=== PATIENT | female | born 1955 | race Caucasian/White ===

== ENCOUNTER 2022-08-09 05:22 | Outpatient (RCR) | payer OTHER, MEDICARE, SELFPAY | END 2022-09-07 23:59 | disposition home or self-care (01) | LOC: MM 05:22 | PROVIDERS: PCP Internal Medicine; Visit Provider Internal Medicine | DX: Z51.81 Encounter for therapeutic drug level monitoring (principal); Z79.01 Long term (current) use of anticoagulants; I48.20 Chronic atrial fibrillation, unspecified | CPT/HCPCS: 85610; G0463 ==

== ENCOUNTER 2022-09-12 10:49 | Outpatient (RCR) | payer OTHER, MEDICARE, SELFPAY | END 2022-10-08 16:45 | disposition home or self-care (01) | LOC: MM 10:49 | PROVIDERS: PCP Internal Medicine; Visit Provider Internal Medicine | DX: Z51.81 Encounter for therapeutic drug level monitoring (principal); Z79.01 Long term (current) use of anticoagulants; I48.20 Chronic atrial fibrillation, unspecified | CPT/HCPCS: 85610; G0463 ==

== ENCOUNTER 2022-10-09 08:57 | Outpatient (RCR) | payer OTHER, MEDICARE, SELFPAY | END 2022-11-08 15:46 | disposition home or self-care (01) | LOC: MM 08:57 | PROVIDERS: Visit Provider Internal Medicine | DX: Z51.81 Encounter for therapeutic drug level monitoring (principal); Z79.01 Long term (current) use of anticoagulants; I48.20 Chronic atrial fibrillation, unspecified | CPT/HCPCS: 85610; G0463 ==

== ENCOUNTER 2022-10-09 14:28 | Outpatient (OUT) | payer OTHER, MEDICARE, SELFPAY ==
--- NOTE | 2022-10-09 14:32 | MR_ITS ---
[address] [address] Patient Name: RODRICK JESSICA MRN: [id number] date: 1955 Sex: F Assigned Patient Location: MRI Current Patient Location: MRI Accession/Order Number: [id number] Exam Date: 10/09/2022 14:40 Report Date: 10/09/2022 21:04 At the request of: RODRICK KNIGHT Procedure: MR shoulder RT wo con EXAM: MR shoulder RT wo con HISTORY: R anterior shoulder pain M25.511, M24.8 COMPARISON: None available. TECHNIQUE: Multi planar, multi sequence MRI imaging of the right shoulder without contrast. FINDINGS: ROTATOR CUFF: Supraspinatus: Full-thickness, near full width tear of the supraspinatus tendon from the footprint with retraction to the level of the acromion. Few posterior junctional fibers may remain intact. Infraspinatus: Tendinosis with without high-grade tear. Subscapularis: Tendinosis with moderate grade partial-thickness partial width interstitial tearing of the superior fibers at the footprint extending to the glenoid. Teres minor: Intact. MUSCULATURE: Moderate fatty atrophy of the supraspinatus muscle belly. Remaining musculature of the shoulder girdle is normal in bulk and signal characteristics. LONG HEAD BICEPS TENDON: Tendinosis of the intra-articular long head biceps tendon. GLENOID LABRUM: Degenerative tearing and maceration of the posterior superior and superior labrum. OSSEOUS STRUCTURES AND JOINTS: No fracture, dislocation, suspicious bone lesion or edema like bone marrow signal. Osseous acromial outlet: Normal alignment of the acromioclavicular joint with mild osteoarthrosis. Type 2 acromion without significant downsloping. Subacromial enthesophyte. Mild edema signal with a small volume of fluid within the subacromial-subdeltoid bursa. Glenohumeral joint: No joint effusion. Articular cartilage is intact. OTHER: No axillary lymphadenopathy or soft tissue mass. MR/MR shoulder RT wo con IMPRESSION: 1. Full-thickness, near full width tear of the supraspinatus tendon from the footprint with retraction to the level of the acromion. 2. Subscapularis tendinosis with moderate grade partial-thickness partial width interstitial tearing of the superior fibers at the footprint extending to the glenoid. 3. Tendinosis of the intra-articular long head biceps tendon. 4. Degenerative tearing and maceration of the posterior superior and superior labrum. 5. Subacromial enthesophyte, which can predispose to extrinsic impingement. 6. Mild acromioclavicular joint osteoarthritis. Electronically authenticated by: AMANDEEP TAPIA Date: 10/09/2022 21:04
== END 2022-10-09 14:29 | disposition home or self-care (01) ==
LOC: MRI 14:29
PROVIDERS: PCP Physician Assistant; Visit Provider Physician Assistant
DX: M25.511 Pain in right shoulder (principal); M24.811 Other specific joint derangements of right shoulder, not elsewhere classified; M75.101 Unspecified rotator cuff tear or rupture of right shoulder, not specified as traumatic
CPT/HCPCS: 73221

== ENCOUNTER 2022-10-24 08:21 | Outpatient (OUT) | payer OTHER, MEDICARE, SELFPAY ==
[2022-10-24 08:49] LABS: Basophils Percent Auto 0.4 % (0.2-2.0); Eosinophils Absolute Auto 0.1 10^3/uL (0.0-0.7); Eosinophils Percent Auto 0.8 % (0.9-7.0); Hemoglobin 12.8 g/dL (12.0-16.0); Immature Granulocytes Abs Auto 0.05 10^3/uL (0.00-0.03); Immature Granulocytes Pct Auto 0.5 % (0.0-0.5); Lymphocytes Absolute Auto 2.2 10^3/uL (1.2-3.8); Lymphocytes Percent Auto 22.6 % (20.5-60.0); Mean Corpuscular Hemoglobin 27.5 pg (26.7-34.0); Mean Platelet Volume 10.2 fL (9.5-13.5); Monocytes Absolute Auto 0.6 10^3/uL (0.3-0.8); Monocytes Percent Auto 6.4 % (1.7-12.0); Neutrophils Absolute Auto 6.9 10^3/uL (1.4-6.5); Neutrophils Percent Auto 69.3 % (43.0-75.0); Platelet Count 170 10^3/uL (150-450); Red Blood Count 4.65 10^6/uL (4.20-5.40); Red Cell Distribution Width 13.7 % (11.0-15.0); White Blood Count 9.9 10^3/uL (4.0-11.0)
[2022-10-24 09:24] LABS: Anion Gap 9.2; BUN Creatinine Ratio 31.8; Calcium 9.6 mg/dL (8.5-10.1); Carbon Dioxide 32.8 mmol/L (21.0-32.0); Chloride 98 mmol/L (98-107); Estimated GFR (African America >60 (>=60); Estimated GFR (Non-African Ame >60 (>=60); Glucose 93 mg/dL (74-106); Sodium 137 mmol/L (136-145)
== END 2022-10-24 08:22 | disposition home or self-care (01) ==
LOC: LAB 08:23
PROVIDERS: PCP Physician Assistant; Visit Provider Internal Medicine Cardiovascular Disease
DX: I10 Essential (primary) hypertension (principal); I48.21 Permanent atrial fibrillation; Z79.899 Other long term (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; Z79.01 Long term (current) use of anticoagulants
CPT/HCPCS: 36415; 80048; 85025

== ENCOUNTER 2022-10-26 09:23 | Outpatient (OUT) | payer OTHER, MEDICARE, SELFPAY ==
[2022-10-26 10:34] LABS: Chol HDL Ratio 2.6; Cholesterol 159 mg/dL (<=200); HDL Cholesterol 62 mg/dL (40-60); Triglycerides 100 mg/dL (<=150)
== END 2022-10-26 09:24 | disposition home or self-care (01) ==
LOC: LAB 09:25
PROVIDERS: PCP Physician Assistant; Visit Provider Nurse Practitioner Family
DX: E07.9 Disorder of thyroid, unspecified (principal); Z13.220 Encounter for screening for lipoid disorders
CPT/HCPCS: 36415; 80061; 84443

== ENCOUNTER 2022-11-09 07:57 | Outpatient (RCR) | payer OTHER, MEDICARE, SELFPAY | END 2022-12-07 16:30 | disposition home or self-care (01) | LOC: MM 07:57 | PROVIDERS: PCP Physician Assistant; Visit Provider Internal Medicine | DX: Z51.81 Encounter for therapeutic drug level monitoring (principal); Z79.01 Long term (current) use of anticoagulants; I48.20 Chronic atrial fibrillation, unspecified | CPT/HCPCS: 85610; G0463 ==

== ENCOUNTER 2022-12-04 08:59 | Outpatient (OUT) | payer OTHER, MEDICARE, SELFPAY ==
[2022-12-04 10:42] LABS: Anion Gap 11.2; Calcium 10.5 mg/dL (8.5-10.1); Carbon Dioxide 32.8 mmol/L (21.0-32.0); Chloride 98 mmol/L (98-107); Estimated GFR (African America >60 (>=60); Estimated GFR (Non-African Ame 52 (>=60); Glucose 95 mg/dL (74-106); Sodium 139 mmol/L (136-145)
== END 2022-12-04 09:00 | disposition home or self-care (01) ==
LOC: LAB 09:00
PROVIDERS: PCP Physician Assistant; Visit Provider Internal Medicine Cardiovascular Disease
DX: E87.6 Hypokalemia (principal); I10 Essential (primary) hypertension
CPT/HCPCS: 36415; 80048

== ENCOUNTER 2022-12-10 02:17 | Outpatient (RCR) | payer OTHER, MEDICARE, SELFPAY | END 2023-01-08 17:33 | disposition home or self-care (01) | LOC: MM 02:17 | PROVIDERS: PCP Physician Assistant; Visit Provider Internal Medicine | DX: Z51.81 Encounter for therapeutic drug level monitoring (principal); Z79.01 Long term (current) use of anticoagulants; I48.20 Chronic atrial fibrillation, unspecified | CPT/HCPCS: 85610; G0463 ==

== ENCOUNTER 2023-01-01 15:21 | Outpatient (OUT) | payer OTHER, MEDICARE, SELFPAY ==
[2023-01-01 15:49] LABS: Anion Gap 10.6; BUN Creatinine Ratio 17.8; Calcium 9.5 mg/dL (8.5-10.1); Carbon Dioxide 27.5 mmol/L (21.0-32.0); Chloride 104 mmol/L (98-107); Estimated GFR (African America >60 (>=60); Estimated GFR (Non-African Ame 51 (>=60); Glucose 75 mg/dL (74-106); Potassium 4.1 mmol/L (3.5-5.1); Sodium 138 mmol/L (136-145)
== END 2023-01-01 15:22 | disposition home or self-care (01) ==
LOC: LAB 15:21
PROVIDERS: PCP Physician Assistant; Visit Provider Internal Medicine Cardiovascular Disease
DX: R60.0 Localized edema (principal); I10 Essential (primary) hypertension
CPT/HCPCS: 36415; 80048

== ENCOUNTER 2023-01-09 00:38 | Outpatient (RCR) | payer OTHER, MEDICARE, SELFPAY | END 2023-02-07 16:44 | disposition home or self-care (01) | LOC: MM 00:38 | PROVIDERS: PCP Physician Assistant; Visit Provider Internal Medicine | DX: Z51.81 Encounter for therapeutic drug level monitoring (principal); Z79.01 Long term (current) use of anticoagulants; I48.20 Chronic atrial fibrillation, unspecified | CPT/HCPCS: 85610; G0463 ==

== ENCOUNTER 2023-01-30 08:39 | Outpatient (OUT) | payer OTHER, MEDICARE, SELFPAY ==
[2023-01-30 09:01] LABS: Basophils Percent Auto 0.6 % (0.2-2.0); Eosinophils Absolute Auto 0.1 10^3/uL (0.0-0.7); Hemoglobin 11.7 g/dL (12.0-16.0); Immature Granulocytes Abs Auto 0.01 10^3/uL (0.00-0.03); Immature Granulocytes Pct Auto 0.2 % (0.0-0.5); Lymphocytes Absolute Auto 1.3 10^3/uL (1.2-3.8); Lymphocytes Percent Auto 25.1 % (20.5-60.0); Mean Corpuscular HGB Conc 30.8 g/dL (29.9-35.2); Mean Corpuscular Hemoglobin 28.3 pg (26.7-34.0); Mean Platelet Volume 10.4 fL (9.5-13.5); Monocytes Absolute Auto 0.3 10^3/uL (0.3-0.8); Monocytes Percent Auto 6.1 % (1.7-12.0); Neutrophils Absolute Auto 3.5 10^3/uL (1.4-6.5); Platelet Count 145 10^3/uL (150-450); Red Blood Count 4.13 10^6/uL (4.20-5.40); Red Cell Distribution Width 14.1 % (11.0-15.0); White Blood Count 5.3 10^3/uL (4.0-11.0)
[2023-01-30 09:50] LABS: Percent Iron Saturation 18.3 %
[2023-01-30 09:51] LABS: Alanine Aminotransferase 22 U/L (14-59); Albumin Globulin Ratio 0.9; Albumin Level 3.4 g/dL (3.4-5.0); Alkaline Phosphatase 87 U/L (46-116); Anion Gap 10.9; Aspartate Amino Transferase 20 U/L (15-37); BUN Creatinine Ratio 26.4; Bilirubin Total 1.1 mg/dL (0.2-1.0); Calcium 9.4 mg/dL (8.5-10.1); Carbon Dioxide 27.1 mmol/L (21.0-32.0); Chloride 105 mmol/L (98-107); Estimated GFR (African America >60 (>=60); Estimated GFR (Non-African Ame >60 (>=60); Glucose 89 mg/dL (74-106); Magnesium 2.1 mg/dL (1.8-2.4); Phosphorus 2.8 mg/dL (2.6-4.7); Sodium 139 mmol/L (136-145); Total Protein 7.4 g/dL (6.4-8.2)
[2023-02-04 00:06] LABS: Vitamin B1 (Thiamine), Blood 213.3 nmol/L (66.5-200.0)
== END 2023-01-30 08:40 | disposition home or self-care (01) ==
LOC: LAB 08:42
PROVIDERS: PCP Internal Medicine
DX: K90.9 Intestinal malabsorption, unspecified (principal); Z98.84 Bariatric surgery status; R53.83 Other fatigue; E55.9 Vitamin D deficiency, unspecified
CPT/HCPCS: 36415; 80053; 82306; 82607; 82728; 82746; 83540; 83550; 83735; 84100; 84425; 85025

== ENCOUNTER 2023-02-08 08:48 | Outpatient (RCR) | payer OTHER, MEDICARE, SELFPAY | END 2023-03-08 15:41 | disposition home or self-care (01) | LOC: MM 08:48 | PROVIDERS: PCP Internal Medicine; Visit Provider Internal Medicine | DX: Z51.81 Encounter for therapeutic drug level monitoring (principal); Z79.01 Long term (current) use of anticoagulants; I48.20 Chronic atrial fibrillation, unspecified | CPT/HCPCS: 85610; G0463 ==

== ENCOUNTER 2023-03-11 00:24 | Outpatient (RCR) | payer OTHER, MEDICARE, SELFPAY | END 2023-04-10 15:42 | disposition home or self-care (01) | LOC: MM 00:24 | PROVIDERS: PCP Internal Medicine; Visit Provider Internal Medicine | DX: Z51.81 Encounter for therapeutic drug level monitoring (principal); Z79.01 Long term (current) use of anticoagulants; I48.20 Chronic atrial fibrillation, unspecified | CPT/HCPCS: 85610; G0463 ==

== ENCOUNTER 2023-04-11 00:39 | Outpatient (RCR) | payer OTHER, MEDICARE, SELFPAY | END 2023-05-09 17:05 | disposition home or self-care (01) | LOC: MM 00:39 | PROVIDERS: PCP Internal Medicine; Visit Provider Internal Medicine | DX: Z51.81 Encounter for therapeutic drug level monitoring (principal); Z79.01 Long term (current) use of anticoagulants; I48.20 Chronic atrial fibrillation, unspecified | CPT/HCPCS: 85610; G0463 ==

== ENCOUNTER 2023-05-06 08:43 | Outpatient (OUT) | payer OTHER, MEDICARE, SELFPAY ==
--- OUTSIDE RECORDS SUMMARY | 2023-05-06 09:05 | XMS_ITS | CCD ---
Author Name Unknown Address [address] [place] [address] Organization [facility] Care Team Providers Care Plush Dresser Name Role Phone STEPHANIE CAVAZOS AM Admitting Unavailable STEPHANIE CAVAZOS AM Attending Unavailable NOEL FARNSWORTH Referring Unavailable NOEL FARNSWORTH Primary Care Unavailable PHYSICIAN, DEFAULT Admitting Unavailable PHYSICIAN, DEFAULT Attending Unavailable NOEL FARNSWORTH Primary Care Unavailable Unavailable Unavailable Unavailable Unavailable SALMA Farnsworth Primary Care Provider TANIA Strickland Attending Provider [phone] DO Sherlyn Rucker Referring Provider GLEN Strickland Attending Provider [phone] DR NOEL FARNSWORTH Primary Care Unavailable MISC, DR CORTEZ Attending Unavailable MISC, DR CORTEZ Admitting Unavailable MISC, DR CORTEZ Consulting Unavailable FASHAIKH DE LA CRUZ H Admitting Unavailable SHAIKH MURILLO H Attending Unavailable DR NOEL FARNSWORTH Primary Care Unavailable DR NOEL FARNSWORTH Primary Care Unavailable ASHLIE, DR NARAYAN Jeter Admitting Unavailabl e ASHLIE, DR NARAYAN Jeter Attending Unavailabl e LEON, DR HARPREET Conner Consulting Unavailable CARYN .KATIE Consulting Unavailaugusto e DR NOEL FARNSWORTH Primary Care Unavailable PRABHAKAR, DR COREY Batista Admitting Unavailable PRABHAKAR, DR COREY Batista Consulting Unavailable PRABHAKAR, DR COREY Batista Attending Unavailable DR NOEL FARNSWORTH Primary Care Unavailable PRABHAKAR, DR COREY Batista Consulting Unavailable PRABHAKAR, DR COREY Batista Attending Unavailable PRABHAKAR, DR COREY Batista Admitting Unavailable FAWWACintia, H Admitting Unavailable FAWLENIN, KOCH H Attending Unavailable DR NOEL FARNSWORTH Primary Care Unavailable FAWWAD, KOCH H Admitting Unavailable FAWWAD, KOCH H Attending Unavailable FARNSWORTH, DR PETERSON Primary Care Unavailable ERWIN, AUDELIA Attending Unavailable ERWIN, AUDELIA Admitting Unavailable ERWIN, AUDELIA Consulting Unavailable ANA MARIA, DR PETERSON Primary Care Unavailable FAWWAD, KOCH H Attending Unavailable FARNSWORTH, DR PETERSON Primary Care Unavailable FAWWAD, KOCH H Admitting Unavailable FAWWAD, KOCH H Admitting Unavailable FAWWAD, KOCH H Attending Unavailable FARNSWORTH, DR PETERSON Primary Care Unavailable FAWWAD, KOCH H Admitting Unavailable FAWWAD, KOCH H Attending Unavailable FARNSWORTH, DR PETERSON Primary Care Unavailable FAWWAD, KOCH H Admitting Unavailable FAWWAD, KOCH H Attending Unavailable FARNSWORTH, DR PETERSON Primary Care Unavailable FAWWAD, KOCH H Attending Unavailable FARNSWORTH, DR PETERSON Primary Care Unavailable FAWWAD, KOCH H Admitting Unavailable FAWWAD, KOCH H Attending Unavailable FARNSWORTH, DR PETERSON Primary Care Unavailable FAWWAD, KOCH H Admitting Unavailable FAWWAD, KOCH H Attending Unavailable FAWWAD, KOCH H Admitting Unavailable FARNSWORTH, DR PETERSON Primary Care Unavailable LALOR, DEEPIKA Attending Unavailable LALOR, PETER Admitting Unavailable LALOR, DEEPIKA Consulting Unavailable FARNSWORTH, DR PETERSON Primary Care Unavailable MISC, DR CORTEZ Attending Unavailable MISC, DR CORTEZ Admitting Unavailable MISC, DR CORTEZ Consulting Unavailable ANA MARIA, DR PETERSON Primary Care Unavailable FARNSWORTH, DR PETERSON Primary Care Unavailable HIGHLANDER, DEEPIKA Chamberlain Attending Unavailable HIGHLANDER, DEEPIKA Chamberlain Admitting Unavailable ZIEBER, DR BETY Pompa Consulting Unavailable HIGHLANDERDEEPIKA Consulting Unavailable LALOR, DEEPIKA Attending Unavailable LALOR, PETER Admitting Unavailable LALOR, DEEPIKA Consulting Unavailable ANA MARIA, DR PETERSON Primary Care Unavailable ANA MARIA, DR PETERSON Primary Care Unavailable PRABHAKAR, DR COREY Batista Consulting Unavailable PRABHAKAR, DR COREY Batista Attending Unavailable PRABHAKAR, DR COREY Batista Admitting Unavailable FAWWAD, KOCH H Attending Unavailable FARNSWORTH, DR PETERSON Primary Care Unavailable FAWWAD, KOCH H Admitting Unavailable Noel Farnsworth Unavailable [facility], Dr. Corey Borrero Attending Soniya vailable Prabhakar, Dr. Corey Borrero Referring Soniya vailable Farnsworth II, Dr. Noel Payne Primary Care Soniya vailable Prabhakar, Dr. Corey Borrero Attending Soniya vailable Prabhakar, Dr. Corey Borrero Referring Soniya vailable Farnsworth II, Dr. Noel Payne Primary Care Soniya vailable Farnsworth, II Noel Primary Care Provider Self, Referral Attending Provider Unavailable Farnsworth, II Noel Attending Provider [phone] HARPREET BROOKE Attending Unavailable LAZARO BORRERO Referring Unavailable FARNSWORTH, NOEL Snow Attending Unavailable ANA MARIA, NOEL Snow Attending Unavailable EDWARDOHARPREET Attending Unavailable BROWNLAZARO Referring Unavailable EDWARDO, HARPREET Snow Attending Unavailable BROWN, LAZARO A Referring Unavailable BROWN, LAZARO Espino Attending Unavailable RINKES, SHERLYN Carbone Attending Unavailable RINSHERLYN ZELAYA Referring Unavailable EDWARDO, HARPREET Snow Attending Unavailable LAZARO BORRERO Referring Unavailable Noel Farnsworth Admitting Unavailable Noel Farnsworth Primary Care Unavailable Noel Farnsworth Attending Unavailable FarnsworthNoel Primary Care Unavailable Farnsworth, Noel Attending Unavailable Noel Farnsworth Admitting Unavailable Neol Farnsworth Primary Care Unavailable Self, Referral Admitting Unavailable Self, Referral Attending Unavailable Noel Farnsworth MD Primary Care Provider [phone] Allergies Allergy Classification Reported Allergen(s) Allergy Type Date of Onset Reaction(s) Facility (1 source) PARFON-FORTE; Translations: [PARFON-FORTE] Propensity to adverse reactions (disorder) 9 [facility] Repository (10 sources) Chlorzoxazone; Translations: [Parafon Forte DSC TABS] Drug Allergy Hives -[facility] y 250 DO Work Phone: (1 source) Parafon Forte DSC Drug allergy (disorder) 5 [facility] Repository (2 sources) Chlorzoxazone Drug Allergy 8 Hives, Unknown [facility] (2 sources) gabapentin Drug Allergy 1 Unknown [facility] Medications Current Medications Medication Drug Class(es) Dates Sig (Normalized) Sig (Original) ascorbic acid 1000 mg oral tablet (2 sources) Vitamin C Ascorbic Acid (vitamin C) 1000 MG tablet 2 tablets 0 Active aspirin 81 mg delayed release oral tablet (2 sources) Platelet Aggregation Inhibitor, Nonsteroidal Anti-inflammatory Drug take 1 tablet by mouth in the morning aspirin 81 MG EC tablet Take 1 tablet by mouth in the morning. 0 Active azithromycin 250 mg oral tablet (2 sources) Macrolide Antimicrobial Start: 04-10-2023 End: 04-24-2023 take 2 tablets by mouth once daily, then take 1 tablet by mouth once daily azithromycin (Zithromax) 250 MG tablet Indications: Acute non-recurrent sinusitis, unspecified location Take 2 tablets (500 mg) by mouth Daily for 1 day, THEN 1 tablet (250 mg) Daily for 6 days. 8 tablet 0 04/17/2023 04/24/2023 Active calcium carbonate 1500 mg oral tablet (12 sources) take 1 tablet by mouth in the morning calcium carbonate 1500 (600 Ca) MG tablet Take 600 mg by mouth in the morning. 0 Active cholecalciferol 1.25 mg oral capsule (2 sources) Vitamin D Start: 02-27-2023 cholecalciferol (Vitamin D-3) 1.25 MG (59543 UT) capsule Indications: Vitamin D deficiency Take one capsule daily 100 capsule 3 02/27/2023 Active copper gluconate 2 mg oral tablet (12 sources) take 1 tablet by mouth in the morning Copper Gluconate 2 MG tablet Take 1 tablet by mouth in the morning. 0 Active ferrous sulfate 325 mg oral tablet (12 sources) Start: 09-14-2022 take 1 tablet by mouth three times weekly ferrous sulfate 325 (65 Fe) MG tablet Indications: Bariatric surgery status TAKE 1 TABLET BY MOUTH 3 TIMES A WEEK (SATURDAY, SATURDAY,SATURDAY) 36 tablet 3 09/14/2022 Active Start: 02-09-2020 take 1 tablet by toni th twice daily FeroSul 325 (65 Fe) MG Oral Tablet TAKE 1 TABLET BY MOUTH TWICE DAILY Quantity: 180 Refills: 0 Ordered: 28-Apr-2020 DO Start : 09-Feb-2020 Active fluticasone propionate 0.05 mg/actuat metered dose nasal spray (2 sources) Corticosteroid Start: 12-05-2022 take 1 spray(s) nasal route in the morning fluticasone (Flonase) 50 MCG/ACT nasal spray Indications: Acute dysfunction of left eustachian tube Administer 1 spray into each nostril in the morning. Shake gently. Before first use, prime pump. After use, clean tip and replace cap.. 16 g 2 12/05/2022 Active loratadine 10 mg oral tablet (12 sources) loratadine (Claritin) 10 MG tablet 1 (one) time each day at the same time. 0 Active Magnesium (5 sources) take 250 mg by mouth in the morning MAGNESIUM PO Take 250 mg by mouth in the morning. 0 Active take 1 tablet by mouth once key y Magnesium 250 MG Oral Tablet TAKE 1 TABLET DAILY. Quantity: 0 Refills: 0 Ordered: 23-Oct-2022 DO Active metoprolol tartrate 25 mg oral tablet (12 sources) beta-Adrenergic Papo Start: 02-27-2023 take 1 tablet by mouth once metoprolol tartrate (Lopressor) 25 MG tablet Indications: Essential hypertension, benign (CMS/HCC) Take 1 tablet (25 mg) by mouth every 12 (twelve) hours 200 tablet 3 02/27/2023 Active Start: 02-09-2020 take 1 tablet by toni th twice daily Metoprolol Tartrate 25 MG Oral Tablet TAKE 1 TABLET TWICE DAILY. Quantity: 180 Refills: 3 Ordered: 23-Oct-2022 Corey Prabhakar MD Start : 09-Feb-2020 Active metroNIDAZOLE 500 mg oral tablet (2 sources) Nitroimidazole Antimicrobial Start: 02-07-2023 take 1 tablet by mouth in the morning metroNIDAZOLE (Flagyl) 500 MG tablet Take 500 mg by mouth in the morning. 0 02/07/2023 Active Dinosaur-3 Fatty Acids (Fish Oil) 1200 MG capsule delayed-release (2 sources) Dinosaur-3 Fatty Ac ids (Fish Oil) 1200 MG capsule delayed-release Fish Oil 0 Active pantoprazole 40 mg delayed release oral tablet (12 sources) Proton Pump Inhibitor Start: 02-27-2023 take 1 tablet by mouth in the morning pantoprazole (ProtoNix) 40 MG EC tablet Indications: Gastroesophageal reflux disease without esophagitis Take 1 tablet (40 mg) by mouth in the morning. 100 tablet 3 02/27/2023 Active Start: 02-09-2020 take 1 tablet by toni th once daily Pantoprazole Sodium 40 MG Oral Tablet Delayed Release TAKE 1 TABLET BY MOUTH EVERY DAY Quantity: 90 Refills: 0 Ordered: 28-Apr-2020 DO Start : 09-Feb-2020 Active potassium chloride 10 meq extended release oral capsule (14 sources) Start: 03-20-2023 potassium chlo ride ER (Micro-K) 10 MEQ ER capsule Indications: Essential hypertension, benign (CMS/HCC) TAKE 3 CAPSULES BY MOUTH THREE TIMES DAILY WITH FOOD 300 capsule 3 03/20/2023 Active Start: 05-09-2022 Potassium Chlo ride Carmen ER 20 MEQ Oral Tablet Extended Release take 4 tablets ( 80 meq) daily Quantity: 360 Refills: 3 Ordered: 23-Oct-2022 Corey Prabhakar MD Start : 09-May-2022 Active new meq Start: 11-06-2021 take 3 tablets by mo uth three times daily Potassium Chloride ER 10 MEQ Oral Tablet Extended Release TAKE 3 TABLETS BY MOUTH 3 TIMES A DAY Quantity: 810 Refills: 3 Ordered: 28-Nov-2021 Corey Prabhakar MD Start : 06-Nov-2021 Active Start: 02-09-2020 take 2 capsules by m out three times daily Potassium Chloride ER 10 MEQ Oral Capsule Extended Release TAKE 2 CAPSULE 3 times daily Quantity: 0 Refills: 0 Ordered: 30-Apr-2020 DO Start : 09-Feb-2020 Active torsemide 20 mg oral tablet (12 sources) Loop Diuretic Start: 10-26-2020 take 1 tablet by mouth once daily torsemide (Demadex) 20 MG tablet Indications: Edema, unspecified type TAKE 1 TABLET BY MOUTH EVERY DAY 100 tablet 3 11/02/2022 Active turmeric extract 500 mg oral capsule (5 sources) take 1 tablet by mouth in the morning Turmeric 500 MG tablet Take 1 tablet by mouth in the morning. 0 Active take 1 tablet by mouth once key y Turmeric 500 MG Oral Tablet one daily Quantity: 0 Refills: 0 Ordered: 09-May-2022 DO Active Zinc (2 sources) zinc 100 MG tabl et 1 (one) time each day at the same time. 0 Active zinc gluconate 50 mg oral tablet (12 sources) take 1 tablet by toni th in the morning zinc gluconate 50 MG tablet Take 50 mg by mouth in the morning. 0 Active Completed/Discontinued Medications Medication Drug Class(es) Dates Sig (Normalized) Sig (Original) cephalexin 500 mg oral capsule (3 sources) Cephalosporin Antibacterial take 1 capsule by mouth every eight hours Cephalexin 500 MG Oral Capsule TAKE 1 CAPSULE EVERY 8 HOURS UNTIL GONE. Quantity: 0 Refills: 0 Ordered: 01-Nov-2021 DO Active famotidine 20 mg oral tablet (12 sources) Histamine-2 Receptor Antagonist Start: 05-04-2020 take 1 tablet by mouth once daily at bedtime as needed Famotidine 20 MG Oral Tablet TAKE 1 TABLET BY MOUTH EVERY DAY AT BEDTIME NEEDED Quantity: 30 Refills: 0 Ordered: 04-May-2020 DO Start : 04-May-2020 Active Fish Oil CAPS (10 sources) Fish Oil CAPS ta ke 1400mg once daily Quantity: 0 Refills: 0 Ordered: 26-Apr-2021 DO Active metOLazone 5 mg oral tablet (4 sources) Thiazide-like Diuretic Start: 11-06-2021 take 1 tablet by mouth every other day metOLazone 5 MG Oral Tablet TAKE 1 TABLET EVERY OTHER DAY Quantity: 45 Refills: 3 Ordered: 09-May-2022 Corey Prabhakar MD Start : 06-Nov-2021 Active new start Multi Vitamin Oral Tablet (10 sources) take 1 tablet by mouth once daily Multi Vitamin Oral Tablet TAKE 1 TABLET DAILY. Quantity: 0 Refills: 0 Ordered: 26-Apr-2021 DO Active Probiotic CAPS (10 sources) Probiotic CAPS T milo as directed Quantity: 0 Refills: 0 Ordered: 26-Apr-2021 DO Active spironolactone 25 mg oral tablet (7 sources) Aldosterone Antagonist Start: 11-06-2021 take 1 tablet by mouth once daily Spironolactone 25 MG Oral Tablet TAKE 1 TABLET DAILY. Quantity: 90 Refills: 3 Ordered: 23-Oct-2022 Corey Prabhakar MD Start : 06-Nov-2021 Active new start Vitamin B 12 TABS (10 sources) Vitamin B 12 TAB S TAKE 1 TABLET DAILY. Quantity: 0 Refills: 0 Ordered: 26-Apr-2021 DO Active Vitamin C 2000 MG TABS (10 sources) Vitamin C 2000 M G TABS Take as directed Quantity: 0 Refills: 0 Ordered: 26-Apr-2021 DO Active Vitamin D3 TABS (10 sources) Vitamin D3 TABS take 80,000 unints as directed. Quantity: 0 Refills: 0 Ordered: 26-Apr-2021 DO Active warfarin sodium 2.5 mg oral tablet (12 sources) Vitamin K Antagonist Start: 08-24-2020 Warfarin Sodium 2.5 MG Oral Tablet Agnes manages warfarin at [facility] Quantity: 0 Refills: 0 Ordered: 23-Apr-2021 DO Start : 24-Aug-2020 Active warfarin (Coumad in) 5 MG tablet 1 (one) time each day at the same time. 0 Active Problems Active Problems Problem Classification Problem Date Documented Date Episodic/Chronic Asthma (2 sources) Asthmatic bronchitis; Translations: [Unspecified asthma, uncomplicated] Onset: 8 12-05-2022 Chronic Cardiac dysrhythmias (14 sources) Unspecified atrial fibrillation; Translations: [Permanent atrial fibrillation] Onset: 8 10-25-2022 Chronic Coagulation and hemorrhagic disorders (2 sources) Thrombocytopenic disorder; Translations: [Thrombocytopenia, unspecified] Onset: 8 12-05-2022 Chronic Conditions associated with dizziness or vertigo (2 sources) Cochlear hydrops of right inner ear; 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, right ear] Onset: 0 12-05-2022 Chronic Deficiency and other anemia (1 source) Iron deficiency anemia, unspecified; Translations: [IRON DEFICIENCY ANEMIA UNSPECIFIED] Onset: 3 Episodic Deficiency and other anemia (1 source) Anemia, unspecified; Translations: [ANEMIA UNSPECIFIED] Onset: 3 Episodic Esophageal disorders (4 sources) Gastroesophageal reflux disease; Translations: [Gastro-esophageal reflux disease without esophagitis] Onset: 1 10-25-2022 Chronic Essential hypertension (12 sources) Essential hypertension; Translations: [Unspecified essential hypertension] Onset: 3 12-05-2022 Chronic Genitourinary symptoms and ill-defined conditions (2 sources) Urge incontinence of urine; Translations: [Urge incontinence] Onset: 3 12-05-2022 Chronic Heart valve disorders (2 sources) Mitral valve prolapse; Translations: [Nonrheumatic mitral (valve) prolapse] Onset: 3 10-25-2022 Chronic Hypertension with complications and secondary hypertension (1 source) Hypertensive heart disease with heart failure; Translations: [HTN HEART DISEASE W/HEART FAIL] Onset: 2 Chronic Menopausal disorders (3 sources) Other primary ovarian failure; 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] Onset: 3 12-05-2022 Chronic Nonmalignant breast conditions (2 sources) Fibrocystic disease of breast; Translations: [Diffuse cystic mastopathy of unspecified breast] Onset: 6 12-05-2022 Chronic Nutritional deficiencies (3 sources) Vitamin D deficiency, unspecified; Translations: [Vitamin D deficiency] Onset: 9 12-05-2022 Chronic Osteoarthritis (2 sources) Osteoarthritis of right knee joint; Translations: [Unilateral primary osteoarthritis, right knee] Onset: 9 12-05-2022 Chronic Osteoporosis (2 sources) Senile osteoporosis; Translations: [Age-related osteoporosis without current pathological fracture] Onset: 0 12-05-2022 Chronic Other aftercare (9 sources) Encounter for therapeutic drug level monitoring; Translations: [ENCOUNTER FOR THERAPEUTIC DRUG LEVEL MONITORING] Onset: 8 Episodic Other aftercare (2 sources) termite helper (current) use of anticoagulants; Translations: [RESIDENTIAL (CURRENT) USE OF ANTICOAGULANTS] Onset: 8 Episodic Other diseases of veins and lymphatics (1 source) Lymphedema, not elsewhere classified; Translations: [Lymphedema, not elsewhere classified] Onset: 3 Chronic Other diseases of veins and lymphatics (2 sources) Lymphedema; Translations: [Lymphedema, not elsewhere classified] Onset: 9 12-05-2022 Chronic Other ear and sense organ disorders (2 sources) Sensorineural hearing loss, unilateral, left ear, with unrestricted hearing on the contralateral side; Translations: [Sensorineural hearing loss, unilateral] Onset: 0 12-05-2022 Chronic Other endocrine disorders (4 sources) Secondary hyperparathyroidism, not elsewhere classified; Translations: [SECONDARY HYPERPARATHYROIDISM NEC] Onset: 3 Chronic Other endocrine disorders (2 sources) Hyperparathyroidism; Translations: [Hyperparathyroidism, unspecified] Onset: 9 12-05-2022 Chronic Other gastrointestinal disorders (5 sources) Intestinal malabsorption, unspecified; Translations: [INTESTINAL MALABSORPTION UNS] Onset: 2 Chronic Other gastrointestinal disorders (2 sources) Abnormal intestinal absorption; Translations: [Intestinal malabsorption, unspecified] Onset: 0 12-05-2022 Chronic Other gastrointestinal disorders (1 source) Bariatric surgery status; Translations: [BARIATRIC SURGERY STATUS] Onset: 3 Episodic Other nervous system disorders (2 sources) Carpal tunnel syndrome; Translations: [Carpal tunnel syndrome, unspecified upper limb] Onset: 8 12-05-2022 Chronic Other nervous system disorders (2 sources) Piriformis syndrome; Translations: [Lesion of sciatic nerve, unspecified lower limb] Onset: 3 12-05-2022 Chronic Other non-traumatic joint disorders (2 sources) Derangement of left shoulder joint; Translations: [Other specific joint derangements of left shoulder, not elsewhere classified] Onset: 7 12-05-2022 Chronic Other non-traumatic joint disorders (2 sources) Monoarthritis; Translations: [Monoarthritis, not elsewhere classified, unspecified site] Onset: 0 12-05-2022 Chronic Other nutritional; endocrine; and metabolic disorders (7 sources) Body mass index 40+ - severely obese; Translations: [Morbid obesity] Chronic Other nutritional; endocrine; and metabolic disorders (1 source) Hypomagnesemia; Translations: [HYPOMAGNESEMIA] Onset: 3 Chronic Other nutritional; endocrine; and metabolic disorders (1 source) Morbid (severe) obesity due to excess calories; Translations: [MORBID SEVERE OBES D/T EXCESS FERNANDO] Onset: 2 Chronic Other nutritional; endocrine; and metabolic disorders (3 sources) Severe obesity; Translations: [Morbid obesity] Chronic Other nutritional; endocrine; and metabolic disorders (2 sources) Hypercalcemia; Translations: [Hypercalcemia] Onset: 8 12-05-2022 Chronic Other nutritional; endocrine; and metabolic disorders (2 sources) Intestinal disaccharidase deficiency; Translations: [Lactose intolerance, unspecified] Onset: 9 12-05-2022 Chronic Other nutritional; endocrine; and metabolic disorders (2 sources) Morbid obesity; Translations: [Morbid (severe) obesity due to excess calories] Onset: 3 12-05-2022 Chronic Other upper respiratory disease (2 sources) Seasonal allergy; Translations: [Other seasonal allergic rhinitis] Onset: 1 12-05-2022 Chronic Other upper respiratory infections (2 sources) Chronic sinusitis; Translations: [Other chronic sinusitis] Onset: 3 12-05-2022 Chronic Other upper respiratory infections (1 source) Acute sinusitis; Translations: [Acute sinusitis, unspecified] 04-17-2023 Episodic Residual codes; unclassified (10 sources) Sleep apnea; Translations: [Unspecified sleep apnea] Chronic Residual codes; unclassified (2 sources) Obstructive sleep apnea syndrome; Translations: [Obstructive sleep apnea (adult) (pediatric)] Onset: 6 12-05-2022 Chronic Screening and history of mental health and substance abuse codes (10 sources) Ex-smoker; Translations: [Personal history of tobacco use] Episodic Thyroid disorders (2 sources) Non-toxic multinodular goiter; Translations: [Nontoxic multinodular goiter] Onset: 5 12-05-2022 Chronic Unclassified (2 sources) DX Onset: 8 Unclassified (5 sources) Chronic atrial fibrillation, unspecified; Translations: [CHRONIC ATRIAL FIBRILLATION UNSPEC] Onset: 3 Unclassified (4 sources) Permanent atrial fibrillation; Translations: [PERMANENT ATRIAL FIBRILLATION] Onset: 2 Unclassified (1 source) Encounter for screening mammogram for malignant neoplasm of breast; Translations: [Encounter for screening mammogram for malignant neoplasm of breast] Onset: 3 Past or Other Problems Problem Classification Problem Date Documented Da te Episodic/Chronic Acquired foot deformities (4 sources) Acquired pes planus of left foot; Translations: [Flat foot [pes planus] (acquired), left foot] Onset: 3 12-05-2022 Episodic Deficiency and other anemia (2 sources) Anemia; Translations: [Anemia, unspecified] Onset: 3 10-25-2022 Episodic E Codes: Fall (1 source) Fall on same level from slipping, tripping and stumbling with subsequent striking against unspecified object, initial encounter; Translations: [FALL SAME LVL SLIP STRK UNS OBJ INT] Onset: 2 Episodic Fluid and electrolyte disorders (12 sources) Hypokalemia; Translations: [Hypopotassemia] Onset: 2 Episodic Malaise and fatigue (7 sources) Other fatigue; Translations: [Fatigue] Onset: 6 Episodic Nutritional deficiencies (2 sources) Vitamin B-complex deficiency ; Translations: [Vitamin B deficiency, unspecified] Onset: 5 12-05-2022 Episodic Other aftercare (15 sources) Drug therapy finding; Translations: [Long-term (current) use of other medications] Onset: 3 01-11-2023 Episodic Other aftercare (1 source) Other shelter (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; Translations: [OTH RESIDENTIAL CURRENT DRUG THERAPY] Onset: 2 Episodic Other aftercare (1 source) termite helper (current) use of aspirin; Translations: [RESIDENTIAL CURRENT USE OF ASPIRIN] Onset: 2 Episodic Other aftercare (2 sources) Taking high risk medication; Translations: [Other shelter (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] Onset: 3 01-11-2023 Episodic Other bone disease and musculoskeletal deformities (2 sources) Disorder of skeletal system; Translations: [Disorder of bone, unspecified] Onset: 9 12-05-2022 Episodic Other connective tissue disease (4 sources) Pain in left foot; Translations: [PAIN IN LEFT FOOT] Onset: 2 Episodic Other connective tissue disease (2 sources) Spasm of cervical paraspinous muscle; Translations: [Other muscle spasm] Onset: 3 08-14-2022 Episodic Other connective tissue disease (2 sources) Acquired trigger finger; Translations: [Trigger finger, unspecified finger] Onset: 8 12-05-2022 Episodic Other connective tissue disease (2 sources) Cramp in limb; Translations: [Cramp and spasm] Onset: 9 12-05-2022 Episodic Other connective tissue disease (2 sources) Decrease in height; Translations: [Loss of height] Onset: 6 12-05-2022 Episodic Other connective tissue disease (2 sources) Left achilles tendonitis; Translations: [Achilles tendinitis, left leg] Onset: 3 12-05-2022 Episodic Other connective tissue disease (2 sources) Bilateral plantar fasciitis; Translations: [Plantar fascial fibromatosis] Onset: 3 12-05-2022 Episodic Other diseases of veins and lymphatics (2 sources) Peripheral venous insufficiency; Translations: [Venous insufficiency (chronic) (peripheral)] Onset: 5 12-05-2022 Episodic Other ear and sense organ disorders (2 sources) Tinnitus of left ear; Translations: [Tinnitus, left ear] Onset: 0 12-05-2022 Episodic Other gastrointestinal disorders (2 sources) History of bypass of stomach; Translations: [Bariatric surgery status] Onset: 6 12-05-2022 Episodic Other injuries and conditions due to external causes (1 source) Other specified injuries of head, initial encounter; Translations: [OTH SPEC INJURIES HEAD INITIAL ENC] Onset: 2 Episodic Other liver diseases (2 sources) Aspartate aminotransferase serum level raised; Translations: [Elevated AST (SGOT)] Onset: 3 12-05-2022 Episodic Other liver diseases (2 sources) Elevated levels of transaminase & lactic acid dehydrogenase; Translations: [Elevated levels of transaminase & lactic acid dehydrogenase] Onset: 8 12-05-2022 Episodic Other non-traumatic joint disorders (2 sources) Shoulder pain; Translations: [Pain in right shoulder] Onset: 3 08-14-2022 Episodic Other skin disorders (9 sources) History of cellulitis; Translations: [Personal history of diseases of skin and subcutaneous tissue] Resolved: 2 Episodic Residual codes; unclassified (12 sources) Bilateral lower limb edema; Translations: [Edema] Onset: 3 01-11-2023 Episodic Residual codes; unclassified (1 source) Localized edema; Translations: [LOCALIZED EDEMA] Onset: 2 Episodic Residual codes; unclassified (2 sources) Edema of lower extremity; Translations: [Localized edema] Onset: 3 12-05-2022 Episodic Skin and subcutaneous tissue infections (10 sources) Cellulitis; Translations: [Cellulitis and abscess of unspecified sites] Onset: 2 01-11-2023 Episodic Spondylosis; intervertebral disc disorders; other back problems (9 sources) Dorsalgia, unspecified; Translations: [Right cervical root neuropathy] Onset: 9 Episodic Thyroid disorders (2 sources) Disorder of thyroid gland; Translations: [Disorder of thyroid, unspecified] Onset: 3 10-25-2022 Episodic Results Test Name Value Interpretation Reference Range Facil ity MM screening mammo BI w/CADo n 02-20-2023 MM screening mammo BI w/CAD [facility] [place] [address] [place] [address] Mammography Report Signed Patient: Marla Figueredo MR#: [id number] 6 : 1955 Acct:[id number] Age/Sex: 67 / F ADM Date: 02/20/23 [facility]: [facility] Room: Type: [facility] [address] Attending Dr: Referral Self Copies to: Noel Farnsworth II, MD SELF,REFERRAL Ordering Provider: SELF,REFERRAL Date of Service: 02/20/23 MM/MM screening mammo BI w/CAD: SCREENING CLINICAL DATA: Screening for malignancy. BILATERAL SCREENING MAMMOGRAMS - FULL FIELD DIGITAL WITH TOMOSYNTHESIS AND CAD Tomosynthesis craniocaudal and mediolateral oblique views of both breasts were obtained using low- dose digital technique. Comparison is made to prior studies from 01/18/2020, 11/23/2020, 10/23/2019, and 06/09/2018. This examination was reviewed with the aid of CAD. There are scattered fibroglandular densities. Benign-appearing lymph nodes are noted along the chest wall. Punctate benign-appearing calcifications are present bilaterally. There are no dominant masses, typically malignant calcifications or architectural distortion. There has been no significant interval change. MM/MM screening mammo BI w/CAD IMPRESSION: NO MAMMOGRAPHIC EVIDENCE OF MALIGNANCY. ROUTINE FOLLOW-UP IS RECOMMENDED IN ONE YEAR. RESULT CODE: 2 Benign Findings(s) DENSITY CODE: 2 (approximately 25-50% glandular) FOLLOW UP: 1YR The false-negative rate of mammography is approximately 10-percent. Management of a palpable abnormality must be based on clinical grounds. Patient was entered into a reminder system with a target due date for the next mammogram. Impression dictated by: Peter Sanchez M.D.02/20/2023 3:18 PM Dictation Location: DWS01 Transcribed By: AJ 02/20/23 1518 Dictated By: Peter Sanchez II, MD 02/20/23 151 Signed By: 02/20/23 1518 [facility] Office Visit (Cardiology)on 10-23-2022 Follow-up visit Diagnoses/Problems Assessed Permanent atrial fibrillation (427.31) (I48.21) High risk medication use (V58.69) (Z79.899) Anticoagulated (V58.61) (Z79.01) Essential hypertension (401.9) (I10) Sleep apnea (780.57) (G47.30) Edema of both legs (782.3) (R60.0) Class 2 severe obesity with serious comorbidity and body mass index (BMI) of 39.0 to 39.9 in adult (278.01,V85.39) (E66.01,Z68.39) Former smoker (V15.82) (Z87.891) Hypokalemia (276.8) (E87.6) Cellulitis of right lower extremity (682.6) (L03.115) Orders Anticoagulated, Essential hypertension, High risk medication use, Permanent atrial fibrillation Basic Metabolic Panel; Status:Active - Retrospective Authorization; Requested for:[id number]; Complete Blood Count; Status:Active - Retrospective Authorization; Requested for:[id number]; Class 2 severe obesity with serious comorbidity and body mass index (BMI) of 39.0 to 39.9 in adult Healthy Weight Tips; Status:Complete - Retrospective Authorization; Done: [id number] Some eating tips that can help you lose weight.; Status:Complete - Retrospective Authorization; Done: [id number] Edema of both legs Renew: Torsemide 20 MG Oral Tablet; TAKE 1 TABLET DAILY Edema of both legs, Essential hypertension Renew: Spironolactone 25 MG Oral Tablet; TAKE 1 TABLET DAILY Edema of both legs, Essential hypertension, Permanent atrial fibrillation Renew: Potassium Chloride Carmen ER 20 MEQ Oral Tablet Extended Release; take 4 tablets ( 80 meq) daily Essential hypertension, High risk medication use, Permanent atrial fibrillation Basic Metabolic Panel; Status:Active - Retrospective Authorization; Requested for:[id number]; Complete Blood Count; Status:Active - Retrospective Authorization; Requested for:[id number]; Essential hypertension, Permanent atrial fibrillation Renew: Metoprolol Tartrate 25 MG Oral Tablet; TAKE 1 TABLET TWICE DAILY SocHx: Former smoker Tobacco Use Screening; Status:Complete; Done: [id number] Patient Instructions Please bring all medicines, vitamins, and herbal supplements with you when you come to the office. Prescriptions will not be filled unless you are compliant with your follow up appointments or have a follow up appointment scheduled as per instruction of your physician. Refills should be requested at the time of your visit. Lab work Follow up in 6 months Chief Complaint MARLA FIGUEREDO is being seen for a 6 month follow-up of. Patient is in the office for follow-up for the problems noted below. Since her last visit several months ago she has had no cardiac events of significance. Her edema in the lower extremities has improved and she no longer goes to the wound clinic. 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 She is on Coumadin therapy for permanent atrial fibrillation managed by the Coumadin clinic at [facility]. Her weight is couple pounds below her previous visit. She has no orthopnea or PND. She is intolerant to CPAP machine and was again reminded to try harder to lose weight to minimize sleep apnea. Apart from the irregular rhythm and the lower extremity edema physical examination was unremarkable. She nevertheless has class II obesity. Assessment/recommenda tions: 1?permanent atrial fibrillation that is asymptomatic. Heart rate is controlled on metoprolol 25 mg twice daily and on chronic anticoagulation with Coumadin managed by the Coumadin clinic at [facility]. 2?essential hypertension under control on metoprolol. 3? history of severe lower extremity edema improved on medical therapy. We will continue triple diuretics and follow renal function closely.. 4?morbid obesity status post bariatric surgery but remains in class II obesity, more aggressive weight loss was recommended 5?high risk medication with anticoagulation with no bleeding problems. 6?nuclear stress test in [place] several years ago was normal, no need to repeat. 7?sleep apnea intolerant to CPAP machine. More weight loss was recommended 8?history of hypokalemia due to aggressive diuresis. Basic metabolic profile will be done every 3 months Surgical History Problems History of Appendectomy History of Carpal tunnel surgery History of Cholecystectomy History of Complete colonoscopy History of Dermatological surgery History of Hernia repair History of Stomach surgery History of Thyroidectomy History of Trigger finger repair History of Varicose vein ligation Past Medical History Problems History of cellulitis (V13.3) (Z87.2) Resolved Date: 27 Apr 2021 Current Meds Medication NameInstruction Calcium 600 MG TABSTAKE 1 TABLET DAILY. Copper Gluconate 2 MG Oral TabletTake 1 tablet daily Famotidine 20 MG Oral TabletTAKE 1 TABLET BY MOUTH EVERY DAY AT BEDTIME NEEDED FeroSul 325 (65 Fe) MG Oral TabletTAKE 1 TABLET BY MOUTH TWICE DAILY Fish Oil CAPStake 1400mg once daily Loratadine 10 MG Oral TabletTAKE 1 TABLET DAILY NEEDED. Magnesium (more content not included)... Normal [place] Tobacco Screening.on 023 Fall risk assessment a) No falls within the last year -[facility] [address] DO Work Phone: Tobacco use status [facility] b) No [facility] [address] DO Work Phone: CBC AUTO DIFFon 08-02-2022 BASO # 0.0 103/ul Normal 0.0-0.1 [facility] Comment on above: Performed By: #### P T, PTT #### [facility] [address] [address] [address] Rey Stewart Basophils/100 WBC (Bld) 0.4 % Normal 0.2-2.0 [facility] Comment on above: Performed By: #### P T, PTT #### [facility] [address] [address] [address] Rey Stweart EO # 0.0 103/ul Normal 0.0-0.7 [facility] Comment on above: Performed By: #### P T, PTT #### [facility] [address] [address] [address] Rey Stewart Eosinophils/100 WBC (Bld) 0.4 % Critically low 0.9-7.0 [facility] Comment on above: Performed By: #### P T, PTT #### [facility] [address] [address] [address] Rey Stewart Erythrocyte distribution width (RBC) [Ratio] 13.9 % Normal 11.0-15.0 [facility] Comment on above: Performed By: #### P T, PTT #### [facility] [address] [place] [address] Dr. Rey Stewart Hematocrit (Bld) [Volume fraction] 37.6 % Normal 36.0-48.0 [facility] Comment on above: Performed By: #### P T, PTT #### [facility] [address] [place] [address] Dr. Rey Stewart Hemoglobin (Bld) [Mass/Vol] 12.1 g/dL Normal 12.0-16.0 [facility] Comment on above: Performed By: #### P T, PTT #### [facility] [address] [place] [address] Dr. Rey Stewart IG # 0.04 10e3/ul Critically high 0.00-0.03 [facility] Comment on above: Performed By: #### P T, PTT #### [facility] [address] [place] [address] Dr. Rey Stewart IG % 0.6 % Critically high 0.0-0.5 [facility] Comment on above: Performed By: #### P T, PTT #### [facility] [address] [place] [address] Dr. Rey Stewart LYMPH # 1.4 103/ul Normal 1.2-3.8 [facility] Comment on above: Performed By: #### P T, PTT #### [facility] [address] [place] [address] Dr. Rey Stewart Lymphocytes/100 WBC (Bld) 19.4 % Critically low 20.5-60.0 [facility] Comment on above: Performed By: #### P T, PTT #### [facility] [address] [place] [address] Dr. Rey Stewart MANUAL DIFF REQ NO Normal [facility] Comment on above: Performed By: #### P T, PTT #### [facility] [address] [place] [address] Dr. Rey Stewart MCH (RBC) [Entitic mass] 28.7 pg Normal 26.7-34.0 [facility] Comment on above: Performed By: #### P T, PTT #### [facility] [address] [place] [address] Dr. Rey Stewart MCHC (RBC) [Mass/Vol] 32.2 g/dL Normal 29.9-35.2 [facility] Comment on above: Performed By: #### P T, PTT #### [facility] [address] [place] [address] Dr. Rey Stewart MCV (RBC) [Entitic vol] 89.1 fL Normal 81.0-99.0 [facility] Comment on above: Performed By: #### P T, PTT #### [facility] [address] [place] [address] Dr. Rey Stewart MONO # 0.4 103/ul Normal 0.3-0.8 [facility] Comment on above: Performed By: #### P T, PTT #### [facility] [address] [place] [address] Dr. Rey Stewart Monocytes/100 WBC (Bld) 5.7 % Normal 1.7-12.0 [facility] Comment on above: Performed By: #### P T, PTT #### [facility] [address] [place] [address] Dr. Rey Stewart NEUT # 5.3 103/ul Normal 1.4-6.5 [facility] Comment on above: Performed By: #### P T, PTT #### [facility] [address] [place] [address] Dr. Rey Stewart Neutrophils/100 WBC (Bld) 73.5 % Normal 43.0-75.0 [facility] Comment on above: Performed By: #### P T, PTT #### [facility] [address] [place] [address] Dr. Rey Stewart Platelet mean volume (Bld) [Entitic vol] 9.8 fL Normal 9.5-13.5 [facility] Comment on above: Performed By: #### P T, PTT #### [facility] [address] [place] [address] Dr. Rey Stewart PLT 182 103/ul Normal 150-450 [facility] Comment on above: Performed By: #### P T, PTT #### [facility] [address] [place] [address] Dr. Rey Stewart RBC 4.22 106/ul Normal 4.20-5.40 [facility] Comment on above: Performed By: #### P T, PTT #### [facility] [address] [place] [address] Dr. Rey Stewart WBC 7.2 103/ul Normal 4.0-11.0 [facility] Comment on above: Performed By: #### P T, PTT #### [facility] [address] [place] [address] Dr. Rey Stewart FERRITINon 08-02-2022 Ferritin [Mass/Vol] 628.0 ng/mL Critically high 8.0-252.0 [facility] Comment on above: Performed By: #### B MP #### [facility] [address] [place] [address] Dr. Rey Stewart IRONon 08-02-2022 Iron [Mass/Vol] 43.0 ug/dL Critically low 50.0-170.0 [facility] Comment on above: Performed By: #### B MP #### [facility] [address] [place] [address] Dr. Rey Stewart MAGNESIUMon 08-02-2022 Magnesium [Mass/Vol] 1.7 mg/dL Critically low 1.8-2.4 [facility] Comment on above: Performed By: #### M G #### [facility] [address] [place] [address] Dr. Rey Stewart PTH INTACTon 06-06-2022 PTH, Intact 123 pg/mL Critically high 15-65 [facility] Comment on above: Performed By: #### P T, PTT #### [facility] [address] [place] [address] Dr. Rey Stewart PROF CHEM 8 (BAS METB)on Anion gap [Moles/Vol] 12.0 mmol/L Normal [facility] Comment on above: Performed By: #### B MP #### [facility] [address] [address] [address] Rey Stewart Calcium [Mass/Vol] 10.3 mg/dL Critically high 8.5-10.1 [facility] Comment on above: Performed By: #### B MP #### [facility] [address] [address] [address] Rey Stewart Chloride [Moles/Vol] 104 mmol/L Normal 98-107 [facility] Comment on above: Performed By: #### B MP #### [facility] [address] [address] [address] Rey Stewart CO2 [Moles/Vol] 32.7 mmol/L Critically high 21.0-32.0 [facility] Comment on above: Performed By: #### B MP #### [facility] [address] [address] [address] Rey Stewart Creatinine [Mass/Vol] 0.79 mg/dL Normal 0.55-1.02 [facility] Comment on above: Performed By: #### B MP #### [facility] [address] [address] [address] Rey Stewart EGFR-AF GREENLANDIC >60 Normal >=60 [facility] Comment on above: Performed By: #### B MP #### [facility] [address] [address] [address] Rey Stewart EGFR-NON AF GREENLANDIC >60 Normal >=60 [facility] Comment on above: Performed By: #### B MP #### [facility] [address] [address] [address] Rey Stewart Glucose [Mass/Vol] 94 mg/dL Normal 74-106 [facility] Comment on above: Performed By: #### B MP #### [facility] [address] [address] [address] Rey Stewart Potassium [Moles/Vol] 3.7 mmol/L Normal 3.5-5.1 [facility] Comment on above: Performed By: #### B MP #### [facility] [address] [address] [address] Rey Stewart Sodium [Moles/Vol] 145 mmol/L Normal 136-145 [facility] Comment on above: Performed By: #### B MP #### [facility] [address] [place] [address] Dr. Rey Stewart Urea nitrogen [Mass/Vol] 33.0 mg/dL Critically high 7.0-18.0 [facility] Comment on above: Performed By: #### B MP #### [facility] [address] [place] [address] Dr. Rey Stewart Urea nitrogen/Creatinin e [Mass ratio] 41.8 mg/mg Normal [facility] Comment on above: Performed By: #### B MP #### [facility] [address] [place] [address] Dr. Rey Stewart VITAMIN D 25 OHon 06-05-2022 VIT D 25-OH 76.2 ng/mL Normal [facility] Comment on above: Performed By: #### V ITAD #### [facility] [address] [place] [address] Dr. Rey Stewart VIT D RANGES SEE BELOW Normal [facility] Comment on above: Result Comment: <20 ng/mL Vit D deficient 20 - <30 ng/mL Vit D insufficient 30 - 100 ng/mL Vit D sufficient >100 ng/mL Potential Toxicity Performed By: #### V ITAD #### [facility] [address] [place] [address] Dr. Rey Stewart Office Visit (Cardiology)on 05-09-2022 Follow-up visit Diagnoses/Problems Assessed Permanent atrial fibrillation with RVR (427.31) (I48.21) Essential hypertension (401.9) (I10) High risk medication use (V58.69) (Z79.899) Sleep apnea (780.57) (G47.30) Class 2 severe obesity with serious comorbidity and body mass index (BMI) of 39.0 to 39.9 in adult (278.01,V85.39) (E66.01,Z68.39) Former smoker (V15.82) (Z87.891) Edema of both legs (782.3) (R60.0) Cellulitis of right lower extremity (682.6) (L03.115) Hypokalemia (276.8) (E87.6) Orders Class 2 severe obesity with serious comorbidity and body mass index (BMI) of 39.0 to 39.9 in adult Healthy Weight Tips; Status:Complete - Retrospective Authorization; Done: 09May2022 Some eating tips that can help you lose weight.; Status:Complete - Retrospective Authorization; Done: 09May2022 Edema of both legs Renew: Torsemide 20 MG Oral Tablet; TAKE 1 TABLET DAILY Edema of both legs, Essential hypertension Renew: metOLazone 5 MG Oral Tablet; TAKE 1 TABLET EVERY OTHER DAY Renew: Spironolactone 25 MG Oral Tablet; TAKE 1 TABLET DAILY Edema of both legs, Essential hypertension, Permanent atrial fibrillation with RVR Start: Potassium Chloride Carmen ER 20 MEQ Oral Tablet Extended Release; take 4 tablets ( 80 meq) daily SocHx: Former smoker Tobacco Use Screening; Status:Complete; Done: 09May2022 Patient Instructions Please bring all medicines, vitamins, and herbal supplements with you when you come to the office. Prescriptions will not be filled unless you are compliant with your follow up appointments or have a follow up appointment scheduled as per instruction of your physician. Refills should be requested at the time of your visit. Follow up in 6 months Same meds The provider reviewed the following test(s) and result(s) with the patient: laboratory tests Chief Complaint MARLA FIGUEREDO is being seen for a 6 month follow-up of. Patient is in the office for follow-up for the problems noted below. Her weight is coming down after losing weight with diuretics and lifestyle changes. She follows with the wound clinic with significant improvement of the lower extremity cellulitis. Her atrial fibrillation remains asymptomatic and she has tolerated Coumadin without a problem. She has no tachycardia. Recent lab data she provided were reviewed with her and her lab data looks good. She has irregular rhythm on examination with 2+ lower extremity edema, the rest of examination was unremarkable. Assessment/recommenda tions: 1?permanent atrial fibrillation that is asymptomatic. Heart rate is controlled on metoprolol 25 mg twice daily and on chronic anticoagulation with Coumadin managed by the Coumadin clinic at [facility]. 2?essential hypertension under control on metoprolol. 3? history of severe lower extremity edema and cellulitis improved significantly after treatment in the wound clinic., Continue diuretic therapy with Demadex, metolazone and spironolactone. 4?morbid obesity status post bariatric surgery but remains significantly obese, patient's weight has come down nicely over the last several months. 5?high risk medication with anticoagulation with no bleeding problems. 6?nuclear stress test in [place] several years ago was normal, no need to repeat. 7?sleep apnea intolerant to CPAP machine. She will try to use it again. 8?history of hypokalemia, requiring large amount of potassium and spironolactone. She will be switched at her request to high concentration potassium 20 mEq/tab. Current Meds Medication NameInstruction Calcium 600 MG TABSTAKE 1 TABLET DAILY. Cephalexin 500 MG Oral CapsuleTAKE 1 CAPSULE EVERY 8 HOURS UNTIL GONE. Copper Gluconate 2 MG Oral TabletTake 1 tablet daily Famotidine 20 MG Oral TabletTAKE 1 TABLET BY MOUTH EVERY DAY AT BEDTIME NEEDED FeroSul 325 (65 Fe) MG Oral TabletTAKE 1 TABLET BY MOUTH TWICE DAILY Fish Oil CAPStake 1400mg once daily Loratadine 10 MG Oral TabletTAKE 1 TABLET DAILY NEEDED. Magnesium 250 MG Oral TabletTAKE 1 TABLET DAILY. metOLazone 5 MG Oral TabletTAKE 1 TABLET EVERY OTHER DAY Metoprolol Tartrate 25 MG Oral TabletTAKE 1 TABLET TWICE DAILY. Multi Vitamin Oral TabletTAKE 1 TABLET DAILY. Pantoprazole Sodium 40 MG Oral Tablet Delayed ReleaseTAKE 1 TABLET BY MOUTH EVERY DAY Potassium Chloride ER 10 MEQ Oral Tablet Extended ReleaseTAKE 3 TABLETS BY MOUTH 3 TIMES A DAY Probiotic CAPSTake as directed Spironolactone 25 MG Oral TabletTAKE 1 TABLET DAILY. Torsemide 20 MG Oral TabletTAKE 1 TABLET DAILY. Turmeric 500 MG Oral Tabletone daily Vitamin B 12 TABSTAKE 1 TABLET DAILY. Vitamin C 2000 MG TABSTake as directed Vitamin D3 TABStake 80,000 unints as directed. Warfarin Sodium 2.5 MG [facility] Zinc 50 MG Oral TabletTAKE 1 TABLET DAILY. Allergies Medication Parafon Forte DSC TABS Allergy; Hives;; Recorded By: Judie Shelley; 03/15/2021 1:41:07 PM Social History Problems Caffeine use (V49.89) (Z78 (more content not included)... Normal [place] CBC AUTO DIFFon 04-24-2022 BASO # 0.0 103/ul Normal 0.0-0.1 [facility] Comment on above: Performed By: #### B MP #### [facility] [address] [place] [address] Dr. Rey Stewart Basophils/100 WBC (Bld) 0.4 % Normal 0.2-2.0 [facility] Comment on above: Performed By: #### B MP #### [facility] [address] [place] [address] Dr. Rey Stewart EO # 0.0 103/ul Normal 0.0-0.7 [facility] Comment on above: Performed By: #### B MP #### [facility] [address] [place] [address] Dr. Rey Stewart Eosinophils/100 WBC (Bld) 0.6 % Critically low 0.9-7.0 [facility] Comment on above: Performed By: #### B MP #### [facility] [address] [place] [address] Dr. Rey Stewart Erythrocyte distribution width (RBC) [Ratio] 14.3 % Normal 11.0-15.0 [facility] Comment on above: Performed By: #### B MP #### [facility] [address] [place] [address] Dr. Rey Stewart Hematocrit (Bld) [Volume fraction] 37.5 % Normal 36.0-48.0 [facility] Comment on above: Performed By: #### B MP #### [facility] [address] [place] [address] Dr. Rey Stewart Hemoglobin (Bld) [Mass/Vol] 11.7 g/dL Critically low 12.0-16.0 [facility] Comment on above: Performed By: #### B MP #### [facility] [address] [place] [address] Dr. Rey Stewart IG # 0.02 10e3/ul Normal 0.00-0.03 [facility] Comment on above: Performed By: #### B MP #### [facility] [address] [place] [address] Dr. Rey Stewart IG % 0.3 % Normal 0.0-0.5 [facility] Comment on above: Performed By: #### B MP #### [facility] [address] [place] [address] Dr. Rey Stewart LYMPH # 1.4 103/ul Normal 1.2-3.8 [facility] Comment on above: Performed By: #### B MP #### [facility] [address] [place] [address] Dr. Rey Stewart Lymphocytes/100 WBC (Bld) 20.4 % Critically low 20.5-60.0 [facility] Comment on above: Performed By: #### B MP #### [facility] [address] [place] [address] Dr. Rey Stewart MANUAL DIFF REQ NO Normal [facility] Comment on above: Performed By: #### B MP #### [facility] [address] [place] [address] Dr. Rey Stewart MCH (RBC) [Entitic mass] 27.9 pg Normal 26.7-34.0 [facility] Comment on above: Performed By: #### B MP #### [facility] [address] [place] [address] Dr. Rey Stewart MCHC (RBC) [Mass/Vol] 31.2 g/dL Normal 29.9-35.2 [facility] Comment on above: Performed By: #### B MP #### [facility] [address] [place] [address] Dr. Rey Stewart MCV (RBC) [Entitic vol] 89.5 fL Normal 81.0-99.0 [facility] Comment on above: Performed By: #### B MP #### [facility] [address] [place] [address] Dr. Rey Stewart MONO # 0.5 103/ul Normal 0.3-0.8 [facility] Comment on above: Performed By: #### B MP #### [facility] [address] [place] [address] Dr. Rey Stewart Monocytes/100 WBC (Bld) 7.1 % Normal 1.7-12.0 [facility] Comment on above: Performed By: #### B MP #### [facility] [address] [address] [address] Rey Stewart NEUT # 5.0 103/ul Normal 1.4-6.5 [facility] Comment on above: Performed By: #### B MP #### [facility] [address] [address] [address] Rey Stewart Neutrophils/100 WBC (Bld) 71.2 % Normal 43.0-75.0 [facility] Comment on above: Performed By: #### B MP #### [facility] [address] [place] [address] Dr. Rey Stewart Platelet mean volume (Bld) [Entitic vol] 10.3 fL Normal 9.5-13.5 [facility] Comment on above: Performed By: #### B MP #### [facility] [address] [place] [address] Dr. Rey Stewart PLT 145 103/ul Critically low 150-450 [facility] Comment on above: Performed By: #### B MP #### [facility] [address] [place] [address] Dr. Rey Stewart RBC 4.19 106/ul Critically low 4.20-5.40 [facility] Comment on above: Performed By: #### B MP #### [facility] [address] [place] [address] Dr. Rey Stewart WBC 7.1 103/ul Normal 4.0-11.0 [facility] Comment on above: Performed By: #### B MP #### [facility] [address] [place] [address] Dr. Rey Stewart IRONon 04-24-2022 Iron [Mass/Vol] 35.0 ug/dL Critically low 50.0-170.0 [facility] Comment on above: Performed By: #### I DURAN #### [facility] [address] [place] [address] Dr. Rey Stewart MAGNESIUMon 04-24-2022 Magnesium [Mass/Vol] 1.8 mg/dL Normal 1.8-2.4 [facility] Comment on above: Performed By: #### B MP, MG #### [facility] [address] [place] [address] Dr. Rey Stewart PROF CHEM 8 (BAS METB)on Anion gap [Moles/Vol] 10.0 mmol/L Normal [facility] Comment on above: Performed By: #### B MP, MG #### [facility] [address] [place] [address] Dr. Rey Stewart Calcium [Mass/Vol] 10.1 mg/dL Normal 8.5-10.1 [facility] Comment on above: Performed By: #### B MP, MG #### [facility] [address] [place] [address] Dr. Rey Stewart Chloride [Moles/Vol] 103 mmol/L Normal 98-107 [facility] Comment on above: Performed By: #### B MP, MG #### [facility] [address] [place] [address] Dr. Rey Stewart CO2 [Moles/Vol] 29.7 mmol/L Normal 21.0-32.0 [facility] Comment on above: Performed By: #### B MP, MG #### [facility] [address] [place] [address] Dr. Rey Stewart Creatinine [Mass/Vol] 0.91 mg/dL Normal 0.55-1.02 [facility] Comment on above: Performed By: #### B MP, MG #### [facility] [address] [place] [address] Dr. Rey Stewart EGFR-AF GREENLANDIC >60 Normal >=60 [facility] Comment on above: Performed By: #### B MP, MG #### [facility] [address] [place] [address] Dr. Rey Stewart EGFR-NON AF GREENLANDIC >60 Normal >=60 [facility] Comment on above: Performed By: #### B MP, MG #### [facility] [address] [place] [address] Dr. Rey Stewart Glucose [Mass/Vol] 89 mg/dL Normal 74-106 [facility] Comment on above: Performed By: #### B MP, MG #### [facility] [address] [place] [address] Dr. Rey Stewart Potassium [Moles/Vol] 3.7 mmol/L Normal 3.5-5.1 [facility] Comment on above: Performed By: #### B MP, MG #### [facility] [address] [address] [address] Rey Stewart Sodium [Moles/Vol] 139 mmol/L Normal 136-145 [facility] Comment on above: Performed By: #### B MP, MG #### [facility] [address] [place] [address] Dr. Rey Stewart Urea nitrogen [Mass/Vol] 20.0 mg/dL Critically high 7.0-18.0 [facility] Comment on above: Performed By: #### B MP, MG #### [facility] [address] [place] [address] Dr. Rey Stewart Urea nitrogen/Creatinin e [Mass ratio] 22.0 mg/mg Normal [facility] Comment on above: Performed By: #### B MP, MG #### [facility] [address] [place] [address] Dr. Rey Stewart VITAMIN B1 (THIAMINE)on 12 Vit. B1, Whole Blood 223.9 nmol/L Critically high 66.5-200.0 [facility] Comment on above: Performed By: #### V ITB1T #### [facility] [address] [place] [address] Dr. Rey Stewart COPPER, SERUM or PLASMAon Copper, Serum 135 ug/dL Normal 80-[address] [facility] Comment on above: Result Comment: Dete ction Limit = 5 Performed By: #### P T, PTT #### [facility] [address] [place] [address] Dr. Rey Stewart ZINC SERUM OR PLASMAon 02-07 Zinc, Plasma or Serum 67 ug/dL Normal 44-115 [facility] Comment on above: Result Comment: Dete ction Limit = 5 Performed By: #### Z inc #### [facility] [address] [place] [address] Dr. Rey Stewart CBC AUTO DIFFon 02-05-2022 BASO # 0.0 103/ul Normal 0.0-0.1 [facility] Comment on above: Performed By: #### B MP #### [facility] [address] [place] [address] Dr. Rey Stewart Basophils/100 WBC (Bld) 0.7 % Normal 0.2-2.0 [facility] Comment on above: Performed By: #### B MP #### [facility] [address] [place] [address] Dr. Rey Stewart EO # 0.0 103/ul Normal 0.0-0.7 [facility] Comment on above: Performed By: #### B MP #### [facility] [address] [place] [address] Dr. Rey Stewart Eosinophils/100 WBC (Bld) 0.4 % Critically low 0.9-7.0 [facility] Comment on above: Performed By: #### B MP #### [facility] [address] [place] [address] Dr. Rey Stewart Erythrocyte distribution width (RBC) [Ratio] 13.9 % Normal 11.0-15.0 [facility] Comment on above: Performed By: #### B MP #### [facility] [address] [place] [address] Dr. Rey Stewart Hematocrit (Bld) [Volume fraction] 34.5 % Critically low 36.0-48.0 [facility] Comment on above: Performed By: #### B MP #### [facility] [address] [place] [address] Dr. Rey Stewart Hemoglobin (Bld) [Mass/Vol] 10.8 g/dL Critically low 12.0-16.0 [facility] Comment on above: Performed By: #### B MP #### [facility] [address] [place] [address] Dr. Rey Stewart IG # 0.01 10e3/ul Normal 0.00-0.03 [facility] Comment on above: Performed By: #### B MP #### [facility] [address] [place] [address] Dr. Rey Stewart IG % 0.2 % Normal 0.0-0.5 [facility] Comment on above: Performed By: #### B MP #### [facility] [address] [place] [address] Dr. Rey Stewart LYMPH # 1.0 103/ul Critically low 1.2-3.8 [facility] Comment on above: Performed By: #### B MP #### [facility] [address] [place] [address] Dr. Rey Stewart Lymphocytes/100 WBC (Bld) 21.7 % Normal 20.5-60.0 [facility] Comment on above: Performed By: #### B MP #### [facility] [address] [place] [address] Dr. Rey Stewart MANUAL DIFF REQ NO Normal [facility] Comment on above: Performed By: #### B MP #### [facility] [address] [place] [address] Dr. Rey Stewart MCH (RBC) [Entitic mass] 28.0 pg Normal 26.7-34.0 [facility] Comment on above: Performed By: #### B MP #### [facility] [address] [place] [address] Dr. Rey Stewart MCHC (RBC) [Mass/Vol] 31.3 g/dL Normal 29.9-35.2 [facility] Comment on above: Performed By: #### B MP #### [facility] [address] [place] [address] Dr. Rey Stewart MCV (RBC) [Entitic vol] 89.4 fL Normal 81.0-99.0 [facility] Comment on above: Performed By: #### B MP #### [facility] [address] [place] [address] Dr. Rey Stewart MONO # 0.4 103/ul Normal 0.3-0.8 [facility] Comment on above: Performed By: #### B MP #### [facility] [address] [address] [address] Rey Stewart Monocytes/100 WBC (Bld) 9.3 % Normal 1.7-12.0 [facility] Comment on above: Performed By: #### B MP #### [facility] [address] [address] [address] Rey Stewart NEUT # 3.1 103/ul Normal 1.4-6.5 [facility] Comment on above: Performed By: #### B MP #### [facility] [address] [address] [address] Rey Stewart Neutrophils/100 WBC (Bld) 67.7 % Normal 43.0-75.0 [facility] Comment on above: Performed By: #### B MP #### [facility] [address] [place] [address] Dr. Rey Stewart Platelet mean volume (Bld) [Entitic vol] 10.2 fL Normal 9.5-13.5 [facility] Comment on above: Performed By: #### B MP #### [facility] [address] [place] [address] Dr. Rey Stewart PLT 152 103/ul Normal 150-450 [facility] Comment on above: Performed By: #### B MP #### [facility] [address] [address] [address] Rey Stewart RBC 3.86 106/ul Critically low 4.20-5.40 [facility] Comment on above: Performed By: #### B MP #### [facility] [address] [place] [address] Dr. Rey Stewart WBC 4.6 103/ul Normal 4.0-11.0 [facility] Comment on above: Performed By: #### B MP #### [facility] [address] [place] [address] Dr. Rey Stewart FERRITINon 02-05-2022 Ferritin [Mass/Vol] 680.0 ng/mL Critically high 8.0-252.0 [facility] Comment on above: Performed By: #### P T, PTT #### [facility] [address] [place] [address] Dr. Rey Stewart IRON AND TIBCon 02-05-2022 % SATURATION 10.6 % Normal [facility] Comment on above: Performed By: #### P T, PTT #### [facility] [address] [place] [address] Dr. Rey Stewart Iron [Mass/Vol] 28.0 ug/dL Critically low 50.0-170.0 [facility] Comment on above: Performed By: #### P T, PTT #### [facility] [address] [place] [address] Dr. Rey Stewart TIBC DIRECT 263.0 ug/dL Normal 250.0-450.0 [facility] Comment on above: Performed By: #### P T, PTT #### [facility] [address] [place] [address] Dr. Rey Stewart MAGNESIUMon 02-05-2022 Magnesium [Mass/Vol] 1.4 mg/dL Critically low 1.8-2.4 [facility] Comment on above: Performed By: #### B MP #### [facility] [address] [place] [address] Dr. Rey Stewart PHOSPHORUSon 02-05-2022 Phosphate [Mass/Vol] 2.9 mg/dL Normal 2.6-4.7 [facility] Comment on above: Performed By: #### B MP #### [facility] [address] [place] [address] Dr. Rey Stewart PROF 14(COMP METB)on 022 Albumin [Mass/Vol] 3.1 g/dL Critically low 3.4-5.0 [facility] Comment on above: Performed By: #### B MP #### [facility] [address] [place] [address] Dr. Rey Stewart Albumin/Globulin [Mass ratio] 0.8 {ratio} Normal [facility] Comment on above: Performed By: #### B MP #### [facility] [address] [place] [address] Dr. Rey Stewart ALP [Catalytic activity/Vol] 60 U/L Normal 46-116 [facility] Comment on above: Performed By: #### B MP #### [facility] [address] [place] [address] Dr. Rey Stewart ALT [Catalytic activity/Vol] 18 U/L Normal 14-59 [facility] Comment on above: Performed By: #### B MP #### [facility] [address] [place] [address] Dr. Rey Stewart Anion gap [Moles/Vol] 8.9 mmol/L Normal [facility] Comment on above: Performed By: #### B MP #### [facility] [address] [place] [address] Dr. Rey Stewart AST [Catalytic activity/Vol] 24 U/L Normal 15-37 [facility] Comment on above: Performed By: #### B MP #### [facility] [address] [place] [address] Dr. Rey Stewart Bilirubin [Mass/Vol] 0.9 mg/dL Normal 0.2-1.0 [facility] Comment on above: Performed By: #### B MP #### [facility] [address] [place] [address] Dr. Rey Stewart Calcium [Mass/Vol] 9.8 mg/dL Normal 8.5-10.1 [facility] Comment on above: Performed By: #### B MP #### [facility] [address] [place] [address] Dr. Rey Stewart Chloride [Moles/Vol] 100 mmol/L Normal 98-107 [facility] Comment on above: Performed By: #### B MP #### [facility] [address] [place] [address] Dr. Rey Stewart CO2 [Moles/Vol] 32.7 mmol/L Critically high 21.0-32.0 [facility] Comment on above: Performed By: #### B MP #### [facility] [address] [place] [address] Dr. Rey Stewart Creatinine [Mass/Vol] 1.02 mg/dL Normal 0.55-1.02 [facility] Comment on above: Performed By: #### B MP #### [facility] [address] [address] [address] Rey Stewart EGFR-AF GREENLANDIC >60 Normal >=60 [facility] Comment on above: Performed By: #### B MP #### [facility] [address] [address] [address] Rey Stewart EGFR-NON AF GRE[place]IC 54 mL/min/1.73m2 Critically low >=60 [facility] Comment on above: Performed By: #### B MP #### [facility] [address] [address] [address] Rey Stewart Globulin (S) [Mass/Vol] 4.1 g/dL Normal [facility] Comment on above: Performed By: #### B MP #### [facility] [address] [address] [address] Rey Stewart Glucose [Mass/Vol] 96 mg/dL Normal 74-106 [facility] Comment on above: Performed By: #### B MP #### [facility] [address] [address] [address] Rey Stewart Potassium [Moles/Vol] 3.6 mmol/L Normal 3.5-5.1 [facility] Comment on above: Performed By: #### B MP #### [facility] [address] [address] [address] Rey Stewart Protein [Mass/Vol] 7.2 g/dL Normal 6.4-8.2 [facility] Comment on above: Performed By: #### B MP #### [facility] [address] [address] [address] Rey Stewart Sodium [Moles/Vol] 138 mmol/L Normal 136-145 [facility] Comment on above: Performed By: #### B MP #### [facility] [address] [address] [address] Rey Stewart Urea nitrogen [Mass/Vol] 28.0 mg/dL Critically high 7.0-18.0 [facility] Comment on above: Performed By: #### B MP #### [facility] [address] [place] [address] Dr. Rey Stewart Urea nitrogen/Creatinin e [Mass ratio] 27.5 mg/mg Normal [facility] Comment on above: Performed By: #### B MP #### [facility] [address] [address] [address] Rey Stewart VIT B12 AND FOLATEon 022 Cobalamin (Vitamin B12) [Mass/Vol] 1002.0 pg/mL Critically high 193.0-986.0 [facility] Comment on above: Performed By: #### P T, PTT #### [facility] [address] [place] [address] Dr. Rey Stewart FOLATE 20.30 ng/mL Normal 8.60-58.90 [facility] Comment on above: Performed By: #### P T, PTT #### [facility] [address] [place] [address] Dr. Rey Stewart VITAMIN D 25 OHon 02-05-2022 VIT D 25-OH 73.5 ng/mL Normal [facility] Comment on above: Performed By: #### P T, PTT #### [facility] [address] [place] [address] Dr. Rey Stewart VIT D RANGES SEE BELOW Normal [facility] Comment on above: Result Comment: <20 ng/mL Vit D deficient 20 - <30 ng/mL Vit D insufficient 30 - 100 ng/mL Vit D sufficient >100 ng/mL Potential Toxicity Performed By: #### P T, PTT #### [facility] [address] [place] [address] Dr. Rey Stewart PROF CHEM 8 (BAS METB)on Anion gap [Moles/Vol] 7.5 mmol/L Normal [facility] Comment on above: Performed By: #### P T, PTT #### [facility] [address] [place] [address] Dr. Rey Stewart Calcium [Mass/Vol] 10.1 mg/dL Normal 8.5-10.1 [facility] Comment on above: Performed By: #### P T, PTT #### [facility] [address] [address] [address] Rey Stewart Chloride [Moles/Vol] 101 mmol/L Normal 98-107 [facility] Comment on above: Performed By: #### P T, PTT #### [facility] [address] [address] [address] Rey tSewart CO2 [Moles/Vol] 34.1 mmol/L Critically high 21.0-32.0 [facility] Comment on above: Performed By: #### P T, PTT #### [facility] [address] [address] [address] Rey Stewart Creatinine [Mass/Vol] 0.85 mg/dL Normal 0.55-1.02 [facility] Comment on above: Performed By: #### P T, PTT #### [facility] [address] [address] [address] Rey Stewart EGFR-AF GREENLANDIC >60 Normal >=60 [facility] Comment on above: Performed By: #### P T, PTT #### [facility] [address] [address] [address] Rey Stewart EGFR-NON AF GRE[place]IC >60 Normal >=60 [facility] Comment on above: Performed By: #### P T, PTT #### [facility] [address] [address] [address] Rey Stewart Glucose [Mass/Vol] 77 mg/dL Normal 74-106 [facility] Comment on above: Performed By: #### P T, PTT #### [facility] [address] [address] [address] Rey Stewart Potassium [Moles/Vol] 3.6 mmol/L Normal 3.5-5.1 [facility] Comment on above: Performed By: #### P T, PTT #### [facility] [address] [address] [address] Rey Stewart Sodium [Moles/Vol] 139 mmol/L Normal 136-145 [facility] Comment on above: Performed By: #### P T, PTT #### [facility] [address] [address] [address] Rey Stewart Urea nitrogen [Mass/Vol] 26.0 mg/dL Critically high 7.0-18.0 [facility] Comment on above: Performed By: #### P T, PTT #### [facility] [address] [place] [address] Dr. Rey Stewart Urea nitrogen/Creatinin e [Mass ratio] 30.6 mg/mg Normal [facility] Comment on above: Performed By: #### P T, PTT #### [facility] [address] [place] [address] HEAD WO CONon 11-10-2021 CT HEAD WO CON EXAMINATION: CT HEAD WO CON, 11/10/2021 1:59 PM EDT HISTORY: UNSPECIFIED INJURY OF HEAD, INITIAL ENCOUNTER COMPARISON: None. TECHNIQUE: CT scan of the head was performed without IV contrast. CT dose reduction technique was used, including Automated Exposure Control. FINDINGS: BRAIN: Mild generalized supratentorial atrophy. Mild white matter hypoattenuation, chronic small vessel ischemic changes are favored. No focal parenchymal hemorrhage or mass. CSF SPACES: No hydrocephalus, subarachnoid hemorrhage, or mass. Appropriate for age. SKULL: No fracture, mass, or other significant visible lesion. SINUSES: No significant mucosal thickening or fluid on the limited views. ORBITS: No appreciable abnormality on the limited views. OTHER: Negative IMPRESSION: Atrophy and white matter disease. No acute intracranial abnormality Electronically authenticated by: HARPREET QUINTERO Date: 2021-11-10 14:33 Normal [facility] PROTIMEon 11-10-2021 INR Coag (PPP) [Relative time] 2.75 {INR} Normal [facility] Comment on above: Performed By: #### P T, PTT #### [facility] [address] [place] [address] Dr. Rey Stewart INR GUIDELINES SEE BELOW Normal [facility] Comment on above: Result Comment: MOUNIKA RED INR: 2.0 - 3.0 CONDITIONS NOT LISTED BELOW 2.5 - 3.5 FOR PROSTHETIC HEART VALVE REPLACEMENT 2.5 - 3.5 RECURRENT THROMBOSIS Performed By: #### P T, PTT #### [facility] [address] [place] [address] Dr. Rey Stewart PT Coag (PPP) [Time] 27.8 s Critically high 9.0-11.6 [facility] Comment on above: Performed By: #### P T, PTT #### [facility] [address] [place] [address] Dr. Rey Stewart PTTon 11-10-2021 aPTT Coag (Bld) [Time] 48.4 s Critically high 22.3-36.2 [facility] Comment on above: Performed By: #### P T, PTT #### [facility] [address] [place] [address] Dr. Rey Stewart POTASSIUMon 11-09-2021 Potassium [Moles/Vol] 3.4 mmol/L Critically low 3.5-5.1 [facility] Comment on above: Performed By: #### B MP #### [facility] [address] [place] [address] Dr. Rey Stewart PROF CHEM 8 (BAS METB)on Anion gap [Moles/Vol] 9.7 mmol/L Normal [facility] Comment on above: Performed By: #### P T, PTT #### [facility] [address] [place] [address] Dr. Rey Stewart Calcium [Mass/Vol] 10.2 mg/dL Critically high 8.5-10.1 [facility] Comment on above: Performed By: #### P T, PTT #### [facility] [address] [place] [id number] Dr. Rey Stewart Chloride [Moles/Vol] 98 mmol/L Normal 98-107 [facility] Comment on above: Performed By: #### P T, PTT #### [facility] [address] [place] [address] Dr. Rey Stewart CO2 [Moles/Vol] 36.0 mmol/L Critically high 21.0-32.0 [facility] Comment on above: Performed By: #### P T, PTT #### [facility] [address] [address] [address] Rey Stewart Creatinine [Mass/Vol] 0.99 mg/dL Normal 0.55-1.02 [facility] Comment on above: Performed By: #### P T, PTT #### [facility] [address] [address] [address] Rey Stewart EGFR-AF GREENLANDIC >60 Normal >=60 [facility] Comment on above: Performed By: #### P T, PTT #### [facility] [address] [address] [address] Rey Stewart EGFR-NON AF GREENLANDIC 56 mL/min/1.73m2 Critically low >=60 [facility] Comment on above: Performed By: #### P T, PTT #### [facility] [address] [address] [address] Rey Stewart Glucose [Mass/Vol] 98 mg/dL Normal 74-106 [facility] Comment on above: Performed By: #### P T, PTT #### [facility] [address] [address] [address] Rey Stewart Potassium [Moles/Vol] 2.6 mmol/L Critically low 3.5-5.1 [facility] Comment on above: Performed By: #### P T, PTT #### [facility] [address] [address] [address] Rey Stewart Sodium [Moles/Vol] 139 mmol/L Normal 136-145 [facility] Comment on above: Performed By: #### P T, PTT #### [facility] [address] [address] [address] Rey Stewart Urea nitrogen [Mass/Vol] 37.0 mg/dL Critically high 7.0-18.0 [facility] Comment on above: Performed By: #### P T, PTT #### [facility] [address] [address] [address] Rey Stewart Urea nitrogen/Creatinin e [Mass ratio] 37.4 mg/mg Normal [facility] Comment on above: Performed By: #### P T, PTT #### [facility] [address] [place], [place] [address] Dr. Rey Stewart Office Visit (Cardiology)on 11-01-2021 Follow-up visit Diagnoses/Problems Assessed Permanent atrial fibrillation with RVR (427.31) (I48.21) Edema of both legs (782.3) (R60.0) Essential hypertension (401.9) (I10) Sleep apnea (780.57) (G47.30) High risk medication use (V58.69) (Z79.899) Former smoker (V15.82) (Z87.891) Morbid obesity with BMI of 40.0-44.9, adult (278.01,V85.41) (E66.01,Z68.41) Cellulitis of right lower extremity (682.6) (L03.115) Orders Edema of both legs, Permanent atrial fibrillation with RVR Basic Metabolic Panel; Status:Active - Retrospective Authorization; Requested for:09Nov2021; Morbid obesity with BMI of 40.0-44.9, adult Healthy Weight Tips; Status:Complete - Retrospective Authorization; Done: [id number] Some eating tips that can help you lose weight.; Status:Complete - Retrospective Authorization; Done: [id number] SocHx: Former smoker Tobacco Use Screening; Status:Complete; Done: [id number] Unlinked Stop: metOLazone 5 MG Oral Tablet Patient Instructions Please bring all medicines, vitamins, and herbal supplements with you when you come to the office. Prescriptions will not be filled unless you are compliant with your follow up appointments or have a follow up appointment scheduled as per instruction of your physician. Refills should be requested at the time of your visit. Patient is currently taking Metolazone 5 mg daily x 5 days only , first dose today. Patient will weigh herself and call office with update. Dr. Corey Prabhakar MD will decide if rx if Metolazone 5 mg will be given every other day. Follow up in 6 months Chief Complaint MARLA FIGUEREDO is being seen for a 6 month follow-up of. Patient is in the office for follow-up for the problems noted below. She continues to have chronic atrial fibrillation managed with rate control and Coumadin therapy managed by the Coumadin clinic at [facility]. She does have chronic lower extremity edema with recurrent cellulitis. This is mostly caused by her morbid obesity and venous insufficiency. She is currently on Demadex and her PCP yesterday placed her on metolazone 5 mg daily for 5 days. She was having cellulitis in the right lower extremity and was given antibiotic therapy. She has no palpitations or dyspnea. She has sleep apnea but has not been able to tolerate CPAP machine. Her weight has not changed from last visit. She has irregular rhythm and 2+ bilateral lower extremity edema and clear lungs. She has no tachycardia. Assessment/recommenda tions: 1?permanent atrial fibrillation that is asymptomatic. Heart rate is controlled on metoprolol 25 mg twice daily and on chronic anticoagulation with Coumadin managed by the Coumadin clinic at [facility]. We agreed to pursue rate control versus rhythm control in this case through mutual agreement with the patient 2?essential hypertension under control on metoprolol. 3?lower extremity edema with right lower extremity cellulitis on Demadex, PCP added metolazone 5 doses yesterday. We will check her basic metabolic profile and the response next week. If it works we will maintain metolazone 5 mg every other day and monitor renal function closely. 4?morbid obesity status post bariatric surgery but remains morbidly obese. Lifestyle modifications to lose weight were discussed with the patient. 5?high risk medication with anticoagulation with no bleeding problems. 6?nuclear stress test in [place] several years ago was normal, no need to repeat. 7?sleep apnea intolerant to CPAP machine. Surgical History Problems History of Appendectomy History of Carpal tunnel surgery History of Cholecystectomy History of Complete colonoscopy History of Hernia repair History of Stomach surgery History of Thyroidectomy History of Trigger finger repair History of Varicose vein ligation Past Medical History Problems History of cellulitis (V13.3) (Z87.2) Resolved Date: 27 Apr 2021 Current Meds Medication NameInstruction Calcium 600 MG TABSTAKE 1 TABLET DAILY. Cephalexin 500 MG Oral CapsuleTAKE 1 CAPSULE EVERY 8 HOURS UNTIL GONE. Copper Gluconate 2 MG Oral TabletTake 1 tablet daily Famotidine 20 MG Oral TabletTAKE 1 TABLET BY MOUTH EVERY DAY AT BEDTIME NEEDED FeroSul 325 (65 Fe) MG Oral TabletTAKE 1 TABLET BY MOUTH TWICE DAILY Fish Oil CAPStake 1400mg once daily Loratadine 10 MG Oral TabletTAKE 1 TABLET DAILY NEEDED. metOLazone 5 MG Oral TabletTAKE 1 TABLET DAILY. Metoprolol Tartrate 25 MG Oral TabletTAKE 1 TABLET TWICE DAILY. Multi Vitamin Oral TabletTAKE 1 TABLET DAILY. Pantoprazole Sodium 40 MG Oral Tablet Delayed ReleaseTAKE 1 TABLET BY MOUTH EVERY DAY Potassium Chloride ER 10 MEQ Oral Capsule Extended ReleaseTAKE 2 CAPSULE 3 times daily Probiotic CAPSTake as directed Torsemide 20 MG Oral TabletTAKE 1 TABLET DAILY. Vitamin B 12 TABSTAKE 1 TABLET DAILY. Vitamin C 2000 MG TABSTake as directed Vitamin D3 TABStake 80,000 unints as directed. Warfarin Sodium 2.5 MG [facility] (more content not included)... Normal [place] Tobacco Screening.on Fall risk assessment a) No falls within the last year [facility] 250 DO Work Phone: Tobacco use status [facility] b) No -[facility] 250 DO Work Phone: Tobacco Screening.on Adult depression screening assessment No [facility] 250 DO Work Phone: Fall risk assessment a) No falls within the last year [facility] 250 DO Work Phone: Tobacco use status [facility] b) No [facility] 250 DO Work Phone: Vital Signs Date Time Vital Sign Value Performing Clinician Facility 04-17-2023 14:08-0500 Body height 162.6 cm Noel Farnsworth MD Work Phone: [facility] 04-17-2023 14:08-0500 Body mass index (BMI) [Ratio] 41.37 kg/m2 Noel Farnsworth MD Work Phone: [facility] 04-17-2023 14:08-0500 Body temperature 98.71 [degF] Noel Farnsworth MD Work Phone: [facility] 04-17-2023 14:08-0500 Body weight 109.32 kg Noel Farnsworth MD Work Phone: [facility] 04-17-2023 14:08-0500 Diastolic blood pressure 80 mm[Hg] Noel Farnsworth MD Work Phone: [facility] 04-17-2023 14:08-0500 Heart rate 82 /min Noel Farnsworth MD Work Phone: [facility] 04-17-2023 14:08-0500 SaO2% (BldA) [Mass fraction] 98 % Noel Farnsworth MD Work Phone: [facility] 04-17-2023 14:08-0500 Systolic blood pressure 128 mm[Hg] Noel Farnsworth MD Work Phone: [facility] 10-23-2022 11:59-0400 Body height 165.1 cm Noel Farnsowrth Work Phone: [facility] 250 DO Work Phone: 10-23-2022 11:59-0400 Body mass index (BMI) [Ratio] 39.44 kg/m2 Noel Farnsworth Work Phone: [facility] 250 DO Work Phone: 10-23-2022 11:59-0400 Body surface area Derived from formula 2.13 m2 Noel Farnsworth Work Phone: [facility] 250 DO Work Phone: 10-23-2022 11:59-0400 Body weight 107.5 kg Noel Farnsworth Work Phone: [facility] 250 DO Work Phone: 10-23-2022 11:59-0400 Diastolic blood pressure 68 mm[Hg] Noel Farnsworth Work Phone: [facility] 250 DO Work Phone: 10-23-2022 11:59-0400 Heart rate 72 /min Noel Farnsworth Work Phone: [facility] 250 DO Work Phone: 10-23-2022 11:59-0400 Systolic blood pressure 110 mm[Hg] Noel Farnsworth Work Phone: [facility] 250 DO Work Phone: 11-01-2021 09:33-0400 Body height 165.1 cm Corey Prabhakar MD Work Phone: [facility] 250 DO Work Phone: 11-01-2021 09:33-0400 Body mass index (BMI) [Ratio] 41.81 kg/m2 Corey Prabhakar MD Work Phone: [facility] 250 DO Work Phone: 11-01-2021 09:33-0400 Body surface area Derived from formula 2.18 m2 Corey Prabhakar MD Work Phone: [facility] 250 DO Work Phone: 11-01-2021 09:33-0400 Body weight 113.97 kg Corey Prabhakar MD Work Phone: [facility] 250 DO Work Phone: 11-01-2021 09:33-0400 Diastolic blood pressure 62 mm[Hg] Corey Prabhakar MD Work Phone: [facility] 250 DO Work Phone: 11-01-2021 09:33-0400 Heart rate 60 /min Corey Prabhakar MD Work Phone: [facility] 250 DO Work Phone: 11-01-2021 09:33-0400 Systolic blood pressure 108 mm[Hg] Corey Prabhakar MD Work Phone: [facility] 250 DO Work Phone: 04-26-2021 11:21-0500 Body height 165.1 cm Corey Prabhakar MD Work Phone: [facility] 250 DO Work Phone: 04-26-2021 11:21-0500 Body mass index (BMI) [Ratio] 42.77 kg/m2 Corey Prabhakar MD Work Phone: [facility] 250 DO Work Phone: 04-26-2021 11:21-0500 Body surface area Derived from formula 2.2 m2 Corey Prabhakar MD Work Phone: [facility] 250 DO Work Phone: 04-26-2021 11:21-0500 Body weight 116.58 kg Corey Prabhakar MD Work Phone: [facility] 250 DO Work Phone: 04-26-2021 11:21-0500 Diastolic blood pressure 84 mm[Hg] Corey Prabhakar MD Work Phone: [facility] 250 DO Work Phone: 04-26-2021 11:21-0500 Heart rate 59 /min Corey Prabhakar MD Work Phone: [facility] 250 DO Work Phone: 04-26-2021 11:21-0500 Systolic blood pressure 113 mm[Hg] Corey Prabhakar MD Work Phone: [facility] 250 DO Work Phone: Encounters Encounter Date Encounter Type Care Provider Facility Start: 04-17-2023 End: 04-17-2023 ambulatory NOEL FARNSWORTH Not Available Start: 04-17-2023 End: 04-17-2023 Office outpatient visit 15 minutes Noel Farnsworth MD Work Phone: [facility] Comment on above: Acute non-recurrent sinusitis, unspecified location Start: 04-17-2023 Reed Be Sportiain Glynn Work Phone: [facility] Start: 04-17-2023 Bamboo flowsheet Noel martel MD Work Phone: [facility] Start: 04-10-2023 End: 04-10-2023 ambulatory NOEL Snow ANA MARIA Not Available Start: 03-25-2023 End: 03-25-2023 ambulatory Noel Farnsworth Facility:[facility] Start: 03-25-2023 End: 03-25-2023 ambulatory II Noel Farnsworth Work Phone: [facility] Work Phone: Start: 03-25-2023 End: 03-25-2023 Patient encounter procedure II Noel Farnsworth Work Phone: [facility] Work Phone: Start: 03-07-2023 End: 03-07-2023 Patient encounter procedure II Noel Farnsworth Work Phone: [facility] Work Phone: Start: 03-01-2023 End: 03-01-2023 ambulatory HARPREET Snow EDWARDO Not Available Start: 02-20-2023 End: 02-20-2023 ambulatory Noel Farnsworth Facility:[facility] Start: 02-20-2023 End: 02-20-2023 ambulatory II Noel Farnsworth Work Phone: [facility] Work Phone: Start: 02-20-2023 End: 02-20-2023 Patient encounter procedure II Noel Farnsworth Work Phone: [facility] Work Phone: Start: 02-15-2023 End: 02-15-2023 ambulatory SHERLYN RUCKER Not Available Start: 02-14-2023 End: 02-14-2023 ambulatory LAZARO BORRERO Not Available Start: 02-13-2023 End: 02-13-2023 ambulatory HARPREET Snow EDWARDO Not Available Start: 01-29-2023 End: 01-29-2023 ambulatory HARPREET Snow EDWARDO Not Available Start: 01-24-2023 End: 01-24-2023 ambulatory HARPREET Snow EDWARDO Not Available Start: 11-20-2022 Telephone encounter Noel navarretedelonte Work Phone: [facility] 250 DO Work Phone: Start: 11-13-2022 End: 11-14-2022 ambulatory Noel Farnsworth Facility:[facility] Start: 10-23-2022 Office outpatient vi sit 25 minutes Noel Farnsworth Work Phone: [facility] 250 DO Work Phone: Start: 10-23-[address] Corey Prabhakar Facility: Start: 08-02-2022 End: 08-03-[address] NOEL FARNSWORTH Facility:[facility] Start: 07-09-2022 End: 08-08-2022 ambulatory KOCH H FAWWACintia Facility:[facility] Start: 06-11-2022 End: 07-06-2022 ambulatory KOCH H FAWWAD Facility:[facility] Start: 06-05-2022 End: 06-06-2022 ambulatory AUDELIA HOOD Facility:[facility] Start: 05-09-[address] Corey Prabhakar Facility: Start: 05-09-2022 End: 06-08-2022 ambulatory KOCH H FAWWAD Facility:[facility] Start: 04-24-2022 End: 04-25-2022 ambulatory DEEPIKA JOHNSON Facility:[facility] Start: 04-11-2022 End: 05-09-2022 ambulatory KOCH H FAWWAD Facility:[facility] Start: 03-12-2022 End: 04-11-2022 ambulatory KOCH H FAWWAD Facility:[facility] Start: 02-08-2022 End: 03-11-2022 ambulatory KOCH H FAWWAD Facility:[facility] Start: 02-05-2022 End: 02-06-2022 ambulatory DEEPIKA JOHNSON Facility:[facility] Start: 02-05-2022 End: 02-06-[address] DOCTOR KIDD Facility:[facility] Start: 01-17-2022 End: 01-17-2022 ambulatory SALMA Farnsworth Work Phone: [facility] Work Phone: Start: 01-17-2022 End: 01-17-2022 Patient encounter procedure II Noel Farnsworth Work Phone: [facility] Start: 01-09-2022 End: 02-07-2022 ambulatory SHAIKH Connie MURILLO Facility:[facility] Start: 12-25-2021 End: 12-25-2021 ambulatory II Noel Farnsworth Work Phone: [facility] Work Phone: Start: 12-25-2021 End: 12-25-2021 Discharged Recurring II Noel Farnsworth Work Phone: [facility] [employer] [address] Start: 12-25-2021 Registered Recurring II Noel Farnsworth Work Phone: [facility] [employer] [address] Start: 12-10-2021 End: 01-08-2022 ambulatory SHAIKH Connie MURILLO Facility:[facility] Start: 11-28-2021 Rx Renewal Corey Prabhakar MD Work Phone: [facility] 250 DO Work Phone: Start: 11-19-2021 Encounter for genera l adult medical examination without abnormal findings DR COREY PRABHAKAR [facility] Start: 11-14-2021 End: 11-15-[address] NOEL FARNSWORTH Facility:[facility] Start: 11-14-2021 End: 11-15-2021 Encounter for general adult medical examination without abnormal findings DR NOEL FARNSWORTH Facility:[facility] Start: 11-10-2021 End: 11-10-[address] NOEL FARNSWORTH Facility:[facility] Start: 11-09-2021 End: 11-10-[address] NOEL FARNSWORTH Facility:[facility] Start: 11-09-2021 End: 12-09-2021 ambulatory SHAIKH Connie MURILLO Facility:[facility] Start: 11-06-2021 Telephone encounter Corey dawkins MD Work Phone: [facility] 250 DO Work Phone: Start: 11-06-2021 End: 11-07-[address] NOEL FARNSWORTH Facility:[facility] Start: 11-01-2021 Office outpatient vi sit 25 minutes Corey [facility]ar MD [facility] Work Phone: Start: 10-09-2021 End: 11-08-2021 ambulatory KOCH H LIDIA Facility:[facility] Start: 09-15-2021 End: 09-16-[address] NOEL FARNSWORTH Facility:[facility] Start: 09-08-2021 End: 10-06-2021 ambulatory SHAIKH Connie MURILLO Facility:[facility] Start: 07-26-2021 Rx Renewal Corey Prabhakar MD Work Phone: [facility] 250 DO Work Phone: Start: 04-26-2021 Office outpatient vi sit 25 minutes Corey [facility]hakar MD [facility] Work Phone: Start: 04-26-2021 Patient encounter procedure Corey Prabhakar MD [facility] Work Phone: Start: 12-09-2017 End: 12-10-2017 Patient encounter procedure DEFAULT PHYSICIAN Facility:[facility] Start: 09-16-2017 End: 09-17-2017 Patient encounter procedure STEPHANIE CAVAZOS Facility:[facility] Procedures Date Procedure Procedure Detail Performing Clinician Start: 03-25-2023 Dual energy X-ray absorptiometry II Noel Farnsworth Work Phone: Start: 02-20-2023 Screening mammograph y of bilateral breasts II Noel Farnsworth Work Phone: Start: 01-17-2022 End: 01-17-2022 Screening mammography of bilateral breasts II Noel Farnsworth Work Phone: Start: 03-30-2020 Colonoscopy Noel read MD Work Phone: Start: 07-04-2015 History of thyroidectomy H/O thyroid ectomy Noel Farnsworth MD Work Phone: Appendectomy Corey Prabhakar MD Work Phone: Cholecystectomy Corey faust MD Work Phone: Decompression of med david nerve Corey Prabhakar MD Work Phone: Ligation of varicose vein Sutton steffen Prabhakar MD Work Phone: Operation on skin Noel B B erry Work Phone: Operation on stomach Corey Prabhakar MD Work Phone: Release of trigger finger Sutton steffen Prabhakar MD Work Phone: Thyroidectomy Corey Prabhakar MD Work Phone: Total colonoscopy Corey dawkins MD Work Phone: Plan of Treatment Date Care Activity Detail Author Start: 03-30-2030 Screening for malign ant neoplasm of colon [facility] Start: 03-18-2024 End: 03-18-2024 Patient encounter procedure 03/18/2024 9:45 AM EST Office Visit [facility] [address] [place] [id number] Sherlyn Rucker DO [address] [place], [place] [id number] [facility] Start: 02-16-2024 Medicare Annual Wellness (AWV) Medicare Annual Wellness (AWV) [facility] Start: 10-29-2023 End: 10-29-2023 Patient encounter procedure 10/29/2023 9:30 AM EDT Office Visit [facility] [address] [facility] [address] [place] [phone] Denisha Hreron, RUFFLER [address] [place] [address] [facility] Start: 07-25-2023 End: 07-25-2023 Patient encounter procedure 07/25/2023 9:30 AM EDT Office Visit [facility] [address] [facility] [address] Lazaro Borrero, DO [address] [place] [address] [facility] Start: 05-01-2023 End: 05-01-2023 Patient encounter procedure 05/01/2023 9:30 AM EST Office Visit [facility] [address] [facility] [address] [place] [address] Noel Farnsworth MD [address] [facility] [address] [place] [address] [facility] Start: 04-24-2023 FUV, Provider: Corey Prabhakar, Status: Pen, Time: 9:30 AM FUV, Provider: Corey Prabhakar, Status: Pen, Time: 9:30 AM [facility] 250 DO Work Phone: Start: 04-17-2023 End: 04-17-2023 Patient encounter procedure 04/17/2023 2:15 PM EST Office Visit [facility] [address] [facility] [address] [place] [id number] Noel Farnsworth MD [address] [facility] [address] [place] [address] Arrived [facility] Comment on above: Arrived Start: 01-17-2023 Screening for malign ant neoplasm of breast Mammogram [facility] Start: 11-09-2022 Influenza vaccination Influenza Vacc ine (#1) [facility] Start: 05-09-2022 FUV, Provider: Corey Prabhakar, Status: Pen, Time: 9:20 AM FUV, Provider: Corey Prabhakar, Status: Pen, Time: 9:20 AM [facility] 250 DO Work Phone: Start: 11-01-2021 FUV, Provider: Corey Prabhakar, Status: Pen, Time: 9:30 AM FUV, Provider: Corey Prabhakar, Status: Pen, Time: 9:30 AM [facility] 250 DO Work Phone: Start: 1961 Pneumococcal Vaccine : 65+ Years (1 - PCV) Pneumococcal Vaccine: 65+ Years (1 - PCV) [facility] Start: 1955 Screening for malign ant neoplasm of colon [facility] Immunizations Immunization Date Immunization Notes Care Provider Jaqui guadalupe 02-14-2021 Pfizer-BioNTech COVID-19 Vacc 30 MCG/0.3ML Intramuscular Suspension Corey Prabhakar MD Work Phone: [place] [address] DO Work Phone: 06-30-2020 Pfizer-BioNTech COVID-19 Vacc 30 MCG/0.3ML Intramuscular Suspension Corey Prabhakar MD Work Phone: [place] [address] DO Work Phone: 06-07-2020 Pfizer-BioNTech COVID-19 Vacc 30 MCG/0.3ML Intramuscular Suspension Corey Prabhakar MD Work Phone: [place] [address] DO Work Phone: 01-07-2012 influenza, seasonal, injectable, preservative free Noel Farnsworth MD Work Phone: [facility] 01-07-2012 influenza virus vaccine, unspecified formulation Noel Farnsworth MD Work Phone: [facility] Payers Date Payer Category Payer Unknown [id number] 2022 Self-pay [id number] 2022 Unknown 2022 Medicare [employer] MEDICARE REPLACEMENT [id number] 2022-Present [address] [address] [place] [address] [id number] 1959 Medicare [id number] 1959 Medicare [id number] 1959 Private Health Insurance [id number] 1959 Unknown [id number] 1959 Unknown [id number] 1954 Unknown [id number] 2.16.840.1.686953.3.579.2. 647 1954 Unknown [id number] 2.16.840.1.148488.3.579.2. 647 1954 Unknown [id number] 2.16.840.1.006531.3.579.2. 593 1954 Unknown [id number] 2.16.840.1.038969.3.579.2. 593 1954 Unknown [id number] 2.16.840.1.556175.3.579.2. 593 1954 Unknown [id number] 2.16.840.1.295558.3.579.2. 593 1954 Unknown [id number] 2.16.840.1.320552.3.579.2. 593 1954 Unknown [id number] 2.16.840.1.647247.3.579.2. 593 1954 Unknown [id number] 2.16.840.1.339845.3.579.2. 593 1954 Unknown [id number] 2.16.840.1.856072.3.579.2. 593 1954 Unknown [id number] 2.16.840.1.601419.3.579.2. 593 1954 Unknown [id number] 2.16.840.1.468087.3.579.2. 593 1954 Unknown [id number] 2.16.840.1.771820.3.579.2. 593 1954 Unknown [id number] 2.16.840.1.648112.3.579.2. 593 1954 Unknown [id number] 2.16.840.1.538474.3.579.2. 593 1954 Unknown [id number] 2.16.840.1.871129.3.579.2. 593 1954 Unknown [id number] 2.16.840.1.129227.3.579.2. 593 1954 Unknown [id number] 2.16.840.1.088289.3.579.2. 593 1954 Unknown [id number] 2.16.840.1.107962.3.579.2. 593 1954 Unknown [id number] 2.16.840.1.953962.3.579.2. 593 1954 Unknown [id number] 2.16.840.1.365708.3.579.2. 593 1954 Unknown [id number] 2.16.840.1.214493.3.579.2. 593 1954 Unknown [id number] 2.16.840.1.879122.3.579.2. 593 1954 Unknown [id number] 2.16.840.1.245977.3.579.2. 356 1954 Unknown [id number] 2.16.840.1.185495.3.579.2. 356 1954 Unknown [id number] 2.16.840.1.169862.3.579.2. 1259 1954 Unknown [id number] 2.16.840.1.020448.3.579.2. 1259 1954 Unknown [id number] 2.16.840.1.842714.3.579.2. 1259 1954 Unknown [id number] 1955 Unknown [id number] 1259 1955 Unknown [id number] 1259 1954 Unknown [id number] 1259 1955 Unknown [id number] 1259 [facility] [id number] Medicare [id number] Unknown [id number] 531 Unknown [id number] 531 Unknown [id number] 531 Social History Date Type Detail Facility Start: 10-25-2022 End: 04-17-2023 Social alcohol use Social alcohol use [facility] Start: 1955 Sex Assigned At Female F [facility] Start: 10-18-2022 Tobacco smoking stat [facility] Never smoked tobacco [facility] Start: 10-18-2022 Tobacco use and exposure Smokeless tobacco non-user [facility] Start: 04-10-2023 End: 04-17-2023 Alcohol intake Lifetime non-drinker (finding) [facility] Start: 10-25-2022 End: 04-17-2023 Tobacco use panel [facility] Start: 08-17-2022 Alcohol Comment caffeine: none [facility] Start: 1955 Sex Assigned At Not on file [facility] History of Present illness Narrative 04-17-2023 Noel Farnsworth MD - 04/17/2023 2:15 PM EST Note Date & Type Note Facility 04-17-2023 History of Presen t illness Narrative Subjective Patient ID: Marla Figueredo is a 67 y.o. female who presents for Sinusitis. Sinus Pain Patient complains of congestion, nasal congestion, post nasal drip, and sinus pressure. Onset of symptoms was 2 weeks ago. Symptoms have been gradually improving since that time. Patient is non-smoker. Sinusitis Associated symptoms include congestion and sinus pressure. Pertinent negatives include no chills, coughing, ear pain, shortness of breath or sore throat. Current Outpatient Medications on File Prior to Visit Medication Sig Dispense Refill Ascorbic Acid (vitamin C) 1000 MG tablet 2 tablets aspirin 81 MG EC tablet Take 1 tablet by mouth in the morning. calcium carbonate 1500 (600 Ca) MG tablet Take 600 mg by mouth in the morning. cholecalciferol (Vitamin D-3) 1.25 MG (56780 UT) capsule Take one capsule daily 100 capsule 3 Copper Gluconate 2 MG tablet Take 1 tablet by mouth in the morning. famotidine (Pepcid) 20 MG tablet TAKE 1 TABLET BY MOUTH EVERY DAY AT BEDTIME NEEDED for 90 ferrous sulfate 325 (65 Fe) MG tablet TAKE 1 TABLET BY MOUTH 3 TIMES A WEEK (SATURDAY, SATURDAY,SATURDAY) 36 tablet 3 fluticasone (Flonase) 50 MCG/ACT nasal spray Administer 1 spray into each nostril in the morning. Shake gently. Before first use, prime pump. After use, clean tip and replace cap.. 16 g 2 loratadine (Claritin) 10 MG tablet 1 (one) time each day at the same time. MAGNESIUM PO Take 250 mg by mouth in the morning. metoprolol tartrate (Lopressor) 25 MG tablet Take 1 tablet (25 mg) by mouth every 12 (twelve) hours 200 tablet 3 metroNIDAZOLE (Flagyl) 500 MG tablet Take 500 mg by mouth in the morning. Dinosaur-3 Fatty Acids (Fish Oil) 1200 MG capsule delayed-release Fish Oil pantoprazole (ProtoNix) 40 MG EC tablet Take 1 tablet (40 mg) by mouth in the morning. 100 tablet 3 potassium chloride CR (Klor-Con M20) 20 MEQ ER tablet TAKE 4 TABLETS BY MOUTH EVERY DAY potassium chloride ER (Micro-K) 10 MEQ ER capsule TAKE 3 CAPSULES BY MOUTH THREE TIMES DAILY WITH FOOD 300 capsule 3 spironolactone (Aldactone) 25 MG tablet Take 25 mg by mouth in the morning and 25 mg before bedtime. torsemide (Demadex) 20 MG tablet TAKE 1 TABLET BY MOUTH EVERY DAY 100 tablet 3 Turmeric 500 MG tablet Take 1 tablet by mouth in the morning. warfarin (Coumadin) 5 MG tablet 1 (one) time each day at the same time. zinc 100 MG tablet 1 (one) time each day at the same time. zinc gluconate 50 MG tablet Take 50 mg by mouth in the morning. [DISCONTINUED] azithromycin (Zithromax) 250 MG tablet Take 2 tablets (500 mg) by mouth Daily for 1 day, THEN 1 tablet (250 mg) Daily for 4 days. 6 tablet 1 No current facility-administered medications on file prior to visit. Allergies Allergen Reactions Chlorzoxazone Hives and Unknown Gabapentin Unknown Social History Tobacco Use Smoking status: Never Smokeless tobacco: Never Substance Use Topics Alcohol use: Never Comment: caffeine: none Drug use: Never Family History Problem Relation Name Age of Onset Diabetes Mother Stroke Mother Heart disease Mother Heart failure Mother Diabetes Father Stroke Father Parkinsonism Father Multiple sclerosis Father Tongue cancer Brother Colon cancer Maternal Cousin Melanoma Neg Hx Past Medical History: Diagnosis Date A-fib (CMS/HCC) Acute sinusitis Anemia DVT (deep venous thrombosis) (CMS/HCC) GERD (gastroesophageal reflux disease) History of medical problems mucoperiosteal thickening maxillary sinuses History of medical problems 12/23/2019 ECHO EF 55-60% Mitral valve prolapse Seasonal allergic rhinitis Thyroid disease (CMS/HCC) Trigger finger, acquired Past Surgical History: Procedure Laterality Date * CT SCAN : SINUS 2011 mucoperiosteal thickeing maxillaty sinues CARDIOVERSION 11/2014 CARPAL TUNNEL RELEASE Bilateral right (2000), left (2002) COLONOSCOPY 2001, 2005, 2013 CT SCAN : HEAD WITH AND WITHOUT CONTRANST 2011 DILATION AND CURETTAGE 2005 EGD 03/30/2020 GASTRIC BYPASS 1998 HERNIA REPAIR 1999 LASIK 1999 eye OTHER SURGICAL HISTORY 1999 tummy tuck THYROIDECTOMY, PARTIAL TRIGGER FINGER RELEASE Bilateral VEIN LIGATION AND STRIPPING Right Visit Vitals BP 128/80 Pulse 82 Temp 98.7 F Ht 5' 4 Wt 241 lb SpO2 98% BMI 41.37 kg/m Smoking Status Never BSA 2.22 m Review of Systems Constitutional: Negative for chills, fatigue and fever. HENT: Positive for congestion, rhinorrhea, sinus pressure and sinus pain. Negative for ear pain and sore throat. Respiratory: Negative for cough, shortness of breath and wheezing. Cardiovascular: Negative for chest pain and palpitations. Gastrointestinal: Negative for abdominal pain, constipation, diarrhea, nausea and vomiting. Objective Physical Exam Constitutional: General: She is not in acute distress. Appearance: Normal appearance. She is well-developed. HENT: Head: Normocephalic and atraumatic. Right Ear: Tympanic membrane and ear canal normal. Left Ear: Tympanic membrane and ear canal normal. Nose: Congestion present. Mouth/Throat: Mouth: Mucous membranes are moist. Pharynx: Posterior oropharyngeal erythema present. Eyes: General: No scleral icterus. Conjunctiva/sclera: Conjunctivae normal. Neck: Thyroid: No thyromegaly. Cardiovascular: Rate and Rhythm: Normal rate and regular rhythm. Heart sounds: Normal heart sounds. No murmur heard. Pulmonary: Effort: Pulmonary effort is normal. No respiratory distress. Breath sounds: Normal breath sounds. No wheezing, rhonchi or rales. Lymphadenopathy: Cervical: No cervical adenopathy. Skin: General: Skin is warm and dry. Neurological: General: No focal deficit present. Mental Status: She is alert and oriented to person, place, and time. Psychiatric: Mood and Affect: Mood normal. Behavior: Behavior normal. Assessment/Plan Diagnoses and all orders for this visit: Acute non-recurrent sinusitis, unspecified location - azithromycin (Zithromax) 250 MG tablet; Take 2 tablets (500 mg) by mouth Daily for 1 day, THEN 1 tablet (250 mg) Daily for 6 days. Follow up if symptoms worsen or fail to improve. documented in this encounter [facility] Clinical Note 11-10-2021 Note Date & Type Note Facility 11-10-2021 Note PROCEDURE: CT CSPINE WO CON COMPARISON: None. HISTORY: UNSPECIFIED INJURY OF HEAD, INITIAL ENCOUNTER TECHNIQUE: Axial, Coronal, and Sagittal CT images obtained without IV contrast. Dose reduction techniques were achieved by using automated exposure control and/or adjustment of mA and/or kV according to patient size and/or use of iterative reconstruction technique. FINDINGS: PARASPINAL AREA: Normal with no visible mass. DISCS: Mild disc space narrowing C5-C6 BONES: Normal alignment of the cervical vertebral bodies with no acute fracture. 2 mm anterolisthesis of C4 on C5. Minimal degenerative changes. OTHER: Negative. IMPRESSION: No acute abnormality Electronically authenticated by: HARPREET QUINTERO Date: 2021-11-10 14:37 [facility] Clinical Note 09-15-2021 Note Date & Type Note Facility 09-15-2021 Note PROCEDURE: XR FOOT L T MIN 3 VIEWS HISTORY: Pain in left foot ; increasing posterior left foot pain, unable to bear weight COMPARISON: XR foot left 08/09/2021 FINDINGS: BONES:Mild bunion formation and mild degenerative change of the tarsal-metatarsal joints. Mild/moderate flattening of the plantar arch. Small calcaneal plantar spur. SOFT TISSUES:No visible soft tissue swelling. EFFUSION:None visible. OTHER: Negative. IMPRESSION: 1. No appreciable acute abnormality. 2. Stable bunion formation and mild midfoot degenerative changes. Electronically authenticated by: BETY GIORADNO Date: 2021-09-15 16:00 [facility] Evaluation note Note Date & Type Note Facility Evaluation note No assessment information availa [facility] Work Phone: Evaluation note Note Date & Type Note Facility Evaluation note Diagnosis Acute non-recurrent sinusitis, unspecified location documented in this encounter [facility] Summary Purpose Family History Unknown Family Member Name Dates Details Family history of cerebrovas cular accident (CVA): Mother, Father(V17.1, Z82.3) Status:Active FH: Parkinson's disease: Fat her(V17.2, Z82.0) Status:Active Family history of myocardial infarction: Brother(V17.3, Z82.49) Status:Active Family history of throat can cer: Brother(V16.0, Z80.0) Status:Active Unknown Family Member Name Dates Details Family history of cerebrovas cular accident (CVA): Mother, Father(V17.1, Z82.3) Status:Active FH: Parkinson's disease: Fat her(V17.2, Z82.0) Status:Active Family history of myocardial infarction: Brother(V17.3, Z82.49) Status:Active Family history of throat can cer: Brother(V16.0, Z80.0) Status:Active Unknown Family Member Name Dates Details Family history of cerebrovas cular accident (CVA): Mother, Father(V17.1, Z82.3) Status:Active FH: Parkinson's disease: Fat her(V17.2, Z82.0) Status:Active Family history of myocardial infarction: Brother(V17.3, Z82.49) Status:Active Family history of throat can cer: Brother(V16.0, Z80.0) Status:Active Unknown Family Member Name Dates Details Family history of throat can cer: Brother(V16.0, Z80.0) Status:Active Family history of myocardial infarction: Brother(V17.3, Z82.49) Status:Active FH: Parkinson's disease: Fat her(V17.2, Z82.0) Status:Active Family history of cerebrovas cular accident (CVA): Mother, Father(V17.1, Z82.3) Status:Active Unknown Family Member Name Dates Details Family history of cerebrovas cular accident (CVA): Mother, Father(V17.1, Z82.3) Status:Active FH: Parkinson's disease: Fat her(V17.2, Z82.0) Status:Active Family history of myocardial infarction: Brother(V17.3, Z82.49) Status:Active Family history of throat can cer: Brother(V16.0, Z80.0) Status:Active Unknown Family Member Name Dates Details Family history of throat can cer: Brother(V16.0, Z80.0) Status:Active Family history of myocardial infarction: Brother(V17.3, Z82.49) Status:Active FH: Parkinson's disease: Fat her(V17.2, Z82.0) Status:Active Family history of cerebrovas cular accident (CVA): Mother, Father(V17.1, Z82.3) Status:Active Unknown Family Member Name Dates Details Family history of cerebrovas cular accident (CVA): Mother, Father(V17.1, Z82.3) Status:Active FH: Parkinson's disease: Fat her(V17.2, Z82.0) Status:Active Family history of myocardial infarction: Brother(V17.3, Z82.49) Status:Active Family history of throat can cer: Brother(V16.0, Z80.0) Status:Active Unknown Family Member Name Dates Details Family history of cerebrovas cular accident (CVA): Mother, Father(V17.1, Z82.3) Status:Active FH: Parkinson's disease: Fat her(V17.2, Z82.0) Status:Active Family history of myocardial infarction: Brother(V17.3, Z82.49) Status:Active Family history of throat can cer: Brother(V16.0, Z80.0) Status:Active Advance Directives Advance Directive Response Recorded Date/ Time Advance Directives No June 10 12:52pm Chief Complaint MARLA FIGUEREDO is being seen for a 6 month follow-up of.* MARLA FIGUEREDO is being seen for a 6 month follow-up of. * Patient is in the office for follow-up for permanent atrial fibrillation managed with rate control and Coumadin therapy with no events noted since her last visit back in October 2020. Her most recent labs from November 2020 were reviewed with the patient with no concerns noted. She denies any TIAs and no bleeding problems. She has chronic lower extremity edema for which Demadex has been used and working. She remains significantly obese with no change in her weight from last visit. Her examination is remarkable for irregular rhythm and lower extremity edema which is mild. * Assessment/recommendations: * 1 permanent atrial fibrillation that is asymptomatic. Heart rate is controlled on metoprolol 25 mg twice daily and on chronic anticoagulation with Coumadin managed by the Coumadin clinic at [facility]. We agreed to pursue rate control versus rhythm control in this case through mutual agreement with the patient * 2 essential hypertension under control on metoprolol. * 3 lower extremity edema on Demadex, * 4 morbid obesity status post bariatric surgery but remains morbidly obese. Lifestyle modifications to lose weight were discussed with the patient. * 5 high risk medication with anticoagulation with no bleeding problems. * 6 nuclear stress test in [place] several years ago was normal, no need to repeat. * 7 sleep apnea intolerant to CPAP machine. * MARLA FIGUEREDO is being seen for a 6 month follow-up of. * Patient is in the office for follow-up for the problems noted below. She continues to have chronic atrial fibrillation managed with rate control and [facility] She does have chronic lower extremity edema with recurrent cellulitis. This is mostly caused by her morbid obesity and venous insufficiency. She is currently on Demadex and her PCPyesterday placed her on metolazone 5 mg daily for 5 days. She was having cellulitis in the right lower extremity and was given antibiotic therapy. She has no palpitations or dyspnea. She has sleep apnea but has not been able to tolerate CPAP machine. Her weight has not changed from last visit. She has irregular rhythm and 2+ bilateral lower extremity edema and clear lungs. She has no tachycardia. * Assessment/recommendations: * 1 permanent atrial fibrillation that is asymptomatic. Heart rate is controlled on metoprolol 25 mg twice daily and on chronic anticoagulation with Coumadin managed by the [facility]mad[facility] clinic at [facility]. We agreed to pursue rate control versus rhythm control in this case through mutual agreement with the patient * 2 essential hypertension under control on metoprolol. * 3 lower extremity edema with right lower extremity cellulitis on Demadex, PCP added metolazone 5 doses yesterday. We will check her basic metabolic profile and the response next week. If it works we will maintain metolazone 5 mg every other day and monitor renal function closely. * 4 morbid obesity status post bariatric surgery but remains morbidly obese. Lifestyle modifications to lose weight were discussed with the patient. * 5 high risk medication with anticoagulation with no bleeding problems. * 6 nuclear stress test in [place] several years ago was normal, no need to repeat. * 7 sleep apnea intolerant to CPAP machine. * MARLA FIGUEREDO is being seen for a 6 month follow-up of. * Patient is in the office for follow-up for the problems noted below. Since her last visit several months ago she has had no cardiac events of significance. Her edema in the lower extremities has improved and she no longer goes to the wound clinic. 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 She is on Coumadin therapy for permanent atrial fibrillation managed by the Coumadin clinic at [facility]. Her weight is couple pounds below her previous visit.She has no orthopnea or PND. She is intolerant to CPAP machine and was again reminded to try harderto lose weight to minimize sleep apnea. Apart from the irregular rhythm and the lower extremity edema physical examination was unremarkable. She nevertheless has class II obesity. * Assessment/recommendations: * 1 permanent atrial fibrillation that is asymptomatic. Heart rate is controlled on metoprolol 25 mg twice daily and on chronic anticoagulation with Coumadin managed by the [facility]madin clinic at [facility]. * 2 essential hypertension under control on metoprolol. * 3 history of severe lower extremity edema improved on medical therapy. We will continue triple diuretics and follow renal function closely.. * 4 morbid obesity status post bariatric surgery but remains in class II obesity, more aggressive weight loss was recommended * 5 high risk medication with anticoagulation with no bleeding problems. * 6 nuclear stress test in [place] several years ago was normal, no need to repeat. * 7 sleep apnea intolerant to CPAP machine. More weight loss was recommended * 8 history of hypokalemia due to aggressive diuresis. Basic metabolic profile will be done every 3 months * MARLA FIGUEREDO is being seen for a 6 month follow-up of. * Patient is in the office for follow-up for the problems noted below. Since her last visit several months ago she has had no cardiac events of significance. Her edema in the lower extremities has improved and she no longer goes to the wound clinic. 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 She is on Coumadin therapy for permanent atrial fibrillation managed by the [facility]madin clinic at [facility]. Her weight is couple pounds below her previous visit.She has no orthopnea or PND. She is intolerant to CPAP machine and was again reminded to try harderto lose weight to minimize sleep apnea. Apart from the irregular rhythm and the lower extremity edema physical examination was unremarkable. She nevertheless has class II obesity. * Assessment/recommendations: * 1 permanent atrial fibrillation that is asymptomatic. Heart rate is controlled on metoprolol 25 mg twice daily and on chronic anticoagulation with Coumadin managed by the Coumadin clinic at [facility]. * 2 essential hypertension under control on metoprolol. * 3 history of severe lower extremity edema improved on medical therapy. We will continue triple diuretics and follow renal function closely.. * 4 morbid obesity status post bariatric surgery but remains in class II obesity, more aggressive weight loss was recommended * 5 high risk medication with anticoagulation with no bleeding problems. * 6 nuclear stress test in [place] several years ago was normal, no need to repeat. * 7 sleep apnea intolerant to CPAP machine. More weight loss was recommended * 8 history of hypokalemia due to aggressive diuresis. Basic metabolic profile will be done every 3 months Chief Complaint and Reason for Visit Chief Complaint Lymphedema Screening Chief Complaint Screening Chief Complaint Screening e28.39 e28.39 Additional Source Comments INFORMATION SOURCE (unrecogn ized section and content) DATE CREATED AUTHOR 07/29/2018 [facility] DATE CREATED AUTHOR AUTHOR'S ORGANIZ ATION 08/17/2022 [facility] DATE CREATED AUTHOR AUTHOR'S ORGANIZ ATION 10/24/2022 [employer] DATE CREATED AUTHOR AUTHOR'S ORGANIZ ATION 12/23/2022 [facility] DATE CREATED AUTHOR AUTHOR'S ORGANIZ ATION 04/18/2023 [facility] EPIC DATE CREATED AUTHOR AUTHOR'S ORGANIZ ATION 04/19/2023 [facility] Care Teams (unrecognized sec tion and content) Team Status: Inactive Member Role Status Dates Noel Farnsworth II MD Primary Care Provider Active Sherlyn Rucker DO Referring Provider Active GLEN Rivera Attending Provider Active Team Status: Active Member Role Status Dates Noel Farnsworth II MD Primary Care Provider Active Marla Strickland PA-C Attending Provider Active Team Status: Active Member Role Status Dates Noel Farnsworth II MD Primary Care Provider Active Team Status: Inactive Member Role Status Dates Noel Farnsworth II MD Primary Care Provider Active Marla Strickland PA-C Attending Provider Active Team Status: Inactive Member Role Status Dates Noel Farnsworth II MD Primary Care Provider Active Referral Self Attending Provider Active Team Status: Inactive Member Role Status Dates Noel Farnsworth II MD Primary Care Provider, Attending Provider Active Plush Dresser Relationship Specialty Start Date End Date Noel Farnsworth MD [address] [facility] [address] [place] [address] PCP - General Internal Medicine 08/14/22 Plush Dresser Relationship Specialty Start Date End Date Noel Farnsworth MD [address] [facility] [address] [place] [address] PCP - General Internal Medicine 08/14/22 Goals (unrecognized section and content) Goals may be documented in a n alternate sectionGoals may be documented in an alternate sectionGoals may be documented in an alternate sectionGoals may be documented in an alternate sectionGoals may be documented in an alternate section Reason for Visit (unrecogniz ed section and content) Reason Comments Sinusitis FOR RECORDS PERTAINING TO PATIENTS WHO ARE OR HAVE BEEN ENROLLED IN A CHEMICAL DEPENDENCY/SUBSTANCEABUSE PROGRAM, SOME INFORMATION MAY BE OMITTED. This clinical summary was aggregated from multiple sources. Caution should be exercised in using it in the provision of clinical care. This summary normalizes information from multiple sources, and as a consequence, information in this document may materially change the coding, format and clinical context of patient data. In addition, data may be omitted in some cases. CLINICAL DECISIONS SHOULD BE BASED ON THE PRIMARY CLINICAL RECORDS. [facility]. provides no warranty or guarantee of the accuracy or completeness of information in this document.
[2023-05-06 09:17] LABS: Anion Gap 11.2; BUN Creatinine Ratio 25.5; Calcium 9.8 mg/dL (8.5-10.1); Carbon Dioxide 26.9 mmol/L (21.0-32.0); Chloride 107 mmol/L (98-107); Estimated GFR (African America >60 (>=60); Estimated GFR (Non-African Ame 59 (>=60); Glucose 89 mg/dL (74-106); Potassium 4.1 mmol/L (3.5-5.1); Sodium 141 mmol/L (136-145)
[2023-05-06 09:32] LABS: Basophils Percent Auto 0.7 % (0.2-2.0); Eosinophils Absolute Auto 0.1 10^3/uL (0.0-0.7); Eosinophils Percent Auto 1.2 % (0.9-7.0); Hematocrit 39.8 % (36.0-48.0); Hemoglobin 11.9 g/dL (12.0-16.0); Immature Granulocytes Abs Auto 0.03 10^3/uL (0.00-0.03); Immature Granulocytes Pct Auto 0.5 % (0.0-0.5); Lymphocytes Absolute Auto 1.4 10^3/uL (1.2-3.8); Lymphocytes Percent Auto 23.7 % (20.5-60.0); Mean Corpuscular HGB Conc 29.9 g/dL (29.9-35.2); Mean Corpuscular Hemoglobin 28.4 pg (26.7-34.0); Mean Platelet Volume 10.4 fL (9.5-13.5); Monocytes Absolute Auto 0.4 10^3/uL (0.3-0.8); Monocytes Percent Auto 6.7 % (1.7-12.0); Neutrophils Percent Auto 67.2 % (43.0-75.0); Platelet Count 140 10^3/uL (150-450); Red Blood Count 4.19 10^6/uL (4.20-5.40); Red Cell Distribution Width 13.9 % (11.0-15.0)
== END 2023-05-06 08:44 | disposition home or self-care (01) ==
LOC: LAB 08:45
PROVIDERS: PCP Internal Medicine; Visit Provider Internal Medicine Cardiovascular Disease
DX: I48.21 Permanent atrial fibrillation (principal); I10 Essential (primary) hypertension; Z79.899 Other long term (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
CPT/HCPCS: 36415; 80048; 85025

== ENCOUNTER 2023-05-10 01:01 | Outpatient (RCR) | payer OTHER, MEDICARE, SELFPAY | END 2023-06-07 12:58 | disposition home or self-care (01) | LOC: MM 01:01 | PROVIDERS: PCP Internal Medicine; Visit Provider Internal Medicine | DX: Z51.81 Encounter for therapeutic drug level monitoring (principal); Z79.01 Long term (current) use of anticoagulants; I48.20 Chronic atrial fibrillation, unspecified | CPT/HCPCS: 85610; G0463 ==

== ENCOUNTER 2023-06-05 07:36 | Outpatient (OUT) | payer OTHER, MEDICARE, SELFPAY ==
--- OUTSIDE RECORDS SUMMARY | 2023-06-05 07:39 | XMS_ITS | CCD ---
Author Organization [facility] Care Team Providers Care Theater Usher Name Role Phone STEPHANIE CAVAZOS AM Admitting Unavailable STEPHANIE CAVAZOS AM Attending Unavailable NOEL FARNSWORTH Referring Unavailable NOEL FARNSWORTH Primary Care Unavailable PHYSICIAN, DEFAULT Admitting Unavailable PHYSICIAN, DEFAULT Attending Unavailable NOEL FARNSWORTH Primary Care Unavailable Unavailable Unavailable Unavailable Unavailable SALMA Farnsworth Primary Care Provider TANIA Strickland Attending Provider DO Sherlyn Rucker Referring Provider GLEN Strickland Attending Provider DR NOEL FARNSWORTH Primary Care Unavailable MISC, DR CORTEZ Attending Unavailable MISC, DR CORTEZ Admitting Unavailable MISC, DR CORTEZ Consulting Unavailable FAWWACintia, KOCH H Admitting Unavailable SHAIKH MURILLO H Attending Unavailable DR NOEL FARNSWORTH Primary Care Unavailable DR NOEL FARNSWORTH Primary Care Unavailable ASHLIE, DR NARAYAN Jeter Admitting Unavailabl e ASHLIE, DR NARAYAN Jeter Attending Unavailabl e LEON, DR HARPREET Conner Consulting Unavailable CARYN .KATIE Consulting Unavailabl e DR NOEL FARNSWORTH Primary Care Unavailable PRABHAKAR, DR COREY Batista Admitting Unavailable PRABHAKAR, DR COREY Batista Consulting Unavailable PRABHAKAR, DR COREY Batista Attending Unavailable DR NOEL FARNSWORTH Primary Care Unavailable PRABHAKAR, DR COREY Batista Consulting Unavailable PRABHAKAR, DR COREY Batista Attending Unavailable PRABHAKAR, DR COREY Batista Admitting Unavailable FAWWACintia, KOCH H Admitting Unavailable LIDIA, KOCH H Attending Unavailable DR NOEL FARNSWORTH Primary Care Unavailable FAWWAD, KOCH H Admitting Unavailable FAWLENIN, KOCH H Attending Unavailable DR NOEL FARNSWORTH Primary Care Unavailable ERWIN, AUDELIA Attending Unavailable ERWIN, AUDELIA Admitting Unavailable ERWIN, AUDELIA Consulting Unavailable FARNSWORTH, DR PETERSON Primary Care [...] Care Unavailable LALOR, DEEPIKA Attending Unavailable LALOR, DEEPIKA Admitting Unavailable LALOR, DEEPIKA Consulting Unavailable FARNSWORTH, DR PETERSON Primary Care Unavailable MISC, DR CORTEZ Attending Unavailable MISC, DR CORTEZ Admitting Unavailable MISC, DR CORTEZ Consulting Unavailable FARNSWORTH, DR PETERSON Primary Care Unavailable FARNSWORTH, DR PETERSON Primary Care Unavailable HIGHLANDER, DEEPIKA Chamberlain Attending Unavailable HIGHLANDER, DEEPIKA Chamberlain Admitting Unavailable ZIEBER, DR BETY Pompa Consulting Unavailable HIGHLANDER, DEEPIKA Chamberlain Consulting Unavailable LALOR, DEEPIKA Attending Unavailable LALOR, PETER Admitting Unavailable LALOR, DEEPIKA Consulting Unavailable FARNSWORTH, DR PETERSON Primary Care Unavailable FARNSWORTH, DR PETERSON Primary Care Unavailable PRABHAKAR, DR COREY Batista Consulting Unavailable PRABHAKAR, DR COREY Batista Attending Unavailable PRABHAKAR, DR COREY Batista Admitting Unavailable FAWWAD, KOCH H Attending Unavailable FARNSWORTH, DR PETERSON Primary Care Unavailable FAWWAD, KOCH H Admitting Unavailable Noel Farnsworth Unavailable Prabhakar, Dr. Corey Borrero Attending Soniya vailable Prabhakar, Dr. Corey Borrero Referring Soniya vailable Farnsworth II, Dr. Noel Payne Primary Care Soniya vailable Prabhakar, Dr. Corey Borrero Attending Soniya vailable Prabhakar, Dr. Corey Borrero Referring Soniya vailable Farnsworth II, Dr. Noel Payne Primary Care Soniya vailable Javad, II Noel Primary Care Provider Self, Referral Attending Provider Unavailable SALMA Farnsworth Attending Provider [phone] HARPREET BROOKE Attending Unavailable LAZARO BORRERO Referring Unavailable NOEL FARNSWORTH Attending Unavailable NOEL FARNSWORTH Attending Unavailable EDWARDO, HARPREET Snow Attending Unavailable BROWN, LAZARO A Referring Unavailable EDWARDO, HARPREET Snow Attending Unavailable BROWN, LAZARO A Referring Unavailable BROWN, LAZARO A Attending Unavailable SHERLYN RUCKER Attending Unavailable SHERLYN RUCKER Referring Unavailable HARPREET BROOKE Attending Unavailable LAZARO BORRERO Referring Unavailable Noel Farnsworth Admitting Unavailable Noel Farnsworth Primary Care Unavailable Noel Farnsworth Attending Unavailable Noel Farnsworth Primary Care Unavailable Noel Farnsworth Attending Unavailable Noel Farnsworth Admitting Unavailable Noel Farnsworth Primary Care Unavailable Self, Referral Admitting Unavailable Self, Referral Attending Unavailable Noel Farnsworth MD Primary Care Provider Noel Farnsworth MD Primary Care Provider Allergies Allergy Classification Reported Allergen(s) Allergy Type Date of Onset Reaction(s) Facility (1 source) PARFON-FORTE; Translations: [PARFON-FORTE] Propensity to adverse reactions (disorder) 9 [facility] (11 sources) Chlorzoxazone; Translations: [Parafon Forte DSC TABS] Drug Allergy 3 [facility] (1 source) Parafon Forte DSC Drug allergy (disorder) 5 [facility] (2 sources) Chlorzoxazone Drug Allergy 8 Hives, Unknown [facility] (2 sources) gabapentin Drug Allergy 1 Unknown [facility] Medications Current Medications Medication Drug Class(es) Dates Sig (Normalized) Sig (Original) ascorbic acid 1000 mg oral tablet (3 sources) Vitamin C take 2 tablets by mouth once daily ascorbic acid (Vitamin C) 1,000 mg tablet Take 2 tablets (2,000 mg) by mouth once daily. 0 Active aspirin 81 mg delayed release [...] days. 8 tablet 0 04/17/2023 04/24/2023 Active Bacillus coagulans / Inulin (1 source) take 1 tablet by mouth once daily BACILLUS COAGULANS-INULIN ORAL Take 1 tablet by mouth once daily. 0 Active calcium carbonate 1500 mg oral tablet (13 sources) take 1 tablet by mouth once daily calcium carbonate 600 mg calcium (1,500 mg) tablet Take 1 tablet (1,500 mg) by mouth once daily. 0 Active take 1 tablet by mouth in the mo rning calcium carbonate 1500 (600 Ca) MG tablet Take 600 mg by mouth in the morning. 0 Active cholecalciferol 1.25 mg oral capsule (3 sources) Vitamin D Start: 02-27-2023 cholecalcifero l (Vitamin D-3) 1.25 MG (21649 UT) capsule Indications: Vitamin D deficiency Take one capsule daily 100 capsule 3 02/27/2023 Active cholecalciferol (Vitamin D-3) 25 MCG (1000 UT) tablet Take 80 tablets (80,000 Units) by mouth once daily. 0 Active copper gluconate 2 mg oral tablet (13 sources) take 1 tablet by mouth once daily copper gluconate 2 mg tablet Take 1 tablet by mouth once daily. 0 Active cyanocobalamin, vitamin B-12, (VITAMIN B-12 ORAL) (1 source) take 1 tablet by mouth once daily cyanocobalamin, vitamin B-12, (VITAMIN B-12 ORAL) Take 1 tablet by mouth once daily. 0 Active docosahexaenoic acid/epa (FISH OIL ORAL) (1 source) take 1400 mg by mouth once daily docosahexaenoic acid/epa (FISH OIL ORAL) Take 1,400 mg by mouth once daily. 0 Active famotidine 20 mg oral tablet (13 sources) Histamine-2 Receptor Antagonist Start: 05-04-19 21 famotidine (Pepcid) 20 mg tablet Take 1 tablet (20 mg) by mouth as needed at bedtime. 0 05/04/2020 Active ferrous sulfate 325 mg oral tablet (13 sources) Start: 09-15-19 23 take 1 tablet by mouth three times weekly ferrous sulfate 325 (65 Fe) MG tablet Indications: Bariatric surgery status TAKE 1 TABLET BY MOUTH 3 TIMES A WEEK (SATURDAY, SATURDAY,SATURDAY) 36 tablet 3 09/14/2022 Active Start: 02-09-2020 take 1 tablet by toni th twice daily ferrous sulfate 325 (65 Fe) MG tablet Take 1 tablet by mouth 2 times a day. 0 02/09/2020 Active fluticasone propionate 0.05 mg/actuat metered dose [...] 12/05/2022 Active loratadine 10 mg oral tablet (13 sources) take 1 tablet by mouth every twenty-four hours as needed loratadine (Claritin) 10 mg tablet Take 1 tablet (10 mg) by mouth once daily as needed for allergies. 0 Active Magnesium (6 sources) take 1 tablet by mouth once daily magnesium 250 mg tablet Take 1 tablet (250 mg) by mouth once daily. 0 Active take 250 mg by mouth in the morn ing MAGNESIUM PO Take 250 mg by mouth in the morning. 0 Active take 1 tablet by mouth once key y Magnesium 250 MG Oral Tablet TAKE 1 TABLET DAILY. Quantity: 0 Refills: 0 Ordered: 23-Oct-2022 DO Active metoprolol tartrate 25 mg oral tablet (14 sources) beta-Adrenergic Papo Start: 04-03-2023 End: 05-12-2024 take 1 tablet by mouth twice daily metoprolol tartrate (Lopressor) 25 mg tablet Indications: Essential hypertension Take 1 tablet (25 mg) by mouth 2 times a day. 180 tablet 3 05/13/2023 05/12/2024 Active Start: 02-27-2023 take 1 tablet by mouth once me toprolol tartrate (Lopressor) 25 MG tablet Indications: Essential [...] mouth in the morning. 0 02/07/2023 Active multivitamin capsule (1 source) take 1 capsule by mouth once daily multivitamin capsule Take 1 capsule by mouth once daily. 0 Active [place]-3 Fatty Acids (Fish Oil) 1200 MG capsule delayed-release (2 sources) [place]-3 Fatty Ac ids (Fish Oil) 1200 MG capsule delayed-release Fish Oil 0 Active pantoprazole 40 mg delayed release oral tablet (13 sources) Proton Pump Inhibitor Start: 02-09-2020 take 1 tablet by mouth in the morning pantoprazole (ProtoNix) 40 MG EC tablet Indications: Gastroesophageal reflux disease without esophagitis Take 1 tablet (40 mg) by mouth in the morning. 100 tablet 3 02/27/2023 Active microencapsulated potassium chloride 20 meq extended release oral tablet (15 sources) Start: 05-03-2023 End: 05-02-2024 take 1 tablet by mouth four times daily potassium chloride CR 20 mEq ER tablet Indications: Hypokalemia Take 1 tablet (20 mEq) by mouth 4 times a day. 120 tablet 11 05/03/2023 05/02/2024 Active Start: 03-20-2023 potassium chlo ride ER (Micro-K) [...] Start: 11-06-2021 take 3 tablets by mo wyh three times daily Potassium Chloride ER 10 MEQ Oral Tablet Extended Release TAKE 3 TABLETS BY MOUTH 3 TIMES A DAY Quantity: 810 Refills: 3 Ordered: 28-Nov-2021 Corey Prabhakar MD Start : 06-Nov-2021 Active Start: 02-09-2020 take 2 capsules by m outh three times daily Potassium Chloride ER 10 MEQ Oral Capsule Extended Release TAKE 2 CAPSULE 3 times daily Quantity: 0 Refills: 0 Ordered: 30-Apr-2020 DO Start : 09-Feb-2020 Active spironolactone 50 mg oral tablet (9 sources) Aldosterone Antagonist Start: 04-03-2023 End: 05-12-2024 take 1 tablet by mouth once daily spironolactone (Aldactone) 50 mg tablet Indications: Essential hypertension , Hypokalemia Take 1 tablet (50 mg) by mouth once daily. 90 tablet 3 05/13/2023 05/12/2024 Active Start: 11-06-2021 take 1 tablet by toni once daily Spironolactone 25 MG Oral Tablet TAKE 1 TABLET DAILY. Quantity: 90 Refills: 3 Ordered: 23-Oct-2022 Corey Prabhakar MD Start : 06-Nov-2021 Active new start torsemide 20 mg oral tablet (14 sources) Loop Diuretic Start: 10-26-2020 End: 05-12-2024 take 1 tablet by mouth once daily torsemide (Demadex) 20 mg tablet Indications: Essential hypertension Take 1 tablet (20 mg) by mouth once daily. 90 tablet 3 05/13/2023 05/12/2024 Active turmeric extract 500 mg oral capsule (5 sources) take 1 tablet by mouth in the morning Turmeric 500 MG tablet Take 1 tablet by mouth in the morning. 0 Active take 1 tablet by mouth once key y Turmeric 500 MG Oral Tablet one daily Quantity: 0 Refills: 0 Ordered: 09-May-2022 DO Active turmeric root extract 500 mg tablet (1 source) take 1 tablet by mouth once daily turmeric root extract 500 mg tablet Take 1 tablet by mouth once daily. 0 Active warfarin sodium 2.5 mg oral tablet (13 sources) Vitamin K Antagonist Start: 08-24-2020 warfarin (Coumadin) 2.5 mg tablet Take by mouth. As directed by [facility] 0 08/24/2020 Active Start: 08-24-2020 Warfarin Sodiu m 2.5 MG Oral Tablet Agnes manages warfarin at [facility] Quantity: 0 Refills: 0 Ordered: 23-Apr-2021 DO Start : 24-Aug-2020 Active warfarin (Coumad in) 5 MG tablet 1 (one) time each day at the same time. 0 Active Zinc (2 sources) zinc 100 MG tabl et 1 (one) time each day at the same time. 0 Active zinc gluconate 50 mg oral tablet (13 sources) take 1 tablet by toni th once daily zinc gluconate 50 mg tablet Take 1 tablet (50 mg) by mouth once daily. 0 Active Completed/Discontinued Medications Medication Drug Class(es) Dates Sig (Normalized) Sig (Original) cephalexin 500 mg oral capsule (3 sources) Cephalosporin Antibacterial take 1 capsule by mouth every eight hours Cephalexin 500 MG Oral Capsule TAKE 1 CAPSULE EVERY 8 HOURS UNTIL GONE. Quantity: 0 Refills: 0 Ordered: 01-Nov-2021 DO Active Fish Oil CAPS (10 sources) Fish Oil CAPS take 1400mg once daily Quantity: 0 Refills: 0 [...] Active Probiotic CAPS (10 sources) Probiotic CAPS Take as directed Quantity: 0 Refills: 0 Ordered: 26-Apr-2021 DO Active Vitamin B 12 TABS (10 sources) Vitamin [...] 0 Refills: 0 Ordered: 26-Apr-2021 DO Active Problems Active Problems Problem Classification Problem Date Documented Date Episodic/Chronic Asthma (2 sources) Asthmatic bronchitis; Translations: [Unspecified asthma, uncomplicated] Onset: 8 12-05-2022 Chronic Cardiac dysrhythmias (16 sources) Unspecified atrial fibrillation; Translations: [Permanent atrial [...] esophagitis] Onset: 1 10-25-2022 Chronic Essential hypertension (14 sources) Essential hypertension; Translations: [Unspecified essential hypertension] Onset: 3 12-05-2022 Chronic Fluid and electrolyte disorders (14 sources) Hypokalemia; Translations: [Hypopotassemia] Onset: 2 Episodic Genitourinary symptoms and ill-defined conditions (2 sources) [...] Onset: 8 Episodic Other aftercare (2 sources) group home (current) use of anticoagulants; Translations: [USP (CURRENT) USE OF ANTICOAGULANTS] Onset: 8 Episodic Other aftercare (4 sources) Taking high risk medication; Translations: [Other senior care (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] Onset: 3 01-11-2023 Episodic Other diseases of veins and lymphatics [...] excess calories] Onset: 3 12-05-2022 Chronic Other nutritional; endocrine; and metabolic disorders (2 sources) Body mass index 30+ - obesity; Translations: [Body mass index (BMI) 39.0-39.9, adult] Onset: 4 05-13-2023 Chronic Other upper respiratory disease (2 sources) Seasonal allergy; Translations: [Other seasonal allergic rhinitis] Onset: 1 12-05-2022 Chronic Other upper respiratory infections (2 sources) Chronic sinusitis; Translations: [Other chronic sinusitis] Onset: 3 12-05-2022 Chronic Other upper respiratory infections (1 source) Acute sinusitis; Translations: [Acute sinusitis, unspecified] 04-17-2023 Episodic Residual codes; unclassified (11 sources) Sleep apnea; Translations: [Unspecified sleep apnea] Onset: 3 12-27-2022 Chronic Residual codes; unclassified (3 sources) Obstructive sleep apnea syndrome; Translations: [Obstructive sleep apnea (adult) (pediatric)] Onset: 6 12-05-2022 Chronic Screening and history of mental health and substance abuse codes (12 sources) Ex-smoker; Translations: [Personal history of tobacco use] Onset: 4 05-13-2023 Episodic Thyroid disorders (2 sources) Non-toxic multinodular [...] STRK UNS OBJ INT] Onset: 2 Episodic Malaise and fatigue (7 sources) Other fatigue; Translations: [Fatigue] Onset: 6 Episodic Nutritional deficiencies (2 sources) Vitamin B-complex deficiency ; Translations: [Vitamin B deficiency, unspecified] Onset: 5 12-05-2022 Episodic Other aftercare (16 sources) Drug therapy finding; Translations: [Long-term (current) use of other medications] Onset: 3 01-11-2023 Episodic Other aftercare (1 source) 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; Translations: [OTH USP CURRENT DRUG THERAPY] Onset: 2 Episodic Other aftercare (1 source) group home (current) use of aspirin; Translations: [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] Onset: 2 Episodic Other bone disease and musculoskeletal deformities [...] tissue] Resolved: 2 Episodic Residual codes; unclassified (13 sources) Bilateral lower limb edema; Translations: [Edema] Onset: 3 01-11-2023 Episodic Residual codes; unclassified (1 source) Localized edema; Translations: [LOCALIZED EDEMA] Onset: 2 Episodic Residual codes; unclassified (2 sources) Edema of lower extremity; Translations: [Localized edema] Onset: 3 12-05-2022 Episodic Skin and subcutaneous tissue infections (11 sources) Cellulitis; Translations: [Cellulitis and abscess of unspecified sites] Onset: 2 01-11-2023 Episodic Spondylosis; intervertebral disc disorders; other back problems (9 sources) Dorsalgia, unspecified; Translations: [Right cervical root neuropathy] Onset: Episodic Thyroid disorders (2 sources) Disorder of thyroid gland; Translations: [Disorder of thyroid, unspecified] Onset: 3 10-25-2022 Episodic Unclassified (1 source) Onset: 4 05-13-2023 Results Test Name Value Interpretation Reference Range Facil ity MM screening mammo BI w/CADo n 02-20-2023 MM screening mammo BI w/CAD [facility] [place] [address] [place] [address] Mammography Report Signed Patient: Marla Figueredo MR#: [id number] 6 : 1955 Acct:[id number] Age/Sex: 67 / F ADM Date: 02/20/23 Loc: [place] Room: Type: [facility] Attending Dr: Referral Self Copies to: Noel [...] Peter Sanchez M.D.02/20/2023 3:18 PM Dictation Location: [facility] Transcribed By: AJ 02/20/231517 Dictated By: Peter Sanchez II, MD 02/20/231513 Signed By: 02/20/231517 [facility] Office Visit (Cardiology)on 10-23-2022 Follow-up [...] Metabolic Panel; Status:Active - Retrospective Authorization; Requested for:[id number]; Complete Blood Count; Status:Active - Retrospective Authorization; Requested for:[id number]; Class 2 severe obesity with serious comorbidity and body mass index (BMI) of 39.0 to 39.9 in adult Healthy Weight Tips; Status:Complete - Retrospective Authorization; Done: [id number] Some eating tips that can help you lose weight.; Status:Complete - Retrospective Authorization; Done: [id number] Edema of both legs Renew: Torsemide 20 [...] Metabolic Panel; Status:Active - Retrospective Authorization; Requested for:18Mar2023; Complete Blood Count; Status:Active - Retrospective Authorization; Requested for:18Mar2023; Essential hypertension, Permanent atrial fibrillation Renew: Metoprolol Tartrate 25 MG Oral Tablet; TAKE 1 TABLET TWICE DAILY SocHx: Former smoker Tobacco Use Screening; Status:Complete; Done: [id number] Patient Instructions Please bring all medicines, vitamins, [...] fibrillation managed by the Coumadin clinic at [facility]. Her weight is couple pounds below [...] Coumadin managed by the Coumadin clinic at [facility]. 2?essential hypertension under control on metoprolol. 3? history of severe lower extremity edema improved on medical therapy. We will continue triple diuretics and follow renal function closely.. 4?morbid obesity status post bariatric surgery but remains in class II obesity, more aggressive weight loss was recommended 5?high risk medication with anticoagulation with no bleeding problems. 6?nuclear stress test in [place] several years ago was normal, no need [...] NEEDED. Magnesium (more content not included)... Normal [employer] Tobacco Screening.on 023 Fall risk assessment a) No falls within the last year [facility] [employer] 250 DO Work Phone: Tobacco use status CP b) No [facility] [employer] 250 DO Work Phone: CBC AUTO DIFFon 08-02-2022 BASO # 0.0 103/ul Normal 0.0-0.1 [facility] Comment on above: Performed By: #### P T, PTT #### [facility] [address] [place] [address] Dr. Rey Stewart Basophils/100 WBC (Bld) 0.4 % Normal 0.2-2.0 [facility] Comment on above: Performed By: #### P T, PTT #### [facility] [address] [place] [address] Dr. Rey Stewart EO # 0.0 103/ul Normal 0.0-0.7 [facility] Comment on above: Performed By: #### P T, PTT #### [facility] [address] [place] [address] Dr. Rey Stewart Eosinophils/100 WBC (Bld) 0.4 % Critically low 0.9-7.0 [facility] Comment on above: Performed By: #### P T, PTT #### [facility] [address] [place] [address] Dr. Rey Stewart Erythrocyte distribution width (RBC) [Ratio] 13.9 % Normal 11.0-15.0 [facility] Comment on above: Performed By: #### P T, PTT #### [facility] [address] [place] [address] Dr. Rey Stewart Hematocrit (Bld) [Volume fraction] 37.6 % Normal 36.0-48.0 [facility] Comment on above: Performed By: #### P T, PTT #### [facility] [address] [place] [address] Dr. Rey Stewart Hemoglobin (Bld) [Mass/Vol] 12.1 g/dL Normal 12.0-16.0 [facility] Comment on above: Performed By: #### P T, PTT #### [facility] [address] [place] [address] Dr. Rey Stewart IG # 0.04 10e3/ul Critically high 0.00-0.03 [facility] Comment on above: Performed By: #### P T, PTT #### [facility] [address] [place] [address] Dr. Rey Stewart IG % 0.6 % Critically high 0.0-0.5 [facility] Comment on above: Performed By: #### P T, PTT #### [facility] [address] [place] [address] Dr. Rey Stewart LYMPH # 1.4 103/ul Normal 1.2-3.8 [facility] Comment on above: Performed By: #### P T, PTT #### [facility] [address] [place] [address] Dr. Rey Stewart Lymphocytes/100 WBC (Bld) 19.4 % Critically low 20.5-60.0 [facility] Comment on above: Performed By: #### P T, PTT #### [facility] [address] [place] [address] Dr. Rey Stewart MANUAL DIFF REQ NO Normal [facility] Comment on above: Performed By: #### P T, PTT #### [facility] [address] [place] [address] Dr. Rey Stewart MCH (RBC) [Entitic mass] 28.7 pg Normal 26.7-34.0 [facility] Comment on above: Performed By: #### P T, PTT #### [facility] [address] [place] [address] Dr. Rey Stewart MCHC (RBC) [Mass/Vol] 32.2 g/dL Normal 29.9-35.2 [facility] Comment on above: Performed By: #### P T, PTT #### [facility] [address] [place] [address] Dr. Rey Stewart MCV (RBC) [Entitic vol] 89.1 fL Normal 81.0-99.0 [facility] Comment on above: Performed By: #### P T, PTT #### [facility] [address] [place] [address] Dr. Rey Stewart MONO # 0.4 103/ul Normal 0.3-0.8 [facility] Comment on above: Performed By: #### P T, PTT #### [facility] [address] [place] [address] Dr. Rey Stewart Monocytes/100 WBC (Bld) 5.7 % Normal 1.7-12.0 [facility] Comment on above: Performed By: #### P T, PTT #### [facility] [address] [place] [address] Dr. Rey Stewart NEUT # 5.3 103/ul Normal 1.4-6.5 [facility] Comment on above: Performed By: #### P T, PTT #### [facility] [address] [place] [address] Dr. Rey Stewart Neutrophils/100 WBC (Bld) 73.5 % Normal 43.0-75.0 [facility] Comment on above: Performed By: #### P T, PTT #### [facility] [address] [place] [address] Dr. Rey Stewart Platelet mean volume (Bld) [Entitic vol] 9.8 fL Normal 9.5-13.5 [facility] Comment on above: Performed By: #### P T, PTT #### [facility] [address] [place] [address] Dr. Rey Stewart PLT 182 103/ul Normal 150-450 [facility] Comment on above: Performed By: #### P T, PTT #### [facility] [address] [place] [address] Dr. Rey Stewart RBC 4.22 106/ul Normal 4.20-5.40 [facility] Comment on above: Performed By: #### P T, PTT #### [facility] [address] [place] [address] Dr. Rey Stewart WBC 7.2 103/ul Normal 4.0-11.0 [facility] Comment on above: Performed By: #### P T, PTT #### [facility] [address] [place] [address] Dr. Rey Stewart FERRITINon 08-02-2022 Ferritin [Mass/Vol] 628.0 ng/mL Critically high 8.0-252.0 [facility] Comment on above: Performed By: #### B MP #### [facility] [address] [place] [address] Dr. Rey Stewart IRONon 08-02-2022 Iron [Mass/Vol] 43.0 ug/dL Critically low 50.0-170.0 [facility] Comment on above: Performed By: #### B MP #### [facility] [address] [place] [address] Dr. Rey Stewart MAGNESIUMon 08-02-2022 Magnesium [Mass/Vol] 1.7 mg/dL Critically low 1.8-2.4 [facility] Comment on above: Performed By: #### M G #### [facility] [address] [place] [address] Dr. Rey Stewart PTH INTACTon 06-06-2022 PTH, Intact 123 pg/mL Critically high 15-65 [facility] Comment on above: Performed By: #### P T, PTT #### [facility] [address] [address] [address] Rey Stewart PROF CHEM 8 (BAS METB)on Anion gap [Moles/Vol] 12.0 mmol/L Normal [facility] Comment on above: Performed By: #### B MP #### [facility] [address] [address] [address] Rey Stewart Calcium [Mass/Vol] 10.3 mg/dL Critically high 8.5-10.1 [facility] Comment on above: Performed By: #### B MP #### [facility] [address] [address] [address] Rey Stewart Chloride [Moles/Vol] 104 mmol/L Normal 98-107 [facility] Comment on above: Performed By: #### B MP #### [facility] [address] [address] [address] Rey Stewart CO2 [Moles/Vol] 32.7 mmol/L Critically high 21.0-32.0 [facility] Comment on above: Performed By: #### B MP #### [facility] [address] [place] [address] Dr. Rey Stewart Creatinine [Mass/Vol] 0.79 mg/dL Normal 0.55-1.02 [facility] Comment on above: Performed By: #### B MP #### [facility] [address] [address] [address] Rey Stewart EGFR-AF CHINESE >60 Normal >=60 [facility] Comment on above: Performed By: #### B MP #### [facility] [address] [address] [address] Rey Stewart EGFR-NON AF CHINESE >60 Normal >=60 [facility] Comment on above: Performed By: #### B MP #### [facility] [address] [place] [address] Dr. Rey Stewart Glucose [Mass/Vol] 94 mg/dL Normal 74-106 [facility] Comment on above: Performed By: #### B MP #### [facility] [address] [address] [address] Rey Stewart Potassium [Moles/Vol] 3.7 mmol/L Normal 3.5-5.1 [facility] Comment on above: Performed By: #### B MP #### [facility] [address] [address] [address] Rey Stewart Sodium [Moles/Vol] 145 mmol/L Normal 136-145 [facility] Comment on above: Performed By: #### B MP #### [facility] [address] [address] [address] Rey Stewart Urea nitrogen [Mass/Vol] 33.0 mg/dL Critically high 7.0-18.0 [facility] Comment on above: Performed By: #### B MP #### [facility] [address] [place] [address] Dr. Rey Stewart Urea nitrogen/Creatinin e [Mass ratio] 41.8 mg/mg Normal [facility] Comment on above: Performed By: #### B MP #### [facility] [address] [address] [address] Rey Stewart VITAMIN D 25 OHon 06-05-2022 VIT D 25-OH 76.2 ng/mL Normal [facility] Comment on above: Performed By: #### V ITAD #### [facility] [address] [place] [address] Dr. Rey Stewart VIT D RANGES SEE BELOW Normal [facility] Comment on above: Result Comment: <20 ng/mL Vit D deficient 20 - <30 ng/mL Vit D insufficient 30 - 100 ng/mL Vit D sufficient >100 ng/mL Potential Toxicity Performed By: #### V ITAD #### [facility] [address] [place] [address] Dr. Rey Stewart Office Visit (Cardiology)on 05-09-2022 [...] Coumadin managed by the Coumadin clinic at [facility]. 2?essential hypertension under control on metoprolol. [...] no bleeding problems. 6?nuclear stress test in [place] several years ago was normal, no need [...] 2.5 MG Oral [facility] Zinc 50 MG Oral TabletTAKE 1 TABLET DAILY. Allergies Medication Parafon Forte DSC TABS Allergy; Hives;; Recorded By: Judie Shelley; 03/15/2021 1:41:07 PM Social History Problems Caffeine use (V49.89) (Z78 (more content not included)... Normal [employer] CBC AUTO DIFFon 04-24-2022 BASO # 0.0 103/ul Normal 0.0-0.1 [facility] Comment on above: Performed By: #### B MP #### [facility] [address] [address] [address] Rey Stewart Basophils/100 WBC (Bld) 0.4 % Normal 0.2-2.0 [facility] Comment on above: Performed By: #### B MP #### [facility] [address] [address] [address] Rey Stewart EO # 0.0 103/ul Normal 0.0-0.7 [facility] Comment on above: Performed By: #### B MP #### [facility] [address] [address] [address] Rey Stewart Eosinophils/100 WBC (Bld) 0.6 % Critically low 0.9-7.0 [facility] Comment on above: Performed By: #### B MP #### [facility] [address] [place] [address] Dr. Rey Stewart Erythrocyte distribution width (RBC) [Ratio] 14.3 % Normal 11.0-15.0 [facility] Comment on above: Performed By: #### B MP #### [facility] [address] [address] [address] Rey Stewart Hematocrit (Bld) [Volume fraction] 37.5 % Normal 36.0-48.0 [facility] Comment on above: Performed By: #### B MP #### [facility] [address] [place] [address] Dr. Rey Stewart Hemoglobin (Bld) [Mass/Vol] 11.7 g/dL Critically low 12.0-16.0 [facility] Comment on above: Performed By: #### B MP #### [facility] [address] [place] [address] Dr. Rey Stewart IG # 0.02 10e3/ul Normal 0.00-0.03 [facility] Comment on above: Performed By: #### B MP #### [facility] [address] [place] [address] Dr. Rey Stewart IG % 0.3 % Normal 0.0-0.5 [facility] Comment on above: Performed By: #### B MP #### [facility] [address] [place] [address] Dr. Rey Stewart LYMPH # 1.4 103/ul Normal 1.2-3.8 [facility] Comment on above: Performed By: #### B MP #### [facility] [address] [place] [address] Dr. Rey Stewart Lymphocytes/100 WBC (Bld) 20.4 % Critically low 20.5-60.0 [facility] Comment on above: Performed By: #### B MP #### [facility] [address] [place] [address] Dr. Rey Stewart MANUAL DIFF REQ NO Normal [facility] Comment on above: Performed By: #### B MP #### [facility] [address] [place] [address] Dr. Rey Stewart MCH (RBC) [Entitic mass] 27.9 pg Normal 26.7-34.0 [facility] Comment on above: Performed By: #### B MP #### [facility] [address] [place] [address] Dr. Rey Stewart MCHC (RBC) [Mass/Vol] 31.2 g/dL Normal 29.9-35.2 [facility] Comment on above: Performed By: #### B MP #### [facility] [address] [place] [address] Dr. Rey Stewart MCV (RBC) [Entitic vol] 89.5 fL Normal 81.0-99.0 [facility] Comment on above: Performed By: #### B MP #### [facility] [address] [address] [address] Rey Stewart MONO # 0.5 103/ul Normal 0.3-0.8 [facility] Comment on above: Performed By: #### B MP #### [facility] [address] [place] [address] Dr. Rey Stewart Monocytes/100 WBC (Bld) 7.1 % Normal 1.7-12.0 [facility] Comment on above: Performed By: #### B MP #### [facility] [address] [place] [address] Dr. Rey Stewart NEUT # 5.0 103/ul Normal 1.4-6.5 [facility] Comment on above: Performed By: #### B MP #### [facility] [address] [place] [address] Dr. Rey Stewart Neutrophils/100 WBC (Bld) 71.2 % Normal 43.0-75.0 [facility] Comment on above: Performed By: #### B MP #### [facility] [address] [place] [address] Dr. Rey Stewart Platelet mean volume (Bld) [Entitic vol] 10.3 fL Normal 9.5-13.5 [facility] Comment on above: Performed By: #### B MP #### [facility] [address] [place] [address] Dr. Rey Stewart PLT 145 103/ul Critically low 150-450 [facility] Comment on above: Performed By: #### B MP #### [facility] [address] [place] [address] Dr. Rey Stewart RBC 4.19 106/ul Critically low 4.20-5.40 [facility] Comment on above: Performed By: #### B MP #### [facility] [address] [place] [address] Dr. Rey Stewart WBC 7.1 103/ul Normal 4.0-11.0 [facility] Comment on above: Performed By: #### B MP #### [facility] [address] [place] [address] Dr. Rey Stewart IRONon 04-24-2022 Iron [Mass/Vol] 35.0 ug/dL Critically low 50.0-170.0 [facility] Comment on above: Performed By: #### I DURAN #### [facility] [address] [place] [address] Dr. Rey Stewart MAGNESIUMon 04-24-2022 Magnesium [Mass/Vol] 1.8 mg/dL Normal 1.8-2.4 [facility] Comment on above: Performed By: #### B MP, MG #### [facility] [address] [place] [address] Dr. Rey Stewart PROF CHEM 8 (BAS METB)on Anion gap [Moles/Vol] 10.0 mmol/L Normal [facility] Comment on above: Performed By: #### B MP, MG #### [facility] [address] [place] [address] Dr. Rey Stewart Calcium [Mass/Vol] 10.1 mg/dL Normal 8.5-10.1 [facility] Comment on above: Performed By: #### B MP, MG #### [facility] [address] [place] [address] Dr. Rey Stewart Chloride [Moles/Vol] 103 mmol/L Normal 98-107 [facility] Comment on above: Performed By: #### B MP, MG #### [facility] [address] [place] [address] Dr. Rey Stewart CO2 [Moles/Vol] 29.7 mmol/L Normal 21.0-32.0 [facility] Comment on above: Performed By: #### B MP, MG #### [facility] [address] [place] [address] Dr. Rey Stewart Creatinine [Mass/Vol] 0.91 mg/dL Normal 0.55-1.02 [facility] Comment on above: Performed By: #### B MP, MG #### [facility] [address] [place] [address] Dr. Rey Stewart EGFR-AF CHINESE >60 Normal >=60 [facility] Comment on above: Performed By: #### B MP, MG #### [facility] [address] [address] [address] Rey Stewart EGFR-NON AF CHINESE >60 Normal >=60 [facility] Comment on above: Performed By: #### B MP, MG #### [facility] [address] [address] [address] Rey Stewart Glucose [Mass/Vol] 89 mg/dL Normal 74-106 [facility] Comment on above: Performed By: #### B MP, MG #### [facility] [address] [address] [address] Rey Stewart Potassium [Moles/Vol] 3.7 mmol/L Normal 3.5-5.1 [facility] Comment on above: Performed By: #### B MP, MG #### [facility] [address] [place] [address] Dr. Rey Stewart Sodium [Moles/Vol] 139 mmol/L Normal 136-145 [facility] Comment on above: Performed By: #### B MP, MG #### [facility] [address] [address] [address] Rey Stewart Urea nitrogen [Mass/Vol] 20.0 mg/dL Critically high 7.0-18.0 [facility] Comment on above: Performed By: #### B MP, MG #### [facility] [address] [place] [address] Dr. Rey Stewart Urea nitrogen/Creatinin e [Mass ratio] 22.0 mg/mg Normal [facility] Comment on above: Performed By: #### B MP, MG #### [facility] [address] [place] [address] Dr. Rey Stewart VITAMIN B1 (THIAMINE)on Vit. B1, Whole Blood 223.9 nmol/L Critically high 66.5-200.0 [facility] Comment on above: Performed By: #### V ITB1T #### [facility] [address] [place] [address] Dr. Rey Stewart COPPER, SERUM or PLASMAon Copper, Serum 135 ug/dL Normal 80-158 [facility] Comment on above: Result Comment: Dete ction Limit = 5 Performed By: #### P T, PTT #### [facility] [address] [place] [address] Dr. Rey Stewart ZINC SERUM OR PLASMAon 02-07 Zinc, Plasma or Serum 67 ug/dL Normal 44-115 [facility] Comment on above: Result Comment: Dete ction Limit = 5 Performed By: #### Z inc #### [facility] [address] [place] [address] Dr. Rey Stewart CBC AUTO DIFFon 02-05-2022 BASO # 0.0 103/ul Normal 0.0-0.1 [facility] Comment on above: Performed By: #### B MP #### [facility] [address] [place] [address] Dr. Rey Stewart Basophils/100 WBC (Bld) 0.7 % Normal 0.2-2.0 [facility] Comment on above: Performed By: #### B MP #### [facility] [address] [place] [address] Dr. Rey Stewart EO # 0.0 103/ul Normal 0.0-0.7 [facility] Comment on above: Performed By: #### B MP #### [facility] [address] [place] [address] Dr. Rey Stewart Eosinophils/100 WBC (Bld) 0.4 % Critically low 0.9-7.0 [facility] Comment on above: Performed By: #### B MP #### [facility] [address] [place] [address] Dr. Rey Stewart Erythrocyte distribution width (RBC) [Ratio] 13.9 % Normal 11.0-15.0 [facility] Comment on above: Performed By: #### B MP #### [facility] [address] [place] [address] Dr. Rey Stewart Hematocrit (Bld) [Volume fraction] 34.5 % Critically low 36.0-48.0 [facility] Comment on above: Performed By: #### B MP #### [facility] [address] [address] [address] Rey Stewart Hemoglobin (Bld) [Mass/Vol] 10.8 g/dL Critically low 12.0-16.0 [facility] Comment on above: Performed By: #### B MP #### [facility] [address] [address] [address] Rey Stewart IG # 0.01 10e3/ul Normal 0.00-0.03 [facility] Comment on above: Performed By: #### B MP #### [facility] [address] [address] [address] Rey Stewart IG % 0.2 % Normal 0.0-0.5 [facility] Comment on above: Performed By: #### B MP #### [facility] [address] [place] [address] Dr. Rey Stewart LYMPH # 1.0 103/ul Critically low 1.2-3.8 [facility] Comment on above: Performed By: #### B MP #### [facility] [address] [place] [address] Dr. Rey Stewart Lymphocytes/100 WBC (Bld) 21.7 % Normal 20.5-60.0 [facility] Comment on above: Performed By: #### B MP #### [facility] [address] [place] [address] Dr. Rey Stewart MANUAL DIFF REQ NO Normal [facility] Comment on above: Performed By: #### B MP #### [facility] [address] [place] [address] Dr. Rey Stewart MCH (RBC) [Entitic mass] 28.0 pg Normal 26.7-34.0 [facility] Comment on above: Performed By: #### B MP #### [facility] [address] [place] [address] Dr. Rey Stewart MCHC (RBC) [Mass/Vol] 31.3 g/dL Normal 29.9-35.2 [facility] Comment on above: Performed By: #### B MP #### [facility] [address] [place] [address] Dr. Rey Stewart MCV (RBC) [Entitic vol] 89.4 fL Normal 81.0-99.0 [facility] Comment on above: Performed By: #### B MP #### [facility] [address] [place] [address] Dr. Rey Stewart MONO # 0.4 103/ul Normal 0.3-0.8 [facility] Comment on above: Performed By: #### B MP #### [facility] [address] [place] [address] Dr. Rey Stewart Monocytes/100 WBC (Bld) 9.3 % Normal 1.7-12.0 [facility] Comment on above: Performed By: #### B MP #### [facility] [address] [place] [address] Dr. Rey Stewart NEUT # 3.1 103/ul Normal 1.4-6.5 [facility] Comment on above: Performed By: #### B MP #### [facility] [address] [place] [address] Dr. Rey Stewart Neutrophils/100 WBC (Bld) 67.7 % Normal 43.0-75.0 [facility] Comment on above: Performed By: #### B MP #### [facility] [address] [place] [address] Dr. Rey Stewart Platelet mean volume (Bld) [Entitic vol] 10.2 fL Normal 9.5-13.5 [facility] Comment on above: Performed By: #### B MP #### [facility] [address] [place] [address] Dr. Rey Stewart PLT 152 103/ul Normal 150-450 [facility] Comment on above: Performed By: #### B MP #### [facility] [address] [place] [address] Dr. Rey Stewart RBC 3.86 106/ul Critically low 4.20-5.40 [facility] Comment on above: Performed By: #### B MP #### [facility] [address] [place] [address] Dr. Rey Stewart WBC 4.6 103/ul Normal 4.0-11.0 [facility] Comment on above: Performed By: #### B MP #### [facility] [address] [place] [address] Dr. Rey Stewart FERRITINon 02-05-2022 Ferritin [Mass/Vol] 680.0 ng/mL Critically high 8.0-252.0 [facility] Comment on above: Performed By: #### P T, PTT #### [facility] [address] [place] [address] Dr. Rey Stewart IRON AND TIBCon 02-05-2022 % SATURATION 10.6 % Normal [facility] Comment on above: Performed By: #### P T, PTT #### [facility] [address] [place] [address] Dr. Rey Stewart Iron [Mass/Vol] 28.0 ug/dL Critically low 50.0-170.0 [facility] Comment on above: Performed By: #### P T, PTT #### [facility] [address] [place] [address] Dr. Rey Stewart TIBC DIRECT 263.0 ug/dL Normal 250.0-450.0 [facility] Comment on above: Performed By: #### P T, PTT #### [facility] [address] [place] [address] Dr. Rey Stewart MAGNESIUMon 02-05-2022 Magnesium [Mass/Vol] 1.4 mg/dL Critically low 1.8-2.4 [facility] Comment on above: Performed By: #### B MP #### [facility] [address] [place] [address] Dr. Rey Stewart PHOSPHORUSon 02-05-2022 Phosphate [Mass/Vol] 2.9 mg/dL Normal 2.6-4.7 [facility] Comment on above: Performed By: #### B MP #### [facility] [address] [place] [address] Dr. Rey Stewart PROF 14(COMP METB)on Albumin [Mass/Vol] 3.1 g/dL Critically low 3.4-5.0 [facility] Comment on above: Performed By: #### B MP #### [facility] [address] [address] [address] Rey Stewart Albumin/Globulin [Mass ratio] 0.8 {ratio} Normal [facility] Comment on above: Performed By: #### B MP #### [facility] [address] [address] [address] Rey Stewart ALP [Catalytic activity/Vol] 60 U/L Normal 46-116 [facility] Comment on above: Performed By: #### B MP #### [facility] [address] [address] [address] Rey Stewart ALT [Catalytic activity/Vol] 18 U/L Normal 14-59 [facility] Comment on above: Performed By: #### B MP #### [facility] [address] [place] [address] Dr. Rey Stewart Anion gap [Moles/Vol] 8.9 mmol/L Normal [facility] Comment on above: Performed By: #### B MP #### [facility] [address] [place] [address] Dr. Rey Stewart AST [Catalytic activity/Vol] 24 U/L Normal 15-37 [facility] Comment on above: Performed By: #### B MP #### [facility] [address] [place] [address] Dr. Rey Stewart Bilirubin [Mass/Vol] 0.9 mg/dL Normal 0.2-1.0 [facility] Comment on above: Performed By: #### B MP #### [facility] [address] [place] [address] Dr. Rey Stewart Calcium [Mass/Vol] 9.8 mg/dL Normal 8.5-10.1 [facility] Comment on above: Performed By: #### B MP #### [facility] [address] [address] [address] Rey Stewart Chloride [Moles/Vol] 100 mmol/L Normal 98-107 [facility] Comment on above: Performed By: #### B MP #### [facility] [address] [address] [address] Rey Stewart CO2 [Moles/Vol] 32.7 mmol/L Critically high 21.0-32.0 [facility] Comment on above: Performed By: #### B MP #### [facility] [address] [address] [address] Rey Stewart Creatinine [Mass/Vol] 1.02 mg/dL Normal 0.55-1.02 [facility] Comment on above: Performed By: #### B MP #### [facility] [address] [address] [address] Rey Stewart EGFR-AF CHINESE >60 Normal >=60 [facility] Comment on above: Performed By: #### B MP #### [facility] [address] [place] [address] Dr. Rey Stewart EGFR-NON AF CHINESE 54 mL/min/1.73m2 Critically low >=60 [facility] Comment on above: Performed By: #### B MP #### [facility] [address] [place] [address] Dr. Rey Stewart Globulin (S) [Mass/Vol] 4.1 g/dL Normal [facility] Comment on above: Performed By: #### B MP #### [facility] [address] [place] [address] Dr. Rey Stewart Glucose [Mass/Vol] 96 mg/dL Normal 74-106 [facility] Comment on above: Performed By: #### B MP #### [facility] [address] [place] [address] Dr. Rey Stewart Potassium [Moles/Vol] 3.6 mmol/L Normal 3.5-5.1 [facility] Comment on above: Performed By: #### B MP #### [facility] [address] [place] [address] Dr. Rey Stewart Protein [Mass/Vol] 7.2 g/dL Normal 6.4-8.2 [facility] Comment on above: Performed By: #### B MP #### [facility] [address] [place] [address] Dr. Rey Stewart Sodium [Moles/Vol] 138 mmol/L Normal 136-145 [facility] Comment on above: Performed By: #### B MP #### [facility] [address] [address] [address] Rey Stewart Urea nitrogen [Mass/Vol] 28.0 mg/dL Critically high 7.0-18.0 [facility] Comment on above: Performed By: #### B MP #### [facility] [address] [address] [address] Rey Stewart Urea nitrogen/Creatinin e [Mass ratio] 27.5 mg/mg Normal [facility] Comment on above: Performed By: #### B MP #### [facility] [address] [place] [address] Dr. Rey Stewart VIT B12 AND FOLATEon 022 Cobalamin (Vitamin B12) [Mass/Vol] 1002.0 pg/mL Critically high 193.0-986.0 [facility] Comment on above: Performed By: #### P T, PTT #### [facility] [address] [place] [address] Dr. Rey Stewart FOLATE 20.30 ng/mL Normal 8.60-58.90 [facility] Comment on above: Performed By: #### P T, PTT #### [facility] [address] [place] [address] Dr. Rey Stewart VITAMIN D 25 OHon 02-05-2022 VIT D 25-OH 73.5 ng/mL Normal [facility] Comment on above: Performed By: #### P T, PTT #### [facility] [address] [place] [address] Dr. Rey Stewart VIT D RANGES SEE BELOW Normal [facility] [facility] Comment on above: Result Comment: <20 ng/mL Vit D deficient 20 - <30 ng/mL Vit D insufficient 30 - 100 ng/mL Vit D sufficient >100 ng/mL Potential Toxicity Performed By: #### P T, PTT #### [facility] [address] [place] [address] Dr. Rey Stewart PROF CHEM 8 (BAS METB)on Anion gap [Moles/Vol] 7.5 mmol/L Normal [facility] Comment on above: Performed By: #### P T, PTT #### [facility] [address] [place] [address] Dr. Rey Stewart Calcium [Mass/Vol] 10.1 mg/dL Normal 8.5-10.1 [facility] Comment on above: Performed By: #### P T, PTT #### [facility] [address] [address] [address] Rey Stewart Chloride [Moles/Vol] 101 mmol/L Normal 98-107 [facility] Comment on above: Performed By: #### P T, PTT #### [facility] [address] [place] [address] Dr. Rey Stewart CO2 [Moles/Vol] 34.1 mmol/L Critically high 21.0-32.0 [facility] Comment on above: Performed By: #### P T, PTT #### [facility] [address] [place] [address] Dr. Rey Stewart Creatinine [Mass/Vol] 0.85 mg/dL Normal 0.55-1.02 [facility] Comment on above: Performed By: #### P T, PTT #### [facility] [address] [place] [address] Dr. Rey Stewart EGFR-AF CHINESE >60 Normal >=60 [facility] Comment on above: Performed By: #### P T, PTT #### [facility] [address] [place] [address] Dr. Rey Stewart EGFR-NON AF CHINESE >60 Normal >=60 [facility] Comment on above: Performed By: #### P T, PTT #### [facility] [address] [place] [address] Dr. Rey Stewart Glucose [Mass/Vol] 77 mg/dL Normal 74-106 [facility] Comment on above: Performed By: #### P T, PTT #### [facility] [address] [place] [address] Dr. Rey Stewart Potassium [Moles/Vol] 3.6 mmol/L Normal 3.5-5.1 [facility] Comment on above: Performed By: #### P T, PTT #### [facility] [address] [place] [address] Dr. Rey Stewart Sodium [Moles/Vol] 139 mmol/L Normal 136-145 [facility] Comment on above: Performed By: #### P T, PTT #### [facility] [address] [place] [address] Dr. Rey Stewart Urea nitrogen [Mass/Vol] 26.0 mg/dL Critically high 7.0-18.0 [facility] Comment on above: Performed By: #### P T, PTT #### [facility] [address] [place] [address] Dr. Rey Stewart Urea nitrogen/Creatinin e [Mass ratio] 30.6 mg/mg Normal [facility] Comment on above: Performed By: #### P T, PTT #### [facility] [address] [place] [address] HEAD WO CONon [...] HARPREET QUINTERO Date: 2021-11-10 14:33 Normal [facility] PROTIMEon 11-10-2021 INR Coag (PPP) [Relative time] 2.75 {INR} Normal [facility] Comment on above: Performed By: #### P T, PTT #### [facility] [address] [place] [address] Dr. Rey Stewart INR GUIDELINES SEE BELOW Normal [facility] Comment on above: Result Comment: MOUNIKA RED INR: 2.0 - 3.0 CONDITIONS NOT LISTED BELOW 2.5 - 3.5 FOR PROSTHETIC HEART VALVE REPLACEMENT 2.5 - 3.5 RECURRENT THROMBOSIS Performed By: #### P T, PTT #### [facility] [address] [place] [address] Dr. Rey Stewart PT Coag (PPP) [Time] 27.8 s Critically high 9.0-11.6 [facility] Comment on above: Performed By: #### P T, PTT #### [facility] [address] [place] [address] Dr. Rey Stewart PTTon 11-10-2021 aPTT Coag (Bld) [Time] 48.4 s Critically high 22.3-36.2 [facility] Comment on above: Performed By: #### P T, PTT #### [facility] [address] [place] [address] Dr. Rey Stewart POTASSIUMon 11-09-2021 Potassium [Moles/Vol] 3.4 mmol/L Critically low 3.5-5.1 [facility] Comment on above: Performed By: #### B MP #### [facility] [address] [place] [address] Dr. Rey Stewart PROF CHEM 8 (BAS METB)on Anion gap [Moles/Vol] 9.7 mmol/L Normal [facility] Comment on above: Performed By: #### P T, PTT #### [facility] [address] [place] [address] Dr. Rey Stewart Calcium [Mass/Vol] 10.2 mg/dL Critically high 8.5-10.1 [facility] Comment on above: Performed By: #### P T, PTT #### [facility] [address] [place] [address] Dr. Rey Stewart Chloride [Moles/Vol] 98 mmol/L Normal 98-107 [facility] Comment on above: Performed By: #### P T, PTT #### [facility] [address] [address] [address] Rey Stewart CO2 [Moles/Vol] 36.0 mmol/L Critically high 21.0-32.0 [facility] Comment on above: Performed By: #### P T, PTT #### [facility] [address] [address] [address] Rey Stewart Creatinine [Mass/Vol] 0.99 mg/dL Normal 0.55-1.02 [facility] Comment on above: Performed By: #### P T, PTT #### [facility] [address] [address] [address] Rey Stewart EGFR-AF CHINESE >60 Normal >=60 [facility] Comment on above: Performed By: #### P T, PTT #### [facility] [address] [address] [address] Rey Stewart EGFR-NON AF CHINESE 56 mL/min/1.73m2 Critically low >=60 [facility] Comment on above: Performed By: #### P T, PTT #### [facility] [address] [address] [address] Rey Stewart Glucose [Mass/Vol] 98 mg/dL Normal 74-106 [facility] Comment on above: Performed By: #### P T, PTT #### [facility] [address] [address] [address] Rey Stewart Potassium [Moles/Vol] 2.6 mmol/L Critically low 3.5-5.1 [facility] Comment on above: Performed By: #### P T, PTT #### [facility] [address] [address] [address] Rey Stewart Sodium [Moles/Vol] 139 mmol/L Normal 136-145 [facility] Comment on above: Performed By: #### P T, PTT #### [facility] [address] [address] [address] Rey Stewart Urea nitrogen [Mass/Vol] 37.0 mg/dL Critically high 7.0-18.0 [facility] Comment on above: Performed By: #### P T, PTT #### [facility] [address] [place], [place] [address] Dr. Rey Stewart Urea nitrogen/Creatinin e [Mass ratio] 37.4 mg/mg Normal [facility] Comment on above: Performed By: #### P T, PTT #### [facility] [address] [place], [place] [address] Dr. Rey Stewart Office Visit (Cardiology)on 11-01-2021 [...] Weight Tips; Status:Complete - Retrospective Authorization; Done: [id number] Some eating tips that can help you lose weight.; Status:Complete - Retrospective Authorization; Done: [id number] SocHx: Former smoker Tobacco Use Screening; Status:Complete; Done: [id number] Unlinked Stop: metOLazone 5 MG Oral Tablet [...] therapy managed by the Coumadin clinic at [facility]. She does have chronic lower extremity [...] Coumadin managed by the Coumadin clinic at [facility]. We agreed to pursue rate control [...] no bleeding problems. 6?nuclear stress test in [place] several years ago was normal, no need [...] 2.5 MG Oral TabletBellevue [facility] [place] (more content not included)... Normal [employer] Tobacco Screening.on Fall risk assessment a) No falls within the last year [facility] 250 DO Work Phone: Tobacco use status [facility] b) No [facility] 250 DO Work Phone: Tobacco Screening.on Adult depression screening assessment No [facility] 250 DO Work Phone: Fall risk assessment a) No falls within the last year [facility] DO Work Phone: Tobacco use status [facility] b) No [facility] 250 DO Work Phone: Vital Signs Date Time Vital Sign Value Performing Clinician Facility 05-13-2023 14:42-0500 Diastolic blood pressure 60 mm[Hg] Corey Prabhakar MD Work Phone: [facility] 05-13-2023 14:42-0500 Systolic blood pressure 110 mm[Hg] Corey Prabhakar MD Work Phone: [facility] 05-13-2023 14:20-0500 Body height 165.1 cm Corey Prabhakar MD Work Phone: [facility] 05-13-2023 14:20-0500 Body mass index (BMI) [Ratio] 39.94 kg/m2 Corey Prabhakar MD Work Phone: [facility] 05-13-2023 14:20-0500 Body weight 108.86 kg Corey Prabhakar MD Work Phone: [facility] 05-13-2023 14:20-0500 Heart rate 56 /min Corey Prabhakar MD Work Phone: [facility] 04-17-2023 14:08-0500 Body height 162.6 cm Noel Farnsworth MD Work Phone: [facility] 04-17-2023 14:08-0500 Body mass index (BMI) [Ratio] 41.37 kg/m2 Noel Farnsworth MD Work Phone: [facility] 04-17-2023 14:08-0500 Body temperature 98.71 [degF] Noel Farnsworth MD Work Phone: [facility] 04-17-2023 14:08-0500 Body weight 109.32 kg Noel Farnsworth MD Work Phone: [facility] 04-17-2023 14:08-0500 Diastolic blood pressure 80 mm[Hg] Noel Farnsworth MD Work Phone: [facility] 04-17-2023 14:08-0500 Heart rate 82 /min Noel Farnsworth MD Work Phone: [facility] 04-17-2023 14:08-0500 SaO2% (BldA) [Mass fraction] 98 % Noel Farnsworth MD Work Phone: [facility] 04-17-2023 14:08-0500 Systolic blood pressure 128 mm[Hg] Noel Farnsworth MD Work Phone: [facility] 10-23-2022 11:59-0400 Body height 165.1 cm Noel Farnsworth Work Phone: [facility] 250 DO Work Phone: 10-23-2022 11:59-0400 Body mass index (BMI) [Ratio] 39.44 kg/m2 Noel Snow Javad Work Phone: [facility] 250 DO Work Phone: 10-23-2022 11:59-0400 Body surface area Derived from formula 2.13 m2 Noel Snow Javad Work Phone: [facility] 250 DO Work Phone: 10-23-2022 11:59-0400 Body weight 107.5 kg Noel Farnsworth Work Phone: [facility] 250 DO Work Phone: 10-23-2022 11:59-0400 Diastolic blood pressure 68 mm[Hg] Noel Farnsworth Work Phone: [facility] 250 DO Work Phone: 10-23-2022 11:59-0400 Heart rate 72 /min Noel Snow Javad Work Phone: [facility] DO Work Phone: 10-23-2022 11:59-0400 Systolic blood pressure 110 mm[Hg] Noel Snow Javad Work Phone: [facility] DO Work Phone: 11-01-2021 09:33-0400 Body height 165.1 cm Corey Prabhakar MD Work Phone: [facility] 250 DO Work Phone: 11-01-2021 09:33-0400 Body mass index (BMI) [Ratio] 41.81 kg/m2 Corey Prabhakar MD Work Phone: [facility] 250 DO Work Phone: 11-01-2021 09:33-0400 Body surface area Derived from formula 2.18 m2 Corey Prabhakar MD Work Phone: [facility] 250 DO Work Phone: 11-01-2021 09:33-0400 Body weight 113.97 kg Corey Prabhakar MD Work Phone: [facility] 250 DO Work Phone: 11-01-2021 09:33-0400 Diastolic blood pressure 62 mm[Hg] Corey Prabhakar MD Work Phone: [facility] DO Work Phone: 11-01-2021 09:33-0400 Heart rate 60 /min Corey Prabhakar MD Work Phone: [facility] 250 DO Work Phone: 11-01-2021 09:33-0400 Systolic blood pressure 108 mm[Hg] Corey Prabhakar MD Work Phone: [facility] 250 DO Work Phone: 04-26-2021 11:21-0500 Body height 165.1 cm Corey Prabhakar MD Work Phone: [facility] 250 DO Work Phone: 04-26-2021 11:21-0500 Body mass index (BMI) [Ratio] 42.77 kg/m2 Corey Prabhakar MD Work Phone: [facility] 250 DO Work Phone: 04-26-2021 11:21-0500 Body surface area Derived from formula 2.2 m2 Corey Prabhakar MD Work Phone: [facility] DO Work Phone: 04-26-2021 11:21-0500 Body weight 116.58 kg Corey Prabhakar MD Work Phone: [facility] DO Work Phone: 04-26-2021 11:21-0500 Diastolic blood pressure 84 mm[Hg] Corey Prabhakar MD Work Phone: [facility] 250 DO Work Phone: 04-26-2021 11:21-0500 Heart rate 59 /min Corey Prabhakar MD Work Phone: [facility] 250 DO Work Phone: 04-26-2021 11:21-0500 Systolic blood pressure 113 mm[Hg] Corey Prabhakar MD Work Phone: [facility] 250 DO Work Phone: Encounters Encounter Date Encounter Type Care Provider Facility Start: 05-13-2023 End: 05-13-2023 Office outpatient visit 25 minutes Corey Prabhakar MD Work Phone: [facility] Comment on above: Permanent atrial fib rillation with RVR (CMS/HCC) (Primary Dx); Essential hypertension; Hypokalemia; BMI 39.0-39.9,adult; Former smoker; Obstructive sleep apnea; High risk medication use Start: 04-17-2023 End: 04-17-2023 ambulatory NOEL FARNSWORTH Not Available Start: 04-17-2023 End: 04-17-2023 Office outpatient visit 15 minutes Noel Farnsworth MD Work Phone: [facility] Comment on above: Acute non-recurrent sinusitis, unspecified location Start: 04-17-2023 Bamboo flowsheet Noel martel MD Work Phone: [facility] Start: 04-17-2023 Bamboo flowsheet Noel martel MD Work Phone: [facility] Start: 04-10-2023 End: 04-10-2023 ambulatory NOEL FARNSWORTH Not Available Start: 03-25-2023 End: 03-25-2023 ambulatory Noel Farnsworth Facility:[facility] Start: 03-25-2023 End: 03-25-2023 ambulatory II Noel Farnsworth Work Phone: [facility] Work Phone: Start: 03-25-2023 End: 03-25-2023 Patient encounter procedure II Noel Farnsworth Work Phone: [facility] Work Phone: Start: 03-07-2023 End: 03-07-2023 Patient encounter procedure II Noel Farnsworth Work Phone: [facility] Work Phone: Start: 03-01-2023 End: 03-01-2023 ambulatory HARPREET Snow EDWARDO Not Available Start: 02-20-2023 End: 02-20-2023 ambulatory Noelbossman Farnsworth Facility:[facility] Start: 02-20-2023 End: 02-20-2023 ambulatory II Noel Farnsworth Work Phone: [facility] Work Phone: Start: 02-20-2023 End: 02-20-2023 Patient encounter procedure II Noel Farnsworth Work Phone: [facility] Work Phone: Start: 02-15-2023 End: 02-15-2023 ambulatory SHERLYN RUCKER Not Available Start: 02-14-2023 End: 02-14-2023 ambulatory LAZARO BORRERO Not Available Start: 02-13-2023 End: 02-13-2023 ambulatory HARPREET Snow EDWARDO Not Available Start: 01-29-2023 End: 01-29-2023 ambulatory HARPREET B EDWARDO Not Available Start: 01-24-2023 End: 01-24-2023 ambulatory HARPREET B EDWARDO Not Available Start: 11-20-2022 Telephone encounter Noel Snow erry Work Phone: [facility] 250 DO Work Phone: Start: 11-13-2022 End: 11-14-2022 ambulatory Noel Farnsworth Facility:[facility] Start: 10-23-2022 Office outpatient vi sit 25 minutes Noel Farnsworth Work Phone: [facility] 250 DO Work Phone: Start: 10-23-[address] Corey Prabhakar Facility: Start: 08-02-2022 End: 08-03-[address] NOEL FARNSWORTH Facility:[facility] Start: 07-09-2022 End: 08-08-2022 ambulatory KOCH H FAWWAD Facility:[facility] Start: 06-11-2022 End: 07-06-2022 ambulatory KOCH [...] KIDD Facility:[facility] Start: 01-17-2022 End: 01-17-2022 ambulatory II Noel Farnsworth Work Phone: [facility] Work Phone: Start: 01-17-2022 End: 01-17-2022 Patient encounter procedure II Noel Farnsworth Work Phone: [facility] Start: 01-09-2022 End: 02-07-2022 ambulatory KOCH H FAWWAD Facility:[facility] Start: 12-25-2021 End: 12-25-2021 ambulatory II Noel Farnsworth Work Phone: [facility] Work Phone: Start: 12-25-2021 End: 12-25-2021 Discharged Recurring II Noel Farnsworth Work Phone: [facility] [employer] [facility] [address] Start: 12-25-2021 Registered Recurring II Noel Farnsworth Work Phone: [facility] [address] Start: 12-10-2021 End: 01-08-2022 ambulatory SHAIKH Connie MURILLO Facility:[facility] Start: 11-28-2021 Rx Renewal Corey Prabahkar MD Work Phone: [facility] 250 DO Work Phone: Start: 11-19-2021 Encounter for genera l adult medical examination without abnormal findings DR COREY PRABHAKAR [facility] Start: 11-14-2021 End: 11-15-[address] NOEL FARNSWORTH Facility:[facility] Start: 11-14-2021 End: 11-15-2021 Encounter for general adult medical examination without abnormal findings DR NOEL FARNSWORTH Facility:[facility] Start: 11-10-2021 End: 11-10-[address] NOEL FARNSWORTH Facility:[facility] Start: 11-09-2021 End: 11-10-[address] NOEL FARNSWORTH Facility:[facility] Start: 11-09-2021 End: 12-09-2021 ambulatory SHAIKH Connie MURILLO Facility:[facility] Start: 11-06-2021 Telephone encounter Corey dawkins MD Work Phone: [facility] 250 DO Work Phone: Start: 11-06-2021 End: 11-07-[address] NOEL FARNSWORTH Facility:[facility] Start: 11-01-2021 Office outpatient vi sit 25 minutes Corey Prabhakar MD Work Phone: [facility] 250 DO Work Phone: Start: 10-09-2021 End: 11-08-2021 ambulatory KOCH H LAURAJuanLENIN Facility:[facility] Start: 09-15-2021 End: 09-16-[address] NOEL FARNSWORTH Facility:[facility] Start: 09-08-2021 End: 10-06-2021 ambulatory SHAIKH Connie MURILLO Facility: Start: 07-26-2021 Rx Renewal Corey Prabhakar MD Work Phone: [facility] 250 DO Work Phone: Start: 04-26-2021 Office outpatient vi sit 25 minutes Corey Prabhakar MD Work Phone: [facility] 250 DO Work Phone: Start: 04-26-2021 Patient encounter procedure Corey Prabhakar MD Work Phone: [facility] 250 DO Work Phone: Start: 12-09-2017 End: 12-10-2017 Patient encounter procedure DEFAULT PHYSICIAN Facility:[facility] Start: 09-16-2017 End: 09-17-2017 Patient encounter procedure STEPHANIE CAVAZOS Facility:[facility] Procedures Date Procedure Procedure Detail Performing Clinician [...] Work Phone: Ligation of varicose vein Sutton ssan Prabhakar MD Work Phone: Operation on skin Noel joe Work Phone: Operation on stomach Corey Prabhakar MD Work Phone: Release of trigger finger Sutton steffen Prabhakar MD Work Phone: Thyroidectomy Corey Prabhakar MD Work Phone: Total colonoscopy Corey dawkins MD Work Phone: Plan of Treatment Date Care Activity Detail Author Start: 03-30-2030 Screening for malign ant neoplasm of colon [facility] Start: 03-28-2025 Screening for osteoporosis Bone Density Scan [facility] Start: 03-18-2024 End: 03-18-2024 Patient encounter procedure 03/18/2024 9:45 AM EST Office Visit [facility] [address] [place] [address] Sherlyn Rucker DO [address] [place] [address] [facility] Start: 02-16-2024 Medicare Annual Wellness (AWV) Medicare Annual Wellness (AWV) [facility] Start: 11-28-2023 End: 11-28-2023 Patient encounter procedure 11/28/2023 9:30 AM EDT Office Visit [facility] [address] [facility] [address] [place] [address] Corey Prabhakar MD [address] [facility] [address] [place] [address] [facility] Start: 10-29-2023 End: 10-29-2023 Patient encounter procedure 10/29/2023 9:30 AM EDT Office Visit [facility] [address] [place] [phone] Denisha Herron NP [address] [place] [address] [facility] Start: 10-13-2023 End: 05-12-2024 Basic metabolic 2000 panel - Serum or Plasma Basic Metabolic Panel Lab Routine Permanent atrial fibrillation with RVR (CMS/HCC) Essential hypertension Hypokalemia Expected: 10/13/2023, Expires: 05/12/2024 [facility] Service Area Work Phone: Comment on above: Expected: 10/13/2023 , Expires: 05/12/2024 Start: 10-13-2023 End: 05-12-2024 CBC panel - Blood by Automated count CBC Lab Routine Permanent atrial fibrillation with RVR (CMS/HCC) Essential hypertension Hypokalemia Expected: 10/13/2023, Expires: 05/12/2024 [facility] Work Phone: Comment on above: Expected: 10/13/2023 , Expires: 05/12/2024 Start: 07-25-2023 End: 07-25-2023 Patient encounter procedure 07/25/2023 9:30 AM EDT Office Visit [facility] [address] [place] [phone] Lazaro Borrero DO [address] [place] [address] [facility] Start: 05-01-2023 End: 05-01-2023 Patient encounter procedure 05/01/2023 9:30 AM EST Office Visit [facility] [address] [facility] [address] [place] [id number] Noel Farnsworth MD [address] [facility] [address] [place] [address] [facility] Start: 04-24-2023 FUV, Provider: Corey Prabhakar, Status: Pen, Time: 9:30 AM FUV, Provider: Corey Prabhakar, Status: Pen, Time: 9:30 AM -[facility] 250 DO Work Phone: Start: 04-17-2023 End: 04-17-2023 Patient encounter procedure 04/17/2023 2:15 PM EST Office Visit [facility] [address] [facility] [address] [place] [phone] Noel Farnsworth MD [address] [facility] [address] [place] [address] Arrived [facility] Comment on above: Arrived Start: 01-17-2023 Screening for malign ant neoplasm of breast Mammogram [facility] Start: 11-09-2022 COVID-19 Vaccine ( season) COVID-19 Vaccine () [facility] Start: 11-09-2022 Influenza vaccination Influenza Vacc ine (#1) [facility] Start: 05-09-2022 FUV, Provider: Corey Prabhakar, Status: Pen, Time: 9:20 AM FUV, Provider: Corey Prabhakar, Status: Pen, Time: 9:[address] [facility] 250 DO Work Phone: Start: 11-01-2021 FUV, Provider: Corey Prabhakar, Status: Pen, Time: 9:30 AM FUV, Provider: Corey Prabhakar, Status: Pen, Time: 9:[address] [facility] 250 DO Work Phone: Start: 09-22-2019 Pneumococcal Vaccine : 65+ Years (1 - PCV) Pneumococcal Vaccine: 65+ Years (1 - PCV) [facility] Start: 2004 Zoster Vaccines (1 o f 2) Zoster Vaccines (1 of 2) [facility] Start: 1976 DTaP/Tdap/Td Vaccine s (1 - Tdap) DTaP/Tdap/Td Vaccines (1 - Tdap) [facility] Start: 1972 Diabetes mellitus screening Diabetes Screening [facility] Start: 1972 Hepatitis C screening Hepatitis C [facility] Start: 1960 Pneumococcal Vaccine : 65+ Years (1 - PCV) Pneumococcal Vaccine: 65+ Years (1 - PCV) [facility] Start: 1954 Lipid panel Lipid Panel [facility] Start: 1954 Medicare Annual Wellness Visit Medicare Annual Wellness Visit (AWV) [facility] Start: 1954 Screening for malign ant neoplasm of colon [facility] Immunizations Immunization Date Immunization Notes Care Provider Laura guadalupe 02-14-2021 Pfizer-BioNTech COVID-19 Vacc 30 MCG/0.3ML Intramuscular Suspension Corey Prabhakar MD Work Phone: [facility] 06-30-2020 Pfizer-BioNTech COVID-19 Vacc 30 MCG/0.3ML Intramuscular Suspension Corey Prabhakar MD Work Phone: [facility] 250 DO Work Phone: 06-07-2020 Pfizer-BioNTech COVID-19 Vacc 30 MCG/0.3ML Intramuscular Suspension Corey Prabhakar MD Work Phone: [facility] 01-07-2012 influenza, seasonal, injectable, preservative free Noel Farnsworth MD Work Phone: [facility] 01-07-2012 influenza virus vaccine, unspecified formulation Noel Farnsworth MD Work Phone: [facility] Payers Date Payer Category Payer Unknown [id number] 2022 Self-pay [id number] 2022 Medicare [id number] 2020 Unknown 1959 Medicare [id number] 1959 Medicare [id number] 1959 Private Health Insurance [facility] [id number] 1959 Unknown [id number] 1959 Unknown [id number] 1954 Unknown [id number] 2.16.8 40.1.983457.3.579.2.647 1954 Unknown [id number] 2.16.8 40.1.504443.3.579.2.647 1954 Unknown [id number] 2.16.84 0.1.471692.3.579.2.593 1954 Unknown [id number] 2.16.84 0.1.047451.3.579.2.593 1954 Unknown [id number] 2.16.84 0.1.789532.3.579.2.593 1954 Unknown [id number] 2.16.84 0.1.393631.3.579.2.593 1954 Unknown [id number] 2.16.84 0.1.601719.3.579.2.593 1954 Unknown [id number] 2.16.84 0.1.496048.3.579.2.593 1954 Unknown [id number] 2.16.84 0.1.849067.3.579.2.593 1954 Unknown [id number] 2.16.84 0.1.800805.3.579.2.593 1954 Unknown [id number] 2.16.84 0.1.517544.3.579.2.593 1954 Unknown [id number] 2.16.84 0.1.495658.3.579.2.593 1954 Unknown [id number] 2.16.84 0.1.271487.3.579.2.593 1954 Unknown [id number] 2.16.84 0.1.519647.3.579.2.593 1954 Unknown [id number] 2.16.84 0.1.782336.3.579.2.593 1954 Unknown [id number] 2.16.84 0.1.217588.3.579.2.593 1954 Unknown [id number] 2.16.84 0.1.243797.3.579.2.593 1954 Unknown [id number] 2.16.84 0.1.016051.3.579.2.593 1954 Unknown [id number] 2.16.84 0.1.771050.3.579.2.593 1954 Unknown [id number] 2.16.84 0.1.294606.3.579.2.593 1954 Unknown [id number] 2.16.84 0.1.935960.3.579.2.593 1954 Unknown [id number] 2.16.84 0.1.992853.3.579.2.593 1954 Unknown [id number] 2.16.84 0.1.835001.3.579.2.593 1954 Unknown [id number] 2.16. 840.1.171666.3.579.2.356 1954 Unknown [id number] 2.16. 840.1.814832.3.579.2.356 1954 Unknown [id number] 2.16.84 0.1.181915.3.579.2.1259 1954 Unknown [id number] 2.16.84 0.1.623419.3.579.2.1259 1954 Unknown [id number] 2.16.840 .1.131784.3.579.2.1259 1954 Unknown [id number] 2.16.840 .1.256326.3.579.2.125 1954 Unknown [id number] 2.16.840 .1.561248.3.579.2.1259 1954 Unknown [id number] 2.16.840 .1.572623.3.579.2.1259 1954 Unknown [id number] 2.16.840 .1.452518.3.579.2.1259 1954 Unknown [id number] 2.16.840 .1.110025.3.579.2.1259 [facility] [id number] Medicare [id number] Unknown [id number] 2.16.8 40.1.717672.3.579.2.531 Unknown [id number] 2.16.8 40.1.956687.3.579.2.531 Unknown [id number] 2.16.8 40.1.797670.3.579.2.531 Social History Date Type Detail Facility Start: 04-17-2023 End: 05-13-2023 Social alcohol use Social alcohol use [facility] Start: 1955 Sex Assigned At Female F [facility] Start: 10-18-2022 Tobacco smoking stat [facility] Never smoked tobacco [facility] Start: 10-18-2022 Tobacco use and exposure Smokeless tobacco non-user [facility] Start: 04-10-2023 End: 04-17-2023 Alcohol intake Lifetime non-drinker (finding) [facility] Start: 04-17-2023 End: 05-13-2023 Tobacco use panel [facility] Start: 08-17-2022 Alcohol Comment caffeine: none [facility] Start: 1955 Sex Assigned At Not on file [facility] Start: 05-13-2023 [facility] Work Phone: End: 03-11-1981 History of tobacco use Current smoker [facility] Work Phone: End: 03-11-1981 History of tobacco use Cigarette Smoker [facility] Work Phone: Start: 05-13-2023 Alcohol intake Current drinke r of alcohol (finding) [facility] Work Phone: Start: 03-28-2023 Alcohol Comment social [facility] [place] [place] Work Phone: Start: 05-03-2023 End: 05-13-2023 Exposure to SARS-CoV-2 (event) Not sure [facility] History of Present illness Narrative 05-13-2023 Corey Prabhakar MD - 05/13/2023 2:00 PM EST Note Date & Type Note Facility 05-13-2023 History of Present illness Narrative Subjective Marla Figueredo is a 67 y.o. female Chief Complaint Follow-up HPI Patient is in the office for follow-up for permanent atrial fibrillation. She has had no cardiac events since her last visit. Her weight remains way above target and she is still not utilizing her CPAP machine. She had blood work that was done last week which I reviewed with her potassium 4.1 and renal function is normal. She is not retaining fluid millimoles per liter, she sees her PCP on regular basis. Examination is only remarkable for irregular rhythm. Assessment/recommendations: 1-permanent atrial fibrillation that is asymptomatic. Heart rate is controlled on metoprolol 25 mg twice daily and on chronic anticoagulation with Coumadin managed by the Coumadin clinic at [facility]. 2-essential hypertension under control on metoprolol. 3- history of severe lower extremity edema and Neurontin event resolved on medical therapy. We will continue triple diuretics and follow renal function closely.. 4-morbid obesity status post bariatric surgery but remains in class II obesity, more aggressive weight loss was recommended 5-high risk medication with anticoagulation with no bleeding problems. 6-nuclear stress test in [place] several years ago was normal, no need to repeat. 7-sleep apnea intolerant to CPAP machine. More weight loss was recommended Review of Systems All other systems reviewed and are negative. Vitals: 05/13/23 1420 05/13/23 1442 BP: 90/64 110/60 BP Location: Left arm Patient Position: Sitting Pulse: 56 Weight: 109 kg (240 lb) Height: 1.651 m (5' 5 ) Objective Physical Exam Constitutional: Appearance: Normal appearance. HENT: Nose: Nose normal. Neck: Vascular: No carotid bruit. Cardiovascular: Rate and Rhythm: Normal rate. Rhythm irregular. Pulses: Normal pulses. Heart sounds: Normal heart sounds. Pulmonary: Effort: Pulmonary effort is normal. Abdominal: General: Bowel sounds are normal. Palpations: Abdomen is soft. Musculoskeletal: General: Normal range of motion. Cervical back: Normal range of motion. Right lower leg: No edema. Left lower leg: No edema. Skin: General: Skin is warm and dry. Neurological: General: No focal deficit present. Mental Status: She is alert. Psychiatric: Mood and Affect: Mood normal. Behavior: Behavior normal. Thought Content: Thought content normal. Judgment: Judgment normal. Allergies Chlorzoxazone Current Medications Current Outpatient Medications: ascorbic acid (Vitamin C) 1,000 mg tablet, Take 2 tablets (2,000 mg) by mouth once daily., Disp: , Rfl: BACILLUS COAGULANS-INULIN ORAL, Take 1 tablet by mouth once daily., Disp: , Rfl: calcium carbonate 600 mg calcium (1,500 mg) tablet, Take 1 tablet (1,500 mg) by mouth once daily., Disp: , Rfl: cholecalciferol (Vitamin D-3) 25 MCG (1000 UT) tablet, Take 80 tablets (80,000 Units) by mouth once daily., Disp: , Rfl: copper gluconate 2 mg tablet, Take 1 tablet by mouth once daily., Disp: , Rfl: cyanocobalamin, vitamin B-12, (VITAMIN B-12 ORAL), Take 1 tablet by mouth once daily., Disp: , Rfl: docosahexaenoic acid/epa (FISH OIL ORAL), Take 1,400 mg by mouth once daily., Disp: , Rfl: famotidine (Pepcid) 20 mg tablet, Take 1 tablet (20 mg) by mouth as needed at bedtime., Disp: , Rfl: ferrous sulfate 325 (65 Fe) MG tablet, Take 1 tablet by mouth 2 times a day., Disp: , Rfl: loratadine (Claritin) 10 mg tablet, Take 1 tablet (10 mg) by mouth once daily as needed for allergies., Disp: , Rfl: magnesium 250 mg tablet, Take 1 tablet (250 mg) by mouth once daily., Disp: , Rfl: multivitamin capsule, Take 1 capsule by mouth once daily., Disp: , Rfl: pantoprazole (ProtoNix) 40 mg EC tablet, Take 1 tablet (40 mg) by mouth once daily., Disp: , Rfl: potassium chloride CR 20 mEq ER tablet, Take 1 tablet (20 mEq) by mouth 4 times a day., Disp: 120 tablet, Rfl: 11 turmeric root extract 500 mg tablet, Take 1 tablet by mouth once daily., Disp: , Rfl: warfarin (Coumadin) 2.5 mg tablet, Take by mouth. As directed by [facility], Disp: , Rfl: zinc gluconate 50 mg tablet, Take 1 tablet (50 mg) by mouth once daily., Disp: , Rfl: metoprolol tartrate (Lopressor) 25 mg tablet, Take 1 tablet (25 mg) by mouth 2 times a day., Disp: 180 tablet, Rfl: 3 spironolactone (Aldactone) 50 mg tablet, Take 1 tablet (50 mg) by mouth once daily., Disp: 90 tablet, Rfl: 3 torsemide (Demadex) 20 mg tablet, Take 1 tablet (20 mg) by mouth once daily., Disp: 90 tablet, Rfl: 3 Assessment/Plan 1. Permanent atrial fibrillation with RVR (CMS/HCC) Follow Up In Cardiology Basic Metabolic Panel CBC Basic Metabolic Panel CBC 2. Essential hypertension spironolactone (Aldactone) 50 mg tablet torsemide (Demadex) 20 mg tablet metoprolol tartrate (Lopressor) 25 mg tablet Basic Metabolic Panel CBC Basic Metabolic Panel CBC 3. Hypokalemia spironolactone (Aldactone) 50 mg tablet Basic Metabolic Panel CBC Basic Metabolic Panel CBC 4. BMI 39.0-39.9,adult 5. Former smoker Scribe Attestation By signing my name below, I, Dhruv Milner LPN attest that this documentation has been prepared under the direction and in the presence of Corey Prabhakar MD. Provider Attestation - Scribe documentation All medical record entries made by the Scribe were at my direction and personally dictated by me. I have reviewed the chart and agree that the record accurately reflects my personal performance of the history, physical exam, discussion and plan. documented in this encounter [facility] Work Phone: Instructions 05-13-2023 Patient Instructions Note Date & Type Note Facility 05-13-2023 Hugo Gerardo LPN - 05/13/2023 2:00 PM EST Please bring all medicines, vitamins, and herbal supplements with you when you come to the office. Prescriptions will not be filled unless you are compliant with your follow up appointments or have a follow up appointment scheduled as per instruction of your physician. Refills should be requested at the time of your visit. BMI was above normal measurement. Current weight: 109 kg (240 lb) Weight change since last visit (-) denotes wt loss 3 lbs Weight loss needed to achieve BMI 25: 90.1 Lbs Weight loss needed to achieve BMI 30: 60.1 Lbs Provided instructions on dietary changes. documented in this encounter [facility] Work Phone: History of Present illness Narrative 04-17-2023 Noel [...] the morning. cholecalciferol (Vitamin D-3) 1.25 MG (08676 UT) capsule Take one capsule daily 100 [...] 500 mg by mouth in the morning. [place]-3 Fatty Acids (Fish Oil) 1200 MG capsule [...] fail to improve. documented in this encounter [facility] Clinical Note 11-10-2021 Note Date & Type [...] by: HARPREET QUINTERO Date: 2021-11-10 14:37 [facility] Clinical Note 09-15-2021 Note Date & [...] midfoot degenerative changes. Electronically authenticated by: BETY GIORDANO Date: 2021-09-15 16:00 [facility] Evaluation note Note Date & Type Note Facility Evaluation note [facility] Work Phone: Evaluation note Note Date & Type Note Facility Evaluation note Diagnosis Acute non-recurrent sinusitis, unspecified location documented in this encounter [facility] Evaluation note Note Date & Type Note Facility Evaluation note Diagnosis Permanent atrial fibrillation with RVR (CMS/HCC)- Primary Essential hypertension Unspecified essential hypertension Hypokalemia Hypopotassemia BMI 39.0-39.9,adult Former smoker Personal history of tobacco use, presenting hazards to health Obstructive sleep apnea Obstructive sleep apnea (adult) (pediatric) High risk medication use documented in this encounter [facility] Work Phone: Reason for referral (narrative) Consultation (Routine) - Authorized Note Date & Type Note Facility Reason for referral (narrati ve) Specialty Diagnoses / Procedures Referred By Contac t Referred To Contact Cardiology Diagnoses Permanent atrial fibrillation with RVR (CMS/HCC) Procedures Follow Up In Cardiology Corey Prabhakar MD [address] [place] [address] 2, [address] [address] Corey Prabhakar MD [address] [place] [address] 2, [address] [address] Referral ID Status Reason Start Date Expiration Date V isits Requested Visits Authorized [id number] Authorized 05/13/2023 05/12/2024 1 1 [facility] Work Phone: Summary Purpose Family History Unknown Family Member [...] Coumadin managed by the Coumadin clinic at [facility]. We agreed to pursue rate control [...] problems. * 6 nuclear stress test in [place] several years ago was normal, no need to repeat. * 7 sleep apnea intolerant to CPAP machine. * MARLA FIGUEREDO is being seen for a 6 month follow-up of. * Patient is in the office for follow-up for the problems noted below. She continues to have chronic atrial fibrillation managed with rate control and [facility] She does have chronic lower extremity [...] Coumadin managed by the Coumadin clinic at [facility]. We agreed to pursue rate control [...] problems. * 6 nuclear stress test in [place] several years ago was normal, no need [...] fibrillation managed by the Coumadin clinic at [facility]. Her weight is couple pounds below [...] Coumadin managed by the Coumadin clinic at [facility]. * 2 essential hypertension under control [...] problems. * 6 nuclear stress test in [place] several years ago was normal, no need [...] fibrillation managed by the Coumadin clinic at [facility]. Her weight is couple pounds below [...] Coumadin managed by the Coumadin clinic at [facility]. * 2 essential hypertension under control [...] problems. * 6 nuclear stress test in [place] several years ago was normal, no need [...] and content) DATE CREATED AUTHOR 07/29/2018 [facility] DATE CREATED AUTHOR AUTHOR'S ORGANIZ ATION 08/17/2022 [facility] DATE CREATED AUTHOR AUTHOR'S ORGANIZ ATION 10/24/2022 [employer] DATE CREATED AUTHOR AUTHOR'S ORGANIZ ATION 12/23/2022 [facility] DATE CREATED AUTHOR AUTHOR'S ORGANIZ ATION 04/18/2023 [facility] EPIC DATE CREATED AUTHOR AUTHOR'S ORGANIZ ATION 04/19/2023 [facility] Care Teams (unrecognized sec tion and [...] MD Primary Care Provider, Attending Provider Active Theater Usher Relationship Specialty Start Date End Date Noel Farnsworth MD [address] [facility] [address] [place] [address] PCP - General Internal Medicine 08/14/22 Theater Usher Relationship Specialty Start Date End Date Noel Farnsworth MD [address] [facility] [address] [place] [address] PCP - General Internal Medicine 08/14/22 Theater Usher Relationship Specialty Start Date End Date Noel Farnsworth MD [address] [facility] [address] [place] [address] PCP - General 10/19/22 Goals (unrecognized section and content) Goals may be documented in a n alternate sectionGoals may be documented in an alternate sectionGoals may be documented in an alternate sectionGoals may be documented in an alternate sectionGoals may be documented in an alternate section Reason for Visit (unrecogniz ed section and content) Reason Comments Sinusitis Reason Comments Follow-up 6m FOR RECORDS PERTAINING TO PATIENTS WHO ARE [...] BE BASED ON THE PRIMARY CLINICAL RECORDS. [facility]. provides no warranty or guarantee of the accuracy or completeness of information in this document.
[2023-06-05 09:11] LABS: Alanine Aminotransferase 40 U/L (14-59); Albumin Globulin Ratio 0.9; Albumin Level 3.5 g/dL (3.4-5.0); Alkaline Phosphatase 100 U/L (46-116); Anion Gap 12.8; Aspartate Amino Transferase 24 U/L (15-37); BUN Creatinine Ratio 26.1; Bilirubin Total 1.2 mg/dL (0.2-1.0); Calcium 10.1 mg/dL (8.5-10.1); Carbon Dioxide 26.3 mmol/L (21.0-32.0); Chloride 104 mmol/L (98-107); Estimated GFR (African America >60 (>=60); Estimated GFR (Non-African Ame >60 (>=60); Globulin 3.7 g/dL; Glucose 96 mg/dL (74-106); Potassium 4.1 mmol/L (3.5-5.1); Sodium 139 mmol/L (136-145); Total Protein 7.2 g/dL (6.4-8.2)
== END 2023-06-05 07:37 | disposition home or self-care (01) ==
LOC: LAB 07:36
PROVIDERS: PCP Internal Medicine
DX: E21.3 Hyperparathyroidism, unspecified (principal)
CPT/HCPCS: 36415; 80053; 82306

== ENCOUNTER 2023-06-10 03:11 | Outpatient (RCR) | payer MEDICARE, SELFPAY | END 2023-07-09 17:42 | disposition home or self-care (01) | LOC: MM 03:11 | PROVIDERS: PCP Internal Medicine; Visit Provider Internal Medicine | DX: Z51.81 Encounter for therapeutic drug level monitoring (principal); Z79.01 Long term (current) use of anticoagulants; I48.20 Chronic atrial fibrillation, unspecified | CPT/HCPCS: 85610; G0463 ==

== ENCOUNTER 2023-07-10 04:31 | Outpatient (RCR) | payer MEDICARE, SELFPAY | END 2023-08-09 11:37 | disposition home or self-care (01) | LOC: MM 04:31 | PROVIDERS: PCP Internal Medicine; Visit Provider Internal Medicine | DX: Z51.81 Encounter for therapeutic drug level monitoring (principal); Z79.01 Long term (current) use of anticoagulants; I48.20 Chronic atrial fibrillation, unspecified | CPT/HCPCS: 85610; G0463 ==

== ENCOUNTER 2023-08-12 00:09 | Outpatient (RCR) | payer MEDICARE, SELFPAY | END 2023-09-06 10:09 | disposition home or self-care (01) | LOC: MM 00:09 | PROVIDERS: PCP Internal Medicine; Visit Provider Internal Medicine | DX: Z51.81 Encounter for therapeutic drug level monitoring (principal); Z79.01 Long term (current) use of anticoagulants; I48.20 Chronic atrial fibrillation, unspecified | CPT/HCPCS: 85610; G0463 ==

== ENCOUNTER 2023-09-09 00:29 | Outpatient (RCR) | payer MEDICARE, SELFPAY | END 2023-10-09 16:52 | disposition home or self-care (01) | LOC: MM 00:29 | PROVIDERS: PCP Internal Medicine; Visit Provider Internal Medicine | DX: Z51.81 Encounter for therapeutic drug level monitoring (principal); Z79.01 Long term (current) use of anticoagulants; I48.20 Chronic atrial fibrillation, unspecified | CPT/HCPCS: 85610; G0463 ==

== ENCOUNTER 2023-10-10 00:38 | Outpatient (RCR) | payer MEDICARE, SELFPAY | END 2023-11-08 09:12 | disposition home or self-care (01) | LOC: MM 00:38 | PROVIDERS: PCP Internal Medicine; Visit Provider Internal Medicine | DX: Z51.81 Encounter for therapeutic drug level monitoring (principal); Z79.01 Long term (current) use of anticoagulants; I48.20 Chronic atrial fibrillation, unspecified | CPT/HCPCS: 85610; G0463 ==

== ENCOUNTER 2023-11-01 08:09 | Outpatient (OUT) | payer MEDICARE, SELFPAY ==
--- OUTSIDE RECORDS SUMMARY | 2023-11-01 08:20 | XMS_ITS | CCD ---
Author Organization [facility] Care Team Providers Care Mumps Developer Name Role Phone STEPHANIE CAVAZOS AM Admitting Unavailable STEPHANIE CAVAZOS AM Attending Unavailable NOEL FARNSWORTH Referring Unavailable NOEL FARNSWORTH Primary Care Unavailable PHYSICIAN, DEFAULT Admitting Unavailable PHYSICIAN, DEFAULT Attending Unavailable NOEL FARNSWORTH Primary Care Unavailable Unavailable Unavailable Unavailable Unavailable SALMA Farnsworth Primary Care Provider TANIA Strickland Attending Provider [phone] DO Sherlyn Rucker Referring Provider [phone] GLEN Strickland Attending Provider DR NOEL FARNSWORTH [...] Care Unavailable FAWWAD, KOCH H Admitting Unavailable LIDIA, KOCH H Attending Unavailable DR NOEL FARNSWORTH Primary Care Unavailable ERWIN, AUDELIA Attending Unavailable ERWIN, AUDELIA Admitting Unavailable ERWIN, AUDELIA Consulting Unavailable JAVAD, DR PETERSON Primary Care Unavailable FAWWAD, KOCH [...] FARNSWORTH, DR PETERSON Primary Care Unavailable LALOR, EDEPIKA Attending Unavailable LALOR, DEEPIKA Admitting Unavailable LALOR, [...] Consulting Unavailable LALOR, DEEPIKA Attending Unavailable LALOR, DEEPIKA Admitting Unavailable LALOR, DEEPIKA Consulting Unavailable JAVAD, DR PETERSON Primary Care Unavailable FARNSWORTH, DR [...] Provider Unavailable Farnsworth, II Noel Attending Provider Farnsworth, Noel Admitting Unavailable Farnsworth, Noel Primary Care Unavailable Farnsworth, Noel Attending Unavailable Farnsworth, Noel Primary Care Unavailable Farnsworth, Noel Attending Unavailable Farnsworth, Noel Admitting Unavailable Farnsworth, Noel Primary Care Unavailable Self, Referral Admitting Unavailable Self, Referral Attending Unavailable Noel Farnsworth MD Primary Care Provider Noel Farnsworth MD Primary Care Provider AUDELIA GONZALEZ Attending Un available NOEL FARNSWORTH Referring Unavailable NOEL FARNSWORTH Primary Care Unavailable HARPREET BROOKE Attending Unavailable LAZARO BORRERO Referring Unavailable NOEL FARNSWORTH Attending Unavailable NOEL FARNSWORTH Attending Unavailable HARPREET BROOKE Attending Unavailable LAZARO BORRERO Referring Unavailable ADELAIDA HERRON Attending Unavailable BROWNLAZARO Attending Unavailable HEMMARLA BOWERS Attending Unavailable EMILY PARK Attending Unavailable HEMMARLA BOWERS Attending Unavailable HARPREET BROOKE Attending Unavailable LAZARO BORERRO A Referring Unavailable BROWNLAZARO Attending Unavailable SHERLYN RUCKER Attending Unavailable SHERLYN RUCKER Referring Unavailable ADELAIDA HERRON Attending Unavailable HARPREET BROOKE Attending Unavailable AVA BORREROSON Kenzie Referring Unavailable Allergies Allergy Classification Reported Allergen(s) Allergy Type Date of Onset Reaction(s) Facility (1 source) PARFON-FORTE; Translations: [PARFON-FORTE] Propensity to adverse reactions (disorder) 9 [facility] Repository (11 sources) Chlorzoxazone; Translations: [Parafon Forte DSC TABS] Drug Allergy 3 [facility] (1 source) Parafon Forte DSC Drug allergy (disorder) [address] [facility] Repository (3 sources) Chlorzoxazone; Translations: [CHLORZOXAZONE] Drug Allergy 8 Hives, Unknown [facility] (3 sources) gabapentin; Translations: [GABAPENTIN] Drug Allergy 1 Unknown [facility] Healthcare Medications Current Medications Medication Drug Class(es) [...] 02-27-2023 cholecalcifero l (Vitamin D-3) 1.25 MG (20039 UT) capsule Indications: Vitamin D deficiency Take [...] Active Start: 02-09-2020 take 1 tablet by twice daily ferrous sulfate 325 (65 Fe) [...] capsule by mouth once daily. 0 Active Carleton-3 Fatty Acids (Fish Oil) 1200 MG capsule delayed-release (2 sources) Carleton-3 Fatty Ac ids (Fish Oil) 1200 MG [...] Start: 11-06-2021 take 3 tablets by mo tnh three times daily Potassium Chloride ER 10 [...] tablet Take by mouth. 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; Translations: [CUSTODIAL (CURRENT) USE OF ANTICOAGULANTS] Onset: 8 Episodic Other aftercare (4 sources) Taking high risk medication; Translations: [Other superintendent terminal (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] Onset: 3 01-11-2023 Episodic [...] use] Onset: 4 05-13-2023 Episodic Thyroid disorders (3 sources) Non-toxic multinodular goiter; Translations: [Nontoxic multinodular [...] for malignant neoplasm of breast] Onset: 3 Unclassified (1 source) Thyroid Problem Onset: 4 Past or Other Problems Problem Classification Problem [...] 01-11-2023 Episodic Other aftercare (1 source) Other jail (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; Translations: [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] Onset: 2 Episodic Other aftercare (1 source) halfway (current) use of aspirin; Translations: [CUSTODIAL CURRENT USE OF ASPIRIN] Onset: 2 Episodic [...] n 02-20-2023 MM screening mammo BI w/CAD [facility] [place] [address] Mammography Report Signed Patient: Marla Figueredo MR#: [id number] 6 : 1955 Acct:[id number] Age/Sex: 67 / F ADM Date: 02/20/23 Loc: CT Room: Type: [facility] Attending Dr: Referral Self Copies to: Noel [...] Peter Sanchez M.D.02/20/2023 3:18 PM Dictation Location: [facility] Transcribed By: AJ 02/20/23 1518 Dictated By: Peter Sanchez II, MD 02/20/23 1514 Signed By: 02/20/23 1518 [facility] Office Visit (Cardiology)on 10-23-2022 Follow-up visit Diagnoses/Problems [...] Metabolic Panel; Status:Active - Retrospective Authorization; Requested for:[id number]; Complete Blood Count; Status:Active - Retrospective Authorization; Requested for:[id number]; Class 2 severe obesity with serious comorbidity and body mass index (BMI) of 39.0 to 39.9 in adult Healthy Weight Tips; Status:Complete - Retrospective Authorization; Done: [id number] Some eating tips that can help you lose weight.; Status:Complete - Retrospective Authorization; Done: [id number] Edema of both legs Renew: Torsemide 20 [...] Metabolic Panel; Status:Active - Retrospective Authorization; Requested for:[id number]; Complete Blood Count; Status:Active - Retrospective Authorization; Requested for:[id number]; Essential hypertension, Permanent atrial fibrillation Renew: Metoprolol Tartrate 25 MG Oral Tablet; TAKE 1 TABLET TWICE DAILY SocHx: Former smoker Tobacco Use Screening; Status:Complete; Done: [id number] Patient Instructions Please bring all medicines, vitamins, [...] up in 6 months Chief Complaint MARLA FIGUEERDO is being seen for a 6 month [...] fibrillation managed by the Coumadin clinic at [facility]. Her weight is couple pounds below her [...] Coumadin managed by the Coumadin clinic at [facility]. 2?essential hypertension under control on metoprolol. 3? history of severe lower extremity edema improved on medical therapy. We will continue triple diuretics and follow renal function closely.. 4?morbid obesity status post bariatric surgery but remains in class II obesity, more aggressive weight loss was recommended 5?high risk medication with anticoagulation with no bleeding problems. 6?nuclear stress test in [place] several years ago was normal, no need [...] NEEDED. Magnesium (more content not included)... Normal basno Tobacco Screening.on 023 Fall risk assessment a) No falls within the last year [facility] [address] DO Work Phone: Tobacco use status CPHS b) No [facility] 250 DO Work Phone: CBC AUTO DIFFon 08-02-2022 BASO # 0.0 103/ul Normal 0.0-0.1 [facility] Comment on above: Performed By: #### P T, PTT #### [facility] [address], [place] [address] Dr. Rey Stewart Basophils/100 WBC (Bld) 0.4 % Normal 0.2-2.0 [facility] Comment on above: Performed By: #### P T, PTT #### [facility] [address] [place] [address] Dr. Rey Stewart EO # 0.0 103/ul Normal 0.0-0.7 [facility] Comment on above: Performed By: #### P T, PTT #### [facility] [address] [place] [address] Dr. Rey Stewart Eosinophils/100 WBC (Bld) 0.4 % Critically low 0.9-7.0 [facility] Comment on above: Performed By: #### P T, PTT #### [facility] [address] [place] [address] Dr. Rey Stewart Erythrocyte distribution width (RBC) [Ratio] 13.9 % Normal 11.0-15.0 [facility] Comment on above: Performed By: #### P T, PTT #### [facility] [address] [place] [address] Dr. Rey Stewart Hematocrit (Bld) [Volume fraction] 37.6 % Normal 36.0-48.0 [facility] Comment on above: Performed By: #### P T, PTT #### [facility] [address] [place] [address] Dr. Rey Stewart Hemoglobin (Bld) [Mass/Vol] 12.1 g/dL Normal 12.0-16.0 [facility] Comment on above: Performed By: #### P T, PTT #### [facility] [address] [place] [address] Dr. Rey Stewart IG # 0.04 10e3/ul Critically high 0.00-0.03 [facility] Comment on above: Performed By: #### P T, PTT #### [facility] [address] [place] [address] Dr. Rey Stewart IG % 0.6 % Critically high 0.0-0.5 [place] Comment on above: Performed By: #### P T, PTT #### [facility] [address] [place] [address] Dr. Rey Stewart LYMPH # 1.4 103/ul Normal 1.2-3.8 [facility] Comment on above: Performed By: #### P T, PTT #### [facility] [address] [place] [address] Dr. Rey Stewart Lymphocytes/100 WBC (Bld) 19.4 % Critically low 20.5-60.0 [facility] Comment on above: Performed By: #### P T, PTT #### [facility] [address] [place] [address] Dr. Rey Stewart MANUAL DIFF REQ NO Normal [place] Comment on above: Performed By: #### P T, PTT #### [facility] [address] [place] [address] Dr. Rey Stewart MCH (RBC) [Entitic mass] 28.7 pg Normal 26.7-34.0 [facility] Comment on above: Performed By: #### P T, PTT #### [facility] [address] [place] [address] Dr. Rey Stewart MCHC (RBC) [Mass/Vol] 32.2 g/dL Normal 29.9-35.2 [facility] Comment on above: Performed By: #### P T, PTT #### [facility] [address] [place] [address] Dr. Rey Stewart MCV (RBC) [Entitic vol] 89.1 fL Normal 81.0-99.0 [facility] Comment on above: Performed By: #### P T, PTT #### [facility] [address] [place] [address] Dr. Rey Stewart MONO # 0.4 103/ul Normal 0.3-0.8 [facility] Comment on above: Performed By: #### P T, PTT #### [facility] [address] [place] [address] Dr. Rey Stewart Monocytes/100 WBC (Bld) 5.7 % Normal 1.7-12.0 [facility] Comment on above: Performed By: #### P T, PTT #### [facility] [address] [place] [address] Dr. Rey Stewart NEUT # 5.3 103/ul Normal 1.4-6.5 [facility] Comment on above: Performed By: #### P T, PTT #### [facility] [address] [place] [address] Dr. Rey Stewart Neutrophils/100 WBC (Bld) 73.5 % Normal 43.0-75.0 [facility] Comment on above: Performed By: #### P T, PTT #### [facility] [address] [place] [address] Dr. Rey Stewart Platelet mean volume (Bld) [Entitic vol] 9.8 fL Normal 9.5-13.5 [facility] Comment on above: Performed By: #### P T, PTT #### [facility] [address] [place] [address] Dr. Rey Stewart PLT 182 103/ul Normal 150-[address] [facility] Comment on above: Performed By: #### P T, PTT #### [facility] [address] [place] [address] Dr. Rey Stewart RBC 4.22 106/ul Normal 4.20-5.40 [facility] Comment on above: Performed By: #### P T, PTT #### [facility] [address] [place] [address] Dr. Rey Stewart WBC 7.2 103/ul Normal 4.0-11.0 [facility] Comment on above: Performed By: #### P T, PTT #### [facility] [address] [place] [address] Dr. Rey Stewart FERRITINon 08-02-2022 Ferritin [Mass/Vol] 628.0 ng/mL Critically high 8.0-252.0 [facility] Comment on above: Performed By: #### B MP #### [facility] [address] [place] [address] Dr. Rey Stewart IRONon 08-02-2022 Iron [Mass/Vol] 43.0 ug/dL Critically low 50.0-170.0 [facility] Comment on above: Performed By: #### B MP #### [facility] [address] [address] [address] Rey Stewart MAGNESIUMon 08-02-2022 Magnesium [Mass/Vol] 1.7 mg/dL Critically low 1.8-2.4 [facility] Comment on above: Performed By: #### M G #### [facility] [address] [place] [address] Dr. Rey Stewart PTH INTACTon 06-06-2022 PTH, Intact 123 pg/mL Critically high 15-65 [facility] Comment on above: Performed By: #### P T, PTT #### [facility] [address] [place] [address] Dr. Rey Stewart PROF CHEM 8 (BAS METB)on Anion gap [Moles/Vol] 12.0 mmol/L Normal [facility] Comment on above: Performed By: #### B MP #### [facility] [address] [place] [address] Dr. Rey Stewart Calcium [Mass/Vol] 10.3 mg/dL Critically high 8.5-10.1 [facility] Comment on above: Performed By: #### B MP #### [facility] [address] [place] [address] Dr. Rey Stewart Chloride [Moles/Vol] 104 mmol/L Normal 98-107 [facility] Comment on above: Performed By: #### B MP #### [facility] [address] [place] [address] Dr. Rey Stewart CO2 [Moles/Vol] 32.7 mmol/L Critically high 21.0-32.[address] [facility] Comment on above: Performed By: #### B MP #### [facility] [address] [place] [address] Dr. Rey Stewart Creatinine [Mass/Vol] 0.79 mg/dL Normal 0.55-1.02 [facility] Comment on above: Performed By: #### B MP #### [facility] [address] [place] [address] Dr. Rey Stewart EGFR-AF JAPANESE >60 Normal >=60 [facility] Comment on above: Performed By: #### B MP #### [facility] [address] [address] [address] Rey Stewart EGFR-NON AF JAPANESE >60 Normal >=60 [facility] Comment on above: Performed By: #### B MP #### [facility] [address] [address] [address] Rey Stewart Glucose [Mass/Vol] 94 mg/dL Normal 74-106 [facility] Comment on above: Performed By: #### B MP #### [facility] [address] [address] [address] Rey Stewart Potassium [Moles/Vol] 3.7 mmol/L Normal 3.5-5.1 [facility] Comment on above: Performed By: #### B MP #### [facility] [address] [address] [address] Rey Stewart Sodium [Moles/Vol] 145 mmol/L Normal 136-145 [facility] Comment on above: Performed By: #### B MP #### [facility] [address] [address] [address] Rey Stewart Urea nitrogen [Mass/Vol] 33.0 mg/dL Critically high 7.0-18.0 [facility] Comment on above: Performed By: #### B MP #### [facility] [address] [address] [address] Rey Stewart Urea nitrogen/Creatinin e [Mass ratio] 41.8 mg/mg Normal [facility] Comment on above: Performed By: #### B MP #### [facility] [address] [address] [address] Rey Stewart VITAMIN D 25 OHon 06-05-2022 VIT D 25-OH 76.2 ng/mL Normal [facility] Comment on above: Performed By: #### V ITAD #### [facility] [address] [address] [address] Rey Stewart VIT D RANGES SEE BELOW Normal [facility] Comment on above: Result Comment: <20 ng/mL Vit D deficient 20 - <30 ng/mL Vit D insufficient 30 - 100 ng/mL Vit D sufficient >100 ng/mL Potential Toxicity Performed By: #### V ITAD #### [facility] [address] [place] [address] Dr. Rey Stewart Office Visit (Cardiology)on 05-09-2022 [...] the patient: laboratory tests Chief Complaint MARLA JASKARAN is being seen for a 6 month [...] Coumadin managed by the Coumadin clinic at [facility]. 2?essential hypertension under control on metoprolol. 3? [...] no bleeding problems. 6?nuclear stress test in [place] several years ago was normal, no need [...] 2.5 MG [facility] Zinc 50 MG Oral TabletTAKE 1 TABLET DAILY. Allergies Medication Parafon Forte DSC TABS Allergy; Hives;; Recorded By: Judie Shelley; 03/15/2021 1:41:07 PM Social History Problems Caffeine use (V49.89) (Z78 (more content not included)... Normal basno CBC AUTO DIFFon 04-24-2022 BASO # 0.0 103/ul Normal 0.0-0.1 [facility] Comment on above: Performed By: #### B MP #### [facility] [address] [place] [address] Dr. Rey Stewart Basophils/100 WBC (Bld) 0.4 % Normal 0.2-2.0 [facility] Comment on above: Performed By: #### B MP #### [facility] [address] [place] [address] Dr. Rey Stewart EO # 0.0 103/ul Normal 0.0-0.7 [facility] Comment on above: Performed By: #### B MP #### [facility] [address] [address] [address] Rey Stewart Eosinophils/100 WBC (Bld) 0.6 % Critically low 0.9-7.0 [facility] Comment on above: Performed By: #### B MP #### [facility] [address] [place] [address] Dr. Rey Stewart Erythrocyte distribution width (RBC) [Ratio] 14.3 % Normal 11.0-15.0 [facility] Comment on above: Performed By: #### B MP #### [facility] [address] [place] [address] Dr. Rey Stewart Hematocrit (Bld) [Volume fraction] 37.5 % Normal 36.0-48.0 [facility] Comment on above: Performed By: #### B MP #### [facility] [address] [place] [address] Dr. Rey Stewart Hemoglobin (Bld) [Mass/Vol] 11.7 g/dL Critically low 12.0-16.0 [facility] Comment on above: Performed By: #### B MP #### [facility] [address] [place] [address] Dr. Rey Stewart IG # 0.02 10e3/ul Normal 0.00-0.03 [facility] Comment on above: Performed By: #### B MP #### [facility] [address] [place] [address] Dr. Rey Stewart IG % 0.3 % Normal 0.0-0.5 [facility] Comment on above: Performed By: #### B MP #### [facility] [address] [place] [address] Dr. Rey Stewart LYMPH # 1.4 103/ul Normal 1.2-3.8 [facility] Comment on above: Performed By: #### B MP #### [facility] [address] [place] [address] Dr. Rey Stewart Lymphocytes/100 WBC (Bld) 20.4 % Critically low 20.5-60.0 [facility] Comment on above: Performed By: #### B MP #### [facility] [address] [place] [address] Dr. Rey Stewart MANUAL DIFF REQ NO Normal [facility] Comment on above: Performed By: #### B MP #### [facility] [address] [place] [address] Dr. Rey Stewart MCH (RBC) [Entitic mass] 27.9 pg Normal 26.7-34.0 [facility] Comment on above: Performed By: #### B MP #### [facility] [address] [place] [address] Dr. Rey Stewart MCHC (RBC) [Mass/Vol] 31.2 g/dL Normal 29.9-35.2 [facility] Comment on above: Performed By: #### B MP #### [facility] [address] [place] [address] Dr. Rey Stewart MCV (RBC) [Entitic vol] 89.5 fL Normal 81.0-99.0 [facility] Comment on above: Performed By: #### B MP #### [facility] [address] [place] [address] Dr. Rey Stewart MONO # 0.5 103/ul Normal 0.3-0.8 [facility] Comment on above: Performed By: #### B MP #### [facility] [address] [place] [address] Dr. Rey Stewart Monocytes/100 WBC (Bld) 7.1 % Normal 1.7-12.0 [facility] Comment on above: Performed By: #### B MP #### [facility] [address] [place] [address] Dr. Rey Stewart NEUT # 5.0 103/ul Normal 1.4-6.5 [facility] Comment on above: Performed By: #### B MP #### [facility] [address] [place] [address] Dr. Rey Stewart Neutrophils/100 WBC (Bld) 71.2 % Normal 43.0-75.0 [facility] Comment on above: Performed By: #### B MP #### [facility] [address] [place] [address] Dr. Rey Stewart Platelet mean volume (Bld) [Entitic vol] 10.3 fL Normal 9.5-13.[address] [facility] Comment on above: Performed By: #### B MP #### [facility] [address] [place] [address] Dr. Rey Stewart PLT 145 103/ul Critically low 150-450 [facility] Comment on above: Performed By: #### B MP #### [facility] [address] [place] [address] Dr. Rey Stewart RBC 4.19 106/ul Critically low 4.20-5.40 [facility] Comment on above: Performed By: #### B MP #### [facility] [address] [place] [address] Dr. Rey Stewart WBC 7.1 103/ul Normal 4.0-11.0 [facility] Comment on above: Performed By: #### B MP #### [facility] [address] [place] [address] Dr. Rey Stewart IRONon 04-24-2022 Iron [Mass/Vol] 35.0 ug/dL Critically low 50.0-170.0 [facility] Comment on above: Performed By: #### I DURAN #### [facility] [address] [place] [address] Dr. Rey Stewart MAGNESIUMon 04-24-2022 Magnesium [Mass/Vol] 1.8 mg/dL Normal 1.8-2.4 [facility] Comment on above: Performed By: #### B MP, MG #### [facility] [address] [place] [address] Dr. Rey Stewart PROF CHEM 8 (BAS METB)on Anion gap [Moles/Vol] 10.0 mmol/L Normal [facility] Comment on above: Performed By: #### B MP, MG #### [facility] [address] [place] [address] Dr. Rey Stewart Calcium [Mass/Vol] 10.1 mg/dL Normal 8.5-10.1 [facility] Comment on above: Performed By: #### B MP, MG #### [facility] [address] [place] [address] Dr. eRy Stewart Chloride [Moles/Vol] 103 mmol/L Normal 98-[address] [facility] Comment on above: Performed By: #### B MP, MG #### [facility] [address] [place] [address] Dr. Rey Stewart CO2 [Moles/Vol] 29.7 mmol/L Normal 21.0-32.0 [facility] Comment on above: Performed By: #### B MP, MG #### [facility] [address] [place] [address] Dr. Rey Stewart Creatinine [Mass/Vol] 0.91 mg/dL Normal 0.55-1.02 [facility] Comment on above: Performed By: #### B MP, MG #### [facility] [address] [address] [address] Rey Stewart EGFR-AF JAPANESE >60 Normal >=60 [facility] Comment on above: Performed By: #### B MP, MG #### [facility] [address] [place] [address] Dr. Rey Stewart EGFR-NON AF JAPANESE >60 Normal >=60 [facility] Comment on above: Performed By: #### B MP, MG #### [facility] [address] [place] [address] Dr. Rey Stewart Glucose [Mass/Vol] 89 mg/dL Normal 74-106 [facility] Comment on above: Performed By: #### B MP, MG #### [facility] [address] [place] [address] Dr. Rey Stewart Potassium [Moles/Vol] 3.7 mmol/L Normal 3.5-5.1 [facility] Comment on above: Performed By: #### B MP, MG #### [facility] [address] [place] [address] Dr. Rey Stewart Sodium [Moles/Vol] 139 mmol/L Normal 136-145 [facility] Comment on above: Performed By: #### B MP, MG #### [facility] [address] [place] [address] Dr. Rey Stewart Urea nitrogen [Mass/Vol] 20.0 mg/dL Critically high 7.0-18.0 [facility] Comment on above: Performed By: #### B MP, MG #### [facility] [address] [place] [address] Dr. Rey Stewart Urea nitrogen/Creatinin e [Mass ratio] 22.0 mg/mg Normal [facility] Comment on above: Performed By: #### B MP, MG #### [facility] [address] [place] [address] Dr. Rey Stewart VITAMIN B1 (THIAMINE)on 120 Vit. B1, Whole Blood 223.9 nmol/L Critically high 66.5-200.0 [facility] Comment on above: Performed By: #### V ITB1T #### [facility] [address] [place] [address] Dr. Rey Stewart COPPER, SERUM or PLASMAon Copper, Serum 135 ug/dL Normal 80-158 [facility] Comment on above: Result Comment: Dete ction Limit = 5 Performed By: #### P T, PTT #### [facility] [address] [place] [address] Dr. Rey Stewart ZINC SERUM OR PLASMAon 02-07 Zinc, Plasma or Serum 67 ug/dL Normal 44-115 [facility] Comment on above: Result Comment: Dete ction Limit = 5 Performed By: #### Z inc #### [facility] [address] [place] [address] Dr. Rey Stewart CBC AUTO DIFFon 02-05-2022 BASO # 0.0 103/ul Normal 0.0-0.1 [facility] Comment on above: Performed By: #### B MP #### [facility] [address] [place] [address] Dr. Rey Stewart Basophils/100 WBC (Bld) 0.7 % Normal 0.2-2.[address] [facility] Comment on above: Performed By: #### B MP #### [facility] [address] [place] [address] Dr. Rey Stewart EO # 0.0 103/ul Normal 0.0-0.7 [facility] Comment on above: Performed By: #### B MP #### [facility] [address] [place] [address] Dr. Rey Stewart Eosinophils/100 WBC (Bld) 0.4 % Critically low 0.9-7.0 [facility] Comment on above: Performed By: #### B MP #### [facility] [address] [place] [address] Dr. Rey Stewart Erythrocyte distribution width (RBC) [Ratio] 13.9 % Normal 11.0-15.0 [facility] Comment on above: Performed By: #### B MP #### [facility] [address] [place] [address] Dr. Rey Stewart Hematocrit (Bld) [Volume fraction] 34.5 % Critically low 36.0-48.0 [facility] Comment on above: Performed By: #### B MP #### [facility] [address] [place] [address] Dr. Rey Stewart Hemoglobin (Bld) [Mass/Vol] 10.8 g/dL Critically low 12.0-16.0 [facility] Comment on above: Performed By: #### B MP #### [facility] [address] [place] [address] Dr. Rey Stewart IG # 0.01 10e3/ul Normal 0.00-0.03 [facility] Comment on above: Performed By: #### B MP #### [facility] [address] [place] [address] Dr. Rey Stewart IG % 0.2 % Normal 0.0-0.5 [facility] Comment on above: Performed By: #### B MP #### [facility] [address] [place] [address] Dr. Rey Stewart LYMPH # 1.0 103/ul Critically low 1.2-3.8 [facility] Comment on above: Performed By: #### B MP #### [facility] [address] [place] [address] Dr. Rey Stewart Lymphocytes/100 WBC (Bld) 21.7 % Normal 20.5-60.0 [facility] Comment on above: Performed By: #### B MP #### [facility] [address] [place] [address] Dr. Rey Stewart MANUAL DIFF REQ NO Normal [place] Comment on above: Performed By: #### B MP #### [facility] [address] [place] [address] Dr. Rey Stewart MCH (RBC) [Entitic mass] 28.0 pg Normal 26.7-34.0 [facility] Comment on above: Performed By: #### B MP #### [facility] [address] [place] [address] Dr. Rey Stewart MCHC (RBC) [Mass/Vol] 31.3 g/dL Normal 29.9-35.2 [facility] Comment on above: Performed By: #### B MP #### [facility] [address] [place] [address] Dr. Rey Stewart MCV (RBC) [Entitic vol] 89.4 fL Normal 81.0-99.0 [facility] Comment on above: Performed By: #### B MP #### [facility] [address] [place] [address] Dr. Rey Stewart MONO # 0.4 103/ul Normal 0.3-0.8 [facility] Comment on above: Performed By: #### B MP #### [facility] [address] [place] [address] Dr. Rey Stewart Monocytes/100 WBC (Bld) 9.3 % Normal 1.7-12.0 [facility] Comment on above: Performed By: #### B MP #### [facility] [address] [place] [address] Dr. Rey Stewart NEUT # 3.1 103/ul Normal 1.4-6.[address] [facility] Comment on above: Performed By: #### B MP #### [facility] [address] [place] [address] Dr. Rey Stewart Neutrophils/100 WBC (Bld) 67.7 % Normal 43.0-75.[address] [facility] Comment on above: Performed By: #### B MP #### [facility] [address] [place] [address] Dr. Rey Stewart Platelet mean volume (Bld) [Entitic vol] 10.2 fL Normal 9.5-13.5 [facility] Comment on above: Performed By: #### B MP #### [facility] [address] [place] [address] Dr. Rey Stewart PLT 152 103/ul Normal 150-450 [facility] Comment on above: Performed By: #### B MP #### [facility] [address] [place] [address] Dr. Rey Stewart RBC 3.86 106/ul Critically low 4.20-5.40 [place] Comment on above: Performed By: #### B MP #### [facility] [address] [place] [address] Dr. Rey Stewart WBC 4.6 103/ul Normal 4.0-11.0 [facility] Comment on above: Performed By: #### B MP #### [facility] [address] [place] [address] Dr. Rey Stewart FERRITINon 02-05-2022 Ferritin [Mass/Vol] 680.0 ng/mL Critically high 8.0-252.0 [facility] Comment on above: Performed By: #### P T, PTT #### [facility] [address] [place] [address] Dr. Rey Stewart IRON AND TIBCon 02-05-2022 % SATURATION 10.6 % Normal [facility] Comment on above: Performed By: #### P T, PTT #### [facility] [address] [place] [address] Dr. Rey Stewart Iron [Mass/Vol] 28.0 ug/dL Critically low 50.0-170.0 [facility] Comment on above: Performed By: #### P T, PTT #### [facility] [address] [place] [address] Dr. Rey Stewart TIBC DIRECT 263.0 ug/dL Normal 250.0-450.0 [facility] Comment on above: Performed By: #### P T, PTT #### [facility] [address] [place] [address] Dr. Rey Stewart MAGNESIUMon 02-05-2022 Magnesium [Mass/Vol] 1.4 mg/dL Critically low 1.8-2.4 [facility] Comment on above: Performed By: #### B MP #### [facility] [address] [place] [address] Dr. Rey Stewart PHOSPHORUSon 02-05-2022 Phosphate [Mass/Vol] 2.9 mg/dL Normal 2.6-4.7 [facility] Comment on above: Performed By: #### B MP #### [facility] [address] [place] [address] Dr. Rey Stewart PROF 14(COMP METB)on 022 Albumin [Mass/Vol] 3.1 g/dL Critically low 3.4-5.[address] [facility] Comment on above: Performed By: #### B MP #### [facility] [address] [place] [address] Dr. Rey Stewart Albumin/Globulin [Mass ratio] 0.8 {ratio} Normal [facility] Comment on above: Performed By: #### B MP #### [facility] [address] [place] [address] Dr. Rey Stewart ALP [Catalytic activity/Vol] 60 U/L Normal 46-116 [facility] Comment on above: Performed By: #### B MP #### [facility] [address] [place] [address] Dr. Rey Stewart ALT [Catalytic activity/Vol] 18 U/L Normal 14-59 [facility] Comment on above: Performed By: #### B MP #### [facility] [address] [place] [address] Dr. Rey Stewart Anion gap [Moles/Vol] 8.9 mmol/L Normal [facility] Comment on above: Performed By: #### B MP #### [facility] [address] [place] [address] Dr. Rey Stewart AST [Catalytic activity/Vol] 24 U/L Normal 15-37 [facility] Comment on above: Performed By: #### B MP #### [facility] [address] [place] [address] Dr. Rey Stewart Bilirubin [Mass/Vol] 0.9 mg/dL Normal 0.2-1.0 [facility] Comment on above: Performed By: #### B MP #### [facility] [address] [place] [address] Dr. Rey Stewart Calcium [Mass/Vol] 9.8 mg/dL Normal 8.5-10.1 [facility] Comment on above: Performed By: #### B MP #### [facility] [address] [address] [address] Rey Stewart Chloride [Moles/Vol] 100 mmol/L Normal 98-[address] [facility] Comment on above: Performed By: #### B MP #### [facility] [address] [address] [address] Rey Stewart CO2 [Moles/Vol] 32.7 mmol/L Critically high 21.0-32.0 [facility] Comment on above: Performed By: #### B MP #### [facility] [address] [place] [address] Dr. Rey Stewart Creatinine [Mass/Vol] 1.02 mg/dL Normal 0.55-1.02 [facility] Comment on above: Performed By: #### B MP #### [facility] [address] [place] [address] Dr. Rey Stewart EGFR-AF JAPANESE >60 Normal >=60 [facility] Comment on above: Performed By: #### B MP #### [facility] [address] [place] [address] Dr. Rey Stewart EGFR-NON AF JAPANESE 54 mL/min/1.73m2 Critically low >=[address] [facility] Comment on above: Performed By: #### B MP #### [facility] [address] [address] [address] Rey Stewart Globulin (S) [Mass/Vol] 4.1 g/dL Normal [facility] Comment on above: Performed By: #### B MP #### [facility] [address] [place] [address] Dr. Rey Stewart Glucose [Mass/Vol] 96 mg/dL Normal 74-106 [facility] Comment on above: Performed By: #### B MP #### [facility] [address] [place] [address] Dr. Rey Stewart Potassium [Moles/Vol] 3.6 mmol/L Normal 3.5-5.1 [facility] Comment on above: Performed By: #### B MP #### [facility] [address] [place] [address] Dr. Rey Stewart Protein [Mass/Vol] 7.2 g/dL Normal 6.4-8.2 [facility] Comment on above: Performed By: #### B MP #### [facility] [address] [place] [address] Dr. Rey Stewart Sodium [Moles/Vol] 138 mmol/L Normal 136-145 [facility] Comment on above: Performed By: #### B MP #### [facility] [address] [place] [address] Dr. Rey Stewart Urea nitrogen [Mass/Vol] 28.0 mg/dL Critically high 7.0-18.0 [facility] Comment on above: Performed By: #### B MP #### [facility] [address] [place] [address] Dr. Rey Stewart Urea nitrogen/Creatinin e [Mass ratio] 27.5 mg/mg Normal [facility] Comment on above: Performed By: #### B MP #### [facility] [address] [place] [address] Dr. Rey Stewart VIT B12 AND FOLATEon 022 Cobalamin (Vitamin B12) [Mass/Vol] 1002.0 pg/mL Critically high 193.0-986.0 [facility] Comment on above: Performed By: #### P T, PTT #### [facility] [address] [place] [address] Dr. Rey Stewart FOLATE 20.30 ng/mL Normal 8.60-58.90 [facility] Comment on above: Performed By: #### P T, PTT #### [facility] [address] [place] [address] Dr. Rey Stewart VITAMIN D 25 OHon 02-05-2022 VIT D 25-OH 73.5 ng/mL Normal [facility] Comment on above: Performed By: #### P T, PTT #### [facility] [address] [place] [address] Dr. Rey Stewart VIT D RANGES SEE BELOW Normal [facility] Comment on above: Result Comment: <20 ng/mL Vit D deficient 20 - <30 ng/mL Vit D insufficient 30 - 100 ng/mL Vit D sufficient >100 ng/mL Potential Toxicity Performed By: #### P T, PTT #### [facility] [address] [address] [address] Rey Stewart PROF CHEM 8 (BAS METB)on Anion gap [Moles/Vol] 7.5 mmol/L Normal [facility] Comment on above: Performed By: #### P T, PTT #### [facility] [address] [address] [address] Rey Stewart Calcium [Mass/Vol] 10.1 mg/dL Normal 8.5-10.1 [facility] Comment on above: Performed By: #### P T, PTT #### [facility] [address] [address] [address] Rey Stewart Chloride [Moles/Vol] 101 mmol/L Normal 98-107 [facility] Comment on above: Performed By: #### P T, PTT #### [facility] [address] [address] [address] Rey Stewart CO2 [Moles/Vol] 34.1 mmol/L Critically high 21.0-32.0 [facility] Comment on above: Performed By: #### P T, PTT #### [facility] [address] [address] [address] Rey Stewart Creatinine [Mass/Vol] 0.85 mg/dL Normal 0.55-1.02 [facility] Comment on above: Performed By: #### P T, PTT #### [facility] [address] [place] [address] Dr. Rey Stewart EGFR-AF JAPANESE >60 Normal >=60 [facility] Comment on above: Performed By: #### P T, PTT #### [facility] [address] [address] [address] Rey Stewart EGFR-NON AF JAPANESE >60 Normal >=60 [facility] Comment on above: Performed By: #### P T, PTT #### [facility] [address] [address] [address] Rey Stewart Glucose [Mass/Vol] 77 mg/dL Normal 74-106 [facility] Comment on above: Performed By: #### P T, PTT #### [facility] [address] [address] [address] Rey Stewart Potassium [Moles/Vol] 3.6 mmol/L Normal 3.5-5.1 [facility] Comment on above: Performed By: #### P T, PTT #### [facility] [address] [address] [address] Rey Stewart Sodium [Moles/Vol] 139 mmol/L Normal 136-145 [facility] Comment on above: Performed By: #### P T, PTT #### [facility] [address] [address] [address] Rey Stewart Urea nitrogen [Mass/Vol] 26.0 mg/dL Critically high 7.0-18.0 [facility] Comment on above: Performed By: #### P T, PTT #### [facility] [address] [address] [address] Rey Stewart Urea nitrogen/Creatinin e [Mass ratio] 30.6 mg/mg Normal [facility] Comment on above: Performed By: #### P T, PTT #### [facility] [address] [place] [address] HEAD WO CONon [...] HARPREET QUINTERO Date: 2021-11-10 14:[address] [facility] PROTIMEon 11-10-2021 INR Coag (PPP) [Relative time] 2.75 {INR} Normal [facility] Comment on above: Performed By: #### P T, PTT #### [facility] [address] [place] [address] Dr. Rey Stewart INR GUIDELINES SEE BELOW Normal [facility] Comment on above: Result Comment: MOUNIKA RED INR: 2.0 - 3.0 CONDITIONS NOT LISTED BELOW 2.5 - 3.5 FOR PROSTHETIC HEART VALVE REPLACEMENT 2.5 - 3.5 RECURRENT THROMBOSIS Performed By: #### P T, PTT #### [facility] [address] [place] [address] Dr. Rey Stewart PT Coag (PPP) [Time] 27.8 s Critically high 9.0-11.[address] [facility] Comment on above: Performed By: #### P T, PTT #### [facility] [address] [place] [address] Dr. Rey Stewart PTTon 11-10-2021 aPTT Coag (Bld) [Time] 48.4 s Critically high 22.3-36.[address] [facility] Comment on above: Performed By: #### P T, PTT #### [facility] [address] [place] [address] Dr. Rey Stewart POTASSIUMon 11-09-2021 Potassium [Moles/Vol] 3.4 mmol/L Critically low 3.5-5.[address] [facility] Comment on above: Performed By: #### B MP #### [facility] [address] [place] [address] Dr. Rey Stewart PROF CHEM 8 (BAS METB)on Anion gap [Moles/Vol] 9.7 mmol/L Normal [facility] Comment on above: Performed By: #### P T, PTT #### [facility] [address] [address] [address] Rey Stewart Calcium [Mass/Vol] 10.2 mg/dL Critically high 8.5-10.1 [facility] Comment on above: Performed By: #### P T, PTT #### [facility] [address] [place] [address] Dr. Rey Stewart Chloride [Moles/Vol] 98 mmol/L Normal 98-[address] [facility] Comment on above: Performed By: #### P T, PTT #### [facility] [address] [place] [address] Dr. Rey Stewart CO2 [Moles/Vol] 36.0 mmol/L Critically high 21.0-32.0 [facility] Comment on above: Performed By: #### P T, PTT #### [facility] [address] [place] [address] Dr. Rey Stewart Creatinine [Mass/Vol] 0.99 mg/dL Normal 0.55-1.02 [facility] Comment on above: Performed By: #### P T, PTT #### [facility] [address] [place] [address] Dr. Rey Stewart EGFR-AF JAPANESE >60 Normal >=60 [facility] Comment on above: Performed By: #### P T, PTT #### [facility] [address] [place] [address] Dr. Rey Stewart EGFR-NON AF JAPANESE 56 mL/min/1.73m2 Critically low >=[address] [facility] Comment on above: Performed By: #### P T, PTT #### [facility] [address] [place] [address] Dr. Rey Stewart Glucose [Mass/Vol] 98 mg/dL Normal 74-106 [facility] Comment on above: Performed By: #### P T, PTT #### [facility] [address] [place] [address] Dr. Rey Stewart Potassium [Moles/Vol] 2.6 mmol/L Critically low 3.5-5.1 [facility] Comment on above: Performed By: #### P T, PTT #### [facility] [address], [place] [address] Dr. Rey Stewart Sodium [Moles/Vol] 139 mmol/L Normal 136-145 [facility] Comment on above: Performed By: #### P T, PTT #### [facility] [address] [address] [address] Rey Stewart Urea nitrogen [Mass/Vol] 37.0 mg/dL Critically high 7.0-18.0 [facility] Comment on above: Performed By: #### P T, PTT #### [facility] [address], [place] [address] Dr. Rey Stewart Urea nitrogen/Creatinin e [Mass ratio] 37.4 mg/mg Normal [facility] Comment on above: Performed By: #### P T, PTT #### [facility] [address] [address] [address] Rey Stewart Office Visit (Cardiology)on 11-01-2021 [...] Weight Tips; Status:Complete - Retrospective Authorization; Done: 01Nov2021 Some eating tips that can help you lose weight.; Status:Complete - Retrospective Authorization; Done: 01Nov2021 SocHx: Former smoker Tobacco Use Screening; Status:Complete; Done: 01Nov2021 Unlinked Stop: metOLazone 5 MG Oral Tablet [...] therapy managed by the Coumadin clinic at [facility]. She does have chronic lower extremity edema [...] Coumadin managed by the Coumadin clinic at [facility]. We agreed to pursue rate control versus [...] no bleeding problems. 6?nuclear stress test in [place] several years ago was normal, no need [...] 2.5 MG [facility] (more content not included)... Normal basno Tobacco Screening.on 022 Fall risk assessment a) No falls within the last year [facility] [employer] DO Work Phone: Tobacco use status CP b) No [facility] [employer] 250 DO Work Phone: Tobacco Screening.on 022 Adult depression screening assessment No [facility] [employer] 250 DO Work Phone: Fall risk assessment a) No falls within the last year [facility] [employer] 250 DO Work Phone: Tobacco use status CPHS b) No [facility] [employer] 250 DO Work Phone: Vital Signs Date Time Vital Sign Value Performing Clinician Facility 05-13-2023 14:42-0500 Diastolic blood pressure 60 mm[Hg] Corey Prabhakar MD Work Phone: [facility] 05-13-2023 14:42-0500 Systolic blood pressure 110 mm[Hg] Corey Prabhakar MD Work Phone: [facility] 05-13-2023 14:20-0500 Body height 165.1 cm Corey Prabhakar MD Work Phone: [facility] 05-13-2023 14:20-0500 Body mass index (BMI) [Ratio] 39.94 kg/m2 Corey Prabhakar MD Work Phone: [facility] 05-13-2023 14:20-0500 Body weight 108.86 kg Corey Prabhakar MD Work Phone: [facility] 05-13-2023 14:20-0500 Heart rate 56 /min Corey Prabhakar MD Work Phone: [facility] 04-17-2023 14:08-0500 Body height 162.6 cm Noel Farnsworth MD Work Phone: [facility] 04-17-2023 14:08-0500 Body mass index (BMI) [Ratio] 41.37 kg/m2 Noel Farnsworth MD Work Phone: [facility] 04-17-2023 14:08-0500 Body temperature 98.71 [degF] Noel Farnsworth MD Work Phone: [facility] 04-17-2023 14:08-0500 Body weight 109.32 kg Noel Farnsworth MD Work Phone: [facility] 04-17-2023 14:08-0500 Diastolic blood pressure 80 mm[Hg] Noel Farnsworth MD Work Phone: [facility] 04-17-2023 14:08-0500 Heart rate 82 /min Noel Farnsworth MD Work Phone: [facility] 04-17-2023 14:08-0500 SaO2% (BldA) [Mass fraction] 98 % Noel Farnsworth MD Work Phone: [facility] 04-17-2023 14:08-0500 Systolic blood pressure 128 mm[Hg] Noel Farnsworth MD Work Phone: [facility] 10-23-2022 11:59-0400 Body height 165.1 cm Noel Farnsworth Work Phone: [facility] [employer] 250 DO Work Phone: 10-23-2022 11:59-0400 Body mass index (BMI) [Ratio] 39.44 kg/m2 Noel Farnsworth Work Phone: [facility] 250 DO Work Phone: 10-23-2022 11:59-0400 Body surface area Derived from formula 2.13 m2 Noel Farnsworth Work Phone: [facility] DO Work Phone: 10-23-2022 11:59-0400 Body weight 107.5 kg Noel Farnsworth Work Phone: [facility] 250 DO Work Phone: 10-23-2022 11:59-0400 Diastolic blood pressure 68 mm[Hg] Noel Farnsworth Work Phone: [facility] DO Work Phone: 10-23-2022 11:59-0400 Heart rate 72 /min Noel Farnsworth Work Phone: [facility] DO Work Phone: 10-23-2022 11:59-0400 Systolic blood pressure 110 mm[Hg] Noel Farnsworth Work Phone: [facility] DO Work Phone: 11-01-2021 09:33-0400 Body height 165.1 cm Corey Prabhakar MD Work Phone: [facility] DO Work Phone: 11-01-2021 09:33-0400 Body mass index (BMI) [Ratio] 41.81 kg/m2 Corey Prabhakar MD Work Phone: [facility] DO Work Phone: 11-01-2021 09:33-0400 Body surface area Derived from formula 2.18 m2 Corey Prabhakar MD Work Phone: [facility] DO Work Phone: 11-01-2021 09:33-0400 Body weight 113.97 kg Corey Prabhakar MD Work Phone: [facility] DO Work Phone: 11-01-2021 09:33-0400 Diastolic blood pressure 62 mm[Hg] Corey Prabhakar MD Work Phone: [facility] DO Work Phone: 11-01-2021 09:33-0400 Heart rate 60 /min Corey Prabhakar MD Work Phone: [facility] DO Work Phone: 11-01-2021 09:33-0400 Systolic blood pressure 108 mm[Hg] Corey Prabhakar MD Work Phone: [facility] DO Work Phone: 04-26-2021 11:21-0500 Body height 165.1 cm Corey Prabhakar MD Work Phone: [facility] DO Work Phone: 04-26-2021 11:21-0500 Body mass index (BMI) [Ratio] 42.77 kg/m2 Corey Prabhakar MD Work Phone: [facility] DO Work Phone: 04-26-2021 11:21-0500 Body surface area Derived from formula 2.2 m2 Corey Prabhakar MD Work Phone: [facility] DO Work Phone: 04-26-2021 11:21-0500 Body weight 116.58 kg Corey Prabhakar MD Work Phone: [facility] DO Work Phone: 04-26-2021 11:21-0500 Diastolic blood pressure 84 mm[Hg] Corey Prabhakar MD Work Phone: [facility] DO Work Phone: 04-26-2021 11:21-0500 Heart rate 59 /min Corey Prabhakar MD Work Phone: [facility] DO Work Phone: 04-26-2021 11:21-0500 Systolic blood pressure 113 mm[Hg] Corey Prabhakar MD Work Phone: [facility] DO Work Phone: Encounters Encounter Date Encounter Type Care Provider Facility Start: 10-29-2023 End: 10-29-2023 ambulatory ADELAIDA HERRON Not Available Start: 09-23-2023 End: 09-23-2023 ambulatory MARLA STRICKLAND Not Available Start: 09-05-2023 End: 09-05-2023 ambulatory EMILY PARK Not Available Start: 07-30-2023 End: 07-30-2023 ambulatory MARLA STRICKLAND Not Available Start: 07-25-2023 End: 07-25-2023 ambulatory LAZARO BORRERO Not Available Start: 06-18-2023 End: 06-18-2023 ambulatory AUDELIA Batista [facility] Start: 06-04-2023 End: 06-04-2023 ambulatory ADELAIDA HERRON Not Available Start: 05-13-2023 End: 05-13-2023 Office outpatient visit 25 minutes Corey Prabhakar MD Work Phone: [facility] Comment on above: Permanent atrial fib rillation with RVR (CMS/HCC) (Primary Dx); Essential hypertension; Hypokalemia; BMI 39.0-39.9,adult; Former smoker; Obstructive sleep apnea; High risk medication use Start: 04-17-2023 End: 04-17-2023 Office outpatient visit 15 minutes Noel Farnsworth MD Work Phone: [facility] Comment on above: Acute non-recurrent sinusitis, unspecified location Start: 04-17-2023 End: 04-17-2023 ambulatory NOEL FARNSWORTH Not Available Start: 04-17-2023 Bamboo flowsheet Noel martel MD Work Phone: [facility] Start: 04-17-2023 Bamboo flowsheet Noel martel MD Work Phone: [facility] Start: 04-10-2023 End: 04-10-2023 ambulatory NOEL FARNSWORTH Not Available Start: 03-25-2023 End: 03-25-2023 ambulatory Noel Farnsworth Facility:[facility] Start: 03-25-2023 End: 03-25-2023 ambulatory II Noel Farnsworth Work Phone: [facility] Work Phone: Start: 03-25-2023 End: 03-25-2023 Patient encounter procedure II Noel Farnsworth Work Phone: [facility] Work Phone: Start: 03-07-2023 End: 03-07-2023 Patient encounter procedure II Noel Farnsworth Work Phone: [facility] Work Phone: Start: 03-01-2023 End: 03-01-2023 ambulatory HARPREET BROOKE Not Available Start: 02-20-2023 End: 02-20-2023 ambulatory Noel Farnsworth Facility:[facility] Start: 02-20-2023 End: 02-20-2023 ambulatory II Noel Farnsworth Work Phone: [facility] Work Phone: Start: 02-20-2023 End: 02-20-2023 Patient encounter procedure II Noel Farnsworth Work Phone: [facility] Work Phone: Start: 02-15-2023 End: 02-15-2023 ambulatory SHERLYN RUCKER Not Available Start: 02-14-2023 End: 02-14-2023 ambulatory LAZARO Espino RUKHSANA Not Available Start: 02-13-2023 End: 02-13-2023 ambulatory HARPREET Snow EDWARDO Not Available Start: 01-29-2023 End: 01-29-2023 ambulatory HARPREET Snow EDWARDO Not Available Start: 01-24-2023 End: 01-24-2023 ambulatory HARPREET Snow EDWARDO Not Available Start: 11-20-2022 Telephone encounter Noel navarretey Work Phone: [facility] DO Work Phone: Start: 11-13-2022 End: 11-14-2022 ambulatory Noel Farnsworth Facility:[facility] Start: 10-23-2022 Office outpatient vi sit 25 minutes Noel Farnsworth Work Phone: [facility] DO Work Phone: Start: 10-23-[address] Corey Prabhakar Facility: Start: 08-02-2022 End: 08-03-[address] NOEL FARNSWORTH Facility:[facility] Start: 07-09-2022 End: 08-08-2022 ambulatory SHAIKH Connie MURILLO Facility:[facility] Start: 06-11-2022 End: 07-06-2022 ambulatory SHAIKH Connie MURILLO Facility:[facility] Start: 06-05-2022 End: 06-06-2022 ambulatory AUDELIA HOOD Facility:[facility] Start: 05-09-[address] Corey Prabhakar Facility: Start: 05-09-2022 End: 03-31-2023 ambulatory KOCH H FAWWAD Facility:[facility] Start: 04-24-2022 End: 04-25-2022 ambulatory PETER LAJOEY Facility:[facility] Start: 04-11-2022 End: 05-09-2022 ambulatory KOCH H FAWWAD Facility:[facility] Start: 03-12-2022 End: 04-11-2022 ambulatory KOCH H FAWWAD Facility:[facility] Start: 02-08-2022 End: 03-11-2022 ambulatory KOCH H FAWWAD Facility:[facility] Start: 02-05-2022 End: 02-06-2022 ambulatory DEEPIKA JOHNSON Facility:[facility] Start: 02-05-2022 End: 02-06-[address] DOCTOR KIDD Facility:[facility] Start: 01-17-2022 End: 01-17-2022 ambulatory II Noel Farnsworth Work Phone: [facility] Work Phone: Start: 01-17-2022 End: 01-17-2022 Patient encounter procedure II Noel Farnsworth Work Phone: [facility] Start: 01-09-2022 End: 02-07-2022 ambulatory SHAIKH Connie KIRBYWAD Facility:[facility] Start: 12-25-2021 End: 12-25-2021 ambulatory II Noel Farnsworth Work Phone: [facility] Work Phone: Start: 12-25-2021 End: 12-25-2021 Discharged Recurring II Noel Farnsworth Work Phone: [facility] Start: 12-25-2021 Registered Recurring II Noel Farnsworth Work Phone: [facility] [address] Start: 12-10-2021 End: 01-08-2022 ambulatory KOCH Connie FAWWAD Facility:[facility] Start: 11-28-2021 Rx Renewal Corey Prabhakar MD Work Phone: [facility] DO Work Phone: Start: 11-19-2021 Encounter for genera l adult medical examination without abnormal findings DR COREY PRABHAKAR [facility] Start: 11-14-2021 End: 11-15-[address] NOEL FARNSWORTH Facility:[facility] Start: 11-14-2021 End: 11-15-2021 Encounter for general adult medical examination without abnormal findings DR NOEL FARNSWORTH Facility:[facility] Start: 11-10-2021 End: 11-10-[address] NOEL FARNSWORTH Facility:[facility] Start: 11-09-2021 End: 11-10-[address] NOEL FARNSWORTH Facility:[facility] Start: 11-09-2021 End: 12-09-2021 ambulatory SHAIKH Connie MURILLO Facility:[facility] Start: 11-06-2021 Telephone encounter Corey dawkins MD Work Phone: [facility] DO Work Phone: Start: 11-06-2021 End: 11-07-[address] NOEL FARNSWORTH Facility:[facility] Start: 11-01-2021 Office outpatient vi sit 25 minutes Corey Prabhakar MD Work Phone: [facility] DO Work Phone: Start: 10-09-2021 End: 11-08-2021 ambulatory SHAIKH Connie MURILLO Facility:[facility] Start: 09-15-2021 End: 09-16-[address] NOEL FARNSWORTH Facility:[facility] Start: 09-08-2021 End: 10-06-2021 ambulatory SHAIKH Connie MURILLO Facility:[facility] Start: 07-26-2021 Rx Renewal Corey Prabhakar MD Work Phone: [facility] DO Work Phone: Start: 04-26-2021 Office outpatient vi sit 25 minutes Corey Prabhakar MD Work Phone: [facility] DO Work Phone: Start: 04-26-2021 Patient encounter procedure Corey Prabhakar MD Work Phone: [facility] DO Work Phone: Start: 12-09-2017 End: 12-10-2017 Patient encounter procedure DEFAULT PHYSICIAN Facility:[facility] Start: 09-16-2017 End: 09-17-2017 Patient encounter procedure STEPHANIE BRO CAVAZOS Facility:[facility] Procedures Date Procedure Procedure Detail Performing Clinician Start: 03-25-2023 Dual energy X-ray absorptiometry II Noel Farnsworth Work Phone: Start: 02-20-2023 Screening mammograph y of bilateral breasts II Noel Farnsworth Work Phone: Start: 01-17-2022 End: 01-17-2022 Screening mammography of bilateral breasts II Noel Javad Work Phone: Start: 03-30-2020 Colonoscopy Noel read [...] 03-28-2025 Screening for osteoporosis Bone Density Scan [facility] Start: 03-18-2024 End: 03-18-2024 Patient encounter procedure 03/18/2024 9:45 AM EST Office Visit [facility] [address] [place] [address] Sherlyn Rucker, DO [address] [place] [address] [facility] Start: 02-16-2024 Medicare Annual Wellness (AWV) Medicare Annual Wellness (AWV) [facility] Start: 11-28-2023 End: 11-28-2023 Patient encounter procedure 11/28/2023 9:30 AM EDT Office Visit [facility] [address] [place] [id number] Corey Prabhakar MD [address] [place] [address] [facility] Start: 10-29-2023 End: 10-29-2023 Patient encounter procedure 10/29/2023 9:30 AM EDT Office Visit [facility] [address] [place] [id number] Adelaida Herron NP [address] [facility] [address] [place] [address] [facility] Start: 10-13-2023 End: 05-12-2024 Basic metabolic 2000 panel - Serum or Plasma Basic Metabolic Panel Lab Routine Permanent atrial fibrillation with RVR (CMS/HCC) Essential hypertension Hypokalemia Expected: 10/13/2023, Expires: 05/12/2024 [email or web address] Service Area Work Phone: Comment on above: Expected: 10/13/2023 , Expires: 05/12/2024 Start: 10-13-2023 End: 05-12-2024 CBC panel - Blood by Automated count CBC Lab Routine Permanent atrial fibrillation with RVR (CMS/HCC) Essential hypertension Hypokalemia Expected: 10/13/2023, Expires: 05/12/2024 [facility] Work Phone: Comment on above: Expected: 10/13/2023 , Expires: 05/12/2024 Start: 07-25-2023 End: 07-25-2023 Patient encounter procedure 07/25/2023 9:30 AM EDT Office Visit [facility] [address] [place] [address] Lazaro Borrero DO [address] [place] [address] [facility] Start: 05-01-2023 End: 05-01-2023 Patient encounter procedure 05/01/2023 9:30 AM EST Office Visit [facility] [address] [facility] [address] [place] [phone] Noel Farnsworth MD [address] [facility] [address] [place] [address] [facility] Start: 04-24-2023 FUV, Provider: Corey Prabhakar, Status: Pen, Time: 9:30 AM FUV, Provider: Corey Prabhakar, Status: Pen, Time: 9:30 AM [facility] 250 DO Work Phone: Start: 04-17-2023 End: 04-17-2023 Patient encounter procedure 04/17/2023 2:15 PM EST Office Visit [facility] [address] [facility] [address] [place] [address] Noel Farnsworth MD [address] [facility] [address] [place] [address] Arrived [facility] Comment on above: Arrived Start: 01-17-2023 Screening for malign ant neoplasm of breast Mammogram [facility] Start: 11-09-2022 COVID-19 Vaccine ( season) COVID-19 Vaccine ( season) [facility] Start: 11-09-2022 Influenza vaccination Influenza Vacc ine (#1) [facility] Start: 05-09-2022 FUV, Provider: Corey Prabhakar, Status: Pen, Time: 9:20 AM FUV, Provider: Corey Prabhakar, Status: Pen, Time: 9:20 AM [facility] 250 DO Work Phone: Start: 11-01-2021 FUV, Provider: Corey Prabhakar, Status: Pen, Time: 9:30 AM FUV, Provider: Corey Prabhakar, Status: Pen, Time: 9:30 AM [facility] 250 DO Work Phone: Start: 09-22-2019 Pneumococcal Vaccine : 65+ Years (1 - PCV) Pneumococcal Vaccine: 65+ Years (1 - PCV) [facility] Start: 2004 Zoster Vaccines (1 o f 2) Zoster Vaccines (1 of 2) [facility] Start: 1976 DTaP/Tdap/Td Vaccine s (1 - Tdap) DTaP/Tdap/Td Vaccines (1 - Tdap) [facility] Start: 1972 Diabetes mellitus screening Diabetes Screening [facility] Start: 1972 Hepatitis C screening Hepatitis C [facility] Start: 1960 Pneumococcal Vaccine : 65+ Years (1 - PCV) Pneumococcal Vaccine: 65+ Years (1 - PCV) [facility] Start: 1954 Lipid panel Lipid Panel [facility] Start: 1954 Medicare Annual Wellness Visit Medicare Annual Wellness Visit (AWV) [facility] Start: 1954 Screening for malign ant neoplasm of colon [facility] Immunizations Immunization Date Immunization Notes Care Provider Fa cility 02-14-2021 Pfizer-BioNTech COVID-19 Vacc 30 MCG/0.3ML Intramuscular Suspension Corey Prabhakar MD Work Phone: [facility] 06-30-2020 Pfizer-BioNTech COVID-19 Vacc 30 MCG/0.3ML Intramuscular Suspension Corey Prabhakar MD Work Phone: [facility] 250 DO Work Phone: 06-07-2020 Pfizer-BioNTech COVID-19 Vacc 30 MCG/0.3ML Intramuscular Suspension Corey Prabhakar MD Work Phone: [facility] 01-07-2012 influenza, seasonal, injectable, preservative free Noel Farnsworth MD Work Phone: [facility] 01-07-2012 influenza virus vaccine, unspecified formulation Noel Farnsworth MD Work Phone: [facility] Payers Date Payer Category Payer Unknown [id number] 2022 Self-pay [id number] 2022 Medicare [id number] 2020 Unknown 1959 Medicare [id number] 1959 Medicare [id number] 1959 Private Health Insurance [facility] [id number] 1959 Unknown [id number] 1959 Unknown [id number] 1954 Unknown [id number] 2.16.8 40.1.069835.3.579.2.647 1954 Unknown [id number] 2.16.8 40.1.631351.3.579.2.647 1954 Unknown [id number] 2.16.84 0.1.180595.3.579.2.593 1954 Unknown [id number] 2.16.84 0.1.397090.3.579.2.593 1954 Unknown [id number] 2.16.84 0.1.350940.3.579.2.593 1954 Unknown [id number] 2.16.84 0.1.656236.3.579.2.593 1954 Unknown [id number] 2.16.84 0.1.258438.3.579.2.593 1954 Unknown [id number] 2.16.84 0.1.781914.3.579.2.593 1954 Unknown [id number] 2.16.84 0.1.194990.3.579.2.593 1954 Unknown [id number] 2.16.84 0.1.245626.3.579.2.593 1954 Unknown [id number] 2.16.84 0.1.011586.3.579.2.593 1954 Unknown [id number] 2.16.84 0.1.991694.3.579.2.593 1954 Unknown [id number] 2.16.84 0.1.874938.3.579.2.593 1954 Unknown [id number] 2.16.84 0.1.119990.3.579.2.593 1954 Unknown [id number] 2.16.84 0.1.656324.3.579.2.593 1954 Unknown [id number] 2.16.84 0.1.432494.3.579.2.593 1954 Unknown [id number] 2.16.84 0.1.998797.3.579.2.593 1954 Unknown [id number] 2.16.84 0.1.832779.3.579.2.593 1954 Unknown [id number] 2.16.84 0.1.798097.3.579.2.593 1954 Unknown [id number] 2.16.84 0.1.000341.3.579.2.593 1954 Unknown [id number] 2.16.84 0.1.681173.3.579.2.593 1954 Unknown [id number] 2.16.84 0.1.079185.3.579.2.593 1954 Unknown [id number] 2.16.84 0.1.744998.3.579.2.593 1954 Unknown [id number] 2.16. 840.1.684195.3.579.2.356 1954 Unknown [id number] 2.16. 840.1.393516.3.579.2.356 1954 Unknown [id number] 2.16.8 40.1.724849.3.579.2.1286 1954 Unknown [id number] 2.16.84 0.1.605394.3.579.2.125 1954 Unknown [id number] 2.16.84 0.1.698638.3.579.2.1258 1954 Unknown [id number] 2.16.84 0.1.547014.3.579.2.1258 1954 Unknown [id number] 2.16.84 0.1.059691.3.579.2.1258 1954 Unknown [id number] 2.16.84 0.1.868522.3.579.2.1258 1954 Unknown [id number] 2.16.84 0.1.166436.3.579.2.1258 1954 Unknown [id number] 2.16.84 0.1.078233.3.579.2.9 1954 Unknown [id number] 2.16.84 0.1.515344.3.579.2.1258 1954 Unknown [id number] 2.16.840 .1.564426.3.579.2.1258 1954 Unknown [id number] 2.16.840 .1.527663.3.579.2.1258 1954 Unknown [id number] 2.16.840 .1.267293.3.579.2.1258 1954 Unknown [id number] 2.16.840 .1.816417.3.579.2.1258 1954 Unknown [id number] 2.16.840 .1.252776.3.579.2.1259 1954 Unknown [id number] 2.16.840 .1.258232.3.579.2.1259 [facility] [id number] Medicare [id number] Unknown [id number] 2.16.8 40.1.783483.3.579.2.531 Unknown [id number] 2.16.8 40.1.597984.3.579.2.531 Unknown [id number] 2.16.8 40.1.134092.3.579.2.531 Social History Date Type Detail Facility Start: 04-17-2023 End: 05-13-2023 Social alcohol use Social alcohol use [facility] Start: 1955 Sex Assigned At Female F [facility] Start: 10-18-2022 Tobacco smoking stat [facility] Never smoked tobacco [facility] Start: 10-18-2022 Tobacco use and exposure Smokeless tobacco non-user [facility] Start: 04-10-2023 End: 04-17-2023 Alcohol intake Lifetime non-drinker (finding) [facility] Start: 04-17-2023 End: 05-13-2023 Tobacco use panel [facility] Start: 08-17-2022 Alcohol Comment caffeine: none [facility] Start: 1955 Sex Assigned At Not on file [facility] Start: 05-13-2023 [facility] Work Phone: End: 03-11-1981 History of tobacco use Current smoker [facility] Work Phone: End: 03-11-1981 History of tobacco use Cigarette Smoker [facility] Work Phone: Start: 05-13-2023 Alcohol intake Current drinke r of alcohol (finding) [facility] Work Phone: Start: 03-28-2023 Alcohol Comment social [facility] Work Phone: Start: 05-03-2023 End: 05-13-2023 Exposure to SARS-CoV-2 (event) Not sure [facility] History of Present illness Narrative 05-13-2023 [...] Coumadin managed by the Coumadin clinic at [facility]. 2-essential hypertension under control on metoprolol. 3- history of severe lower extremity edema and Neurontin event resolved on medical therapy. We will continue triple diuretics and follow renal function closely.. 4-morbid obesity status post bariatric surgery but remains in class II obesity, more aggressive weight loss was recommended 5-high risk medication with anticoagulation with no bleeding problems. 6-nuclear stress test in [place] several years ago was normal, no need [...] tablet, Take by mouth. As directed by [place] [facility], Disp: , Rfl: zinc gluconate [...] Attestation By signing my name below, I, Dianne Staley LPN , Dhruv attest that this documentation has been prepared [...] discussion and plan. documented in this encounter [facility] Work Phone: Instructions 05-13-2023 Patient Instructions [...] on dietary changes. documented in this encounter [facility] Work Phone: History of Present illness [...] the morning. cholecalciferol (Vitamin D-3) 1.25 MG (61633 UT) capsule Take one capsule daily 100 [...] 500 mg by mouth in the morning. [place]-3 Fatty Acids (Fish Oil) 1200 MG capsule [...] fail to improve. documented in this encounter [facility] Clinical Note 11-10-2021 Note Date & Type [...] by: HARPREET QUINTERO Date: 2021-11-10 14:[address] [facility] Clinical Note 09-15-2021 Note Date & Type [...] authenticated by: BETY GIORDANO Date: 2021-09-15 16:00 [facility] Evaluation note Note Date & Type Note Facility Evaluation note [facility]: Evaluation note Note Date & Type Note Facility Evaluation note Diagnosis Acute non-recurrent sinusitis, unspecified location documented in this encounter [facility] Evaluation note Note Date & Type Note Facility Evaluation note Diagnosis Permanent atrial fibrillation with RVR (CMS/HCC)- Primary Essential hypertension Unspecified essential hypertension Hypokalemia Hypopotassemia BMI 39.0-39.9,adult Former smoker Personal history of tobacco use, presenting hazards to health Obstructive sleep apnea Obstructive sleep apnea (adult) (pediatric) High risk medication use documented in this encounter [facility] Work Phone: Reason for referral (narrative) Consultation (Routine) - Authorized Note Date & Type Note Facility Reason for referral (narrati ve) Specialty Diagnoses / Procedures Referred By Contac t Referred To Contact Cardiology Diagnoses Permanent atrial fibrillation with RVR (CMS/HCC) Procedures Follow Up In Cardiology Corey Prabhakar MD [address] [place] [address] 2, [address] [address] Corey Prabhakar MD [address] [place] [address] 2, [address] [address] Referral ID Status Reason Start Date Expiration Date V isits Requested Visits Authorized [id number] Authorized 05/13/2023 05/12/2024 1 1 [facility] Work Phone: Summary Purpose Family History No Family History Records FoundUnknown Family Member Name Dates Details Family history [...] can cer: Brother(V16.0, Z80.0) Status:Active Advance Directives No Advanced Directives Records Found Advance Directive Response Recorded Date/ Time Advance [...] Coumadin managed by the Coumadin clinic at [facility]. We agreed to pursue rate control versus [...] problems. * 6 nuclear stress test in [place] several years ago was normal, no need to repeat. * 7 sleep apnea intolerant to CPAP machine. * MARLA FIGUEREDO is being seen for a 6 month follow-up of. * Patient is in the office for follow-up for the problems noted below. She continues to have chronic atrial fibrillation managed with rate control and [facility] She does have chronic lower extremity edema [...] Coumadin managed by the Coumadin clinic at [facility]. We agreed to pursue rate control versus [...] problems. * 6 nuclear stress test in [place] several years ago was normal, no need [...] fibrillation managed by the Coumadin clinic at [facility]. Her weight is couple pounds below her [...] Coumadin managed by the Coumadin clinic at [facility]. * 2 essential hypertension under control on [...] problems. * 6 nuclear stress test in [place] several years ago was normal, no need [...] fibrillation managed by the Coumadin clinic at [facility]. Her weight is couple pounds below her [...] Coumadin managed by the Coumadin clinic at [facility]. * 2 essential hypertension under control on [...] problems. * 6 nuclear stress test in [place] several years ago was normal, no need [...] section and content) DATE CREATED AUTHOR 07/29/2018 [facility] DATE CREATED AUTHOR AUTHOR'S ORGANIZ ATION 08/17/2022 [facility] DATE CREATED AUTHOR AUTHOR'S ORGANIZ ATION 10/24/2022 [employer] DATE CREATED AUTHOR AUTHOR'S ORGANIZ ATION 12/23/2022 [facility] DATE CREATED AUTHOR AUTHOR'S ORGANIZ ATION 04/19/2023 [facility] DATE CREATED AUTHOR AUTHOR'S ORGANIZ ATION 06/19/2023 [facility] DATE CREATED AUTHOR AUTHOR'S ORGANIZ ATION 10/30/2023 [facility] Care Teams (unrecognized sec tion and content) [...] MD Primary Care Provider, Attending Provider Active Mumps Developer Relationship Specialty Start Date End Date Noel Farnsworth MD [address] [facility] [facility] [address] [place] [address] PCP - General Internal Medicine 08/14/22 Mumps Developer Relationship Specialty Start Date End Date Noel Farnsworth MD [address] [facility] [address] [place] [address] PCP - General Internal Medicine 08/14/22 Mumps Developer Relationship Specialty Start Date End Date Noel Farnsworth MD [address] [facility] [address] [place] [address] PCP - General 10/19/22 Goals (unrecognized section [...] BE BASED ON THE PRIMARY CLINICAL RECORDS. [facility]. provides no warranty or guarantee of the accuracy or completeness of information in this document.
[2023-11-01 08:50] LABS: Basophils Percent Auto 0.2 % (0.2-2.0); Eosinophils Percent Auto 0.3 % (0.9-7.0); Hemoglobin 11.7 g/dL (12.0-16.0); Immature Granulocytes Abs Auto 0.03 10^3/uL (0.00-0.03); Immature Granulocytes Pct Auto 0.3 % (0.0-0.5); Lymphocytes Absolute Auto 1.6 10^3/uL (1.2-3.8); Lymphocytes Percent Auto 17.3 % (20.5-60.0); Mean Corpuscular HGB Conc 30.8 g/dL (29.9-35.2); Mean Corpuscular Hemoglobin 28.1 pg (26.7-34.0); Mean Corpuscular Volume 91.3 fL (81.0-99.0); Mean Platelet Volume 10.8 fL (9.5-13.5); Monocytes Absolute Auto 0.6 10^3/uL (0.3-0.8); Monocytes Percent Auto 6.4 % (1.7-12.0); Neutrophils Percent Auto 75.5 % (43.0-75.0); Platelet Count 136 10^3/uL (150-450); Red Blood Count 4.16 10^6/uL (4.20-5.40); Red Cell Distribution Width 13.9 % (11.0-15.0); White Blood Count 9.3 10^3/uL (4.0-11.0)
[2023-11-01 09:50] LABS: Alanine Aminotransferase 27 U/L (14-59); Albumin Level 3.5 g/dL (3.4-5.0); Alkaline Phosphatase 91 U/L (46-116); Anion Gap 11.8; Aspartate Amino Transferase 18 U/L (15-37); BUN Creatinine Ratio 30.5; Bilirubin Total 1.1 mg/dL (0.2-1.0); Calcium 10.5 mg/dL (8.5-10.1); Carbon Dioxide 26.3 mmol/L (21.0-32.0); Chloride 105 mmol/L (98-107); Estimated GFR (African America >60 (>=60); Estimated GFR (Non-African Ame >60 (>=60); Globulin 3.5 g/dL; Glucose 95 mg/dL (74-106); Magnesium 2.1 mg/dL (1.8-2.4); Potassium 4.1 mmol/L (3.5-5.1); Sodium 139 mmol/L (136-145); Thyroid Stimulating Hormone 1.508 uIU/mL (0.358-3.740)
== END 2023-11-01 08:10 | disposition home or self-care (01) ==
LOC: LAB 08:11
PROVIDERS: PCP Internal Medicine; Visit Provider Nurse Practitioner Family
DX: Z00.00 Encounter for general adult medical examination without abnormal findings (principal); I48.91 Unspecified atrial fibrillation; I87.2 Venous insufficiency (chronic) (peripheral); I10 Essential (primary) hypertension; K21.9 Gastro-esophageal reflux disease without esophagitis; J30.2 Other seasonal allergic rhinitis; E87.6 Hypokalemia; E21.0 Primary hyperparathyroidism; E04.2 Nontoxic multinodular goiter; E55.9 Vitamin D deficiency, unspecified
CPT/HCPCS: 36415; 80053; 82306; 83735; 84443; 85025

== ENCOUNTER 2023-11-06 09:56 | Outpatient (OUT) | payer MEDICARE, SELFPAY ==
--- NOTE | 2023-11-06 10:05 | XR_ITS ---
The [address] [address] Patient Name: RODRICK JESSICA MRN: [id number] date: 1955 Sex: F Assigned Patient Location: [facility] Current Patient Location: [facility] Accession/Order Number: [id number] Exam Date: 11/06/2023 10:14 Report Date: 11/06/2023 11:22 At the request of: RODRICK KNIGHT Procedure: XR foot RT min 3V PROCEDURE: XR foot RT min 3V HISTORY: Right Foot Pain M79.671 ; pain and bruising forefoot and toes COMPARISON: None. FINDINGS: BONES:Bunion formation and mild joint space narrowing in first metatarsophalangeal joint. Moderate sized calcaneal plantar spur. No fracture, dislocation, bone lesion. No significant loss of plantar arch. SOFT TISSUES:Prominent soft tissue swelling over distal dorsum of foot. No radiopaque foreign body. EFFUSION:None visible. OTHER: Negative. XR/XR foot RT min 3V IMPRESSION: 1. Bunion formation and mild degenerative joint disease. 2. Dorsal soft tissue swelling of uncertain etiology. Electronically authenticated by: BETY GIORDANO Date: 11/06/2023 11:22
== END 2023-11-06 09:57 | disposition home or self-care (01) ==
LOC: RAD 09:58
PROVIDERS: PCP Internal Medicine; Visit Provider Physician Assistant
DX: M79.671 Pain in right foot (principal); M21.611 Bunion of right foot; M19.071 Primary osteoarthritis, right ankle and foot; Z51.81 Encounter for therapeutic drug level monitoring; Z79.01 Long term (current) use of anticoagulants; I48.20 Chronic atrial fibrillation, unspecified
CPT/HCPCS: 73630; 85610; G0463

== ENCOUNTER 2023-11-11 00:45 | Outpatient (RCR) | payer MEDICARE, SELFPAY | END 2023-12-09 23:49 | disposition home or self-care (01) | LOC: MM 00:45 | PROVIDERS: PCP Internal Medicine; Visit Provider Internal Medicine | DX: Z51.81 Encounter for therapeutic drug level monitoring (principal); Z79.01 Long term (current) use of anticoagulants; I48.20 Chronic atrial fibrillation, unspecified | CPT/HCPCS: 85610; G0463 ==

== ENCOUNTER 2023-12-10 01:18 | Outpatient (RCR) | payer MEDICARE, SELFPAY | END 2024-01-09 23:28 | disposition home or self-care (01) | LOC: MM 01:18 | PROVIDERS: PCP Internal Medicine; Visit Provider Internal Medicine | DX: Z51.81 Encounter for therapeutic drug level monitoring (principal); Z79.01 Long term (current) use of anticoagulants; I48.20 Chronic atrial fibrillation, unspecified | CPT/HCPCS: 85610; G0463 ==

== ENCOUNTER 2024-01-10 10:10 | Outpatient (RCR) | payer MEDICARE, SELFPAY | END 2024-02-08 23:59 | disposition home or self-care (01) | LOC: MM 10:10 | PROVIDERS: PCP Internal Medicine; Visit Provider Internal Medicine | DX: Z51.81 Encounter for therapeutic drug level monitoring (principal); Z79.01 Long term (current) use of anticoagulants; I48.20 Chronic atrial fibrillation, unspecified | CPT/HCPCS: 85610; G0463 ==

== ENCOUNTER 2024-01-20 08:39 | Outpatient (OUT) | payer MEDICARE, SELFPAY ==
[2024-01-20 09:46] LABS: Basophils Percent Auto 0.5 % (0.2-2.0); Eosinophils Absolute Auto 0.1 10^3/uL (0.0-0.7); Eosinophils Percent Auto 1.5 % (0.9-7.0); Hematocrit 35.2 % (36.0-48.0); Hemoglobin 10.8 g/dL (12.0-16.0); Immature Granulocytes Abs Auto 0.02 10^3/uL (0.00-0.03); Immature Granulocytes Pct Auto 0.3 % (0.0-0.5); Lymphocytes Absolute Auto 1.1 10^3/uL (1.2-3.8); Lymphocytes Percent Auto 17.6 % (20.5-60.0); Mean Corpuscular HGB Conc 30.7 g/dL (29.9-35.2); Mean Corpuscular Hemoglobin 28.5 pg (26.7-34.0); Mean Corpuscular Volume 92.9 fL (81.0-99.0); Mean Platelet Volume 10.7 fL (9.5-13.5); Monocytes Absolute Auto 0.3 10^3/uL (0.3-0.8); Monocytes Percent Auto 5.2 % (1.7-12.0); Neutrophils Absolute Auto 4.6 10^3/uL (1.4-6.5); Neutrophils Percent Auto 74.9 % (43.0-75.0); Platelet Count 124 10^3/uL (150-450); Red Blood Count 3.79 10^6/uL (4.20-5.40); Red Cell Distribution Width 14.2 % (11.0-15.0); White Blood Count 6.2 10^3/uL (4.0-11.0)
[2024-01-20 10:37] LABS: Alanine Aminotransferase 23 U/L (14-59); Albumin Globulin Ratio 0.9; Alkaline Phosphatase 77 U/L (46-116); Anion Gap 13.2; Aspartate Amino Transferase 18 U/L (15-37); BUN Creatinine Ratio 31.9; Calcium 9.9 mg/dL (8.5-10.1); Carbon Dioxide 23.9 mmol/L (21.0-32.0); Chloride 109 mmol/L (98-107); Estimated GFR (African America >60 (>=60 mL/min/1.73m^2); Estimated GFR (Non-African Ame >60 (>=60 mL/min/1.73m^2); Globulin 3.3 g/dL; Glucose 91 mg/dL (74-106); Magnesium 2.2 mg/dL (1.8-2.4); Phosphorus 2.8 mg/dL (2.6-4.7); Potassium 4.1 mmol/L (3.5-5.1); Sodium 142 mmol/L (136-145); Total Protein 6.3 g/dL (6.4-8.2)
[2024-01-20 10:53] LABS: Percent Iron Saturation 21.9 %
[2024-01-21 04:08] LABS: Vitamin B12 826 pg/mL (232-1245)
[2024-01-23 14:11] LABS: Vitamin B1 (Thiamine), Blood 193.7 nmol/L (66.5-200.0)
[2024-01-24 16:11] LABS: Vitamin A, Serum 51.2 ug/dL (22.0-69.5)
== END 2024-01-20 08:40 | disposition home or self-care (01) ==
LOC: LAB 08:41
PROVIDERS: PCP Internal Medicine
DX: D50.9 Iron deficiency anemia, unspecified (principal); Z98.84 Bariatric surgery status; K90.9 Intestinal malabsorption, unspecified; E55.9 Vitamin D deficiency, unspecified
CPT/HCPCS: 36415; 80053; 82306; 82525; 82607; 82728; 82746; 83540; 83550; 83735; 84100; 84425; 84590; 84630; 85025

== ENCOUNTER 2024-02-09 10:29 | Outpatient (RCR) | payer MEDICARE, SELFPAY | END 2024-03-10 09:05 | disposition home or self-care (01) | LOC: MM 10:29 | PROVIDERS: PCP Internal Medicine; Visit Provider Internal Medicine | DX: Z51.81 Encounter for therapeutic drug level monitoring (principal); Z79.01 Long term (current) use of anticoagulants; I48.20 Chronic atrial fibrillation, unspecified | CPT/HCPCS: 85610; G0463 ==

== ENCOUNTER 2024-03-12 00:10 | Outpatient (RCR) | payer MEDICARE, SELFPAY | END 2024-04-10 15:09 | disposition home or self-care (01) | LOC: MM 00:10 | PROVIDERS: PCP Internal Medicine; Visit Provider Internal Medicine | DX: Z51.81 Encounter for therapeutic drug level monitoring (principal); Z79.01 Long term (current) use of anticoagulants; I48.20 Chronic atrial fibrillation, unspecified | CPT/HCPCS: 85610; G0463 ==

== ENCOUNTER 2024-04-13 02:32 | Outpatient (RCR) | payer MEDICARE, SELFPAY | END 2024-05-08 10:35 | disposition home or self-care (01) | LOC: MM 02:32 | PROVIDERS: PCP Internal Medicine; Visit Provider Internal Medicine | DX: Z51.81 Encounter for therapeutic drug level monitoring (principal); Z79.01 Long term (current) use of anticoagulants; I48.20 Chronic atrial fibrillation, unspecified | CPT/HCPCS: 85610; G0463 ==

== ENCOUNTER 2024-05-10 07:30 | Outpatient (RCR) | payer MEDICARE, SELFPAY | END 2024-06-05 13:37 | disposition home health service (06) | LOC: MM 07:30 | PROVIDERS: PCP Internal Medicine; Visit Provider Internal Medicine | DX: Z51.81 Encounter for therapeutic drug level monitoring (principal); Z79.01 Long term (current) use of anticoagulants; I48.91 Unspecified atrial fibrillation | CPT/HCPCS: 85610; G0463 ==

== ENCOUNTER 2024-06-09 04:17 | Outpatient (RCR) | payer MEDICARE, SELFPAY | END 2024-07-08 15:18 | disposition home or self-care (01) | LOC: MM 04:17 | PROVIDERS: PCP Internal Medicine; Visit Provider Internal Medicine | DX: Z51.81 Encounter for therapeutic drug level monitoring (principal); Z79.01 Long term (current) use of anticoagulants; I48.20 Chronic atrial fibrillation, unspecified | CPT/HCPCS: 85610; G0463 ==

== ENCOUNTER 2024-06-09 09:18 | Outpatient (OUT) | payer MEDICARE, SELFPAY ==
[2024-06-09 10:54] LABS: Alanine Aminotransferase 23 U/L (14-59); Albumin Globulin Ratio 0.9; Albumin Level 3.3 g/dL (3.4-5.0); Alkaline Phosphatase 77 U/L (46-116); Anion Gap 12.2; Aspartate Amino Transferase 25 U/L (15-37); BUN Creatinine Ratio 32.2; Calcium 9.9 mg/dL (8.5-10.1); Carbon Dioxide 27.5 mmol/L (21.0-32.0); Chloride 107 mmol/L (98-107); Estimated GFR (African America >60 (>=60 mL/min/1.73m^2); Estimated GFR (Non-African Ame >60 (>=60 mL/min/1.73m^2); Globulin 3.6 g/dL; Glucose 89 mg/dL (74-106); Potassium 4.7 mmol/L (3.5-5.1); Sodium 142 mmol/L (136-145); Thyroid Stimulating Hormone 2.111 uIU/mL (0.358-3.740); Total Protein 6.9 g/dL (6.4-8.2)
[2024-06-09 11:04] LABS: Free T4 0.95 ng/dL (0.76-1.46)
== END 2024-06-09 09:19 | disposition home or self-care (01) ==
LOC: LAB 09:21
PROVIDERS: PCP Internal Medicine
DX: E55.9 Vitamin D deficiency, unspecified (principal); E03.8 Other specified hypothyroidism
CPT/HCPCS: 36415; 80053; 82306; 84439; 84443

== ENCOUNTER 2024-07-09 04:38 | Outpatient (RCR) | payer MEDICARE, SELFPAY | END 2024-08-08 07:20 | disposition home or self-care (01) | LOC: MM 04:38 | PROVIDERS: PCP Internal Medicine; Visit Provider Internal Medicine | DX: Z51.81 Encounter for therapeutic drug level monitoring (principal); Z79.01 Long term (current) use of anticoagulants; I48.20 Chronic atrial fibrillation, unspecified | CPT/HCPCS: 85610; G0463 ==

== ENCOUNTER 2024-07-23 07:37 | Outpatient (OUT) | payer MEDICARE, SELFPAY ==
--- OUTSIDE RECORDS SUMMARY | 2024-07-23 07:58 | XMS_ITS | CCD ---
Author Organization [facility] Care Team Providers Care Resistance Welder Name Role Phone STEPHANIE CAVAZOS AM Admitting Unavailable STEPHANIE CAVAZOS AM Attending Unavailable NOEL FARNSWORTH Referring Unavailable NOEL FARNSWORTH Primary Care Unavailable PHYSICIAN, DEFAULT Admitting Unavailable PHYSICIAN, DEFAULT Attending Unavailable NOEL FARNSWORTH Primary Care Unavailable Unavailable Unavailable Unavailable Unavailable SALMA Farnsworth Primary Care Provider TANIA Knight Attending Provider DO Sherlyn Rucker Referring Provider GLEN Knight Attending Provider DR NOEL FARNSWORTH Primary Care Unavailable MISC, DR CORTEZ Attending Unavailable MISC, DR CORTEZ Admitting Unavailable MISC, DR CORTEZ Consulting Unavailable FAWWAD, KOCH H Admitting Unavailable FAWWAD, KOCH H Attending Unavailable DR NOEL FARNSWORTH Primary Care Unavailable JAVAD, DR PETERSON Primary Care Unavailable ASHLIE, DR NARAYAN Jeter Admitting Unavailabl e ASHLIE, DR NARAYAN Jeter Attending Unavailabl e LEON, DR HARPREET Conner Consulting Unavailable KHALIDACHNY .KATIE Consulting Unavailabl e JAVAD, DR PETERSON Primary Care Unavailable HACKETT, DR MILY Batista Admitting Unavailable HACKETT, DR MILY Batista Consulting Unavailable HACKETT, DR MILY Batista Attending Unavailable JAVAD, DR PETERSON Primary Care Unavailable HACKETT, DR MILY Batista Consulting Unavailable HACKETT, DR MILY Batista Attending Unavailable HACKETT, DR MILY Batista Admitting Unavailable FAWWAD, KOCH H Admitting Unavailable FAWWAD, KOCH H Attending Unavailable JAVDA, DR PETERSON Primary Care Unavailable FAWWAD, KOCH H Admitting Unavailable FAWWAD, KOCH H Attending Unavailable FARNSWORTH, DR PETERSON Primary Care Unavailable ERWIN, TRUNG Attending Unavailable ERWIN, TRUNG Admitting Unavailable ERWIN, TRUNG Consulting Unavailable FARNSWORTH, DR PETERSON Primary Care Unavailable FAWWAD, KOCH H Attending Unavailable FARNSWORTH, DR PETERSON Primary Care Unavailable FAWWAD, KOCH H Admitting Unavailable FAWWAD, KOCH H Admitting Unavailable FAWWAD, KCOH H Attending Unavailable FARNSWORTH, DR PETERSON Primary Care Unavailable FAWWAD, KOCH H Admitting Unavailable FAWWAD, KOCH H Attending Unavailable FARNSWORTH, DR PETERSON Primary Care Unavailable FAWWAD, KOCH H Admitting Unavailable FAWWAD, KOCH H Attending Unavailable FARNSWORTH, DR PETERSON Primary Care Unavailable FAWWAD, KOHC H Attending Unavailable FARNSWORTH, DR PETERSON Primary [...] DEEPIKA Attending Unavailable LALOR, DEEPIKA Admitting Unavailable LALORDEEPIKA Consulting Unavailable JAVAD, DR PETERSON Primary Care Unavailable FARNSWORTH, DR PETERSON Primary Care Unavailable HACKETT, DR MILY Batista Consulting Unavailable HACKETT, DR MILY Batista Attending Unavailable HACKETT, DR MILY Batista Admitting Unavailable FAWWAD, KOCH H Attending Unavailable FARNSWORTH, DR PETERSON Primary Care Unavailable FAWWAD, KOCH H Admitting Unavailable FarnsworthNoel Unavailable Hackett, Dr. Mily Borrero Attending Soniya vailable Hackett, Dr. Mily Borrero Referring Soniya vailable Farnsworth II, Dr. Noel Payne Primary Care Soniya vailable Hackett, Dr. Mily Borrero Attending Soniya vailable Hackett, Dr. Mily Borrero Referring Soniya vailable Farnsworth II, Dr. Noel Payne Primary Care Soniya vailable Farnsworth, II Noel Primary Care Provider Self, Referral Attending Provider Unavailable SALMA Farnsworth Attending Provider Noel Farnsworth MD Primary Care Provider Noel Farnsworth MD Primary Care Provider TRUNG RICHARDSON Attending Un available NOEL FARNSWORTH Referring Unavailable NOEL FARNSWORTH Primary Care Unavailable Javad MARSH, Noel Primary Care Provider [phone] Sherlyn Rucker DO Attending Provider MILY HACKETT Attending Unavailable NOEL FARNSWORTH Primary Care Unavailable MILY HACKETT Attending Unavailable MILY HACKETT Referring Unavailable NOEL FARNSWORTH Primary Care Unavailable Noel Farnsworth MD Primary Care Provider TRUNG RICE Attending Un available NOEL FARNSWORTH Referring Unavailable NOEL FARNSWORTH Primary Care Unavailable EMILY PARK Attending Unavailable EMILY PARK Attending Unavailable PARKEMILY Attending Unavailable EMILY PARK Attending Unavailable LAZARO MILIAN Attending Unavailable HEMMARLA BOWERS Attending Unavailable LAZARO MILIAN Attending Unavailable HEMMERMARLA Attending Unavailable PARKEMILY Attending Unavailable HEMMERMARLA Attending Unavailable DENISHA GRACIA Attending Unavailable BROWNAVALAZARO Kenzie Referring Unavailable BROWNLAZARO Attending Unavailable HEMMERMARLA Attending Unavailable NOEL FARNSWORTH B Attending Unavailable NOEL FARNSWORTH Attending Unavailable SHERLYN RUCKER Attending Unavailable Sherlyn Rucker Attending Unavailable Noel Farnsworth Primary Care Unavailable Sherlyn Rucker Admitting Unavailable Emily Park Admitting Unavailable Emily Park Attending Unavailable Noel Farnsworth Primary Care Unavailable Allergies Allergy Classification Reported Allergen(s) Allergy Type Date of Onset Reaction(s) Facility (1 source) PARFON-FORTTona; Translations: [PARFON-FORTE] Propensity to adverse reactions (disorder) 11-12-200 9 [facility] Repository (13 sources) Chlorzoxazone; Translations: [Parafon Forte DSC TABS] Drug Allergy 8 Hives, Other (See Comments) [facility] (1 source) Parafon Forte DSC Drug allergy (disorder) 5 [facility] Repository (20 sources) Chlorzoxazone; Translations: [CHLORZOXAZONE] Drug Allergy 8 Hives, Unknown [facility] (20 sources) gabapentin; Translations: [GABAPENTIN] Drug Allergy 1 Unknown, Other (See Comments) [facility] Medications Current Medications Medication Drug Class(es) Dates Sig (Normalized) Sig (Original) amoxicillin 875 mg / clavulanate 125 mg oral tablet (12 sources) Penicillin-class Antibacterial Start: 06-24-2024 End: 07-08-2024 take 1 tablet by mouth in the morning amoxicillin-clav ulanate (Augmentin) 875-125 MG tablet Indications: Acute frontal sinusitis, recurrence not specified Take 1 tablet (875 mg) by mouth in the morning and 1 tablet (875 mg) before bedtime. Do all this for 14 days. 28 tablet 06/24/2024 07/08/2024 Active Start: 04-16-2024 End: 04-30-2024 take 1 tablet by mouth in the morning amoxicillin-clavulanate (Augmentin) 875-125 MG tablet Indications: Acute non-recurrent sinusitis, unspecified location Take 1 tablet (875 mg) by mouth in the morning and 1 tablet (875 mg) before bedtime. Do all this for 10 days. 20 tablet 04/16/2024 04/30/2024 Discontinued (Therapy completed) ascorbic acid 1000 mg oral t ablet (20 sources) Vitamin C Ascorbic Acid (v itamin C) 1000 MG tablet Active Ascorbic Acid (v itamin C) 1000 MG tablet 2 tablets Active aspirin 81 mg delayed release oral tablet (20 sources) Platelet Aggregation Inhibitor, Nonsteroidal Anti-inflammatory Drug take 1 tablet by mouth once daily aspirin 81 MG EC tablet Take 1 tablet by mouth Daily Active azithromycin 250 mg oral tablet (2 sources) Macrolide Antimicrobial Start: End: 02-14-2 024 take 2 tablets by mouth once daily, then take 1 tablet by mouth once daily azithromycin (Zithromax) 250 MG tablet Indications: Acute non-recurrent sinusitis, unspecified location Take 2 tablets (500 mg) by mouth Daily for 1 day, THEN 1 tablet (250 mg) Daily for 6 days. 8 tablet 0 04/17/2023 04/24/2023 Active Bacillus coagulans / Inulin (2 sources) take 1 tablet by mouth once daily BACILLUS COAGULANS-INULIN ORAL Take 1 tablet by mouth once daily. Active take 1 tablet by mouth once key y BACILLUS COAGULANS-INULIN ORAL Take 1 tablet by mouth once daily. 0 Active calcium carbonate 1500 mg oral tablet (20 sources) take 1 tablet by toni th in the morning calcium carbonate 1500 (600 Ca) MG tablet Take 600 mg by mouth in the morning. Active take 1 tablet by mouth once key y calcium carbonate 600 mg calcium (1,500 mg) tablet Take 1 tablet (1,500 mg) by mouth once daily. Active cefdinir 300 mg oral capsule (4 sources) Cephalosporin Antibacterial Start: 02-28-2024 End: 03-12-2024 take 1 capsule by mouth in the morning cefdinir (Omnicef) 300 MG capsule Indications: Acute non-recurrent sinusitis, unspecified location Take 1 capsule (300 mg) by mouth in the morning and 1 capsule (300 mg) before bedtime. Do all this for 7 days. 14 capsule 02/28/2024 03/12/2024 Discontinued (Therapy completed) cephalexin 500 mg oral capsule (5 sources) Cephalosporin Antibacterial Start: 04-30-2024 End: 05-10-2024 take 1 capsule by mouth in the morning, then take 1 capsule by mouth in the evening, then take 1 capsule by mouth at bedtime cephalexin (Keflex) 500 MG capsule Indications: Cellulitis, unspecified cellulitis site Take 1 capsule (500 mg) by mouth in the morning and 1 capsule (500 mg) in the evening and 1 capsule (500 mg) before bedtime. Do all this for 10 days. 30 capsule 04/30/2024 05/10/2024 Active take 1 capsule by mo uth every eight hours Cephalexin 500 MG Oral Capsule TAKE 1 CAPSULE EVERY 8 HOURS UNTIL GONE. Quantity: 0 Refills: 0 Ordered: 01-Nov-2021 DO Active cholecalciferol 1.25 mg oral capsule (20 sources) Vitamin D Start: 06-23-2024 take 1 capsule by mouth in the morning cholecalciferol (VITAMIN D3) 50,000 units capsule Take 1 capsule (50,000 Units total) by mouth in the morning. 100 capsule 3 06/23/2024 Active Start: 06-18-2023 End: 06-23-2024 take 1 capsule by mouth in the morning cholecalciferol (VITAMIN D3) 50,000 units capsule Take 1 capsule (50,000 Units total) by mouth in the morning. 65,000 units. 90 capsule 3 06/18/2023 06/23/2024 Discontinued (Reorder) Start: 02-27-2023 cholecalcifero l (Vitamin D-3) 1.25 MG (63148 UT) capsule Indications: Vitamin D deficiency Take one capsule daily 100 capsule 3 02/27/2023 Active cholecalciferol (Vitamin D-3) 25 MCG (1000 UT) tablet Take 80 tablets (80,000 Units) by mouth once daily. Active copper gluconate 2 mg oral tablet (20 sources) take 1 tablet by toni th in the morning Copper Gluconate 2 MG tablet Take 1 tablet by mouth in the morning. Active cyanocobalamin, vitamin B-12, (VITAMIN B-12 ORAL) (2 sources) take 1 tablet by toni th once daily cyanocobalamin, vitamin B-12, (VITAMIN B-12 ORAL) Take 1 tablet by mouth once daily. Active take 1 tablet by mouth once key y cyanocobalamin, vitamin B-12, (VITAMIN B-12 ORAL) Take 1 tablet by mouth once daily. 0 Active docosahexaenoic acid/epa (FI SH OIL ORAL) (2 sources) take 1400 mg by mouth once daily docosahexaenoic acid/epa (FISH OIL ORAL) Take 1,400 mg by mouth once daily. Active take 1400 mg by mouth once daily docosahexaenoic acid/epa (FISH OIL ORAL) Take 1,400 mg by mouth once daily. 0 Active etodolac 400 mg oral tablet (2 sources) Nonsteroidal Anti-inflammatory Drug Start: 06-15-2024 End: 07-02-2024 take 1 tablet by mouth twice daily as needed etodolac (Lodine) 400 MG tablet Take 400 mg by mouth 2 (two) times a day as needed 06/15/2024 07/02/2024 Discontinued (Therapy completed) famotidine 20 mg oral tablet (20 sources) Histamine-2 Receptor Antagonist Start: 05-04-2020 famotidine (Pepcid) 20 mg tablet Take 1 tablet (20 mg) by mouth as needed at bedtime. 0 05/04/2020 Active ferrous sulfate 325 mg oral tablet (20 sources) Start: 09-14-2022 End: 04-16-2024 take 1 tablet by mouth three times weekly ferrous sulfate 325 (65 Fe) MG tablet Indications: Bariatric surgery status TAKE 1 TABLET BY MOUTH 3 TIMES A WEEK (SATURDAY, SATURDAY,SATURDAY) 36 tablet 3 09/14/2022 04/16/2024 Discontinued (Reorder) Start: 02-09-2020 End: 04-11-2025 take 1 tablet by mouth in the morning ferrous sulfate 325 (65 Fe) MG tablet Indications: Bariatric surgery status Take 1 tablet (325 mg) by mouth in the morning and 1 tablet (325 mg) before bedtime. 60 tablet 11 04/16/2024 04/11/2025 Active Magnesium (20 sources) take 400 mg by mouth once daily MAGNESIUM ORAL Take 400 mg by mouth once daily. Active take 250 mg by mouth in the morn ing MAGNESIUM PO Take 250 mg by mouth in the morning. Active take 1 tablet by mouth once key y magnesium 250 mg tablet Take 1 tablet (250 mg) by mouth once daily. 0 Active take 250 mg by mouth in the morn ing MAGNESIUM PO Take 250 mg by mouth in the morning. 0 Active take 1 tablet by mouth once key y Magnesium 250 MG Oral Tablet TAKE 1 TABLET DAILY. Quantity: 0 Refills: 0 Ordered: 23-Oct-2022 DO Active methylPREDNISolone (3 sources) Corticosteroid Start: 10-29-2023 End: 11-05-2023 methylPREDNISolone (Medrol Dospak) 4 MG tablets Indications: Disorder of left eustachian tube Follow schedule on package instructions 21 tablet 10/29/2023 11/05/2023 Active metoprolol tartrate 25 mg oral tablet (20 sources) beta-Adrenergic Papo Start: 02-27-2023 take 1 tablet by mouth once metoprolol tartrate (Lopressor) 25 MG tablet Indications: Essential hypertension, benign (CMS/HCC) Take 1 tablet (25 mg) by mouth every 12 (twelve) hours 200 tablet 3 02/27/2023 Active Start: 02-09-2020 End: 05-12-2024 take 1 tablet by mouth twice daily metoprolol tartrate (Lopressor) 25 mg tablet Indications: Essential hypertension Take 1 tablet (25 mg) by mouth 2 times a day. 180 tablet 3 05/13/2023 05/12/2024 Active metroNIDAZOLE 500 mg oral tablet (2 sources) Nitroimidazole Antimicrobial Start: 02-07-2023 take 1 tablet by mouth in the morning metroNIDAZOLE (Flagyl) 500 MG tablet Take 500 mg by mouth in the morning. 0 02/07/2023 Active multivitamin capsule (2 sources) take 1 capsule by mouth once daily multivitamin capsule Take 1 capsule by mouth once daily. Active take 1 capsule by mouth once fawad ly multivitamin capsule Take 1 capsule by mouth once daily. 0 Active omega-3 acid ethyl esters (half-way) 1000 mg oral capsule (1 source) End: 11-28-2023 take 1 capsule by mouth once daily omega-3 acid ethyl esters (Lovaza) 1 gram capsule Take 900 mg by mouth once daily. 11/28/2023 Discontinued (Therapy completed) Caldwell-3 Fatty Acids (Fish Oil) 1200 MG capsule delayed-release (20 sources) Caldwell-3 Fatty Ac ids (Fish Oil) 1200 MG capsule delayed-release Active Caldwell-3 Fatty Ac ids (Fish Oil) 1200 MG capsule delayed-release Fish Oil Active Caldwell-3 Fatty Ac ids (Fish Oil) 1200 MG capsule delayed-release Fish Oil 0 Active pantoprazole 40 mg delayed release oral tablet (20 sources) Proton Pump Inhibitor Start: 02-09-2020 take 1 tablet by mouth once daily pantoprazole (ProtoNix) 40 MG EC tablet Indications: Gastroesophageal reflux disease without esophagitis TAKE 1 TABLET BY MOUTH DAILY 100 tablet 3 11/06/2023 Active microencapsulated potassium chloride 20 meq extended release oral tablet (20 sources) Start: 05-03-2023 End: 07-09-2024 take 1 tablet by mouth four times daily potassium chloride CR 20 mEq ER tablet Indications: Hypokalemia Take 1 tablet (20 mEq) by mouth 4 times a day. 360 tablet 3 07/10/2023 07/09/2024 Active Start: 03-20-2023 potassium chlo ride ER (Micro-K) 10 MEQ ER capsule Indications: Essential hypertension, benign (CMS/HCC) TAKE 3 CAPSULES BY MOUTH THREE TIMES DAILY WITH FOOD 300 capsule 3 03/20/2023 Active Start: 05-09-2022 Potassium Chlo ride Carmen ER 20 MEQ Oral Tablet Extended Release take 4 tablets ( 80 meq) daily Quantity: 360 Refills: 3 Ordered: 23-Oct-2022 Mily Hackett MD Start : 09-May-2022 Active new meq Start: 11-06-2021 take 3 tablets by mo ut three times daily Potassium Chloride ER 10 MEQ Oral Tablet Extended Release TAKE 3 TABLETS BY MOUTH 3 TIMES A DAY Quantity: 810 Refills: 3 Ordered: 28-Nov-2021 Mily Hackett MD Start : 06-Nov-2021 Active Start: 02-09-2020 take 2 capsules by m out three times daily Potassium Chloride ER 10 MEQ Oral Capsule Extended Release TAKE 2 CAPSULE 3 times daily Quantity: 0 Refills: 0 Ordered: 30-Apr-2020 DO Start : 09-Feb-2020 Active potassium chlori de 20 mEq tablet extended release Take 1 tablet (20 mEq total) by mouth. Active predniSONE 10 mg oral tablet (4 sources) Start: 07-07-2024 End: 07-16-2024 take 1 tablet by mouth three times daily, then take 1 tablet by mouth twice daily, then take 1 tablet by mouth once daily predniSONE (Deltasone) 10 MG tablet Indications: Right cervical radiculopathy Take 1 tablet (10 mg) by mouth 3 (three) times a day for 3 days, THEN 1 tablet (10 mg) 2 (two) times a day for 3 days, THEN 1 tablet (10 mg) Daily for 3 days. 18 tablet 07/07/2024 07/16/2024 Active Start: 01-03-2024 End: 01-08-2024 take 1 tablet by mouth in the morning predniSONE (Deltasone) 10 MG tablet Indications: Acute URI Take 1 tablet (10 mg) by mouth in the morning and 1 tablet (10 mg) at noon. Do all this for 5 days. Take with breakfast and with lunch. 10 tablet 01/03/2024 01/08/2024 Active spironolactone 25 mg oral tablet (20 sources) Aldosterone Antagonist Start: 04-03-2023 End: 05-12-2024 take 1 tablet by mouth once daily spironolactone (Aldactone) 50 mg tablet Indications: Essential hypertension , Hypokalemia Take 1 tablet (50 mg) by mouth once daily. 90 tablet 3 05/13/2023 11/28/2023 Discontinued (Therapy completed) Start: 05-29-2022 take 2 tablets by mo [facility] in the morning spironolactone (ALDACTONE) 25 mg tablet Take 2 tablets (50 mg total) by mouth in the morning. 05/29/2022 Active Start: 11-06-2021 take 1 tablet by toni once daily spironolactone (Aldactone) 25 mg tablet Indications: Essential hypertension TAKE 1 TABLET BY MOUTH DAILY 90 tablet 3 10/07/2023 Active sulfamethoxazole 800 mg / trimethoprim 160 mg oral tablet (5 sources) Dihydrofolate Reductase Inhibitor Antibacterial, Sulfonamide Antimicrobial Start: 03-12-2024 End: 03-19-2024 take 1 tablet by mouth once in the morning, then take 1 tablet by mouth once at bedtime sulfamethoxazole-trimethoprim (Bactrim DS) 800-160 MG per tablet Indications: Acute non-recurrent sinusitis, unspecified location Take 1 tablet by mouth in the morning and 1 tablet before bedtime. Do all this for 7 days. 14 tablet 03/12/2024 03/19/2024 Active tiZANidine 4 mg oral tablet (2 sources) Central alpha-2 Adrenergic Agonist Start: 07-07-2024 End: 07-17-2024 take 1 tablet by mouth once tiZANidine (Zanaflex) 4 MG tablet Indications: Cervical paraspinal muscle spasm Take 1 tablet (4 mg) by mouth every 12 (twelve) hours if needed for muscle spasms for up to 10 days 20 tablet 07/07/2024 07/17/2024 Active torsemide 20 mg oral tablet (20 sources) Loop Diuretic Start: 10-26-2020 End: 05-12-2024 take 1 tablet by mouth once daily torsemide (Demadex) 20 MG tablet Indications: Edema, unspecified type TAKE 1 TABLET BY MOUTH EVERY DAY 100 tablet 3 11/02/2022 Active turmeric extract 500 mg oral capsule (20 sources) take 1 tablet by mouth in the morning Turmeric 500 MG tablet Take 1 tablet by mouth in the morning. Active take [facility] 500 MG tablet Take 1 tablet by mouth in the morning. 0 Active take 1 tablet by mouth once key y Turmeric 500 MG Oral Tablet one daily Quantity: 0 Refills: 0 Ordered: 09-May-2022 DO Active turmeric root extract 500 mg tablet (2 sources) take 1 tablet by toni th once daily turmeric root extract 500 mg tablet Take 1 tablet by mouth once daily. Active take 1 tablet by mouth once key y turmeric root extract 500 mg tablet Take 1 tablet by mouth once daily. 0 Active warfarin sodium 2.5 mg oral tablet (20 sources) Vitamin K Antagonist Start: 08-24-2020 warfarin (Coumadin) 2.5 mg tablet Take by mouth. As directed by [place] [facility] 08/24/2020 Active Start: 08-24-2020 Warfarin Sodiu m 2.5 MG Oral Tablet [facility] Quantity: 0 Refills: 0 Ordered: 23-Apr-2021 DO Start : 24-Aug-2020 Active warfarin (Coumad in) 5 MG tablet 1 (one) time each day at the same time Active Zinc (2 sources) zinc 100 MG tabl et 1 (one) time each day at the same time. 0 Active zinc gluconate 50 mg oral tablet (20 sources) take 1 tablet by toni th in the morning zinc gluconate 50 MG tablet Take 50 mg by mouth in the morning. Active Completed/Discontinued Medications Medication Drug Class(es) Dates Sig (Normalized) Sig (Original) betamethasone 3 mg/ml / betamethasone acetate 3 mg/ml injectable suspension (8 sources) Corticosteroid Start: 07-02-2024 End: 07-02-2024 betamethasone acetate-betamethason e sodium phosphate (Celestone) injection 12 mg Start: 07-02-2024 End: 07-02-2024 12 mg, Intra-articular, Once PRN Procedure, Starting on Sat07/02/24 at 0957, For 1 dose Start: 01-02-2024 End: 01-02-2024 betamethasone acetate-betame thasone sodium phosphate (Celestone) injection 2 mL Start: 01-02-2024 End: 01-02-2024 2 mL, Intra-articular, Once PRN Procedure, Starting on Ping 10/24/24 at 0918, For 1 dose Fish Oil CAPS (10 sources) Fish Oil CAPS ta ke 1400mg once daily Quantity: 0 Refills: 0 Ordered: 26-Apr-2021 DO Active fluticasone propionate 0.05 mg/actuat metered dose nasal spray (20 sources) Corticosteroid Start: 04-16-2024 End: 07-07-2024 take 2 spray(s) nasal route once daily fluticasone (Flonase) 50 MCG/ACT nasal spray Indications: Acute non-recurrent sinusitis, unspecified location ADMINISTER 2 SPRAYS INTO EACH NOSTRIL DAILY SHAKE GENTLY. BEFORE FIRST USE, PRIME PUMP. AFTER USE, CLEAN TIP AND REPLACE CAP 48 mL 1 05/11/2024 07/07/2024 Discontinued (Duplicate order) Start: 12-05-2022 take 1 spray(s) nasa l route in the morning fluticasone (Flonase) 50 MCG/ACT nasal spray Indications: Acute dysfunction of left eustachian tube Administer 1 spray into each nostril in the morning. Shake gently. Before first use, prime pump. After use, clean tip and replace cap.. 16 g 2 12/05/2022 Active Start: 04-03-2022 take 2 spray(s) nasa l route once daily fluticasone propionate (FLONASE) 50 mcg/actuation nasal spray Administer 2 sprays into each nostril once daily. 04/03/2022 Active loratadine 10 mg oral tablet (20 sources) End: 07-07-2024 loratadine (Claritin) 10 MG tablet 1 (one) time each day at the same time 07/07/2024 Discontinued (Other) metOLazone 5 mg oral tablet (4 sources) Thiazide-like Diuretic Start: 11-06-2021 take 1 tablet by mouth every other day metOLazone 5 MG Oral Tablet TAKE 1 TABLET EVERY OTHER DAY Quantity: 45 Refills: 3 Ordered: 09-May-2022 Mily Hackett MD Start : 06-Nov-2021 Active new start Multi Vitamin Oral Tablet (10 sources) take 1 tablet by mouth once daily Multi Vitamin Oral Tablet TAKE 1 TABLET DAILY. Quantity: 0 Refills: 0 Ordered: 26-Apr-2021 DO Active Probiotic CAPS (10 sources) Probiotic CAPS Take as directed Quantity: 0 Refills: 0 Ordered: 26-Apr-2021 DO Active 1 ml triamcinolone acetonide 40 mg/ml prefilled syringe (4 sources) Corticosteroid Start: 06-24-2024 End: 06-24-2024 triamcinolone acetonide (Kenalog-40) injection 40 mg Start: 06-24-2024 End: 06-24-2024 inject 40 mg by intramuscular injection once 40 mg, Intramuscular, Once, On Sat06/24/24 at 1430, For 1 dose Start: 06-24-2024 End: 06-24-2024 triamcinolone acetonide (Kenalog-40) injection 40 mg Start: 06-24-2024 End: 06-24-2024 inject 40 mg by intramuscular injection once 40 mg, Intramuscular, Once, On Sat06/24/24 at 1430, For 1 dose Vitamin B 12 TABS (10 sources) Vitamin [...] Classification Problem Date Documented Date Episodic/Chronic Asthma (20 sources) Asthmatic bronchitis; Translations: [Unspecified asthma, uncomplicated] Onset: 8 12-05-2022 Chronic Cardiac dysrhythmias (20 sources) Unspecified atrial fibrillation; Translations: [Permanent atrial fibrillation] Onset: 8 10-25-2022 Chronic Coagulation and hemorrhagic disorders (20 sources) Thrombocytopenic disorder; Translations: [Thrombocytopenia, unspecified] Onset: 8 12-05-2022 Chronic Conditions associated with dizziness or vertigo (20 sources) Cochlear hydrops of right inner ear; 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, right ear] Onset: 0 12-05-2022 Chronic Deficiency and other anemia (1 source) Anemia, unspecified; Translations: [ANEMIA UNSPECIFIED] Onset: 3 Episodic Esophageal disorders (20 sources) Gastroesophageal reflux disease; Translations: [Gastro-esophageal reflux disease without esophagitis] Onset: 1 10-25-2022 Chronic Essential hypertension (20 sources) Essential hypertension; Translations: [Unspecified essential hypertension] Onset: 3 12-05-2022 Chronic Genitourinary symptoms and ill-defined conditions (20 sources) Urge incontinence of urine; Translations: [Urge incontinence] Onset: 3 12-05-2022 Chronic Heart valve disorders (20 sources) Mitral valve prolapse; Translations: [Nonrheumatic mitral (valve) prolapse] Onset: 3 10-25-2022 Chronic Hypertension with complications and secondary hypertension (1 source) Hypertensive heart disease with heart failure; Translations: [HTN HEART DISEASE W/HEART FAIL] Onset: 2 Chronic Menopausal disorders (20 sources) Atrophy of vagina; Translations: [Postmenopausal atrophic vaginitis] Onset: 3 12-05-2022 Chronic Nonmalignant breast conditions (20 sources) Fibrocystic disease of breast; Translations: [Diffuse cystic mastopathy of unspecified breast] Onset: 6 12-05-2022 Chronic Nutritional deficiencies (20 sources) Vitamin D deficiency, unspecified; Translations: [Vitamin D deficiency] Onset: 9 12-05-2022 Chronic Osteoarthritis (20 sources) Osteoarthritis of right knee joint; Translations: [Unilateral primary osteoarthritis, right knee] Onset: 9 12-05-2022 Chronic Osteoporosis (20 sources) Senile osteoporosis; Translations: [Age-related osteoporosis without current pathological fracture] Onset: 0 12-05-2022 Chronic Other aftercare (9 sources) Encounter for therapeutic drug level monitoring; Translations: [ENCOUNTER FOR THERAPEUTIC DRUG LEVEL MONITORING] Onset: 8 Episodic Other connective tissue disease (8 sources) Full thickness rotator cuff tear; Translations: [Complete rotator cuff tear or rupture of right shoulder, not specified as traumatic] 01-02-2024 Episodic Other diseases of kidney and ureters (2 sources) Hyperparathyroidism due to renal insufficiency; Translations: [Secondary hyperparathyroidism of renal origin] 10-29-2023 Chronic Other diseases of veins and lymphatics (20 sources) Lymphedema; Translations: [Lymphedema, not elsewhere classified] Onset: 9 12-05-2022 Chronic Other diseases of veins and lymphatics (1 source) Lymphedema, not elsewhere classified; Translations: [Lymphedema, not elsewhere classified] Onset: 5 Chronic Other ear and sense organ disorders (20 sources) Sensorineural hearing loss, unilateral, left ear, with unrestricted hearing on the contralateral side; Translations: [Sensorineural hearing loss, unilateral] Onset: 0 12-05-2022 Chronic Other ear and sense organ disorders (2 sources) Impacted cerumen in right ear; Translations: [Impacted cerumen, right ear] 01-03-2024 Episodic Other endocrine disorders (4 sources) Secondary hyperparathyroidism, not elsewhere classified; Translations: [SECONDARY HYPERPARATHYROIDISM NEC] Onset: 3 Chronic Other endocrine disorders (20 sources) Hyperparathyroidism; Translations: [Hyperparathyroidism, unspecified] Onset: 9 12-05-2022 Chronic Other endocrine disorders (3 sources) Primary hyperparathyroidism; Translations: [Primary hyperparathyroidism] Onset: 4 10-29-2023 Chronic Other endocrine disorders (2 sources) Secondary hyperparathyroidism; Translations: [Secondary hyperparathyroidism, not elsewhere classified] 10-29-2023 Chronic Other gastrointestinal disorders (5 sources) Intestinal malabsorption, unspecified; Translations: [INTESTINAL MALABSORPTION UNS] Onset: 2 Chronic Other gastrointestinal disorders (20 sources) Abnormal intestinal absorption; Translations: [Intestinal malabsorption, unspecified] Onset: 0 12-05-2022 Chronic Other gastrointestinal disorders (1 source) Bariatric surgery status; Translations: [BARIATRIC SURGERY STATUS] Onset: 3 Episodic Other gastrointestinal disorders (2 sources) History of bariatric surgical procedure; Translations: [Bariatric surgery status] 04-16-2024 Episodic Other nervous system disorders (20 sources) Carpal tunnel syndrome; Translations: [Carpal tunnel syndrome, unspecified upper limb] Onset: 8 12-05-2022 Chronic Other nervous system disorders (20 sources) Piriformis syndrome; Translations: [Lesion of sciatic nerve, unspecified lower limb] Onset: 3 12-05-2022 Chronic Other nervous system disorders (4 sources) Bilateral carpal tunnel syndrome; Translations: [Carpal tunnel syndrome, bilateral upper limbs] 10-29-2023 Chronic Other non-traumatic joint disorders (20 sources) Derangement of left shoulder joint; Translations: [Other specific joint derangements of left shoulder, not elsewhere classified] Onset: 7 12-05-2022 Chronic Other non-traumatic joint disorders (20 sources) Monoarthritis; Translations: [Monoarthritis, not elsewhere classified, unspecified site] Onset: 0 12-05-2022 Chronic Other nutritional; endocrine; and metabolic disorders (17 sources) Body mass index 40+ - severely obese; Translations: [Morbid obesity] Onset: 5 10-29-2023 Chronic Other nutritional; endocrine; and metabolic disorders (1 source) Hypomagnesemia; Translations: [HYPOMAGNESEMIA] Onset: 3 Chronic Other nutritional; endocrine; and metabolic disorders (1 source) Morbid (severe) obesity due to excess calories; Translations: [MORBID SEVERE OBES D/T EXCESS FERNANDO] Onset: 2 Chronic Other nutritional; endocrine; and metabolic disorders (3 sources) Severe obesity; Translations: [Morbid obesity] Chronic Other nutritional; endocrine; and metabolic disorders (20 sources) Hypercalcemia; Translations: [Hypercalcemia] Onset: 8 12-05-2022 Chronic Other nutritional; endocrine; and metabolic disorders (20 sources) Intestinal disaccharidase deficiency; Translations: [Lactose intolerance, unspecified] Onset: 9 12-05-2022 Chronic Other nutritional; endocrine; and metabolic disorders (20 sources) Morbid obesity; Translations: [Morbid (severe) obesity due to excess calories] Onset: 3 12-05-2022 Chronic Other nutritional; endocrine; and metabolic disorders (2 sources) Hypomagnesemia; Translations: [Hypomagnesemia] 10-29-2023 Chronic Other nutritional; endocrine; and metabolic disorders (2 sources) Body mass index (BMI) 39.0-39.9, adult; Translations: [Body mass index (BMI) 39.0-39.9, adult] Onset: 4 Chronic Other nutritional; endocrine; and metabolic disorders (2 sources) Obesity caused by energy imbalance; Translations: [Morbid (severe) obesity due to excess calories] 04-17-2024 Chronic Other upper respiratory disease (20 sources) Seasonal allergy; Translations: [Other seasonal allergic rhinitis] Onset: 1 12-05-2022 Chronic Other upper respiratory infections (20 sources) Chronic sinusitis; Translations: [Other chronic sinusitis] Onset: 3 12-05-2022 Chronic Other upper respiratory infections (15 sources) Acute sinusitis; Translations: [Acute sinusitis, unspecified] 04-17-2023 Episodic Residual codes; unclassified (12 sources) Sleep apnea; Translations: [Unspecified sleep apnea] Onset: 3 12-27-2022 Chronic Residual codes; unclassified (20 sources) Obstructive sleep apnea syndrome; Translations: [Obstructive sleep apnea (adult) (pediatric)] Onset: 6 12-05-2022 Chronic Residual codes; unclassified (2 sources) Obstructive sleep apnea (adult) (pediatric); Translations: [Obstructive sleep apnea (adult) (pediatric)] Onset: 3 Chronic Residual codes; unclassified (2 sources) Other problems related to lifestyle; Translations: [Other problems related to lifestyle] 07-07-2024 Episodic Thyroid disorders (20 sources) Non-toxic multinodular goiter; Translations: [Nontoxic multinodular goiter] Onset: 5 12-05-2022 Chronic Unclassified (2 sources) DX Onset: 8 Unclassified (5 sources) Chronic atrial fibrillation, unspecified; Translations: [CHRONIC ATRIAL FIBRILLATION UNSPEC] Onset: 3 Unclassified (8 sources) Permanent atrial fibrillation; Translations: [PERMANENT ATRIAL FIBRILLATION] Onset: 2 Unclassified (2 sources) Thyroid Problem Onset: 4 Urinary tract infections (4 sources) Acute cystitis; Translations: [Acute cystitis without hematuria] 02-28-2024 Episodic Past or Other Problems Problem Classification Problem Date Documented Da te Episodic/Chronic Acquired foot deformities (20 sources) Acquired pes planus of left foot; Translations: [Flat foot [pes planus] (acquired), left foot] Onset: 3 12-05-2022 Episodic Deficiency and other anemia (3 sources) Iron deficiency anemia, unspecified; Translations: [IRON DEFICIENCY ANEMIA UNSPECIFIED] Onset: 3 Episodic Deficiency and other anemia (20 sources) Anemia; Translations: [Anemia, unspecified] Onset: 3 Resolved: 5 10-25-2022 Episodic Deficiency and other anemia (20 sources) Iron deficiency anemia; Translations: [Iron deficiency anemia, unspecified] Onset: 4 01-03-2024 Episodic E Codes: Fall (1 source) Fall on same level from slipping, tripping and stumbling with subsequent striking against unspecified object, initial encounter; Translations: [FALL SAME LVL SLIP STRK UNS OBJ INT] Onset: 2 Episodic Fluid and electrolyte disorders (20 sources) Hypokalemia; Translations: [Hypopotassemia] Onset: 2 Episodic Malaise and fatigue (20 sources) Other fatigue; Translations: [Fatigue] Onset: 6 Episodic Mood disorders (20 sources) Mood disorders Onset: 4 Resolved: 5 10-29-2023 Nutritional deficiencies (20 sources) Vitamin B-complex deficiency ; Translations: [Vitamin B deficiency, unspecified] Onset: 5 12-05-2022 Episodic Other aftercare (4 sources) 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; Translations: [SENIOR LIVING (CURRENT) USE OF ANTICOAGULANTS] Onset: 8 Episodic Other aftercare (20 sources) Drug therapy finding; Translations: [Long-term (current) use of other medications] Onset: 3 01-11-2023 Episodic Other aftercare (1 source) Other prison (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; Translations: [OTH SENIOR LIVING CURRENT DRUG THERAPY] Onset: 2 Episodic Other aftercare (1 source) 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; Translations: [SENIOR LIVING CURRENT USE OF ASPIRIN] Onset: 2 Episodic Other aftercare (20 sources) Taking high risk medication; 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] Onset: 3 Resolved: 4 01-11-2023 Episodic Other bone disease and musculoskeletal deformities (20 sources) Disorder of skeletal system; Translations: [Disorder of bone, unspecified] Onset: 9 12-05-2022 Episodic Other connective tissue disease (4 sources) Pain in left foot; Translations: [PAIN IN LEFT FOOT] Onset: 2 Episodic Other connective tissue disease (20 sources) Spasm of cervical paraspinous muscle; Translations: [Other muscle spasm] Onset: 3 08-14-2022 Episodic Other connective tissue disease (20 sources) Acquired trigger finger; Translations: [Trigger finger, unspecified finger] Onset: 8 12-05-2022 Episodic Other connective tissue disease (20 sources) Cramp in limb; Translations: [Cramp and spasm] Onset: 9 12-05-2022 Episodic Other connective tissue disease (20 sources) Decrease in height; Translations: [Loss of height] Onset: 6 12-05-2022 Episodic Other connective tissue disease (20 sources) Left achilles tendonitis; Translations: [Achilles tendinitis, left leg] Onset: 3 12-05-2022 Episodic Other connective tissue disease (20 sources) Bilateral plantar fasciitis; Translations: [Plantar fascial fibromatosis] Onset: 3 12-05-2022 Episodic Other diseases of veins and lymphatics (20 sources) Peripheral venous insufficiency; Translations: [Venous insufficiency (chronic) (peripheral)] Onset: 5 12-05-2022 Episodic Other ear and sense organ disorders (20 sources) Tinnitus of left ear; Translations: [Tinnitus, left ear] Onset: 0 12-05-2022 Episodic Other gastrointestinal disorders (20 sources) History of bypass of stomach; Translations: [Bariatric surgery status] Onset: 6 12-05-2022 Episodic Other injuries and conditions due to external causes (1 source) Other specified injuries of head, initial encounter; Translations: [OTH SPEC INJURIES HEAD INITIAL ENC] Onset: 2 Episodic Other liver diseases (20 sources) Aspartate aminotransferase serum level raised; Translations: [Elevated AST (SGOT)] Onset: 3 12-05-2022 Episodic Other liver diseases (20 sources) Elevated levels of transaminase & lactic acid dehydrogenase; Translations: [Elevated levels of transaminase & lactic acid dehydrogenase] Onset: 8 12-05-2022 Episodic Other non-traumatic joint disorders (20 sources) Shoulder pain; Translations: [Pain in right shoulder] Onset: 3 08-14-2022 Episodic Other nutritional; endocrine; and metabolic disorders (20 sources) Body mass index 30+ - obesity; Translations: [Body mass index (BMI) 39.0-39.9, adult] Onset: 4 Resolved: 5 05-13-2023 Chronic Other screening for suspected conditions (not mental disorders or infectious disease) (5 sources) Patient encounter status; Translations: [Encounter for screening mammogram for malignant neoplasm of breast] Onset: 5 03-17-2024 Episodic Other skin disorders (9 sources) History of cellulitis; Translations: [Personal history of diseases of skin and subcutaneous tissue] Resolved: 2 Episodic Otitis media and related conditions (2 sources) Disorder of left Eustachian tube; Translations: [Unspecified Eustachian tube disorder, left ear] 10-29-2023 Episodic Residual codes; unclassified (20 sources) Bilateral lower limb edema; Translations: [Edema] Onset: 3 01-11-2023 Episodic Residual codes; unclassified (1 source) Localized edema; Translations: [LOCALIZED EDEMA] Onset: 2 Episodic Residual codes; unclassified (20 sources) Edema of lower extremity; Translations: [Localized edema] Onset: 3 Resolved: 5 12-05-2022 Episodic Screening and history of mental health and substance abuse codes (20 sources) Ex-smoker; Translations: [Personal history of tobacco use] Onset: 4 05-13-2023 Episodic Skin and subcutaneous tissue infections (20 sources) Cellulitis; Translations: [Cellulitis and abscess of unspecified sites] Onset: 2 Resolved: 5 01-11-2023 Episodic Spondylosis; intervertebral disc disorders; other back problems (20 sources) Dorsalgia, unspecified; Translations: [Right cervical root neuropathy] Onset: 9 Episodic Thyroid disorders (20 sources) Disorder of thyroid gland; Translations: [Disorder of thyroid, unspecified] Onset: 3 10-25-2022 Episodic Unclassified (2 sources) Onset: 4 Resolved: 4 05-13-2023 Results Test Name Value Interpretation Reference Range Facility No Panel Informationon 07-02 Margaux Walker MA 07/02/2024 1:02 PM L Inj/Asp: R glenohumeral on 07/02/2024 9:57 AM Indications: pain Details: 25 G needle, ultrasound-guided Medications: 12 mg betamethasone acetate-betamethason e sodium phosphate 6 (3-3) MG/ML [facility] 0 06-09-2024 TSH Qn 2.111 m[IU]/L [facility] CMP (CMP) (FOR REMOTE FH C USE)on 06-09-2024 Albumin [Mass/Vol] 3.3 g/dL Low 3.4 - 5.0 g/dL [facility] ALBUMIN GLOBULIN RATIO 0.[address] [facility] ALP [Catalytic activity/Vol] 77 U/L 46 - 116 U/L [facility] ALT [Catalytic activity/Vol] 23 U/L 14 - 59 U/L [facility] Anion gap [Moles/Vol] 12.2 mmol/L [facility] AST [Catalytic activity/Vol] 25 U/L 15 - 37 U/L [facility] Bilirubin [Mass/Vol] 1 mg/dL 0.2 - 1.0 mg/dL [facility] Calcium [Mass/Vol] 9.9 mg/dL 8.5 - 10. 1 mg/dL [facility] Chloride [Moles/Vol] 107 mmol/L 98 - 107 mmol/L [facility] CO2 [Moles/Vol] 27.5 mmol/L 21.0 - 32.0 mmol/L [facility] Creatinine [Mass/Vol] 0.87 mg/dL 0.55 - 1.02 mg/dL [facility] GFR/1.73 sq M.predicted CKD-EPI (S/P/Bld) [Vol rate/Area] >60 >=60 mL/min/1.73m [address] [facility] Globulin (S) [Mass/Vol] 3.6 g/dL [facility] Glucose [Mass/Vol] 89 mg/dL 74 - 106 mg/dL [facility] Interpretation and review of laboratory results Abnormal [facility] Potassium [Moles/Vol] 4.7 mmol/L 3.5 - 5.1 mmol/L [facility] Protein [Mass/Vol] 6.9 g/dL 6.4 - 8.2 g/dL [facility] Sodium [Moles/Vol] 142 mmol/L 136 - 145 mmol/L [facility] TBH EGFR-NON AF [place] >60 >=60 mL/min/1.73m [address] [facility] Urea nitrogen [Mass/Vol] 28 mg/dL High 7.0 - 18.0 mg/dL [facility] Urea nitrogen/Creatinine [Mass ratio] 32.2 mg/mg [facility] No Panel Informationon 06-09 [facility] URIC ACIDon 05-30-2024 Urate [Mass/Vol] 6.8 mg/dL Normal 2.5-7.0 [facility] Comment on above: Order Comment: FASTI NG:NO FASTING: NO Result Comment: Ther apeutic target for gout patients: <6.0 mg/dL Performed By: #### 9 05 #### [facility] [address], [address] [place] [id number] Fans Clerk: Jose Yao MD MM screening mammo BI w/CADo n 03-19-2024 MM screening mammo BI w/CAD [facility] [place] [address] Mammography Report Signed Patient: Marla Figueredo MR#: [id number] : 1955 Acct:[id number] Age/Sex: 68 / F ADM Date: 03/19/24 Loc: [place] Room: Type: [facility] Attending Dr: Sherlyn Rucker DO Copies to: MD Sherlyn Miller II, DO Ordering Provider: Sherlyn Rucker DO Date of Service: 03/19/24 MM/MM screening mammo BI w/CAD: screening CLINICAL DATA: Screening for malignancy. SCREENING MAMMOGRAM - FULL FIELD DIGITAL WITH TOMOSYNTHESIS AND CAD COMPARISON:Priors dating back to 2019 Tomosynthesis craniocaudal and mediolateral oblique views of both breasts were obtained using low- dose digital technique. This examination was reviewed with the aid of CAD. The breast tissue is almost entirely fatty. There are no dominant masses, typically malignant calcifications or architectural distortion. There has been no significant interval change. MM/MM screening mammo BI w/CAD IMPRESSION: NO MAMMOGRAPHIC EVIDENCE OF MALIGNANCY. ROUTINE FOLLOW-UP IS RECOMMENDED IN ONE YEAR. RESULT CODE: 1 Negative DENSITY CODE: 1 (<25% glandular) FOLLOW UP: 1YR The false-negative rate of mammography is approximately 10-percent. Management of a palpable abnormality must be based on clinical grounds. Patient was entered into a reminder system with a target due date for the next mammogram. Impression dictated by: Erik Rodriguez M.D.03/19/2024 3:47 PM Dictation Location: [facility] Transcribed By: AJ 03/19/24 1547 Dictated By: Erik Rodriguez MD 03/19/24 1541 Signed By: 03/19/24 1547 Normal [facility] Mammography reportOrdered By : Erik Rodriguez on 03-19-2024 Diagnostic imaging study [facility] [place] [address] Mammography Report Signed Patient: Marla Figueredo MR#: [id number] : 1955 Acct:[id number] Age/Sex: 68 / F ADM Date: 5 Loc: [place] Room: Type: [facility] Attending Dr: Sherlyn Rucker DO Copies to: MD Sherlyn Milelr II, DO~ Ordering Provider: Sherlyn Rucker DO Date of Service: 03/19/24 MM/MM screening mammo BI w/CAD: screening CLINICAL DATA: Screening for malignancy. SCREENING MAMMOGRAM - FULL FIELD DIGITAL WITH TOMOSYNTHESIS AND CAD COMPARISON:Priors dating back to 2019 Tomosynthesis craniocaudal and mediolateral oblique views of both breasts were obtained using low-dose digital technique. This examination was reviewed with the aid of CAD. The breast tissue is almost entirely fatty. There are no dominant masses, typically malignant calcifications or architectural distortion. There has been no significant interval change. MM/MM screening mammo BI w/CAD IMPRESSION: NO MAMMOGRAPHIC EVIDENCE OF MALIGNANCY. ROUTINE FOLLOW-UP IS RECOMMENDED IN ONE YEAR. RESULT CODE: 1 Negative DENSITY CODE: 1 (<25% glandular) FOLLOW UP: 1YR The false-negative rate of mammography is approximately 10-percent. Management of a palpable abnormality must be based on clinical grounds. Patient was entered into a reminder system with a target due date for the next mammogram. Impression dictated by: Erik Rodriguez M.D.03/19/2024 3:47 PM Dictation Location: [facility] Transcribed By: [facility] 03/19/24 154 Dictated By: Erik Rodriguez MD 03/19/24 154 Signed By: 03/19/24 154 [facility] Work Phone: Urinalysis macro (dipstick) panel (U)on 03-12-2024 Bilirubin, UA Trace Negative - 4(70) +++ mg/dL [facility] Blood, UA Positive Negative - 50 Binh/mcL [facility] Glucose, UA Negative Negative - 2000(110) ++++ mg/dL [facility] Ketones, UA Negative Negative - 160(16) ++++ mg/dL [facility] Leukocytes, UA Trace Negative - 500+++ Ashu/mcL [facility] Nitrite, UA Negative Negative - Positive [facility] pH, UA 6 5 - 9 [facility] e Protein, UA 3+ Negative - 1999(20) ++++ mg/dL [facility] Spec Grav, UA 1.015 1 - 1.03 [facility] Urobilinogen, UA 0.2 0.2 - 12 mg/dL [facility] CBC (INCLUDES DIFF/PLT)on Basophils (Bld) [#/Vol] 0.018 10*3/uL Normal 0-200 [facility] Comment on above: Performed By: #### 7 16, 5724, 655 #### [facility] [address], [address] [place] [phone] Fans Clerk: Jose Yao MD Basophils/100 WBC (Bld) 0.3 % Normal [facility] Comment on above: Performed By: #### 7 93, 63, 927 #### [facility] of [place] [address] Fans Clerk: Jose Yao MD Eosinophils (Bld) [#/Vol] 0.061 10*3/uL Normal 15-500 [facility] Comment on above: Performed By: #### 7 93, 76, 927 #### [facility] of [address], [address] [place] [address] Fans Clerk: Jose Yao MD Eosinophils/100 WBC (Bld) 1.0 % Normal [facility] Comment on above: Performed By: #### 7 , 79, 927 #### [facility] of [place] [address] Fans Clerk: Jose Yao MD Erythrocyte distribution width (RBC) [Ratio] 12.7 % Normal 11.0-15.0 [facility] Comment on above: Performed By: #### 7 , 82, 927 #### [facility] of [place] [address] Fans Clerk: Jose Yao MD Hematocrit (Bld) [Volume fraction] 36.1 % Normal 35.0-45.0 [facility] Comment on above: Performed By: #### 7 93, 98, 927 #### [facility] of [place] [address] Fans Clerk: Jose Yao MD Hemoglobin (Bld) [Mass/Vol] 11.4 g/dL Low 11.7-15.5 [facility] Comment on above: Performed By: #### 7 93, 26, 927 #### [facility] of [place] [address] Fans Clerk: Jose Yao MD Lymphocytes (Bld) [#/Vol] 1.122 10*3/uL Normal 850-3900 [facility] Comment on above: Performed By: #### 7 , 56, 927 #### [facility] [place] [address] Fans Clerk: Jose Yao MD Lymphocytes/100 WBC (Bld) 18.4 % Normal [facility] Comment on above: Performed By: #### 7 , 63, 927 #### [facility] [place] [address] Fans Clerk: Jose Yao MD MCH (RBC) [Entitic mass] 28.2 pg Normal 27.0-33.0 [facility] Comment on above: Performed By: #### 7 , 16, 927 #### [facility] [place] [address] Fans Clerk: Jose Yao MD MCHC (RBC) [Mass/Vol] 31.6 g/dL Low 32.0-36.0 [facility] Comment on above: Result Comment: For adults, a slight decrease in the calculated MCHC value (in the range of 30 to 32 g/dL) is most likely not clinically significant; however, it should be interpreted with caution in correlation with other red cell parameters and the patient's clinical condition. Performed By: #### 7 , 12, 927 #### [facility] [place] [address] Fans Clerk: Jose Yao MD MCV (RBC) [Entitic vol] 89.4 fL Normal 80.0-100.0 [facility] Comment on above: Performed By: #### 7 , 45, 927 #### [facility] [place] [address] Fans Clerk: Jose Yao MD Monocytes (Bld) [#/Vol] 0.415 10*3/uL Normal 200-950 [facility] Comment on above: Performed By: #### 7 , 3516, 927 #### [facility] [place] [address] Fans Clerk: Jose Yao MD Monocytes/100 WBC (Bld) 6.8 % Normal [facility] Comment on above: Performed By: #### 7 93, 63, 927 #### [facility] of [place] [address] Fans Clerk: Jose Yao MD Neutrophils (Bld) [#/Vol] 4.484 10*3/uL Normal 8706-1708 [facility] Comment on above: Performed By: #### 7 93, 52, 927 #### [facility] of [place] [address] Fans Clerk: Jose Yao MD Neutrophils/100 WBC (Bld) 73.5 % Normal [facility] Comment on above: Performed By: #### 7 93, 30, 927 #### [facility] of [place] [address] Fans Clerk: Jose Yao MD Platelet mean volume (Bld) [Entitic vol] 11.4 fL Normal 7.5-12.5 [facility] Comment on above: Performed By: #### 7 , 87, 927 #### [facility] of [place] [address] Fans Clerk: Jose Yao MD Platelets (Bld) [#/Vol] 142 10*3/uL Normal 140-400 [facility] Comment on above: Performed By: #### 7 93, 41, 927 #### [facility] [place] [address] Fans Clerk: Jose Yao MD RBC (Bld) [#/Vol] 4.04 10*6/uL Normal 3.80-5.10 [facility] Comment on above: Performed By: #### 7 93, 52, 927 #### [facility] of [place] [address] Fans Clerk: Jose Yao MD WBC (Bld) [#/Vol] 6.1 10*3/uL Normal 3.8-10.8 [facility] Comment on above: Performed By: #### 7 93, 75, 927 #### [facility] [address], [address] [place] [address] Fans Clerk: Jose Yao MD FOLATE, SERUMon 02-29-2024 Folate [Mass/Vol] ng/mL Normal [facility] Comment on above: Result Comment: Refe rence Range Low: <3.4 Borderline: 3.4-5.4 Normal: >5.4 Performed By: #### 7 93, 6399, 927 #### [facility] [address], [address] [place] [address] Fans Clerk: Jose Yao MD RETICULOCYTE COUNTon 024 RETICULOCYTE COUNT, AUTOMATED 2.2 % Normal [facility] Comment on above: Order Comment: FASTI NG:NO FASTING: NO Performed By: #### 7 93, 6399, 927 #### [facility] [place] [address] Fans Clerk: Jose Yao MD RETICULOCYTE, ABSOLUTE 31819 cells/uL High [id number] [facility] Comment on above: Order Comment: FASTI NG:NO FASTING: NO Performed By: #### 7 93, 2099, 927 #### [facility] [place] [address] Fans Clerk: Jose Yao MD VITAMIN B12on 02-29-2024 Cobalamin (Vitamin B12) [Mass/Vol] 1015 pg/mL Normal 200-1100 [facility] Comment on above: Performed By: #### 7 93, 6399, 927 #### [facility] [address], [address] [place] [address] Fans Clerk: Jose Yao MD METRO VITAMIN B1, WHOLE BLOO Don 01-23-2024 VITAMIN B1 (THIAMINE), BLOOD 193.7 nmol/L 66.5 - 200.0 nmol/L [facility] Comment on above: This test was develo ped and its performance characteristics determined by [facility]. It has not been cleared or approved by the Food and Drug Administration. Performed at: BN - [facility] [id number] Chief Bank Examiner: Bernice Gant MD, Phone: [phone] [facility] VITAMIN B12on 01-21-2024 Cobalamin (Vitamin B12) [Mass/Vol] 826 pg/mL 232 - 1245 pg/mL [facility] Comment on above: Performed at: [address] [id number] Chief Bank Examiner: Bharat Cain PhD, Phone: [phone] [facility] ALL CBC WITH AUTO DIFFon BASOPHILS ABSOLUTE AUTO [address] [facility] Basophils/100 WBC (Bld) 0.5 % 0.2 - 2.0 % [facility] Eosinophils/100 WBC (Bld) 1.5 % 0.9 - 7.0 % [facility] Erythrocyte distribution width (RBC) [Ratio] 14.2 % 11.0 - 15.0 % [facility] Hematocrit (Bld) [Volume fraction] 35.2 % Low 36.0 - 48.0 % [facility] Hem[facility] (Bld) [Mass/Vol] 10.8 g/dL Low 12.0 - 16.0 g/dL [facility] IMMATURE GRANULOCYTES ABS AUTO 0.[address] [facility] Immature granulocytes/100 WBC (Bld) 0.3 % 0.0 - 0.5 % [facility] Interpretation and review of laboratory results Abnormal [facility] LYMPHOCYTES ABSOLUTE AUTO 1.[address] [facility] Lymphocytes/100 WBC (Bld) 17.6 % Low 20.5 - 60.0 % [facility] MCH (RBC) [Entitic mass] 28.5 pg 26.7 - 34.[address] [facility] MCHC (RBC) [Mass/Vol] 30.7 g/dL 29.9 - 35.2 g/dL [facility] MCV (RBC) [Entitic vol] 92.9 fL 81.0 - 99.[address] [facility] MONOCYTES ABSOLUTE AUTO 0.3 [facility] Monocytes/100 WBC (Bld) 5.2 % 1.7 - 12.0 % [facility] NEUTROPHILS ABSOLUTE AUTO 4.[address] [facility] Neutrophils/100 WBC (Bld) 74.9 % 43.0 - 75.0 % [facility] Platelet mean volume (Bld) [Entitic vol] 10.7 fL 9.5 - 13.[address] [facility] TBH EO # 0.1 [facility] PLT 124 Low [facility] RBC 3.79 Low [facility] WBC 6.2 [facility] ALL FOLIC ACIDon 01-20-2024 FOLATE 21.3 ng/mL 8.60 - 58.90 ng/mL [facility] ALL MAGNESIUMon 01-20-2024 Magnesium [Mass/Vol] 2.2 mg/dL 1.8 - 2.4 mg/dL [facility] ALL PHOSPHOROUSon 01-20-2024 Phosphate [Mass/Vol] 2.8 mg/dL 2.6 - 4.7 mg/dL [facility] CMP (CMP) (FOR REMOTE FH C USE)on 01-20-2024 Albumin [Mass/Vol] 3 g/dL Low 3.4 - 5.0 g/dL NO [facility] ALBUMIN GLOBULIN RATIO 0.[address] [facility] ALP [Catalytic activity/Vol] 77 U/L 46 - 116 U/L [facility] ALT [Catalytic activity/Vol] 23 U/L 14 - 59 U/L [facility] Anion gap [Moles/Vol] 13.2 mmol/L [facility] AST [Catalytic activity/Vol] 18 U/L 15 - 37 U/L [facility] Bilirubin [Mass/Vol] 1 mg/dL 0.2 - 1.0 mg/dL [facility] Calcium [Mass/Vol] 9.9 mg/dL 8.5 - 10. 1 mg/dL [facility] Chloride [Moles/Vol] 109 mmol/L High 98 - 107 mmol/L [facility] CO2 [Moles/Vol] 23.9 mmol/L 21.0 - 32.0 mmol/L [facility] Creatinine [Mass/Vol] 0.91 mg/dL 0.55 - 1.02 mg/dL [facility] GFR/1.73 sq M.predicted CKD-EPI (S/P/Bld) [Vol rate/Area] >60 >=60 mL/min/1.73m [address] [facility] Globulin (S) [Mass/Vol] 3.3 g/dL [facility] Glucose [Mass/Vol] 91 mg/dL 74 - 106 mg/dL NO [facility] Interpretation and review of laboratory results Abnormal [facility] Potassium [Moles/Vol] 4.1 mmol/L 3.5 - 5.1 mmol/L [facility] Protein [Mass/Vol] 6.3 g/dL Low 6.4 - 8.2 g/dL [facility] Sodium [Moles/Vol] 142 mmol/L 136 - 145 mmol/L [facility] TB EGFR-NON AF [place] ISLANDER >60 >=60 mL/min/1.73m [address] [facility] Urea nitrogen [Mass/Vol] 29 mg/dL High 7.0 - 18.0 mg/dL [facility] Urea nitrogen/Creatinine [Mass ratio] 31.9 mg/mg [facility] FERRITINon 01-20-2024 Ferritin [Mass/Vol] 604 ng/mL High 8.0 - 25 2.0 ng/mL [facility] Interpretation and review of laboratory results Abnormal [facility] METRO IRON AND TIBCon 2023 Interpretation and review of laboratory results Abnormal [facility] TBH IRON 54 ug/dL 50.0 - 170.0 ug/dL [facility] PERCENT IRON SATURATION 21.9 % [facility] TOTAL IRON BINDING CAPACITY 247 ug/dL Low 250.0 - 450.0 ug/dL [facility] No Panel Informationon 01-19 [facility] TBH VITAMIN D 25 OHon 2023 VITAMIN D 57.9 ng/mL [facility] Comment on above: <20 ng/mL Vit D defi cient 20-<30 ng/mL Vit D insufficient 30-100 ng/mL Vit D sufficient >100 ng/mL Potential Toxicity No Panel Informationon 01-01 Radha Barron, ARRT 01/02/2024 7:28 PM L Inj/Asp: R glenohumeral on 01/02/2024 9:18 AM Indications: pain Details: 25 G needle, ultrasound-guided Medications: 2 mL betamethasone acetate-betamethason e sodium phosphate 6 (3-3) MG/ML Consent was given by the patient. [facility] - right 2 Viewso n 01-02-2024 Imaging Result: 4 views right shoulder, Grashey/Zanca/outlet /axillary, taken today and saved to the permanent medical record are reviewed. ACI WNL. No arthritic changes at GH joint. Cystic change in greater tuberosity. Mild AC joint narrowing. Type 1 acromion. [facility] Radiology Study observation (narrative) [facility] ALL CBC WITH AUTO DIFFon BASOPHILS ABSOLUTE AUTO 0.[address] [facility] Basophils/100 WBC (Bld) 0.2 % 0.2 - 2.0 % [facility] Eosinophils/100 WBC (Bld) 0.3 % Low 0.9 - 7.0 % [facility] Erythrocyte distribution width (RBC) [Ratio] 13.9 % 11.0 - 15.0 % [facility] Hematocrit (Bld) [Volume fraction] 38.0 % 36.0 - 48.0 % [facility] Hemoglobin (Bld) [Mass/Vol] 11.7 g/dL Low 12.0 - 16.0 g/dL [facility] IMMATURE GRANULOCYTES ABS AUTO 0.[address] [facility] Immature granulocytes/100 WBC (Bld) 0.3 % 0.0 - 0.5 % [facility] Interpretation and review of laboratory results Abnormal [facility] LYMPHOCYTES ABSOLUTE AUTO 1.[address] [facility] Lymphocytes/100 WBC (Bld) 17.3 % Low 20.5 - 60.0 % [facility] MCH (RBC) [Entitic mass] 28.1 pg 26.7 - 34.[address] [facility] MCHC (RBC) [Mass/Vol] 30.8 g/dL 29.9 - 35.2 g/dL [facility] MCV (RBC) [Entitic vol] 91.3 fL 81.0 - 99.[address] [facility] MONOCYTES ABSOLUTE AUTO 0.[address] [facility] Monocytes/100 WBC (Bld) 6.4 % 1.7 - 12.0 % [facility] NEUTROPHILS ABSOLUTE AUTO 7.[address] [facility] Neutrophils/100 WBC (Bld) 75.5 % High 43.0 - 75.0 % [facility] Platelet mean volume (Bld) [Entitic vol] 10.8 fL 9.5 - 13.[address] [facility] TBH EO # 0.0 [facility] TBH PLT 136 Low [facility] TB RBC 4.16 Low [facility] WBC 9.3 [facility] Office Visit (Cardiology)on 10-23-2022 Follow-up visit Diagnoses/Problems [...] Metabolic Panel; Status:Active - Retrospective Authorization; Requested for:[id number]; Complete Blood Count; Status:Active - Retrospective Authorization; Requested for:[id number]; Class 2 severe obesity with serious comorbidity and body mass index (BMI) of 39.0 to 39.9 in adult Healthy Weight Tips; Status:Complete - Retrospective Authorization; Done: [id number] Some eating tips that can help you lose weight.; Status:Complete - Retrospective Authorization; Done: [id number] Edema of both legs Renew: Torsemide 20 [...] Metabolic Panel; Status:Active - Retrospective Authorization; Requested for:[id number]; Complete Blood Count; Status:Active - Retrospective Authorization; Requested for:[id number]; Essential hypertension, Permanent atrial fibrillation Renew: Metoprolol Tartrate 25 MG Oral Tablet; TAKE 1 TABLET TWICE DAILY SocHx: Former smoker Tobacco Use Screening; Status:Complete; Done: [id number] Patient Instructions Please bring all medicines, vitamins, [...] fibrillation managed by the Coumadin clinic at [facility]. Her weight is couple pounds below her previous visit. She has no orthopnea or PND. She is intolerant to CPAP machine and was again reminded to try harder to lose weight to minimize sleep apnea. Apart from the irregular rhythm and the lower extremity edema physical examination was unremarkable. She nevertheless has class II obesity. Assessment/recommend ations: 1?permanent atrial fibrillation that is asymptomatic. Heart rate is controlled on metoprolol 25 mg twice daily and on chronic anticoagulation with Coumadin managed by the Coumadin clinic at [facility]. 2?essential hypertension under control on metoprolol. 3? history of severe lower extremity edema improved on medical therapy. We will continue triple diuretics and follow renal function closely.. 4?morbid obesity status post bariatric surgery but remains in class II obesity, more aggressive weight loss was recommended 5?high risk medication with anticoagulation with no bleeding problems. 6?nuclear stress test in [place] several years ago was normal, no need [...] NEEDED. Magnesium (more content not included)... Normal [place] Tobacco Screening.on 023 Fall risk assessment a) No falls within the last year [facility] [employer] [address] DO Work Phone: Tobacco use status CPHS b) No [facility] [employer] 250 DO Work Phone: CBC AUTO DIFFon 08-02-2022 BASO # 0.0 103/ul Normal 0.0-0.1 [facility] Comment on above: Performed By: #### P T, PTT #### [facility] [address] [place] [address] Dr. Rey Stewart Basophils/100 WBC (Bld) 0.4 % Normal 0.2-2.0 [facility] Comment on above: Performed By: #### P T, PTT #### [facility] [address] [place] [address] Dr. Rey Stewart EO # 0.0 103/ul Normal 0.0-0.7 [facility] Comment on above: Performed By: #### P T, PTT #### [facility] [address] [place] [address] Dr. Rey Stewart Eosinophils/100 WBC (Bld) 0.4 % Critically low 0.9-7.0 [facility] Comment on above: Performed By: #### P T, PTT #### [facility] [address] [place] [address] Dr. Rey Stewart Erythrocyte distribution width (RBC) [Ratio] 13.9 % Normal 11.0-15.0 [facility] Comment on above: Performed By: #### P T, PTT #### [facility] [address] [place] [address] Dr. Rey Stewart Hematocrit (Bld) [Volume fraction] 37.6 % Normal 36.0-48.0 [facility] Comment on above: Performed By: #### P T, PTT #### [facility] [address] [place] [address] Dr. Rey Stewart Hemoglobin (Bld) [Mass/Vol] 12.1 g/dL Normal 12.0-16.0 [facility] Comment on above: Performed By: #### P T, PTT #### [facility] [address] [place] [address] Dr. Rey Stewart IG # 0.04 10e3/ul Critically high 0.00-0.03 [facility] Comment on above: Performed By: #### P T, PTT #### [facility] [address] [place] [address] Dr. Rey Stewart IG % 0.6 % Critically high 0.0-0.5 [facility] Comment on above: Performed By: #### P T, PTT #### [facility] [address] [place] [address] Dr. Rey Stewart LYMPH # 1.4 103/ul Normal 1.2-3.8 [facility] Comment on above: Performed By: #### P T, PTT #### [facility] [address] [place] [address] Dr. Rey Stewart Lymphocytes/100 WBC (Bld) 19.4 % Critically low 20.5-60.0 [facility] Comment on above: Performed By: #### P T, PTT #### [facility] [address] [place] [address] Dr. Rey Stewart MANUAL DIFF REQ NO Normal [facility] Comment on above: Performed By: #### P T, PTT #### [facility] [address] [place] [address] Dr. Rey Stewart MCH (RBC) [Entitic mass] 28.7 pg Normal 26.7-34.0 [facility] Comment on above: Performed By: #### P T, PTT #### [facility] [address] [place] [address] Dr. Rey Stewart MCHC (RBC) [Mass/Vol] 32.2 g/dL Normal 29.9-35.2 [facility] Comment on above: Performed By: #### P T, PTT #### [facility] [address] [place] [address] Dr. Rey Stewart MCV (RBC) [Entitic vol] 89.1 fL Normal 81.0-99.0 [facility] Comment on above: Performed By: #### P T, PTT #### [facility] [address] [place] [address] Dr. Rey Stewart MONO # 0.4 103/ul Normal 0.3-0.8 [facility] Comment on above: Performed By: #### P T, PTT #### [facility] [address] [place] [address] Dr. Rey Stewart Monocytes/100 WBC (Bld) 5.7 % Normal 1.7-12.0 [facility] Comment on above: Performed By: #### P T, PTT #### [facility] [address] [place] [address] Dr. Rey Stewart NEUT # 5.3 103/ul Normal 1.4-6.5 [facility] Comment on above: Performed By: #### P T, PTT #### [facility] [address] [place] [address] Dr. Rey Stewart Neutrophils/100 WBC (Bld) 73.5 % Normal 43.0-75.0 [facility] Comment on above: Performed By: #### P T, PTT #### [facility] [address] [place] [address] Dr. Rey Stewart Platelet mean volume (Bld) [Entitic vol] 9.8 fL Normal 9.5-13.5 [facility] Comment on above: Performed By: #### P T, PTT #### [facility] [address] [place] [address] Dr. Rey Stewart PLT 182 103/ul Normal 150-450 [facility] Comment on above: Performed By: #### P T, PTT #### [facility] [address] [place] [address] Dr. Rey Stewart RBC 4.22 106/ul Normal 4.20-5.40 [facility] Comment on above: Performed By: #### P T, PTT #### [facility] [address] [place] [address] Dr. Rey Stewart WBC 7.2 103/ul Normal 4.0-11.0 [facility] Comment on above: Performed By: #### P T, PTT #### [facility] [address] [place] [address] Dr. Rey Stewart FERRITINon 08-02-2022 Ferritin [Mass/Vol] 628.0 ng/mL Critically high 8.0-252.0 [facility] Comment on above: Performed By: #### B MP #### [facility] [address] [place] [address] Dr. Rey Stewart IRONon 08-02-2022 Iron [Mass/Vol] 43.0 ug/dL Critically low 50.0-170.0 [facility] Comment on above: Performed By: #### B MP #### [facility] [address] [place] [address] Dr. Rey Stewart MAGNESIUMon 08-02-2022 Magnesium [Mass/Vol] 1.7 mg/dL Critically low 1.8-2.4 [facility] Comment on above: Performed By: #### M G #### [facility] [address] [place] [address] Dr. Rey Stewart PTH INTACTon 06-06-2022 PTH, Intact 123 pg/mL Critically high 15-65 [facility] Comment on above: Performed By: #### P T, PTT #### [facility] [address] [place] [address] Dr. Rey Stewart PROF CHEM 8 (BAS METB)on Anion gap [Moles/Vol] 12.0 mmol/L Normal [facility] Comment on above: Performed By: #### B MP #### [facility] [address] [place] [address] Dr. Rey Stewart Calcium [Mass/Vol] 10.3 mg/dL Critically high 8.5-10.1 [facility] Comment on above: Performed By: #### B MP #### [facility] [address] [place] [address] [address] Rey Stewart Chloride [Moles/Vol] 104 mmol/L Normal 98-107 [facility] Comment on above: Performed By: #### B MP #### [facility] [address] [place] [address] [address] Rey Stewart CO2 [Moles/Vol] 32.7 mmol/L Critically high 21.0-32.0 [facility] Comment on above: Performed By: #### B MP #### [facility] [address] [place] [address] Dr. Rey Stewart Creatinine [Mass/Vol] 0.79 mg/dL Normal 0.55-1.02 [facility] Comment on above: Performed By: #### B MP #### [facility] [address] [place] [address] [address] Rey Stewart EGFR-AF [place]LANDER >60 Normal >=60 [facility] Comment on above: Performed By: #### B MP #### [facility] [address] [place] [address] [address] Rey Stewart EGFR-NON AF [place]ER >60 Normal >=60 [facility] Comment on above: Performed By: #### B MP #### [facility] [address] [place] [address] [address] Rey Stewart Glucose [Mass/Vol] 94 mg/dL Normal 74-106 [facility] Comment on above: Performed By: #### B MP #### [facility] [address] [place] [address] [address] Rey Stewart Potassium [Moles/Vol] 3.7 mmol/L Normal 3.5-5.1 [facility] Comment on above: Performed By: #### B MP #### [facility] [address] [place] [address] Dr. Rey Stewart Sodium [Moles/Vol] 145 mmol/L Normal 136-145 [facility] Comment on above: Performed By: #### B MP #### [facility] [address] [place] [address] [address] Rey Stewart Urea nitrogen [Mass/Vol] 33.0 mg/dL Critically high 7.0-18.0 [facility] Comment on above: Performed By: #### B MP #### [facility] [address] [id number] Rey Stewart Urea nitrogen/Creatinine [Mass ratio] 41.8 mg/mg Normal [facility] Comment on above: Performed By: #### B MP #### [facility] [address] [place] [address] Dr. Rey Stewart VITAMIN D 25 OHon 06-05-2022 VIT D 25-OH 76.2 ng/mL Normal [facility] Comment on above: Performed By: #### V ITAD #### [facility] [address] [place] [address] Dr. Rey Stewart VIT D RANGES SEE BELOW Normal [facility] Comment on above: Result Comment: <20 ng/mL Vit D deficient 20 - <30 ng/mL Vit D insufficient 30 - 100 ng/mL Vit D sufficient >100 ng/mL Potential Toxicity Performed By: #### V ITAD #### [facility] [address] [place] [address] Dr. Rey Stewart Office Visit (Cardiology)on 05-09-2022 [...] edema, the rest of examination was unremarkable. Assessment/recommend ations: 1?permanent atrial fibrillation that is asymptomatic. Heart rate is controlled on metoprolol 25 mg twice daily and on chronic anticoagulation with Coumadin managed by the Coumadin clinic at [facility]. 2?essential hypertension under control on [...] no bleeding problems. 6?nuclear stress test in [place] several years ago was normal, no need [...] 2.5 MG Oral [facility] Zinc 50 MG Oral TabletTAKE 1 TABLET DAILY. Allergies Medication Parafon Forte DSC TABS Allergy; Hives;; Recorded By: Judie Shelley; 03/15/2021 1:41:07 PM Social History Problems Caffeine use (V49.89) (Z78 (more content not included)... Normal [employer] CBC AUTO DIFFon 04-24-2022 BASO # 0.0 103/ul Normal 0.0-0.1 [facility] Comment on above: Performed By: #### B MP #### [facility] [address] [place] [address] Dr. Rey Stewart Basophils/100 WBC (Bld) 0.4 % Normal 0.2-2.0 [facility] Comment on above: Performed By: #### B MP #### [facility] [address] [place] [address] Dr. Rey Stewart EO # 0.0 103/ul Normal 0.0-0.7 [facility] Comment on above: Performed By: #### B MP #### [facility] [address] [place] [address] Dr. Rey Stewart Eosinophils/100 WBC (Bld) 0.6 % Critically low 0.9-7.0 [facility] Comment on above: Performed By: #### B MP #### [facility] [address] [place] [address] Dr. Rey Stewart Erythrocyte distribution width (RBC) [Ratio] 14.3 % Normal 11.0-15.0 [facility] Comment on above: Performed By: #### B MP #### [facility] [address] [place] [address] Dr. Rey Stewart Hematocrit (Bld) [Volume fraction] 37.5 % Normal 36.0-48.0 [facility] Comment on above: Performed By: #### B MP #### [facility] [address] [place] [address] Dr. Rey Stewart Hemoglobin (Bld) [Mass/Vol] 11.7 g/dL Critically low 12.0-16.0 [facility] Comment on above: Performed By: #### B MP #### [facility] [address] [place] [address] Dr. Rey Stewart IG # 0.02 10e3/ul Normal 0.00-0.03 [facility] Comment on above: Performed By: #### B MP #### [facility] [address] [place] [address] Dr. Rey Stewart IG % 0.3 % Normal 0.0-0.5 [facility] Comment on above: Performed By: #### B MP #### [facility] [address] [address] [address] Rey Stewart LYMPH # 1.4 103/ul Normal 1.2-3.8 [facility] Comment on above: Performed By: #### B MP #### [facility] [address] [address] [address] Rey Stewart Lymphocytes/100 WBC (Bld) 20.4 % Critically low 20.5-60.0 [facility] Comment on above: Performed By: #### B MP #### [facility] [address] [place] [address] Dr. Rey Stewart MANUAL DIFF REQ NO Normal [facility] Comment on above: Performed By: #### B MP #### [facility] [address] [place] [address] Dr. Rey Stewart MCH (RBC) [Entitic mass] 27.9 pg Normal 26.7-34.0 [facility] Comment on above: Performed By: #### B MP #### [facility] [address] [place] [address] Dr. Rey Stewart MCHC (RBC) [Mass/Vol] 31.2 g/dL Normal 29.9-35.2 [facility] Comment on above: Performed By: #### B MP #### [facility] [address] [place] [address] Dr. Rey Stewart MCV (RBC) [Entitic vol] 89.5 fL Normal 81.0-99.0 [facility] Comment on above: Performed By: #### B MP #### [facility] [address] [place] [address] Dr. Rey Stewart MONO # 0.5 103/ul Normal 0.3-0.8 [facility] Comment on above: Performed By: #### B MP #### [facility] [address] [place] [address] Dr. Rey Stewart Monocytes/100 WBC (Bld) 7.1 % Normal 1.7-12.0 [facility] Comment on above: Performed By: #### B MP #### [facility] [address] [address] [address] Rey Stewart NEUT # 5.0 103/ul Normal 1.4-6.5 [facility] Comment on above: Performed By: #### B MP #### [facility] [address] [address] [address] Rey Stewart Neutrophils/100 WBC (Bld) 71.2 % Normal 43.0-75.0 [facility] Comment on above: Performed By: #### B MP #### [facility] [address] [address] [address] Rey Stewart Platelet mean volume (Bld) [Entitic vol] 10.3 fL Normal 9.5-13.5 [facility] Comment on above: Performed By: #### B MP #### [facility] [address] [place] [address] Dr. Rey Stewart PLT 145 103/ul Critically low 150-450 [facility] Comment on above: Performed By: #### B MP #### [facility] [address] [place] [address] Dr. Rey Stewart RBC 4.19 106/ul Critically low 4.20-5.40 [facility] Comment on above: Performed By: #### B MP #### [facility] [address] [place] [address] Dr. Rey Stewart WBC 7.1 103/ul Normal 4.0-11.0 [facility] Comment on above: Performed By: #### B MP #### [facility] [address] [place] [address] Dr. Rey Stewart IRONon 04-24-2022 Iron [Mass/Vol] 35.0 ug/dL Critically low 50.0-170.0 [facility] Comment on above: Performed By: #### I DURAN #### [facility] [address] [place] [address] Dr. Rey Stewart MAGNESIUMon 04-24-2022 Magnesium [Mass/Vol] 1.8 mg/dL Normal 1.8-2.4 [facility] Comment on above: Performed By: #### B MP, MG #### [facility] [address] [place] [address] Dr. Rey Stewart PROF CHEM 8 (BAS METB)on Anion gap [Moles/Vol] 10.0 mmol/L Normal [facility] Comment on above: Performed By: #### B MP, MG #### [facility] [address] [place] [address] Dr. Rey Stewart Calcium [Mass/Vol] 10.1 mg/dL Normal 8.5-10.1 [facility] Comment on above: Performed By: #### B MP, MG #### [facility] [address] [place] [address] Dr. Rey Stewart Chloride [Moles/Vol] 103 mmol/L Normal 98-107 [facility] Comment on above: Performed By: #### B MP, MG #### [facility] [address] [place] [address] Dr. Rey Stewart CO2 [Moles/Vol] 29.7 mmol/L Normal 21.0-32.0 [facility] Comment on above: Performed By: #### B MP, MG #### [facility] [address] [place] [address] Dr. Rey Stewart Creatinine [Mass/Vol] 0.91 mg/dL Normal 0.55-1.02 [facility] Comment on above: Performed By: #### B MP, MG #### [facility] [address] [place] [address] Dr. Rey Stewart EGFR-AF COOK ISLANDER >60 Normal >=60 [facility] Comment on above: Performed By: #### B MP, MG #### [facility] [address] [place] [address] Dr. Rey Stewart EGFR-NON AF COOK ISLANDER >60 Normal >=60 [facility] Comment on above: Performed By: #### B MP, MG #### [facility] [address] [place] [address] Dr. Rey Stewart Glucose [Mass/Vol] 89 mg/dL Normal 74-106 [facility] Comment on above: Performed By: #### B MP, MG #### [facility] [address] [place] [address] Dr. Rey Stewart Potassium [Moles/Vol] 3.7 mmol/L Normal 3.5-5.1 [facility] Comment on above: Performed By: #### B MP, MG #### [facility] [address] [place] [address] Dr. Rey Stewart Sodium [Moles/Vol] 139 mmol/L Normal 136-145 [facility] Comment on above: Performed By: #### B MP, MG #### [facility] [address] [place] [address] Dr. Rey Stewart Urea nitrogen [Mass/Vol] 20.0 mg/dL Critically high 7.0-18.0 [facility] Comment on above: Performed By: #### B MP, MG #### [facility] [address] [place] [address] Dr. Rey Stewart Urea nitrogen/Creatinine [Mass ratio] 22.0 mg/mg Normal [facility] Comment on above: Performed By: #### B MP, MG #### [facility] [address] [place] [address] Dr. Rey Stewart VITAMIN B1 (THIAMINE)on Vit. B1, Whole Blood 223.9 nmol/L Critically high 66.5-200.0 [facility] Comment on above: Performed By: #### V ITB1T #### [facility] [address] [place] [address] Dr. Rey Stewart COPPER, SERUM or PLASMAon Copper, Serum 135 ug/dL Normal 80-158 [facility] Comment on above: Result Comment: Dete ction Limit = 5 Performed By: #### P T, PTT #### [facility] [address] [place] [address] Dr. Rey Stewart ZINC SERUM OR PLASMAon 02-07 Zinc, Plasma or Serum 67 ug/dL Normal 44-115 [facility] Comment on above: Result Comment: Dete ction Limit = 5 Performed By: #### Z inc #### [facility] [address] [place] [address] Dr. Rey Stewart CBC AUTO DIFFon 02-05-2022 BASO # 0.0 103/ul Normal 0.0-0.1 [facility] Comment on above: Performed By: #### B MP #### [facility] [address] [place] [address] Dr. Rey Stewart Basophils/100 WBC (Bld) 0.7 % Normal 0.2-2.0 [facility] Comment on above: Performed By: #### B MP #### [facility] [address] [place] [address] Dr. Rey Stewart EO # 0.0 103/ul Normal 0.0-0.7 [facility] Comment on above: Performed By: #### B MP #### [facility] [address] [place] [address] Dr. Rey Stewart Eosinophils/100 WBC (Bld) 0.4 % Critically low 0.9-7.0 [facility] Comment on above: Performed By: #### B MP #### [facility] [address] [place] [address] Dr. Rey Stewart Erythrocyte distribution width (RBC) [Ratio] 13.9 % Normal 11.0-15.0 [facility] Comment on above: Performed By: #### B MP #### [facility] [address] [place] [address] Dr. Rey Stewart Hematocrit (Bld) [Volume fraction] 34.5 % Critically low 36.0-48.0 [facility] Comment on above: Performed By: #### B MP #### [facility] [address] [place] [address] Dr. Rey Stewart Hemoglobin (Bld) [Mass/Vol] 10.8 g/dL Critically low 12.0-16.0 [facility] Comment on above: Performed By: #### B MP #### [facility] [address] [place] [address] Dr. Rey Stewart IG # 0.01 10e3/ul Normal 0.00-0.03 [facility] Comment on above: Performed By: #### B MP #### [facility] [address] [place] [address] Dr. Rey Stewart IG % 0.2 % Normal 0.0-0.5 [facility] Comment on above: Performed By: #### B MP #### [facility] [address] [place] [address] Dr. Rey Stewart LYMPH # 1.0 103/ul Critically low 1.2-3.[address] [facility] Comment on above: Performed By: #### B MP #### [facility] [address] [place] [address] Dr. Rey Stewart Lymphocytes/100 WBC (Bld) 21.7 % Normal 20.5-60.0 [facility] Comment on above: Performed By: #### B MP #### [facility] [address] [place] [address] Dr. Rey Stewart MANUAL DIFF REQ NO Normal [facility] Comment on above: Performed By: #### B MP #### [facility] [address] [place] [address] Dr. Rey Stewart MCH (RBC) [Entitic mass] 28.0 pg Normal 26.7-34.0 [facility] Comment on above: Performed By: #### B MP #### [facility] [address] [place] [address] Dr. Rey Stewart MCHC (RBC) [Mass/Vol] 31.3 g/dL Normal 29.9-35.2 [facility] Comment on above: Performed By: #### B MP #### [facility] [address] [place] [address] Dr. Rey Stewart MCV (RBC) [Entitic vol] 89.4 fL Normal 81.0-99.0 [facility] Comment on above: Performed By: #### B MP #### [facility] [address] [place] [address] Dr. Rey Stewart MONO # 0.4 103/ul Normal 0.3-0.8 [facility] Comment on above: Performed By: #### B MP #### [facility] [address] [place] [address] Dr. Rey Stewart Monocytes/100 WBC (Bld) 9.3 % Normal 1.7-12.0 [facility] Comment on above: Performed By: #### B MP #### [facility] [address] [place] [address] Dr. Rey Stewart NEUT # 3.1 103/ul Normal 1.4-6.5 [facility] Comment on above: Performed By: #### B MP #### [facility] [address] [place] [address] Dr. Rey Stewart Neutrophils/100 WBC (Bld) 67.7 % Normal 43.0-75.0 [facility] Comment on above: Performed By: #### B MP #### [facility] [address] [place] [address] Dr. Rey Stewart Platelet mean volume (Bld) [Entitic vol] 10.2 fL Normal 9.5-13.5 [facility] Comment on above: Performed By: #### B MP #### [facility] [address] [place] [address] Dr. Rey Stewart PLT 152 103/ul Normal 150-450 [facility] Comment on above: Performed By: #### B MP #### [facility] [address] [place] [address] Dr. Rey Stewart RBC 3.86 106/ul Critically low 4.20-5.40 [facility] Comment on above: Performed By: #### B MP #### [facility] [address] [place] [address] Dr. Rey Stewart WBC 4.6 103/ul Normal 4.0-11.0 [facility] Comment on above: Performed By: #### B MP #### [facility] [address] [place] [address] Dr. Rey Stewart FERRITINon 02-05-2022 Ferritin [Mass/Vol] 680.0 ng/mL Critically high 8.0-252.0 [facility] Comment on above: Performed By: #### P T, PTT #### [facility] [address] [place] [address] Dr. Rey Stewart IRON AND TIBCon 02-05-2022 % SATURATION 10.6 % Normal [facility] Comment on above: Performed By: #### P T, PTT #### [facility] [address] [place] [address] Dr. Rey Stewart Iron [Mass/Vol] 28.0 ug/dL Critically low 50.0-170.0 [facility] Comment on above: Performed By: #### P T, PTT #### [facility] [address] [place] [address] Dr. Rey Stewart TIBC DIRECT 263.0 ug/dL Normal 250.0-450.0 [facility] Comment on above: Performed By: #### P T, PTT #### [facility] [address] [place] [address] Dr. Rey Stewart MAGNESIUMon 02-05-2022 Magnesium [Mass/Vol] 1.4 mg/dL Critically low 1.8-2.4 [facility] Comment on above: Performed By: #### B MP #### [facility] [address] [place] [address] Dr. Rey Stewart PHOSPHORUSon 02-05-2022 Phosphate [Mass/Vol] 2.9 mg/dL Normal 2.6-4.7 [facility] Comment on above: Performed By: #### B MP #### [facility] [address] [place] [address] Dr. Rey Stewart PROF 14(COMP METB)on 022 Albumin [Mass/Vol] 3.1 g/dL Critically low 3.4-5.0 [facility] Comment on above: Performed By: #### B MP #### [facility] [address] [place] [address] Dr. Rey Stewart Albumin/Globulin [Mass ratio] 0.8 {ratio} Normal [facility] Comment on above: Performed By: #### B MP #### [facility] [address] [place] [address] Dr. Rey Stewart ALP [Catalytic activity/Vol] 60 U/L Normal 46-116 [facility] Comment on above: Performed By: #### B MP #### [facility] [address] [address] [address] Rey Stewart ALT [Catalytic activity/Vol] 18 U/L Normal 14-59 [facility] Comment on above: Performed By: #### B MP #### [facility] [address] [address] [address] Rey Stewart Anion gap [Moles/Vol] 8.9 mmol/L Normal [facility] Comment on above: Performed By: #### B MP #### [facility] [address] [address] [address] Rey Stewart AST [Catalytic activity/Vol] 24 U/L Normal 15-37 [facility] Comment on above: Performed By: #### B MP #### [facility] [address] [place] [address] Dr. eRy Stewart Bilirubin [Mass/Vol] 0.9 mg/dL Normal 0.2-1.0 [facility] Comment on above: Performed By: #### B MP #### [facility] [address] [place] [address] Dr. Rey Stewart Calcium [Mass/Vol] 9.8 mg/dL Normal 8.5-10.1 [facility] Comment on above: Performed By: #### B MP #### [facility] [address] [address] [address] Rey Stewart Chloride [Moles/Vol] 100 mmol/L Normal 98-107 [facility] Comment on above: Performed By: #### B MP #### [facility] [address] [address] [address] Rey Stewart CO2 [Moles/Vol] 32.7 mmol/L Critically high 21.0-32.0 [facility] Comment on above: Performed By: #### B MP #### [facility] [address] [place] [address] Dr. Rey Stewart Creatinine [Mass/Vol] 1.02 mg/dL Normal 0.55-1.02 [facility] Comment on above: Performed By: #### B MP #### [facility] [address] [address] [address] Rey Stewart EGFR-AF COOK ISLANDER >60 Normal >=60 [facility] Comment on above: Performed By: #### B MP #### [facility] [address] [address] [address] Rey Stewart EGFR-NON AF [place]OOK ISLANDER 54 mL/min/1.73m2 Critically low >=60 [facility] Comment on above: Performed By: #### B MP #### [facility] [address] [address] [address] Rey Stewart Globulin (S) [Mass/Vol] 4.1 g/dL Normal [facility] Comment on above: Performed By: #### B MP #### [facility] [address] [address] [address] Rey Stewart Glucose [Mass/Vol] 96 mg/dL Normal 74-106 [facility] Comment on above: Performed By: #### B MP #### [facility] [address] [address] [address] Rey Stewart Potassium [Moles/Vol] 3.6 mmol/L Normal 3.5-5.1 [facility] Comment on above: Performed By: #### B MP #### [facility] [address] [address] [address] Rey Stewart Protein [Mass/Vol] 7.2 g/dL Normal 6.4-8.2 [facility] Comment on above: Performed By: #### B MP #### [facility] [address] [address] [address] Rey Stewart Sodium [Moles/Vol] 138 mmol/L Normal 136-145 [facility] Comment on above: Performed By: #### B MP #### [facility] [address] [address] [address] Rey Stewart Urea nitrogen [Mass/Vol] 28.0 mg/dL Critically high 7.0-18.0 [facility] Comment on above: Performed By: #### B MP #### [facility] [address] [address] [address] Rey Stewart Urea nitrogen/Creatinine [Mass ratio] 27.5 mg/mg Normal [facility] Comment on above: Performed By: #### B MP #### [facility] [address] [place] [address] Dr. Rey Stewart VIT B12 AND FOLATEon 022 Cobalamin (Vitamin B12) [Mass/Vol] 1002.0 pg/mL Critically high 193.0-986.0 [facility] Comment on above: Performed By: #### P T, PTT #### [facility] [address] [place] [address] Dr. Rey Stewart FOLATE 20.30 ng/mL Normal 8.60-58.90 [facility] Comment on above: Performed By: #### P T, PTT #### [facility] [address] [place] [address] Dr. Rey Stewart VITAMIN D 25 OHon 02-05-2022 VIT D 25-OH 73.5 ng/mL Normal [facility] Comment on above: Performed By: #### P T, PTT #### [facility] [address] [place] [address] Dr. Rey Stewart VIT D RANGES SEE BELOW Normal [facility] Comment on above: Result Comment: <20 ng/mL Vit D deficient 20 - <30 ng/mL Vit D insufficient 30 - 100 ng/mL Vit D sufficient >100 ng/mL Potential Toxicity Performed By: #### P T, PTT #### [facility] [address] [place] [address] Dr. Rey Stewart PROF CHEM 8 (BAS METB)on Anion gap [Moles/Vol] 7.5 mmol/L Normal [facility] Comment on above: Performed By: #### P T, PTT #### [facility] [address] [place] [address] Dr. Rey Stewart Calcium [Mass/Vol] 10.1 mg/dL Normal 8.5-10.1 [facility] Comment on above: Performed By: #### P T, PTT #### [facility] [address] [place] [address] Dr. Rey Stewart Chloride [Moles/Vol] 101 mmol/L Normal 98-107 [facility] Comment on above: Performed By: #### P T, PTT #### [facility] [address] [address] [address] Rey Stewart CO2 [Moles/Vol] 34.1 mmol/L Critically high 21.0-32.0 [facility] Comment on above: Performed By: #### P T, PTT #### [facility] [address] [address] [address] Rey Stewart Creatinine [Mass/Vol] 0.85 mg/dL Normal 0.55-1.02 [facility] Comment on above: Performed By: #### P T, PTT #### [facility] [address] [place] [address] Dr. Rey Stewart EGFR-AF COOK ISLANDER >60 Normal >=60 [facility] Comment on above: Performed By: #### P T, PTT #### [facility] [address] [address] [address] Rey Stewart EGFR-NON AF COOK ISLANDER >60 Normal >=60 [facility] Comment on above: Performed By: #### P T, PTT #### [facility] [address] [place] [address] Dr. Rey Stewart Glucose [Mass/Vol] 77 mg/dL Normal 74-106 [facility] Comment on above: Performed By: #### P T, PTT #### [facility] [address] [place] [address] Dr. Rey Stewart Potassium [Moles/Vol] 3.6 mmol/L Normal 3.5-5.1 [facility] [facility] Comment on above: Performed By: #### P T, PTT #### [facility] [address] [place] [address] Dr. Rey Stewart Sodium [Moles/Vol] 139 mmol/L Normal 136-145 [facility] Comment on above: Performed By: #### P T, PTT #### [facility] [address] [place] [address] Dr. Rey Stewart Urea nitrogen [Mass/Vol] 26.0 mg/dL Critically high 7.0-18.0 [facility] Comment on above: Performed By: #### P T, PTT #### [facility] [id number] Rey Stewart Urea nitrogen/Creatinine [Mass ratio] 30.6 mg/mg Normal [facility] Comment on above: Performed By: #### P T, PTT #### [facility] [id number] Rey Stewart CT HEAD WO CONon [...] HARPREET QUINTERO Date: 2021-11-10 14:33 Normal [facility] PROTIMEon 11-10-2021 INR Coag (PPP) [Relative time] 2.75 {INR} Normal [facility] Comment on above: Performed By: #### P T, PTT #### [facility] [address] [place] [id number] [address] Rey Stewart INR GUIDELINES SEE BELOW Normal [facility] Comment on above: Result Comment: MOUNIKA RED INR: 2.0 - 3.0 CONDITIONS NOT LISTED BELOW 2.5 - 3.5 FOR PROSTHETIC HEART VALVE REPLACEMENT 2.5 - 3.5 RECURRENT THROMBOSIS Performed By: #### P T, PTT #### [facility] [address] [place], [place] [address] Dr. Rey Stewart PT Coag (PPP) [Time] 27.8 s Critically high 9.0-11.6 [facility] Comment on above: Performed By: #### P T, PTT #### [facility] [address] [place] [address] Dr. Rey Stewart PTTon 11-10-2021 aPTT Coag (Bld) [Time] 48.4 s Critically high 22.3-36.2 [facility] Comment on above: Performed By: #### P T, PTT #### [facility] [address] [place] [address] Dr. Rey Stewart POTASSIUMon 11-09-2021 Potassium [Moles/Vol] 3.4 mmol/L Critically low 3.5-5.1 [facility] Comment on above: Performed By: #### B MP #### [facility] [address] [place] [address] Dr. Rey Stewart PROF CHEM 8 (BAS METB)on Anion gap [Moles/Vol] 9.7 mmol/L Normal [facility] Comment on above: Performed By: #### P T, PTT #### [facility] [address] [place] [address] Dr. Rey Stewart Calcium [Mass/Vol] 10.2 mg/dL Critically high 8.5-10.1 [facility] Comment on above: Performed By: #### P T, PTT #### [facility] [address] [place] [address] Dr. Rey Stewart Chloride [Moles/Vol] 98 mmol/L Normal 98-107 [facility] Comment on above: Performed By: #### P T, PTT #### [facility] [address] [place] [address] Dr. Rey Stewart CO2 [Moles/Vol] 36.0 mmol/L Critically high 21.0-32.0 [facility] Comment on above: Performed By: #### P T, PTT #### [facility] [address] [place] [address] Dr. Rey Stewart Creatinine [Mass/Vol] 0.99 mg/dL Normal 0.55-1.02 [facility] Comment on above: Performed By: #### P T, PTT #### [facility] [address] [address] [address] Rey Stewart EGFR-AF [place]ER >60 Normal >=60 [facility] Comment on above: Performed By: #### P T, PTT #### [facility] [address] [address] [address] Rey Stewart EGFR-NON AF [place] 56 mL/min/1.73m2 Critically low >=60 [facility] Comment on above: Performed By: #### P T, PTT #### [facility] [address] [address] [address] Rey Stewart Glucose [Mass/Vol] 98 mg/dL Normal 74-106 [facility] Comment on above: Performed By: #### P T, PTT #### [facility] [address] [address] [address] Rey Stewart Potassium [Moles/Vol] 2.6 mmol/L Critically low 3.5-5.1 [facility] Comment on above: Performed By: #### P T, PTT #### [facility] [address] [address] [address] Rey Stewart Sodium [Moles/Vol] 139 mmol/L Normal 136-145 [facility] Comment on above: Performed By: #### P T, PTT #### [facility] [address] [address] [address] Rey Stewart Urea nitrogen [Mass/Vol] 37.0 mg/dL Critically high 7.0-18.0 [facility] Comment on above: Performed By: #### P T, PTT #### [facility] [address] [address] [address] Rey Stewart Urea nitrogen/Creatinine [Mass ratio] 37.4 mg/mg Normal [facility] Comment on above: Performed By: #### P T, PTT #### [facility] [address] [address] [address] Rey Stewart Office Visit (Cardiology)on 11-01-2021 [...] Weight Tips; Status:Complete - Retrospective Authorization; Done: [id number] Some eating tips that can help you lose weight.; Status:Complete - Retrospective Authorization; Done: [id number] SocHx: Former smoker Tobacco Use Screening; Status:Complete; Done: [id number] Unlinked Stop: metOLazone 5 MG Oral Tablet [...] herself and call office with update. Dr. Mily Hackett MD will decide if rx if Metolazone [...] therapy managed by the Coumadin clinic at [facility]. She does have chronic lower [...] and clear lungs. She has no tachycardia. Assessment/recommend ations: 1?permanent atrial fibrillation that is asymptomatic. Heart rate is controlled on metoprolol 25 mg twice daily and on chronic anticoagulation with Coumadin managed by the Coumadin clinic at [facility]. We agreed to pursue rate [...] no bleeding problems. 6?nuclear stress test in [place] several years ago was normal, no need [...] 2.5 MG [facility] (more content not included)... Normal [facility] Tobacco Screening.on Fall risk assessment a) No falls within the last year [facility] DO Work Phone: Tobacco use status [facility] b) No [facility] DO Work Phone: Tobacco Screening.on Adult depression screening assessment No [facility] DO Work Phone: Fall risk assessment a) No falls within the last year [facility] DO Work Phone: Tobacco use status [facility] b) No [facility] DO Work Phone: Vital Signs Date Time Vital Sign Value Performing Clinician Facility 07-07-2024 09:38-0400 Body height 162.6 cm Marla WILSON Work Phone: [facility] 07-07-2024 09:38-0400 Body mass index (BMI) [Ratio] 41.33 kg/m2 Marla WILSON Work Phone: [facility] 07-07-2024 09:38-0400 Body weight 109.23 kg Marla WILSON Work Phone: [facility] 07-07-2024 09:38-0400 Diastolic blood pressure 76 mm[Hg] Marla WILSON Work Phone: [facility] 07-07-2024 09:38-0400 Heart rate 58 /min Marla WILSON Work Phone: [facility] 07-07-2024 09:38-0400 Respiratory rate 16 /min Marla WILSON Work Phone: [facility] 07-07-2024 09:38-0400 SaO2% (BldA) [Mass fraction] 95 % Marla Knight PA Work Phone: [facility] 07-07-2024 09:38-0400 Systolic blood pressure 112 mm[Hg] Marla Knight PA Work Phone: [facility] 07-02-2024 09:39-0400 Body height 162.6 cm Lazaro Milian DO Work Phone: [facility] 07-02-2024 09:39-0400 Body mass index (BMI) [Ratio] 42.57 kg/m2 Lazaro Milian DO Work Phone: [facility] 07-02-2024 09:39-0400 Body weight 112.49 kg Lazaro Milian DO Work Phone: [facility] 06-24-2024 13:32-0400 Body height 162.6 cm Emily Park [employer] Work Phone: [facility] 06-24-2024 13:32-0400 Body mass index (BMI) [Ratio] 42.64 kg/m2 Emily Park [employer] Work Phone: [facility] 06-24-2024 13:32-0400 Body weight 112.67 kg Emily Park [employer] Work Phone: [facility] 06-24-2024 13:32-0400 Diastolic blood pressure 62 mm[Hg] Emily Park [employer] Work Phone: [facility] 06-24-2024 13:32-0400 Heart rate 62 /min Emily Park [employer] Work Phone: [facility] 06-24-2024 13:32-0400 Respiratory rate 16 /min Emily Park [employer] Work Phone: [facility] 06-24-2024 13:32-0400 SaO2% (BldA) [Mass fraction] 98 % Emily Park [employer] Work Phone: [facility] 06-24-2024 13:32-0400 Systolic blood pressure 104 mm[Hg] Emily Park [employer] Work Phone: [facility] 06-23-2024 09:37-0400 Body mass index (BMI) [Ratio] 41.49 kg/m2 Trung Rivas MD Work Phone: [facility] 06-23-2024 09:37-0400 Body weight 113.08 kg Trung Rivas MD Work Phone: [facility] 06-23-2024 09:37-0400 Diastolic blood pressure 70 mm[Hg] Trung Rivas MD Work Phone: [facility] 06-23-2024 09:37-0400 Systolic blood pressure 124 mm[Hg] Trung Rivas MD Work Phone: [facility] 04-30-2024 13:08-0500 Body height 162.6 cm Emily Park [employer] Work Phone: [facility] 04-30-2024 13:08-0500 Body mass index (BMI) [Ratio] 43.08 kg/m2 Emily Park [employer] Work Phone: [facility] 04-30-2024 13:08-0500 Body weight 113.85 kg Emily Park [employer] Work Phone: [facility] 04-30-2024 13:08-0500 Diastolic blood pressure 72 mm[Hg] Emily Park [employer] Work Phone: [facility] 04-30-2024 13:08-0500 Heart rate 69 /min Emily Park [employer] Work Phone: [facility] 04-30-2024 13:08-0500 SaO2% (BldA) [Mass fraction] 94 % Emily Park [employer] Work Phone: [facility] 04-30-2024 13:08-0500 Systolic blood pressure 128 mm[Hg] Emily Park [employer] Work Phone: [facility] 04-16-2024 15:26-0500 Body height 162.6 cm Emily Park [employer] Work Phone: [facility] 04-16-2024 15:26-0500 Body temperature 97.39 [degF] Emily Park [employer] Work Phone: [facility] 04-16-2024 15:26-0500 Diastolic blood pressure 72 mm[Hg] Emily Park [employer] Work Phone: [facility] 04-16-2024 15:26-0500 Heart rate 68 /min Emily Park [employer] Work Phone: [facility] 04-16-2024 15:26-0500 Systolic blood pressure 128 mm[Hg] Emily Park [employer] Work Phone: [facility] 03-18-2024 09:38-0500 Body mass index (BMI) [Ratio] 41.88 kg/m2 Sherlyn Rinkes DO Work Phone: [facility] 03-18-2024 09:38-0500 Body weight 110.68 kg Sherlyn Rinkes DO Work Phone: [facility] 03-18-2024 09:38-0500 Diastolic blood pressure 78 mm[Hg] Sherlyn Rinkes DO Work Phone: [facility] 03-18-2024 09:38-0500 Systolic blood pressure 136 mm[Hg] Sherlyn Rinkes DO Work Phone: [facility] 03-12-2024 09:08-0500 Body height 162.6 cm Noel Farnsworth MD Work Phone: [facility] 03-12-2024 09:08-0500 Body mass index (BMI) [Ratio] 42.57 kg/m2 Noel Farnsworth MD Work Phone: [facility] 03-12-2024 09:08-0500 Body temperature 97.81 [degF] Noel Farnsworth MD Work Phone: [facility] 03-12-2024 09:08-0500 Body weight 112.49 kg Noel Farnsworth MD Work Phone: [facility] 03-12-2024 09:08-0500 Diastolic blood pressure 70 mm[Hg] Noel Farnsworth MD Work Phone: [facility] 03-12-2024 09:08-0500 Heart rate 76 /min Noel Farnsworth MD Work Phone: [facility] 03-12-2024 09:08-0500 Systolic blood pressure 122 mm[Hg] Noel Farnsworth MD Work Phone: [facility] 02-28-2024 08:55-0500 Body height 162.6 cm Noel Farnsworth MD Work Phone: [facility] 02-28-2024 08:55-0500 Body mass index (BMI) [Ratio] 42.74 kg/m2 Noel Farnsworth MD Work Phone: [facility] 02-28-2024 08:55-0500 Body temperature 96.91 [degF] Noel Farnsworth MD Work Phone: [facility] 02-28-2024 08:55-0500 Body weight 112.95 kg Noel Farnsworth MD Work Phone: [facility] 02-28-2024 08:55-0500 Diastolic blood pressure 70 mm[Hg] Noel Farnsworth MD Work Phone: [facility] 02-28-2024 08:55-0500 Heart rate 76 /min Noel Farnsworth MD Work Phone: [facility] 02-28-2024 08:55-0500 SaO2% (BldA) [Mass fraction] 97 % Noel Farnsworth MD Work Phone: [facility] 02-28-2024 08:55-0500 Systolic blood pressure 126 mm[Hg] Noel Farnsworth MD Work Phone: [facility] 01-03-2024 12:02-0400 Body height 162.6 cm Marla WILSON Work Phone: [facility] 01-03-2024 12:02-0400 Body mass index (BMI) [Ratio] 41.37 kg/m2 Marla WILSON Work Phone: [facility] 01-03-2024 12:02-0400 Body temperature 98.4 [degF] Marla WILSON Work Phone: [facility] 01-03-2024 12:02-0400 Body weight 109.32 kg Marla Hemmer PA Work Phone: [facility] 01-03-2024 12:02-0400 Diastolic blood pressure 66 mm[Hg] Marla Hemmer PA Work Phone: [facility] 01-03-2024 12:02-0400 Heart rate 64 /min Marla Hemmer PA Work Phone: [facility] 01-03-2024 12:02-0400 Respiratory rate 16 /min Marla Hemmer PA Work Phone: [facility] 01-03-2024 12:02-0400 SaO2% (BldA) [Mass fraction] 96 % Marla Hemmer PA Work Phone: [facility] 01-03-2024 12:02-0400 Systolic blood pressure 104 mm[Hg] Marla Hemmer PA Work Phone: [facility] 01-02-2024 09:00-0400 Body height 162.6 cm Lazaro Milian DO Work Phone: [facility] 01-02-2024 09:00-0400 Body mass index (BMI) [Ratio] 41.88 kg/m2 Lazaro Milian DO Work Phone: [facility] 01-02-2024 09:00-0400 Body weight 110.68 kg Lazaro Milian DO Work Phone: [facility] 11-28-2023 09:41-0400 Body height 165.1 cm Mily Hackett MD Work Phone: [facility] 11-28-2023 09:41-0400 Body mass index (BMI) [Ratio] 40.6 kg/m2 Mily Hackett MD Work Phone: [facility] 11-28-2023 09:41-0400 Body weight 110.68 kg Mily Hackett MD Work Phone: [facility] 11-28-2023 09:41-0400 Diastolic blood pressure 60 mm[Hg] Mily Hackett MD Work Phone: [facility] 11-28-2023 09:41-0400 Heart rate 66 /min Mily Hackett MD Work Phone: [facility] 11-28-2023 09:41-0400 Systolic blood pressure 102 mm[Hg] Mily Hackett MD Work Phone: [facility] 10-29-2023 09:37-0400 Body mass index (BMI) [Ratio] 41.92 kg/m2 Denisha Gracia [employer] Work Phone: [facility] 10-29-2023 09:37-0400 Body weight 110.77 kg Denisha Gracia [employer] Work Phone: [facility] 10-29-2023 09:37-0400 Diastolic blood pressure 75 mm[Hg] Denisha rGacia [employer] Work Phone: [facility] 10-29-2023 09:37-0400 Heart rate 50 /min Denisha Gracia [employer] Work Phone: [facility] 10-29-2023 09:37-0400 Respiratory rate 16 /min Denisha Germaine [employer] Work Phone: [facility] 10-29-2023 09:37-0400 SaO2% (BldA) [Mass fraction] 98 % Denisha Gracia [employer] Work Phone: [facility] 10-29-2023 09:37-0400 Systolic blood pressure 120 mm[Hg] Denisha Gracia [employer] Work Phone: [facility] 05-13-2023 14:42-0500 Diastolic blood pressure 60 mm[Hg] Mily Hackett MD Work Phone: [facility] 05-13-2023 14:42-0500 Systolic blood pressure 110 mm[Hg] Mily Hackett MD Work Phone: [facility] 05-13-2023 14:20-0500 Body height 165.1 cm Mily Hackett MD Work Phone: [facility] 05-13-2023 14:20-0500 Body mass index (BMI) [Ratio] 39.94 kg/m2 Mily Hackett MD Work Phone: [facility] 05-13-2023 14:20-0500 Body weight 108.86 kg Mily Hackett MD Work Phone: [facility] 05-13-2023 14:20-0500 Heart rate 56 /min Mily Hackett MD Work Phone: [facility] 04-17-2023 14:08-0500 Body height 162.6 cm Noel Farnsworth MD Work Phone: [facility] 04-17-2023 14:08-0500 Body mass index (BMI) [Ratio] 41.37 kg/m2 Noel Farnsworth MD Work Phone: [facility] 04-17-2023 14:08-0500 Body temperature 98.71 [degF] Noel Farnsworth MD Work Phone: [facility] 04-17-2023 14:08-0500 Body weight 109.32 kg Noel Farnsworth MD Work Phone: [facility] 04-17-2023 14:08-0500 Diastolic blood pressure 80 mm[Hg] Noel Farnsworth MD Work Phone: [facility] 04-17-2023 14:08-0500 Heart rate 82 /min Noel Farnsworth MD Work Phone: [facility] 04-17-2023 14:08-0500 SaO2% (BldA) [Mass fraction] 98 % Noel Farnsworth MD Work Phone: [facility] 04-17-2023 14:08-0500 Systolic blood pressure 128 mm[Hg] Noel Farnsworth MD Work Phone: [facility] 10-23-2022 11:59-0400 Body height 165.1 cm Noel Farnsworth Work Phone: [facility] DO Work Phone: 10-23-2022 11:59-0400 Body mass index (BMI) [Ratio] 39.44 kg/m2 Noel Farnsworth Work Phone: [facility] DO Work Phone: 10-23-2022 11:59-0400 Body surface area Derived from formula 2.13 m2 Noel Farnsworth Work Phone: [facility] DO Work Phone: 10-23-2022 11:59-0400 Body weight 107.5 kg Noel Farnsworth Work Phone: [facility] DO Work Phone: 10-23-2022 11:59-0400 Diastolic blood pressure 68 mm[Hg] Noel Farnsworth Work Phone: [facility] DO Work Phone: 10-23-2022 11:59-0400 Heart rate 72 /min Noel Farnsworth Work Phone: [facility] DO Work Phone: 10-23-2022 11:59-0400 Systolic blood pressure 110 mm[Hg] Noel Farnsworth Work Phone: [facility] DO Work Phone: 11-01-2021 09:33-0400 Body height 165.1 cm Mily Hackett MD Work Phone: [facility] DO Work Phone: 11-01-2021 09:33-0400 Body mass index (BMI) [Ratio] 41.81 kg/m2 Mily Hackett MD Work Phone: [facility] DO Work Phone: 11-01-2021 09:33-0400 Body surface area Derived from formula 2.18 m2 Mily Hackett MD Work Phone: [facility] DO Work Phone: 11-01-2021 09:33-0400 Body weight 113.97 kg Mily Hackett MD Work Phone: [facility] DO Work Phone: 11-01-2021 09:33-0400 Diastolic blood pressure 62 mm[Hg] Mily Hackett MD Work Phone: [facility] DO Work Phone: 11-01-2021 09:33-0400 Heart rate 60 /min Mily Hackett MD Work Phone: [facility] DO Work Phone: 11-01-2021 09:33-0400 Systolic blood pressure 108 mm[Hg] Mily Hackett MD Work Phone: [facility] DO Work Phone: 04-26-2021 11:21-0500 Body height 165.1 cm Mily Hackett MD Work Phone: [facility] DO Work Phone: 04-26-2021 11:21-0500 Body mass index (BMI) [Ratio] 42.77 kg/m2 Mily Hackett MD Work Phone: [facility] DO Work Phone: 04-26-2021 11:21-0500 Body surface area Derived from formula 2.2 m2 Mily Hackett MD Work Phone: [facility] DO Work Phone: 04-26-2021 11:21-0500 Body weight 116.58 kg Mily Hackett MD Work Phone: [facility] DO Work Phone: 04-26-2021 11:21-0500 Diastolic blood pressure 84 mm[Hg] Mily Hackett MD Work Phone: [facility] DO Work Phone: 04-26-2021 11:21-0500 Heart rate 59 /min Mily Hackett MD Work Phone: [facility] DO Work Phone: 04-26-2021 11:21-0500 Systolic blood pressure 113 mm[Hg] Mily Hackett MD Work Phone: [facility] DO Work Phone: Encounters Encounter Date Encounter Type Care Provider Facility Start: 07-20-2024 ambulatory Emily Park Facility:[facility] Start: 07-07-2024 End: 07-07-2024 BamEasilyDoo flowsheet Marla WILSON Work Phone: [facility] Start: 07-07-2024 End: 07-07-2024 Bamboo flowsheet Marla WILSON Work Phone: [facility] Start: 07-07-2024 End: 07-07-2024 Patient encounter procedure Marla WILSON Work Phone: [facility] Comment on above: Medicare annual [facility], subsequent (Primary Dx); ACP (advance care planning); Elevated AST (SGOT); Other problems related to lifestyle; Primary hypertension (CMS/HCC); Neck pain; Bilateral carpal tunnel syndrome; Lumbar radiculopathy; Obstructive sleep apnea syndrome; Right cervical radiculopathy; Mild intermittent asthmatic bronchitis without complication (CMS/HCC); Longstanding persistent atrial fibrillation (CMS/HCC); Chronic venous insufficiency; Mitral valve prolapse; Abnormal intestinal absorption (CMS/HCC); Gastroesophageal reflux disease without esophagitis; Intestinal disaccharidase deficiencies and disaccharide malabsorption; Atrophy of vagina; Urge incontinence of urine; Acquired pes planus of left foot; Acquired trigger finger; Cervical paraspinal muscle spasm; Cochlear hydrops of right ear; Cramp of limb; Disorder of bone and cartilage; Edema of both legs; Internal derangement of left shoulder; Left Achilles tendinitis; Monoarticular arthritis; Pes planus of both feet; Plantar fasciitis, bilateral; Primary osteoarthritis of right knee; Right anterior shoulder pain; Senile osteoporosis ([facility]); Hyperparathyroidism ([facility]); Morbid obesity ([facility]); Non-toxic multinodular goiter ([facility]); BMI 40.0-44.9, adult ([facility]); Subclinical hypothyroidism ([facility]); Vitamin B-complex deficiency; Vitamin D deficiency; Other iron deficiency anemia; Thrombocytopenia ([facility]); Other chronic sinusitis; Anticoagulated; Elevated levels of transaminase & lactic acid dehydrogenase; Other fatigue; Fibrocystic breast changes, unspecified laterality; Former smoker; H/O thyroidectomy; Height loss; High risk medication use; History of gastric bypass; Hypercalcemia; Hypokalemia; Left-sided tinnitus; LPRD (laryngopharyngeal reflux disease); Chronic bilateral low back pain without sciatica; Lymphedema; Piriformis syndrome, unspecified laterality; Seasonal allergies; Sensorineural hearing loss (SNHL) of left ear with unrestricted hearing of right ear Start: 07-07-2024 End: 07-07-2024 ambulatory MARLA KNIGHT Not Available Start: 07-02-2024 End: 07-02-2024 Bamboo flowsheet Lazaro Milian DO Work Phone: [facility] Start: 07-02-2024 End: 07-02-2024 Bamboo flowsheet Lazaro Milian DO Work Phone: [facility] Start: 07-02-2024 End: 07-02-2024 Patient encounter procedure Lazaro Milian DO Work Phone: [facility] Comment on above: Complete tear of rig ht rotator cuff, unspecified whether traumatic (Primary Dx) Start: 07-02-2024 End: 07-02-2024 ambulatory LAZARO MILIAN Not Available Start: 06-24-2024 End: 06-24-2024 Bamboo flowsheet Emily Park [employer] Work Phone: [facility] Start: 06-24-2024 End: 06-24-2024 Bamboo flowsheet Emily Park [employer] Work Phone: [facility] Start: 06-24-2024 End: 06-24-2024 Office outpatient visit 25 minutes Emily Park [employer] Work Phone: [facility] Comment on above: Acute frontal sinusi tis, recurrence not specified (Primary Dx); PND (post-nasal drip) Start: 06-24-2024 End: 06-24-2024 ambulatory EMILY PARK Not Available Start: 06-23-2024 End: 06-23-2024 Office outpatient visit 25 minutes Trung Rivas MD Work Phone: [facility], A Department of [facility] Comment on above: Subclinical hypothyr oidism (Primary Dx); Vitamin D deficiency; Age-related osteoporosis without current pathological fracture Start: 06-23-2024 End: 06-23-2024 [facility] Start: 06-09-2024 End: 06-09-2024 Clinisync Result Encounter Generic External Data Provider [facility] External Department Unsolicited Start: 06-09-2024 End: 06-09-2024 Clinisync Result Encounter Generic External Data Provider [facility] External Department Unsolicited Start: 05-28-2024 End: 05-28-2024 ambulatory EMILY PARK Not Available Start: 04-30-2024 End: 04-30-2024 Bamboo flowsheet Emily Park [employer] Work Phone: [facility] Start: 04-30-2024 End: 04-30-2024 Bamboo flowsheet Emily Park [employer] Work Phone: [facility] Start: 04-30-2024 End: 04-30-2024 ambulatory EMILY PARK Not Available Start: 04-30-2024 End: 04-30-2024 Office outpatient visit 25 minutes Emily Park [employer] Work Phone: [facility] Comment on above: Cellulitis, unspecif ied cellulitis site (Primary Dx) Start: 04-16-2024 End: 04-16-2024 Office outpatient visit 25 minutes Emily Park [employer] Work Phone: [facility] Comment on above: Acute non-recurrent sinusitis, unspecified location (Primary Dx); Edema of lower extremity; Bariatric surgery status; Unspecified atrial fibrillation ([facility]/HCC); Morbid (severe) obesity due to excess calories (CMS/HCC); Body mass index (BMI) 40.0-44.9, adult (CMS/HCC) Start: 04-16-2024 End: 04-16-2024 ambulatory EMILY PARK Not Available Start: 04-16-2024 End: 04-16-2024 Bamboo flowsheet Emily Park [employer] Work Phone: [facility] Start: 04-16-2024 End: 04-16-2024 Bamboo flowsheet Emily Park [employer] Work Phone: [facility] Start: 03-19-2024 End: 03-19-2024 Patient encounter procedure Noel Farnsworth II Work Phone: [facility] Work Phone: Start: 03-19-2024 End: 03-19-2024 ambulatory Noel Farnsworth II Work Phone: [facility] Work Phone: Start: 03-18-2024 End: 03-18-2024 Bamboo flowsheet Sherlyn E Rinkes DO Work Phone: [facility] Start: 03-18-2024 End: 03-18-2024 Bamboo flowsheet Sherlyn E Rinkes DO Work Phone: [facility] Start: 03-18-2024 End: 03-18-2024 Office outpatient visit 25 minutes Sherlyn E Rinkes DO Work Phone: [facility] Comment on above: Vaginal atrophy; Encounter for mammogram to establish baseline mammogram Start: 03-18-2024 End: 03-18-2024 ambulatory SHERLYN JORDANKES Not Available Start: 03-12-2024 End: 03-12-2024 Bamboo flowsheet Noel Farnsworth MD Work Phone: [facility] Start: 03-12-2024 End: 03-12-2024 Bamboo flowsheet Noel Farnsworth MD Work Phone: [facility] Start: 03-12-2024 End: 03-12-2024 Office outpatient visit 25 minutes Noel Farnsworth MD Work Phone: [facility] Comment on above: Acute non-recurrent sinusitis, unspecified location (Primary Dx); Acute cystitis without hematuria; Anemia, unspecified type Start: 03-12-2024 End: 03-12-2024 ambulatory NOEL FARNSWORTH Not Available Start: 02-28-2024 End: 02-28-2024 Bamboo flowsheet Noel Farnsworth MD Work Phone: [facility] Start: 02-28-2024 End: 02-28-2024 Bamboo flowsiain Farnsworth MD Work Phone: [facility] Start: 02-28-2024 End: 02-28-2024 Office outpatient visit 25 minutes Noel Farnsworth MD Work Phone: [facility] Comment on above: Acute non-recurrent sinusitis, unspecified location (Primary Dx); Acute cystitis without hematuria; Anemia, unspecified type Start: 02-28-2024 End: 02-28-2024 ambulatory NOEL FARNSWORTH Not Available Start: 01-20-2024 End: 01-20-2024 Clinisync Result Encounter Generic External Data Provider [facility] External Department Unsolicited Start: 01-20-2024 End: 01-20-2024 Clinisync Result Encounter Generic External Data Provider [facility] External Department Unsolicited Start: 01-03-2024 End: 01-03-2024 Bamboo flowsheet Marla WILSON Work Phone: [facility] Start: 01-03-2024 End: 01-03-2024 Bamboo flowsheet Marla WILSON Work Phone: [facility] Start: 01-03-2024 End: 01-03-2024 Office outpatient visit 25 minutes Marla WILSON Work Phone: [facility] Comment on above: Acute URI (Primary D x); Laryngitis; Longstanding persistent atrial fibrillation (CMS/HCC); Right ear impacted cerumen Start: 01-03-2024 End: 01-03-2024 ambulatory MARLA Batista EUGENE Not Available Start: 01-02-2024 End: 01-02-2024 Patient encounter procedure Lazaro Milian DO Work Phone: [facility] Comment on above: Complete tear of rig ht rotator cuff, unspecified whether traumatic (Primary Dx) Start: 01-02-2024 End: 01-02-2024 ambulatory LAZARO MILIAN Not Available Start: 01-02-2024 End: 01-02-2024 ambulatory LAZARO MILIAN Not Available Start: 11-28-2023 End: 11-28-2023 ambulatory MILY [facility] Ambulatory Start: 11-28-2023 End: 11-28-2023 Office outpatient visit 25 minutes Mily Hackett MD Work Phone: [facility] Comment on above: Permanent atrial fib rillation with RVR (Multi) (Primary Dx); Anticoagulated; Essential hypertension; Obstructive sleep apnea syndrome; Iron deficiency anemia, unspecified iron deficiency anemia type; Former smoker; BMI 39.0-39.9,adult; Cellulitis of right lower extremity; High risk medication use Start: 11-01-2023 End: 11-01-2023 Clinisync Result Encounter Denisha Gracia NP Work Phone: [facility] External Department Unsolicited Start: 11-01-2023 End: 11-01-2023 Clinisync Result Encounter Denisha Gracia [employer] Work Phone: [facility] External Department Unsolicited Start: 10-29-2023 End: 10-29-2023 Bamboo flowsheet Denisha Gracia [employer] Work Phone: [facility] Start: 10-29-2023 End: 10-29-2023 Bamboo flowsheet Denisha Gracia [employer] Work Phone: [facility] Start: 10-29-2023 End: 10-29-2023 Assay of hemosiderin, quant Denisha Gracia [employer] Work Phone: [facility] Start: 10-29-2023 End: 10-29-2023 Patient encounter procedure Denisha Gracia [employer] Work Phone: [facility] Comment on above: Medicare annual well ness visit, subsequent (Primary Dx); Bilateral carpal tunnel syndrome; Lumbar radiculopathy; Obstructive sleep apnea syndrome; Right cervical radiculopathy; Atrial fibrillation, unspecified type (CMS/HCC); Chronic venous insufficiency; Primary hypertension (CMS/HCC); Mitral valve prolapse; Gastroesophageal reflux disease without esophagitis; Intestinal disaccharidase deficiencies and disaccharide malabsorption; Edema of lower extremity; Primary osteoarthritis of right knee; Senile osteoporosis (CMS/HCC); BMI 39.0-39.9,adult; Hyperparathyroidism (CMS/HCC); Morbid obesity ([facility]/HCC); Non-toxic multinodular goiter ([facility]/HCC); Thyroid disease ([facility]/HCC); Vitamin B-complex deficiency; Vitamin D deficiency; Anemia, unspecified type; Thrombocytopenia ([facility]/HCC); Fibrocystic breast changes, unspecified laterality; Hypercalcemia; Hypokalemia; Chronic bilateral low back pain without sciatica; Lymphedema; Seasonal allergies; Sensorineural hearing loss (SNHL) of left ear with unrestricted hearing of right ear; Body mass index (BMI) 40.0-44.9, adult (CMS/HCC); Other thrombophilia ([facility]/HCC); Secondary hyperparathyroidism of renal origin ([facility]/HCC); Primary hyperparathyroidism ([facility]/HCC); Secondary hyperparathyroidism, not elsewhere classified ([facility]/HCC); Routine general medical examination at health care facility; Hypomagnesemia; Disorder of left eustachian tube Start: 10-29-2023 End: 10-29-2023 ambulatory DENISHA GRACIA Not Available Start: 09-23-2023 End: 09-23-2023 ambulatory MARLA KNIGHT Not Available Start: 09-05-2023 End: 09-05-2023 ambulatory EMILY PARK Not Available Start: 07-30-2023 End: 07-30-2023 ambulatory MARLA KNIGHT Not Available Start: 07-25-2023 End: 07-25-2023 ambulatory LAZARO MILIAN Not Available Start: 06-18-2023 End: 06-18-2023 ambulatory TRUNG RIVAS [facility] Start: 05-13-2023 End: 05-13-2023 ambulatory MILY HACKETT [facility]ulatory Start: 05-13-2023 End: 05-13-2023 Office outpatient visit 25 minutes Mily Hackett MD Work Phone: [facility] Comment on above: Permanent atrial fib [...] MD Work Phone: [facility] Start: 03-25-2023 End: 03-25-2023 ambulatory II Noel Farnsworth Work Phone: [facility] Work Phone: Start: 03-25-2023 End: 03-25-2023 Patient encounter procedure II Noel Farnsworth Work Phone: [facility] Work Phone: Start: 03-07-2023 End: 03-07-2023 Patient encounter procedure II Noel Farnsworth Work Phone: [facility] Work Phone: Start: 02-20-2023 End: 02-20-2023 ambulatory II Noel Farnsworth Work Phone: [facility] Work Phone: Start: 02-20-2023 End: 02-20-2023 Patient encounter procedure II Noel Farnsworth Work Phone: [facility] Work Phone: Start: 11-20-2022 Telephone encounter Noel joe Work Phone: [facility] [address] DO Work Phone: Start: 10-23-2022 Office outpatient vi sit 25 minutes Noel Farnsworth Work Phone: [facility] [address] DO Work Phone: Start: 10-23-[address] Mily Hackett Facility: Start: 08-02-2022 End: 08-03-[address] NOEL FARNSWORTH Facility:[facility]1 Start: 07-09-2022 End: 08-08-2022 ambulatory KOCH H FAWWAD Facility:[facility]1 Start: 06-11-2022 End: 07-06-2022 ambulatory KOCH H FAWWAD Facility:[facility]1 Start: 06-05-2022 End: 06-06-2022 ambulatory TRUNG HOOD Facility:[facility]1 Start: 05-09-[address] Mily Hackett Facility: Start: 05-09-2022 End: 06-08-2022 ambulatory KOCH [...] End: 01-17-2022 ambulatory SALMA Farnsworth Work Phone: [facility] Work Phone: Start: 01-17-2022 End: 01-17-2022 Patient encounter procedure II Noel Farnsworth Work Phone: [facility] Start: 01-09-2022 End: 02-07-2022 ambulatory SHAIKH Connie MURILLO Facility:[facility]1 Start: 12-25-2021 End: 12-25-2021 ambulatory II Noel Farnsworth Work Phone: [facility] Work Phone: Start: 12-25-2021 End: 12-25-2021 Discharged Recurring II Noel Farnsworth Work Phone: [facility] Start: 12-25-2021 Registered Recurring II Noel Farnsworth Work Phone: [facility] Start: 12-10-2021 End: 01-08-2022 ambulatory SHAIKH Connie MURILLO Facility:[facility]1 Start: 11-28-2021 Rx Renewal Mily Hackett MD Work Phone: [facility] [address] DO Work Phone: Start: 11-19-2021 Encounter for genera l adult medical examination without abnormal findings DR MILY HACKETT [facility] Start: 11-14-2021 End: 11-15-[address] NOEL FARNSWORTH Facility:[facility]1 Start: 11-14-2021 End: 11-15-2021 Encounter for general adult medical examination without abnormal findings DR NOEL FARNSWORTH Facility:[facility]1 Start: 11-10-2021 End: 11-10-[address] NOEL FARNSWORTH Facility:[facility]1 Start: 11-09-2021 End: 11-10-[address] NOEL FARNSWORTH Facility:[facility]1 Start: 11-09-2021 End: 12-09-2021 ambulatory SHAIKH Connie MURILLO Facility:[facility]1 Start: 11-06-2021 Telephone encounter Mily dawkins MD Work Phone: [facility] [address] DO Work Phone: Start: 11-06-2021 End: 11-07-[address] NOEL FARNSWORTH Facility:[facility]1 Start: 11-01-2021 Office outpatient vi sit 25 minutes [facility] Work [facility]: Start: 10-09-2021 End: 11-08-2021 ambulatory SHAIKH Connie MURILLO Facility:[facility]1 Start: 09-15-2021 End: 09-16-[address] NOEL FARNSWORTH Facility:[facility]1 Start: 09-08-2021 End: 10-06-2021 ambulatory SHAIKH Connie MURILLO Facility:[facility]1 Start: 07-26-2021 Rx Renewal [facility] Work Phone: Start: 04-26-2021 Office outpatient vi sit 25 minutes [facility] MD [facility] Work Phone: Start: 04-26-2021 Patient encounter procedure Sutton steffen Hackett MD [facility] Work Phone: Start: 12-09-2017 End: 12-10-2017 Patient encounter procedure DEFAULT PHYSICIAN Facility:[facility] Start: 09-16-2017 End: 09-17-2017 Patient encounter procedure STEPHANIE CAVAZOS Facility:[facility] Procedures Date Procedure Procedure Detail Performing Clinician Start: 07-02-2024 Arthrocentesis aspir &/inj major jt/bursa w/us Lazaro Milian DO Work Phone: Start: 06-09-2024 ALL THYROID STIM HORMONE Generic External Data Provider Start: 06-09-2024 [facility] CMP (CMP) (FOR [facility] USE) Generic External Data Provider Start: 03-19-2024 End: 03-19-2024 Screening mammography of bilateral breasts Noel Farnsworth II Work Phone: Start: 03-12-2024 Urnls dip stick/tabl et rgnt non-auto w/o micrscp Noel Farnsworth MD Work Phone: Start: 01-20-2024 ALL CBC WITH AUTO DIFF Generic External Data Provider Start: 01-20-2024 ALL FOLIC ACID Generic External Data Provider Start: 01-20-2024 ALL MAGNESIUM Generic E xternal Data Provider Start: 01-20-2024 ALL PHOSPHOROUS Generic External Data Provider Start: 01-20-2024 [facility] CMP (CMP) ([facility]) Generic External Data Provider Start: 01-20-2024 [facility] FERRITIN Generic Ex ternal Data Provider Start: 01-20-2024 Cyanocobalamin vitamin b-12 Generic External Data Provider Start: 01-20-2024 [employer] TI[employer] Gen mago External Data Provider Start: 01-20-2024 METRO VITAMIN B1, WH OLE BLOOD Generic External Data Provider Start: 01-20-2024 [facility] VITAMIN D 25 [place] Gen mago External Data Provider Start: 01-02-2024 Arthrocentesis aspir &/inj major jt/bursa w/us Lazaro Milian DO Work Phone: Start: 01-02-2024 Radex shoulder compl ete minimum 2 views Lazaro Milian DO Work Phone: Start: 11-01-2023 ALL CBC WITH AUTO DIFF Denisha Gracia NP Work Phone: Start: 05-13-2023 CBC panel - Blood by Automated count MILY HACKETT Start: 05-13-2023 Basic metabolic 2000 panel - Serum or Plasma MILY HACKETT Start: 03-25-2023 Dual energy X-ray absorptiometry II Noel Farnsworth Work Phone: Start: 02-20-2023 End: 02-20-2023 Screening mammography of bilateral breasts II Noel Farnsworth Work Phone: Start: 01-17-2022 End: 01-17-2022 Screening mammography of bilateral breasts II Noel Farnsworth Work Phone: Start: 03-30-2020 Colonoscopy Noel read MD Work Phone: Start: 07-04-2015 History of thyroidectomy H/O thyroid ectomy Noel Farnsworth MD Work Phone: Appendectomy Mily Hackett MD Work Phone: Cholecystectomy Mily faust MD Work Phone: Decompression of med david nerve Mily Hackett MD Work Phone: History of thyroidectomy H/O thyroidectom y Marla WILSON Work Phone: Ligation of varicose vein Sutton steffen Hackett MD Work Phone: Operation on skin Noel Snow erry Work Phone: Operation on stomach Mily Hackett MD Work Phone: Release of trigger finger Sutton steffen Hackett MD Work Phone: Thyroidectomy Mily Hackett MD Work Phone: Total colonoscopy Mily dawkins MD Work Phone: Plan of Treatment Date Care Activity Detail Author Start: 03-30-2030 Screening for malignant neoplasm of colon [facility] Start: 07-07-2025 Medicare Annual Wellness (AWV) Medicare Annual Wellness (AWV) [facility] Start: 06-23-2025 Adult BMI Screening Adult BMI Screening [facility] Start: 06-23-2025 End: 06-23-2026 DXA Skeletal system Views for bone density Dexa scan central skeletal Imaging Routine Age-related osteoporosis without current pathological fracture Expected: 06/23/2025, Expires: 06/23/2026 [facility] Comment on above: Expected: 06/23/2025, Expires: Start: 06-23-2025 Tobacco Screening Tobacco Screening [facility] Start: 06-22-2025 End: 06-22-2025 Patient encounter procedure 06/22/2025 9:30 AM EDT Office Visit [facility] Adult Endocrinology, A Department of [facility] [address] [place] [address] Trung Richardson MD [address] [place] [address] [facility] Adult Endocrinology, A Department of [facility] Start: 06-09-2025 End: 06-23-2025 Comprehensive metabolic 2000 panel - Serum or Plasma Comprehensive metabolic panel Lab Routine Subclinical hypothyroidism Expected: 06/09/2025, Expires: 06/23/2025 [facility] Comment on above: Expected: 06/09/2025, Expires: Start: 06-09-2025 End: 06-23-2025 Thyroid profile includes TSH FT4 Thyroid profile includes TSH FT4 Lab Routine Subclinical hypothyroidism Expected: 06/09/2025, Expires: 06/23/2025 [facility] Comment on above: Expected: 06/09/2025, Expires: Start: 06-09-2025 End: 06-23-2025 Vitamin D 25 hydroxy Vitamin D 25 hydroxy Lab Routine Vitamin D deficiency Expected: 06/09/2025, Expires: 06/23/2025 [employer] Work Phone: Comment on above: Expected: 06/09/2025, Expires: Start: 04-01-2025 End: 04-01-2025 Patient encounter procedure 04/01/2025 10:00 AM EST Office Visit [facility] [address] [place] [phone] Sherlyn Rucker, DO [address] [place] [address] [facility] Start: 03-28-2025 Screening for osteoporosis Bone Density Scan [facility] Start: 03-19-2025 Screening for malignant neoplasm of breast Mammogram [facility] Start: 12-31-2024 End: 12-31-2024 Patient encounter procedure 12/31/2024 9:00 AM EDT Office Visit [facility] [address] [facility] [place] [phone] Lazaro Milian, [address] [place] [address] [facility] Start: 11-09-2024 Influenza vaccination [facility] Start: 10-28-2024 Medicare Annual Wellness (AWV) Medicare Annual Wellness (AWV) [facility] Start: 08-27-2024 End: 08-27-2024 Patient encounter procedure 08/27/2024 9:00 AM EDT Office Visit [facility] [address] [facility] [address] [place] [phone] Mily Hackett MD [address] [place] [address] [facility] Start: 07-07-2024 End: 07-07-2024 Patient encounter procedure 07/07/2024 9:30 AM EDT Office Visit [facility] [address] [place] [address] Marla Knight PA [address] [place] [address] Arrived [facility] Comment on above: Arrived Start: 07-02-2024 End: 07-02-2024 Patient encounter procedure [facility] Comment on above: Arrived Start: 06-24-2024 End: 06-24-2024 Patient encounter procedure 06/24/2024 1:30 PM EDT Office Visit [facility] [address] [place] [address] Emily Park, [employer] [address] [place] [address] Arrived [facility] Comment on above: Arrived Start: 04-16-2024 End: 04-16-2024 Patient encounter procedure 04/16/2024 3:30 PM EST Office Visit [facility] [address] [place] [address] Emily Park, [employer] [address] [place] [address] Arrived [facility] Comment on above: Arrived Start: 03-18-2024 End: 03-18-2024 Patient encounter procedure [facility] Comment on above: Vaginal atrophy; Encounter for mammogram to establish baseline mammogram Start: 03-12-2024 End: 03-12-2024 Patient encounter procedure 03/12/2024 9:00 AM EST Office Visit [facility] [address] [place] [address] Noel Farnsworth MD [address] [place] [address] Arrived [facility] Comment on above: Arrived Start: 02-28-2024 End: 02-27-2025 Cobalamin (Vitamin B12) [Mass/volume] in Serum or Plasma Vitamin B12 Lab Routine Anemia, unspecified type Expected: 02/28/2024 (Approximate), Expires: 02/27/2025 [facility] Work Phone: Comment on above: Expected: 02/28/2024 (Approximate), Expi res: 02/27/2025 Start: 02-28-2024 End: 02-27-2025 Folate [Mass/volume] in Serum or Plasma Folate Lab Routine Anemia, unspecified type Expected: 02/28/2024 (Approximate), Expires: 02/27/2025 [facility] Comment on above: Expected: 02/28/2024 (Approximate), Expi res: 02/27/2025 Start: 02-28-2024 End: 02-27-2025 Reticulocytes panel - Blood Reticulocytes Lab Routine Anemia, unspecified type Expected: 02/28/2024 (Approximate), Expires: 02/27/2025 [facility] Comment on above: Expected: 02/28/2024 (Approximate), Expi res: 02/27/2025 Start: 02-28-2024 End: 02-28-2024 Patient encounter procedure 02/28/2024 9:00 AM EST Office Visit [facility] [address] [place] [address] Noel Farnsworth MD [address] [place] [address] Arrived [facility] Comment on above: Arrived Start: 02-21-2024 Screening for malignant neoplasm of breast Mammogram [facility] Start: 02-16-2024 Medicare Annual Wellness (AWV) Medicare Annual Wellness (AWV) [facility] Start: 01-03-2024 End: 01-02-2025 COMMON RESPIRATORY BACTERIAL/VIRAL INFECTION (HTRX) COMMON RESPIRATORY BACTERIAL/VIRAL INFECTION (HTRX) Lab Routine Acute URI Laryngitis Expected: 01/03/2024 (Approximate), Expires: 01/02/2025 [facility] Work Phone: Comment on above: Expected: 01/03/2024 (Approximate), Expi res: 01/02/2025 Start: 01-03-2024 End: 01-03-2024 Patient encounter procedure [facility] Comment on above: Arrived Start: 01-02-2024 End: 01-02-2024 Patient encounter procedure 01/02/2024 9:00 AM EDT Office Visit [facility] [address] [place] [address] Lazaro Milian DO [address] [place] [address] [facility] Start: 11-28-2023 End: 11-28-2023 Patient encounter procedure 11/28/2023 9:30 AM EDT Office Visit [facility] [address] [facility] [address] [place] [address] Mily Hackett MD [address] [facility] [address] [place] [address] [facility] Start: 11-10-2023 COVID-19 Vaccine () COVID-19 Vaccine () [facility] Start: 11-10-2023 COVID-19 Vaccine () COVID-19 Vaccine () [facility] [employer] Start: 11-10-2023 Influenza vaccination Influenza Vaccine (#1) [facility] Start: 10-29-2023 End: 10-28-2024 25-hydroxyvitamin D3 [Mass/volume] in Serum or Plasma Vitamin D 25 hydroxy Lab Routine Vitamin D deficiency Expected: 10/29/2023 (Approximate), Expires: 10/28/[address] [facility] Comment on above: Expected: 10/29/2023 (Approximate), Expi res: 10/28/2024 Start: 10-29-2023 End: 10-28-2024 CBC panel - Blood by Automated count CBC Lab Routine Atrial fibrillation, unspecified type ([facility]) Chronic venous insufficiency Primary hypertension ([facility]) Gastroesophageal reflux disease without esophagitis Seasonal allergies Medicare annual wellness visit, subsequent Expected: 10/29/2023 (Approximate), Expires: 10/28/[address] [facility] Comment on above: Expected: 10/29/2023 (Approximate), Expi res: 10/28/2024 Start: 10-29-2023 End: 10-28-2024 Comprehensive metabolic 2000 panel - Serum or Plasma Comprehensive metabolic panel Lab Routine Primary hypertension ([facility]) Hypercalcemia Hypokalemia Primary hyperparathyroidism ([facility]) Medicare annual wellness visit, subsequent Expected: 10/29/2023 (Approximate), Expires: 10/28/[address] [facility] Comment on above: Expected: 10/29/2023 (Approximate), Expi res: 10/28/2024 Start: 10-29-2023 End: 10-28-2024 Magnesium [Mass/volume] in Serum or Plasma Magnesium Lab Routine Hypomagnesemia Expected: 10/29/2023 (Approximate), Expires: 10/28/[address] [facility] Comment on above: Expected: 10/29/2023 (Approximate), Expi res: 10/28/2024 Start: 10-29-2023 End: 10-28-2024 Thyrotropin [Units/volume] in Serum or Plasma TSH Lab Routine Non-toxic multinodular goiter ([facility]) Medicare annual wellness visit, subsequent Expected: 10/29/2023 (Approximate), Expires: 10/28/[address] [facility] Work Phone: Comment on above: Expected: 10/29/2023 (Approximate), Expi res: 10/28/2024 Start: 10-29-2023 End: 10-29-2023 Patient encounter procedure [facility] Comment on above: Arrived Start: 10-13-2023 End: 05-12-2024 Basic metabolic 2000 panel - Serum or Plasma Basic Metabolic Panel Lab Routine Permanent atrial fibrillation with RVR (CMS/HCC) Essential hypertension Hypokalemia Expected: 10/13/2023, Expires: 05/12/2024 [facility] Service Area Work Phone: Comment on above: Expected: 10/13/2023, Expires: 5 Start: 10-13-2023 End: 05-12-2024 CBC panel - Blood by Automated count CBC Lab Routine Permanent atrial fibrillation with RVR (CMS/HCC) Essential hypertension Hypokalemia Expected: 10/13/2023, Expires: 05/12/2024 [facility] Work Phone: Comment on above: Expected: 10/13/2023, Expires: 5 Start: 07-25-2023 End: 07-25-2023 Patient encounter procedure 07/25/2023 9:30 AM EDT Office Visit [facility] [address] [place] [address] Lazaro Milian DO [address] [place], [place] [id number] [facility] Start: 05-01-2023 End: 05-01-2023 Patient encounter procedure 05/01/2023 9:30 AM EST Office Visit [facility] [address] [place] [address] Noel Farnsworth MD [address] [place] [address] [facility] Start: 04-24-2023 FUV, Provider: Mily Hackett, Status: Pen, Time: 9:30 AM FUV, Provider: Mily Hackett, Status: Pen, Time: 9:30 AM [place] [address] DO Work Phone: Start: 04-17-2023 End: 04-17-2023 Patient encounter procedure 04/17/2023 2:15 PM EST Office Visit [facility] [address] [facility] [address] [place] [address] Noel Farnsworth MD 112 [facility] [address] [place] [address] Arrived [facility] Comment on above: Arrived Start: 01-17-2023 Screening for malignant neoplasm of breast Mammogram [facility] Start: 11-09-2022 COVID-19 Vaccine () COVID-19 Vaccine () [facility] Start: 11-09-2022 Influenza vaccination Influenza Vaccine (#1) [facility] Start: 05-09-2022 FUV, Provider: Mily Hackett, Status: Pen, Time: 9:20 AM FUV, Provider: Mily Hackett, Status: Pen, Time: [facility] Work Phone: Start: 11-01-2021 FUV, Provider: Mily Hackett, Status: Pen, Time: 9:30 AM FUV, Provider: Mily Hackett, Status: Pen, Time: 9:[address] [facility] Work Phone: Start: 09-22-2019 Fall Risk Screening Fall Risk Screening [facility] Start: 09-22-2019 Pneumococcal Vaccine: 65+ Years (1 - PCV) Pneumococcal Vaccine: 65+ Years (1 - PCV) [facility] Start: 2014 RSV patients and/or patients aged 60+ years (1 - 1-dose 60+ series) RSV patients and/or patients aged 60+ years (1 - 1-dose 60+ series) [facility] Start: 2004 Administration of varicella zoster vaccine Zoster (Shingles) Vaccine (1 of 2) [facility] Start: 2004 Zoster Vaccines (1 of 2) Zoster Vaccines (1 of 2) [facility] Start: 1976 DTaP/Tdap/Td Vaccines (1 - Tdap) DTaP/Tdap/Td Vaccines (1 - Tdap) [facility] Start: 1973 DTaP,Tdap and Td Vaccines (1 - Tdap) DTaP,Tdap and Td Vaccines (1 - Tdap) [facility] Start: 1973 Pneumococcal Vaccine: 65+ Years (1 of 2 - PCV) Pneumococcal Vaccine: 65+ Years (1 of 2 - PCV) [facility] Start: 1972 Diabetes mellitus screening Diabetes Screening [facility] Start: 1972 Hepatitis C screening Hepatitis C Screening [facility] Start: 1966 Depression Screening Depression Screening [facility] Start: 1960 Pneumococcal Vaccine: 65+ Years (1 - PCV) Pneumococcal Vaccine: 65+ Years (1 - PCV) [facility] Start: 1960 Pneumococcal Vaccine: 65+ Years (1 of 2 - PCV) Pneumococcal Vaccine: 65+ Years (1 of 2 - PCV) [facility] Start: 1954 Lipid panel Lipid Panel [facility] Start: 1954 Medicare Annual Wellness Visit Medicare Annual Wellness Visit (AWV) [facility] Start: 1954 Screening for malignant neoplasm of colon [facility] CBC W Auto Different ial panel - Blood CBC and differential Lab Routine Anemia, unspecified type Ordered: 02/28/[address] [facility] Comment on above: Ordered: 02/28/2024 DBT Breast - bilater al screening Bilateral screening mammogram with tomosynthesis Imaging Routine Encounter for mammogram to establish baseline mammogram Ordered: 03/18/[address] [facility] Work Phone: Comment on above: Ordered: 03/18/2024 HEPATITIS C AB W/RFL RNS, PCR W/RFL GENOTYPE,LIPA HEPATITIS C AB W/RFL RNS, PCR W/RFL GENOTYPE,LIPA Lab Routine Medicare annual wellness visit, subsequent Other problems related to lifestyle Ordered: 07/07/[address] [facility] Work Phone: Comment on above: Ordered: 07/07/2024 Lipid 1996 panel - Serum or Plasma Lipid panel Lab Routine Medicare annual wellness visit, subsequent Elevated AST (SGOT) Primary hypertension (CMS/HCC) Ordered: 07/07/[address] [facility] Comment on above: Ordered: 07/07/2024 Immunizations Immunization Date Immunization Notes Care Provider Jaqui guadalupe 02-14-2021 Pfizer-BioNTech COVID-19 Vacc 30 MCG/0.3ML Intramuscular Suspension Mily Hackett MD Work Phone: [facility] 06-30-2020 Pfizer-BioNTech COVID-19 Vacc 30 MCG/0.3ML Intramuscular Suspension Mily Hackett MD Work Phone: [facility] 250 DO Work Phone: 06-07-2020 Pfizer-BioNTech COVID-19 Vacc 30 MCG/0.3ML Intramuscular Suspension Mily Hackett MD Work Phone: [facility] 01-07-2012 influenza, seasonal, injectable, preservative free Noel Farnsworth MD Work Phone: [facility] 01-07-2012 influenza virus vaccine, unspecified formulation Noel Farnsworth MD Work Phone: [facility] Payers Date Payer Category Payer Self-pay [id number] 2022 Medicare [id number] 2022 Medicare (Managed Care) [facility] MEDICARE [id number] 2020 Unknown 1959 Medicare [id number] 1959 Medicare [id number] 1959 Private Health Insurance [id number] 1959 Unknown [id number] 1959 Unknown [id number] 1954 Unknown [id number] 2.16.840.1.694131.3.579.2. 647 1954 Unknown [id number] 2.16.840.1.491713.3.579.2. 647 1954 Unknown [id number] 2.16.840.1.378657.3.579.2. 59 1954 Unknown [id number] 2.16.840.1.189959.3.579.2. 593 1954 Unknown [id number] 2.16.840.1.822254.3.579.2. 59 1954 Unknown [id number] 2.16.840.1.232087.3.579.2. 593 1954 Unknown [id number] 2.16.840.1.598105.3.579.2. 593 1954 Unknown [id number] 2.16.840.1.846781.3.579.2. 593 1954 Unknown [id number] 2.16.840.1.578755.3.579.2. 593 1954 Unknown [id number] 2.16.840.1.749603.3.579.2. 593 1954 Unknown [id number] 2.16.840.1.462363.3.579.2. 593 1954 Unknown [id number] 2.16.840.1.529061.3.579.2. 593 1954 Unknown [id number] 2.16.840.1.692186.3.579.2. 593 1954 Unknown [id number] 2.16.840.1.042167.3.579.2. 593 1954 Unknown [id number] 2.16.840.1.426067.3.579.2. 593 1954 Unknown [id number] 2.16.840.1.958281.3.579.2. 593 1954 Unknown [id number] 2.16.840.1.101610.3.579.2. 593 1954 Unknown [id number] 2.16.840.1.769461.3.579.2. 593 1954 Unknown [id number] 2.16.840.1.350933.3.579.2. 593 1954 Unknown [id number] 2.16.840.1.887886.3.579.2. 593 1954 Unknown [id number] 2.16.840.1.624953.3.579.2. 593 1954 Unknown [id number] 2.16.840.1.686633.3.579.2. 593 1954 Unknown [id number] 2.16.840.1.377866.3.579.2. 593 1954 Unknown [id number] 2.16.840.1.554257.3.579.2. 356 1954 Unknown [id number] 2.16.840.1.614092.3.579.2. 356 1954 Unknown [id number] 2.16.840.1.684908.3.579.2. 1286 1954 Unknown [id number] 2.16.840.1.454108.3.579.2. 1244 1954 Unknown [id number] 2.16.840.1.716754.3.579.2. 1244 1954 Unknown [id number] 2.16.840.1.829974.3.579.2. 1286 1954 Unknown [id number] 2.16.840.1.559150.3.579.2. 1258 1954 Unknown [id number] 2.16.840.1.878143.3.579.2. 1258 1954 Unknown [id number] 2.16.840.1.707958.3.579.2. 1258 1954 Unknown [id number] 2.16.840.1.980498.3.579.2. 1258 1954 Unknown [id number] 2.16.840.1.017286.3.579.2. 1258 1954 Unknown [id number] 2.16.840.1.698198.3.579.2. 1258 1954 Unknown [id number] 2.16.840.1.758116.3.579.2. 1258 1954 Unknown [id number] 2.16.840.1.402188.3.579.2. 1258 1954 Unknown [id number] 2.16.840.1.495471.3.579.2. 1258 1954 Unknown [id number] 2.16.840.1.206510.3.579.2. 1258 1954 Unknown [id number] 2.16.840.1.162510.3.579.2. 1258 1954 Unknown [id number] 2.16.840.1.860711.3.579.2. 1258 1954 Unknown [id number] 2.16.840.1.441780.3.579.2. 1258 1954 Unknown [id number] 2.16.840.1.343185.3.579.2. 1258 1954 Unknown [id number] 2.16.840.1.875009.3.579.2. 1259 1954 Unknown [id number] 2.16.840.1.913478.3.579.2. 1259 1954 Unknown [id number] 2.16.840.1.946595.3.579.2. 1259 Blue Cross Blue Shield [id number] Medicare [id number] Unknown [facility] [id number] Unknown [id number] 2.16.840.1.096421.3.579.2. 531 Unknown [id number] 2.16.840.1.792000.3.579.2. 531 Social History Date Type Detail Facility Start: 04-17-2023 End: 07-07-2024 Social alcohol use Social alcohol use [facility] Start: 1955 Sex Assigned At Female F [facility] Start: 10-18-2022 Tobacco smoking stat [facility] Never smoked tobacco [facility] Start: 06-13-2022 End: 10-18-2022 Tobacco use and exposure Smokeless tobacco non-user [facility] Start: 04-17-2023 End: 06-24-2024 Alcohol intake Lifetime non-drinker (finding) [facility] Start: 04-17-2023 End: 07-07-2024 Tobacco use panel [facility] Start: 08-17-2022 Alcohol Comment caffeine: none [facility] Start: 1955 Sex Assigned At Not on file [facility] Start: 06-13-2022 End: 05-13-2023 Tobacco smoking status NHIS Ex-smoker [facility] Work Phone: End: 03-11-1981 History of tobacco use Current smoker [facility] Work Phone: End: 03-11-1981 History of tobacco use Cigarette Smoker [facility] Work Phone: Start: 05-13-2023 End: 06-23-2024 Alcohol intake Current drinker of alcohol (finding) [facility] Work Phone: Start: 03-28-2023 Alcohol Comment social [facility] Work Phone: Start: 05-03-2023 End: 11-28-2023 Exposure to SARS-CoV-2 (event) Not sure [facility] Tobacco smoking stat us NHIS Unknown if ever smoked [facility] Work Phone: Start: 10-14-2014 End: 03-20-2024 Sex Female (finding) [facility] Unknown [facility] Start: 06-13-2022 Tobacco Comment 41 years ago [facility] Start: 06-13-2022 Alcohol Comment maybe 2 a month [facility] Functional Status Date Assessment Result Facility 07-07-2024 Patient Health Quest ionnaire 2 item (PHQ-2) [Reported] [facility] 06-24-2024 Patient Health Quest ionnaire 2 item (PHQ-2) [Reported] [facility] Clinical Notes 09-15-2021 to 07-07-2024 KATIE Parker - 07/07/2024 9:30 AM Zack Walker MA - 07/02/2024 9:30 AM Aayush Milian DO - 07/02/2024 9:30 AM Dc Park NP - 06/24/2024 1:30 PM EDTPatient InstructionsAttachments Note Date & Type Note Facility 07-07-2024 History of Present illness Narrative Images from the original note were not included. HPI Back Pain Additional comments: Cervical pain, she was making easter bread so was not sure if her rolling the bread caused the pain, The pain has improved but still is having pain in bilateral sides of neck and does cause her to have some headaches. She has been using ice, heat, massage, tylenol. She is ?ing if maybe a few sessions of PT would help. Sinusitis Additional comments: Sinus pressure - she is on Augmentin and has been on it for 12 days, she is not sure if maybe her neck could still be affecting her sinsues. Last edited by Cristela Lawson LPN on 07/07/2024 9:38 AM. Subjective Patient ID: Marla Figueredo is a 68 y.o. female who presents for Medicare Wellness. Back Pain Associated symptoms include headaches. Pertinent negatives include no abdominal pain, chest pain, dysuria, fever or numbness. Sinusitis Associated symptoms include headaches, neck pain and sinus pressure. Pertinent negatives include no chills, congestion, coughing, ear pain, shortness of breath or sore throat. Medicare Wellness Over the past 2 weeks, how often have you been bothered by any of the following problems? Little interest or pleasure in doing things: Not at all Feeling down, depressed, or hopeless: Not at all Patient Health Questionnaire-2 Score: 0 Over the past 2 weeks, how often have you been bothered by any of the following problems? Trouble falling or staying asleep, or sleeping too much: Not at all Feeling tired or having little energy: Not at all Poor appetite or overeating: Not at all Feeling bad about yourself - or that you are a failure or have let yourself or your family down: Not at all Trouble concentrating on things, such as reading the newspaper or watching television: Not at all Moving or speaking so slowly that other people could have noticed? Or the opposite - being so fidgety or restless that you have been moving around a lot more than usual.: Not at all Thoughts that you would be better off or hurting yourself in some way: Not at all Patient Health Questionnaire-9 Score: 0 [place] Fall Risk History of Falling, Immediate or Within 3 Months: No Health Risk Assessment Form Do you need help eating, bathing, using the toilet, dressing, or getting around your home?: No Can you prepare your own meals?: Yes Can you do your own housework without help?: Yes Can you shop for groceries or clothes without help?: Yes Do you exercise for about 20 minutes 3 or more days a week?: No How confident are you that you can control and manage most of your health problems?: Very confident Can you mange your money, credit cards and accounts, pay bills and taxes?: Yes Vision Screening: Yes, no gross abnormalities Hearing Screening: Yes, no gross abnormalities Cognitive Screening Self Assessment: No overt cognitive deficiency is apparent by direct observation Three Word Registration: Village, Kitchen, Baby Clock Drawing: Normal Clock - 2 Three Word Recall: All 3 words correct - 3 Total Score (0-5 Points): 5 Pain Assessment Pain Score: 0 - No pain Advance Care Planning Do you have a living will?: No Do you have a medical power of litigation attorney?: No Current Outpatient Medications on File Prior to Visit Medication Sig Dispense Refill amoxicillin-clavulanate (Augmentin) 875-125 MG tablet Take 1 tablet (875 mg) by mouth in the morning and 1 tablet (875 mg) before bedtime. Do all this for 14 days. 28 tablet 0 Ascorbic Acid (vitamin C) 1000 MG tablet aspirin 81 MG EC tablet Take 1 tablet by mouth Daily calcium carbonate 1500 (600 Ca) MG tablet Take 600 mg by mouth in the morning. cholecalciferol (Vitamin D-3) 1.25 MG (55597 UT) capsule Take one capsule daily 100 capsule 3 Copper Gluconate 2 MG tablet Take 1 tablet by mouth in the morning. famotidine (Pepcid) 20 MG tablet ferrous sulfate 325 (65 Fe) MG tablet Take 1 tablet (325 mg) by mouth in the morning and 1 tablet (325 mg) before bedtime. 60 tablet 11 fluticasone (Flonase) 50 MCG/ACT nasal spray Administer 1 spray into each nostril in the morning. Shake gently. Before first use, prime pump. After use, clean tip and replace cap.. 16 g 2 MAGNESIUM PO Take 250 mg by mouth in the morning. metoprolol tartrate (Lopressor) 25 MG tablet Take 1 tablet (25 mg) by mouth every 12 (twelve) hours 200 tablet 3 Caldwell-3 Fatty Acids (Fish Oil) 1200 MG capsule delayed-release pantoprazole (ProtoNix) 40 MG EC tablet TAKE 1 TABLET BY MOUTH DAILY 100 tablet 3 potassium chloride CR (Klor-Con M20) 20 MEQ ER tablet spironolactone (Aldactone) 25 MG tablet Take 25 mg by mouth in the morning and 25 mg before bedtime. torsemide (Demadex) 20 MG tablet TAKE 1 TABLET BY MOUTH EVERY DAY 100 tablet 3 Turmeric 500 MG tablet Take 1 tablet by mouth in the morning. warfarin (Coumadin) 5 MG tablet 1 (one) time each day at the same time zinc gluconate 50 MG tablet Take 50 mg by mouth in the morning. [DISCONTINUED] etodolac (Lodine) 400 MG tablet Take 400 mg by mouth 2 (two) times a day as needed [DISCONTINUED] fluticasone (Flonase) 50 MCG/ACT nasal spray ADMINISTER 2 SPRAYS INTO EACH NOSTRIL DAILY SHAKE GENTLY. BEFORE FIRST USE, PRIME PUMP. AFTER USE, CLEAN TIP AND REPLACE CAP 48 mL 1 [DISCONTINUED] loratadine (Claritin) 10 MG tablet 1 (one) time each day at the same time No current facility-administered medications on file prior to visit. I have reviewed and reconciled the history and medication list with the patient today. Allergies Allergen Reactions Chlorzoxazone Hives and Unknown Gabapentin Unknown Social History Tobacco Use Smoking status: Never Smokeless tobacco: Never Vaping Use Vaping status: Never Used Substance Use Topics Alcohol use: Never Comment: caffeine: none Drug use: Never Family History Problem Relation Name Age of Onset Diabetes Mother Stroke Mother Heart disease Mother Heart failure Mother Diabetes Father Stroke Father Parkinsonism Father Multiple sclerosis Father Tongue cancer Brother Colon cancer Maternal Cousin Melanoma Neg Hx Past Medical History: Diagnosis Date A-fib ([facility]) Acute sinusitis Anemia DVT (deep venous thrombosis) ([facility]) GERD (gastroesophageal reflux disease) History of medical problems mucoperiosteal thickening maxillary sinuses History of medical problems 12/23/2019 ECHO EF 55-60% Mitral valve prolapse Seasonal allergic rhinitis Thyroid disease (CMS/HCC) Trigger finger, acquired Past Surgical History: Procedure Laterality Date * CT SCAN : SINUS 2012 mucoperiosteal thickeing maxillaty sinues CARDIOVERSION 11/2014 CARPAL TUNNEL RELEASE Bilateral right (2000), left (2002) COLONOSCOPY 2001, 2005, 2013 CT SCAN : HEAD WITH AND WITHOUT CONTRANST 2011 DILATION AND CURETTAGE 2005 EGD 03/30/2020 GASTRIC BYPASS 1998 HERNIA REPAIR 2000 LASIK 2000 eye OTHER SURGICAL HISTORY 1999 tummy tuck THYROIDECTOMY, PARTIAL TRIGGER FINGER RELEASE Bilateral VEIN LIGATION AND STRIPPING Right Visit Vitals BP 112/76 Pulse 58 Resp 16 Ht 5' 4 Wt 240 lb 12.8 oz SpO2 95% BMI 41.33 kg/m Smoking Status Never BSA 2.22 m Review of Systems Constitutional: Negative for chills, fatigue and fever. HENT: Positive for sinus pressure. Negative for congestion, ear pain, rhinorrhea and sore throat. Eyes: Negative for pain, discharge and visual disturbance. Respiratory: Negative for cough, shortness of breath and wheezing. Cardiovascular: Negative for chest pain, palpitations and leg swelling. Gastrointestinal: Negative for abdominal pain, constipation, diarrhea, nausea and vomiting. Genitourinary: Negative for difficulty urinating, dysuria and frequency. Musculoskeletal: Positive for back pain and neck pain. Negative for arthralgias. Skin: Negative for rash. Neurological: Positive for headaches. Negative for dizziness and numbness. Psychiatric/Behavioral: Negative for sleep disturbance. The patient is not nervous/anxious. Objective Physical Exam Constitutional: General: She is not in acute distress. Appearance: Normal appearance. She is well-developed. HENT: Head: Normocephalic and atraumatic. Right Ear: Tympanic membrane normal. Left Ear: Tympanic membrane and ear canal normal. Ears: Comments: Mild cerumen on right Nose: Rhinorrhea present. Rhinorrhea is purulent. Right Turbinates: Swollen. Left Turbinates: Swollen. Right Sinus: Frontal sinus tenderness present. No maxillary sinus tenderness. Left Sinus: Maxillary sinus tenderness and frontal sinus tenderness present. Mouth/Throat: Mouth: Mucous membranes are moist. Pharynx: Posterior oropharyngeal erythema (Mild) present. Eyes: General: No scleral icterus. Extraocular Movements: Extraocular movements intact. Conjunctiva/sclera: Conjunctivae normal. Pupils: Pupils are equal, round, and reactive to light. Neck: Vascular: No carotid bruit. Cardiovascular: Rate and Rhythm: Rhythm irregularly irregular. Heart sounds: Normal heart sounds. No murmur heard. Pulmonary: Effort: Pulmonary effort is normal. No respiratory distress. Breath sounds: Normal breath sounds. No wheezing, rhonchi or rales. Abdominal: General: Bowel sounds are normal. There is no distension. Palpations: Abdomen is soft. Tenderness: There is no abdominal tenderness. There is no guarding. Musculoskeletal: General: No deformity. Cervical back: Neck supple. Spasms (Right paraspinous), tenderness (Right paraspinous) and bony tenderness (Lower cervical spine) present. Pain with movement present. Decreased range of motion (Limited at extremes, worse with left lateral gaze). Right lower le+ Pitting Edema present. Left lower le+ Pitting Edema present. Comments: Pressing over right side of neck causes shooting pain down her right arm Skin: General: Skin is warm and dry. Capillary Refill: Capillary refill takes less than 2 seconds. Findings: No rash. Neurological: General: No focal deficit present. Mental Status: She is alert and oriented to person, place, and time. Cranial Nerves: No cranial nerve deficit. Sensory: No sensory deficit. Motor: No weakness. Gait: Gait normal. Deep Tendon Reflexes: Reflexes normal. Psychiatric: Mood and Affect: Mood normal. Behavior: Behavior normal. Thought Content: Thought content normal. Judgment: Judgment normal. Assessment & Plan 1. Medicare annual wellness visit, subsequent (Primary) Reviewed all relevant preventative screenings with the patient in detail. Medicare Wellness form completed and will be scanned into patient's chart. All needed testing was ordered. Will continue with yearly Medicare Wellness exams. - HEPATITIS C AB W/RFL RNS, PCR W/RFL GENOTYPE,LIPA - Lipid panel 2. ACP (advance care planning) Patient agreed to discuss advance care planning at today's wellness visit. We discussed that an advance directive is a legal document that only goes into effect if the patient is incapacitated and unable to speak for himself or herself. This would help healthcare providers to ensure that the patient gets the care that he or she wishes to receive. The goal is to provide a patient with the best possible quality of life. Encouraged patient to obtain a living will and durable power of litigation attorney for healthcare. We discussed telling [place] people about their advance directives such as close family members, and requested a copy to scan into the patient's EHR. An advance directive packet was offered to the patient. 3. Elevated AST (SGOT) This is a chronic medical condition that is stable since last assessment. Will continue to monitor with routine labs. - Lipid panel 4. Other problems related to lifestyle Patient was born in 1956. She is agreeable to Hepatitis C Screening. - HEPATITIS C AB W/RFL RNS, PCR W/RFL GENOTYPE,LIPA 5. Primary hypertension (CMS/HCC) Patient's blood pressure is currently well controlled. Continue with current medications and I will continue to monitor. Goal BP remains less than 130/80. - Lipid panel 6. Neck pain See instructions below. Given prednisone and muscle relaxer today. Follow up if no improvement. 7. Bilateral carpal tunnel syndrome This is a chronic medical condition that is stable since last assessment. No changes in treatment are suggested at this time. 8. Lumbar radiculopathy This is a chronic medical condition that is stable since last assessment. No changes in treatment are suggested at this time. 9. Obstructive sleep apnea syndrome Does not use a CPAP. States she cannot get used to it. Has tried multiple masks without tolerating them. Does sleep with HOB elevated. 10. Right cervical radiculopathy Advised of potential side effects of the steroid. Patient is to take the steroid with food. Do not take any NSAIDs while on Prednisone, Tylenol ok prn. Encouraged gentle heat to area. Encouraged gentle stretches. Advised patient that if symptoms do not improve imaging may be required for further evaluation, PT referral may also be appropriate. - predniSONE (Deltasone) 10 MG tablet; Take 1 tablet (10 mg) by mouth 3 (three) times a day for 3 days, THEN 1 tablet (10 mg) 2 (two) times a day for 3 days, THEN 1 tablet (10 mg) Daily for 3 days. Dispense: 18 tablet; Refill: 0 11. 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 No treatment needed at this time. 12. Longstanding persistent atrial fibrillation (CMS/HCC) The patient is seeing a medical communication specialist for this condition, treatment is deferred to that specialist. Correspondence from that specialist and any available testing were reviewed during today's visit. 13. Chronic venous insufficiency The patient is seeing a medical communication specialist for this condition, treatment is deferred to that specialist. Correspondence from that specialist and any available testing were reviewed during today's visit. 14. Mitral valve prolapse The patient is seeing a medical communication specialist for this condition, treatment is deferred to that specialist. Correspondence from that specialist and any available testing were reviewed during today's visit. 15. Abnormal intestinal absorption (CMS/HCC) This is a chronic medical condition that is stable since last assessment. No changes in treatment are suggested at this time. 16. Gastroesophageal reflux disease without esophagitis This is a chronic medical condition that is stable since last assessment. No changes in treatment are suggested at this time. Continue Famotidine and Pantoprazole. 17. Intestinal disaccharidase deficiencies and disaccharide malabsorption This is a chronic medical condition that is stable since last assessment. No changes in treatment are suggested at this time. 18. Atrophy of vagina The patient is seeing a medical communication specialist for this condition, treatment is deferred to that specialist. Correspondence from that specialist and any available testing were reviewed during today's visit. 19. Urge incontinence of urine This is a chronic medical condition that is stable since last assessment. No treatment indicated at this time. 20. Acquired pes planus of left foot This is a chronic medical condition that is stable since last assessment. No treatment indicated at this time. 21. Acquired trigger finger This is a chronic medical condition that is stable since last assessment. No treatment indicated at this time. 22. Cervical paraspinal muscle spasm Can take the Tizanidine as needed. cautioned it may cause drowsiness. Contact office if does not improve. - tiZANidine (Zanaflex) 4 MG tablet; Take 1 tablet (4 mg) by mouth every 12 (twelve) hours if needed for muscle spasms for up to 10 days Dispense: 20 tablet; Refill: 0 23. Cochlear hydrops of right ear This is a chronic medical condition that is stable since last assessment. Can be referred to ENT if needed. 24. Cramp of limb This is a chronic medical condition that is stable since last assessment. No treatment indicated at this time. 25. Disorder of bone and cartilage The patient is seeing a medical communication specialist for this condition, treatment is deferred to that specialist. Correspondence from that specialist and any available testing were reviewed during today's visit. 26. Edema of both legs Following with [facility]. Continue current treatment plan as per their recommendations. 27. Internal derangement of left shoulder The patient is seeing a medical communication specialist for this condition, treatment is deferred to that specialist. Correspondence from that specialist and any available testing were reviewed during today's visit. 28. Left Achilles tendinitis This is a chronic medical condition that is stable since last assessment. No treatment indicated at this time. 29. Monoarticular arthritis This is a chronic medical condition that is stable since last assessment. No treatment indicated at this time. 30. Pes planus of both feet This is a chronic medical condition that is stable since last assessment. No treatment indicated at this time. 31. Plantar fasciitis, bilateral This is a chronic medical condition that is stable since last assessment. No treatment indicated at this time. 32. Primary osteoarthritis of right knee The patient is seeing a medical communication specialist for this condition, treatment is deferred to that specialist. Correspondence from that specialist and any available testing were reviewed during today's visit. 33. Right anterior shoulder pain The patient is seeing a medical communication specialist for this condition, treatment is deferred to that specialist. Correspondence from that specialist and any available testing were reviewed during today's visit. 34. Senile osteoporosis ([facility]) The patient is seeing a medical communication specialist for this condition, treatment is deferred to that specialist. Correspondence from that specialist and any available testing were reviewed during today's visit. 35. Hyperparathyroidism ([facility]) The patient is seeing a medical communication specialist for this condition, treatment is deferred to that specialist. Correspondence from that specialist and any available testing were reviewed during today's visit. 36. [place] [place] Encouraged portion control, decrease simple sugars and carbohydrates, gradually increase activity level. Aim for gradual steady weight loss. 37. Non-toxic multinodular go[place] [place] The patient is seeing a medical communication specialist for this condition, treatment is deferred to that specialist. Correspondence from that specialist and any available testing were reviewed during today's visit. 38. BMI 40.0-44.9, adult [place] [place] Encouraged portion control, decrease simple sugars and carbohydrates, gradually increase activity level. Aim for gradual steady weight loss. 39. Subclinical hypothy[place] [place] The patient is seeing a medical communication specialist for this condition, treatment is deferred to that specialist. Correspondence from that specialist and any available testing were reviewed during today's visit. 40. Vitamin B-complex deficiency The patient is seeing a medical communication specialist for this condition, treatment is deferred to that specialist. Correspondence from that specialist and any available testing were reviewed during today's visit. 41. Vitamin D deficiency The patient is seeing a medical communication specialist for this condition, treatment is deferred to that specialist. Correspondence from that specialist and any available testing were reviewed during today's visit. 42. Other iron deficiency anemia This is a chronic medical condition that is stable since last assessment. Will continue to monitor with routine labs. 43. Thrombocytopenia ([facility]) This is a chronic medical condition that is stable since last assessment. Will continue to monitor with routine labs. 44. Other chronic sinusitis This is a chronic medical condition that is stable since last assessment. No changes in treatment are suggested at this time. Continue Flonase. 45. Anticoagulated The patient is seeing a medical communication specialist for this condition, treatment is deferred to that specialist. Correspondence from that specialist and any available testing were reviewed during today's visit. 46. Elevated levels of transaminase & lactic acid dehydrogenase This is a chronic medical condition that is stable since last assessment. No changes in treatment are suggested at this time. Will continue to monitor with routine labs. 47. Other fatigue This is a chronic medical condition that is stable since last assessment. No changes in treatment are suggested at this time. 48. Fibrocystic breast changes, unspecified laterality The patient is seeing a medical communication specialist for this condition, treatment is deferred to that specialist. Correspondence from that specialist and any available testing were reviewed during today's visit. 49. Former smoker The patient was counseled on the importance of maintaining cigarette smoking abstinence. The patient continues to refrain from smoking and is committed to avoiding tobacco use. 50. H/O thyroidectomy The patient is seeing a medical communication specialist for this condition, treatment is deferred to that specialist. Correspondence from that specialist and any available testing were reviewed during today's visit. 51. Height loss This is a chronic medical condition that is stable since last assessment. No changes in treatment are suggested at this time. 52. High risk medication use The patient is seeing a medical communication specialist for this condition, treatment is deferred to that specialist. Correspondence from that specialist and any available testing were reviewed during today's visit. 53. History of gastric bypass This is a chronic medical condition that is stable since last assessment. No changes in treatment are suggested at this time. 54. Hypercalcemia This is a chronic medical condition that is stable since last assessment. No changes in treatment are suggested at this time. Will continue to monitor with routine labs. 55. Hypokalemia This is a chronic medical condition that is stable since last assessment. No changes in treatment are suggested at this time. Will continue to monitor with routine labs. 56. Left-sided tinnitus This is a chronic medical condition that is stable since last assessment. Can be referred to ENT if needed. 57. LPRD (laryngopharyngeal reflux disease) This is a chronic medical condition that is stable since last assessment. No changes in treatment are suggested at this time. Continue Pantoprazole and Famotidine. 58. Chronic bilateral low back pain without sciatica This is a chronic medical condition that is stable since last assessment. No changes in treatment are suggested at this time. Tizanidine prn. 59. Lymphedema Following with [facility]. Continue current treatment plan as per their recommendations. 60. Piriformis syndrome, unspecified laterality This is a chronic medical condition that is stable since last assessment. No changes in treatment are suggested at this time. 61. Seasonal allergies This is a chronic medical condition that is stable since last assessment. No changes in treatment are suggested at this time. Continue Flonase as prescribed. 62. Sensorineural hearing loss (SNHL) of left ear with unrestricted hearing of right ear This is a chronic medical condition that is stable since last assessment. Can be referred to ENT if needed. Follow up in about 6 months (around 01/06/2025) for Hypertension. Marla MEDEIROS, PAKateC documented in this encounter [facility] 07-02-2024 History of Present illness Narrative Associated Order(s): L Inj/Asp: R glenohumeral Post-Procedure Diagnose(s): Complete tear of right rotator cuff, unspecified whether traumatic L Inj/Asp: R glenohumeral on 07/02/2024 9:57 AM Indications: pain Details: 25 G needle, ultrasound-guided Medications: 12 mg betamethasone acetate-betamethasone sodium phosphate 6 (3-3) MG/ML Consent was given by the patient. Images from the original note were not included. @ENCDATE@ Marla Figueredo is a 68 y.o. female who presents for Follow-up of the Right Shoulder HPI: History of Present Illness The patient is a 68-year-old female who presents today for evaluation of right shoulder pain. She is requesting a cortisone injection. Her last injection was given on 01/02/2024. Persistent discomfort in the right shoulder is reported, characterized by cracking, grinding, and popping sensations. Despite these symptoms, she retains the ability to elevate her arm without significant difficulty. She has expressed interest in receiving another cortisone injection, as she believes it provides relief for approximately six months. Pain management has been achieved with Tylenol 500 mg, initially taking up to six tablets daily but has since reduced to two tablets at night. Additionally, a recent episode of neck stiffness was mentioned, which has since improved but remains slightly sore. SUBJECTIVE: MEDICATIONS: Current Outpatient Medications Medication Instructions amoxicillin-clavulanate (Augmentin) 875-125 MG tablet 875 mg, Oral, 2 times daily Ascorbic Acid (vitamin C) 1000 MG tablet aspirin 81 MG EC tablet 1 tablet, Daily calcium carbonate 600 mg, Daily RT cholecalciferol (Vitamin D-3) 1.25 MG (91126 UT) capsule Take one capsule daily Copper Gluconate 2 MG tablet 1 tablet, Daily RT famotidine (Pepcid) 20 MG tablet ferrous sulfate 325 mg, Oral, 2 times daily fluticasone (Flonase) 50 MCG/ACT nasal spray 1 spray, Each Nostril, Daily, Shake gently. Before first use, prime pump. After use, clean tip and replace cap. fluticasone (Flonase) 50 MCG/ACT nasal spray 2 sprays, Each Nostril, Daily, Shake gently. Before first use, prime pump. After use, clean tip and replace cap. loratadine (Claritin) 10 MG tablet Every 24 hours MAGNESIUM PO 250 mg, Daily RT metoprolol tartrate (LOPRESSOR) 25 mg, Oral, Every 12 hours Caldwell-3 Fatty Acids (Fish Oil) 1200 MG capsule delayed-release pantoprazole (PROTONIX) 40 mg, Oral, Daily potassium chloride CR (Klor-Con M20) 20 MEQ ER tablet spironolactone (ALDACTONE) 25 mg, 2 times daily torsemide (Demadex) 20 MG tablet TAKE 1 TABLET BY MOUTH EVERY DAY Turmeric 500 MG tablet 1 tablet, Daily RT warfarin (Coumadin) 5 MG tablet Every 24 hours zinc gluconate 50 mg, Daily RT ALLERGIES: Allergies Allergen Reactions Chlorzoxazone Hives and Unknown Gabapentin Unknown SURGICAL HISTORY: Past Surgical History: Procedure Laterality Date * CT SCAN : SINUS 2012 mucoperiosteal thickeing maxillaty sinues CARDIOVERSION 11/2014 CARPAL TUNNEL RELEASE Bilateral right (2000), left (2002) COLONOSCOPY 2001, 2005, 2013 CT SCAN : HEAD WITH AND WITHOUT CONTRANST 2012 DILATION AND CURETTAGE 2005 EGD 03/30/2020 GASTRIC BYPASS 1997 HERNIA REPAIR 1999 LASIK 1999 eye OTHER SURGICAL HISTORY 1999 tummy tuck THYROIDECTOMY, PARTIAL TRIGGER FINGER RELEASE Bilateral VEIN LIGATION AND STRIPPING Right FAMILY HISTORY: Family History Problem Relation Name Age of Onset Diabetes Mother Stroke Mother Heart disease Mother Heart failure Mother Diabetes Father Stroke Father Parkinsonism Father Multiple sclerosis Father Tongue cancer Brother Colon cancer Maternal Cousin Melanoma Neg Hx SOCIAL HISTORY: Social History Tobacco Use Smoking status: Never Smokeless tobacco: Never Vaping Use Vaping status: Never Used Substance Use Topics Alcohol use: Never Comment: caffeine: none Drug use: Never Depression: Not at risk (06/24/2024) PHQ-2 PHQ-2 Score: 0 REVIEW OF SYMPTOMS: Review of Systems The review of systems, history and current medications list are all reviewed today. OBJECTIVE: Visit Vitals Ht 5' 4 Wt 248 lb BMI 42.57 kg/m Smoking Status Never BSA 2.25 m Physical Exam Alert and oriented, no acute distress. Mood and affect are appropriate. Ambulating independently. Gait is nonantalgic. RIGHT SHOULDER The skin is warm, dry and intact. She can raise her arm overhead. She has maintained passive forward flexion, abduction, internal and external rotation. Mild weakness with supraspinatus stress and supraspinatus isolation test. No weakness with external rotation and resisted supination. Negative belly-press test. Negative bear-hug test. Negative Hornblower. Positive Whipple. Positive Keita and Neer impingement. Positive Speed's. LEFT SHOULDER The skin is warm, dry, and intact. There is no swelling, atrophy, or deformity. Full forward elevation, abduction, internal and external rotation. No weakness with internal and external rotation, resisted supination, or forward flexion. Negative Tifton's. Negative Neer/Keita impingement. No tenderness over the AC joint. Negative cross-arm adduction. Negative Speed's and Yergason's. No instability. Ortho Exam Results ASSESSMENT AND PLAN: I reviewed the history, physical exam, diagnostic studies, and diagnosis with the patient. Assessment & Plan 1. Rotator cuff tear, SLAP tear, biceps tendinosis right shoulder. A limited ultrasound examination of the right shoulder was performed. The patient's hand was placed in the lap in the supinated position. The biceps tendon, subscapularis, and pectoralis major were visualized at the anterior aspect of the shoulder. The acromioclavicular joint was then identified at the superior aspect of the shoulder. The patient's hand was then placed behind the back near the waist. The probe was moved to the lateral aspect of the shoulder and the supraspinatus and infraspinatus were visualized in the subacromial space. The anterolateral aspect of the shoulder was then prepped with alcohol and betadine. Using ultrasound guidance, a 25-gauge 1-1/2 inch needle was inserted into the subacromial space adjacent to the supraspinatus. A mixture of 2 mL of 1% plain lidocaine and 2 mL of betamethasone was then injected. The patient tolerated this well. A Band-Aid was applied. The patient was instructed to ice the shoulder and to watch for any signs of infection including redness, increased pain, drainage from the injection site, fever, chills, etc. The patient was instructed to call the office if he/she experiences any adverse reaction to the injection. Follow-up: Follow up in 6 months for reassessment and likely another cortisone injection. A total of 30 to 39 minutes was spent on this patient encounter which included chart review, check in, nurse triage, history taking, physical examination, diagnostic study review, patient counseling and discussion, entering information into the patient's medical record, and coordinating patient care. Diagnoses and all orders for this visit: Complete tear of right rotator cuff, unspecified whether traumatic - L Inj/Asp: R glenohumeral Lazaro Milian D.O. Attestation This note was created using voice recognition through [employer]. documented in this encounter [facility] 06-24-2024 History of Present illness Narrative Subjective Patient ID: Marla Figueredo is a 68 y.o. female who presents for No chief complaint on file.. Marla presents today for sinus drainage, sore throat that has been going on for 2 weeks. She did take an antibiotic from the dentist but that didn't help. Current Outpatient Medications on File Prior to Visit Medication Sig Dispense Refill Ascorbic Acid (vitamin C) 1000 MG tablet 2 tablets aspirin 81 MG EC tablet Take 1 tablet by mouth in the morning. calcium carbonate 1500 (600 Ca) MG tablet Take 600 mg by mouth in the morning. cholecalciferol (Vitamin D-3) 1.25 MG (84644 UT) capsule Take one capsule daily 100 capsule 3 Copper Gluconate 2 MG tablet Take 1 tablet by mouth in the morning. famotidine (Pepcid) 20 MG tablet TAKE 1 TABLET BY MOUTH EVERY DAY AT BEDTIME NEEDED for 90 ferrous sulfate 325 (65 Fe) MG tablet Take 1 tablet (325 mg) by mouth in the morning and 1 tablet (325 mg) before bedtime. 60 tablet 11 fluticasone (Flonase) 50 MCG/ACT nasal spray Administer 1 spray into each nostril in the morning. Shake gently. Before first use, prime pump. After use, clean tip and replace cap.. 16 g 2 fluticasone (Flonase) 50 MCG/ACT nasal spray ADMINISTER 2 SPRAYS INTO EACH NOSTRIL DAILY SHAKE GENTLY. BEFORE FIRST USE, PRIME PUMP. AFTER USE, CLEAN TIP AND REPLACE CAP 48 mL 1 loratadine (Claritin) 10 MG tablet 1 (one) time each day at the same time. MAGNESIUM PO Take 250 mg by mouth in the morning. metoprolol tartrate (Lopressor) 25 MG tablet Take 1 tablet (25 mg) by mouth every 12 (twelve) hours 200 tablet 3 Caldwell-3 Fatty Acids (Fish Oil) 1200 MG capsule delayed-release Fish Oil pantoprazole (ProtoNix) 40 MG EC tablet TAKE 1 TABLET BY MOUTH DAILY 100 tablet 3 potassium chloride CR (Klor-Con M20) 20 MEQ ER tablet TAKE 4 TABLETS BY MOUTH EVERY DAY spironolactone (Aldactone) 25 MG tablet Take 25 [...] 50 mg by mouth in the morning. No current facility-administered medications on file prior to visit. I have reviewed and reconciled the history and medication list with the patient today. Allergies Allergen Reactions Chlorzoxazone Hives and Unknown Gabapentin Unknown Social History Tobacco Use Smoking status: Never Smokeless tobacco: Never Vaping Use Vaping status: Never Used Substance Use Topics Alcohol use: Never Comment: [...] AND CURETTAGE 2005 EGD 03/30/2020 GASTRIC BYPASS 1997 HERNIA REPAIR 1999 LASIK 1999 eye OTHER SURGICAL HISTORY 1999 tummy tuck THYROIDECTOMY, PARTIAL TRIGGER FINGER RELEASE Bilateral VEIN LIGATION AND STRIPPING Right Visit Vitals Smoking Status Never Review of Systems Constitutional: Negative. HENT: Positive for congestion, postnasal drip, sinus pressure and sinus pain. Eyes: Negative. Respiratory: Negative. Cardiovascular: Negative. Gastrointestinal: Negative. Genitourinary: Negative. Musculoskeletal: Negative. Skin: Negative. Neurological: Negative. Psychiatric/Behavioral: Negative. Hematological: Negative. Endocrine: Negative. Allergic/Immunologic: Negative. Objective Physical Exam Vitals reviewed. Constitutional: Appearance: She is ill-appearing. HENT: Head: Normocephalic and atraumatic. Right Ear: External ear normal. Left Ear: External ear normal. Ears: Comments: Bilateral TM's are dull, canals are clear Nose: Comments: Erythematous nasal turbinates, purulent drainage bilaterally Neurological: Mental Status: She is alert. Assessment/Plan 1. Acute frontal sinusitis, recurrence not specified (Primary) Discussed diagnosis with the pt, use of Augmentin and its most common side effects. Advised to increase her fluids, rest, continue the atb as ordered and follow up as needed. - amoxicillin-clavulanate (Augmentin) 875-125 MG tablet; Take 1 tablet (875 mg) by mouth in the morning and 1 tablet (875 mg) before bedtime. Do all this for 14 days. Dispense: 28 tablet; Refill: 0 - triamcinolone acetonide (Kenalog-40) injection 40 mg 2. PND (post-nasal drip) - triamcinolone acetonide (Kenalog-40) injection 40 mg No follow-ups on file. documented in this encounter [facility] 06-23-2024 Evaluation + Plan note Associated Problem(s): Subclinical hypothyroidism Continue monitoring. We will obtain thyroid function studies prior to her next appointment [facility] 06-23-2024 Evaluation + Plan note Associated Problem(s): Vitamin D deficiency 25 hydroxy vitamin-D levels at target on current regimen. We will obtain 25 hydroxyvitamin D prior to her next appointment in 1 year [facility] 06-23-2024 Miscellaneous Notes Associated Problem(s): Subclinical hypothyroidism Continue monitoring. We will obtain thyroid function studies prior to her next appointment Associated Problem(s): Vitamin D deficiency 25 hydroxy vitamin-D levels at target on current regimen. We will obtain 25 hydroxyvitamin D prior to her next appointment in 1 year Associated Problem(s): Primary hyperparathyroidism No compelling reasons to recommend parathyroidectomy. We will continue serum calcium monitoring Associated Problem(s): Age-related osteoporosis without current pathological fracture Patient doing well on calcium and vitamin-D supplementation without clinical evidence of fractures. On a drug holiday after completing 5 years of Reclast. We will obtain a follow-up bone mineral density in March 2025. Fall precautions and the importance of exercise discussed with patient documented in this encounter [facility] 06-23-2024 Evaluation + Plan note Associated Problem(s): Primary hyperparathyroidism No compelling reasons to recommend parathyroidectomy. We will continue serum calcium monitoring [facility] 06-23-2024 Evaluation + Plan note Associated Problem(s): Age-related osteoporosis without current pathological fracture Patient doing well on calcium and vitamin-D supplementation without clinical evidence of fractures. On a drug holiday after completing 5 years of Reclast. We will obtain a follow-up bone mineral density in March 2025. Fall precautions and the importance of exercise discussed with patient [facility] 06-23-2024 History of Present illness Narrative Reason for visit: Primary Hyperparathyroidism Secondary hyperparathyroidism Vitamin-D deficiency Osteoporosis Marla Figueredo is a 68 y.o. 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 She also has primary hyperparathyroidism which was initially masked by the presence of vitamin D deficiency. She is currently taking 65,000 units of vitamin D daily by taking 1 capsule of 50,000 units of D3 and 3 capsules of 5000 units of D3. She is also taking calcium 650 mg 2 tablets daily. . Blood work from June 2024 showed a serum calcium of 9.9, 25-hydroxyvitamin D 64, cr 0.8. Previous 24-hour urine showed normal urinary calcium at 101, high urinary sodium at 270. Mrs. Figueredo also has low bone mineral density. She was previously getting yearly Reclast infusions at the [facility] on a drug holiday after she completed 5 years of treatment. BMD done in July 2017 at [facility] showed a L1-L2 T score of -1.7, left femoral neck T score of -2.1 and forearm T score of -2.5. DEXA scan obtained in December 2020 showed a L1 T score of -2.1, unchanged, left femoral neck T score of -2.3, stable and forearm T score of -2.6, stable. Fasting urine NTX from July 2012 was elevated at 47.7, down to 37.1 in November 2013. Had a Dexa scan at [facility] in [facility] in March 2023 which showed a lumbar spine T-score of -1.4, left femoral neck T-score -1.7, right femoral neck T-score of -2.1 right total hip T-score of -2.3. Past Medical History: Diagnosis Date Osteopenia Primary hyperparathyroidism Vitamin D deficiency Current Outpatient Medications: ascorbic acid, vitamin C, (VITAMIN C) 1000 mg tablet, Vitamin C 1,000 mg tablet Take 1 tablet twice a day by oral route., Disp: , Rfl: aspirin 81 mg, daily., Disp: , Rfl: ferrous sulfate 325 (65 FE) mg tablet, ferrous sulfate 325 mg (65 mg iron) tablet, Disp: , Rfl: fluticasone propionate (FLONASE) 50 mcg/actuation nasal spray, Administer 2 sprays into each nostril once daily., Disp: , Rfl: metoprolol tartrate (LOPRESSOR) 25 mg tablet, metoprolol tartrate 25 mg tablet, Disp: , Rfl: potassium chloride 20 mEq tablet extended release, Take 1 tablet (20 mEq total) by mouth., Disp: , Rfl: spironolactone (ALDACTONE) 25 mg tablet, Take 2 tablets (50 mg total) by mouth in the morning., Disp: , Rfl: torsemide (DEMADEX) 20 mg tablet, Take 1 tablet (20 mg total) by mouth daily., Disp: , Rfl: warfarin (COUMADIN) 5 mg tablet, warfarin 5 mg tablet, Disp: , Rfl: cholecalciferol (VITAMIN D3) 50,000 units capsule, Take 1 capsule (50,000 Units total) by mouth in the morning., Disp: 100 capsule, Rfl: 3 Review of Systems Constitutional: Negative. HENT: Negative. Eyes: Negative. Respiratory: Negative. Cardiovascular: Negative for chest pain, palpitations and leg swelling. Endocrine: Negative for heat intolerance, polydipsia, polyphagia and polyuria. Genitourinary: Negative. Skin: Negative. Allergic/Immunologic: Negative. Hematological: Negative. Psychiatric/Behavioral: Negative. Tobacco Use: Medium Risk (06/23/2024) Patient History Smoking Tobacco Use: Former Smokeless Tobacco Use: Never Passive Exposure: Not on file History reviewed. No pertinent surgical history. Allergies Allergen Reactions Chlorzoxazone Hives and Other (See Comments) Gabapentin Other (See Comments) History reviewed. No pertinent family history. Physical examination Vitals: 06/23/24 0937 BP: 124/70 Weight: 113.1 kg (249 lb 4.8 oz) Physical Exam Constitutional: Appearance: Normal appearance. HENT: Head: Normocephalic. Eyes: Extraocular Movements: Extraocular movements intact. Pupils: Pupils are equal, round, and reactive to light. Comments: No exophalmos Neck: Thyroid: No thyroid mass, thyromegaly or thyroid tenderness. Vascular: No carotid bruit. Cardiovascular: Rate and Rhythm: Normal rate and regular rhythm. Pulses: Dorsalis pedis pulses are 3+ on the right side and 3+ on the left side. Pulmonary: Effort: No respiratory distress. Breath sounds: Normal breath sounds. No wheezing. Abdominal: General: Bowel sounds are normal. Palpations: Abdomen is soft. Tenderness: There is no abdominal tenderness. Musculoskeletal: General: No swelling or tenderness. Cervical back: No rigidity or tenderness. Right lower leg: No edema. Left lower leg: No edema. Right foot: No deformity, Charcot foot or foot drop. Left foot: No deformity, Charcot foot or foot drop. Feet: Right foot: Protective Sensation: 5 sites tested. 5 sites sensed. Left foot: Protective Sensation: 5 sites tested. 5 sites sensed. Lymphadenopathy: Cervical: No cervical adenopathy. Skin: General: Skin is warm and dry. Neurological: General: No focal deficit present. Mental Status: She is alert and oriented to person, place, and time. Cranial Nerves: No cranial nerve deficit. Sensory: No sensory deficit. Motor: No weakness. Gait: Gait normal. No results found for: CA , CREATININE , CALCIUMUR , CREATININEUR , [id number] , PTHINTACT , VITD25 , MG ASSESSMENT: 1. Subclinical hypothyroidism - Comprehensive metabolic panel; Future - Thyroid profile includes TSH FT4; Future 2. Vitamin D deficiency - Vitamin D 25 hydroxy; Future 3. Age-related osteoporosis without current pathological fracture - Dexa scan central skeletal; Future Age-related osteoporosis without current pathological fracture Patient doing well on calcium and vitamin-D supplementation without clinical evidence of fractures. On a drug holiday after completing 5 years of Reclast. We will obtain a follow-up bone mineral density in March 2025. Fall precautions and the importance of exercise discussed with patient Primary hyperparathyroidism ([facility]) No compelling reasons to recommend parathyroidectomy. We will continue serum calcium monitoring Vitamin D deficiency 25 hydroxy vitamin-D levels at target on current regimen. We will obtain 25 hydroxyvitamin D prior to her next appointment in 1 year Subclinical hypothyroidism Continue monitoring. We will obtain thyroid function studies prior to her next appointment documented in this encounter [facility] 04-30-2024 History of Present illness Narrative Images from the original note were not included. Subjective Patient ID: Marla Figueredo is a 68 y.o. female who presents for Leg Swelling. Pt noticed some increased edema in right lower leg while she was on vacation 3-5 days ago Pt taking all meds regularly When she got home from vacation she started using her leg pumps again and edema has improved Pt will be going out of town soon and wanted to get her leg checked and have her lungs checked before she leaves Current Outpatient Medications on File Prior to Visit Medication Sig Dispense Refill Ascorbic Acid (vitamin C) 1000 MG tablet 2 tablets aspirin 81 MG EC tablet Take 1 tablet by mouth in the morning. calcium carbonate 1500 (600 Ca) MG tablet Take 600 mg by mouth in the morning. cholecalciferol (Vitamin D-3) 1.25 MG (27914 UT) capsule Take one capsule daily 100 capsule 3 Copper Gluconate 2 MG tablet Take 1 tablet by mouth in the morning. famotidine (Pepcid) 20 MG tablet TAKE 1 TABLET BY MOUTH EVERY DAY AT BEDTIME NEEDED for 90 ferrous sulfate 325 (65 Fe) MG tablet Take 1 tablet (325 mg) by mouth in the morning and 1 tablet (325 mg) before bedtime. 60 tablet 11 fluticasone (Flonase) 50 MCG/ACT nasal spray Administer 1 spray into each nostril in the morning. Shake gently. Before first use, prime pump. After use, clean tip and replace cap.. 16 g 2 fluticasone (Flonase) 50 MCG/ACT nasal spray Administer 2 sprays into each nostril Daily Shake gently. Before first use, prime pump. After use, clean tip and replace cap. 16 g 0 loratadine (Claritin) 10 MG tablet 1 (one) time each day at the same time. MAGNESIUM PO Take 250 mg by mouth in the morning. metoprolol tartrate (Lopressor) 25 MG tablet Take 1 tablet (25 mg) by mouth every 12 (twelve) hours 200 tablet 3 Caldwell-3 Fatty Acids (Fish Oil) 1200 MG capsule delayed-release Fish Oil pantoprazole (ProtoNix) 40 MG EC tablet TAKE 1 TABLET BY MOUTH DAILY 100 tablet 3 potassium chloride CR (Klor-Con M20) 20 MEQ ER tablet TAKE 4 TABLETS BY MOUTH EVERY DAY spironolactone (Aldactone) 25 MG tablet Take 25 [...] mg by mouth in the morning. [DISCONTINUED] amoxicillin-clavulanate (Augmentin) 875-125 MG tablet Take 1 tablet (875 mg) by mouth in the morning and 1 tablet (875 mg) before bedtime. Do all this for 10 days. 20 tablet 0 No current facility-administered medications on file prior to visit. I have reviewed and reconciled the history and medication list with the patient today. Allergies Allergen Reactions Chlorzoxazone Hives and Unknown Gabapentin Unknown Social History Tobacco Use Smoking status: Never Smokeless tobacco: Never Vaping Use Vaping status: Never Used Substance Use Topics Alcohol use: Never Comment: [...] Laterality Date * CT SCAN : SINUS 2012 mucoperiosteal thickeing maxillaty sinues CARDIOVERSION 11/2014 CARPAL TUNNEL RELEASE Bilateral right (2000), left (2002) COLONOSCOPY 2001, 2005, 2013 CT SCAN : HEAD WITH AND WITHOUT CONTRANST 2011 DILATION AND CURETTAGE 2005 EGD 03/30/2020 GASTRIC BYPASS 1998 HERNIA REPAIR 2000 LASIK 2000 eye OTHER SURGICAL HISTORY 1999 tummy tuck THYROIDECTOMY, PARTIAL TRIGGER FINGER RELEASE Bilateral VEIN LIGATION AND STRIPPING Right Visit Vitals Ht 5' 4 BMI 41.88 kg/m Smoking Status Never BSA 2.24 m Review of Systems Constitutional: Negative. HENT: Negative. Eyes: Negative. Respiratory: Negative. Cardiovascular: Negative. Gastrointestinal: Negative. Genitourinary: Negative. Musculoskeletal: Negative. Skin: Right lower extremity with increased edema, small areas of forming blisters at the anterior leg, erythematous, warm to the touch Neurological: Negative. Psychiatric/Behavioral: Negative. Hematological: Negative. Endocrine: Negative. Allergic/Immunologic: Negative. Objective Physical Exam Vitals reviewed. Constitutional: Appearance: She is ill-appearing. HENT: Head: Normocephalic and atraumatic. Right Ear: External ear normal. Left Ear: External ear normal. Nose: Nose normal. Mouth/Throat: Mouth: Mucous membranes are moist. Eyes: Conjunctiva/sclera: Conjunctivae normal. Cardiovascular: Rate and Rhythm: Normal rate and regular rhythm. Heart sounds: Normal heart sounds. Pulmonary: Effort: Pulmonary effort is normal. Breath sounds: Normal breath sounds. Abdominal: Palpations: Abdomen is soft. Musculoskeletal: General: Normal range of motion. Cervical back: Normal range of motion and neck supple. Skin: General: Skin is warm and dry. Comments: RLE with erythema, warm and painful, small area of forming blisters to the right anterior leg Neurological: General: No focal deficit present. Mental Status: She is alert and oriented to person, place, and time. Psychiatric: Mood and Affect: Mood normal. Behavior: Behavior normal. Thought Content: Thought content normal. Judgment: Judgment normal. Assessment/Plan 1. Cellulitis, unspecified cellulitis site (Primary) Discussed diagnosis, use of keflex and its most common side effects. She is advised to continue this medication and follow up as needed. She will follow up with the lymphedema clinic when she returns from her vacation. - cephalexin (Keflex) 500 MG capsule; Take 1 capsule (500 mg) by mouth in the morning and 1 capsule (500 mg) in the evening and 1 capsule (500 mg) before bedtime. Do all this for 10 days. Dispense: 30 capsule; Refill: 0 No follow-ups on file. documented in this encounter [facility] 04-30-2024 Instructions Emily Park NP - 04/30/2024 1:00 PM EST Keflex is added today. documented in this encounter [facility] 04-16-2024 History of Present illness Narrative Images from the original note were not included. Subjective Patient ID: Marla Figueredo is a 68 y.o. female who presents for Sinusitis. Sinus Pain Patient complains of nasal congestion, post nasal drip, sneezing, and sore throat. Onset of symptoms was 1 week ago. Symptoms have been unchanged since that time. Sinusitis Associated symptoms include chills, congestion, ear pain, sinus pressure and a sore throat. Current Outpatient Medications on File Prior to Visit Medication Sig Dispense Refill Ascorbic Acid (vitamin C) 1000 MG tablet 2 tablets aspirin 81 MG EC tablet Take 1 tablet by mouth in the morning. calcium carbonate 1500 (600 Ca) MG tablet Take 600 mg by mouth in the morning. cholecalciferol (Vitamin D-3) 1.25 MG (54823 UT) capsule Take one capsule daily 100 capsule 3 Copper Gluconate 2 MG tablet Take 1 tablet by mouth in the morning. famotidine (Pepcid) 20 MG tablet TAKE 1 TABLET BY MOUTH EVERY DAY AT BEDTIME NEEDED for 90 ferrous sulfate 325 (65 Fe) MG tablet TAKE 1 TABLET BY MOUTH 3 TIMES A WEEK (SATURDAY, SATURDAY,SATURDAY) (Patient taking differently: Take 325 mg by mouth in the morning and 325 mg before bedtime.) 36 tablet 3 fluticasone (Flonase) 50 MCG/ACT [...] every 12 (twelve) hours 200 tablet 3 Caldwell-3 Fatty Acids (Fish Oil) 1200 MG capsule delayed-release Fish Oil pantoprazole (ProtoNix) 40 MG EC tablet TAKE 1 TABLET BY MOUTH DAILY 100 tablet 3 potassium chloride CR (Klor-Con M20) 20 MEQ ER tablet TAKE 4 TABLETS BY MOUTH EVERY DAY spironolactone (Aldactone) 25 MG tablet Take 25 [...] 50 mg by mouth in the morning. No current facility-administered medications on file prior to visit. I have reviewed and reconciled the history and medication list with the patient today. Allergies Allergen Reactions Chlorzoxazone Hives and Unknown Gabapentin Unknown Social History Tobacco Use Smoking status: Never Smokeless tobacco: Never Vaping Use Vaping status: Never Used Substance Use Topics Alcohol use: Never Comment: [...] VEIN LIGATION AND STRIPPING Right Visit Vitals Ht 5' 4 BMI 41.88 kg/m Smoking Status Never BSA 2.24 m Review of Systems Constitutional: Positive for chills. HENT: Positive for congestion, ear pain, postnasal drip, sinus pressure, sinus pain and sore throat. Eyes: Negative. Respiratory: Positive for wheezing. Cardiovascular: Negative. Gastrointestinal: Negative. Genitourinary: Negative. Musculoskeletal: Negative. Skin: Negative. Neurological: Negative. Psychiatric/Behavioral: Negative. Hematological: Negative. Endocrine: Negative. Allergic/Immunologic: Negative. Objective Physical Exam Vitals reviewed. Constitutional: Appearance: She is ill-appearing. HENT: Head: Normocephalic and atraumatic. Right Ear: External ear normal. Left Ear: External ear normal. Ears: Comments: TM's are dull in appearance, no bulge or retraction noted, canals with mild redness Nose: Congestion and rhinorrhea present. Mouth/Throat: Mouth: Mucous membranes are moist. Pharynx: Oropharyngeal exudate and posterior oropharyngeal erythema present. Eyes: Conjunctiva/sclera: Conjunctivae normal. Cardiovascular: Rate and Rhythm: Normal rate and regular rhythm. Heart sounds: Normal heart sounds. Pulmonary: Breath sounds: Normal breath sounds. Abdominal: Palpations: Abdomen is soft. Musculoskeletal: General: Normal range of motion. Cervical back: Normal range of motion and neck supple. Skin: General: Skin is warm and dry. Neurological: General: No focal deficit present. Mental Status: She is alert. Psychiatric: Mood and Affect: Mood normal. Behavior: Behavior normal. Thought Content: Thought content normal. Judgment: Judgment normal. Assessment/Plan 1. Acute non-recurrent sinusitis, unspecified location (Primary) Discussed diagnosis, use of augmentin and its most common side effects. She is advised to continue to push fluids, rest, continue otc tylenol as directed as needed, continue flonase as ordered and follow up as needed for continuing or worsening symptoms. - amoxicillin-clavulanate (Augmentin) 875-125 MG tablet; Take 1 tablet (875 mg) by mouth in the morning and 1 tablet (875 mg) before bedtime. Do all this for 10 days. Dispense: 20 tablet; Refill: 0 - fluticasone (Flonase) 50 MCG/ACT nasal spray; Administer 2 sprays into each nostril Daily Shake gently. Before first use, prime pump. After use, clean tip and replace cap. Dispense: 16 g; Refill: 0 2. Edema of lower extremity This pt continues with ble edema, she continues on torsemide as ordered. 3. Bariatric surgery status Stable - ferrous sulfate 325 (65 Fe) MG tablet; Take 1 tablet (325 mg) by mouth in the morning and 1 tablet (325 mg) before bedtime. Dispense: 60 tablet; Refill: 11 4. Unspecified atrial fibrillation (CMS/HCC) Metoprolol continues as ordered. warfarin continues as ordered. 5. Morbid (severe) obesity due to excess calories (CMS/HCC) Stable. 6. Body mass index (BMI) 40.0-44.9, adult (CMS/HCC) Stable. No follow-ups on file. documented in this encounter [facility] 04-16-2024 Instructions Emily Park NP - 04/16/2024 3:30 PM EST Augmentin added Flonase added Refill of feso4 is sent. documented in this encounter [facility] 03-18-2024 History of Present illness Narrative Images from the original note were not included. Sherlyn Rucker D.O. Obstetrics and Gynecology Patient: aMrla Figueredo : 1955 (68 y.o.) Yearly Wellness Exam Date: 03/18/2024 Reason for Visit - Chief Complaint Patient presents with Gynecologic Exam Pt states notice since last year notice a little more bladder leakage. Pt States she was told by a friend to do Kegel exercise. Denies vaginal bleeding/spotting. Denies breast concerns. Pt is scheduled tomorrow for mammogram. Visit Vitals BP 136/78 Wt 244 lb BMI 41.88 kg/m Smoking Status Never BSA 2.24 m Allergies Allergen Reactions Chlorzoxazone Hives and Unknown Gabapentin Unknown History of Present Illness, Associated Treatments and Results - OB History Para Term AB Living 4 3 3 0 1 0 SAB IAB Ectopic Multiple Live Births 0 0 0 0 0 # Outcome Date GA Lbr Michael/2nd Weight Sex Type Anes PTL Lv 4 AB 3 Term 2 Term 1 Term Obstetric Comments Pap smear 02/15/23 wnl, Mammogram 02/20/23 wnl @ [facility] DEXA 03/25/23 Review of Systems - General: Chills denies. Allergy/Immunology: Rash Denies. ENT: Denies Difficulty swallowing. Endocrine: Denies Cold intolerance denies. Heat intolerance denied. Respiratory: Denies Chest pain denies. Shortness of breath denies. Breast: Denies Bloody nipple discharge denies. Breast lump denies. Cardiovascular: Denies Chest pain. Gastrointestinal: Abdominal pain denies. Blood in stool denies. Hematology: Easy bruising denies. Prolonged bleeding denies. Women Only: Breast lump denies. Vaginal bleeding between periods is denied. Vaginal discharge/itching denied. Genitourinary: Blood in urine denies. Painful urination denies. Incontinence denies. Skin: Hair changes. Neurologic: Seizures denied. Stroke denies. Psychiatric: Anxiety denies. Depressed mood denies. Medication Documentation Review Audit Reviewed by Ivette Rizo MA (Chocolate Finisher Operator) on 03/18/24 at 0935 Medication Order Taking? Sig Documenting Provider Last Dose Status Ascorbic Acid (vitamin C) 1000 MG tablet [id number] No 2 tablets Historical ProviderMD Taking Active aspirin 81 MG EC tablet [id number] Take 1 tablet by mouth in the morning. Historical Provider, Active calcium carbonate 1500 (600 Ca) MG tablet [id number] No Take 600 mg by mouth in the morning. Emily Park NP Taking Active Discontinued 03/12/24 0912 cholecalciferol (Vitamin D-3) 1.25 MG (59719 UT) capsule [id number] No Take one capsule daily Noel Farnsworth MD Taking Active Copper Gluconate 2 MG tablet [id number] No Take 1 tablet by mouth in the morning. Emily Park NP Taking Active famotidine (Pepcid) 20 MG tablet [id number] No TAKE 1 TABLET BY MOUTH EVERY DAY AT BEDTIME NEEDED for 90 Historical Provider, Taking Active ferrous sulfate 325 (65 Fe) MG tablet [id number] No TAKE 1 TABLET BY MOUTH 3 TIMES A WEEK (SATURDAY, SATURDAY,THERESA) Patient taking differently: Take 325 mg by mouth in the morning and 325 mg before bedtime. Noel Farnsworth MD Taking Active fluticasone (Flonase) 50 MCG/ACT nasal spray [id number] No Administer 1 spray into each nostril in the morning. Shake gently. Before first use, prime pump. After use, clean tip and replace cap.. KATIE Parker Taking Active loratadine (Claritin) 10 MG tablet [id number] No 1 (one) time each day at the same time. Historical Provider, Taking Active MAGNESIUM PO [id number] No Take 250 mg by mouth in the morning. Emily Park NP Taking Active metoprolol tartrate (Lopressor) 25 MG tablet [id number] No Take 1 tablet (25 mg) by mouth every 12 (twelve) hours Noel Farnsworth MD Taking Active Caldwell-3 Fatty Acids (Fish Oil) 1200 MG capsule delayed-release [id number] No Fish Oil Historical Provider, Taking Active pantoprazole (ProtoNix) 40 MG EC tablet [id number] TAKE 1 TABLET BY MOUTH DAILY Noel Farnsworth MD Active potassium chloride CR (Klor-Con M20) 20 MEQ ER tablet [id number] No TAKE 4 TABLETS BY MOUTH EVERY DAY Historical Provider, Taking Active spironolactone (Aldactone) 25 MG tablet [id number] No Take 25 mg by mouth in the morning and 25 mg before bedtime. Historical Provider, Taking Active sulfamethoxazole-trimethoprim (Bactrim DS) 800-160 MG per tablet [id number] Take 1 tablet by mouth in the morning and 1 tablet before bedtime. Do all this for 7 days. Noel Farnsworth MD Active torsemide (Demadex) 20 MG tablet [id number] No TAKE 1 TABLET BY MOUTH EVERY DAY Mallory Stewart MD Taking Active Turmeric 500 MG tablet [id number] No Take 1 tablet by mouth in the morning. Emily Park NP Taking Active warfarin (Coumadin) 5 MG tablet [id number] No 1 (one) time each day at the same time. Historical Provider, Taking Active zinc gluconate 50 MG tablet [id number] No Take 50 mg by mouth in the morning. Emily Park NP Taking Active Past Medical History: Diagnosis Date A-fib ([facility]) Acute sinusitis Anemia DVT (deep venous thrombosis) [...] AND CURETTAGE 2005 EGD 03/30/2020 GASTRIC BYPASS 1997 HERNIA REPAIR 1999 LASIK 1999 eye OTHER SURGICAL HISTORY 1999 tummy tuck THYROIDECTOMY, PARTIAL TRIGGER FINGER RELEASE Bilateral VEIN LIGATION AND STRIPPING Right Family History Problem Relation Name Age of Onset Diabetes Mother Stroke Mother Heart disease Mother Heart failure Mother Diabetes Father Stroke Father Parkinsonism Father Multiple sclerosis Father Tongue cancer Brother Colon cancer Maternal Cousin Melanoma Neg Hx Physical Exam - General appearance, mentation, extraocular movements, facial strength and movement, hearing, upper and lower extremity strength and tone, sensation to gross testing, coordination, and gait are normal or at baseline unless noted below. General Examination: GENERAL APPEARANCE: alert oriented well developed, well nourished. HEAD: normocephalic atraumatic. EYES: sclera anicteric. EARS: no obvious hearing deficit. SKIN: warm and dry. HEART: regular rate and rhythm. LUNGS: clear to auscultation bilaterally. CHEST: axillary nodes grossly normal. BREASTS: no masses palpable bilaterally, normal nipples bilaterally. ABDOMEN: soft, nontender, nondistended, no masses palpable. BACK: no costovertebral angle tenderness, no obvious scoliosis/kyphosis. FEMALE GENITOURINARY: atrophic vaginal mucosa, cervix absent of lesions, nontender, uterus AV, mobile, ovaries nonpalpable and nontender. EXTREMITIES: no edema. NEUROLOGIC: alert and oriented. PSYCH: cooperative with exam. Diagnoses and all orders for this visit: Vaginal atrophy Encounter for mammogram to establish baseline mammogram - Bilateral screening mammogram with tomosynthesis Pelvic and breast exam completed. Findings of today's exam discussed with the patient. Continue MSBE. Ca/Vit D recommendations reviewed with the patient. The patient is to contact the office with any changes to her gynecological condition. The patient is to return in 1 year or as needed ICD-10-CM 1. Vaginal atrophy N95.2 2. Encounter for mammogram to establish baseline mammogram Z12.31 documented in this encounter [facility] 03-12-2024 History of Present illness Narrative Images from the original note were not included. HPI Follow-up Additional comments: Sinusitis/uti-treated with abx Results Additional comments: labs Last edited by Philomena Fuentes LPN on 03/12/2024 9:08 AM. Subjective Patient ID: Marla Figueredo is a 68 y.o. female who presents for Follow-up (Sinusitis/uti-treated with abx), Results (labs), and Anemia. Marla is present today for evaluation of sinus issues. Admits sinus pressure, congestion post nasal drainage, sore throat, hoarseness. She finished abx was feeling better while on abx but when she finished abx symptoms seemed to worsened Urinary Tract Infection Patient states she feels urinary symptoms have resolved Labs completed Sinusitis UTI Current Outpatient Medications on File Prior to Visit Medication Sig Dispense Refill Ascorbic Acid (vitamin C) 1000 MG tablet 2 tablets aspirin 81 MG EC tablet Take 1 tablet by mouth in the morning. calcium carbonate 1500 (600 Ca) MG tablet Take 600 mg by mouth in the morning. cholecalciferol (Vitamin D-3) 1.25 MG (52824 UT) capsule Take one capsule daily 100 capsule 3 Copper Gluconate 2 MG tablet Take 1 tablet by mouth in the morning. famotidine (Pepcid) 20 MG tablet TAKE 1 TABLET BY MOUTH EVERY DAY AT BEDTIME NEEDED for 90 ferrous sulfate 325 (65 Fe) MG tablet TAKE 1 TABLET BY MOUTH 3 TIMES A WEEK (SATURDAY, SATURDAY,SATURDAY) (Patient taking differently: Take 325 mg by mouth in the morning and 325 mg before bedtime.) 36 tablet 3 fluticasone (Flonase) 50 MCG/ACT [...] every 12 (twelve) hours 200 tablet 3 Caldwell-3 Fatty Acids (Fish Oil) 1200 MG capsule delayed-release Fish Oil pantoprazole (ProtoNix) 40 MG EC tablet TAKE 1 TABLET BY MOUTH DAILY 100 tablet 3 potassium chloride CR (Klor-Con M20) 20 MEQ ER tablet TAKE 4 TABLETS BY MOUTH EVERY DAY spironolactone (Aldactone) 25 MG tablet Take 25 [...] mg by mouth in the morning. [DISCONTINUED] cefdinir (Omnicef) 300 MG capsule Take 1 capsule (300 mg) by mouth in the morning and 1 capsule (300 mg) before bedtime. Do all this for 7 days. 14 capsule 0 No current facility-administered medications on file prior to visit. I have reviewed and reconciled the history and medication list with the patient today. Allergies Allergen Reactions Chlorzoxazone Hives and Unknown Gabapentin Unknown Social History Tobacco Use Smoking status: Never Smokeless tobacco: Never Vaping Use Vaping status: Never Used Substance Use Topics Alcohol use: Never Comment: [...] SCAN : HEAD WITH AND WITHOUT CONTRANST 2012 DILATION AND CURETTAGE 2005 EGD 03/30/2020 GASTRIC BYPASS 1998 HERNIA REPAIR 2000 LASIK 2000 eye OTHER SURGICAL HISTORY 2000 tummy tuck THYROIDECTOMY, PARTIAL TRIGGER FINGER RELEASE Bilateral VEIN LIGATION AND STRIPPING Right Visit Vitals BP 122/70 Pulse 76 Temp 97.8 F Ht 5' 4 Wt 248 lb BMI 42.57 kg/m Smoking Status Never BSA 2.25 m Review of Systems Objective Physical Exam Constitutional: General: She is not in acute distress. Appearance: Normal appearance. She is well-developed. HENT: Head: Normocephalic and atraumatic. Right Ear: Tympanic membrane and ear canal normal. Left Ear: Tympanic membrane and ear canal normal. Nose: Congestion present. Mouth/Throat: Mouth: Mucous membranes are moist. Pharynx: Posterior oropharyngeal erythema present. Eyes: General: No scleral icterus. Conjunctiva/sclera: Conjunctivae normal. Cardiovascular: Rate and Rhythm: Normal rate and [...] and Affect: Mood normal. Behavior: Behavior normal. Office Visit on 02/28/2024 Component Date Value Ref Range Status WHITE BLOOD CELL COUNT 02/28/2024 6.1 3.8 - 10.8 Thousand/uL Final RED BLOOD CELL COUNT 02/28/2024 4.04 3.80 - 5.10 Million/uL Final HEMOGLOBIN 02/28/2024 11.4 (L) 11.7 - 15.5 g/dL Final HEMATOCRIT 02/28/2024 36.1 35.0 - 45.0 % Final MCV 02/28/2024 89.4 80.0 - 100.0 fL Final MCH 02/28/2024 28.2 27.0 - 33.0 pg Final MCHC 02/28/2024 31.6 (L) 32.0 - 36.0 g/dL Final Comment: For adults, a slight decrease in the calculated MCHC value (in the range of 30 to 32 g/dL) is most likely not clinically significant; however, it should be interpreted with caution in correlation with other red cell parameters and the patient's clinical condition. RDW 02/28/2024 12.7 11.0 - 15.0 % Final PLATELET COUNT 02/28/2024 142 140 - 400 Thousand/uL Final MPV 02/28/2024 11.4 7.5 - 12.5 fL Final ABSOLUTE NEUTROPHILS 02/28/2024 4,484 1,500 - 7,800 cells/uL Final ABSOLUTE LYMPHOCYTES 02/28/2024 1,122 850 - 3,900 cells/uL Final ABSOLUTE MONOCYTES 02/28/2024 415 200 - 950 cells/uL Final ABSOLUTE EOSINOPHILS 02/28/2024 61 15 - 500 cells/uL Final ABSOLUTE BASOPHILS 02/28/2024 18 0 - 200 cells/uL Final NEUTROPHILS 02/28/2024 73.5 % Final LYMPHOCYTES 02/28/2024 18.4 % Final MONOCYTES 02/28/2024 6.8 % Final EOSINOPHILS 02/28/2024 1.0 % Final BASOPHILS 02/28/2024 0.3 % Final VITAMIN B12 02/28/2024 1,015 200 - 1,100 pg/mL Final FOLATE, SERUM 02/28/2024 >24.0 ng/mL Final Comment: Reference Range Low: <3.4 Borderline: 3.4-5.4 Normal: >5.4 RETICULOCYTE COUNT, AUTOMATED 02/28/2024 2.2 % Final RETICULOCYTE, ABSOLUTE 02/28/2024 88,880 (H) 20,000 - 80,000 cells/uL Final Glucose, UA 02/28/2024 Negative Negative - 1999(110) ++++ mg/dL Final Bilirubin, UA 02/28/2024 Negative Negative - 4(70) +++ mg/dL Final Ketones, UA 02/28/2024 Negative Negative - 160(16) ++++ mg/dL Final Spec Grav, UA 02/28/2024 1.015 1 - 1.03 Final Blood, UA 02/28/2024 Negative Negative - 50 Binh/mcL Final pH, UA 02/28/2024 6.0 5 - 9 Final Protein, UA 02/28/2024 Negative Negative - 1999(20) ++++ mg/dL Final Urobilinogen, UA 02/28/2024 0.2 0.2 - 12 mg/dL Final Leukocytes, UA 02/28/2024 Moderate Negative - 500+++ Ashu/mcL Final Nitrite, UA 02/28/2024 Positive Negative - Positive Final Clinisync Result Encounter on 01/20/2024 Component Date Value Ref Range Status [facility] WBC 01/20/2024 6.2 4.0 - 11.0 10 3/uL Final [facility] RBC 01/20/2024 3.79 (L) 4.20 - 5.40 10 6/uL Final [facility] HGB 01/20/2024 10.8 (L) 12.0 - 16.0 g/dL Final [facility] HCT 01/20/2024 35.2 (L) 36.0 - 48.0 % Final [facility] MCV 01/20/2024 92.9 81.0 - 99.0 fL Final [facility] MCH 01/20/2024 28.5 26.7 - 34.0 pg Final [facility] MCHC 01/20/2024 30.7 29.9 - 35.2 g/dL Final [facility] RDW 01/20/2024 14.2 11.0 - 15.0 % Final [facility] PLT 01/20/2024 124 (L) 150 - 450 10 3/uL Final [facility] MPV 01/20/2024 10.7 9.5 - 13.5 fL Final NEUTROPHILS PERCENT AUTO 01/20/2024 74.9 43.0 - 75.0 % Final LYMPHOCYTES PERCENT AUTO 01/20/2024 17.6 (L) 20.5 - 60.0 % Final MONOCYTES PERCENT AUTO 01/20/2024 5.2 1.7 - 12.0 % Final [facility] EO % 01/20/2024 1.5 0.9 - 7.0 % Final BASOPHILS PERCENT AUTO 01/20/2024 0.5 0.2 - 2.0 % Final IMMATURE GRANULOCYTES PCT AUTO 01/20/2024 0.3 0.0 - 0.5 % Final NEUTROPHILS ABSOLUTE AUTO 01/20/2024 4.6 1.4 - 6.5 10 3/uL Final LYMPHOCYTES ABSOLUTE AUTO 01/20/2024 1.1 (L) 1.2 - 3.8 10 3/uL Final MONOCYTES ABSOLUTE AUTO 01/20/2024 0.3 0.3 - 0.8 10 3/uL Final TBH EO # 01/20/2024 0.1 0.0 - 0.7 10 3/uL Final BASOPHILS ABSOLUTE AUTO 01/20/2024 0.0 0.0 - 0.1 10 3/uL Final IMMATURE GRANULOCYTES ABS AUTO 01/20/2024 0.02 0.00 - 0.03 10 3/uL Final SODIUM 01/20/2024 142 136 - 145 mmol/L Final POTASSIUM 01/20/2024 4.1 3.5 - 5.1 mmol/L Final CHLORIDE 01/20/2024 109 (H) 98 - 107 mmol/L Final CARBON DIOXIDE 01/20/2024 23.9 21.0 - 32.0 mmol/L Final ANION GAP 01/20/2024 13.2 Final GLUCOSE 01/20/2024 91 74 - 106 mg/dL Final BLOOD UREA NITROGEN 01/20/2024 29.0 (H) 7.0 - 18.0 mg/dL Final CREATININE 01/20/2024 0.91 0.55 - 1.02 mg/dL Final [facility] EGFR-AF [place] 01/20/2024 >60 >=60 mL/min/1.73m 2 Final [facility] EGFR-NON AF [place] 01/20/2024 >60 >=60 mL/min/1.73m 2 Final BUN CREATININE RATIO 01/20/2024 31.9 Final CALCIUM 01/20/2024 9.9 8.5 - 10.1 mg/dL Final BILIRUBIN TOTAL 01/20/2024 1.0 0.2 - 1.0 mg/dL Final ASPARTATE AMINO TRANSFERASE 01/20/2024 18 15 - 37 U/L Final ALANINE AMINOTRANSFERASE 01/20/2024 23 14 - 59 U/L Final ALKALINE PHOSPHATASE 01/20/2024 77 46 - 116 U/L Final TOTAL PROTEIN 01/20/2024 6.3 (L) 6.4 - 8.2 g/dL Final ALBUMIN LEVEL 01/20/2024 3.0 (L) 3.4 - 5.0 g/dL Final GLOBULIN 01/20/2024 3.3 g/dL Final ALBUMIN GLOBULIN RATIO 01/20/2024 0.9 Final PHOSPHORUS 01/20/2024 2.8 2.6 - 4.7 mg/dL Final MAGNESIUM 01/20/2024 2.2 1.8 - 2.4 mg/dL Final [facility] IRON 01/20/2024 54.0 50.0 - 170.0 ug/dL Final [facility] TOTAL IRON BINDING CAPACITY 01/20/2024 247.0 (L) 250.0 - 450.0 ug/dL Final [facility] PERCENT IRON SATURATION 01/20/2024 21.9 % Final FERRITIN 01/20/2024 604.0 (H) 8.0 - 252.0 ng/mL Final VITAMIN D 01/20/2024 57.9 ng/mL Final Comment: <20 ng/mL Vit D deficient 20-<30 ng/mL Vit D insufficient 30-100 ng/mL Vit D sufficient >100 ng/mL Potential Toxicity FOLATE 01/20/2024 21.30 8.60 - 58.90 ng/mL Final VITAMIN B12 01/20/2024 826 232 - 1245 pg/mL Final Comment: Performed at: [address] [id number] Chief Bank Examiner: Bharat Cain PhD, Phone: [phone] VITAMIN B1 (THIAMINE), BLOOD 01/20/2024 193.7 66.5 - 200.0 nmol/L Final Comment: This test was developed and its performance characteristics determined by [facility]. It has not been cleared or approved by the Food and Drug Administration. Performed at: [address] [id number] Chief Bank Examiner: Bernice Gant MD, Phone: [phone] COPPER LEVEL 01/20/2024 88 80 - 158 ug/dL Final Comment: This test was developed and its performance characteristics determined by [facility]. It has not been cleared or approved by the Food and Drug Administration. Detection Limit = 5 ZINC LEVEL 01/20/2024 90 44 - 115 ug/dL Final Comment: This test was developed and its performance characteristics determined by [facility]. It has not been cleared or approved by the Food and Drug Administration. Detection Limit = 5 Performed at: [address] [id number] Chief Bank Examiner: Bernice Gant MD, Phone: [phone] VITAMIN A, SERUM 01/20/2024 51.2 22.0 - 69.5 ug/dL Final Comment: Reference intervals for vitamin A determined from [facility] internal studies. Individuals with vitamin A less than 20 ug/dL are considered vitamin A deficient and those with serum concentrations less than 10 ug/dL are considered severely deficient. This test was developed and its performance characteristics determined by [facility]. It has not been cleared or approved by the Food and Drug Administration. Performed at: [address] [id number] Chief Bank Examiner: Bernice Gant MD, Phone: [phone] Assessment/Plan Diagnoses and all orders for this visit: Acute non-recurrent sinusitis, unspecified location - sulfamethoxazole-trimethoprim (Bactrim DS) 800-160 MG per tablet; Take 1 tablet by mouth in the morning and 1 tablet before bedtime. Do all this for 7 days. Acute cystitis without hematuria - POCT Urinalysis dipstick - This has cleared. Anemia, unspecified type - Improved. Labs discussed. Follow up in about 6 months (around 09/09/2024) for Routine F/U. documented in this encounter [facility] 02-28-2024 History of Present illness Narrative Images from the original note were not included. HPI Results Additional comments: LABS--SPECIFICALLY THE CBC RESULTS Last edited by Philomena Fuentes LPN on 02/28/2024 8:59 AM. Subjective Patient ID: Marla Figueredo is a 68 y.o. female who presents for Sinusitis, Results (LABS--SPECIFICALLY THE CBC RESULTS), and UTI. Marla is present today for evaluation of sinus issues. Admits sinus pressure, and a little blood, post nasal drainage, sore throat, hoarseness. She has been sick 2 weeks Urinary Tract Infection Patient complains of cloudy and stronger smelling. She has had symptoms for 1 week. Patient denies fever, stomach ache, and vaginal discharge. Sinusitis UTI Current Outpatient Medications on File Prior to Visit Medication Sig Dispense Refill Ascorbic Acid (vitamin C) 1000 MG tablet 2 tablets aspirin 81 MG EC tablet Take 1 tablet by mouth in the morning. calcium carbonate 1500 (600 Ca) MG tablet Take 600 mg by mouth in the morning. cholecalciferol (Vitamin D-3) 1.25 MG (28305 UT) capsule Take one capsule daily 100 capsule 3 Copper Gluconate 2 MG tablet Take 1 tablet by mouth in the morning. famotidine (Pepcid) 20 MG tablet TAKE 1 TABLET BY MOUTH EVERY DAY AT BEDTIME NEEDED for 90 ferrous sulfate 325 (65 Fe) MG tablet TAKE 1 TABLET BY MOUTH 3 TIMES A WEEK (SATURDAY, SATURDAY,SATURDAY) (Patient taking differently: Take 325 mg by mouth in the morning and 325 mg before bedtime.) 36 tablet 3 fluticasone (Flonase) 50 MCG/ACT [...] every 12 (twelve) hours 200 tablet 3 Caldwell-3 Fatty Acids (Fish Oil) 1200 MG capsule delayed-release Fish Oil pantoprazole (ProtoNix) 40 MG EC tablet TAKE 1 TABLET BY MOUTH DAILY 100 tablet 3 potassium chloride CR (Klor-Con M20) 20 MEQ ER tablet TAKE 4 TABLETS BY MOUTH EVERY DAY spironolactone (Aldactone) 25 MG tablet Take 25 [...] 50 mg by mouth in the morning. No current facility-administered medications on file prior to visit. I have reviewed and reconciled the history and medication list with the patient today. Allergies Allergen Reactions Chlorzoxazone Hives and Unknown Gabapentin Unknown Social History Tobacco Use Smoking status: Never Smokeless tobacco: Never Vaping Use Vaping status: Never Used Substance Use Topics Alcohol use: Never Comment: [...] AND CURETTAGE 2005 EGD 03/30/2020 GASTRIC BYPASS 1997 HERNIA REPAIR 1999 LASIK 1999 eye OTHER SURGICAL HISTORY 1999 tummy tuck THYROIDECTOMY, PARTIAL TRIGGER FINGER RELEASE Bilateral VEIN LIGATION AND STRIPPING Right Visit Vitals BP 126/70 Pulse 76 Temp 96.9 F Ht 5' 4 Wt 249 lb SpO2 97% BMI 42.74 kg/m Smoking Status Never BSA 2.26 m Review of Systems Objective Physical Exam Constitutional: General: She is not in acute distress. Appearance: Normal appearance. She is well-developed. HENT: Head: Normocephalic and atraumatic. Right Ear: Tympanic membrane and ear canal normal. Left Ear: Tympanic membrane and ear canal normal. Nose: Congestion present. Mouth/Throat: Mouth: Mucous membranes are moist. Pharynx: Posterior oropharyngeal erythema present. Eyes: General: No scleral icterus. Conjunctiva/sclera: Conjunctivae normal. Cardiovascular: Rate and Rhythm: Normal rate and [...] visit: Acute non-recurrent sinusitis, unspecified location - cefdinir (Omnicef) 300 MG capsule; Take 1 capsule (300 mg) by mouth in the morning and 1 capsule (300 mg) before bedtime. Do all this for 7 days. Acute cystitis without hematuria Anemia, unspecified type - Vitamin B12; Future - Folate; Future - CBC and differential - Reticulocytes; Future Follow up in about 1 week (around 03/06/2024) for Test/Lab Review, Recheck. documented in this encounter [facility] 01-03-2024 History of Present illness Narrative Images from the original note were not included. Subjective Patient ID: Marla Figueredo is a 68 y.o. female who presents for sinus issues. Marla is present today for evaluation of sinus issues. Admits sinus pressure, a little cough with green phlegm, and a little blood, post nasal drainage, sore throat, hoarseness. She has been sick since Saturday. She has been using a humidifer and vicks rub. Had a wisdom tooth and another tooth pulled on Saturday. Wakes up with dry mouth all the time, but does have sleep apnea. Wanting to discuss the Watchman Procedure. [place] that this is for A fib. Current Outpatient Medications on File Prior to Visit Medication Sig Dispense Refill pantoprazole (ProtoNix) 40 MG EC tablet TAKE 1 TABLET BY MOUTH DAILY 100 tablet 3 Ascorbic Acid (vitamin C) 1000 MG tablet 2 tablets aspirin 81 MG EC tablet Take 1 tablet by mouth in the morning. calcium carbonate 1500 (600 Ca) MG tablet Take 600 mg by mouth in the morning. cholecalciferol (Vitamin D-3) 1.25 MG (18579 UT) capsule Take one capsule daily 100 [...] every 12 (twelve) hours 200 tablet 3 Caldwell-3 Fatty Acids (Fish Oil) 1200 MG capsule delayed-release Fish Oil potassium chloride CR (Klor-Con M20) 20 MEQ ER tablet TAKE 4 TABLETS BY MOUTH EVERY DAY spironolactone (Aldactone) 25 MG tablet Take 25 [...] 50 mg by mouth in the morning. No current facility-administered medications on file prior to visit. I have reviewed and reconciled the history and medication list with the patient today. Allergies Allergen Reactions Chlorzoxazone Hives and Unknown Gabapentin Unknown Social History Tobacco Use Smoking status: Never Smokeless tobacco: Never Vaping Use Vaping status: Never Used Substance Use Topics Alcohol use: Never Comment: [...] Laterality Date * CT SCAN : SINUS 2012 mucoperiosteal thickeing maxillaty sinues CARDIOVERSION 11/2014 CARPAL TUNNEL RELEASE Bilateral right (2000), left (2002) COLONOSCOPY 2001, 2005, 2013 CT SCAN : HEAD WITH AND WITHOUT CONTRANST 2012 DILATION AND CURETTAGE 2006 EGD 03/30/2020 GASTRIC BYPASS 1998 HERNIA REPAIR 2000 LASIK 2000 eye OTHER SURGICAL HISTORY 1999 tummy tuck THYROIDECTOMY, PARTIAL TRIGGER FINGER RELEASE Bilateral VEIN LIGATION AND STRIPPING Right Visit Vitals BP 104/66 Pulse 64 Temp 98.4 F Resp 16 Ht 5' 4 Wt 241 lb SpO2 96% BMI 41.37 kg/m Smoking Status Never BSA 2.22 m Review of Systems Constitutional: Negative for chills, fatigue and fever. HENT: Positive for congestion, postnasal drip, sinus pressure, sinus pain, sore throat and voice change. Negative for ear pain. Respiratory: Positive for cough. Negative for shortness of breath and wheezing. Cardiovascular: Negative for chest pain, palpitations and leg swelling. Gastrointestinal: Negative for abdominal pain, constipation, diarrhea, nausea and vomiting. Objective Physical Exam Constitutional: General: She is not in acute distress. Appearance: She is well-developed. She is obese. HENT: Head: Normocephalic and atraumatic. Right Ear: There is impacted cerumen. Left Ear: Tympanic membrane and ear canal normal. Nose: Congestion and rhinorrhea present. Right Turbinates: Swollen. Left Turbinates: Swollen. Comments: Turbinates erythematous Mouth/Throat: Mouth: Mucous membranes are moist. Pharynx: Posterior oropharyngeal erythema (Minimal) present. Eyes: General: No scleral icterus. Conjunctiva/sclera: Conjunctivae normal. Cardiovascular: Rate and Rhythm: Rhythm irregularly irregular. Heart sounds: Normal heart sounds. No murmur heard. Pulmonary: Effort: Pulmonary effort is normal. No respiratory distress. Breath sounds: Normal breath sounds. No wheezing, rhonchi or rales. Comments: Occasional dry cough Lymphadenopathy: Cervical: No cervical adenopathy. Skin: General: Skin is warm and dry. Neurological: General: No focal deficit present. Mental Status: She is alert and oriented to person, place, and time. Psychiatric: Mood and Affect: Mood normal. Behavior: Behavior normal. Assessment/Plan Diagnoses and all orders for this visit: Acute URI - predniSONE (Deltasone) 10 MG tablet; Take 1 tablet (10 mg) by mouth in the morning and 1 tablet (10 mg) at noon. Do all this for 5 days. Take with breakfast and with lunch. - COMMON RESPIRATORY BACTERIAL/VIRAL INFECTION (HTRX); Future Start the above as directed. Reviewed potential s/e with patient. Take with food. No NSAIDs while on prednisone. Increase water intake, get plenty of rest. Can continue to take OTC allergy medication for symptomatic relief, restart Flonase for next week. Continue humidifier. Contact office if no improvement after one week of symptoms. Laryngitis - COMMON RESPIRATORY BACTERIAL/VIRAL INFECTION (HTRX); Future Advised most laryngitis is caused by a virus. Will r/o other cause with nasal swab today. Will notify pt of results once received. Longstanding persistent atrial fibrillation (CMS/HCC) The patient is seeing a medical communication specialist for this condition, treatment is deferred to that specialist. Correspondence from that specialist and any available testing were reviewed during today's visit. Did review the basics of the Watchman Procedure with pt, advised is only indicated in case of atrial appendage to prevent blood clot formation. Last ECHO from 2019 reviewed. Right ear impacted cerumen Encouraged Debrox drops OTC, canal does not appear erythematous or swollen. Follow up if symptoms worsen or fail to improve. documented in this encounter [facility] 01-02-2024 History of Present illness Narrative Images from the original note were not included. @ENCDATE@ Marla Espino Terell is a 68 y.o. female who presents for No chief complaint on file. HPI: History of Present Illness The patient is a 68-year-old right-hand dominant female here today for her right shoulder. She has received 3 cortisone injections previously on 10/18/2022, 02/14/2023, and 07/25/2023. She experiences pain in the lateral aspect of her shoulder, which occasionally radiates. She has attempted to manage the pain with stretching exercises and topical gel applications. She notes that her condition was more bothersome prior to her initial visit, but therapy has provided some relief. She is requesting another cortisone injection today. Also mentions pain along the medial aspect of the left elbow which radiates into the arm and forearm with intermittent numbness and tingling in the left hand. SUBJECTIVE: MEDICATIONS: Current Outpatient Medications Medication Instructions Ascorbic Acid (vitamin C) 1000 MG tablet 2 tablets aspirin 81 MG EC tablet 1 tablet, Oral, Daily calcium carbonate 600 mg, Oral, Daily RT cholecalciferol (Vitamin D-3) 1.25 MG (29273 UT) capsule Take one capsule daily Copper Gluconate 2 MG tablet 1 tablet, Oral, Daily RT famotidine (Pepcid) 20 MG tablet TAKE 1 TABLET BY MOUTH EVERY DAY AT BEDTIME NEEDED for 90 ferrous sulfate 325 (65 Fe) MG tablet TAKE 1 TABLET BY MOUTH 3 TIMES A WEEK (SATURDAY, SATURDAY,SATURDAY) fluticasone (Flonase) 50 MCG/ACT nasal spray 1 spray, Each Nostril, Daily, Shake gently. Before first use, prime pump. After use, clean tip and replace cap. loratadine (Claritin) 10 MG tablet Every 24 hours MAGNESIUM PO 250 mg, Oral, Daily RT metoprolol tartrate (LOPRESSOR) 25 mg, Oral, Every 12 hours Caldwell-3 Fatty Acids (Fish Oil) 1200 MG capsule delayed-release Fish Oil pantoprazole (PROTONIX) 40 mg, Oral, Daily potassium chloride CR (Klor-Con M20) 20 MEQ ER tablet TAKE 4 TABLETS BY MOUTH EVERY DAY spironolactone (ALDACTONE) 25 mg, Oral, 2 times daily torsemide (Demadex) 20 MG tablet TAKE 1 TABLET BY MOUTH EVERY DAY Turmeric 500 MG tablet 1 tablet, Oral, Daily RT warfarin (Coumadin) 5 MG tablet Every 24 hours zinc gluconate 50 mg, Oral, Daily RT ALLERGIES: Allergies Allergen Reactions Chlorzoxazone Hives and Unknown Gabapentin Unknown SURGICAL HISTORY: Past Surgical History: Procedure Laterality Date * CT SCAN : SINUS 2011 mucoperiosteal thickeing maxillaty sinues CARDIOVERSION 11/2014 CARPAL TUNNEL RELEASE Bilateral right (2000), left (2002) COLONOSCOPY 2001, 2005, 2013 CT SCAN : HEAD WITH AND WITHOUT CONTRANST 2011 DILATION AND CURETTAGE 2005 EGD 03/30/2020 GASTRIC BYPASS 1998 HERNIA REPAIR 2000 LASIK 2000 eye OTHER SURGICAL HISTORY 1999 tummy tuck THYROIDECTOMY, PARTIAL TRIGGER FINGER RELEASE Bilateral VEIN LIGATION AND STRIPPING Right FAMILY HISTORY: Family History Problem Relation Name Age of Onset Diabetes Mother Stroke Mother Heart disease Mother Heart failure Mother Diabetes Father Stroke Father Parkinsonism Father Multiple sclerosis Father Tongue cancer Brother Colon cancer Maternal Cousin Melanoma Neg Hx SOCIAL HISTORY: Social History Tobacco Use Smoking status: Never Smokeless tobacco: Never Vaping Use Vaping status: Never Used Substance Use Topics Alcohol use: Never Comment: caffeine: none Drug use: Never Depression: Not at risk (10/29/2023) PHQ-2 PHQ-2 Score: 0 REVIEW OF SYMPTOMS: Review of Systems The review of systems, history and current medications list are all reviewed today. OBJECTIVE: Visit Vitals Smoking Status Never Physical Exam Alert and oriented, no acute distress. Mood and affect are appropriate. Ambulating independently. Gait is nonantalgic. RIGHT SHOULDER The skin is warm, dry and intact. She can raise her arm overhead. She has maintained passive forward flexion, abduction, internal and external rotation. Mild weakness with supraspinatus stress and supraspinatus isolation test. No weakness with external rotation and resisted supination. Negative belly-press test. Negative bear-hug test. Negative Hornblower. Positive Whipple. Positive Keiat and Neer impingement. Positive Speed's. LEFT SHOULDER The skin is warm, dry, and intact. There is no swelling, atrophy, or deformity. Full forward elevation, abduction, internal and external rotation. No weakness with internal and external rotation, resisted supination, or forward flexion. Negative Tifton's. Negative Neer/Keita impingement. No tenderness over the AC joint. Negative cross-arm adduction. Negative Speed's and Yergason's. No instability. Ortho Exam Results MRI of the right shoulder performed at the [facility] on 10/09/2022; report and images are reviewed. There is a full thickness tear of the supraspinatus. The tendon is retracted lateral to the AC joint. There is mild atrophy to the supraspinatus. There is no atrophy to the remainder of the rotator cuff. There is tearing of the superior labrum. There is tendinosis of the long head of the biceps tendon. The tendon is appropriately positioned over the bicipital groove. Imaging 4 views right shoulder, Grashey/Zanca/outlet/axillary, taken today and saved to the permanent medical record are reviewed. ACI WNL. No arthritic changes at GH joint. Cystic change in greater tuberosity. Mild AC joint narrowing. Type 1 acromion. ASSESSMENT AND PLAN: I reviewed the history, physical exam, diagnostic studies, and diagnosis with the patient. Assessment & Plan 68-year-old right hand dominant female with rotator cuff tear, SLAP tear, biceps tendinosis right shoulder. A cortisone injection was administered today. A limited ultrasound examination of the right shoulder was performed. The patient's hand was placed in the lap in the supinated position. The biceps tendon, subscapularis, and pectoralis major were visualized at the anterior aspect of the shoulder. The acromioclavicular joint was then identified at the superior aspect of the shoulder. The patient's hand was then placed behind the back near the waist. The probe was moved to the lateral aspect of the shoulder and the supraspinatus and infraspinatus were visualized in the subacromial space. The anterolateral aspect of the shoulder was then prepped with alcohol and betadine. Using ultrasound guidance, a 25-gauge 1-1/2 inch needle was inserted into the subacromial space adjacent to the supraspinatus. A mixture of 2 mL of 1% plain lidocaine and 2 mL of betamethasone was then injected. The patient tolerated this well. A Band-Aid was applied. The patient was instructed to ice the shoulder and to watch for any signs of infection including redness, increased pain, drainage from the injection site, fever, chills, etc. The patient was instructed to call the office if he/she experiences any adverse reaction to the injection. 2. Suspected cubital tunnel syndrome, left elbow The patient reports numbness and tingling in her left hand, which sometimes radiates up and down the arm. She was advised to avoid resting her elbow on hard surfaces and to keep it straight during sleep. She was also instructed to use elbow pads to prevent bending the elbow during sleep. If symptoms persist, a nerve test through a neurologist will be considered. Follow up in 6 months. There are no diagnoses linked to this encounter. A total of 30 to 39 minutes was spent on this patient encounter which included chart review, check in, nurse triage, history taking, physical examination, diagnostic study review, patient counseling and discussion, entering information into the patient's medical record, and coordinating patient care. Lazaro Milian D.O. Attestation This note was created using voice recognition through [employer]. Associated Order(s): L Inj/Asp: R glenohumeral Post-Procedure Diagnose(s): Complete tear of right rotator cuff, unspecified whether traumatic L Inj/Asp: R glenohumeral on 01/02/2024 9:18 AM Indications: pain Details: 25 G needle, ultrasound-guided Medications: 2 mL betamethasone acetate-betamethasone sodium phosphate 6 (3-3) MG/ML Consent was given by the patient. documented in this encounter [facility] 11-28-2023 History of Present illness Narrative Subjective Marla Figueredo is a 68 y.o. female Chief Complaint Follow-up HPI Patient is in the office for follow-up for preventative fibrillation. Her heart rate remains under control and she is currently anticoagulated with Coumadin. She has morbid obesity with not much difference in her weight from last visit. She is going to the gym 3 days weekly. She had cellulitis involving the right lower extremity below the knee which is improving. She has no dyspnea orthopnea PND and no palpitations or chest pain. Assessment/recommendations: 1-permanent atrial fibrillation that is asymptomatic. Heart rate is controlled on metoprolol 25 mg twice daily and on chronic anticoagulation with Coumadin managed by the Coumadin clinic at [facility]. 2-essential hypertension under control on metoprolol. 3- history of severe lower extremity edema and cellulitis with recent flareup on the right side requiring therapy with improvement 4-morbid obesity status post bariatric surgery but remains in class II obesity, more aggressive weight loss was recommended 5-high risk medication with anticoagulation with no bleeding problems. 6-nuclear stress test in [place] several years ago was normal, no need to repeat. 7-sleep apnea intolerant to CPAP machine. More weight loss was recommended Review of Systems All other systems reviewed and are negative. Vitals: 11/28/23 0941 BP: 102/60 BP Location: Left arm Patient Position: Sitting Pulse: 66 Weight: 111 kg (244 lb) Height: 1.651 m (5' 5 ) [...] (65 Fe) MG tablet, Take 1 tablet (325 mg) by mouth 2 times a day., Disp: , Rfl: loratadine (Claritin) 10 mg tablet, Take 1 tablet (10 mg) by mouth once daily as needed for allergies., Disp: , Rfl: MAGNESIUM ORAL, Take 400 mg by mouth once daily., Disp: , Rfl: metoprolol tartrate (Lopressor) 25 mg tablet, Take 1 tablet (25 mg) by mouth 2 times a day., Disp: 180 tablet, Rfl: 3 multivitamin capsule, Take 1 capsule by mouth once daily., Disp: , Rfl: pantoprazole (ProtoNix) 40 mg EC tablet, Take 1 tablet (40 mg) by mouth once daily., Disp: , Rfl: potassium chloride CR 20 mEq ER tablet, Take 1 tablet (20 mEq) by mouth 4 times a day., Disp: 360 tablet, Rfl: 3 spironolactone (Aldactone) 25 mg tablet, TAKE 1 TABLET BY MOUTH DAILY, Disp: 90 tablet, Rfl: 3 torsemide (Demadex) 20 mg tablet, Take 1 tablet (20 mg) by mouth once daily., Disp: 90 tablet, Rfl: 3 turmeric root extract 500 mg tablet, Take 1 tablet by mouth once daily., Disp: , Rfl: warfarin (Coumadin) 2.5 mg tablet, Take by mouth. As directed by [place] [facility], Disp: , Rfl: zinc gluconate 50 mg tablet, Take 1 tablet (50 mg) by mouth once daily., Disp: , Rfl: Assessment/Plan 1. Permanent atrial fibrillation with RVR (Multi) Follow Up In Cardiology 2. Anticoagulated 3. Essential hypertension 4. Obstructive sleep apnea syndrome 5. Iron deficiency anemia, unspecified iron deficiency anemia type 6. Former smoker 7. BMI 39.0-39.9,adult Scribe Attestation By signing my name below, ICarlotta LPN, Scribe attest that this documentation has been prepared under the direction and in the presence of Mily Hackett MD. Provider Attestation - Scribe documentation All medical record entries made by the Scribe were at my direction and personally dictated by me. I have reviewed the chart and agree that the record accurately reflects my personal performance of the history, physical exam, discussion and plan. documented in this encounter [facility] Work Phone: 11-28-2023 Instructions Carlotta Ybarra LPN - 11/28/2023 9:30 AM EDT Please bring all medicines, vitamins, and herbal supplements with you when you come to the office. Prescriptions will not be filled unless you are compliant with your follow up appointments or have a follow up appointment scheduled as per instruction of your physician. Refills should be requested at the time of your visit. BMI was above normal measurement. Current weight: 111 kg (244 lb) Weight change since last visit (-) denotes wt loss 4 lbs Weight loss needed to achieve BMI 25: 94.1 Lbs Weight loss needed to achieve BMI 30: 64.1 Lbs Provided instructions on dietary changes. The following attachments cannot be sent through Care Everywhere.Mediterranean Diet (Nigerien)documented in this encounter [facility] Work Phone: 10-29-2023 History of Present illness Narrative Images from the original note were not included. Subjective : Chief Complaint: Marla Figueredo is an 68 y.o. female here for an annual wellness visit. I have reviewed and reconciled the history and medication list with the patient today. Current Outpatient Medications Medication Sig Dispense Refill Ascorbic Acid (vitamin C) 1000 MG tablet 2 tablets aspirin 81 MG EC tablet Take 1 tablet by mouth in the morning. calcium carbonate 1500 (600 Ca) MG tablet Take 600 mg by mouth in the morning. cholecalciferol (Vitamin D-3) 1.25 MG (19731 UT) capsule Take one capsule daily 100 [...] every 12 (twelve) hours 200 tablet 3 Caldwell-3 Fatty Acids (Fish Oil) 1200 MG capsule delayed-release Fish Oil pantoprazole (ProtoNix) 40 MG EC tablet Take 1 tablet (40 mg) by mouth in the morning. 100 tablet 3 potassium chloride CR (Klor-Con M20) 20 MEQ ER tablet TAKE 4 TABLETS BY MOUTH EVERY DAY spironolactone (Aldactone) 25 MG tablet Take 25 [...] 50 mg by mouth in the morning. No current facility-administered medications for this visit. Review of Systems Constitutional: Negative. HENT: Positive for ear pain. Eyes: Negative. Respiratory: Negative. Cardiovascular: Negative. Gastrointestinal: Negative. Genitourinary: Negative. Musculoskeletal: Positive for arthralgias, back pain and myalgias. Neurological: Negative. Psychiatric/Behavioral: Negative. 1. Bilateral carpal tunnel syndrome This is a chronic medical condition that is stable since last assessment. No changes in treatment are suggested at this time. 2. Lumbar radiculopathy This is a chronic medical condition that is stable since last assessment. No changes in treatment are suggested at this time. 3. Obstructive sleep apnea syndrome This is a chronic medical condition that is stable since last assessment. No changes in treatment are suggested at this time. 4. Right cervical radiculopathy This is a chronic medical condition that is stable since last assessment. No changes in treatment are suggested at this time. 5. Atrial fibrillation, unspecified type (CMS/HCC) This is a chronic medical condition that is stable since last assessment. No changes in treatment are suggested at this time. - CBC; Future - CBC 6. Chronic venous insufficiency This is a chronic medical condition that is stable since last assessment. No changes in treatment are suggested at this time. - CBC; Future - CBC 7. Primary hypertension (CMS/HCC) Patient's blood pressure is currently well controlled. Continue with current medications and I will continue to monitor. Goal BP remains less than 130/80. - CBC; Future - Comprehensive metabolic panel; Future - CBC - Comprehensive metabolic panel 8. Mitral valve prolapse This is a chronic medical condition that is stable since last assessment. No changes in treatment are suggested at this time. 9. Gastroesophageal reflux disease without esophagitis GERD discussed with the patient. Pt educated regarding avoiding high acid food triggers such as caffeine products, fruits high in acid, spicy foods, and tomato based products. Advsied to avoid all NSAIDS medications, i.e. Motrin, Aleve. Ok to use Tylenol prn. Encouraged pt to avoid laying down immediately after meals. 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 Edema of lower extremity This is a chronic medical condition that is stable since last assessment. No changes in treatment are suggested at this time. 12. Primary osteoarthritis of right knee This is a chronic medical condition that is stable since last assessment. No changes in treatment are suggested at this time. 13. Senile osteoporosis ([facility]) This is a chronic medical condition that is stable since last assessment. No changes in treatment are suggested at this time. 14. BMI 39.0-39.9,adult Discussed goal of BMI < 30. Advised on weight loss options. Encouraged diet and exercise. Discussed with patient appropriate lifestyle modification changes necessary for weight management, heart healthy eating and overall health promotion. Discussed minimizing high carb, high sugar, high sodium, portion control, and processed foods while making healthy choice replacements. Additionally discussed recommendations of 30 minutes of aerobic exercise at least 5 days per week, that includes, walking, and chair exercises. . Instructed importance of drinking adequate water consumption (if not on fluid restriction) with minimal sugar and caffiene. 15. Hyperparathyroidism ([facility]/HCC) Followed by endocrinology 16. Morbid obesity ([facility]) Discussed goal of BMI < 30. Advised on weight loss options. Encouraged diet and exercise. Discussed with patient appropriate lifestyle modification changes necessary for weight management, heart healthy eating and overall health promotion. Discussed minimizing high carb, high sugar, high sodium, portion control, and processed foods while making healthy choice replacements. Additionally discussed recommendations of 30 minutes of aerobic exercise at least 5 days per week, that includes, walking, and chair exercises. . Instructed importance of drinking adequate water consumption (if not on fluid restriction) with minimal sugar and caffiene. 17. Non-toxic multinodular goiter ([facility]) This is a chronic medical condition that is stable since last assessment. No changes in treatment are suggested at this time. - TSH; Future - TSH 18. Thyroid disease ([facility]) Followed by endocrinolgy 19. Vitamin B-complex deficiency This is a chronic medical condition that is stable since last assessment. No changes in treatment are suggested at this time. 20. Vitamin D deficiency Followed by endocrinology - Vitamin D 25 hydroxy; Future - Vitamin D 25 hydroxy 21. Anemia, unspecified type This is a chronic medical condition that is stable since last assessment. No changes in treatment are suggested at this time. Followed by hematology 22. Thrombocytopenia ([facility]) Followed by hematology 23. Fibrocystic breast changes, unspecified laterality Mammogram due in 01/2024 24. Hypercalcemia Followed by endocrinology - Comprehensive metabolic panel; Future - Comprehensive metabolic panel 25. Hypokalemia Await lab - Comprehensive metabolic panel; Future - Comprehensive metabolic panel 26. Chronic bilateral low back pain without sciatica This is a chronic medical condition that is stable since last assessment. No changes in treatment are suggested at this time. 27. Lymphedema This is a chronic medical condition that is stable since last assessment. No changes in treatment are suggested at this time. 28. Seasonal allergies This is a chronic medical condition that is stable since last assessment. No changes in treatment are suggested at this time. - CBC; Future - CBC 29. Sensorineural hearing loss (SNHL) of left ear with unrestricted hearing of right ear This is a chronic medical condition that is stable since last assessment. No changes in treatment are suggested at this time. 30. Body mass index (BMI) 40.0-44.9, adult ([facility]) Discussed goal of BMI < 30. Advised on weight loss options. Encouraged diet and exercise. Discussed with patient appropriate lifestyle modification changes necessary for weight management, heart healthy eating and overall health promotion. Discussed minimizing high carb, high sugar, high sodium, portion control, and processed foods while making healthy choice replacements. Additionally discussed recommendations of 30 minutes of aerobic exercise at least 5 days per week, that includes, walking, and chair exercises. . Instructed importance of drinking adequate water consumption (if not on fluid restriction) with minimal sugar and caffiene. 31. Other thrombophilia ([facility]) Followed by hematology 32. Secondary hyperparathyroidism of renal origin ([facility]) Followed by endocrinology 33. Primary hyperparathyroidism ([facility]) Followed by endocrinology - Comprehensive metabolic panel; Future - Comprehensive metabolic panel 34. Secondary hyperparathyroidism, not elsewhere classified ([facility]) Followed by endocrinology 35. Medicare annual wellness visit, subsequent Reviewed all relevant preventative screenings with the patient in detail. Medicare Wellness form completed and will be scanned into patient's chart. All needed testing was ordered. Will continue with yearly Medicare Wellness exams. - TSH; Future - CBC; Future - Comprehensive metabolic panel; Future - TSH - CBC - Comprehensive metabolic panel 36. Routine general medical examination at [facility] care facility Reviewed all relevant preventative screenings with the patient in detail. Medicare Wellness form completed and will be scanned into patient's chart. All needed testing was ordered. Will continue with yearly Medicare Wellness exams. 37. Hypomagnesemia Await lab - Magnesium; Future - Magnesium 38. Disorder of left eustachian tube Take steroid as ordered, if no improvement, come back to the office. Do not take with ibuprofen or aleve. Take with food. Monitor stools for any signs of bleeding. - methylPREDNISolone (Medrol Dospak) 4 MG tablets; Follow schedule on package instructions Dispense: 21 tablet; Refill: 0 List of current healthcare providers: Patient Care Team: Noel Farnsworth MD as PCP - General (Internal Medicine) Medicare Annual Visit Over the past 2 weeks, how often have you been bothered by any of the following problems? Little interest or pleasure in doing things: Not at all Feeling down, depressed, or hopeless: Not at all Patient Health Questionnaire-2 Score: 0 Over the past 2 weeks, how often have you been bothered by any of the following problems? Trouble falling or staying asleep, or sleeping too much: Not at all Feeling tired or having little energy: Not at all Poor appetite or overeating: Not at all Feeling bad about yourself - or that you are a failure or have let yourself or your family down: Not at all Trouble concentrating on things, such as reading the newspaper or watching television: Not at all Moving or speaking so slowly that other people could have noticed? Or the opposite - being so fidgety or restless that you have been moving around a lot more than usual.: Not at all Thoughts that you would be better off or hurting yourself in some way: Not at all Patient Health Questionnaire-9 Score: 0 Hen[place] Fall Risk History of Falling, Immediate or Within 3 Months: No Health Risk Assessment Form Do you need help eating, bathing, using the toilet, dressing, or getting around your home?: No Can you prepare your own meals?: Yes Can you do your own housework without help?: Yes Can you shop for groceries or clothes without help?: Yes Do you exercise for about 20 minutes 3 or more days a week?: Yes How confident are you that you can control and manage most of your health problems?: Very confident Can you mange your money, credit cards and accounts, pay bills and taxes?: Yes Cognitive Screening Three Word Registration: Juventino, Lana, Finger Clock Drawing: Normal Clock - 2 Three Word Recall: All 3 words correct - 3 Total Score (0-5 Points): 5 Pain Assessment Pain Score: 0 - No pain Advance Care Planning Do you have a living will?: No Do you have a medical power of litigation attorney?: No Objective : BP 120/75 Pulse 50 Resp 16 Wt 244 lb 3.2 oz SpO2 98% BMI 41.92 kg/m No results found. Physical Exam Vitals reviewed. Constitutional: Appearance: Normal appearance. HENT: Head: Normocephalic. Right Ear: Tympanic membrane normal. Left Ear: Tympanic membrane normal. Nose: Nose normal. Mouth/Throat: Mouth: Mucous membranes are moist. Pharynx: Oropharynx is clear. Eyes: Conjunctiva/sclera: Conjunctivae normal. Cardiovascular: Rate and Rhythm: Normal rate and regular rhythm. Pulses: Normal pulses. Heart sounds: Normal heart sounds. Pulmonary: Effort: Pulmonary effort is normal. Breath sounds: Normal breath sounds. Abdominal: General: Bowel sounds are normal. Palpations: Abdomen is soft. Musculoskeletal: Cervical back: Neck supple. Right lower leg: Edema present. Left lower leg: Edema present. Skin: General: Skin is warm and dry. Neurological: General: No focal deficit present. Mental Status: She is alert and oriented to person, place, and time. Psychiatric: Mood and Affect: Mood normal. Behavior: Behavior normal. Assessment/Plan : The following health maintenance schedule was reviewed with the patient and provided in printed form in the after visit summary: Health Maintenance Topic Date Due Pneumococcal Vaccine: 65+ Years (1 of 2 - PCV) Never done Influenza Vaccine (1) 11/10/2023 Medicare Annual Wellness (AWV) 02/16/2024 Mammogram 02/21/2024 Colorectal Cancer Screening 03/30/2030 Advance Care Planning Is not interested in living will or durable power of litigation attorney. No orders of the defined types were placed in this encounter. Electronically signed by Denisha Gracia NP on October 29, 2023 documented in this encounter [facility] 05-13-2023 History of Present illness Narrative Subjective [...] Coumadin managed by the Coumadin clinic at [facility]. 2-essential hypertension under control on metoprolol. 3- history of severe lower extremity edema and Neurontin event resolved on medical therapy. We will continue triple diuretics and follow renal function closely.. 4-morbid obesity status post bariatric surgery but remains in class II obesity, more aggressive weight loss was recommended 5-high risk medication with anticoagulation with no bleeding problems. 6-nuclear stress test in [place] several years ago was normal, no need [...] tablet, Take by mouth. As directed by [place] [facility], Disp: , Rfl: zinc gluconate [...] the direction and in the presence of Mily Hackett MD. Provider Attestation - Scribe documentation All medical record entries made by the Scribe were at my direction and personally dictated by me. I have reviewed the chart and agree that the record accurately reflects my personal performance of the history, physical exam, discussion and plan. documented in this encounter [facility] Work Phone: 05-13-2023 Instructions Dianne Gerardo LPN - 05/13/2023 2:00 PM EST [...] on dietary changes. documented in this encounter [facility] Work Phone: 04-17-2023 History of Present illness Narrative Subjective Patient ID: Marla Figueredo [...] the morning. cholecalciferol (Vitamin D-3) 1.25 MG (37570 UT) capsule Take one capsule daily 100 [...] 500 mg by mouth in the morning. Caldwell-3 Fatty Acids (Fish Oil) 1200 MG capsule [...] Laterality Date * CT SCAN : SINUS 2012 mucoperiosteal thickeing maxillaty sinues CARDIOVERSION 11/2014 CARPAL TUNNEL RELEASE Bilateral right (2000), left (2002) COLONOSCOPY 2001, 2005, 2013 CT SCAN : HEAD WITH AND WITHOUT CONTRANST 2012 DILATION AND CURETTAGE 2005 EGD 03/30/2020 GASTRIC BYPASS 1998 HERNIA REPAIR 2000 LASIK 2000 eye OTHER SURGICAL HISTORY 1999 tummy tuck [...] fail to improve. documented in this encounter [facility] 11-10-2021 Note PROCEDURE: CT CSPINE WO CON [...] authenticated by: HARPREET QUINTERO Date: 2021-11-10 14:37 [facility] 09-15-2021 Note PROCEDURE: XR FOOT L T [...] 2021-09-15 16:00 [facility] Evaluation note No assessment inform ation available [facility] Work Phone: Evaluation note Diagnosis Acute non-recurrent sinusitis, unspecified location [facility] Diagnosis Permanent atrial fibrillation with RVR (CMS/HCC)- Primary Essential hypertension Unspecified essential hypertension Hypokalemia Hypopotassemia BMI 39.0-39.9,adult Former smoker Personal history of tobacco use, presenting hazards to health Obstructive sleep apnea Obstructive sleep apnea (adult) (pediatric) High risk medication use documented in this encounter [facility] Work Phone: Evaluation note* Diagnosis Complete tear of right rotator cuff, unspecified whether traumatic- Primary documented [facility] encounter [facility] Diagnosis Acute URI- Primary Acute upper respiratory infections of unspecified site Laryngitis Acute laryngitis, without mention of obstruction Longstanding persistent atrial fibrillation (CMS/HCC) Right ear impacted cerumen Impacted cerumen documented [facility] Diagnosis Permanent atrial fibrillation with RVR (Multi)- Primary Anticoagulated Encounter for long-term (current) use of anticoagulants Essential hypertension Unspecified essential hypertension Obstructive sleep apnea syndrome Obstructive sleep apnea (adult) (pediatric) Iron deficiency anemia, unspecified iron deficiency anemia type Former smoker Personal history of tobacco use, presenting hazards to health BMI 39.0-39.9,adult Cellulitis of right lower extremity High risk medication use documented in this encounter [facility] Work Phone: Evaluation note* Diagnosis Medicare annual wellness visit, subsequent- Primary Bilateral carpal tunnel syndrome Carpal tunnel syndrome Lumbar radiculopathy Thoracic or lumbosacral neuritis or radiculitis, unspecified Obstructive sleep apnea syndrome Obstructive sleep apnea (adult) (pediatric) Right cervical radiculopathy Atrial fibrillation, unspecified type (CMS/HCC) Chronic venous insufficiency Unspecified venous (peripheral) insufficiency Primary hypertension (CMS/HCC) Unspecified essential hypertension Mitral valve prolapse Mitral valve disorders Gastroesophageal reflux disease without esophagitis Esophageal reflux Intestinal disaccharidase deficiencies and disaccharide malabsorption Edema of lower extremity Primary osteoarthritis of right knee Senile osteoporosis (CMS/HCC) Senile osteoporosis BMI 39.0-39.9,adult Hyperparathyroidism (CMS/HCC) Hyperparathyroidism, unspecified Morbid obesity (CMS/HCC) Morbid obesity Non-toxic multinodular goiter (CMS/HCC) Nontoxic multinodular goiter Thyroid disease (CMS/HCC) Unspecified disorder of thyroid Vitamin B-complex deficiency Unspecified vitamin B deficiency Vitamin D deficiency Anemia, unspecified type Thrombocytopenia (CMS/HCC) Unspecified thrombocytopenia Fibrocystic breast changes, unspecified laterality Hypercalcemia Hypokalemia Hypopotassemia Chronic bilateral low back pain without sciatica Lymphedema Other noninfectious lymphedema Seasonal allergies Allergic rhinitis, cause unspecified Sensorineural hearing loss (SNHL) of left ear with unrestricted hearing of right ear Body mass index (BMI) 40.0-44.9, adult (CMS/HCC) Other thrombophilia (CMS/HCC) Secondary hyperparathyroidism of renal origin (CMS/HCC) Secondary hyperparathyroidism (of renal origin) Primary hyperparathyroidism (CMS/HCC) Primary hyperparathyroidism Secondary hyperparathyroidism, not elsewhere classified (CMS/HCC) Routine general medical examination at health care facility Routine general medical examination at a health care facility Hypomagnesemia Disorders of magnesium metabolism Disorder of left eustachian tube documented in this encounter [facility]* Diagnosis Acute non-recurrent sinusitis, unspecified location- Primary Acute cystitis without hematuria Anemia, unspecified type documented in this encounter [facility]* Diagnosis Acute non-recurrent sinusitis, unspecified location- Primary Acute cystitis without hematuria Anemia, unspecified type documented in this encounter [facility]Evaluation note* Diagnosis Vaginal atrophy Postmenopausal atrophic vaginitis Encounter for mammogram to establish baseline mammogram Other screening mammogram documented in this encounter [facility]* Diagnosis Acute non-recurrent sinusitis, unspecified location- Primary Edema of lower extremity Bariatric surgery status Unspecified atrial fibrillation ([facility]) Morbid (severe) obesity due to excess calories ([facility]) Body mass index (BMI) 40.0-44.9, adult ([facility]) documented in this encounter [facility]* Diagnosis Cellulitis, unspecified cellulitis site- Primary documented in this encounter [facility]* Diagnosis Hyperparathyroidism- Primary Hyperparathyroidism, unspecified Age-related osteoporosis without current pathological fracture Vitamin D deficiency- Primary Subclinical hypothyroidism Other specified acquired hypothyroidism Primary hyperparathyroidism Age-related osteoporosis without current pathological fracture Subclinical hypothyroidism- Primary Other specified acquired hypothyroidism Vitamin D deficiency Age-related osteoporosis without current pathological fracture [facility] Diagnosis Complete tear of right rotator cuff, unspecified whether traumatic- Primary documented in this encounter [facility]* Diagnosis Medicare annual wellness visit, subsequent- Primary ACP (advance care planning) Other specified counseling Elevated AST (SGOT) Other problems related to lifestyle Primary hypertension ([facility]) Unspecified essential hypertension Neck pain Cervicalgia Bilateral carpal tunnel syndrome Carpal tunnel syndrome Lumbar radiculopathy Thoracic or lumbosacral neuritis or radiculitis, unspecified Obstructive sleep apnea syndrome Obstructive sleep apnea (adult) (pediatric) Right cervical radiculopathy Mild intermittent asthmatic bronchitis without complication ([facility]) Longstanding persistent atrial fibrillation ([facility]) Chronic venous insufficiency Unspecified venous (peripheral) insufficiency Mitral valve prolapse Mitral valve disorders Abnormal intestinal absorption ([facility]) Unspecified intestinal malabsorption Gastroesophageal reflux disease without esophagitis Esophageal reflux Intestinal disaccharidase deficiencies and disaccharide malabsorption Atrophy of vagina Postmenopausal atrophic vaginitis Urge incontinence of urine Urge incontinence Acquired pes planus of left foot Acquired trigger finger Trigger finger (acquired) Cervical paraspinal muscle spasm Spasm of muscle Cochlear hydrops of right ear Cramp of limb Disorder of bone and cartilage Disorder of bone and cartilage, unspecified Edema of both legs Edema Internal derangement of left shoulder Left Achilles tendinitis Monoarticular arthritis Unspecified monoarthritis, site unspecified Pes planus of both feet Plantar fasciitis, bilateral Primary osteoarthritis of right knee Right anterior shoulder pain Senile osteoporosis (CMS/HCC) Senile osteoporosis Hyperparathyroidism ([facility]) Hyperparathyroidism, unspecified Morbid obesity (CMS/HCC) Morbid obesity Non-toxic multinodular goiter ([facility]) Nontoxic multinodular goiter BMI 40.0-44.9, adult ([facility]) Subclinical hypothyroidism (CMS/HCC) Other specified acquired hypothyroidism Vitamin B-complex deficiency Unspecified vitamin B deficiency Vitamin D deficiency Other iron deficiency anemia Thrombocytopenia ([facility]) Unspecified thrombocytopenia Other chronic sinusitis Anticoagulated Encounter for long-term (current) use of anticoagulants Elevated levels of transaminase & lactic acid dehydrogenase Nonspecific elevation of levels of transaminase or lactic acid dehydrogenase (LDH) Other fatigue Fibrocystic breast changes, unspecified laterality Former smoker Personal history of tobacco use, presenting hazards to health H/O thyroidectomy Height loss Loss of height High risk medication use History of gastric bypass Hypercalcemia Hypokalemia Hypopotassemia Left-sided tinnitus Unspecified tinnitus LPRD (laryngopharyngeal reflux disease) Acute laryngitis, without mention of obstruction Chronic bilateral low back pain without sciatica Lymphedema Other noninfectious lymphedema Piriformis syndrome, unspecified laterality Seasonal allergies Allergic rhinitis, cause unspecified Sensorineural hearing loss (SNHL) of left ear with unrestricted hearing of right ear documented in this encounter [facility]Evaluation note* Diagnosis Acute frontal sinusitis, recurrence not specified- Primary PND (post-nasal drip) Postnasal drip documented in this encounter [facility] HealthcareInstructionsNot on filedocumented in this encounterPrem[facility] CenterReason for referral (narrative)* Consultation (Routine) - Authorized Specialty Diagnoses / Procedures Referred By Contac t Referred To Contact Cardiology Diagnoses Permanent atrial fibrillation with RVR ([facility]) Procedures Follow Up In Cardiology Mily Hackett MD [address] [place] [address] [address], [address] [address] Mily Hackett MD [address] [place] [address] 2, [address] [address] Referral ID Status Reason Start Date Expiration Date V isits Requested Visits Authorized [id number] Authorized 05/13/2023 05/12/2024 1 1 [facility] Work Phone: Reason for referral (narrative)* Consultation (Routine) - Authorized Specialty Diagnoses / Procedures Referred By Contac t Referred To Contact Cardiology Diagnoses Permanent atrial fibrillation with RVR (Multi) Procedures Follow Up In Cardiology Mily Hackett MD [address] [facility] [address] [place] [address] Mily Hackett MD [address] [facility] [address] [place] [address] Referral ID Status Reason Start Date Expiration Date V isits Requested Visits Authorized [id number] Authorized 11/28/2023 11/27/2024 1 1 [facility] Work Phone: Summary Purpose Family History [...] of throat can cer: Brother(V16.0, Z80.0) Status:Active Relationship Condition Age at Onset Recorded Date/T vadim father History of stroke Unknown Unknown Diabetes mellitus Unknown mother Diabetes mellitus Unknown History of stroke Unknown Advance Directives No Advanced Directives Records Found [...] Coumadin managed by the Coumadin clinic at [facility]. We agreed to pursue rate [...] problems. * 6 nuclear stress test in [place] several years ago was normal, no need to repeat. * 7 sleep apnea intolerant to CPAP machine. * MARLA FIGUEREDO is being seen for a 6 month follow-up of. * Patient is in the office for follow-up for the problems noted below. She continues to have chronic atrial fibrillation managed with rate control and [facility] She does have chronic lower [...] Coumadin managed by the Coumadin clinic at [facility]. We agreed to pursue rate [...] problems. * 6 nuclear stress test in [place] several years ago was normal, no need [...] fibrillation managed by the Coumadin clinic at [facility]. Her weight is couple pounds [...] Coumadin managed by the Coumadin clinic at [facility]. * 2 essential hypertension under [...] problems. * 6 nuclear stress test in [place] several years ago was normal, no need [...] fibrillation managed by the Coumadin clinic at [facility]. Her weight is couple pounds [...] Coumadin managed by the Coumadin clinic at [facility]. * 2 essential hypertension under [...] Complaint Screening Chief Complaint Screening e28.39 e28.39 Chief Complaint Admit Date Screening March 19, 2024 1: 14pm Additional Source Comments INFORMATION SOURCE (unrecogn ized section and content) DATE CREATED AUTHOR 07/29/2018 [facility] DATE CREATED AUTHOR AUTHOR'S ORGANIZ ATION 08/17/2022 [facility] DATE CREATED AUTHOR AUTHOR'S ORGANIZ ATION 10/24/2022 [employer] DATE CREATED AUTHOR AUTHOR'S ORGANIZ ATION 12/23/2022 [facility] DATE CREATED AUTHOR AUTHOR'S ORGANIZ ATION 06/19/2023 [facility] DATE CREATED AUTHOR AUTHOR'S ORGANIZ ATION 04/04/2024 [facility] DATE CREATED AUTHOR AUTHOR'S ORGANIZ ATION 05/31/2024 [facility] DATE CREATED AUTHOR AUTHOR'S ORGANIZ ATION 06/24/2024 [facility] DATE CREATED AUTHOR AUTHOR'S ORGANIZ ATION 07/08/2024 [facility] DATE CREATED AUTHOR AUTHOR'S ORGANIZ ATION 07/20/2024 [facility] Care Teams (unrecognized sec tion and content) Team Status: Inactive Member Role Status Dates Noel Farnsworth II MD Primary Care Provider Active Sherlyn Rucker DO Referring Provider Active GLEN Rivera Attending Provider Active Team Status: Active Member Role Status Dates Noel Farnsworth II MD Primary Care Provider Active Marla Knight PA-C Attending Provider Active Team Status: Active Member Role Status Dates Noel Farnsworth II MD Primary Care Provider Active Team Status: Inactive Member Role Status Dates Noel Farnsworth II MD Primary Care Provider Active Marla Knight PA-C Attending Provider Active Team Status: Inactive Member Role Status Dates Noel Farnsworth II MD Primary Care Provider Active Referral Self Attending Provider Active Team Status: Inactive Member Role Status Dates Noel Farnsworht II MD Primary Care Provider, Attending Provider Active Resistance Welder Relationship Specialty Start Date End Date Noel Farnsworth MD [address] [place] [address] PCP - General Internal Medicine 08/14/22 Resistance Welder Relationship Specialty Start Date End Date Noel Farnsworth MD [address] [place] [address] PCP - General Internal Medicine 08/14/22 Resistance Welder Relationship Specialty Start Date End Date Noel Farnsworth MD [address] [place] [address] PCP - General 10/19/22 Resistance Welder Relationship Specialty Start Date End Date Noel Farnsworth MD [address] [place] [address] PCP - General Internal Medicine 08/14/22 Resistance Welder Relationship Specialty Start Date End Date Noel Farnsworth MD [address] [place] [address] PCP - General Internal Medicine 08/14/22 Resistance Welder Relationship Specialty Start Date End Date Noel Farnsworth MD [address] [place] [address] PCP - General Internal Medicine 08/14/22 Resistance Welder Relationship Specialty Start Date End Date Noel Farnsworth MD [address] [place] [address] PCP - General Internal Medicine 08/14/22 Resistance Welder Relationship Specialty Start Date End Date Noel Farnsworth MD [address] [place] [address] PCP - General 10/19/22 Resistance Welder Relationship Specialty Start Date End Date Noel Farnsworth MD [address] [place] [address] PCP - General Internal Medicine 08/14/22 Resistance Welder Relationship Specialty Start Date End Date Noel Farnsworth MD [address] [place] [address] PCP - General Internal Medicine 08/14/22 Resistance Welder Relationship Specialty Start Date End Date Noel Farnsworth MD [address] [place] [address] PCP - General Internal Medicine 08/14/22 Resistance Welder Relationship Specialty Start Date End Date Noel Farnsworth MD [address] [place] [address] PCP - General Internal Medicine 08/14/22 Team Status: Inactive Member Role Status Dates Noel Farnsworth II MD Primary Care Provider Active Start: March 19, 2024 End: March 19, 2024 Sherlyn Rucker DO Attending Provider Active S tart: March 19, 2024 End: March 19, 2024 Resistance Welder Relationship Specialty Start Date End Date Noel Farnsworth MD [address] [place] [address] PCP - General Internal Medicine 08/14/22 Resistance Welder Relationship Specialty Start Date End Date Noel Farnsworth MD [address] [place] [address] PCP - General Internal Medicine 08/14/22 Resistance Welder Relationship Specialty Start Date End Date Noel Farnsworth MD [address] [place] [address] PCP - General Internal Medicine 08/14/22 Resistance Welder Relationship Specialty Start Date End Date Noel Farnsworth MD [address] [place] [address] PCP - General Internal Medicine 08/14/22 Resistance Welder Relationship Specialty Start Date End Date Noel Farnsworth MD [address], [address] [place] [address] PCP - General Internal Medicine 06/13/22 Resistance Welder Relationship Specialty Start Date End Date Noel Farnsworth MD [address] [place] [address] PCP - General Internal Medicine 08/14/22 Resistance Welder Relationship Specialty Start Date End Date Noel Farnsworth MD [address] [place] [address] PCP - General Internal Medicine 08/14/22 Resistance Welder Relationship Specialty Start Date End Date Noel Farnsworth MD [address] [place] [address] PCP - General Internal Medicine 08/14/22 Resistance Welder Relationship Specialty Start Date End Date Noel Farnsworth MD [address] [place] [address] PCP - General Internal Medicine 08/14/22 Goals (unrecognized section and content) Goals may be documented in a n alternate sectionGoals may be documented in an alternate sectionGoals may be documented in an alternate sectionGoals may be documented in an alternate sectionGoals may be documented in an alternate sectionGoals may be documented in an alternate sectionNot on filedocumented as of this encounter Reason for Visit (unrecogniz ed section and content) Reason Comments Sinusitis Reason Comments Follow-up 6m Reason Comments Follow-up Reason Comments Follow-up 6 months Specialty Diagnoses / Procedures Referred By Kyle t Referred To Contact Cardiology Diagnoses Permanent atrial fibrillation with RVR (Multi) Procedures Follow Up In Cardiology Mily Hackett MD [address] [facility] [address], [address] [address] Mily Hackett MD [address] [facility] [address], [address] [address] Referral ID Status Reason Start Date Expiration Date V isits Requested Visits Authorized [id number] Authorized 05/13/2023 05/12/2024 1 1 Reason Comments Sinusitis Results LABS--SPECIFICALLY T HE CBC RESULTS UTI Reason Comments Follow-up Sinusitis/uti-treate d with abx Results labs Anemia Reason Comments Gynecologic Exam Pt states notice sin ce last year notice a little more bladder leakage. Pt States she was told by a friend to do Kegel exercise. Denies vaginal bleeding/spotting. Denies breast concerns. Pt is scheduled tomorrow for mammogram. Reason Comments Leg Swelling Reason Comments Thyroid Problem Reason Comments Medicare Annual Wellness Visit Subsequen t Back Pain Cervical pain, she w as making easter bread so was not sure if her rolling the bread caused the pain, The pain has improved but still is having pain in bilateral sides of neck and does cause her to have some headaches. She has been using ice, heat, massage, tylenol. She is ?ing if maybe a few sessions of PT would help. Sinusitis Sinus pressure - she is on Augmentin and has been on it for 12 days, she is not sure if maybe her neck could still be affecting her sinsues. FOR RECORDS PERTAINING TO PATIENTS WHO ARE [...] BE BASED ON THE PRIMARY CLINICAL RECORDS. [employer] [facility]. provides no warranty or guarantee of the accuracy or completeness of information in this document.
[2024-07-23 10:45] LABS: Chol HDL Ratio 2.6; Cholesterol 157 mg/dL (<=200); HDL Cholesterol 60 mg/dL (40-60); LDL Cholesterol Calculated 68.4 mg/dL; Triglycerides 143 mg/dL (<=150); VLDL CHOLESTEROL 28.6 mg/dL
[2024-07-24 08:09] LABS: HCV Ab Non Reactive (Non Reactive)
== END 2024-07-23 07:38 | disposition home or self-care (01) ==
LOC: LAB 07:39
PROVIDERS: PCP Internal Medicine; Visit Provider Physician Assistant
DX: Z00.00 Encounter for general adult medical examination without abnormal findings (principal); Z72.89 Other problems related to lifestyle; R74.01 Elevation of levels of liver transaminase levels; I10 Essential (primary) hypertension; Z51.81 Encounter for therapeutic drug level monitoring; Z79.01 Long term (current) use of anticoagulants; I48.20 Chronic atrial fibrillation, unspecified
CPT/HCPCS: 36415; 80061; 86803; G0463

== ENCOUNTER 2024-08-08 02:43 | Emergency (ER) | payer MEDICARE, SELFPAY ==
--- OUTSIDE RECORDS SUMMARY | 2024-01-30 06:00 | XMS_ITS | Continuity of Care Document ---
Author [facility] Address [address] [place] [address] [place] [address] Phone Care Team Providers Care Ski Tow Operator Name Role Phone Dallas Trevino MD Unavailable Unavailable Procedures Procedure Date OFFICE/OUTPATIENT VISIT, EST OFFICE/OUTPATIENT VISIT, EST OFFICE/OUTPATIENT VISIT, EST OFFICE/OUTPATIENT VISIT, EST OFFICE/OUTPATIENT VISIT, EST OFFICE/OUTPATIENT VISIT, EST OFFICE/OUTPATIENT VISIT, EST OFFICE/OUTPATIENT VISIT, NEW Advance Directives Directive Yes / No Effective Date File Name No Information Encounters Encounter Description Practice Location Reason(s) For Visit Diagnoses Date Provider Providers Copied on Encounter OFFICE/OUTPATI ENT VISIT, [facility], [address] [place] [address], [id number], [place] tel:[phone] [facility] No Information Belinda Haynes. [address] [place] [address], [id number], [place]. tel:[phone] Referring Provider: Dallas Pimentel, [address] [place] [address], [place], [address]. tel:[phone] OFFICE/OUTPATI ENT VISIT, [facility], [address] [place] [address] [place], [id number], tel:[phone] [facility] No Information Belinda Haynes. [address] [place] [address] [address], [place], [place], [id number], [place]. tel:[phone] Referring Provider: Dallas Pimentel, [address] [place] [address] [address], [place], [address]. tel:[phone] OFFICE/OUTPATI ENT VISIT, [facility], [address] [place] [address] [address], [place], [place], [id number], [place] tel:[phone] [facility] No Information Yue Topete. [address] [place] [address] [address], [place], [place], [id number], [place]. tel:[phone] Referring Provider: Yoselyn Turner, [address] [place] [address] [address], [place], [address]. tel:[phone] OFFICE/OUTPATI ENT VISIT, [facility], [address] [place] [address] [address], [place], [place], [id number], [place] tel:[phone] [facility] No Information Yue Topete. [address] [place] [address] [address], [place], [place], [id number], [place]. tel:[phone] Referring Provider: Yoselyn Turner, [address] [place] [address] [address], [place], [address]. tel:[phone] OFFICE/OUTPATI ENT VISIT, [facility], [address] [place] [address] [address], [place], [place], [id number], [place] tel:[phone] [facility] No Information Belinda Haynes. [address] [place] [address] [address], [place], [place], [id number], [place]. tel:[phone] Referring Provider: Dallas Pimentel, [address] [facility] [address], [place], [address]. tel:[phone] OFFICE/OUTPATI ENT VISIT, [facility], [address] [place] [address] [address], [place], [place], [id number], [place] tel:[phone] [facility] No Information Belinda Haynes. [address] [place] [address] [address] [facility], [place], [place], [id number], [place]. tel:[phone] Referring Provider: Dallas Pimentel, [address] [place] [address], [place], [address]. tel:[phone] OFFICE/OUTPATI ENT VISIT, [facility], [address] [place] [address] [address], [place], [place], [id number], tel:[phone] [facility] No Information Belinda Haynes. [address] [place] [address], [place], [place], [id number], [place]. tel:[phone] OFFICE/OUTPATI ENT VISIT, [facility], [address] [place] [address] [address], [place], [place], [id number], tel:[phone] [facility] No Information Belinda Haynes. [address] [place] [address], [id number], [place]. tel:[phone] Referring Provider: Dallas Pimentel, [address] [place] [address], [place], [address]. tel:[phone] Family History Family Member Type Diagnosis Age At Onset No Information Payers Payer name Insurance type Covered constitution party ID Authorskipa luzlois(s) [employer] Medicare Complete [id number] Social History Type Description Quantity Date Captured Comments Sex Female Smoking Status No Information Chief Complaint And Reason For Visit No Information Reason For Referral Reason For Referral No Information Plan Of Treatment Date Type Action Status Appointment Marla Figueredo [place] History Of Present Illness Encounter Date Complaint History Of Prese nt Illness No Information Functional Status Date Functional Assessmen t No Information Instructions Date Instruction Additional Infor mation No Information Assessments Type Assessment Date No Information Patient Care Teams Name Effective Dates (start - stop) Status Members No Information
--- OUTSIDE RECORDS SUMMARY | 2024-08-07 12:30 | XMS_ITS | Encounter Summary ---
Author Organization [facility] Address [address] [place] [address] Care Team Providers Care Manager Performance Name Role Phone Noel Farnsworth MD Primary Care Provider [phone] Reason for Visit * Reason Comments Sinusitis UTI Encounter Details Date Type Department Care Team (Late st Contact Info) Description 08/07/2024 12:30 PM EDT Office Visit [facility] [address] [facility] [address] [place] [id number] Marla Strickland PA [address] [place] [facility] [address] [place] [address] Dysuria (Primary Dx); Acute cystitis with hematuria; Seasonal allergies; Cyst of soft tissue Social History Tobacco Use Types Packs/Day Years Used Date Smoking Tobacco: Never Smokeless Tobacco: Never Alcohol Use Standard Drinks/Week Comments Never 0 (1 standard drink = 0.6 oz pur e alcohol) caffeine: none PHQ-2 Answer Date Recorded Patient Health Questionnaire-2 Score 0 07/07/2024 Comments Unknown Sex and Gender Information Value Date Recorded Sex Assigned at Not on file Legal Sex Female 6:52 PM EDT Gender Identity Not on file Sexual Orientation Not on file documented as of this encounter Last Filed Vital Signs Vital Sign Reading Time Taken Comments Blood Pressure 118/78 08/07/2024 12:39 PM EDT Pulse 63 08/07/2024 12:39 PM EDT Temperature 36.4 C (97.5 F) 08/07/2024 12:39 PM EDT Respiratory Rate - - Oxygen Saturation 97% 08/07/2024 12:39 PM EDT Inhaled Oxygen Concentration - - Weight 109 kg (241 lb) 08/07/2024 12:39 PM EDT Height 162.6 cm (5' 4 ) 08/07/2024 12:39 PM EDT Body Mass Index 41.37 08/07/2024 12:39 PM EDT documented in this encounter Progress Notes * Marla StricklandKATIE - 08/07/2024 12:30 PM EDT Images from the original note were not included. Subjective Patient ID: Marla Figueredo is a 68 y.o. female who presents for Sinusitis and UTI. Pt states the cyst or bump on her left wrist just appeared, would like looked at UTI started last week with burning , urgency pt drinks lots of water Sinus' started three weeks ago, drainage sore throat more in the morning, phlegm yellowish, sinus pressure in eyes and left side of her head, pt has not tried anything otc Sinusitis This is a new problem. The current episode started 1 to 4 weeks ago. The problem is unchanged. There has been no fever. Associated symptoms include congestion, sinus pressure, sneezing and a sore throat. Pertinent negatives include no chills, coughing, ear pain or headaches. UTI This is a new problem. The current episode started in the past 7 days. The problem is unchanged. Associated symptoms include pain. Pertinent negatives include no hematuria. The pain is present in thebladder. Current Outpatient Medications on File Prior to Visit Medication Sig Dispense Refill Ascorbic Acid (vitamin C) 1000 MG tablet aspirin 81 MG EC tablet Take 1 tablet by mouth Daily calcium carbonate 1500 (600 Ca) MG tablet Take 600 mg by mouth in the morning. cholecalciferol (Vitamin D-3) 1.25 MG (98628 UT) capsule Take one capsule daily 100 [...] (25 mg) by mouth every 12 (twelve) [id number] tablet 3 Columbia-3 Fatty Acids (Fish Oil) 1200 MG capsule delayed-release pantoprazole (ProtoNix) 40 MG EC tablet TAKE 1 TABLET BY MOUTH DAILY 100 tablet 3 potassium chloride CR (Klor-Con M20) 20 MEQ ER tablet spironolactone (Aldactone) 25 MG tablet Take 25 mg by mouth in the morning and 25 mg before bedtime. tiZANidine (Zanaflex) 4 MG tablet Take 1 tablet (4 mg) by mouth every 12 (twelve) hours if needed for muscle spasms for up to 10 days 20 tablet 0 torsemide (Demadex) 20 MG tablet TAKE 1 TABLET BY MOUTH EVERY DAY 100 tablet 3 Turmeric 500 MG tablet Take 1 tablet by mouth in the morning. warfarin (Coumadin) 2.5 MG tablet warfarin (Coumadin) 5 MG tablet 1 (one) [...] GASTRIC BYPASS 1998 HERNIA REPAIR 1999 LASIK 2000 eye OTHER SURGICAL HISTORY 1999 tummy tuck THYROIDECTOMY, PARTIAL TRIGGER FINGER RELEASE Bilateral VEIN LIGATION AND STRIPPING Right Visit Vitals BP 118/78 Pulse 63 Temp 97.5 ??F Ht 5' 4 Wt 241 lb SpO2 97% BMI 41.37 kg/m?? Smoking Status Never BSA 2.22 m?? Review of Systems Constitutional: Negative for chills. HENT: Positive for congestion, sinus pressure, sneezing and sore throat. Negative for ear pain. Respiratory: Negative for cough. Genitourinary: Negative for hematuria. Neurological: Negative for headaches. Objective Physical Exam Constitutional: General: She is not in acute distress. Appearance: She is well-developed. She is obese. HENT: Head: Normocephalic and atraumatic. Right Ear: There is impacted cerumen. Left Ear: Tympanic membrane and ear canal normal. Nose: Right Turbinates: Not swollen. Left Turbinates: Not swollen. Comments: Turbinates with mild erythema Mouth/Throat: Mouth: Mucous membranes are moist. Pharynx: No posterior oropharyngeal erythema or postnasal drip. Eyes: General: No scleral icterus. Conjunctiva/sclera: Conjunctivae normal. Cardiovascular: Rate and Rhythm: Normal rate. Rhythm irregularly irregular. Heart sounds: Normal heart sounds. No murmur heard. Pulmonary: Effort: Pulmonary effort is normal. No respiratory distress. Breath sounds: Normal breath sounds. No wheezing, rhonchi or rales. Abdominal: Palpations: Abdomen is soft. Tenderness: There is abdominal tenderness (Mild) in the right lower quadrant and left lower quadrant. There is no right CVA tenderness, left CVA tenderness or guarding. Musculoskeletal: Comments: Left forearm, ulnar aspect, with pea sized nodule, freely mobile, non-tender. Lymphadenopathy: Cervical: No cervical adenopathy. Skin: General: Skin is warm and dry. Neurological: General: No focal deficit present. Mental Status: She is alert and oriented to person, place, and time. Psychiatric: Mood and Affect: Mood normal. Behavior: Behavior normal. Office Visit on 08/07/2024 Component Date Value Ref Range Status Glucose, UA 08/07/2024 Negative Negative - 1999(110) ++++ mg/dL In process Bilirubin, UA 08/07/2024 Negative Negative - 4(70) +++ mg/dL In process Ketones, UA 08/07/2024 Negative Negative - 160(16) ++++ mg/dL In process Spec Grav, UA 08/07/2024 1.005 1 - 1.03 In process Blood, UA 08/07/2024 Positive Negative - 50 Binh/mcL In process trace NH pH, UA 08/07/2024 5.0 5 - 9 In process Protein, UA 08/07/2024 Negative Negative - 2000(20) ++++ mg/dL In process Urobilinogen, UA 08/07/2024 0.2 0.2 - 12 mg/dL In process Leukocytes, UA 08/07/2024 Moderate Negative - 500+++ Ashu/mcL In process Nitrite, UA 08/07/2024 Negative Negative - Positive In process Clinisync Result Encounter on 07/23/2024 Component Date Value Ref Range Status TRIGLYCERIDES 07/23/2024 143 <=150 mg/dL Final CHOLESTEROL 07/23/2024 157 <=200 mg/dL Final HDL CHOLESTEROL 07/23/2024 60 40 - 60 mg/dL Final Comment: > or =60 mg/dl - LOW CARDIOVASCULAR RISK <40 mg/dl - HIGH CARDIOVASCULAR RISK LDL CHOLESTEROL CALCULATED 07/23/2024 68.4 mg/dL Final Comment: <100 mg/dl OPTIMAL 100-129 mg/dl NEAR OR ABOVE OPTIMAL 130-159 mg/dl BORDERLINE HIGH 160-189 mg/dl HIGH >190 mg/dl VERY HIGH VLDL CHOLESTEROL 07/23/2024 28.6 mg/dL Final CHOL HDL RATIO 07/23/2024 2.6 Final Comment: 3.3 - 4.4 LOW RISK 4.4 - 7.1 AVERAGE RISK 7.1 - 11.0 MODERATE RISK >11.0 HIGH RISK HCV AB 07/23/2024 Non Reactive Non Reactive Final INTERPRETATION: 07/23/2024 Comment . Final Comment: Not infected with HCV unless early or acute infection is suspected (which may be delayed in an immunocompromised individual), or other evidence exists to indicate HCV infection. Performed at: [facility] [id number] [place]: Bharat Cain PhD, Phone: [phone] Assessment/Plan Diagnoses and all orders for this visit: Dysuria - POCT urinalysis dipstick manually resulted UA abnormal. Acute cystitis with hematuria - URINARY TRACT INFECTION (HTRX); Future - phenazopyridine (Pyridium) 200 MG tablet; Take 1 tablet (200 mg) by mouth 3 (three) times a day as needed for bladder spasms for up to 2 days - sulfamethoxazole-trimethoprim (Bactrim DS) 800-160 MG per tablet; Take 1 tablet by mouth in the morning and 1 tablet before bedtime. Do all this for 7 days. Start the above medications as directed. Provided patient with prescription for Pyridium for symptomatic relief. Advised of potential side effects including discoloration of urine. Increase water intake, get plenty of rest. Advised patient that the urine will be sent out for culture. May need to change the antibiotic based on the culture results. If patient develops any N/V, fever/chills, or symptoms dramatically increase, the patient is to go to the ER. Otherwise follow up at our office if no improvement in one week. Seasonal allergies - Azelastine HCl 137 MCG/SPRAY solution; Administer 1 spray into affected nostril(s) in the morningand 1 spray before bedtime. Do all this for 14 days. Continue Flonase, take daily before bed. Start Azelastine in the morning. Contact office if symptoms do not improve. Cyst of soft tissue Patient will watch the lesion for now. If gets any larger or becomes painful, will refer pt for further evaluation, possible removal. Follow up if symptoms worsen or fail to improve. documented in this encounter Plan of Treatment Upcoming Encounters Date Type Department Care Team (Late st Contact Info) Description 12/31/2024 9:00 AM EDT Office Visit [facility] [address] [place] [address] Lazaro Borrero, [address] [place] [address] 04/01/2025 10:00 AM EST Office Visit [facility] [address] [place] [address] Sherlyn Rucker, [address] [place] [address] Scheduled Orders Name Type Priority Associated Diagnoses Orde r Schedule URINARY TRACT INFECTION (HTRX) Lab Routine Acute cystitis with hematuria Expected: 08/07/2024 (Approximate), Expires: 08/07/2025 documented as of this encounter Procedures Procedure Name Priority Date/Time Associated Diagnosis Comments POCT URINALYSIS DIPSTICK Routine 08/07/2024 12:43 PM EDT Dysuria documented in this encounter Results * (ABNORMAL) POCT urinalysis dipstick manually resulted (08/07/2024 12:43 PM EDT) Glucose, UA Negative Negative - 2000(110) ++++ mg/dL Bilirubin, UA Negative Negative - 4(70) +++ mg/dL Ketones, UA Negative Negative - 160(16) ++++ mg/dL Spec Grav, UA 1.005 1 - 1.03 Blood, UA Positive Negative - 50 Binh/mcL Comment:trace NH pH, UA 5.0 5 - 9 Protein, UA Negative Negative - 2000(20) ++++ mg/dL Urobilinogen, UA 0.2 0.2 - 12 mg/dL Leukocytes, UA Moderate Negative - 500+++ Ashu/mcL Nitrite, UA Negative Negative - Positive Urine 08/07/2024 12:4 3 PM EDT Marla WILSON POINT OF CARE TEST ENTER/EDIT ORDERABLES Final Result documented in this encounter Visit Diagnoses Diagnosis Dysuria- Primary Acute cystitis with hematuria Seasonal allergies Allergic rhinitis, cause unspecified Cyst of soft tissue documented in this encounter Additional Health Concerns Assessment Noted Time PHQ-9 Depression Total Score: 0 07/08/19 25 9:00 AM EDT documented as of this encounter Care Teams Manager Performance Relationship Specialty Start Date End Date Noel Farnsworth MD [address] [place] [address] PCP - General Internal Medicine 08/14/22 documented as of this encounter
[2024-08-08 02:49] VITALS: BP 120/70; PULSE 75; TEMP 36.9; O2SAT 98; BMI 40.8
--- OUTSIDE RECORDS SUMMARY | 2024-08-08 02:54 | XMS_ITS | Encounter Summary ---
Author Organization [facility] Address [address] [facility] [place] [address] Care Team Providers Care Salesperson Furs Name Role Phone Noel Farnsworth MD Primary Care Provider [phone] Encounter Details Date Type Department Care Team (Late Contact Info) Description 02/21/2023 Orders Only [facility] [address] [facility] [address] [place] [address] A, Unknown Practice [address] [place], [place] [id number] Social History Tobacco Use Types Packs/Day Years Used Date Smoking Tobacco: Never Smokeless Tobacco: Never Alcohol Use Standard Drinks/Week Comments Never 0 (1 standard drink = 0.6 oz pur e alcohol) caffeine: none PHQ-2 Answer Date Recorded Patient Health Questionnaire-2 Score 0 10/25/2022 Comments Unknown Sex and Gender Information Value Date Recorded Sex Assigned at Not on file Legal Sex Female 6:52 PM EDT Gender Identity Not on file Sexual Orientation Not on file documented as of this encounter Plan of Treatment Upcoming Encounters Date Type Department Care Team (Late Contact Info) Description 12/31/2024 9:00 AM EDT Office Visit [facility] [address] [place] [address] Lazaro Borrero DO [address] [place], [place] [id number] 04/01/2025 10:00 AM EST Office Visit [facility] [address] [place] [address] Sherlyn Rucker, [address] [place] [address] documented as of this encounter Procedures Procedure Name Priority Date/Time Associated Diagnosis Comments MAMMOGRAM* Routine 02/20/2023 8:30 AM EST documented in this encounter Results * MAMMOGRAM* (02/20/2023 8:30 AM EST) Anatomical Region Laterality Modality Radiographic Inez ging us Unknown Practice A IMG XR PROCEDURES Final Resul t documented in this encounter Visit Diagnoses Not on filedocumented in this encounter Care Teams Salesperson Furs Relationship Specialty Start Date End Date Noel Farnsworth MD 112 [facility] [address] [place] [address] PCP - General Internal Medicine 08/14/22 documented as of this encounter
--- OUTSIDE RECORDS SUMMARY | 2024-08-08 02:54 | XMS_ITS | Encounter Summary ---
Author Organization [facility] Address [address] [place] [address] Care Team Providers Care Copy Supervisor Name Role Phone Noel Farnsworth MD Primary Care Provider [phone] Encounter Details Date Type Department Care Team (Late Contact Info) Description 12/17/2022 Orders Only [facility] [address] [facility] [address] [place] [address] A, Unknown Practice [address] [place], [place] [phone] Social History Tobacco Use Types Packs/Day Years [...] [facility] [address] [place] [address] Lazaro Borrero DO [address] [place], [place] [id number] 04/01/2025 10:00 AM EST Office Visit [facility] [address] [place] [address] Sherlyn Rucker, [address] [place] [address] documented as of this encounter Procedures Procedure Name Priority Date/Time Associated Diagnosis Comments SCANNED LABS Routine 12/14/2022 10:16 AM EDT documented in this encounter Results * SCANNED LABS (12/14/2022 10:16 AM EDT) us Unknown Practice A LAB CHG PERFORMABLES Final Re sult documented in this encounter Visit Diagnoses Not on filedocumented in this encounter Care Teams Copy Supervisor Relationship Specialty Start Date End Date Noel Farnsworth MD 112 [facility] 110 [place] [address] PCP - General Internal Medicine 08/14/22 documented as of this encounter
--- OUTSIDE RECORDS SUMMARY | 2024-08-08 02:54 | XMS_ITS | Clinical Summary ---
Author Organization [facility] Address [address] [place] [address] Care Team Providers Care Animal Nursery Worker Name Role Phone Unavailable Primary Care Provider Unavailabl e Social History Tobacco Use Types Packs/Day Years Used Date Smoking Tobacco: Never Assessed Sex and Gender Information Value Date Recorded Sex Assigned at Not on file Gender Identity Not on file Sexual Orientation Not on file Last Filed Vital Signs Vital Sign Reading Time Taken Comments Blood Pressure 124/77 12/23/2019 3:27 PM EDT Pulse 64 08/11/2019 9:04 AM EDT Temperature 36.6 C (97.9 F) 08/11/2019 9:01 AM EDT Respiratory Rate - - Oxygen Saturation 99% 12/23/2019 3:28 PM EDT Inhaled Oxygen Concentration - - Weight 114 kg (252 lb) 12/23/2019 3:23 PM EDT Height 165.1 cm (5' 5 ) 12/23/2019 3:23 PM EDT Body Mass Index 41.93 12/23/2019 3:23 PM EDT Plan of Treatment Not on file
--- OUTSIDE RECORDS SUMMARY | 2024-08-08 02:54 | XMS_ITS | Clinical Summary ---
Author Organization [facility] Address [address] [place], [place] [id number] Care Team Providers Care Wire Mesh Gate Assembler Name Role Phone Javad MARSH MD, Noel Snow Primary Care Provider [phone] Allergies Active Allergy Reactions Criticality Noted Date Comments parafum forte [Other] Hives 05/03/2008 Medications HYDROCHLOROTHIAZID E 12.5 MG TAB Take one(1) tablet daily. 0 9 Active calcium citrate(CALCITRATE 950 MG TAB) Take one(1) tablet three times daily. 0 9 Active diphenhydramine hcl(ALLERGY MEDICINE 25 MG TAB) A and D one tablet once daily 0 9 Active ascorbic acid(VITAMIN C 1,000 MG TAB) Take one(1) tablet daily. 0 9 Active omega-3 fatty acids/vitamin e(FISH OIL 1,000 MG CAP) once daily 1,300 mg 0 0 Active Cholecalciferol, Vitamin D3, 10,000 unit ORAL Cap Takes 125,000 IU daily 0 1 Active acetaminophen (TYLENOL EXTRA STRENGTH) 500 mg tablet Take 2 tablets by mouth as directed. Give prior to Reclast 2 tablet 0 3 Active potassium chloride 20 mEq TbERIndications:Po stmenopausal osteoporosis,Hyper parathyroidism, unspecified (HCC),H/O gastric bypass,Vitamin D deficiency,Intesti nal malabsorption, unspecified type (HCC),H/O thyroidectomy Take 20 mEq by mouth three times daily. Active metoprolol tartrate, short acting, (LOPRESSOR) 25 mg tabletIndications: Postmenopausal osteoporosis,Hyper parathyroidism, unspecified (HCC),H/O gastric bypass,Vitamin D deficiency,Intesti nal malabsorption, unspecified type (HCC),H/O thyroidectomy Take 25 mg by mouth twice daily. Active TRIAMTERENE-HYDROC HLOROTHIAZID ORALIndications:Po stmenopausal osteoporosis,Hyper parathyroidism, unspecified (HCC),H/O gastric bypass,Vitamin D deficiency,Intesti nal malabsorption, unspecified type (HCC),H/O thyroidectomy Take by mouth. Active warfarin (COUMADIN) 5 mg tabletIndications: Postmenopausal osteoporosis,Hyper parathyroidism, unspecified (HCC),H/O gastric bypass,Vitamin D deficiency,Intesti nal malabsorption, unspecified type (HCC),H/O thyroidectomy Take 5 mg by mouth daily as directed. Active ferrous sulfate 325 mg (65 mg iron) tabletIndications: Postmenopausal osteoporosis,Hyper parathyroidism, unspecified (HCC),H/O gastric bypass,Vitamin D deficiency,Intesti nal malabsorption, unspecified type (HCC),H/O thyroidectomy Take 325 mg by mouth daily with breakfast. Active ZINC CHELATE ORALIndications:Po stmenopausal osteoporosis,Hyper parathyroidism, unspecified (HCC),H/O gastric bypass,Vitamin D deficiency,Intesti nal malabsorption, unspecified type (HCC),H/O thyroidectomy Take 22 mg by mouth. Active CALCIUM ORALIndications:Po stmenopausal osteoporosis,Hyper parathyroidism, unspecified (HCC),H/O gastric bypass,Vitamin D deficiency,Intesti nal malabsorption, unspecified type (HCC),H/O thyroidectomy Take 626 mg by mouth once daily. Active HOMEOPATHIC DRUGS (PHOSPHORUS ORAL)Indications:P ostmenopausal osteoporosis,Hyper parathyroidism, unspecified (HCC),H/O gastric bypass,Vitamin D deficiency,Intesti nal malabsorption, unspecified type (HCC),H/O thyroidectomy Take 398 mg by mouth once daily. 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 Hyperparathyroidism, unspecified 05/03/2008 Lumbago 05/03/2008 Family History Medical History Relation Comments Diabetes Father Stroke Father Diabetes Mother Heart Mother Stroke Mother Relation Status Comments Father Mother Alive Social History Tobacco Use Types Packs/Day Years Used Date Smoking Tobacco: Former Comments:smoked 1-2 cigs a d ay for 2-3 yrs and quit in 1979 Alcohol Use Standard Drinks/Week Comments Yes 0 (1 standard drink = 0.6 oz pur e alcohol) Area Deprivation Index Answer Date Clyde rded National Score (1-100), lower number is lower ri sk Not on file 02/15/2020 State Score (1-10), lower number is lower risk N ot on file 02/15/2020 Data from: https://www.neighborhoodatlas.medicine.[facility].edu/. Last address used for calculation Not on file 02/15/2020 Comments No Sex and Gender Information Value Date Recorded Sex Assigned at Not on file Legal Sex Female 8:17 AM EST Gender Identity Not on file Sexual Orientation Not on file Occupation Industry Job Start Date Job End Date Retired Not on file Not on file Not on file Last Filed Vital Signs Vital Sign Reading Time Taken Comments Blood Pressure 107/69 07/15/2017 9:02 AM EDT Pulse 59 07/15/2017 9:02 AM EDT Temperature 36.2 C (97.2 F) 07/15/2017 9:02 AM EDT Respiratory Rate - - Oxygen Saturation - - Inhaled Oxygen Concentration - - Weight 108.4 kg (239 lb) 07/15/2017 9:02 AM EDT Height 163.8 cm (5' 4.5 ) 07/15/2017 9:02 AM EDT Body Mass Index 40.39 07/15/2017 9:02 AM EDT Plan of Treatment Health Maintenance Due Date Last Done Comments Anxiety Screening 1972 Depression Screening 1972 Hepatitis C Screening 1972 DTaP,Tdap,Td Vaccine (1 - Tdap) [address] Colonography 09/22/1999 Cologuard (FIT-DNA) 09/22/1999 Colonoscopy 09/22/1999 Colorectal Cancer Screening 09/22/1999 Fecal Occult Blood 09/22/1999 Lipid Screening 09/22/1999 Sigmoidoscopy 09/22/1999 Pneumococcal Vaccine: 50+ (1 of 1 - PCV) 2004 Shingrix Vaccine (1 of 2) 2004 Diabetes Screening 07/03/2018 07/04/2015 Covid-19 Vaccine (1 - 2023-2 5 season) 2023 Advance Directive Discussion 03/11/2024 Influenza Vaccine (Season Ended) 2024 RSV Vaccine (1 - 1-dose 75+ series) 2029 Bone Density Screening Completed 8, 07/04/2015, 07/04/2015, Additional history exists Procedures Procedure Name Priority Date/Time Associated Diagnosis Comments DXA-AXIAL SKELETON Routine 07/15/2017 8: 57 AM EDT Disorder of bone and cartilage Vitamin D deficiency BASIC METABOLIC PANEL Routine 07/04/2015 11:33 AM EDT Postmenopausal osteoporosis Hyperparathyroidism, unspecified (HCC) H/O gastric bypass Vitamin D deficiency Intestinal malabsorption, unspecified type H/O thyroidectomy from Last 3 Months or Most Recently Relevant to Health Maintenance Results * DXA-AXIAL SKELETON (07/15/2017 8:57 AM EDT) LOWEST T-SCORE -2.5 DIVIS ION OF RADIOLOGY Anatomical Region Laterality Modality Radiographic Inez ging 07/15/2017 8:57 AM EDT Impressions 07/19/2017 2:42 PM EDT IMPRESSION: THE LOWEST T-SCORE IS -2.5 DIAGNOSIS: Osteoporosis Spine: Increased bone mass in spine. Hip: Increased bone mass in hip. FRACTURE RISK: Increased RISK FACTORS: This patient is a 61 years Female. MENSTRUAL STATUS: She reports menstrual status of postmenopausal, The patient reports the following risk factors associated with low bone mass or increased fracture risk: - prior smoking history - no exercise - vitamin D deficiency, - past but not current steroid therapy - history of bariatric surgery The patient reports the following: - calcium intake - vitamin D intake - previous therapy with Reclast RECOMMENDATIONS: Based on the patient age, bone density and risk factors: - the patient reports past therapy with a bisphosphonate - the patient has had an increase in bone mass on current therapy. - the patient should take calcium, the recommended dose is 4996-7690 mg per day along with 800-1000 IU vitamin D (some patients may require higher doses of vitamin D). - clinical correlation is required to determine the need for continued therapy. LIMITATIONS: - Degenerative changes in the spine may artificially increase bone mass and make the reading unreliable L1,L2 excluded. FOLLOW-UP: Recommended in 2 years CC: Dr. Olya Hurley [employer] Worker: [id number] Transcribe Date/Time: Jul 15 2017 11:27A Dictated by : KERVIN BANKS MD This examination was interpreted and the report reviewed and electronically signed by: KERVIN BANKS MD on Jul 19 2017 2:39PM EST Narrative 07/19/2017 2:42 PM EDT * * *Final Report* * * DATE OF EXAM: Jul 15 2017 8:57AM B 0804 - BD DXA - AXIAL SKELETON -NB / PROCEDURE REASON: multiple diagnoses * * * * Physician Interpretation * * * * Bone Density Report: Dual Energy X-ray Absorptiometry DXA Model: A50 [facility] (S/N: [id number]) SITE SCANNED: Lumbar spine, left hip and left forearm Date Scanned: 07/15/2017 8:57 AM RESULT: Lumbar spine (L1-L2): 0.963 g/cm2, T-score -1.7, Z-score -0.3 Lumbar spine: 2015: 0.892 g/cm2 Lumbar spine: 2012: 1.002 g/cm2 Lumbar spine change: +0.071 g/cm2, +8.0 %, Left Femoral Neck: 0.748 g/cm2, T-score -2.1, Z-score -0.7 Left Femoral Neck: 2015: 0.698 g/cm2 Left Femoral Neck: 2012: 0.756 g/cm2 Left Femoral Neck Change +0.050 g/cm2, +7.2 %, [id number] Left Total Hip: 0.747 g/cm2, T-score -2.1, Z-score -1.0 Left Total Hip: 2015: 0.713 g/cm2 Left Total Hip: 2012: 0.765 g/cm2 Left Total Hip change: Stable bone mass 0737-8829 Left Forearm, Distal 1/3 of Radius: 0.653 g/cm2, T-score -2.5, Z-score -1.4 Left Forearm: 2016: 0.661 g/cm2 Left Forearm: 2013: 0.700 g/cm2 Left Forearm Change: Stable bone mass 9422-1859 us Olya Hurley MD RAD-PAMA Final Result * (ABNORMAL) BASIC METABOLIC PNL (07/04/2015 11:33 AM EDT) Glucose 75 65 - 100 mg/dL 07/04/2015 5:20 PM EDT [facility] BUN 18 8 - 25 mg/dL 07/04/2015 5:20 PM EDT [facility] Creatinine 0.68(L) 0.70 - 1.40 mg/dL 07/04/2015 5:20 PM EDT [facility] Sodium 141 132 - 148 mmol/L 07/04/2015 5:20 PM EDT [facility] Potassium 3.7 3.5 - 5.0 mmol/L 07/04/2015 5:20 PM EDT [facility] Chloride 104 98 - 110 mmol/L 07/04/2015 5:20 PM EDT [facility] CO2 25 23 - 32 mmol/L 07/04/2015 5:20 PM EDT [facility] Anion Gap 12 0 - 15 mmol/L 07/04/2015 5:20 PM EDT [facility] Calcium 9.7 8.5 - 10.5 mg/dL 07/04/2015 5:20 PM EDT [facility] eGFR- >60 07/04/2015 5:20 PM [facility] eGFR-All Other Races >60 . 07/04/2015 5:20 PM [facility] Comment: eGFR (Estimated GFR) Units of measure: mL/min/1.73 meters squared eGFR is derived from the reexpressed MDRD Study equation using the following parameters: serum creatinine, age, gender and race. The creatinine assay has been calibrated to be traceable to IDMS. An eGFR <60 mL/min/1.73m2 for >3 months is consistent with chronic kidney disease. Refer to KDOQI guidelines for clinical interpretation. In patients with unstable renal function, e.g. those with acute kidney injury, the eGFR may not accurately reflect actual GFR. Blood specimen (specimen) BLOOD SPECIMEN / Unknown 07/04/2015 11:33 AM EDT 07/04/2015 11:35 AM EDT us Olya Hurley MD LABORATORY Final Result [facility] [address] [place] [address] from Last 3 Months or Most Recently Relevant to Health Maintenance Insurance BLUE CARD PPO OOS MEDICARE Care Teams Wire Mesh Gate Assembler Relationship Specialty Start Date End Date Noel Farnsworth II, MD PCP - General Internal Medicine 09/15/12
--- OUTSIDE RECORDS SUMMARY | 2024-08-08 02:54 | XMS_ITS | Encounter Summary ---
Author Organization [facility] Address [address] [place] [address] Care Team Providers Care Quality Control Expert Name Role Phone Noel Farnsworth MD Primary Care Provider [phone] Encounter Details Date Type Department Care Team (Late Contact Info) Description 07/08/2024 Abstract [facility] 112 [facility] 110 [place] [address] Noel Farnsworth MD 112 [facility] 110 [place], [place] [id number] Social History Tobacco Use Types Packs/Day Years [...] NB ORTHO [address] [address] Lazaro Borrero DO [address] [place] [address] 04/01/2025 10:00 AM EST Office Visit [facility] OB [address] [facility] [address] [place] [address] Sherlyn Rucker, DO [address] [facility] 210 [place] [address] documented as of this encounter Visit Diagnoses Not on filedocumented in this encounter Additional Health Concerns Assessment Noted Time PHQ-9 Depression Total Score: 0 07/08/19 25 9:00 AM EDT documented as of this encounter Care Teams Quality Control Expert Relationship Specialty Start Date End Date Noel Farnsworth MD 112 [facility] 110 [place] [address] PCP - General Internal Medicine 08/14/22 documented as of this encounter
--- OUTSIDE RECORDS SUMMARY | 2024-08-08 02:54 | XMS_ITS | Encounter Summary ---
Author Organization [facility] Address [address] [facility] [place] [address] Care Team Providers Care Elevator Tender Name Role Phone Noel Farnsworth MD Primary Care Provider [phone] Encounter Details Date Type Department Care Team ([facility] Contact Info) Description 07/24/2024 Abstract [facility] 112 [facility] 110 [place] [address] Noel Farnsworth MD 112 [facility] 110 [place], [place] [id number] Social History Tobacco Use Types Packs/Day Years [...] NB ORTHO [address] [place] [address] Lazaro Borrero DO [address] [place] [address] 04/01/2025 10:00 AM EST Office Visit [facility] [address] [facility] [address] [place] [address] Sherlyn Rucker, DO [address] [facility] 210 [place] [address] documented as of this encounter Visit Diagnoses Not on filedocumented in this encounter Additional Health Concerns Assessment Noted Time PHQ-9 Depression Total Score: 0 07/08/19 25 9:00 AM EDT documented as of this encounter Care Teams Elevator Tender Relationship Specialty Start Date End Date Noel Farnsworth MD 112 [facility] 110 [place] [address] PCP - General Internal Medicine 08/14/22 documented as of this encounter
--- OUTSIDE RECORDS SUMMARY | 2024-08-08 02:54 | XMS_ITS | Encounter Summary ---
Author Organization [facility] Address [address] [facility] [place] [address] Care Team Providers Care Piece Work Inspector Name Role Phone Noel Farnsworth MD Primary Care Provider [phone] Encounter Details Date Type Department Care Team ([facility] Contact Info) Description 07/23/2024 Abstract [facility] 112 [facility] 110 [place] [address] Noel Farnsworth MD 112 [facility] 110 [place], [place] [id number] Social History Tobacco Use Types Packs/Day Years [...] NB ORTHO [address] [address] Lazaro Borrero DO [address] [place] [address] 04/01/2025 10:00 AM EST Office Visit [facility] [address] [facility] [address] [place] [address] Sherlyn Rucker, DO [address] [facility] 210 [place] [address] documented as of this encounter Visit Diagnoses Not on filedocumented in this encounter Additional Health Concerns Assessment Noted Time PHQ-9 Depression Total Score: 0 07/08/19 25 9:00 AM EDT documented as of this encounter Care Teams Piece Work Inspector Relationship Specialty Start Date End Date Noel Farnsworth MD 112 [facility] 110 [place] [address] PCP - General Internal Medicine 08/14/22 documented as of this encounter
--- OUTSIDE RECORDS SUMMARY | 2024-08-08 02:54 | XMS_ITS | Encounter Summary ---
Author Organization [facility] Address [address] [place] [address] Care Team Providers Care Product Manager Name Role Phone Noel Farnsworth MD Primary Care Provider [phone] Encounter Details Date Type Department Care Team (Late Contact Info) Description 10/29/2022 Orders Only [facility] 112 [facility] [address] [place] [address] A, Unknown Practice [address] [place], [place] [id number] Social History Tobacco Use Types Packs/Day Years [...] ORTHO [address] [place] [address] Lazaro Borrero DO [address] [place] [address] [place], [place] [address] 04/01/2025 10:00 AM EST Office Visit [facility] [address] [place] [address] Sherlyn Rucker, [address] [place] [address] documented as of this encounter Procedures Procedure Name Priority Date/Time Associated Diagnosis Comments SCANNED LABS Routine 10/26/2022 11:29 AM EDT SCANNED LABS Routine 10/26/2022 8:21 AM EDT documented in this encounter Results * SCANNED LABS (10/26/2022 11:29 AM EDT) us Unknown Practice A LAB CHG PERFORMABLES Final Re sult * SCANNED LABS (10/26/2022 8:21 AM EDT) us Unknown Practice A LAB CHG PERFORMABLES Final Re sult documented in this encounter Visit Diagnoses Not on filedocumented in this encounter Care Teams Product Manager Relationship Specialty Start Date End Date Noel Farnsworth MD 112 [facility] 110 [place] [address] PCP - General Internal Medicine 08/14/22 documented as of this encounter
--- OUTSIDE RECORDS SUMMARY | 2024-08-08 02:54 | XMS_ITS | Encounter Summary ---
Author Organization [facility] Address [address] [facility] [place] [address] Care Team Providers Care Field Mechanic Name Role Phone Noel Farnsworth MD Primary Care Provider [phone] Encounter Details Date Type Department Care Team (Late Contact Info) Description 07/08/2024 Abstract [facility] 112 [facility] 110 [place] [address] Noel Farnsworth MD 112 [facility] 110 [place], [place] [phone] Social History Tobacco Use Types Packs/Day Years [...] NB ORTHO [address] [place] [address] Lazaro Borrero DO [address] [place] [address] 04/01/2025 10:00 AM EST Office Visit [facility] [address] [facility] [address] [place] [address] Sherlyn Rucker, DO [address] [facility] 210 [place] [address] documented as of this encounter Visit Diagnoses Not on filedocumented in this encounter Additional Health Concerns Assessment Noted Time PHQ-9 Depression Total Score: 0 07/08/19 25 9:00 AM EDT documented as of this encounter Care Teams Field Mechanic Relationship Specialty Start Date End Date Noel Farnsworth MD 112 [facility] 110 [place] [address] PCP - General Internal Medicine 08/14/22 documented as of this encounter
--- OUTSIDE RECORDS SUMMARY | 2024-08-08 02:54 | XMS_ITS | Encounter Summary ---
Author Organization [facility] Address [address] [facility] [place] [address] Care Team Providers Care Solar Panel Technician Name Role Phone Noel Farnsworth MD Primary Care Provider [phone] Encounter Details Date Type Department Care Team (Late Contact Info) Description 05/16/2023 Abstract [facility] [address] [facility] 110 [place] [address] Noel Farnsworth MD 112 [facility] 110 [place], [place] [phone] Social History Tobacco Use Types Packs/Day Years [...] NB ORTHO [address] [place] [address] Lazaro Borrero DO [address] [place] [address] 04/01/2025 10:00 AM EST Office Visit [facility] [address] [facility] [address] [place] [address] Sherlyn Rucker, DO [address] [facility] 210 [place] [address] documented as of this encounter Visit Diagnoses Not on filedocumented in this encounter Care Teams Solar Panel Technician Relationship Specialty Start Date End Date Noel Farnsworth MD 112 [facility] 110 [place] [address] PCP - General Internal Medicine 08/14/22 documented as of this encounter
--- OUTSIDE RECORDS SUMMARY | 2024-08-08 02:54 | XMS_ITS | Encounter Summary ---
Author Organization [facility] Address [address] [facility] [place] [address] Care Team Providers Care Packerhead Machine Operator Name Role Phone Noel Farnsworth MD Primary Care Provider [phone] Encounter Details Date Type Department Care Team (Late Contact Info) Description 07/23/2024 Results Follow-Up [facility] 112 [facility] 110 [place] [address] Marla Strickland, PA [address] [facility] 110 [place] [address] Social History Tobacco Use Types Packs/Day Years [...] NB ORTHO [address] [place] [address] Lazaro Borrero DO [address] [place] [address] 04/01/2025 10:00 AM EST Office Visit [facility] [address] [place] [address] Sherlyn Rucker, DO [address] [place] [address] documented as of this encounter Visit Diagnoses Not on filedocumented in this encounter Additional Health Concerns Assessment Noted Time PHQ-9 Depression Total Score: 0 07/08/19 25 9:00 AM EDT documented as of this encounter Care Teams Packerhead Machine Operator Relationship Specialty Start Date End Date Noel Farnsworth MD 112 [facility] [place] [facility] 110 [place] [address] PCP - General Internal Medicine 08/14/22 documented as of this encounter
--- OUTSIDE RECORDS SUMMARY | 2024-08-08 02:54 | XMS_ITS | Encounter Summary ---
Author Organization [facility] Address [address] [place] [address] Care Team Providers Care Engraving Operator Name Role Phone Noel Farnsworth MD Primary Care Provider [phone] Encounter Details Date Type Department Care Team (Latest Contact Info) Description 08/07/2024 Travel Social History Tobacco Use Types Packs/Day Years [...] NB ORTHO [address] [place] [address] Lazaro Borrero, DO [address] [place] [address] 04/01/2025 10:00 AM EST Office Visit [facility] [address] [place] [address] Sherlyn Rucker, DO [address] [place] [address] documented as of this encounter Visit Diagnoses Not on filedocumented in this encounter Additional Health Concerns Assessment Noted Time PHQ-9 Depression Total Score: 0 07/08/19 25 9:00 AM EDT documented as of this encounter Care Teams Engraving Operator Relationship Specialty Start Date End Date Noel Farnsworth MD 112 [facility] 110 [place] [address] PCP - General Internal Medicine 08/14/22 documented as of this encounter
--- OUTSIDE RECORDS SUMMARY | 2024-08-08 02:54 | XMS_ITS | Encounter Summary ---
Author Organization [facility] Address [address] [facility] [place] [address] Care Team Providers Care Food Service Team Member Name Role Phone Noel Farnsworth MD Primary Care Provider [phone] Encounter Details Date Type Department Care Team (Late Contact Info) Description 06/19/2023 Abstract [facility] 112 [facility] 110 [place] [address] Noel Farnsworth MD 112 [facility] 110 [place], [place] [id number] Social History Tobacco Use Types Packs/Day Years [...] NB ORTHO [address] [place] [address] Lazaro Borrero DO [address] [place] [address] 04/01/2025 10:00 AM EST Office Visit [facility] [address] [facility] [address] [place] [address] Sherlyn Rucker, DO [address] [facility] 210 [place] [address] documented as of this encounter Visit Diagnoses Not on filedocumented in this encounter Care Teams Food Service Team Member Relationship Specialty Start Date End Date Noel Farnsworth MD 112 [facility] 110 [place] [address] PCP - General Internal Medicine 08/14/22 documented as of this encounter
--- OUTSIDE RECORDS SUMMARY | 2024-08-08 02:54 | XMS_ITS | Encounter Summary ---
Author Organization [facility] Address [facility] [place] [address] Care Team Providers Care Coil Machine Operator Name Role Phone Pcp, Madison QUIJANON Primary Care Provider Keny Farnsworth II, MD, Noel Snow Primary Care Provider [phone] Source Comments In the event this information is protected by the Federal Confidentiality of Alcohol and Drug AbusePatient Records regulations: The Federal rules restrict any use of the information to criminally investigate or prosecute any alcohol or drug abuse patient.[facility] Reason for Visit * Reason Comments Outside Lab Results NTX Encounter Details Date Type Department Care Team (Late st Contact Info) Description 10/10/2011 Abstract Rheumatology [address] [id number] Lali Victor PA-C [id number] [place] [address] Outside Lab Results (NTX) Social History Tobacco Use Types Packs/Day Years Used Date Smoking Tobacco: Former Comments:smoked 1-2 cigs a d ay for 2-3 yrs and quit in 1979 Alcohol Use Standard Drinks/Week Comments Yes 0 (1 standard drink = 0.6 oz pur e alcohol) Comments No Sex and Gender Information Value Date Recorded Sex Assigned at Not on file Legal Sex Female 8:17 AM EST Gender Identity Not on file Sexual Orientation Not on file Occupation Industry Job Start Date Job End Date Retired Not on file Not on file Not on file documented as of this encounter Plan of Treatment Not on file documented as of this encounter Visit Diagnoses Not on filedocumented in this encounter Care Teams Coil Machine Operator Relationship Specialty Start Date End Date Pcp, DANIS Wallace PCP - General 07/20/11 02/08/12 Noel Farnsworth II, MD PCP - General Internal Medicine 09/15/12 documented as of this encounter
--- OUTSIDE RECORDS SUMMARY | 2024-08-08 02:54 | XMS_ITS | Clinical Summary ---
Author Organization [facility] Healthcare Address [address] [place] [address] Care Team Providers Care Medical Artist Name Role Phone Noel Farnsworth MD Primary Care Provider [phone] Allergies Active Allergy Reactions Criticality Noted Date Comments Chlorzoxazone Hives,Unknown 12/26/2007 Gabapentin Unknown 01/09/2021 Medications Ascorbic Acid (vitamin C) 1000 MG tablet Active aspirin 81 MG EC tablet Take 1 tablet by mouth Daily Active famotidine (Pepcid) 20 MG tablet Active potassium chloride CR (Klor-Con M20) 20 MEQ ER tablet Active spironolactone (Aldactone) 25 MG tablet Take 25 mg by mouth in the morning and 25 mg before bedtime. Active warfarin (Coumadin) 5 MG tablet 1 (one) time each day at the same time Active Almond-3 Fatty Acids (Fish Oil) 1200 MG capsule delayed-release Acti ve torsemide (Demadex) 20 MG tabletIndications :Edema, unspecified type TAKE 1 TABLET BY MOUTH EVERY DAY 100 tablet 3 3 Active fluticasone (Flonase) 50 MCG/ACT nasal sprayIndications: Acute dysfunction of left eustachian tube Administer 1 spray into each nostril in the morning. Shake gently. Before first use, prime pump. After use, clean tip and replace cap.. 16 g 2 3 Active calcium carbonate 1500 (600 Ca) MG tablet Take 600 mg by mouth in the morning. Active Copper Gluconate 2 MG tablet Take 1 tablet by mouth in the morning. Active MAGNESIUM PO Take 250 mg by mouth in the morning. Active Turmeric 500 MG tablet Take 1 tablet by mouth in the morning. Active zinc gluconate 50 MG tablet Take 50 mg by mouth in the morning. Active metoprolol tartrate (Lopressor) 25 MG tabletIndications :Essential hypertension, benign (CMS/HCC) Take 1 tablet (25 mg) by mouth every 12 (twelve) hours 200 tablet 3 3 Active cholecalciferol (Vitamin D-3) 1.25 MG (81483 UT) capsuleIndication s:Vitamin D deficiency Take one capsule daily 100 capsule 3 3 Active pantoprazole (ProtoNix) 40 MG EC tabletIndications :Gastroesophageal reflux disease without esophagitis TAKE 1 TABLET BY MOUTH DAILY 100 tablet 3 4 Active ferrous sulfate 325 (65 Fe) MG tabletIndications :Bariatric surgery status Take 1 tablet (325 mg) by mouth in the morning and 1 tablet (325 mg) before bedtime. 60 tablet 11 5 026 Active tiZANidine (Zanaflex) 4 MG tabletIndications :Cervical paraspinal muscle spasm Take 1 tablet (4 mg) by mouth every 12 (twelve) hours if needed for muscle spasms for up to 10 days 20 tablet 5 Active warfarin (Coumadin) 2.5 MG tablet 5 Active phenazopyridine (Pyridium) 200 MG tabletIndications :Acute cystitis with hematuria Take 1 tablet (200 mg) by mouth 3 (three) times a day as needed for bladder spasms for up to 2 days 6 tablet 5 025 Active sulfamethoxazole- trimethoprim (Bactrim DS) 800-160 MG per tabletIndications :Acute cystitis with hematuria Take 1 tablet by mouth in the morning and 1 tablet before bedtime. Do all this for 7 days. 14 tablet 5 025 Active Azelastine HCl 137 MCG/SPRAY solutionIndicatio ns:Seasonal allergies Administer 1 spray into affected nostril(s) in the morning and 1 spray before bedtime. Do all this for 14 days. 30 mL 5 025 Active predniSONE (Deltasone) 10 MG tabletIndications :Right cervical radiculopathy Take 1 tablet (10 mg) by mouth 3 (three) times a day for 3 days, THEN 1 tablet (10 mg) 2 (two) times a day for 3 days, THEN 1 tablet (10 mg) Daily for 3 days. 18 tablet 5 025 Active Problems Problem Noted Date Diagnosed Date BMI 40.0-44.9, adult 07/07/2024 Subclinical hypothyroidism 06/23/2024 Iron deficiency anemia 11/28/2023 Former smoker 05/13/2023 Anticoagulated 12/27/2022 Edema of both legs 12/27/2022 High risk medication use 12/27/2022 Hypokalemia 12/27/2022 Acquired pes planus of left foot 12/05/2022 Atrophy of vagina 12/05/2022 Elevated AST (SGOT) 12/05/2022 Hypertension 12/05/2022 Left Achilles tendinitis 12/05/2022 Morbid obesity 12/05/2022 Pes planus 12/05/2022 Piriformis syndrome 12/05/2022 Plantar fasciitis, bilateral 12/05/2022 Other chronic sinusitis 12/05/2022 Urge incontinence of urine 12/05/2022 Mitral valve prolapse 10/25/2022 A-fib 10/25/2022 GERD (gastroesophageal reflux disease) Right anterior shoulder pain 08/14/2022 Cervical paraspinal muscle spasm 08/14/2022 Right cervical radiculopathy 08/14/2022 Seasonal allergies 10/12/2020 LPRD (laryngopharyngeal reflux disease) 05/04/19 21 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 We will obtain a follow-up bone mineral density in January 2023. Fall precautions and the importance of exercise discussed with patient Monoarticular arthritis 05/06/2019 Primary osteoarthritis of right knee 12/01/2018 Lymphedema 11/21/2018 Elevated levels of transaminase & lactic acid de hydrogenase 09/03/2017 Hypercalcemia 09/03/2017 Thrombocytopenia 09/03/2017 Asthmatic bronchitis 08/02/2017 Internal derangement of left shoulder 02/08/2017 Fatigue 02/06/2016 History of gastric bypass 07/25/2015 Obstructive sleep apnea syndrome 07/25/2015 Height loss 07/04/2015 H/O thyroidectomy 07/04/2015 Fibrocystic breast changes 05/27/2015 Lumbar radiculopathy 01/04/2015 Chronic venous insufficiency 01/03/2015 Non-toxic multinodular goiter 01/03/2015 Vitamin B-complex deficiency 01/03/2015 Cramp of limb 05/03/2008 Disorder of bone and cartilage 05/03/2008 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 She also has primary hyperparathyroidism without compelling reasons to recommend parathyroidectomy. We will continue monitoring PTH and serum calcium levels Vitamin D deficiency 05/03/2008 Acquired trigger finger 12/26/2007 Carpal tunnel syndrome 12/26/2007 Resolved Problems Problem Noted Date Diagnosed Date Resolved Date BMI 39.0-39.9,adult 05/13/2023 07/08/19 25 Cellulitis of right lower extremity 12/27/2022 07/07/2024 Edema of lower extremity 12/05/2022 Anemia 10/25/2022 07/07/2024 Encounters Date Type Department Care Team Description 08/07/2024 12:30 PM EDT Office Visit [facility] [address] [place] [address] Marla Strickland PA Dysuria (Primary Dx); Acute cystitis with hematuria; Seasonal allergies; Cyst of soft tissue 08/07/2024 Travel 08/07/2024 Abstract [facility] [address] [facility] [address] [place] [address] Leonie Mendoza, ADVERTISING INSERTER 07/27/2024 Abstract [facility] [address] [facility] [address] [place] [address] Noel Farnsworth MD 07/24/2024 Abstract [facility] [address] [facility] [address] [place] [address] Noel Farnsworth MD 07/23/2024 Results Follow-Up [facility] [address] [facility] [address] [place] [address] Marla Strickland PA 07/23/2024 Abstract [facility] [address] [facility] [address] [place] [address] Noel Farnsworth MD 07/23/2024 Clinisync Result Encounter [facility] External Department Unsolicited Marla Strickland PA 07/08/2024 Abstract [facility] [address] [facility] [address] [place] [address] Noel Farnsworth MD 07/08/2024 Abstract [facility] [address] [facility] [address] [place] [address] Noel Farnsworth MD 07/07/2024 9:30 AM EDT Office Visit [facility] [address] [facility] [address] [place] [address] Marla Strickland, PA Medicare annual wellness visit, subsequent (Primary Dx); ACP (advance care [...] knee; Right anterior shoulder pain; Senile osteoporosis (CMS/HCC); Hyperparathyroidism ([facility]/HCC); Morbid obesity ([facility]/HCC); Non-toxic multinodular goiter ([facility]/HCC); BMI 40.0-44.9, adult ([facility]/HCC); Subclinical hypothyroidism ([facility]/HCC); Vitamin B-complex deficiency; Vitamin D deficiency; Other iron deficiency anemia; Thrombocytopenia ([facility]/HCC); Other chronic sinusitis; Anticoagulated; Elevated levels of [...] ear with unrestricted hearing of right ear 07/07/2024 Bamboo flowsheet [facility] [address] [facility] [address] [place] [address] Marla Strickland PA 07/07/2024 Travel 07/02/2024 9:30 AM EDT Office Visit [facility] [address] [place] [address] Lazaro Borrero DO Complete tear of right rotator cuff, unspecified whether traumatic (Primary Dx) 07/02/2024 Bamboo flowsheet [facility] [address] [place] [place] [address] Lazaro Borrero DO 07/02/2024 Travel 06/24/2024 1:30 PM EDT Office Visit [facility] [address] [facility] [address] [place] [address] Leonie Mendoza, ADVERTISING INSERTER Acute frontal sinusitis, recurrence not specified (Primary Dx); PND (post-nasal drip) 06/24/2024 Bamboo flowsheet [facility] [address] [facility] [address] [place] [address] Leonie Mendoza, ADVERTISING INSERTER 06/24/2024 Travel 06/23/2024 Abstract [facility] [address] [address] [place] [address] Noel Farnsworth MD 06/09/2024 Clinisync Result Encounter [facility] External Department Unsolicited Provider, Generic External Data 06/01/2024 Telephone [facility] [address] [facility] [address] [place] [address] Ginger Ceja MA 05/28/2024 8:30 AM EDT Office Visit [facility] [address] [facility] [address] [place] [phone] Leonie Mendoza, STACY Strain of great toe of left foot, initial encounter (Primary Dx); Great toe pain, left; Bunion, left foot; Lymphedema 05/28/2024 Travel 05/08/2024 Refill [facility] [address] [facility] [address] [place] [address] Leonie Mendoza, ADVERTISING INSERTER Acute non-recurrent sinusitis, unspecified location from Last 3 Months Immunizations Immunization Administration Dates Next Due Influenza, seasonal, injectable, preservative fr ee 01/07/2012 Family History Medical History Relation Name Comments Tongue cancer Brother Diabetes Father Multiple sclerosis Father Parkinsonism Father Stroke Father Colon cancer Maternal Cousin Diabetes Mother Heart disease Mother Heart failure Mother Stroke Mother Melanoma Neg Hx Relation Name Status Comments Brother Father Maternal Cousin Alive Mother Social History Tobacco Use Types Packs/Day Years Used Date Smoking Tobacco: Never Smokeless Tobacco: Never Tobacco Cessation:Counseling Given: Yes Alcohol Use Standard Drinks/Week Comments Never 0 [...] F) 08/07/2024 12:39 PM EDT Respiratory Rate 16 07/07/2024 9:38 AM EDT Oxygen Saturation 97% 08/07/2024 12:39 PM EDT Inhaled Oxygen Concentration - - Weight 109 kg (241 lb) 08/07/2024 12:39 PM EDT Height 162.6 cm (5' 4 ) 08/07/2024 12:39 PM EDT Body Mass Index 41.37 08/07/2024 12:39 PM EDT Plan of Treatment Upcoming Encounters Date Type Department Care Team (Late st Contact Info) Description 12/31/2024 9:00 AM EDT Office Visit [facility] [address] [place] [address] Lazaro Borrero, DO [address] [place] [address] 04/01/2025 10:00 AM EST Office Visit [facility] [address] [place] [address] [place] [address] Sherlyn Rucker, DO [address] [place] [address] Health Maintenance Due Date Last Done Comments CT Colonography 1955 FIT-DNA 1955 FIT 1955 FOBT 1955 Sigmoidoscopy 1955 Pneumococcal Vaccine: 65+ Ye ars (1 of 2 - PCV) 1973 Influenza Vaccine (Season Ended) 2024 01/07/20 12 Mammogram 03/19/2025 03/19/2024, 02/08, 02/20/2023, Additional history exists Medicare Annual Wellness (AWV) 07/07/2025 0 07/07/2024, 10/29/2023, 02/15/2023, Additional history exists Colonoscopy 03/30/2030 03/30/2020, 03/30/2020 Colorectal Cancer Screening 03/30/2030 Procedures Procedure Name Priority Date/Time Associated Diagnosis Comments POCT URINALYSIS DIPSTICK Routine 08/07/2024 12:43 PM EDT Dysuria HCV ANTIBODY CASCADE(PCR/BILLY) Routine 07/23/2024 7:56 AM EDT ALL LIPID PROFILE (FASTING) Routine 07/23/2024 7:56 AM EDT [place] ARTHROCENTESIS ASPIR&/INJ MAJOR JT/BURSA W/US Routine 07/02/2024 9:57 AM EDT Complete tear of right rotator cuff, unspecified whether traumatic ALL THYROXINE (T4) FREE Routine 06/09/2024 9:45 AM EDT [facility] VITAMIN D 25 [place] Routine 06/09/2024 9 :45 AM EDT ALL THYROID STIM HORMONE Routine 06/09/2024 9:45 AM EDT [facility] CMP (CMP) (FOR REMOTE [facility] USE) Routine 06/09/2024 9:45 AM EDT URIC ACID Routine 05/29/2024 10:35 AM EDT Great toe pain, left BI MAMMOGRAM SCREENING TOMOSYNTHESIS BILATERAL Routine 03/19/2024 3:41 PM EST Encounter for mammogram to establish baseline mammogram COLONOSCOPY Routine 03/30/2020 12:00 PM EST from Last 3 Months or Most Recently Relevant to Health Maintenance Results * (ABNORMAL) POCT urinalysis dipstick manually resulted (08/07/2024 12:43 PM EDT) Glucose, UA Negative Negative - 1999(110) ++++ mg/dL Bilirubin, UA Negative Negative - 4(70) +++ mg/dL Ketones, UA Negative Negative - 160(16) ++++ mg/dL Spec Grav, UA 1.005 1 - 1.03 Blood, UA Positive Negative - 50 Binh/mcL Comment:trace NH pH, UA 5.0 5 - 9 Protein, UA Negative Negative - 1999(20) ++++ mg/dL Urobilinogen, UA 0.2 0.2 - 12 mg/dL Leukocytes, UA Moderate Negative - 500+++ Ashu/mcL Nitrite, UA Negative Negative - Positive Urine 08/07/2024 12:4 3 PM EDT Marla WILSON POINT OF CARE TEST ENTER/EDIT ORDERABLES Final Result * HCV ANTIBODY CASCADE(PCR/BILLY) (07/23/2024 7:56 AM EDT) HCV AB Non Reactive Non Reactive [facility] INTERPRETATION: Comment . [facility] Comment: Not infected with HCV unless early or acute infection is suspected (which may be delayed in an immunocompromised individual), or other evidence exists to indicate HCV infection. Performed at: [facility] [id number] Fixing Machine Operator: Bharat Cain PhD, Phone: [phone] 07/23/2024 7:56 AM EDT 07/23/2024 7:57 AM EDT Narrative CLINISY[facility] - 07/24/2024 8:09 AM EDT Marla WILSON LAB BLOOD ORDERABLES Final Res ult [facility] * ALL LIPID PROFILE (FASTING) (07/23/2024 7:56 AM EDT) TRIGLYCERIDES 143 <=150 mg/dL [facility] CHOLESTEROL 157 <=200 mg/dL TB HDL CHOLESTEROL 60 40 - 60 mg/dL [facility] Comment: > or =60 mg/dl - LOW CARDIOVASCULAR RISK <40 mg/dl - HIGH CARDIOVASCULAR RISK LDL CHOLESTEROL CALCULATED 68.4 mg/dL TB Comment: <100 mg/dl OPTIMAL 100-129 mg/dl NEAR OR ABOVE OPTIMAL 130-159 mg/dl BORDERLINE HIGH 160-189 mg/dl HIGH >190 mg/dl VERY HIGH VLDL CHOLESTEROL 28.6 mg/dL TB CHOL HDL RATIO 2.6 TB Comment: 3.3 - 4.4 LOW RISK 4.4 - 7.1 AVERAGE RISK 7.1 - 11.0 MODERATE RISK >11.0 HIGH RISK 07/23/2024 7:56 AM EDT 07/23/2024 7:57 AM EDT Narrative CLINISYNC - 07/23/2024 10:54 AM EDT us Marla WILSON CLINISYNC Final Result CLINISYNC [facility] * [place] ARTHROCENTESIS ASPIR&/INJ MAJOR JT/BURSA W/US (07/02/2024 9:57 AM EDT) Margaux Rivers MA - 07/02/2024 9:57 AM EDT Margaux Walker MA 07/02/2024 1:02 PM L Inj/Asp: R glenohumeral on 07/02/2024 9:57 AM Indications: pain Details: 25 G needle, ultrasound-guided Medications: 12 mg betamethasone acetate-betamethasone sodium phosphate 6 (3-3) MG/ML Consent was given by the patient. Lazaro Borrero DO IN CLINIC/BEDSIDE ORDERABLES Fi nal Result * [facility] VITAMIN D 25 [place] (06/09/2024 9:45 AM EDT) VITAMIN D 64.5 ng/mL [facility] Comment: <20 ng/mL Vit D deficient 20-<30 ng/mL Vit D insufficient 30-100 ng/mL Vit D sufficient >100 ng/mL Potential Toxicity 06/09/2024 9:45 AM EDT 06/09/2024 9:54 AM EDT Narrative CL[facility] - 06/09/2024 11:17 AM EDT Generic External Data Provider CLIN[facility] F inal Result CLINISYNC [facility] * (ABNORMAL) [facility] CMP (CMP) (FOR REMOTE [facility] USE) (06/09/2024 9:45 AM EDT) SODIUM 142 136 - 145 mmol/L [facility] POTASSIUM 4.7 3.5 - 5.1 mmol/L [facility] CHLORIDE 107 98 - 107 mmol/L [facility] CARBON DIOXIDE 27.5 21.0 - 32.0 mmol/L [facility] ANION GAP 12.2 [facility] GLUCOSE 89 74 - 106 mg/dL [facility] BLOOD UREA NITROGEN 28.0(H) 7.0 - 18.0 mg/dL [facility] CREATININE 0.87 0.55 - 1.02 mg/dL [facility] TBH EGFR-AF BELIZEAN >60 >=60 mL/min/1. 73m 2 TBH TBH EGFR-NON AF BELIZEAN >60 >=60 mL/min/1. 73m 2 TBH BUN CREATININE RATIO 32.2 TBH CALCIUM 9.9 8.5 - 10.1 mg/dL [facility] BILIRUBIN TOTAL 1.0 0.2 - 1.0 mg/dL [facility] ASPARTATE AMINO TRANSFERASE 25 15 - 37 U/L [facility] ALANINE AMINOTRANSFERASE 23 14 - 59 U/L [facility] ALKALINE PHOSPHATASE 77 46 - 116 U/L [facility] TOTAL PROTEIN 6.9 6.4 - 8.2 g/dL [facility] ALBUMIN LEVEL 3.3(L) 3.4 - 5.0 g/dL [facility] GLOBULIN 3.6 g/dL [facility] ALBUMIN GLOBULIN RATIO 0.9 [facility] 06/09/2024 9:45 AM EDT 06/09/2024 9:54 AM EDT Narrative CLINISYNC - 06/09/2024 10:55 AM EDT Generic External Data Provider CLINISYNC F ina Result Performing Organization Address [facility] de Phone Number [facility] * ALL THYROXINE (T4) FREE (06/09/2024 9:45 AM EDT) FREE T4 0.95 0.76 - 1.46 ng/dL TB 06/09/2024 9:45 AM EDT 06/09/2024 9:54 AM EDT Narrative CLINISYNC - 06/09/2024 11:17 AM EDT Generic External Data Provider CLINISYNC F inal Result Performing Organization Address [facility] de Phone Number [facility] * ALL THYROID STIM HORMONE (06/09/2024 9:45 AM EDT) THYROID STIMULATING HORMONE 2.111 0.358 - 3.740 uIU/mL [facility] 06/09/2024 9:45 AM EDT 06/09/2024 9:54 AM EDT Narrative CLINISYNC - 06/09/2024 10:55 AM EDT us Generic External Data Provider CLIN[facility]NC F inal Result Performing Organization Address [facility] Co de Phone Number [facility] * Uric acid (05/29/2024 10:35 AM EDT) URIC ACID 6.8 2.5 - 7.0 mg/dL [facility] Comment: Therapeutic target for gout patients: <6.0 mg/dL Blood Venous blood specimen / Unknown 05/29/2024 10:35 AM EDT 05/29/2024 10:36 AM EDT Narrative [facility] - 05/30/2024 2:59 AM EDT FASTING:NO FASTING: NO Resulting Agency Comment Performing Organization Information Site ID: [id number] Name: [facility] Address: [address] [place] [address], [address] [place] [id number] Director: Jose Yao MD Leonie Mendoza ADVERTISING INSERTER LAB BLOOD ORDERABLES Final Resul t Performing Organization Address [facility] de Phone Number [facility] * Bilateral screening mammogram with tomosynthesis (03/19/2024 3:41 PM EST) Anatomical Region Laterality Modality Breast Bilateral Mammography 03/19/2024 3:41 PM EST Impressions 03/19/2024 3:49 PM EST NO MAMMOGRAPHIC EVIDENCE OF MALIGNANCY. ROUTINE FOLLOW-UP [...] Erik Rodriguez M.D.03/19/2024 3:47 PM Dictation Location: [facility] Transcribed By: [facility] 03/19/241546 Dictated By: Erik Rodriguez MD 03/19/24 154 Signed By: <Electronically signed by Erik Rodriguez MD in OV> 03/19/24 1547 Narrative 03/19/2024 3:49 PM EST [facility] [place] [address] Mammography Report Signed Patient: Marla Figueredo MR#: [id number] 6 : 1955 Acct:[id number] Age/Sex: 68 / F ADM Date: 03/19/24 Loc: [place] Room: Type: REG CLI Attending Dr: Sherlyn Rucker DO Copies to: [...] interval change. MM/MM screening mammo BI w/CAD Procedure Note Radiology, Radiologist, MD - 03/19/2024 [facility] [address] [place] [id number] Mammography Report Signed Patient: Marla Figueredo AMR#: [id number] 6 : 5Acct:[id number] Age/Sex: 68 / FADM Date: 03/19/24 Loc: [place] Room:Type: REG CLI Attending Dr: Sherlyn Rucker DO Copies to: MD Sherlyn Miller II, DO Ordering Provider: Sherlyn Rucker DO Date of Service: 03/19/24 MM/MM screening mammo BI w/CAD: screening CLINICAL DATA: Screening for malignancy. SCREENING MAMMOGRAM - FULL FIELD DIGITAL WITH TOMOSYNTHESIS AND CAD COMPARISON:Priors dating back to 2019 Tomosynthesis craniocaudal and mediolateral oblique views of both breastswere obtained using low- dose digital technique. This examination was reviewed with the aid ofCAD. The breast tissue is almost entirely fatty. There are no dominant masses,typically malignant calcifications or architectural distortion. There has been no significantinterval change. MM/MM screening mammo BI w/CAD IMPRESSION: NO MAMMOGRAPHIC EVIDENCE OF MALIGNANCY. ROUTINE FOLLOW-UP IS RECOMMENDED IN ONE YEAR. RESULT CODE: 1 Negative DENSITY CODE: 1 (<25% glandular) FOLLOW UP: 1YR The false-negative rate of mammography is approximately 10-percent. Management of a palpable abnormality must be based on clinical grounds. Patient was entered into a reminder system with a target due date for thenext mammogram. Impression dictated by: Erik Rodriguez M.D.03/19/2024 3:47 PM Dictation Location: [facility] Transcribed By: AJ 03/19/24 1547 Dictated By: Erik Rodriguez MD 03/19/24 1541 Signed By: <Electronically signed by Erik Rodriguez MD in OV> 03/19/24 1547 Sherlyn Rucker DO IMG BI PROCEDURES Final Res ult * Colonoscopy (03/30/2020 12:00 PM EST) Anatomical Region Laterality Modality Endoscopy 03/30/2020 12:0 0 PM EST Narrative 03/30/2020 12:00 PM EST PERFORMED AT [facility] LOCATION:[id number] Negative Procedure Note CONVERSION, GENERIC - 07/25/2022 PERFORMED AT [facility] LOCATION:[id number] Negative Noel Farnsworth MD ENDOSCOPY PROCEDURE ORDERABLES Final Result from Last 3 Months or Most Recently Relevant to Health Maintenance Insurance [employer] Care Teams Medical Artist Relationship Specialty Start Date End Date Noel Farnsworth MD [address] [facility] [address] [place] [address] PCP - General Internal Medicine 08/14/22
--- OUTSIDE RECORDS SUMMARY | 2024-08-08 02:54 | XMS_ITS | Encounter Summary ---
Author Organization [facility] Address [address] [facility] [place] [address] Care Team Providers Care Software Configuration Engineer Name Role Phone Noel Farnsworth MD Primary Care Provider [phone] Encounter Details Date Type Department Care Team ([facility] Contact Info) Description 08/07/2024 Abstract [facility] [address] [facility] [address] [place] [address] Leonie Mendoza, BOOKBINDER CHIEF 112 [facility] [address] [place], [place] [id number] Social History Tobacco Use Types Packs/Day Years [...] Upcoming Encounters Date Type Department Care Team ([facility] Contact Info) Description 12/31/2024 9:00 AM EDT Office Visit [facility] [address] [facility] [place] [place] [address] Lazaro Borrero DO [address] [place], [place] [id number] 04/01/2025 10:00 AM EST Office Visit [facility] [address] [facility] [address] [place] [address] Sherlyn Rucker, DO [address] [place] [address] documented as of this encounter Visit Diagnoses Not on filedocumented in this encounter Additional Health Concerns Assessment Noted Time PHQ-9 Depression Total Score: 0 07/08/19 25 9:00 AM EDT documented as of this encounter Care Teams Software Configuration Engineer Relationship Specialty Start Date End Date Noel Farnsowrth MD 112 [facility] [address] [place] [address] PCP - General Internal Medicine 08/14/22 documented as of this encounter
--- OUTSIDE RECORDS SUMMARY | 2024-08-08 02:54 | XMS_ITS | Referral Summary ---
Author Organization [facility] Address [address] [place] [address] Care Team Providers Care Preload Supervisor Name Role Phone Unavailable Primary Care Provider [...]
--- OUTSIDE RECORDS SUMMARY | 2024-08-08 02:54 | XMS_ITS | Encounter Summary ---
Author Organization [facility] Address [facility] [place] [address] Care Team Providers Care Informatics Physician Liaison Name Role Phone Pcp, No PROGRAMS ASSISTANT Primary Care Provider Keny lewis Pcp, No PROGRAMS ASSISTANT Primary Care Provider Keny Farnsworth II, MD, Noel Snow Primary Care Provider [phone] Source Comments In the event this information is protected by the Federal Confidentiality of Alcohol and Drug AbusePatient Records regulations: The Federal rules restrict any use of the information to criminally investigate or prosecute any alcohol or drug abuse patient.[facility] Reason for Visit * Reason Comments Outside Lab Results NTX 07/18/2010 Encounter Details Date Type Department Care Team (Late st Contact Info) Description 07/25/2010 Abstract Rheumatology [address] [address] Lali Victor PA-C [id number] [place] [address] Outside Lab Results (NTX 07/18/2010) Social History Tobacco Use Types Packs/Day Years [...] on filedocumented in this encounter Care Teams Informatics Physician Liaison Relationship Specialty Start Date End Date Pcp, No, PROGRAMS ASSISTANT PCP - General 03/21/10 10/08/10 Pcp, No, PROGRAMS ASSISTANT PCP - General 07/20/11 02/08/12 Noel Farnsworth II, MD PCP - General Internal Medicine 09/15/12 documented as of this encounter
--- OUTSIDE RECORDS SUMMARY | 2024-08-08 02:54 | XMS_ITS | Encounter Summary ---
Author Organization [facility] Address [address] [facility] [place] [address] Care Team Providers Care Flask Maker Name Role Phone Noel Farnsworth MD Primary Care Provider [phone] Encounter Details Date Type Department Care Team ([facility] Contact Info) Description 07/27/2024 Abstract [facility] 112 [facility] 110 [place] [address] Noel Farnsworth MD 112 [facility] [address] [place], [place] [id number] Social History Tobacco Use Types Packs/Day Years [...] NB ORTHO [address] [place] [address] Lazaro Borrero DO [address] [place] [address] 04/01/2025 10:00 AM EST Office Visit [facility] [address] [facility] [address] [place] [address] Sherlyn Rucker, DO [address] [facility] [address] [place] [address] documented as of this encounter Visit Diagnoses Not on filedocumented in this encounter Additional Health Concerns Assessment Noted Time PHQ-9 Depression Total Score: 0 07/08/19 25 9:00 AM EDT documented as of this encounter Care Teams Flask Maker Relationship Specialty Start Date End Date Noel Farnsworth MD 112 [facility] [address] [place] [address] PCP - General Internal Medicine 08/14/22 documented as of this encounter
--- OUTSIDE RECORDS SUMMARY | 2024-08-08 02:54 | XMS_ITS | Encounter Summary ---
Author Organization [facility] Address [address] [place] [address] Care Team Providers Care Cell Preparer Name Role Phone Noel Farnsworth MD Primary Care Provider [phone] Encounter Details Date Type Department Care Team (Late Contact Info) Description 03/28/2023 Orders Only [facility] 112 [facility] [address] [place] [address] A, Unknown Practice [address] [place], [place] [id number] Social History Tobacco Use Types Packs/Day Years [...] NB ORTHO [address] [place] [address] Lazaro Borrero DO [address] [place], [place] [id number] 04/01/2025 10:00 AM EST Office Visit [facility] [address] [place] [address] Sherlyn Rucker, [address] [place] [address] documented as of this encounter Procedures Procedure Name Priority Date/Time Associated Diagnosis Comments DEXA BONE DENSITY Routine 03/28/2023 1:51 PM EST documented in this encounter Results * DEXA bone density (03/28/2023 1:51 PM EST) Anatomical Region Laterality Modality Body Radiographic Inez ging us Unknown Practice A IMG DXA PROCEDURES Final Resu lt documented in this encounter Visit Diagnoses Not on filedocumented in this encounter Care Teams Cell Preparer Relationship Specialty Start Date End Date Noel Farnsworth MD 112 [facility] 110 [place] [address] PCP - General Internal Medicine 08/14/22 documented as of this encounter
--- OUTSIDE RECORDS SUMMARY | 2024-08-08 02:54 | XMS_ITS | Encounter Summary ---
Author Organization [facility] Address [address] [facility] [place] [address] Care Team Providers Care Musculoskeletal Physiotherapist Name Role Phone Noel Farnsworth MD Primary Care Provider [phone] Encounter Details Date Type Department Care Team ([facility] Contact Info) Description 10/30/2022 Abstract [facility] [address] [facility] 110 [place] [address] Noel Fransworth MD 112 [facility] [address] [place], [place] [phone] Social History Tobacco Use Types Packs/Day Years [...] NB ORTHO [address] [place] [address] Lazaro Borrero DO [address] [place] [address] 04/01/2025 10:00 AM EST Office Visit [facility] [address] [facility] [address] [place] [address] Sherlyn Rucker, DO [address] [facility] [address] [place] [address] documented as of this encounter Visit Diagnoses Not on filedocumented in this encounter Care Teams Musculoskeletal Physiotherapist Relationship Specialty Start Date End Date Noel Farnsworth MD 112 [facility] [address] [place] [address] PCP - General Internal Medicine 08/14/22 documented as of this encounter
--- OUTSIDE RECORDS SUMMARY | 2024-08-08 02:54 | XMS_ITS | CCD ---
Author Organization [facility] Care Team Providers Care Rotary Helper Name Role Phone STEPHANIE CAVAZOS AM Admitting Unavailable STEPHANIE CAVAZOS AM Attending Unavailable NOEL FARNSWORTH Referring Unavailable NOEL FARNSWORTH Primary Care Unavailable PHYSICIAN, DEFAULT Admitting Unavailable PHYSICIAN, DEFAULT Attending Unavailable NOEL FARNSWORTH Primary Care Unavailable Unavailable Unavailable Unavailable Unavailable SALMA Farnsworth Primary Care Provider TANIA Strickland Attending Provider [phone] DO Sherlyn Rucker Referring Provider GLEN Strickland [...] e LEON, DR HARPREET Conner Consulting Unavailable KHALIDACHNANCY .KATIE Consulting Unavailabl e DR NOEL FARNSWORTH Primary Care Unavailable PRABHAKAR, DR MILY Batista Admitting Unavailable PRABHAKAR, DR MILY Batista Consulting Unavailable PRABHAKAR, DR MILY Batista Attending Unavailable DR NOEL FARNSWORTH Primary Care Unavailable PRABHAKAR, DR MILY Batista Consulting Unavailable PRABHAKAR, DR MILY Batista Attending Unavailable PRABHAKAR, DR MILY Batista Admitting Unavailable FAWWACintia, KOCH H Admitting Unavailable FAJONO, KOCH H Attending Unavailable DR NOEL FARNSWORTH Primary Care Unavailable FAWWAD, KOCH H Admitting Unavailable FAWLENIN, KOCH H Attending Unavailable DR NOEL FARNSWORTH Primary Care Unavailable ERWIN, TRUNG Attending Unavailable [...] Unavailable HIGHLANDER, DEEPIKA Chamberlain Consulting Unavailable LALOR, PETER Attending Unavailable LALOR, PETER Admitting Unavailable LALOR, DEEPIKA Consulting Unavailable JAVAD, DR PETERSON Primary Care Unavailable FARNSWORTH, DR PETERSON Primary Care Unavailable PRABHAKAR, DR MILY Batista Consulting Unavailable PRABHAKAR, DR MILY Batista Attending Unavailable PRABHAKAR, DR MILY Batista Admitting Unavailable FAWWAD, KOCH H Attending Unavailable FARNSWORTH, DR PETERSON Primary Care Unavailable FAWWAD, KOCH H Admitting Unavailable Noel Farnsworth Unavailable Prabhakar, Dr. Mily Borrero Attending Soniya vailable Prabhakar, Dr. Mily Borrero Referring Soniya vailable Farnsworth II, Dr. Noel Payne Primary Care Soniya vailable Prabhakar, Dr. Mily Borrero Attending Soniya vailable Prabhakar, Dr. Mily Borrero Referring Soniya vailable Farnsworth II, Dr. Noel Payne Primary Care Soniya vailable Farnsworth, II Noel Primary Care Provider [phone] Self, Referral Attending Provider Unavailable SALMA aFrnsworth Attending Provider [phone] Noel Farnsworth MD Primary Care Provider Noel Farnsworth MD Primary Care Provider TRUNG GONZALEZ Attending Un available NOEL FARNSWORTH Referring Unavailable NOEL FARNSWORTH Primary Care Unavailable Javad II, Noel Primary Care Provider Sherlyn Rucker DO Attending Provider [phone] MILY PRABHAKAR Attending Unavailable NOEL FARNSWORTH Primary Care Unavailable MILY PRABHAKAR Attending Unavailable MILY PRABHAKAR Referring Unavailable NOEL FARNSWORTH Primary Care Unavailable Noel Farnsworth MD Primary Care Provider [phone] TRUNG RICE Attending Un available NOEL FARNSWORTH Referring Unavailable NOEL FARNSWORTH Primary Care Unavailable EMILY PARK Attending Unavailable PARKEMILY Attending Unavailable PARKEMILY Attending Unavailable PARKEMILY Attending Unavailable LAZARO BORRERO Attending Unavailable HEMMERMARLA Attending Unavailable BROWNLAZARO Attending Unavailable HEMMERMARLA Attending Unavailable PARKEMILY Attending Unavailable HEMMERMARLA Attending Unavailable DENISHA HERRON Attending Unavailable BROWN LAZARO A Referring Unavailable BROWNAVALAZARO A Attending Unavailable HEMMERMARLA M Attending Unavailable NOEL FARNSWORTH B Attending Unavailable NOEL FARNSWORTH B Attending Unavailable SHERLYN RUCKER Attending Unavailable Sherlyn Rucker Attending Unavailable Noel Farnsworth Primary Care Unavailable Sherlyn Rucker Admitting Unavailable Emily Park Admitting Unavailable Emily Park Attending Unavailable Noel Farnsworth Primary Care Unavailable Allergies Allergy Classification Reported Allergen(s) Allergy Type Date of Onset Reaction(s) Facility (1 source) HUMPHREY; Translations: [ELVINFOAngeles-RIAZ] Propensity to adverse reactions (disorder) 11-12-200 9 [facility] Repository (13 sources) Chlorzoxazone; Translations: [Parafon Forte DSC TABS] Drug Allergy 8 Hives, Other (See Comments) [facility] (1 source) Parafon Forte DSC Drug allergy (disorder) 5 [facility] Repository (20 sources) Chlorzoxazone; Translations: [...] Take 1 tablet by mouth Daily Active azelastine hydrochloride 0.137 mg/actuat metered dose nasal spray (2 sources) Histamine-1 Receptor Antagonist Start: 025 End: take 1 spray(s) nasal route in the morning Azelastine HCl 137 MCG/SPRAY solution Indications: Seasonal allergies Administer 1 spray into affected nostril(s) in the morning and 1 spray before bedtime. Do all this for 14 days. 30 mL 08/07/2024 08/21/2024 Active azithromycin 250 mg oral tablet (2 sources) Macrolide Antimicrobial Start: End: take 2 tablets by mouth once daily, [...] 02-27-2023 cholecalcifero l (Vitamin D-3) 1.25 MG (82060 UT) capsule Indications: Vitamin D deficiency Take [...] daily. 0 Active omega-3 acid ethyl esters (shelter) 1000 mg oral capsule (1 source) End: 11-28-2023 take 1 capsule by mouth once daily omega-3 acid ethyl esters (Lovaza) 1 gram capsule Take 900 mg by mouth once daily. 11/28/2023 Discontinued (Therapy completed) Starks-3 Fatty Acids (Fish Oil) 1200 MG capsule delayed-release (20 sources) Starks-3 Fatty Ac ids (Fish Oil) 1200 MG capsule delayed-release Active Starks-3 Fatty Ac ids (Fish Oil) 1200 MG capsule delayed-release Fish Oil Active Starks-3 Fatty Ac ids (Fish Oil) 1200 MG capsule delayed-release Fish Oil 0 Active pantoprazole 40 mg delayed release oral tablet (20 sources) Proton Pump Inhibitor Start: 02-09-2020 take 1 tablet by mouth once daily pantoprazole (ProtoNix) 40 MG EC tablet Indications: Gastroesophageal reflux disease without esophagitis TAKE 1 TABLET BY MOUTH DAILY 100 tablet 3 11/06/2023 Active phenazopyridine hydrochloride 200 mg delayed release oral tablet (2 sources) Start: 08-07-2024 End: 08-09-2024 take 1 tablet by mouth three times daily as needed for muscle spasms phenazopyridine (Pyridium) 200 MG tablet Indications: Acute cystitis with hematuria Take 1 tablet (200 mg) by mouth 3 (three) times a day as needed for bladder spasms for up to 2 days 6 tablet 08/07/2024 08/09/2024 Active microencapsulated potassium chloride 20 meq extended [...] Quantity: 360 Refills: 3 Ordered: 23-Oct-2022 Mily Prabhakar MD Start : 09-May-2022 Active new meq Start: 11-06-2021 take 3 tablets by mo uth three times daily Potassium Chloride ER 10 MEQ Oral Tablet Extended Release TAKE 3 TABLETS BY MOUTH 3 TIMES A DAY Quantity: 810 Refills: 3 Ordered: 28-Nov-2021 Mily Prabhakar MD Start : 06-Nov-2021 Active Start: [...] Start: 05-29-2022 take 2 tablets by mo [facility] in the morning spironolactone (ALDACTONE) 25 mg tablet Take 2 tablets (50 mg total) by mouth in the morning. 05/29/2022 Active Start: 11-06-2021 take 1 tablet by toni once daily spironolactone (Aldactone) 25 mg tablet Indications: Essential hypertension TAKE 1 TABLET BY MOUTH DAILY 90 tablet 3 10/07/2023 Active sulfamethoxazole 800 mg / trimethoprim 160 mg oral tablet (7 sources) Dihydrofolate Reductase Inhibitor Antibacterial, Sulfonamide Antimicrobial Start: 08-07-2024 End: 08-14-2024 take 1 tablet by mouth once in the morning, then take 1 tablet by mouth once at bedtime sulfamethoxazole-trimethoprim (Bactrim DS) 800-160 MG per tablet Indications: Acute cystitis with hematuria Take 1 tablet by mouth in the morning and 1 tablet before bedtime. Do all this for 7 days. 14 tablet 08/07/2024 08/14/2024 Active Start: 03-12-2024 End: 01-09-2025 take 1 tablet by mouth once in the morning, then take 1 tablet by mouth once at bedtime sulfamethoxazole-trimethoprim (Bactrim D S) 800-160 MG per tablet Indications: Acute non-recurrent sinusitis, unspecified location Take 1 tablet by mouth in the morning and 1 tablet before bedtime. Do all this for 7 days. 14 tablet 03/12/2024 03/19/2024 Active tiZANidine 4 mg oral tablet (5 sources) Central alpha-2 Adrenergic Agonist Start: 07-07-2024 End: 07-17-2024 take 1 tablet by mouth once tiZANidine (Zanaflex) 4 MG tablet Indications: Cervical paraspinal muscle spasm Take 1 tablet (4 mg) by mouth every 12 (twelve) hours if needed for muscle spasms for up to 10 days 20 tablet 07/07/2024 Active torsemide 20 mg oral tablet (20 [...] tablet by mouth in the mo rning Turmeric 500 MG tablet Take 1 tablet by mouth in the morning. 0 Active take 1 tablet by mouth once key y Turmeric 500 MG Oral Tablet one daily Quantity: 0 Refills: 0 Ordered: 09-May-2022 DO Active turmeric root extract 500 mg tablet (2 sources) take 1 tablet by once daily turmeric root extract 500 mg tablet Take 1 tablet by mouth once daily. Active take 1 tablet by mouth once key y turmeric root extract 500 mg tablet Take 1 tablet by mouth once daily. 0 Active warfarin sodium 2.5 mg oral tablet (20 sources) Vitamin K Antagonist Start: 07-31-2024 warfarin (Coumadin) 2.5 MG tablet 07/31/2024 Active Start: 08-24-2020 warfarin (Coum shakila) 2.5 mg tablet Take by mouth. As directed by [place] [facility] 08/24/2020 Active Start: 08-24-2020 Warfarin Sodiu m 2.5 MG Oral Tablet Agnes manages warfarin at [facility] Quantity: 0 Refills: 0 [...] mg, Intra-articular, Once PRN Procedure, Starting on Ping 07/02/24 at 0957, For 1 dose Start: 01-02-2024 End: 01-02-2024 betamethasone acetate-betame thasone sodium phosphate (Celestone) injection 2 mL Start: 01-02-2024 End: 01-02-2024 2 mL, Intra-articular, Once PRN Procedure, Starting on Ping 01/02/24 at 0918, For 1 dose Fish Oil [...] 1 05/11/2024 07/07/2024 Discontinued (Duplicate order) Start: 09-27-2023 take 1 spray(s) nasa l route in [...] Quantity: 45 Refills: 3 Ordered: 09-May-2022 Mily Prabhakar MD Start : 06-Nov-2021 Active new [...] Translations: [Urge incontinence] Onset: 3 12-05-2022 Chronic Genitourinary symptoms and ill-defined conditions (2 sources) Dysuria; Translations: [Dysuria] 08-07-2024 Episodic Heart valve disorders (20 sources) Mitral valve [...] not specified as traumatic] 01-02-2024 Episodic Other connective tissue disease (2 sources) Cyst ; Translations: [Other specified soft tissue disorders] 08-07-2024 Episodic Other diseases of kidney and ureters [...] Translations: [Sensorineural hearing loss, unilateral] Onset: 0 09-27-2023 Chronic Other ear and sense organ disorders [...] metabolic disorders (20 sources) Body mass index 40+ - severely [...] Thyroid Problem Onset: 4 Urinary tract infections (6 sources) Acute cystitis; Translations: [Acute cystitis without [...] 5 12-05-2022 Episodic Other aftercare (4 sources) care home (current) use of anticoagulants; Translations: [ROLLER MAN (CURRENT) USE OF ANTICOAGULANTS] Onset: 8 Episodic Other aftercare (20 sources) Drug therapy finding; Translations: [Long-term (current) use of other medications] Onset: 3 01-11-2023 Episodic Other aftercare (1 source) Other long term care administrator (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; Translations: [OTH ROLLER MAN CURRENT DRUG THERAPY] Onset: 2 Episodic Other aftercare (1 source) oil heaterman (current) use of aspirin; Translations: [ROLLER MAN CURRENT USE OF ASPIRIN] Onset: 2 Episodic Other aftercare (20 sources) Taking high risk medication; Translations: [Other care home (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] Onset: 3 Resolved: 4 [...] Test Name Value Interpretation Reference Range Facility Urinalysis macro (dipstick) panel (U)on 08-07-2024 Bilirubin, UA Negative Negative - 4(70) +++ mg/dL [facility] Healthcare Blood, UA Positive Negative - 50 Binh/mcL [facility] Comment on above: trace [place] Glucose, UA Negative Negative - 1999(110) ++++ mg/dL [facility] Interpretation and review of laboratory results Abnormal [facility] re Ketones, UA Negative Negative - 160(16) ++++ mg/dL [facility] Leukocytes, UA Moderate Negative - 500+++ Ashu/mcL [facility] Nitrite, UA Negative Negative - Positive [facility] pH, UA 5 5 - [address] [facility] e Protein, UA Negative Negative - 1999(20) ++++ mg/dL [facility] Spec Grav, UA 1.005 1 - 1.03 [facility] Urobilinogen, UA 0.2 0.2 - 12 mg/dL [facility] ALL LIPID PROFILE (FASTING)o n 07-23-2024 CHOL HDL RATIO 2.6 [facility] hcare Comment on above: 3.3 - 4.4 LOW RISK 4.4 - 7.1 AVERAGE RISK 7.1 - 11.0 MODERATE RISK >11.0 HIGH RISK Cholesterol [Mass/Vol] 157 mg/dL NINF - 200 mg/dL [facility] Cholesterol in HDL [Mass/Vol] 60 mg/dL 40 - 60 mg/dL [facility] Comment on above: > or =60 mg/dl - LOW CARDIOVASCULAR RISK <40 mg/dl - HIGH CARDIOVASCULAR RISK Magnesium [Mass/Vol] 68.4 mg/dL [facility] Comment on above: <100 mg/dl OPTIMAL 100-129 mg/dl NEAR OR ABOVE OPTIMAL 130-159 mg/dl BORDERLINE HIGH 160-189 mg/dl HIGH >190 mg/dl VERY HIGH Magnesium [Mass/Vol] 28.6 mg/dL [facility] Triglyceride [Mass/Vol] 143 mg/dL NINF - 150 mg/dL [facility] e No Panel Informationon 07-02 Margaux Walker MA 07/02/2024 1:02 PM L Inj/Asp: R glenohumeral on 07/02/2024 9:57 AM Indications: pain Details: 25 G needle, ultrasound-guided Medications: 12 mg betamethasone acetate-betamethason e sodium phosphate 6 (3-3) MG/ML Consent was given by the patient. [facility] ALL THYROID STIM HORMONEon 0 06-09-2024 TSH Qn 2.111 m[IU]/L [facility] CMP (CMP) (FOR REMOTE FH C USE)on 06-09-2024 Albumin [Mass/Vol] 3.3 g/dL Low 3.4 - 5.0 g/dL NO [facility] ALBUMIN GLOBULIN RATIO 0.9 [facility] ALP [Catalytic activity/Vol] 77 U/L 46 - 116 U/L [facility] ALT [Catalytic activity/Vol] 23 U/L 14 - 59 U/L [facility] Anion gap [Moles/Vol] 12.2 mmol/L [facility] AST [Catalytic activity/Vol] 25 U/L 15 - 37 U/L [facility] Bilirubin [Mass/Vol] 1 mg/dL 0.2 - 1.0 mg/dL [facility] Calcium [Mass/Vol] 9.9 mg/dL 8.5 - 10. 1 mg/dL [facility] Chloride [Moles/Vol] 107 mmol/L 98 - 107 mmol/L [facility] CO2 [Moles/Vol] 27.5 mmol/L 21.0 - 32.0 mmol/L [facility] Creatinine [Mass/Vol] 0.87 mg/dL 0.55 - 1.02 mg/dL [facility] GFR/1.73 sq M.predicted CKD-EPI (S/P/Bld) [Vol rate/Area] >60 >=60 mL/min/1.73m 2 [facility] Globulin (S) [Mass/Vol] 3.6 g/dL [facility] Glucose [Mass/Vol] 89 mg/dL 74 - 106 mg/dL NO [facility] Interpretation and review of laboratory results Abnormal [facility] re Potassium [Moles/Vol] 4.7 mmol/L 3.5 - 5.1 mmol/L [facility] Protein [Mass/Vol] 6.9 g/dL 6.4 - 8.2 g/dL NO [facility] Sodium [Moles/Vol] 142 mmol/L 136 - 145 mmol/L [facility] TBH EGFR-NON AF BRUNEIAN >60 >=60 mL/min/1.73m 2 [facility] Urea nitrogen [Mass/Vol] 28 mg/dL High 7.0 - 18.0 mg/dL [facility] Urea nitrogen/Creatinine [Mass ratio] 32.2 mg/mg [facility] No Panel Informationon 06-09 [facility] URIC ACIDon 05-30-2024 Urate [Mass/Vol] 6.8 mg/dL Normal 2.5-7.0 [facility] Comment on above: Order Comment: FASTI NG:NO FASTING: NO Result Comment: Ther apeutic target for gout patients: <6.0 mg/dL Performed By: #### 9 05 #### [facility] [place] [id number] [facility], [address] [place] [address] Biology Adjunct Instructor: Jose Yao MD MM screening mammo BI w/CADo n 03-19-2024 MM screening mammo BI w/CAD [facility] [place] [address] [place] [address] Mammography Report Signed Patient: Marla Fiugeredo MR#: [id number] : 1955 Acct:[id number] Age/Sex: 68 / F ADM Date: 03/19/24 Loc: [place] Room: Type: [facility] Attending Dr: Sherlyn Rucker DO Copies to: [...] Erik Rodriguez M.D.03/19/2024 3:47 PM Dictation Location: DWS01 Transcribed By: AJ 03/19/24 1547 Dictated By: Erik Rodriguez MD 03/19/24 154 Signed By: 03/19/24 154 Normal [facility] Mammography reportOrdered By : Erik Rodriguez on 03-19-2024 Diagnostic imaging study [facility] [place] [address] Mammography Report Signed Patient: Marla Figueredo MR#: [id number] : 1955 Acct:[id number] Age/Sex: 68 / F ADM Date: 5 Loc: [place] Room: Type: [facility] Attending Dr: Sherlyn Rucker DO Copies to: MD Sherlyn Miller II, ~ Ordering Provider: Sherlyn Rucker DO Date of [...] Erik Rodriguez M.D.03/19/2024 3:47 PM Dictation Location: DWS01 Transcribed By: AJ 03/19/24 1547 Dictated By: Erik Rodriguez MD 03/19/24 154 Signed By: 03/19/24 8914 [facility] Work Phone: Urinalysis macro (dipstick) panel (U)on 03-12-2024 Bilirubin, UA Trace Negative - 4(70) +++ mg/dL [facility] Blood, UA Positive Negative - 50 Binh/mcL [facility] Glucose, UA Negative Negative - 1999(110) ++++ mg/dL [facility] Ketones, UA Negative Negative - 160(16) ++++ mg/dL [facility] Leukocytes, UA Trace Negative - 500+++ Ashu/mcL [facility] Nitrite, UA Negative Negative - Positive [facility] pH, UA 6 5 - 9 [facility] Protein, UA 3+ Negative - 1999(20) ++++ mg/dL [facility] Spec Grav, UA 1.015 1 - 1.03 [facility] Urobilinogen, UA 0.2 0.2 - 12 [facility]dL [facility] CBC (INCLUDES DIFF/PLT)on Basophils (Bld) [#/Vol] 0.018 10*3/uL Normal 0-200 [facility] Comment on above: Performed By: #### 7 01, 9128, 442 #### [facility] [place] [address] Biology Adjunct Instructor: Jose Yao MD Basophils/100 WBC (Bld) 0.3 % Normal [facility] Comment on above: Performed By: #### 7 93, 3799, 502 #### [facility] [place] [address] Biology Adjunct Instructor: Jose Yao MD Eosinophils (Bld) [#/Vol] 0.061 10*3/uL Normal 15-500 [facility] Comment on above: Performed By: #### 7 93, 0971, 851 #### [facility] [place] [address] Biology Adjunct Instructor: Jose Yao MD Eosinophils/100 WBC (Bld) 1.0 % Normal [facility] Comment on above: Performed By: #### 7 93, 0180, 139 #### [facility] of [address], [address] [place] [address] Biology Adjunct Instructor: Jose Yao MD Erythrocyte distribution width (RBC) [Ratio] 12.7 % Normal 11.0-15.0 [facility] Comment on above: Performed By: #### 7 93, 6399, 927 #### [facility] of [address], [address] [place] [address] Biology Adjunct Instructor: Jose Yao MD Hematocrit (Bld) [Volume fraction] 36.1 % Normal 35.0-45.0 [facility] Comment on above: Performed By: #### 7 93, 81, 927 #### [facility] of [address], [address] [place] [address] Biology Adjunct Instructor: Jose Yao MD Hemoglobin (Bld) [Mass/Vol] 11.4 g/dL Low 11.7-15.5 [facility] Comment on above: Performed By: #### 7 93, 02, 927 #### [facility] of [address], [address] [place] [address] Biology Adjunct Instructor: Jose Yao MD Lymphocytes (Bld) [#/Vol] 1.122 10*3/uL Normal 850-3900 [facility] Comment on above: Performed By: #### 7 93, 8453, 927 #### [facility] of [address], [address] [place] [address] Biology Adjunct Instructor: Jose Yao MD Lymphocytes/100 WBC (Bld) 18.4 % Normal [facility] Comment on above: Performed By: #### 7 93, 5713, 927 #### [facility] of [address], [address] [place] [address] Biology Adjunct Instructor: Jose Yao MD MCH (RBC) [Entitic mass] 28.2 pg Normal 27.0-33.0 [facility] Comment on above: Performed By: #### 7 93, 6339, 927 #### [facility] of [place] [address] Biology Adjunct Instructor: Jose Yao MD MCHC (RBC) [Mass/Vol] 31.6 [...] clinical condition. Performed By: #### 7 , 63, 927 #### [facility] [place] [address] Biology Adjunct Instructor: Jose Yao MD MCV (RBC) [Entitic vol] 89.4 fL Normal 80.0-100.0 [facility] Comment on above: Performed By: #### 7 , 38, 927 #### [facility] [place] [address] Biology Adjunct Instructor: Jose Yao MD Monocytes (Bld) [#/Vol] 0.415 10*3/uL Normal 200-950 [facility] Comment on above: Performed By: #### 7 , 05, 927 #### [facility] [place] [address] Biology Adjunct Instructor: Jose Yao MD Monocytes/100 WBC (Bld) 6.8 % Normal [facility] Comment on above: Performed By: #### 7 , 72, 927 #### [facility] [place] [address] Biology Adjunct Instructor: Jose Yao MD Neutrophils (Bld) [#/Vol] 4.484 10*3/uL Normal 7536-9351 [facility] Comment on above: Performed By: #### 7 , 99, 927 #### [facility] [place] [address] Biology Adjunct Instructor: Jose Yao MD Neutrophils/100 WBC (Bld) 73.5 % Normal [facility] Comment on above: Performed By: #### 7 , 83, 927 #### [facility] of [address], [address] [place] [address] Biology Adjunct Instructor: Jose Yao MD Platelet mean volume (Bld) [Entitic vol] 11.4 fL Normal 7.5-12.5 [facility] Comment on above: Performed By: #### 7 93, 6399, 927 #### [facility] of [address], [address] [place] [address] Biology Adjunct Instructor: Jose Yao MD Platelets (Bld) [#/Vol] 142 10*3/uL Normal 140-400 [facility] Comment on above: Performed By: #### 7 93, 63, 927 #### [facility] of [address], [address] [place] [address] Biology Adjunct Instructor: Jose Yao MD RBC (Bld) [#/Vol] 4.04 10*6/uL Normal 3.80-5.10 [facility] Comment on above: Performed By: #### 7 93, 63, 927 #### [facility] of [place] [address] Biology Adjunct Instructor: Jose Yao MD WBC (Bld) [#/Vol] 6.1 10*3/uL Normal 3.8-10.8 [facility] Comment on above: Performed By: #### 7 93, 59, 927 #### [facility] of [place] [address] Biology Adjunct Instructor: Jose Yao MD FOLATE, SERUMon 02-29-2024 Folate [Mass/Vol] ng/mL Normal [facility] Comment on above: Result Comment: Refe rence Range Low: <3.4 Borderline: 3.4-5.4 Normal: >5.4 Performed By: #### 7 93, 85, 927 #### [facility] of [address], [address] [place] [address] Biology Adjunct Instructor: Jose Yao MD RETICULOCYTE COUNTon 024 RETICULOCYTE COUNT, AUTOMATED 2.2 % Normal [facility] Comment on above: Order Comment: FASTI NG:NO FASTING: NO Performed By: #### 7 93, 6399, 927 #### [facility] [address], [address] [place] [address] Biology Adjunct Instructor: Jose Yao MD RETICULOCYTE, ABSOLUTE 500[address] cells/uL High [id number] [facility] Comment on above: Order Comment: FASTI NG:NO FASTING: NO Performed By: #### 7 93, 6399, 927 #### [facility] [address], [address] [place] [address] Biology Adjunct Instructor: Jose Yao MD VITAMIN B12on 02-29-2024 Cobalamin (Vitamin B12) [Mass/Vol] 1015 pg/mL Normal 200-1100 [facility] Comment on above: Performed By: #### 7 93, 6399, 927 #### [facility] [address], [address] [place] [address] Biology Adjunct Instructor: Jose Yao MD METRO VITAMIN B1, WHOLE BLOO Don 01-23-2024 VITAMIN B1 (THIAMINE), BLOOD 193.7 nmol/L 66.5 - 200.0 nmol/L [facility] Comment on above: This test was develo ped and its performance characteristics determined by [facility]. It has not been cleared or approved by the Food and Drug Administration. Performed at: [address] [id number] Plumber Supervisor: Bernice Gant MD, Phone: [phone] [facility] VITAM[facility] B12on 01-21-2024 Cobalamin (Vitamin B12) [Mass/Vol] 826 pg/mL 232 - 1245 pg/mL [facility] [employer] Comment on above: Performed at: [address] [id number] Plumber Supervisor: Bharat Cain PhD, Phone: [phone] [facility]1EQJ[facility] CENTERAssembla e ALL CBC WITH AUTO DIFFon BASOPHILS ABSOLUTE AUTO 0 [facility] Basophils/100 WBC (Bld) 0.5 % 0.2 - 2.0 % [facility] Eosinophils/100 WBC (Bld) 1.5 % 0.9 - 7.0 % [facility] Erythrocyte distribution width (RBC) [Ratio] 14.2 % 11.0 - 15.0 % [facility] Hematocrit (Bld) [Volume fraction] 35.2 % Low 36.0 - 48.0 % [facility] e Hemoglobin (Bld) [Mass/Vol] 10.8 g/dL Low 12.0 - 16.0 g/dL [facility] IMMATURE GRANULOCYTES ABS AUTO 0.02 [facility] Immature granulocytes/100 WBC (Bld) 0.3 % 0.0 - 0.5 % [facility] Interpretation and review of laboratory results Abnormal [facility] LYMPHOCYTES ABSOLUTE AUTO 1.1 Low [facility] Lymphocytes/100 WBC (Bld) 17.6 % Low 20.5 - 60.0 % [facility] MCH (RBC) [Entitic mass] 28.5 pg 26.7 - 34.0 pg [facility] MCHC (RBC) [Mass/Vol] 30.7 g/dL 29.9 - 35.2 g/dL [facility] MCV (RBC) [Entitic vol] 92.9 fL 81.0 - 99.0 fL [facility] MONOCYTES ABSOLUTE AUTO 0.3 [facility] Monocytes/100 WBC (Bld) 5.2 % 1.7 - 12.0 % [facility] NEUTROPHILS ABSOLUTE AUTO 4.6 [facility] Neutrophils/100 WBC (Bld) 74.9 % 43.0 - 75.0 % [facility] Platelet mean volume (Bld) [Entitic vol] 10.7 fL 9.5 - 13.5 fL [facility] TBH EO # 0.1 [facility] PLT [address] [facility] e TB RBC 3.[address] [facility] e [facility] WBC 6.[address] [facility] e [facility] e ALL FOLIC ACIDon 01-20-2024 FOLATE 21.3 ng/mL 8.60 - 58.90 ng/mL [facility] ALL MAGNESIUMon 01-20-2024 Magnesium [Mass/Vol] 2.2 mg/dL 1.8 - 2.4 mg/dL [facility] ALL PHOSPHOROUSon 01-20-2024 Phosphate [Mass/Vol] 2.8 mg/dL 2.6 - 4.7 mg/dL [facility] CMP (CMP) (FOR REMOTE FH C USE)on 01-20-2024 Albumin [Mass/Vol] 3 g/dL Low 3.4 - 5.0 g/dL NO [facility] ALBUMIN GLOBULIN RATIO 0.9 [facility] ALP [Catalytic activity/Vol] 77 U/L 46 - 116 U/L [facility] ALT [Catalytic activity/Vol] 23 U/L 14 - 59 U/L [facility] Anion gap [Moles/Vol] 13.2 mmol/L [facility] AST [Catalytic activity/Vol] 18 U/L 15 - 37 U/L [facility] Bilirubin [Mass/Vol] 1 mg/dL 0.2 - 1.0 mg/dL [facility] Calcium [Mass/Vol] 9.9 mg/dL 8.5 - 10. 1 mg/dL [facility] Chloride [Moles/Vol] 109 mmol/L High 98 - 107 mmol/L [facility] CO2 [Moles/Vol] 23.9 mmol/L 21.0 - 32.0 mmol/L [facility] Creatinine [Mass/Vol] 0.91 mg/dL 0.55 - 1.02 mg/dL [facility] GFR/1.73 sq M.predicted CKD-EPI (S/P/Bld) [Vol rate/Area] >60 >=60 mL/min/1.73m 2 [facility] Globulin (S) [Mass/Vol] 3.3 g/dL [facility] Glucose [Mass/Vol] 91 mg/dL 74 - 106 mg/dL NO [facility] Interpretation and review of laboratory results Abnormal [facility] Potassium [Moles/Vol] 4.1 mmol/L 3.5 - 5.1 mmol/L [facility] Protein [Mass/Vol] 6.3 g/dL Low 6.4 - 8.2 g/dL NO [facility] Sodium [Moles/Vol] 142 mmol/L 136 - 145 mmol/L [facility] TBH EGFR-NON AF BRUNEIAN >60 >=60 mL/min/1.73m 2 [facility] Urea nitrogen [Mass/Vol] 29 mg/dL High 7.0 - 18.0 mg/dL [facility] Urea nitrogen/Creatinine [Mass ratio] 31.9 mg/mg [facility] FERRITINon 01-20-2024 Ferritin [Mass/Vol] 604 ng/mL High 8.0 - 25 2.0 ng/mL [facility] Interpretation and review of laboratory results Abnormal [facility] METRO IRON AND TIBCon 2023 Interpretation and review of laboratory results Abnormal [facility] TBH IRON 54 ug/dL 50.0 - 170.0 ug/dL [facility] TB PERCENT IRON SATURATION 21.9 % [facility] TOTAL IRON BINDING CAPACITY 247 ug/dL Low 250.0 - 450.0 ug/dL [facility] No Panel Informationon 01-19 [facility] TBH VITAMIN D 25 OHon 2023 VITAMIN D 57.9 ng/mL [facility] e Comment on above: <20 ng/mL Vit [...] MG/ML Consent was given by the patient. [facility] XR Shoulder - right 2 Viewso n 01-02-2024 Imaging Result: 4 views right shoulder, Grashey/Zanca/outlet /axillary, taken today and saved to the permanent medical record are reviewed. ACI WNL. No arthritic changes at GH joint. Cystic change in greater tuberosity. Mild AC joint narrowing. Type 1 [facility]. [facility] Study observation (narrative) [facility] ALL CBC WITH AUTO DIFFon BASOPHILS ABSOLUTE AUTO 0.0 [facility] Basophils/100 WBC (Bld) 0.2 % 0.2 - 2.0 % [facility] Eosinophils/100 WBC (Bld) 0.3 % Low 0.9 - 7.0 % [facility] Erythrocyte distribution width (RBC) [Ratio] 13.9 % 11.0 - 15.0 % [facility] Hematocrit (Bld) [Volume fraction] 38.0 % 36.0 - 48.0 % [facility] Hemoglobin (Bld) [Mass/Vol] 11.7 g/dL Low 12.0 - 16.0 g/dL [facility] IMMATURE GRANULOCYTES ABS AUTO 0.03 [facility] Immature granulocytes/100 WBC (Bld) 0.3 % 0.0 - 0.5 % [facility] Interpretation and review of laboratory results Abnormal [facility] re LYMPHOCYTES ABSOLUTE AUTO 1.6 [facility] Lymphocytes/100 WBC (Bld) 17.3 % Low 20.5 - 60.0 % [facility] MCH (RBC) [Entitic mass] 28.1 pg 26.7 - 34.0 pg [facility] MCHC (RBC) [Mass/Vol] 30.8 g/dL 29.9 - 35.2 g/dL [facility] MCV (RBC) [Entitic vol] 91.3 fL 81.0 - 99.0 fL [facility] MONOCYTES ABSOLUTE AUTO 0.6 [facility] Monocytes/100 WBC (Bld) 6.4 % 1.7 - 12.0 % [facility] NEUTROPHILS ABSOLUTE AUTO 7.0 High [facility] Neutrophils/100 WBC (Bld) 75.5 % High 43.0 - 75.0 % [facility] Platelet mean volume (Bld) [Entitic vol] 10.8 fL 9.5 - 13.5 fL [facility] TBH EO # 0.0 [facility] e TBH PLT 136 Low [facility] e TBH RBC 4.16 Low [facility] e TBH WBC 9.3 [facility] Office Visit (Cardiology)on 10-23-2022 Follow-up [...] Metabolic Panel; Status:Active - Retrospective Authorization; Requested for:[id number]; Complete Blood Count; Status:Active - Retrospective Authorization; Requested for:[id number]; Class 2 severe obesity with serious comorbidity and body mass index (BMI) of 39.0 to 39.9 in adult Healthy Weight Tips; Status:Complete - Retrospective Authorization; Done: [id number] Some eating tips that can help you lose weight.; Status:Complete - Retrospective Authorization; Done: [id number] Edema of both legs Renew: Torsemide 20 [...] Metabolic Panel; Status:Active - Retrospective Authorization; Requested for:[id number]; Complete Blood Count; Status:Active - Retrospective Authorization; Requested for:[id number]; Essential hypertension, Permanent atrial fibrillation Renew: Metoprolol Tartrate 25 MG Oral Tablet; TAKE 1 TABLET TWICE DAILY SocHx: Former smoker Tobacco Use Screening; Status:Complete; Done: [id number] Patient Instructions Please bring all medicines, vitamins, [...] fibrillation managed by the Coumadin clinic at [facility]. Her weight is couple pounds [...] Coumadin managed by the Coumadin clinic at [facility]. 2?essential hypertension under control on metoprolol. 3? history of severe lower extremity edema improved on medical therapy. We will continue triple diuretics and follow renal function closely.. 4?morbid obesity status post bariatric surgery but remains in class II obesity, more aggressive weight loss was recommended 5?high risk medication with anticoagulation with no bleeding problems. 6?nuclear stress test in [place] several years ago was normal, no need [...] NEEDED. Magnesium (more content not included)... Normal First Opinion Tobacco Screening.on 023 Fall risk assessment a) No falls within the last year [facility] [email or web address] 250 DO Work Phone: Tobacco use status CP b) No [facility] [employer] 250 DO Work Phone: CBC AUTO DIFFon 08-02-2022 BASO # 0.0 103/ul Normal 0.0-0.1 [facility] Comment on above: Performed By: #### P T, PTT #### [facility] [address] [place] [address] Dr. Rey Stewart Basophils/100 WBC (Bld) 0.4 % Normal 0.2-2.0 [facility] Comment on above: Performed By: #### P T, PTT #### [facility] [address] [place] [address] Dr. Rey Stewart EO # 0.0 103/ul Normal 0.0-0.7 [facility] Comment on above: Performed By: #### P T, PTT #### [facility] [address] [place] [address] Dr. Rey Stewart Eosinophils/100 WBC (Bld) 0.4 % Critically low 0.9-7.0 [facility] Comment on above: Performed By: #### P T, PTT #### [facility] [address] [place] [address] Dr. Rey Stewart Erythrocyte distribution width (RBC) [Ratio] 13.9 % Normal 11.0-15.0 [facility] Comment on above: Performed By: #### P T, PTT #### [facility] [address] [place] [address] Dr. Rey Stewart Hematocrit (Bld) [Volume fraction] 37.6 % Normal 36.0-48.0 [facility] Comment on above: Performed By: #### P T, PTT #### [facility] [address] [place] [address] Dr. Rey Stewart Hemoglobin (Bld) [Mass/Vol] 12.1 g/dL Normal 12.0-16.0 [facility] Comment on above: Performed By: #### P T, PTT #### [facility] [address] [place] [address] Dr. Rey Stewart IG # 0.04 10e3/ul Critically high 0.00-0.03 [facility] Comment on above: Performed By: #### P T, PTT #### [facility] [address] [place] [address] Dr. Rey Stewart IG % 0.6 % Critically high 0.0-0.5 [facility] Comment on above: Performed By: #### P T, PTT #### [facility] [address] [address] [address] Rey Stewart LYMPH # 1.4 103/ul Normal 1.2-3.8 [facility] Comment on above: Performed By: #### P T, PTT #### [facility] [address] [place] [address] Dr. Rey Stewart Lymphocytes/100 WBC (Bld) 19.4 % Critically low 20.5-60.0 [facility] Comment on above: Performed By: #### P T, PTT #### [facility] [address] [place] [address] Dr. Rey Stewart MANUAL DIFF REQ NO Normal [facility] Comment on above: Performed By: #### P T, PTT #### [facility] [address] [place] [address] Dr. Rey Stewart MCH (RBC) [Entitic mass] 28.7 pg Normal 26.7-34.0 [facility] Comment on above: Performed By: #### P T, PTT #### [facility] [address] [place] [address] Dr. Rey Stewart MCHC (RBC) [Mass/Vol] 32.2 g/dL Normal 29.9-35.2 [facility] Comment on above: Performed By: #### P T, PTT #### [facility] [address] [place] [address] Dr. Rey Stewart MCV (RBC) [Entitic vol] 89.1 fL Normal 81.0-99.0 [facility] Comment on above: Performed By: #### P T, PTT #### [facility] [address] [place] [address] Dr. Rey Stewart MONO # 0.4 103/ul Normal 0.3-0.8 [facility] Comment on above: Performed By: #### P T, PTT #### [facility] [address] [place] [address] Dr. Rey Stewart Monocytes/100 WBC (Bld) 5.7 % Normal 1.7-12.0 [facility] Comment on above: Performed By: #### P T, PTT #### [facility] [address] [place] [address] Dr. Rey Stewart NEUT # 5.3 103/ul Normal 1.4-6.5 [facility] Comment on above: Performed By: #### P T, PTT #### [facility] [address] [place] [address] Dr. Rey Stewart Neutrophils/100 WBC (Bld) 73.5 % Normal 43.0-75.0 [facility] Comment on above: Performed By: #### P T, PTT #### [facility] [address] [place] [address] Dr. Rey Steawrt Platelet mean volume (Bld) [Entitic vol] 9.8 fL Normal 9.5-13.5 [facility] Comment on above: Performed By: #### P T, PTT #### [facility] [address] [place] [address] Dr. Rey Stewart PLT 182 103/ul Normal 150-450 [facility] Comment on above: Performed By: #### P T, PTT #### [facility] [address] [place] [address] Dr. Rey Stewart RBC 4.22 106/ul Normal 4.20-5.40 [facility] Comment on above: Performed By: #### P T, PTT #### [facility] [address] [place] [address] Dr. Rey Stewart WBC 7.2 103/ul Normal 4.0-11.0 [facility] Comment on above: Performed By: #### P T, PTT #### [facility] [address] [place] [address] Dr. Rey Stewart FERRITINon 08-02-2022 Ferritin [Mass/Vol] 628.0 ng/mL Critically high 8.0-252.0 [facility] Comment on above: Performed By: #### B MP #### [facility] [address] [place] [address] Dr. Rey Stewart IRONon 08-02-2022 Iron [Mass/Vol] 43.0 ug/dL Critically low 50.0-170.0 [facility] Comment on above: Performed By: #### B MP #### [facility] [address] [place] [address] Dr. Rey Stewart MAGNESIUMon 08-02-2022 Magnesium [Mass/Vol] 1.7 mg/dL Critically low 1.8-2.4 [facility] Comment on above: Performed By: #### M G #### [facility] [address] [place] [address] Dr. Rey Stewart PTH INTACTon 06-06-2022 PTH, Intact 123 pg/mL Critically high 15-65 [facility] Comment on above: Performed By: #### P T, PTT #### [facility] [address] [place] [address] Dr. Rey Stewart PROF CHEM 8 (BAS METB)on Anion gap [Moles/Vol] 12.0 mmol/L Normal [facility] Comment on above: Performed By: #### B MP #### [facility] [address] [place] [address] Dr. Rey Stewart Calcium [Mass/Vol] 10.3 mg/dL Critically high 8.5-10.1 [facility] Comment on above: Performed By: #### B MP #### [facility] [address] [place] [address] Dr. Rey Stewart Chloride [Moles/Vol] 104 mmol/L Normal 98-107 [facility] Comment on above: Performed By: #### B MP #### [facility] [address] [place] [address] Dr. Rey Stewart CO2 [Moles/Vol] 32.7 mmol/L Critically high 21.0-32.0 [facility] Comment on above: Performed By: #### B MP #### [facility] [address] [address] [address] Rey Stewart Creatinine [Mass/Vol] 0.79 mg/dL Normal 0.55-1.02 [facility] Comment on above: Performed By: #### B MP #### [facility] [address] [place] [address] Dr. Rey Stewart EGFR-AF BRUNEIAN >60 Normal >=60 [facility] Comment on above: Performed By: #### B MP #### [facility] [address] [address] [address] Rey Stewart EGFR-NON AF BRUNEIAN >60 Normal >=60 [facility] Comment on above: Performed By: #### B MP #### [facility] [address] [address] [address] Rey Stewart Glucose [Mass/Vol] 94 mg/dL Normal 74-106 [facility] Comment on above: Performed By: #### B MP #### [facility] [address] [place] [address] Dr. Rey Stewart Potassium [Moles/Vol] 3.7 mmol/L Normal 3.5-5.1 [facility] Comment on above: Performed By: #### B MP #### [facility] [address] [address] [address] Rey Stewart Sodium [Moles/Vol] 145 mmol/L Normal 136-145 [facility] Comment on above: Performed By: #### B MP #### [facility] [address] [place] [address] Dr. Rey Stewart Urea nitrogen [Mass/Vol] 33.0 mg/dL Critically high 7.0-18.0 [facility] Comment on above: Performed By: #### B MP #### [facility] [address] [place] [address] Dr. Rey Stewart Urea nitrogen/Creatinine [Mass ratio] 41.8 mg/mg Normal [facility] Comment on above: Performed By: #### B MP #### [facility] [address] [place] [address] Dr. Rey Stewart VITAMIN D 25 OHon 06-05-2022 VIT D 25-OH 76.2 ng/mL Normal [facility] Comment on above: Performed By: #### V ITAD #### [facility] [address] [id number] Rey Stewart VIT D RANGES SEE BELOW Normal [facility] Comment on above: Result Comment: <20 ng/mL Vit D deficient 20 - <30 ng/mL Vit D insufficient 30 - 100 ng/mL Vit D sufficient >100 ng/mL Potential Toxicity Performed By: #### V ITAD #### [facility] [address] [place], [place] [address] Dr. Rey Stewart Office Visit (Cardiology)on 05-09-2022 [...] Coumadin managed by the Coumadin clinic at [facility]. 2?essential hypertension under control on [...] no bleeding problems. 6?nuclear stress test in [place] several years ago was normal, no need [...] 2.5 MG Oral [facility] Zinc 50 MG Oral TabletTAKE 1 TABLET DAILY. Allergies Medication Parafon Forte DSC TABS Allergy; Hives;; Recorded By: Judie Shelley; 03/15/2021 1:41:07 PM Social History Problems Caffeine use (V49.89) (Z78 (more content not included)... Normal [facility] CBC AUTO DIFFon 04-24-2022 BASO # 0.0 103/ul Normal 0.0-0.1 [facility] Comment on above: Performed By: #### B MP #### [facility] [address] [address] [address] Rey Stewart Basophils/100 WBC (Bld) 0.4 % Normal 0.2-2.0 [facility] Comment on above: Performed By: #### B MP #### [facility] [address] [address] [address] Rey Stewart EO # 0.0 103/ul Normal 0.0-0.7 [facility] Comment on above: Performed By: #### B MP #### [facility] [address] [address] [address] Rey Stewart Eosinophils/100 WBC (Bld) 0.6 % Critically low 0.9-7.0 [facility] Comment on above: Performed By: #### B MP #### [facility] [address] [address] [address] Rey Stewart Erythrocyte distribution width (RBC) [Ratio] 14.3 % Normal 11.0-15.0 [facility] Comment on above: Performed By: #### B MP #### [facility] [address] [place] [address] Dr. Rey Stewart Hematocrit (Bld) [Volume fraction] 37.5 % Normal 36.0-48.0 [facility] Comment on above: Performed By: #### B MP #### [facility] [address] [place] [address] Dr. Rey Stewart Hemoglobin (Bld) [Mass/Vol] 11.7 g/dL Critically low 12.0-16.0 [facility] Comment on above: Performed By: #### B MP #### [facility] [address] [place] [address] Dr. Rey Stewart IG # 0.02 10e3/ul Normal 0.00-0.03 [facility] Comment on above: Performed By: #### B MP #### [facility] [address] [place] [address] Dr. Rey Stewart IG % 0.3 % Normal 0.0-0.5 [facility] Comment on above: Performed By: #### B MP #### [facility] [address] [place] [address] Dr. Rey Stewart LYMPH # 1.4 103/ul Normal 1.2-3.8 [facility] Comment on above: Performed By: #### B MP #### [facility] [address] [place] [address] Dr. Rey Stewart Lymphocytes/100 WBC (Bld) 20.4 % Critically low 20.5-60.0 [facility] Comment on above: Performed By: #### B MP #### [facility] [address] [place] [address] Dr. Rey Stewart MANUAL DIFF REQ NO Normal [facility] Comment on above: Performed By: #### B MP #### [facility] [address] [place] [address] Dr. Rey Stewart MCH (RBC) [Entitic mass] 27.9 pg Normal 26.7-34.0 [facility] Comment on above: Performed By: #### B MP #### [facility] [address] [place] [address] Dr. Rey Stewart MCHC (RBC) [Mass/Vol] 31.2 g/dL Normal 29.9-35.2 [facility] Comment on above: Performed By: #### B MP #### [facility] [address] [place] [address] Dr. Rey Stewart MCV (RBC) [Entitic vol] 89.5 fL Normal 81.0-99.0 [facility] Comment on above: Performed By: #### B MP #### [facility] [address] [place] [address] Dr. Rey Stewart MONO # 0.5 103/ul Normal 0.3-0.8 [facility] Comment on above: Performed By: #### B MP #### [facility] [address] [place] [address] Dr. Rey Stewart Monocytes/100 WBC (Bld) 7.1 % Normal 1.7-12.0 [facility] Comment on above: Performed By: #### B MP #### [facility] [address] [place] [address] Dr. Rey Stewart NEUT # 5.0 103/ul Normal 1.4-6.5 [facility] Comment on above: Performed By: #### B MP #### [facility] [address] [place] [address] Dr. Rey Stewart Neutrophils/100 WBC (Bld) 71.2 % Normal 43.0-75.0 [facility] Comment on above: Performed By: #### B MP #### [facility] [address] [place] [address] Dr. Rey Stewart Platelet mean volume (Bld) [Entitic vol] 10.3 fL Normal 9.5-13.5 [facility] Comment on above: Performed By: #### B MP #### [facility] [address] [address] [address] Rey Stewart PLT 145 103/ul Critically low 150-450 [facility] Comment on above: Performed By: #### B MP #### [facility] [address] [address] [address] Rey Stewart RBC 4.19 106/ul Critically low 4.20-5.40 [facility] Comment on above: Performed By: #### B MP #### [facility] [address] [address] [address] Rey Stewart WBC 7.1 103/ul Normal 4.0-11.0 [facility] Comment on above: Performed By: #### B MP #### [facility] [address] [place] [address] Dr. Rey Stewart IRONon 04-24-2022 Iron [Mass/Vol] 35.0 ug/dL Critically low 50.0-170.0 [facility] Comment on above: Performed By: #### I DURAN #### [facility] [address] [place] [address] Dr. Rey Stewart MAGNESIUMon 04-24-2022 Magnesium [Mass/Vol] 1.8 mg/dL Normal 1.8-2.4 [facility] Comment on above: Performed By: #### B MP, MG #### [facility] [address] [place] [address] Dr. Rey Stewart PROF CHEM 8 (BAS METB)on Anion gap [Moles/Vol] 10.0 mmol/L Normal [facility] Comment on above: Performed By: #### B MP, MG #### [facility] [address] [place] [address] Dr. Rey Stewart Calcium [Mass/Vol] 10.1 mg/dL Normal 8.5-10.1 [facility] Comment on above: Performed By: #### B MP, MG #### [facility] [address] [place] [address] Dr. Rey Stewart Chloride [Moles/Vol] 103 mmol/L Normal 98-107 [facility] Comment on above: Performed By: #### B MP, MG #### [facility] [address] [address] [address] Rey Stewart CO2 [Moles/Vol] 29.7 mmol/L Normal 21.0-32.0 [facility] Comment on above: Performed By: #### B MP, MG #### [facility] [address] [address] [address] Rey Stewart Creatinine [Mass/Vol] 0.91 mg/dL Normal 0.55-1.02 [facility] Comment on above: Performed By: #### B MP, MG #### [facility] [address] [address] [address] Rey Stewart EGFR-AF BRUNEIAN >60 Normal >=60 [facility] Comment on above: Performed By: #### B MP, MG #### [facility] [address] [address] [address] Rey Stewart EGFR-NON AF BRUNEIAN >60 Normal >=60 [facility] Comment on above: Performed By: #### B MP, MG #### [facility] [address] [address] [address] Rey Stewart Glucose [Mass/Vol] 89 mg/dL Normal 74-106 [facility] Comment on above: Performed By: #### B MP, MG #### [facility] [address] [address] [address] Rey Stewart Potassium [Moles/Vol] 3.7 mmol/L Normal 3.5-5.1 [facility] Comment on above: Performed By: #### B MP, MG #### [facility] [address] [address] [address] Rey Stewart Sodium [Moles/Vol] 139 mmol/L Normal 136-145 [facility] Comment on above: Performed By: #### B MP, MG #### [facility] [address] [address] [address] Rey Stewart Urea nitrogen [Mass/Vol] 20.0 mg/dL Critically high 7.0-18.0 [facility] Comment on above: Performed By: #### B MP, MG #### [facility] [address] [place] [address] Dr. Rey Stewart Urea nitrogen/Creatinine [Mass ratio] 22.0 mg/mg Normal [facility] Comment on above: Performed By: #### B MP, MG #### [facility] [address] [place] [address] Dr. Rey Stewart VITAMIN B1 (THIAMINE)on Vit. B1, Whole Blood 223.9 nmol/L Critically high 66.5-200.0 [facility] Comment on above: Performed By: #### V ITB1T #### [facility] [address] [place] [address] Dr. Rey Stewart COPPER, SERUM or PLASMAon Copper, Serum 135 ug/dL Normal 80-158 [facility] Comment on above: Result Comment: Dete ction Limit = 5 Performed By: #### P T, PTT #### [facility] [address] [place] [address] Dr. Rey Stewart ZINC SERUM OR PLASMAon 02-07 Zinc, Plasma or Serum 67 ug/dL Normal 44-115 [facility] Comment on above: Result Comment: Dete ction Limit = 5 Performed By: #### Z inc #### [facility] [address] [place] [address] Dr. Rey Stewart CBC AUTO DIFFon 02-05-2022 BASO # 0.0 103/ul Normal 0.0-0.1 [facility] Comment on above: Performed By: #### B MP #### [facility] [address] [place] [address] Dr. Rey Stewart Basophils/100 WBC (Bld) 0.7 % Normal 0.2-2.0 [facility] Comment on above: Performed By: #### B MP #### [facility] [address] [place] [address] Dr. Rey Stewart EO # 0.0 103/ul Normal 0.0-0.7 [facility] Comment on above: Performed By: #### B MP #### [facility] [address] [place] [address] Dr. Rey Stewart Eosinophils/100 WBC (Bld) 0.4 % Critically low 0.9-7.0 [facility] Comment on above: Performed By: #### B MP #### [facility] [address] [place] [address] Dr. Rey Stewart Erythrocyte distribution width (RBC) [Ratio] 13.9 % Normal 11.0-15.0 [facility] Comment on above: Performed By: #### B MP #### [facility] [address] [place] [address] Dr. Rey Stewart Hematocrit (Bld) [Volume fraction] 34.5 % Critically low 36.0-48.0 [facility] Comment on above: Performed By: #### B MP #### [facility] [address] [place] [address] Dr. Rey Stewart Hemoglobin (Bld) [Mass/Vol] 10.8 g/dL Critically low 12.0-16.0 [facility] Comment on above: Performed By: #### B MP #### [facility] [address] [place] [address] Dr. Rey Stewart IG # 0.01 10e3/ul Normal 0.00-0.03 [facility] Comment on above: Performed By: #### B MP #### [facility] [address] [place] [address] Dr. Rey Stewart IG % 0.2 % Normal 0.0-0.5 [facility] Comment on above: Performed By: #### B MP #### [facility] [address] [place] [address] Dr. Rey Stewart LYMPH # 1.0 103/ul Critically low 1.2-3.8 [facility] Comment on above: Performed By: #### B MP #### [facility] [address] [place] [address] Dr. Rey Stewart Lymphocytes/100 WBC (Bld) 21.7 % Normal 20.5-60.0 [facility] Comment on above: Performed By: #### B MP #### [facility] [address] [place] [address] Dr. Rey Stewart MANUAL DIFF REQ NO Normal [facility] Comment on above: Performed By: #### B MP #### [facility] [address] [place] [address] Dr. Rey Stewart MCH (RBC) [Entitic mass] 28.0 pg Normal 26.7-34.0 [facility] Comment on above: Performed By: #### B MP #### [facility] [address] [place] [address] Dr. Rey Stewart MCHC (RBC) [Mass/Vol] 31.3 g/dL Normal 29.9-35.2 [facility] Comment on above: Performed By: #### B MP #### [facility] [address] [place] [address] Dr. Rey Stewart MCV (RBC) [Entitic vol] 89.4 fL Normal 81.0-99.0 [facility] Comment on above: Performed By: #### B MP #### [facility] [address] [place] [address] Dr. Rey Stewart MONO # 0.4 103/ul Normal 0.3-0.8 [facility] Comment on above: Performed By: #### B MP #### [facility] [address] [place] [address] Dr. Rey Stewart Monocytes/100 WBC (Bld) 9.3 % Normal 1.7-12.0 [facility] Comment on above: Performed By: #### B MP #### [facility] [address] [place] [address] Dr. Rey Stewart NEUT # 3.1 103/ul Normal 1.4-6.5 [facility] Comment on above: Performed By: #### B MP #### [facility] [address] [place] [address] Dr. Rey Stewart Neutrophils/100 WBC (Bld) 67.7 % Normal 43.0-75.0 [facility] Comment on above: Performed By: #### B MP #### [facility] [address] [address] [address] Rey Stewart Platelet mean volume (Bld) [Entitic vol] 10.2 fL Normal 9.5-13.5 [facility] Comment on above: Performed By: #### B MP #### [facility] [address] [address] [address] Rey Stewart PLT 152 103/ul Normal 150-450 [facility] Comment on above: Performed By: #### B MP #### [facility] [address] [address] [address] Rey Stewart RBC 3.86 106/ul Critically low 4.20-5.40 [facility] Comment on above: Performed By: #### B MP #### [facility] [address] [place] [address] Dr. Rey Stewart WBC 4.6 103/ul Normal 4.0-11.0 [facility] Comment on above: Performed By: #### B MP #### [facility] [address] [address] [address] Rey Stewart FERRITINon 02-05-2022 Ferritin [Mass/Vol] 680.0 ng/mL Critically high 8.0-252.0 [facility] Comment on above: Performed By: #### P T, PTT #### [facility] [address] [address] [address] Rey Stewart IRON AND TIBCon 02-05-2022 % SATURATION 10.6 % Normal [facility] Comment on above: Performed By: #### P T, PTT #### [facility] [address] [address] [address] Rey Stewart Iron [Mass/Vol] 28.0 ug/dL Critically low 50.0-170.0 [facility] Comment on above: Performed By: #### P T, PTT #### [facility] [address] [place] [address] Dr. Rey Stewart TIBC DIRECT 263.0 ug/dL Normal 250.0-450.0 [facility] Comment on above: Performed By: #### P T, PTT #### [facility] [address] [place] [address] Dr. Rey Stewart MAGNESIUMon 02-05-2022 Magnesium [Mass/Vol] 1.4 mg/dL Critically low 1.8-2.4 [facility] Comment on above: Performed By: #### B MP #### [facility] [address] [place] [address] Dr. eRy Stewart PHOSPHORUSon 02-05-2022 Phosphate [Mass/Vol] 2.9 mg/dL Normal 2.6-4.7 [facility] Comment on above: Performed By: #### B MP #### [facility] [address] [place] [address] Dr. Rey Stewart PROF 14(COMP METB)on 022 Albumin [Mass/Vol] 3.1 g/dL Critically low 3.4-5.0 [facility] e [facility] Comment on above: Performed By: #### B MP #### [facility] [address] [place] [address] Dr. Rey Stewart Albumin/Globulin [Mass ratio] 0.8 {ratio} Normal [facility] Comment on above: Performed By: #### B MP #### [facility] [address] [place] [address] Dr. Rey Stewart ALP [Catalytic activity/Vol] 60 U/L Normal 46-116 [facility] Comment on above: Performed By: #### B MP #### [facility] [address] [place] [address] Dr. Rey Stewart ALT [Catalytic activity/Vol] 18 U/L Normal 14-59 [facility] Comment on above: Performed By: #### B MP #### [facility] [address] [place] [address] Dr. Rey Stewart Anion gap [Moles/Vol] 8.9 mmol/L Normal [facility] Comment on above: Performed By: #### B MP #### [facility] [address] [place] [address] Dr. Rey Stewart AST [Catalytic activity/Vol] 24 U/L Normal 15-37 [facility] Comment on above: Performed By: #### B MP #### [facility] [address] [address] [address] Rey Stewart Bilirubin [Mass/Vol] 0.9 mg/dL Normal 0.2-1.0 [facility] Comment on above: Performed By: #### B MP #### [facility] [address] [address] [address] Rey Stewart Calcium [Mass/Vol] 9.8 mg/dL Normal 8.5-10.1 [facility] Comment on above: Performed By: #### B MP #### [facility] [address] [address] [address] Rey Stewart Chloride [Moles/Vol] 100 mmol/L Normal 98-107 [facility] Comment on above: Performed By: #### B MP #### [facility] [address] [address] [address] Rey Stewart CO2 [Moles/Vol] 32.7 mmol/L Critically high 21.0-32.0 [facility] Comment on above: Performed By: #### B MP #### [facility] [address] [address] [address] Rey Stewart Creatinine [Mass/Vol] 1.02 mg/dL Normal 0.55-1.02 [facility] Comment on above: Performed By: #### B MP #### [facility] [address] [address] [address] Rey Stewart EGFR-AF BRUNEIAN >60 Normal >=60 [facility] Comment on above: Performed By: #### B MP #### [facility] [address] [address] [address] Rey Stewart EGFR-NON AF BRUNEIAN 54 mL/min/1.73m2 Critically low >=60 [facility] Comment on above: Performed By: #### B MP #### [facility] [address] [address] [address] Rey Stewart Globulin (S) [Mass/Vol] 4.1 g/dL Normal [facility] Comment on above: Performed By: #### B MP #### [facility] [address] [address] [address] Rey Stewart Glucose [Mass/Vol] 96 mg/dL Normal 74-106 [facility] Comment on above: Performed By: #### B MP #### [facility] [address] [address] [address] Rey Stewart Potassium [Moles/Vol] 3.6 mmol/L Normal 3.5-5.1 [facility] Comment on above: Performed By: #### B MP #### [facility] [address] [place] [address] Dr. Rey Stewart Protein [Mass/Vol] 7.2 g/dL Normal 6.4-8.2 [facility] Comment on above: Performed By: #### B MP #### [facility] [address] [address] [address] Rey Stewart Sodium [Moles/Vol] 138 mmol/L Normal 136-145 [facility] Comment on above: Performed By: #### B MP #### [facility] [address] [place] [address] Dr. Rey Stewart Urea nitrogen [Mass/Vol] 28.0 mg/dL Critically high 7.0-18.0 [facility] Comment on above: Performed By: #### B MP #### [facility] [address] [address] [address] Rey Stewart Urea nitrogen/Creatinine [Mass ratio] 27.5 mg/mg Normal [facility] Comment on above: Performed By: #### B MP #### [facility] [address] [address] [address] Rey Stewart VIT B12 AND FOLATEon 022 Cobalamin (Vitamin B12) [Mass/Vol] 1002.0 pg/mL Critically high 193.0-986.0 [facility] Comment on above: Performed By: #### P T, PTT #### [facility] [address] [address] [address] Rey Stewart FOLATE 20.30 ng/mL Normal 8.60-58.90 [facility] Comment on above: Performed By: #### P T, PTT #### [facility] [address] [place] [address] Dr. Rey Stewart VITAMIN D 25 OHon 02-05-2022 VIT D 25-OH 73.5 ng/mL Normal [facility] Comment on above: Performed By: #### P T, PTT #### [facility] [address] [place] [address] Dr. Rey Stewart VIT D RANGES SEE BELOW Normal [facility] Comment on above: Result Comment: <20 ng/mL Vit D deficient 20 - <30 ng/mL Vit D insufficient 30 - 100 ng/mL Vit D sufficient >100 ng/mL Potential Toxicity Performed By: #### P T, PTT #### [facility] [address] [place] [address] Dr. Rey Stewart PROF CHEM 8 (BAS METB)on Anion gap [Moles/Vol] 7.5 mmol/L Normal [facility] Comment on above: Performed By: #### P T, PTT #### [facility] [address] [place] [address] Dr. Rey Stewart Calcium [Mass/Vol] 10.1 mg/dL Normal 8.5-10.1 [facility] Comment on above: Performed By: #### P T, PTT #### [facility] [address] [place] [address] Dr. Rey Stewart Chloride [Moles/Vol] 101 mmol/L Normal 98-107 [facility] Comment on above: Performed By: #### P T, PTT #### [facility] [address] [place] [address] Dr. Rey Stewart CO2 [Moles/Vol] 34.1 mmol/L Critically high 21.0-32.0 [facility] Comment on above: Performed By: #### P T, PTT #### [facility] [address] [place] [address] Dr. Rey Stewart Creatinine [Mass/Vol] 0.85 mg/dL Normal 0.55-1.02 [facility] Comment on above: Performed By: #### P T, PTT #### [facility] [address] [address] [address] Rey Stewart EGFR-AF BRUNEIAN >60 Normal >=60 [facility] Comment on above: Performed By: #### P T, PTT #### [facility] [address] [place] [address] Dr. Rey Stewart EGFR-NON AF BRUNEIAN >60 Normal >=60 [facility] Comment on above: Performed By: #### P T, PTT #### [facility] [address] [address] [address] Rey Stewart Glucose [Mass/Vol] 77 mg/dL Normal 74-106 [facility] Comment on above: Performed By: #### P T, PTT #### [facility] [address] [address] [address] Rey Stewart Potassium [Moles/Vol] 3.6 mmol/L Normal 3.5-5.1 [facility] Comment on above: Performed By: #### P T, PTT #### [facility] [address] [place] [address] Dr. Rey Stewart Sodium [Moles/Vol] 139 mmol/L Normal 136-145 [facility] Comment on above: Performed By: #### P T, PTT #### [facility] [address] [place] [address] Dr. Rey Stewart Urea nitrogen [Mass/Vol] 26.0 mg/dL Critically high 7.0-18.0 [facility] Comment on above: Performed By: #### P T, PTT #### [facility] [address] [place] [address] Dr. Rey Stewart Urea nitrogen/Creatinine [Mass ratio] 30.6 mg/mg Normal [facility] Comment on above: Performed By: #### P T, PTT #### [facility] [address] [place] [address] HEAD WO CONon [...] HARPREET QUINTERO Date: 2021-11-10 14:33 Normal [facility] PROTIMEon 11-10-2021 INR Coag (PPP) [Relative time] 2.75 {INR} Normal [facility] Comment on above: Performed By: #### P T, PTT #### [facility] [address] [place] [address] Dr. Rey Stewart INR GUIDELINES SEE BELOW Normal [facility] Comment on above: Result Comment: MOUNIKA RED INR: 2.0 - 3.0 CONDITIONS NOT LISTED BELOW 2.5 - 3.5 FOR PROSTHETIC HEART VALVE REPLACEMENT 2.5 - 3.5 RECURRENT THROMBOSIS Performed By: #### P T, PTT #### [facility] [address] [place] [address] Dr. Rey Stewart PT Coag (PPP) [Time] 27.8 s Critically high 9.0-11.6 [facility] Comment on above: Performed By: #### P T, PTT #### [facility] [address] [place] [address] Dr. Rey Stewart PTTon 11-10-2021 aPTT Coag (Bld) [Time] 48.4 s Critically high 22.3-36.2 [facility] Comment on above: Performed By: #### P T, PTT #### [facility] [address] [place] [address] Dr. Rey Stewart POTASSIUMon 11-09-2021 Potassium [Moles/Vol] 3.4 mmol/L Critically low 3.5-5.1 [facility] Comment on above: Performed By: #### B MP #### [facility] [address] [address] [address] Rye Stewart PROF CHEM 8 (BAS METB)on Anion gap [Moles/Vol] 9.7 mmol/L Normal [facility] Comment on above: Performed By: #### P T, PTT #### [facility] [address] [place] [address] Dr. Rey Stewart Calcium [Mass/Vol] 10.2 mg/dL Critically high 8.5-10.1 [facility] Comment on above: Performed By: #### P T, PTT #### [facility] [address] [address] [address] Rey Stewart Chloride [Moles/Vol] 98 mmol/L Normal 98-107 [facility] Comment on above: Performed By: #### P T, PTT #### [facility] [address] [place] [address] Dr. Rey Stewart CO2 [Moles/Vol] 36.0 mmol/L Critically high 21.0-32.0 [facility] Comment on above: Performed By: #### P T, PTT #### [facility] [address] [place] [address] Dr. Rey Stewart Creatinine [Mass/Vol] 0.99 mg/dL Normal 0.55-1.02 [facility] Comment on above: Performed By: #### P T, PTT #### [facility] [address] [place] [address] Dr. Rey Stewart EGFR-AF BRUNEIAN >60 Normal >=60 [facility] Comment on above: Performed By: #### P T, PTT #### [facility] [address] [address] [address] Rey Stewart EGFR-NON AF BRUNEIAN 56 mL/min/1.73m2 Critically low >=60 [facility] Comment on above: Performed By: #### P T, PTT #### [facility] [address] [place] [address] Dr. Rey Stewart Glucose [Mass/Vol] 98 mg/dL Normal 74-106 [facility] Comment on above: Performed By: #### P T, PTT #### [facility] [address] [address] [address] Rey Stewart Potassium [Moles/Vol] 2.6 mmol/L Critically low 3.5-5.1 [facility] Comment on above: Performed By: #### P T, PTT #### [facility] [address] [address] [address] Rey Stewart Sodium [Moles/Vol] 139 mmol/L Normal 136-145 [facility] Comment on above: Performed By: #### P T, PTT #### [facility] [address] [address] [address] Rey Stewart Urea nitrogen [Mass/Vol] 37.0 mg/dL Critically high 7.0-18.0 [facility] Comment on above: Performed By: #### P T, PTT #### [facility] [address] [address] [address] Rey Stewart Urea nitrogen/Creatinine [Mass ratio] 37.4 mg/mg Normal [facility] Comment on above: Performed By: #### P T, PTT #### [facility] [address] [address] [address] Rey Stewart Office Visit (Cardiology)on 11-01-2021 [...] Weight Tips; Status:Complete - Retrospective Authorization; Done: [id number] Some eating tips that can help you lose weight.; Status:Complete - Retrospective Authorization; Done: [id number] SocHx: Former smoker Tobacco Use Screening; Status:Complete; Done: [id number] Unlinked Stop: metOLazone 5 MG Oral Tablet [...] and call office with update. Dr. Mily Prabhakar MD will decide if rx if [...] therapy managed by the Coumadin clinic at [facility]. She does have chronic lower [...] Coumadin managed by the Coumadin clinic at [facility]. We agreed to pursue rate [...] no bleeding problems. 6?nuclear stress test in [place] several years ago [...] 2.5 MG Oral [facility]tBellevue manages warfarin at [facility] (more content not included)... Normal First Opinion Tobacco Screening.on Fall risk assessment a) No falls within the last year [facility] [employer] 250 DO Work Phone: Tobacco use status CPHS b) No [facility] [employer] 250 DO Work Phone: Tobacco Screening.on Adult depression screening assessment No [facility] [employer] 250 DO Work Phone: Fall risk assessment a) No falls within the last year [facility] [employer] 250 DO Work Phone: Tobacco use status CP b) No [facility] [employer] Perez DO Work Phone: Vital Signs Date Time Vital Sign Value Performing Clinician Facility 08-07-2024 12:39-0400 Body height 162.6 cm Marla Hemmer PA Work Phone: [facility] 08-07-2024 12:39-0400 Body mass index (BMI) [Ratio] 41.37 kg/m2 Marla Hemmer PA Work Phone: [facility] 08-07-2024 12:39-0400 Body temperature 97.5 [degF] Marla Hemmer PA Work Phone: [facility] 08-07-2024 12:39-0400 Body weight 109.32 kg Marla Hemmer PA Work Phone: [facility] 08-07-2024 12:39-0400 Diastolic blood pressure 78 mm[Hg] Marla Hemmer PA Work Phone: [facility] 08-07-2024 12:39-0400 Heart rate 63 /min Marla Hemmer PA Work Phone: [facility] 08-07-2024 12:39-0400 SaO2% (BldA) [Mass fraction] 97 % Marla Hemmer PA Work Phone: [facility] 08-07-2024 12:39-0400 Systolic blood pressure 118 mm[Hg] Marla Hemmer PA Work Phone: [facility] 07-07-2024 09:38-0400 Body height 162.6 cm Marla Hemmer PA Work Phone: [facility] 07-07-2024 09:38-0400 Body mass index (BMI) [Ratio] 41.33 kg/m2 Marla Hemmer PA Work Phone: [facility] 07-07-2024 09:38-0400 Body weight 109.23 kg Marla Hemmer PA Work Phone: [facility] 07-07-2024 09:38-0400 Diastolic blood pressure 76 mm[Hg] Marla Hemmer PA Work Phone: [facility] 07-07-2024 09:38-0400 Heart rate 58 /min Marla Hemmer PA Work Phone: [facility] 07-07-2024 09:38-0400 Respiratory rate 16 /min Marla Hemmer PA Work Phone: [facility] 07-07-2024 09:38-0400 SaO2% (BldA) [Mass fraction] 95 % Marla Hemmer PA Work Phone: [facility] 07-07-2024 09:38-0400 Systolic blood pressure 112 mm[Hg] Marla Hemmer PA Work Phone: [facility] 07-02-2024 09:39-0400 Body height 162.6 cm Lazaro Borrero DO Work Phone: [facility] 07-02-2024 09:39-0400 Body mass index (BMI) [Ratio] 42.57 kg/m2 Lazaro Borrero DO Work Phone: [facility] 07-02-2024 09:39-0400 Body weight 112.49 kg Lazaro Borrero DO Work Phone: [facility] 06-24-2024 13:32-0400 Body height 162.6 cm Emily Park [employer] Work Phone: [facility] 06-24-2024 13:32-0400 Body mass index (BMI) [Ratio] 42.64 kg/m2 Emily Park [employer] Work Phone: [facility] 06-24-2024 13:32-0400 Body weight 112.67 kg Emily Park [employer] Work Phone: [facility] 06-24-2024 13:32-0400 Diastolic blood pressure 62 mm[Hg] Emily Park [employer] Work Phone: [facility] 06-24-2024 13:32-0400 Heart rate 62 /min Emily Pakr [employer] Work Phone: [facility] 06-24-2024 13:32-0400 Respiratory rate 16 /min Emily Park [employer] Work Phone: [facility] 06-24-2024 13:32-0400 SaO2% (BldA) [Mass fraction] 98 % Emily Park [employer] Work Phone: [facility] 06-24-2024 13:32-0400 Systolic blood pressure 104 mm[Hg] Emily Park [employer] Work Phone: [facility] 06-23-2024 09:37-0400 Body mass index (BMI) [Ratio] 41.49 kg/m2 Trung Rivas MD Work Phone: [facility] 06-23-2024 09:37-0400 Body weight 113.08 kg Trung Rivas MD Work Phone: [facility] 06-23-2024 09:37-0400 Diastolic blood pressure 70 mm[Hg] Trung Rivas MD Work Phone: [facility] 06-23-2024 09:37-0400 Systolic blood pressure 124 mm[Hg] Trung Rivas MD Work Phone: [facility] 04-30-2024 13:08-0500 Body height 162.6 cm Emily Park [employer] Work Phone: [facility] 04-30-2024 13:08-0500 Body mass index (BMI) [Ratio] 43.08 kg/m2 Emily Park [employer] Work Phone: [facility] 04-30-2024 13:08-0500 Body weight 113.85 kg Emily Park [employer] Work Phone: [facility] 04-30-2024 13:08-0500 Diastolic blood pressure 72 mm[Hg] Emily Park [employer] Work Phone: [facility] 04-30-2024 13:08-0500 Heart rate 69 /min Emily Park [employer] Work Phone: [facility] 04-30-2024 13:08-0500 SaO2% (BldA) [Mass fraction] 94 % Emily Park [employer] Work Phone: [facility] 04-30-2024 13:08-0500 Systolic blood pressure 128 mm[Hg] Emily Park [employer] Work Phone: [facility] 04-16-2024 15:26-0500 Body height 162.6 cm Emily Park [employer] Work Phone: [facility] 04-16-2024 15:26-0500 Body temperature 97.39 [degF] Emily Park [employer] Work Phone: [facility] 04-16-2024 15:26-0500 Diastolic blood pressure 72 mm[Hg] Emily Park [employer] Work Phone: [facility] 04-16-2024 15:26-0500 Heart rate 68 /min Emily Park [employer] Work Phone: [facility] 04-16-2024 15:26-0500 Systolic blood pressure 128 mm[Hg] Emily Park [employer] Work Phone: [facility] 03-18-2024 09:38-0500 Body mass index (BMI) [Ratio] 41.88 kg/m2 Sherlyn Rinkes DO Work Phone: [facility] 03-18-2024 09:38-0500 Body weight 110.68 kg Sherlyn Rinkes DO Work Phone: [facility] 03-18-2024 09:38-0500 Diastolic blood pressure 78 mm[Hg] Sherlyn Rinkes DO Work Phone: [facility] 03-18-2024 09:38-0500 Systolic blood pressure 136 mm[Hg] Sherlyn Rinkes DO Work Phone: [facility] 03-12-2024 09:08-0500 Body height 162.6 cm Noel Farnsworth MD Work Phone: [facility] 03-12-2024 09:08-0500 Body mass index (BMI) [Ratio] 42.57 kg/m2 Noel Farnsworth MD Work Phone: [facility] 03-12-2024 09:08-0500 Body temperature 97.81 [degF] Noel Farnsworth MD Work Phone: [facility] 03-12-2024 09:08-0500 Body weight 112.49 kg Noel Farnsworth MD Work Phone: [facility] 03-12-2024 09:08-0500 Diastolic blood pressure 70 mm[Hg] Noel Farnsworth MD Work Phone: [facility] 03-12-2024 09:08-0500 Heart rate 76 /min Noel Farnsworth MD Work Phone: [facility] 03-12-2024 09:08-0500 Systolic blood pressure 122 mm[Hg] Noel Farnsworth MD Work Phone: [facility] 02-28-2024 08:55-0500 Body height 162.6 cm Noel Farnsworth MD Work Phone: [facility] 02-28-2024 08:55-0500 Body mass index (BMI) [Ratio] 42.74 kg/m2 Noel Farnsworth MD Work Phone: [facility] 02-28-2024 08:55-0500 Body temperature 96.91 [degF] Noel Farnsworth MD Work Phone: [facility] 02-28-2024 08:55-0500 Body weight 112.95 kg Noel Farnsworth MD Work Phone: [facility] 02-28-2024 08:55-0500 Diastolic blood pressure 70 mm[Hg] Noel Farnsworth MD Work Phone: [facility] 02-28-2024 08:55-0500 Heart rate 76 /min Noel Farnsworth MD Work Phone: [facility] 02-28-2024 08:55-0500 SaO2% (BldA) [Mass fraction] 97 % Noel Farnsworth MD Work Phone: [facility] 02-28-2024 08:55-0500 Systolic blood pressure 126 mm[Hg] Noel Farnsworth MD Work Phone: [facility] 01-03-2024 12:02-0400 Body height 162.6 cm Marla Strickland PA Work Phone: [facility] 01-03-2024 12:02-0400 Body mass index (BMI) [Ratio] 41.37 kg/m2 Marla Hemmer PA Work Phone: [facility] 01-03-2024 12:02-0400 Body temperature 98.4 [degF] Marla Hemmer PA Work Phone: [facility] 01-03-2024 12:02-0400 Body weight 109.32 kg Marla Hemmer PA Work Phone: [facility] 01-03-2024 12:02-0400 Diastolic blood pressure 66 mm[Hg] Marla Hemmer PA Work Phone: [facility] 01-03-2024 12:02-0400 Heart rate 64 /min Marla Hemmer PA Work Phone: [facility] 01-03-2024 12:02-0400 Respiratory rate 16 /min Marla Hemmer PA Work Phone: [facility] 01-03-2024 12:02-0400 SaO2% (BldA) [Mass fraction] 96 % Marla Hemmer PA Work Phone: [facility] 01-03-2024 12:02-0400 Systolic blood pressure 104 mm[Hg] Marla Hemmer PA Work Phone: [facility] 01-02-2024 09:00-0400 Body height 162.6 cm Lazaro Borrero DO Work Phone: [facility] 01-02-2024 09:00-0400 Body mass index (BMI) [Ratio] 41.88 kg/m2 Lazaro Borrero DO Work Phone: [facility] 01-02-2024 09:00-0400 Body weight 110.68 kg Lazaro Borrero DO Work Phone: [facility] 11-28-2023 09:41-0400 Body height 165.1 cm Mily Prabhakar MD Work Phone: [facility] 11-28-2023 09:41-0400 Body mass index (BMI) [Ratio] 40.6 kg/m2 Mily Prabhakar MD Work Phone: [facility] 11-28-2023 09:41-0400 Body weight 110.68 kg Mily Prabhakar MD Work Phone: [facility] 11-28-2023 09:41-0400 Diastolic blood pressure 60 mm[Hg] Mily Prabhakar MD Work Phone: [facility] 11-28-2023 09:41-0400 Heart rate 66 /min Mily Prabhakar MD Work Phone: [facility] 11-28-2023 09:41-0400 Systolic blood pressure 102 mm[Hg] Mily Prabhakar MD Work Phone: [facility] 10-29-2023 09:37-0400 Body mass index (BMI) [Ratio] 41.92 kg/m2 Denisha Herron [employer] Work Phone: [facility] 10-29-2023 09:37-0400 Body weight 110.77 kg Denisha Herron [employer] Work Phone: [facility] 10-29-2023 09:37-0400 Diastolic blood pressure 75 mm[Hg] Denisha Herron [employer] Work Phone: [facility] 10-29-2023 09:37-0400 Heart rate 50 /min Denisha Herron [employer] Work Phone: [facility] 10-29-2023 09:37-0400 Respiratory rate 16 /min Denisha Herron [employer] Work Phone: [facility] 10-29-2023 09:37-0400 SaO2% (BldA) [Mass fraction] 98 % Denisha Herron [employer] Work Phone: [facility] 10-29-2023 09:37-0400 Systolic blood pressure 120 mm[Hg] Denisha Herron [employer] Work Phone: [facility] 05-13-2023 14:42-0500 Diastolic blood pressure 60 mm[Hg] Mily Prabhakar MD Work Phone: [facility] 05-13-2023 14:42-0500 Systolic blood pressure 110 mm[Hg] Mily Prabhakar MD Work Phone: [facility] 05-13-2023 14:20-0500 Body height 165.1 cm Mily Prabhakar MD Work Phone: [facility] 05-13-2023 14:20-0500 Body mass index (BMI) [Ratio] 39.94 kg/m2 Mily Prabhakar MD Work Phone: [facility] 05-13-2023 14:20-0500 Body weight 108.86 kg Mily Prabhakar MD Work Phone: [facility] 05-13-2023 14:20-0500 Heart rate 56 /min Mily Prabhakar MD Work Phone: [facility] 04-17-2023 14:08-0500 Body height 162.6 cm Noel Farnsworth MD Work Phone: [facility] 04-17-2023 14:08-0500 Body mass index (BMI) [Ratio] 41.37 kg/m2 Noel Farnsworth MD Work Phone: [facility] 04-17-2023 14:08-0500 Body temperature 98.71 [degF] Noel Farnsworth MD Work Phone: [facility] 04-17-2023 14:08-0500 Body weight 109.32 kg Noel Farnsworth MD Work Phone: [facility] 04-17-2023 14:08-0500 Diastolic blood pressure 80 mm[Hg] Noel Farnsworth MD Work Phone: [facility] 04-17-2023 14:08-0500 Heart rate 82 /min Noel Farnsworth MD Work Phone: [facility] 04-17-2023 14:08-0500 SaO2% (BldA) [Mass fraction] 98 % Noel Farnsworth MD Work Phone: [facility] 04-17-2023 14:08-0500 Systolic blood pressure 128 mm[Hg] Noel Farnsworth MD Work Phone: [facility] 10-23-2022 11:59-0400 Body height 165.1 cm Noel Farnsworth Work Phone: [facility] 250 DO Work Phone: 10-23-2022 11:59-0400 Body mass index (BMI) [Ratio] 39.44 kg/m2 Noel Farnsworth Work Phone: [facility] 250 DO Work Phone: 10-23-2022 11:59-0400 Body surface area Derived from formula 2.13 m2 Noel Farnsworth Work Phone: [facility] 250 DO Work Phone: 10-23-2022 11:59-0400 Body weight 107.5 kg Noel Farnsworth Work Phone: [facility] 250 DO Work Phone: 10-23-2022 11:59-0400 Diastolic blood pressure 68 mm[Hg] Noel Farnsworth Work Phone: [facility] 250 DO Work Phone: 10-23-2022 11:59-0400 Heart rate 72 /min Noel Farnsworth Work Phone: [facility] 250 DO Work Phone: 10-23-2022 11:59-0400 Systolic blood pressure 110 mm[Hg] Noel Farnsworth Work Phone: [facility] 250 DO Work Phone: 11-01-2021 09:33-0400 Body height 165.1 cm Mily Prabhakar MD Work Phone: [facility] 250 DO Work Phone: 11-01-2021 09:33-0400 Body mass index (BMI) [Ratio] 41.81 kg/m2 Mily Prabhakar MD Work Phone: [facility] 250 DO Work Phone: 11-01-2021 09:33-0400 Body surface area Derived from formula 2.18 m2 Mily Prabhakar MD Work Phone: [facility] 250 DO Work Phone: 11-01-2021 09:33-0400 Body weight 113.97 kg Mily Prabhakar MD Work Phone: [facility] 250 DO Work Phone: 11-01-2021 09:33-0400 Diastolic blood pressure 62 mm[Hg] Mily Prabhakar MD Work Phone: [facility] 250 DO Work Phone: 11-01-2021 09:33-0400 Heart rate 60 /min Mily Prabhakar MD Work Phone: [facility] 250 DO Work Phone: 11-01-2021 09:33-0400 Systolic blood pressure 108 mm[Hg] Mily Prabhakar MD Work Phone: [facility] 250 DO Work Phone: 04-26-2021 11:21-0500 Body height 165.1 cm Mily Prabhakar MD Work Phone: [facility] 250 DO Work Phone: 04-26-2021 11:21-0500 Body mass index (BMI) [Ratio] 42.77 kg/m2 Mily Prabhakar MD Work Phone: [facility] 250 DO Work Phone: 04-26-2021 11:21-0500 Body surface area Derived from formula 2.2 m2 Mily Prabhakar MD Work Phone: [facility] 250 DO Work Phone: 04-26-2021 11:21-0500 Body weight 116.58 kg Mily Prabhakar MD Work Phone: [facility] 250 DO Work Phone: 04-26-2021 11:21-0500 Diastolic blood pressure 84 mm[Hg] Mily Prabhakar MD Work Phone: [facility] 250 DO Work Phone: 04-26-2021 11:21-0500 Heart rate 59 /min Mily Prabhakar MD Work Phone: [facility] 250 DO Work Phone: 04-26-2021 11:21-0500 Systolic blood pressure 113 mm[Hg] Mily Prabhakar MD Work Phone: [facility] 250 DO Work Phone: Encounters Encounter Date Encounter Type Care Provider Facility Start: 08-07-2024 End: 08-07-2024 Office outpatient visit 25 minutes Marla WILSON Work Phone: [facility] Comment on above: Dysuria (Primary Dx) ; Acute cystitis with hematuria; Seasonal allergies; Cyst of soft tissue Start: 08-07-2024 ambulatory Emily Park Facility:[facility] Start: 07-23-2024 End: 07-23-2024 Clinisync Result Encounter Marla WILSON Work Phone: [facility] Unsolicited Start: 07-23-2024 End: 07-23-2024 Clinisync Result Encounter Marla WILSON Work Phone: [facility] Unsolicited Start: 07-07-2024 End: 07-07-2024 Bamboo flowsheet Marla WILSON Work Phone: [facility] Start: 07-07-2024 End: 07-07-2024 Bamboo flowsheet Marla WILSON Work Phone: [facility] Start: 07-07-2024 End: 07-07-2024 Patient encounter procedure Marla WILSON Work Phone: [facility] Comment on above: Medicare annual [facility] visit, subsequent (Primary Dx); ACP (advance care planning); Elevated AST (SGOT); Other problems related to lifestyle; Primary hypertension ([facility]/HCC); Neck pain; Bilateral carpal tunnel syndrome; Lumbar [...] anterior shoulder pain; Senile osteoporosis (CMS/HCC); Hyperparathyroidism ([facility]/HCC); Morbid obesity ([facility]/HCC); Non-toxic multinodular goiter ([facility]/HCC); BMI 40.0-44.9, adult ([facility]/HCC); Subclinical hypothyroidism ([facility]/HCC); Vitamin B-complex deficiency; Vitamin D deficiency; Other iron deficiency anemia; Thrombocytopenia (CMS/HCC); Other chronic sinusitis; Anticoagulated; Elevated levels of [...] ear Start: 07-07-2024 End: 07-07-2024 ambulatory MARLA Lester EUGENE Not Available Start: 07-02-2024 End: 07-02-2024 Bamboo flowsheet Lazaro Borrero DO Work Phone: [facility] Start: 07-02-2024 End: 07-02-2024 Bamboo flowsheet Lazaro Espino Rukhsana DO Work Phone: [facility] Start: 07-02-2024 End: 07-02-2024 Patient encounter procedure Lazaro Espino Rukhsana DO Work Phone: [facility] Comment on above: Complete tear of rig ht rotator cuff, unspecified whether traumatic (Primary Dx) Start: 07-02-2024 End: 07-02-2024 ambulatory LAZARO A RUKHSANA Not Available Start: 06-24-2024 End: 06-24-2024 Bamboo flowsheet Emily Park [employer] Work Phone: [facility] Start: 06-24-2024 End: 06-24-2024 Bamboo flowsheet Emily Park [employer] Work Phone: [facility] Start: 06-24-2024 End: 06-24-2024 Office outpatient visit 25 minutes Emily Park [employer] Work Phone: [facility] Comment on above: Acute frontal sinusi tis, recurrence not specified (Primary Dx); PND (post-nasal drip) Start: 06-24-2024 End: 06-24-2024 ambulatory EMILY PARK Not Available Start: 06-23-2024 End: 06-23-2024 Office outpatient visit 25 minutes Trung Rivas MD Work Phone: [facility], A Department of [facility] Comment on above: Subclinical hypothyr oidism (Primary Dx); Vitamin D deficiency; Age-related osteoporosis without current pathological fracture Start: 06-23-2024 End: 06-23-2024 [facility] Start: 06-09-2024 End: 06-09-2024 Clinisync Result Encounter Generic External Data Provider [facility] Unsolicited Start: 06-09-2024 End: 06-09-2024 Clinisync Result Encounter Generic External Data Provider [facility] Unsolicited Start: 05-28-2024 End: 05-28-2024 ambulatory EMILY PARK Not Available Start: 04-30-2024 End: 04-30-2024 Bamboo flowsheet Emily Park [employer] Work Phone: [facility] Start: 04-30-2024 End: 04-30-2024 Bamboo flowsheet Emily Park [employer] Work Phone: [facility] Start: 04-30-2024 End: 04-30-2024 ambulatory EMILY PARK Not Available Start: 04-30-2024 End: 04-30-2024 Office outpatient visit 25 minutes Emily Park [employer] Work Phone: [facility] Comment on above: Cellulitis, unspecif ied cellulitis site (Primary Dx) Start: 04-16-2024 End: 04-16-2024 Office outpatient visit 25 minutes Emily Park [employer] Work Phone: [facility] Comment on above: Acute non-recurrent sinusitis, unspecified location (Primary Dx); Edema of lower extremity; Bariatric surgery status; Unspecified atrial fibrillation (CMS/HCC); Morbid (severe) obesity due to excess calories (CMS/HCC); Body mass index (BMI) 40.0-44.9, adult (CMS/HCC) Start: 04-16-2024 End: 04-16-2024 ambulatory EMILY PARK Not Available Start: 04-16-2024 End: 04-16-2024 Bamboo flowsheet Emily Park [employer] Work Phone: [facility] Start: 04-16-2024 End: 04-16-2024 Bamboo flowsheet Emily Park [employer] Work Phone: [facility] Start: 03-19-2024 End: 03-19-2024 Patient encounter procedure Noel Farnsworth II Work Phone: [facility] Work Phone: Start: 03-19-2024 End: 03-19-2024 ambulatory Noel Farnsworth II Work Phone: [facility] Work Phone: Start: 03-18-2024 End: 03-18-2024 Bamboo flowsheet Sherlyn E Rinkes DO Work Phone: [facility] Start: 03-18-2024 End: 03-18-2024 Bamboo flowsheet Sherlyn E Rinkes DO Work Phone: [facility] Start: 03-18-2024 End: 03-18-2024 Office outpatient visit 25 minutes Sherlyn E Rinkes DO Work Phone: [facility] Comment on above: Vaginal atrophy; Encounter for mammogram to establish baseline mammogram Start: 03-18-2024 End: 03-18-2024 ambulatory SHERLYN E RINKES Not Available Start: 03-12-2024 End: 03-12-2024 Bamboo [...] [facility] Start: 02-28-2024 End: 02-28-2024 Bamboo bianca Farnsworth MD Work Phone: [facility] [...] Start: 01-03-2024 End: 01-03-2024 Bamboo flowsheet Marla Strickland PA Work Phone: [facility] Start: 01-03-2024 End: 01-03-2024 Bamboo flowsheet Marla Strickland PA Work Phone: [facility] Start: 01-03-2024 End: 01-03-2024 Office outpatient visit 25 minutes Marla WILSON Work Phone: [facility] Comment on above: Acute URI (Primary D x); Laryngitis; Longstanding persistent atrial fibrillation (CMS/HCC); Right ear impacted cerumen Start: 01-03-2024 End: 01-03-2024 ambulatory MARLA STRICKLAND Not Available Start: 01-02-2024 End: 01-02-2024 Patient encounter procedure Lazaro Borrero DO Work Phone: [facility] Comment on above: Complete tear of rig ht rotator cuff, unspecified whether traumatic (Primary Dx) Start: 01-02-2024 End: 01-02-2024 ambulatory LAZARO BORRERO Not Available Start: 01-02-2024 End: 01-02-2024 ambulatory LAZARO BORRERO Not Available Start: 11-28-2023 End: 11-28-2023 ambulatory MILY Batista [facility] Ambulatory Start: 11-28-2023 End: 11-28-2023 Office outpatient visit 25 minutes Mily Prabhakar MD Work Phone: [facility] Comment on above: Permanent atrial fib rillation with RVR (Multi) (Primary Dx); Anticoagulated; Essential hypertension; Obstructive sleep apnea syndrome; Iron deficiency anemia, unspecified iron deficiency anemia type; Former smoker; BMI 39.0-39.9,adult; Cellulitis of right lower extremity; High risk medication use Start: 11-01-2023 End: 11-01-2023 Clinisync Result Encounter Denisha Herron NP Work Phone: [facility] Unsolicited Start: 11-01-2023 End: 11-01-2023 Clinisync Result Encounter Denisha Herron NP Work Phone: [facility] Unsolicited Start: 10-29-2023 End: 10-29-2023 Bamboo flowsheet Denisha Herron NP Work Phone: [facility] Start: 10-29-2023 End: 10-29-2023 Bamboo flowsheet Denisha Herron [employer] Work Phone: [facility] Start: 10-29-2023 End: 10-29-2023 Assay of hemosiderin, quant Denisha Herron NP Work Phone: [facility] Start: 10-29-2023 End: 10-29-2023 Patient encounter procedure Denisha Herron NP Work Phone: [facility] Comment on above: Medicare annual well ness [...] (CMS/HCC); BMI 39.0-39.9,adult; Hyperparathyroidism (CMS/HCC); Morbid obesity (CMS/HCC); Non-toxic multinodular goiter (CMS/HCC); Thyroid disease (CMS/HCC); Vitamin B-complex deficiency; Vitamin D deficiency; Anemia, unspecified type; Thrombocytopenia ([facility]); Fibrocystic breast changes, unspecified laterality; Hypercalcemia; Hypokalemia; Chronic bilateral low back pain without sciatica; Lymphedema; Seasonal allergies; Sensorineural hearing loss (SNHL) of left ear with unrestricted hearing of right ear; Body mass index (BMI) 40.0-44.9, adult ([facility]); Other thrombophilia ([facility]); Secondary hyperparathyroidism of renal origin ([facility]); Primary hyperparathyroidism ([facility]); Secondary hyperparathyroidism, not elsewhere classified ([facility]); Routine general medical examination at health care facility; Hypomagnesemia; Disorder of left eustachian tube Start: 10-29-2023 End: 10-29-2023 ambulatory DENISHA HERRON Not Available Start: 09-23-2023 End: 09-23-2023 ambulatory MARLA STRICKLAND Not Available Start: 09-05-2023 End: 09-05-2023 ambulatory EMILY PARK Not Available Start: 07-30-2023 End: 07-30-2023 ambulatory MARLA STRICKLAND Not Available Start: 07-25-2023 End: 07-25-2023 ambulatory LAZARO BORRERO Not Available Start: 06-18-2023 End: 06-18-2023 ambulatory [facility] Start: 05-13-2023 End: 05-13-2023 ambulatory [facility] Amb[facility] Start: 05-13-2023 End: 05-13-2023 Office outpatient visit 25 minutes Mily Prabhakar MD Work Phone: [facility] Comment on above: Permanent atrial fib rillation with RVR ([facility]) (Primary Dx); Essential hypertension; Hypokalemia; BMI 39.0-39.9,adult; Former smoker; Obstructive sleep apnea; High risk medication use Start: 04-17-2023 End: 04-17-2023 Office outpatient visit 15 minutes Noel Farnsworth MD Work Phone: [facility] Comment on above: Acute non-recurrent sinusitis, unspecified location Start: 04-17-2023 Bamboo flowsheet Noel martel MD Work Phone: [facility] Start: 04-17-2023 Bamboo flowsheet Noel martel MD Work Phone: [facility] Start: 03-25-2023 End: 03-25-2023 ambulatory II Noel Farnsworth Work Phone: [facility] Work Phone: Start: 03-25-2023 End: 03-25-2023 Patient encounter procedure II Noel Farnsworth Work Phone: [facility] Work Phone: Start: 03-07-2023 End: 03-07-2023 Patient encounter procedure II Noel Farnsworth Work Phone: [facility] Work Phone: Start: 02-20-2023 End: 02-20-2023 ambulatory II Noel Farnsworth Work Phone: [facility] Work Phone: Start: 02-20-2023 End: 02-20-2023 Patient encounter procedure II Noel Javad Work Phone: [facility] Work Phone: Start: 11-20-2022 Telephone encounter Noel joe Work Phone: [facility] 250 DO Work Phone: Start: 10-23-2022 Office outpatient vi sit 25 minutes Noel Farnsworth Work Phone: [facility] 250 DO Work Phone: Start: 10-23-[address] Mily Prabhakar Facility: Start: 08-02-2022 End: 08-03-[address] NOEL FARNSWORTH Facility:H1 Start: 07-09-2022 End: 08-08-2022 ambulatory SHAIKH Connie MURILLO Facility:H1 Start: 06-11-2022 End: 07-06-2022 ambulatory KOCH H FAWWAD Facility:H1 Start: 06-05-2022 End: 06-06-2022 ambulatory TRUNG HOOD Facility:H1 Start: 05-09-[address] Mily Prabhakar Facility: Start: 05-09-2022 End: 06-08-2022 ambulatory [...] 01-17-2022 ambulatory II Noel Farnsworth Work Phone: [facility] Work Phone: Start: 01-17-2022 End: 01-17-2022 Patient encounter procedure II Noel Farnsworth Work Phone: [facility] Start: 01-09-2022 End: 02-07-2022 ambulatory KOCH H FAWWAD Facility:H1 Start: 12-25-2021 End: 12-25-2021 ambulatory II Noel Farnsworth Work Phone: [facility] Work Phone: Start: 12-25-2021 End: 12-25-2021 Discharged Recurring II Noelbossman Farnsworth Work Phone: [facility] [address] Start: 12-25-2021 Registered Recurring II Noel Farnsworth Work Phone: [facility] [employer] [facility] [address] Start: 12-10-2021 End: 01-08-2022 ambulatory SHAIKH Connie MURILLO Facility:H1 Start: 11-28-2021 Rx Renewal Mily Prabhakar MD Work Phone: [facility] 250 DO Work Phone: Start: 11-19-2021 Encounter for genera l adult medical examination without abnormal findings DR MILY PRABHAKAR [facility] Start: 11-14-2021 End: 11-15-[address] NOEL FARNSWORTH Facility:H1 Start: 11-14-2021 End: 11-15-2021 Encounter for general adult medical examination without abnormal findings DR NOEL FARNSWORTH Facility:H1 Start: 11-10-2021 End: 11-10-[address] NOEL FARNSWORTH Facility:H1 Start: 11-09-2021 End: 11-10-[address] NOEL FARNSWORTH Facility:H1 Start: 11-09-2021 End: 12-09-2021 ambulatory SHAIKH Connie MURILLO Facility:H1 Start: 11-06-2021 Telephone encounter Mily dawkins MD Work Phone: [facility] 250 DO Work Phone: Start: 11-06-2021 End: 11-07-[address] NOEL FARNSWORTH Facility:H1 Start: 11-01-2021 Office outpatient vi sit 25 minutes Mily Prabhakar MD Work Phone: [facility] 250 DO Work Phone: Start: 10-09-2021 End: 11-08-2021 ambulatory SHAIKH Connie MURILLO Facility:H1 Start: 09-15-2021 End: 09-16-[address] NOEL FARNSWORTH Facility:H1 Start: 09-08-2021 End: 10-06-2021 ambulatory SHAIKH Connie MURILLO Facility:H1 Start: 07-26-2021 Rx Renewal Mily Prabhakar MD Work Phone: [facility] 250 DO Work Phone: Start: 04-26-2021 Office outpatient vi sit 25 minutes Mily Prabhakar MD Work Phone: [facility] 250 DO Work Phone: Start: 04-26-2021 Patient encounter procedure Sutton steffen Prabhakar MD Work Phone: [facility] 250 DO Work Phone: Start: 12-09-2017 End: 12-10-2017 Patient encounter procedure DEFAULT PHYSICIAN Facility:[facility] Start: 09-16-2017 End: 09-17-2017 Patient encounter procedure STEPHANIE ADALI CAVAZOS Facility:[facility] Procedures Date Procedure Procedure Detail Performing Clinician Start: 08-07-2024 Urnls dip stick/tabl et rgnt non-auto w/o micrscp Marla WILSON Work Phone: Start: 07-23-2024 ALL LIPID PROFILE (FASTING) Marla WILSON Work Phone: Start: 07-02-2024 Arthrocentesis aspir &/inj major jt/bursa w/us Lazaro Borrero DO Work Phone: Start: 06-09-2024 ALL THYROID STIM HORMONE Generic External Data Provider Start: 06-09-2024 [facility] CMP (CMP) (FOR R [facility] USE) Generic External Data [...] Start: 01-20-2024 [facility] CMP (CMP) (FOR [facility] USE) Generic External Data Provider Start: 01-20-2024 [...] Arthrocentesis aspir &/inj major jt/bursa w/us Lazaro Espino Rukhsana DO Work Phone: Start: 01-02-2024 Radex shoulder compl ete minimum 2 views Lazaro Kenzie Rukhsana DO Work Phone: Start: 11-01-2023 ALL CBC WITH AUTO DIFF Denisha Herron NP Work Phone: Start: 05-13-2023 CBC panel - Blood by Automated count MILY PRABHAKAR Start: 05-13-2023 Basic metabolic 2000 panel - Serum or Plasma MILY PRABHAKAR Start: 03-25-2023 Dual energy X-ray absorptiometry II Noel Farnsworth Work Phone: Start: 02-20-2023 End: 02-20-2023 Screening mammography of bilateral breasts II Noel Farnsworth Work Phone: Start: 01-17-2022 End: 01-17-2022 Screening mammography of bilateral breasts II Noel Farnsworth Work Phone: Start: 03-30-2020 Colonoscopy Noel read MD Work Phone: Start: 07-04-2015 History of thyroidectomy H/O thyroid ectomy Noel Farnsworth MD Work Phone: Appendectomy Mily Prabhakar MD Work Phone: Cholecystectomy Mily faust MD Work Phone: Decompression of med david nerve Mily Prabhakar MD Work Phone: History of thyroidectomy H/O thyroidectom y Marla WILSON Work Phone: Ligation of varicose vein Sutton steffen Prabhakar MD Work Phone: Operation on skin Noel joe Work Phone: Operation on stomach Mily Prabhakar MD Work Phone: Release of trigger finger Sutton steffen Prabhakar MD Work Phone: Thyroidectomy Mily Prabhakar MD Work Phone: Total colonoscopy Mily dawkins MD Work Phone: Plan of Treatment Date Care Activity Detail Author Start: 03-30-2030 Screening for malignant neoplasm of colon [facility] Start: 07-07-2025 Medicare Annual Wellness (AWV) Medicare Annual Wellness (AWV) [facility] Start: 06-23-2025 Adult BMI Screening Adult BMI Screening [facility] Start: 06-23-2025 End: 06-23-2026 DXA Skeletal system Views for bone density Dexa scan central skeletal Imaging Routine Age-related osteoporosis without current pathological fracture Expected: 06/23/2025, Expires: 06/23/2026 [facility] Comment on above: Expected: 06/23/2025, Expires: Start: 06-23-2025 Tobacco Screening Tobacco Screening [facility] Start: 06-22-2025 End: 06-22-2025 Patient encounter procedure 06/22/2025 9:30 AM EDT Office Visit [facility] Adult Endocrinology, A Department of [facility] [address] [place] [address] Trung Gonzalez MD [address] [place] [address] [facility] Adult Endocrinology, A Department of [facility] Start: 06-09-2025 End: 06-23-2025 Comprehensive metabolic 2000 panel - Serum or Plasma Comprehensive metabolic panel Lab Routine Subclinical hypothyroidism Expected: 06/09/2025, Expires: 06/23/2025 [facility] Comment on above: Expected: 06/09/2025, Expires: Start: 06-09-2025 End: 06-23-2025 Thyroid profile includes TSH FT4 Thyroid profile includes TSH FT4 Lab Routine Subclinical hypothyroidism Expected: 06/09/2025, Expires: [facility]23[facility] Expected: 06/09/2025, Expires: Start: 06-09-2025 End: 06-23-2025 Vitamin D 25 hydroxy Vitamin D 25 hydroxy Lab Routine Vitamin D deficiency Expected: 06/09/2025, Expires: 06/23/2025 [employer] Work Phone: Comment on above: Expected: 06/09/2025, Expires: Start: 04-01-2025 End: 04-01-2025 Patient encounter procedure 04/01/2025 10:00 AM EST Office Visit [facility] [address] [place] [phone] Sherlyn Rucker, DO [address] [place] [address] [facility] Start: 03-28-2025 Screening for osteoporosis Bone Density Scan [facility] Start: 03-19-2025 Screening for malignant neoplasm of breast Mammogram [facility] Start: 12-31-2024 End: 12-31-2024 Patient encounter procedure 12/31/2024 9:00 AM EDT Office Visit [facility] [address] [place] [phone] Lazaro Borrero, DO [address] [place] [address] [facility] Start: 11-09-[address] [facility] Start: 10-28-2024 Medicare Annual Wellness (AWV) Medicare Annual Wellness (AWV) [facility] Start: 08-27-2024 End: 08-27-2024 Patient encounter procedure 08/27/2024 9:00 AM EDT Office Visit [facility] [address] [facility] [address] [place] [phone] Mily Prabhakar MD [address] [facility] [address] [place] [address] [facility] Start: 08-07-2024 End: 08-07-2025 URINARY TRACT INFECTION (HTRX) URINARY TRACT INFECTION (HTRX) Lab Routine Acute cystitis with hematuria Expected: 08/07/2024 (Approximate), Expires: 08/07/2025 [facility] Work Phone: Comment on above: Expected: 08/07/2024 (Approximate), Expi res: 08/07/2025 Start: 07-07-2024 End: 07-07-2024 Patient encounter procedure 07/07/2024 9:30 AM EDT Office Visit [facility] [address] [place] [address] Marla Strickland PA [address] [place] [address] Arrived [facility] Comment on above: Arrived Start: 07-02-2024 End: 07-02-2024 Patient encounter procedure [facility] Comment on above: Arrived Start: 06-24-2024 End: 06-24-2024 Patient encounter procedure 06/24/2024 1:30 PM EDT Office Visit [facility] [address] [place] [address] Emily Park, [employer] [address] [place] [address] Arrived [facility] Comment on above: Arrived Start: 04-16-2024 End: 04-16-2024 Patient encounter procedure 04/16/2024 3:30 PM EST Office Visit [facility] [address] [place] [address] Emily Park, [employer] [address] [place] [address] Arrived [facility] Comment on above: Arrived Start: 03-18-2024 End: 03-18-2024 Patient encounter procedure [facility] Comment on above: Vaginal atrophy; Encounter for mammogram to establish baseline mammogram Start: 03-12-2024 End: 03-12-2024 Patient encounter procedure 03/12/2024 9:00 AM EST Office Visit [facility] [address] [place] [address] Noel Farnsworth MD [address] [place] [address] Arrived [facility] Comment on above: [...] [address] [place] [address] Noel Farnsworth MD [address] [place] [address] Arrived [facility] Comment on above: Arrived Start: 02-21-2024 Screening for malignant neoplasm of breast Mammogram [facility] Start: 02-16-2024 Medicare Annual Wellness (AWV) Medicare Annual Wellness (AWV) [facility] Start: 01-03-2024 End: 01-02-2025 COMMON RESPIRATORY BACTERIAL/VIRAL INFECTION (HTRX) COMMON RESPIRATORY BACTERIAL/VIRAL INFECTION (HTRX) Lab Routine Acute URI Laryngitis Expected: 01/03/2024 (Approximate), Expires: 01/02/2025 [facility] Work Phone: Comment on above: Expected: 01/03/2024 (Approximate), Expi res: 01/02/2025 Start: 01-03-2024 End: 01-03-2024 Patient encounter procedure [facility] Comment on above: Arrived Start: 01-02-2024 End: 01-02-2024 Patient encounter procedure 01/02/2024 9:00 AM EDT Office Visit [facility] [address] [place] [phone] Lazaro Borrero DO [address] [place] [address] [facility] Start: 11-28-2023 End: 11-28-2023 Patient encounter procedure 11/28/2023 9:30 AM EDT Office Visit [facility] [address] [facility] [address] [place] [phone] Mily Prabhakar MD [address] [facility] [address] [place] [address] [facility] Start: 11-10-2023 COVID-19 Vaccine ( season) COVID-19 Vaccine ( season) [facility] Start: 11-10-2023 COVID-19 Vaccine ( season) COVID-19 Vaccine ( season) [facility] Start: 11-10-2023 Influenza vaccination Influenza Vaccine (#1) [facility] Start: 10-29-2023 End: 10-28-2024 25-hydroxyvitamin D3 [Mass/volume] in Serum or Plasma Vitamin D 25 hydroxy Lab Routine Vitamin D deficiency Expected: 10/29/2023 (Approximate), Expires: 10/28/2024 [facility] Comment on above: Expected: 10/29/2023 (Approximate), Expi res: 10/28/2024 Start: 10-29-2023 End: 10-28-2024 CBC panel - Blood by Automated count CBC Lab Routine Atrial fibrillation, unspecified type ([facility]) Chronic venous insufficiency Primary hypertension ([facility]) Gastroesophageal reflux disease without esophagitis Seasonal allergies Medicare annual wellness visit, subsequent Expected: 10/29/2023 (Approximate), Expires: 10/28/2024 [facility] Comment on above: Expected: 10/29/2023 (Approximate), Expi res: 10/28/2024 Start: 10-29-2023 End: 10-28-2024 Comprehensive metabolic 2000 panel - Serum or Plasma Comprehensive metabolic panel Lab Routine Primary hypertension ([facility]) Hypercalcemia Hypokalemia Primary hyperparathyroidism ([facility]) Medicare annual wellness visit, subsequent Expected: 10/29/2023 (Approximate), Expires: 10/28/2024 [facility] Comment on above: Expected: 10/29/2023 (Approximate), Expi res: 10/28/2024 Start: 10-29-2023 End: 10-28-2024 Magnesium [Mass/volume] in Serum or Plasma Magnesium Lab Routine Hypomagnesemia Expected: 10/29/2023 (Approximate), Expires: 10/28/2024 [facility] Comment on above: Expected: 10/29/2023 (Approximate), Expi res: 10/28/2024 Start: 10-29-2023 End: 10-28-2024 Thyrotropin [Units/volume] in Serum or Plasma TSH Lab Routine Non-toxic multinodular goiter ([facility]) Medicare annual wellness visit, subsequent Expected: 10/29/2023 (Approximate), Expires: 10/28/2024 [facility] Work Phone: Comment on above: Expected: 10/29/2023 (Approximate), Expi res: 10/28/2024 Start: 10-29-2023 End: 10-29-2023 Patient encounter procedure [facility] Comment on above: Arrived Start: 10-13-2023 End: 05-12-2024 Basic metabolic 2000 panel - Serum or Plasma Basic Metabolic Panel Lab Routine Permanent atrial fibrillation with RVR (CMS/HCC) Essential hypertension Hypokalemia Expected: 10/13/2023, Expires: 05/12/2024 [facility] Service Area Work Phone: Comment on above: Expected: 10/13/2023, Expires: Start: 10-13-2023 End: 05-12-2024 CBC panel - Blood by Automated count CBC Lab Routine Permanent atrial fibrillation with RVR (CMS/HCC) Essential hypertension Hypokalemia Expected: 10/13/2023, Expires: 05/12/2024 [facility] Work Phone: Comment on above: Expected: 10/13/2023, Expires: Start: 07-25-2023 End: 07-25-2023 Patient encounter procedure 07/25/2023 9:30 AM EDT Office Visit [facility] [address] [place] [phone] Lazaro Borrero DO [address] [place] [address] [facility] Start: 05-01-2023 End: 05-01-2023 Patient encounter procedure 05/01/2023 9:30 AM EST Office Visit [facility] [address] [place] [address] Noel Farnsworth MD [address] [place] [address] [facility] Start: 04-24-2023 FUV, Provider: Mily Prabhakar, Status: Pen, Time: 9:30 AM FUV, Provider: Mily Prabhakar, Status: Pen, Time: 9:30 AM [facility] 250 DO Work Phone: Start: 04-17-2023 End: 04-17-2023 Patient encounter procedure 04/17/2023 2:15 PM EST Office Visit [facility] [address] [facility] 110 [place] [phone] Noel Farnsworth MD [address] [facility] 110 [place] [address] Arrived [facility] Comment on above: Arrived Start: 01-17-2023 Screening for malignant neoplasm of breast Mammogram [facility] Start: 11-09-2022 COVID-19 Vaccine () COVID-19 Vaccine () [facility] Start: 11-09-2022 Influenza vaccination Influenza Vaccine (#1) [facility] Start: 05-09-2022 FUV, Provider: Mily Prabhakar, Status: Pen, Time: 9:20 AM FUV, Provider: Mily Prabhakar, Status: Pen, Time: 9:20 AM [facility] [employer] 250 DO Work Phone: Start: 11-01-2021 FUV, Provider: Mily Prabhakar, Status: Pen, Time: 9:30 AM FUV, Provider: Mily Prabhakar, Status: Pen, Time: 9:30 AM [facility] [employer] 250 DO Work Phone: Start: 09-22-2019 Fall Risk Screening Fall Risk Screening [facility] Start: 09-22-2019 Pneumococcal Vaccine: 65+ Years (1 - PCV) Pneumococcal Vaccine: 65+ Years (1 - PCV) [facility] Start: 2014 RSV patients and/or patients aged 60+ years (1 - 1-dose 60+ series) RSV patients and/or patients aged 60+ years (1 - 1-dose 60+ series) [facility] Start: 2004 Administration of varicella zoster vaccine Zoster (Shingles) Vaccine (1 of 2) [facility] Start: 2004 Zoster Vaccines (1 of 2) Zoster Vaccines (1 of 2) [facility] Start: 1976 DTaP/Tdap/Td Vaccines (1 - Tdap) DTaP/Tdap/Td Vaccines (1 - Tdap) [facility] Start: 1973 DTaP,Tdap and Td Vaccines (1 - Tdap) DTaP,Tdap and Td Vaccines (1 - Tdap) [facility] Start: 1973 Pneumococcal Vaccine: 65+ Years (1 of 2 - PCV) Pneumococcal Vaccine: 65+ Years (1 of 2 - PCV) [facility] Start: 1972 Diabetes mellitus screening Diabetes Screening [facility] Start: 1972 Hepatitis C screening Hepatitis C Screening [facility] Start: 1966 Depression Screening Depression Screening [facility] Start: 1960 Pneumococcal Vaccine: 65+ Years (1 - PCV) Pneumococcal Vaccine: 65+ Years (1 - PCV) [facility] Start: 1960 Pneumococcal Vaccine: 65+ Years (1 of 2 - PCV) Pneumococcal Vaccine: 65+ Years (1 of 2 - PCV) [facility] Start: 1954 Lipid panel Lipid Panel [facility] Start: 1954 Medicare Annual Wellness Visit Medicare Annual Wellness Visit (AWV) [facility] Start: 1954 Screening for malignant neoplasm of colon [facility] CBC W Auto Different ial panel - Blood CBC and differential Lab Routine Anemia, unspecified type Ordered: 02/28/2024 [facility] Comment on above: Ordered: 02/28/2024 DBT Breast - bilater al screening Bilateral screening mammogram with tomosynthesis Imaging Routine Encounter for mammogram to establish baseline mammogram Ordered: 03/18/2024 [facility] Work Phone: Comment on above: Ordered: 03/18/2024 HEPATITIS C AB W/RFL RNS, PCR W/RFL GENOTYPE,LIPA HEPATITIS C AB W/RFL RNS, PCR W/RFL GENOTYPE,LIPA Lab Routine Medicare annual wellness visit, subsequent Other problems related to lifestyle Ordered: 07/07/2024 [facility] Work Phone: Comment on above: Ordered: 07/07/2024 Lipid 1996 panel - Serum or Plasma Lipid panel Lab Routine Medicare annual wellness visit, subsequent Elevated AST (SGOT) Primary hypertension (CMS/HCC) Ordered: 07/07/2024 [facility] Comment on above: Ordered: 07/07/2024 Immunizations Immunization Date Immunization Notes Care Provider Fa collins 02-14-2021 Pfizer-BioNTech COVID-19 Vacc 30 MCG/0.3ML Intramuscular Suspension Mily Prabhakar MD Work Phone: [facility] 06-30-2020 Pfizer-BioNTech COVID-19 Vacc 30 MCG/0.3ML Intramuscular Suspension Mily Prabhakar MD Work Phone: [facility] 250 DO Work Phone: 06-07-2020 Pfizer-BioNTech COVID-19 Vacc 30 MCG/0.3ML Intramuscular Suspension Mily Prabhakar MD Work Phone: [facility] 01-07-2012 influenza, seasonal, injectable, preservative free Noel Farnsworth MD Work Phone: [facility] 01-07-2012 influenza virus vaccine, unspecified formulation Noel Farnsworth MD Work Phone: [facility] Payers Date Payer Category Payer Self-pay [id number] 2022 Medicare [id number] 2022 Medicare (Managed Care) [facility] [id number] 2020 Unknown 1959 Medicare [id number] 1959 Medicare [id number] 1959 Private Health Insurance [id number] 1959 Unknown [id number] 1959 Unknown [id number] 1954 Unknown [id number] 2.16.840.1.504782.3.579.2. 647 1955 Unknown [id number] 2.16.840.1.481531.3.579.2. 647 1954 Unknown [id number] 2.16.840.1.356239.3.579.2. 593 1954 Unknown [id number] 2.16.840.1.582160.3.579.2. 59 1954 Unknown [id number] 2.16.840.1.616314.3.579.2. 593 1954 Unknown [id number] 2.16.840.1.877284.3.579.2. 593 1954 Unknown [id number] 2.16.840.1.760217.3.579.2. 593 1954 Unknown [id number] 2.16.840.1.748615.3.579.2. 593 1954 Unknown [id number] 2.16.840.1.360954.3.579.2. 593 1954 Unknown [id number] 2.16.840.1.598869.3.579.2. 593 1954 Unknown [id number] 2.16.840.1.594716.3.579.2. 593 1954 Unknown [id number] 2.16.840.1.919686.3.579.2. 593 1954 Unknown [id number] 2.16.840.1.740787.3.579.2. 593 1954 Unknown [id number] 2.16.840.1.157122.3.579.2. 593 1954 Unknown [id number] 2.16.840.1.351023.3.579.2. 593 1954 Unknown [id number] 2.16.840.1.327366.3.579.2. 593 1954 Unknown [id number] 2.16.840.1.185788.3.579.2. 593 1954 Unknown [id number] 2.16.840.1.565277.3.579.2. 593 1954 Unknown [id number] 2.16.840.1.206205.3.579.2. 593 1954 Unknown [id number] 2.16.840.1.919957.3.579.2. 593 1954 Unknown [id number] 2.16.840.1.894308.3.579.2. 593 1954 Unknown [id number] 2.16.840.1.686154.3.579.2. 593 1954 Unknown [id number] 2.16.840.1.474950.3.579.2. 593 1954 Unknown [id number] 2.16.840.1.909866.3.579.2. 356 1954 Unknown [id number] 2.16.840.1.729859.3.579.2. 356 1954 Unknown [id number] 2.16.840.1.914352.3.579.2. 1286 1954 Unknown [id number] 2.16.840.1.729544.3.579.2. 1244 1954 Unknown [id number] 2.16.840.1.133521.3.579.2. 1244 1954 Unknown [id number] 2.16.840.1.442013.3.579.2. 1286 1954 Unknown [id number] 2.16.840.1.689285.3.579.2. 1258 1954 Unknown [id number] 2.16.840.1.128755.3.579.2. 1258 1954 Unknown [id number] 2.16.840.1.541672.3.579.2. 1258 1954 Unknown [id number] 2.16.840.1.596490.3.579.2. 1258 1954 Unknown [id number] 2.16.840.1.107518.3.579.2. 1258 1954 Unknown [id number] 2.16.840.1.966720.3.579.2. 1258 1954 Unknown [id number] 2.16.840.1.993193.3.579.2. 1258 1954 Unknown [id number] 2.16.840.1.743737.3.579.2. 1258 1954 Unknown [id number] 2.16.840.1.453528.3.579.2. 1258 1954 Unknown [id number] 2.16.840.1.174783.3.579.2. 1258 1954 Unknown [id number] 2.16.840.1.295042.3.579.2. 1258 1954 Unknown [id number] 2.16.840.1.251680.3.579.2. 1258 1954 Unknown [id number] 2.16.840.1.340410.3.579.2. 1258 1954 Unknown [id number] 2.16.840.1.825125.3.579.2. 1258 1954 Unknown [id number] 2.16.840.1.126037.3.579.2. 1258 1954 Unknown [id number] 2.16.840.1.918831.3.579.2. 1259 1954 Unknown [id number] 2.16.840.1.289145.3.579.2. 1259 [facility] [id number] Medicare [id number] Unknown [facility] [id number] Unknown [id number] 2.16.840.1.898970.3.579.2. 531 Unknown [id number] 2.16.840.1.667520.3.579.2. 531 Social History Date Type Detail Facility Start: 04-17-2023 End: 07-07-2024 Social alcohol use Social alcohol use [facility] Start: 1955 Sex Assigned At Female F [facility] Start: 10-18-2022 Tobacco smoking stat [facility] Never smoked tobacco [facility] Start: 06-13-2022 End: 10-18-2022 Tobacco use and exposure Smokeless tobacco non-user [facility] Start: 04-17-2023 End: 08-07-2024 Alcohol intake Lifetime non-drinker (finding) [facility] Start: 04-17-2023 End: 07-07-2024 Tobacco use panel [facility] Start: 08-17-2022 Alcohol Comment caffeine: none [facility] Start: 1955 Sex Assigned At Not on file [facility] Start: 06-13-2022 End: 05-13-2023 Tobacco smoking status NHIS Ex-smoker [facility] Work Phone: End: 03-11-1981 History of tobacco use Current smoker [facility] Work Phone: End: 03-11-1981 History of tobacco use Cigarette Smoker [facility] Work Phone: Start: 05-13-2023 End: 06-23-2024 Alcohol intake Current drinker of alcohol (finding) [facility] Work Phone: Start: 03-28-2023 Alcohol Comment social [facility] Work Phone: Start: 05-03-2023 End: 11-28-2023 Exposure to SARS-CoV-2 (event) Not sure [facility] Tobacco smoking stat us MDIS Unknown if ever smoked [facility] Work Phone: Start: 10-14-2014 End: 03-20-2024 Sex Female (finding) [facility] Childcare Unknown [facility] Start: 06-13-2022 Tobacco Comment 41 years ago [facility] Start: 06-13-2022 Alcohol Comment maybe 2 a [facility] Functional Status Date Assessment Result Facility 07-07-2024 Patient Health Quest ionnaire 2 item (PHQ-2) [Reported] [facility] 06-24-2024 Patient Health Quest ionnaire 2 item (PHQ-2) [Reported] [facility] Clinical Notes 09-15-2021 to 08-07-2024 KATIE Parker - 08/07/2024 12:30 PM KATIE Burris - 07/07/2024 9:30 AM Zack Walker MA - 07/02/2024 9:30 AM EDElder Borrero DO - 07/02/2024 9:30 AM EDTPatient Instructions Note Date & Type Note Facility 08-07-2024 History of Present illness Narrative Images from [...] no hematuria. The pain is present in the bladder. Current Outpatient Medications on File Prior to Visit Medication Sig Dispense Refill Ascorbic Acid (vitamin C) 1000 MG tablet aspirin 81 MG EC tablet Take 1 tablet by mouth Daily calcium carbonate 1500 (600 Ca) MG tablet Take 600 mg by mouth in the morning. cholecalciferol (Vitamin D-3) 1.25 MG (97172 UT) capsule Take one capsule daily 100 [...] every 12 (twelve) hours 200 tablet 3 Starks-3 Fatty Acids (Fish Oil) 1200 MG capsule [...] Vitals BP 118/78 Pulse 63 Temp 97.5 F Ht 5' 4 Wt 241 lb SpO2 97% BMI 41.37 kg/m Smoking Status Never BSA 2.22 m Review of Systems Constitutional: Negative for chills. [...] Status Glucose, UA 08/07/2024 Negative Negative - 2000(110) ++++ mg/dL In process Bilirubin, UA 08/07/2024 [...] exists to indicate HCV infection. Performed at: [facility] [employer] [id number] Plumber Supervisor: Bharat Cain PhD, Phone: [phone] Assessment/Plan Diagnoses and all orders for this [...] fail to improve. documented in this encounter [facility] 07-07-2024 History of Present illness Narrative Images [...] 07/07/2024 9:38 AM. Subjective Patient ID: Marla Figueerdo is a 68 y.o. female who presents [...] Do you have a medical power of chief of anesthesiology?: No Current Outpatient Medications on File Prior [...] the morning. cholecalciferol (Vitamin D-3) 1.25 MG (89260 UT) capsule Take one capsule daily 100 [...] every 12 (twelve) hours 200 tablet 3 Starks-3 Fatty Acids (Fish Oil) 1200 MG capsule [...] a living will and durable power of chief of anesthesiology for healthcare. We discussed telling mcgill people [...] fibrillation (CMS/HCC) The patient is seeing a emergency medical technician/driver for this condition, treatment is deferred to that specialist. Correspondence from that specialist and any available testing were reviewed during today's visit. 13. Chronic venous insufficiency The patient is seeing a emergency medical technician/driver for this condition, treatment is deferred to that specialist. Correspondence from that specialist and any available testing were reviewed during today's visit. 14. Mitral valve prolapse The patient is seeing a emergency medical technician/driver for this condition, treatment is deferred to [...] of vagina The patient is seeing a emergency medical technician/driver for this condition, treatment is deferred to [...] and cartilage The patient is seeing a emergency medical technician/driver for this condition, treatment is deferred to that specialist. Correspondence from that specialist and any available testing were reviewed during today's visit. 26. Edema of both legs [facility] with [facility]. Continue current treatment plan as per their recommendations. 27. Internal derangement of left shoulder The patient is seeing a emergency medical technician/driver for this condition, treatment is deferred to [...] right knee The patient is seeing a emergency medical technician/driver for this condition, treatment is deferred to that specialist. Correspondence from that specialist and any available testing were reviewed during today's visit. 33. Right anterior shoulder pain The patient is seeing a emergency medical technician/driver for this condition, treatment is deferred to that specialist. Correspondence from that specialist and any available testing were reviewed during today's visit. 34. Senile osteoporosis ([facility]) The patient is seeing a emergency medical technician/driver for this condition, treatment is deferred to that specialist. Correspondence from that specialist and any available testing were reviewed during today's visit. 35. Hyperparathyroidism ([facility]) The patient is seeing a emergency medical technician/driver for this condition, treatment is deferred to that specialist. Correspondence from that specialist and any available testing were reviewed during today's visit. 36. Morbid obesity ([facility]) Encouraged portion control, decrease simple sugars and carbohydrates, gradually increase activity level. Aim for gradual steady weight loss. 37. Non-toxic multinodular goiter ([facility]) The patient is seeing a emergency medical technician/driver for this condition, treatment is deferred to that specialist. Correspondence from that specialist and any available testing were reviewed during today's visit. 38. BMI 40.0-44.9, adult ([facility]) Encouraged portion control, decrease simple sugars and carbohydrates, gradually increase activity level. Aim for gradual steady weight loss. 39. Subclinical hypothyroidism ([facility]) The patient is seeing a emergency medical technician/driver for this condition, treatment is deferred to that specialist. Correspondence from that specialist and any available testing were reviewed during today's visit. 40. Vitamin B-complex deficiency The patient is seeing a emergency medical technician/driver for this condition, treatment is deferred to that specialist. Correspondence from that specialist and any available testing were reviewed during today's visit. 41. Vitamin D deficiency The patient is seeing a emergency medical technician/driver for this condition, treatment is deferred to that specialist. Correspondence from that specialist and any available testing were reviewed during today's visit. 42. Other iron deficiency anemia This is a chronic medical condition that is stable since last assessment. Will continue to monitor with routine labs. 43. Thrombocytopenia (CMS/HCC) This is a chronic medical condition that is stable since last assessment. Will continue to monitor with routine labs. 44. Other chronic sinusitis This is a chronic medical condition that is stable since last assessment. No changes in treatment are suggested at this time. Continue Flonase. 45. Anticoagulated The patient is seeing a emergency medical technician/driver for this condition, treatment is deferred to [...] unspecified laterality The patient is seeing a emergency medical technician/driver for this condition, treatment is deferred to that specialist. Correspondence from that specialist and any available testing were reviewed during today's visit. 49. Former smoker The patient was counseled on the importance of maintaining cigarette smoking abstinence. The patient continues to refrain from smoking and is committed to avoiding tobacco use. 50. H/O thyroidectomy The patient is seeing a emergency medical technician/driver for this condition, treatment is deferred to that specialist. Correspondence from that specialist and any available testing were reviewed during today's visit. 51. Height loss This is a chronic medical condition that is stable since last assessment. No changes in treatment are suggested at this time. 52. High risk medication use The patient is seeing a emergency medical technician/driver for this condition, treatment is deferred to [...] Marla MEDEIROS, PAKateC documented in this encounter [facility] 07-02-2024 History of Present illness Narrative Associated Order(s): L Inj/Asp: R glenohumeral Post-Procedure Diagnose(s): Complete tear of right rotator cuff, unspecified whether traumatic L Inj/Asp: R glenohumeral on 07/02/2024 9:57 AM Indications: pain Details: 25 G needle, ultrasound-guided Medications: 12 mg betamethasone acetate-betamethasone sodium phosphate 6 (3-3) MG/ML Consent was given by the patient. Images from the original note were not included. @CASSANDRA@ Marla Figueredo is a 68 y.o. female [...] Daily RT cholecalciferol (Vitamin D-3) 1.25 MG (16327 UT) capsule Take one capsule daily Copper [...] (LOPRESSOR) 25 mg, Oral, Every 12 hours Starks-3 Fatty Acids (Fish Oil) 1200 MG capsule [...] rotation, resisted supination, or forward flexion. Negative May's. Negative Neer/Keita impingement. No tenderness over the [...] traumatic - L Inj/Asp: R glenohumeral Lazaro Borrero D.O. Attestation This note was created using voice recognition through [employer]. documented in this encounter [facility] 06-24-2024 History of Present illness Narrative Subjective [...] the morning. cholecalciferol (Vitamin D-3) 1.25 MG (64382 UT) capsule Take one capsule daily 100 [...] every 12 (twelve) hours 200 tablet 3 Starks-3 Fatty Acids (Fish Oil) 1200 MG capsule [...] Hx Past Medical History: Diagnosis Date A-fib ([facility]) Acute sinusitis Anemia DVT (deep venous thrombosis) ([facility]) GERD (gastroesophageal reflux disease) History of medical problems mucoperiosteal thickening maxillary sinuses History of medical problems 12/23/2019 ECHO EF 55-60% Mitral valve prolapse Seasonal allergic rhinitis Thyroid disease ([facility]) Trigger finger, acquired Past Surgical History: Procedure [...] follow-ups on file. documented in this encounter [facility] 06-23-2024 Evaluation + Plan note Associated Problem(s): Subclinical hypothyroidism Continue monitoring. We will obtain thyroid function studies prior to her next appointment [facility] 06-23-2024 Evaluation + Plan note Associated Problem(s): Vitamin D deficiency 25 hydroxy vitamin-D levels at target on current regimen. We will obtain 25 hydroxyvitamin D prior to her next appointment in 1 year [facility] 06-23-2024 Miscellaneous Notes Associated Problem(s): Subclinical hypothyroidism [...] discussed with patient documented in this encounter [facility] 06-23-2024 Evaluation + Plan note Associated Problem(s): Primary hyperparathyroidism No compelling reasons to recommend parathyroidectomy. We will continue serum calcium monitoring [facility] 06-23-2024 Evaluation + Plan note Associated Problem(s): Age-related osteoporosis without current pathological fracture Patient doing well on calcium and vitamin-D supplementation without clinical evidence of fractures. On a drug holiday after completing 5 years of Reclast. We will obtain a follow-up bone mineral density in March 2025. Fall precautions and the importance of exercise discussed with patient [facility] 06-23-2024 History of Present illness Narrative Reason [...] previously getting yearly Reclast infusions at the [facility] on a drug holiday after she completed 5 years of treatment. BMD done in July 2017 at [place] showed a L1-L2 T score of -1.7, [...] November 2013. Had a Dexa scan at [facility] in [facility] in March 2023 which showed a lumbar [...] , CREATININE , CALCIUMUR , CREATININEUR , [id number] , PTHINTACT , VITD25 , MG ASSESSMENT: [...] of exercise discussed with patient Primary hyperparathyroidism ([facility]) No compelling reasons to recommend parathyroidectomy. We will continue serum calcium monitoring Vitamin D deficiency 25 hydroxy vitamin-D levels at target on current regimen. We will obtain 25 hydroxyvitamin D prior to her next appointment in 1 year Subclinical hypothyroidism Continue monitoring. We will obtain thyroid function studies prior to her next appointment documented in this encounter [facility] 04-30-2024 History of Present illness Narrative Images [...] the morning. cholecalciferol (Vitamin D-3) 1.25 MG (53840 UT) capsule Take one capsule daily 100 [...] every 12 (twelve) hours 200 tablet 3 Starks-3 Fatty Acids (Fish Oil) 1200 MG capsule [...] Hx Past Medical History: Diagnosis Date A-fib ([facility]) Acute sinusitis Anemia DVT (deep venous thrombosis) ([facility]) GERD (gastroesophageal reflux disease) History of medical problems mucoperiosteal thickening maxillary sinuses History of medical problems 12/23/2019 ECHO EF 55-60% Mitral valve prolapse Seasonal allergic rhinitis Thyroid disease ([facility]) Trigger finger, acquired Past Surgical History: Procedure [...] follow-ups on file. documented in this encounter [facility] 04-30-2024 Instructions Emily Park NP - 04/30/2024 1:00 PM EST Keflex is added today. documented in this encounter [facility] 04-16-2024 History of Present illness Narrative Images [...] the morning. cholecalciferol (Vitamin D-3) 1.25 MG (62191 UT) capsule Take one capsule daily 100 [...] every 12 (twelve) hours 200 tablet 3 Starks-3 Fatty Acids (Fish Oil) 1200 MG capsule [...] follow-ups on file. documented in this encounter [facility] 04-16-2024 Instructions Emily Park NP - 04/16/2024 3:30 PM EST Augmentin added Flonase added Refill of feso4 is sent. documented in this encounter [facility] 03-18-2024 History of Present illness Narrative Images from the original note were not included. Sherlyn Rucker D.O. Obstetrics and Gynecology Patient: Marla Figueredo : 1955 (68 y.o.) Yearly Wellness [...] 1 Term Obstetric Comments Pap smear 02/15/23 [facility], [place] 02[place]23 [place] [facility] [place]23 Review of Systems - General: [...] Review Audit Reviewed by Ivette Rizo MA (Senior Corporate Accountant) on 03/18/24 at 0935 Medication Order Taking? Sig Documenting Provider Last Dose Status Ascorbic Acid (vitamin C) 1000 MG tablet [id number] No 2 tablets Historical MD Jeancarlos Taking Active aspirin 81 MG EC tablet [id number] Take 1 tablet by mouth in the morning. Dorothy Arshad MD Active calcium carbonate 1500 (600 Ca) MG tablet [id number] No Take 600 mg by mouth in the morning. Emily Park NP Taking Active Discontinued 03/12/24 0912 cholecalciferol (Vitamin D-3) 1.25 MG (70772 UT) capsule [id number] No Take one capsule daily Noel Farnsworth MD Taking Active Copper Gluconate 2 MG tablet [id number] No Take 1 tablet by mouth in the morning. Emily Park NP Taking Active famotidine (Pepcid) 20 MG tablet [id number] No TAKE 1 TABLET BY MOUTH EVERY DAY AT BEDTIME NEEDED for 90 Historical MD Jeancarlos Taking Active ferrous sulfate 325 (65 Fe) MG tablet [id number] No TAKE 1 TABLET BY MOUTH 3 TIMES A WEEK (SATURDAY, SATURDAY,SATURDAY) Patient taking differently: Take 325 mg by mouth in the morning and 325 mg before bedtime. Noel Farnsworth MD Taking Active fluticasone (Flonase) 50 MCG/ACT nasal spray [id number] No Administer 1 spray into each nostril in the morning. Shake gently. Before first use, prime pump. After use, clean tip and replace cap.. KATIE Parker Taking Active loratadine (Claritin) 10 MG tablet [id number] No 1 (one) time each day at the same time. Dorothy Arshad MD Taking Active MAGNESIUM PO [id number] No Take 250 mg by mouth in the morning. Emily Park NP Taking Active metoprolol tartrate (Lopressor) 25 MG tablet [id number] No Take 1 tablet (25 mg) by mouth every 12 (twelve) hours Noel Farnsworth MD Taking Active Starks-3 Fatty Acids (Fish Oil) 1200 MG capsule delayed-release [id number] No Fish Oil Dorothy Arshad MD Taking Active pantoprazole (ProtoNix) 40 MG EC tablet [id number] TAKE 1 TABLET BY MOUTH DAILY Noel Farnsworth MD Active potassium chloride CR (Klor-Con M20) 20 MEQ ER tablet [id number] No TAKE 4 TABLETS BY MOUTH EVERY DAY Historical Provider, Taking Active spironolactone (Aldactone) 25 MG tablet [id number] No Take 25 mg by mouth in the morning and 25 mg before bedtime. Historical Provider, Taking Active sulfamethoxazole-trimethoprim (Bactrim DS) 800-160 MG per tablet [id number] Take 1 tablet by mouth in the morning and 1 tablet before bedtime. Do all this for 7 days. Noel Farnsworth MD Active torsemide (Demadex) 20 MG tablet [id number] No TAKE 1 TABLET BY MOUTH EVERY DAY Mallory Stewart MD Taking Active Turmeric 500 MG tablet [id number] No Take 1 tablet by mouth in the morning. Emily Park NP Taking Active warfarin (Coumadin) 5 MG tablet [id number] No 1 (one) time each day at the same time. Historical Provider, Taking Active zinc gluconate 50 MG tablet [id number] No Take 50 mg by mouth in the morning. Emily Park NP Taking Active Past Medical History: Diagnosis Date A-fib ([facility]) Acute sinusitis Anemia DVT (deep venous thrombosis) ([facility]) GERD (gastroesophageal reflux disease) History of medical problems mucoperiosteal thickening maxillary sinuses History of medical problems 12/23/2019 ECHO EF 55-60% Mitral valve prolapse Seasonal allergic rhinitis Thyroid disease ([facility]) Trigger finger, acquired Past Surgical History: Procedure [...] baseline mammogram Z12.31 documented in this encounter [facility] 03-12-2024 History of Present illness Narrative Images [...] the morning. cholecalciferol (Vitamin D-3) 1.25 MG (06743 UT) capsule Take one capsule daily 100 [...] every 12 (twelve) hours 200 tablet 3 Starks-3 Fatty Acids (Fish Oil) 1200 MG capsule [...] Final Glucose, UA 02/28/2024 Negative Negative - 2000(110) ++++ mg/dL Final Bilirubin, UA 02/28/2024 Negative Negative - 4(70) +++ mg/dL Final Ketones, UA 02/28/2024 Negative Negative - 160(16) ++++ mg/dL Final Spec Grav, UA 02/28/2024 1.015 1 - 1.03 Final Blood, UA 02/28/2024 Negative Negative - 50 Binh/mcL Final pH, UA 02/28/2024 6.0 5 - 9 Final Protein, UA 02/28/2024 Negative Negative - 2000(20) ++++ mg/dL Final Urobilinogen, UA 02/28/2024 0.2 [...] 0.55 - 1.02 mg/dL Final [facility] EGFR-AF BRUNEIAN 01/20/2024 >60 >=60 mL/min/1.73m 2 Final [facility] EGFR-NON AF BRUNEIAN 01/20/2024 >60 >=60 mL/min/1.73m 2 Final BUN [...] - 1245 pg/mL Final Comment: Performed at: [address] [id number] Plumber Supervisor: Bharat Cain PhD, Phone: [phone] VITAMIN B1 (THIAMINE), BLOOD 01/20/2024 193.7 66.5 - 200.0 nmol/L Final Comment: This test was developed and its performance characteristics determined by [facility]. It has not been cleared or approved by the Food and Drug Administration. Performed at: [address] [id number] Plumber Supervisor: Bernice Gant MD, Phone: [phone] COPPER LEVEL 01/20/2024 88 80 - 158 ug/dL Final Comment: This test was developed and its performance characteristics determined by [facility]. It has not been cleared or approved by the Food and Drug Administration. Detection Limit = 5 ZINC LEVEL 01/20/2024 90 44 - 115 ug/dL Final Comment: This test was developed and its performance characteristics determined by [facility]. It has not been cleared or approved by the Food and Drug Administration. Detection Limit = 5 Performed at: [address] [id number] Plumber Supervisor: Bernice Gant MD, Phone: [phone] VITAMIN A, SERUM 01/20/2024 51.2 22.0 - 69.5 ug/dL Final Comment: Reference intervals for vitamin A determined from [facility] internal studies. Individuals with vitamin A less than 20 ug/dL are considered vitamin A deficient and those with serum concentrations less than 10 ug/dL are considered severely deficient. This test was developed and its performance characteristics determined by [facility]. It has not been cleared or approved by the Food and Drug Administration. Performed at: [address] [id number] Plumber Supervisor: Bernice Gant MD, Phone: [phone] Assessment/Plan Diagnoses and all orders for this [...] for Routine F/U. documented in this encounter [facility] 02-28-2024 History of Present illness Narrative Images [...] the morning. cholecalciferol (Vitamin D-3) 1.25 MG (06668 UT) capsule Take one capsule daily 100 [...] every 12 (twelve) hours 200 tablet 3 Starks-3 Fatty Acids (Fish Oil) 1200 MG capsule [...] Test/Lab Review, Recheck. documented in this encounter [facility] 01-03-2024 History of Present illness Narrative Images [...] apnea. Wanting to discuss the Watchman Procedure. [place] that this is for A fib. Current [...] the morning. cholecalciferol (Vitamin D-3) 1.25 MG (92897 UT) capsule Take one capsule daily 100 [...] every 12 (twelve) hours 200 tablet 3 Starks-3 Fatty Acids (Fish Oil) 1200 MG capsule [...] GASTRIC BYPASS 1997 HERNIA REPAIR 1999 LASIK 2000 eye OTHER [...] fibrillation (CMS/HCC) The patient is seeing a emergency medical technician/driver for this condition, treatment is deferred to [...] fail to improve. documented in this encounter [facility] 01-02-2024 History of Present illness Narrative Images from the original note were not included. @JESSICADATE@ Marla Espino Terell is a 68 y.o. [...] Daily RT cholecalciferol (Vitamin D-3) 1.25 MG (33443 UT) capsule Take one capsule daily Copper [...] (LOPRESSOR) 25 mg, Oral, Every 12 hours Starks-3 Fatty Acids (Fish Oil) 1200 MG capsule [...] rotation, resisted supination, or forward flexion. Negative May's. Negative Neer/Keita impingement. No tenderness over the AC joint. Negative cross-arm adduction. Negative Speed's and Yergason's. No instability. Ortho Exam Results MRI of the right shoulder performed at the [facility] on 10/09/2022; report and images [...] medical record, and coordinating patient care. Lazaro Borrero D.O. Attestation This note was created using voice recognition through [employer]. Associated Order(s): L Inj/Asp: R glenohumeral Post-Procedure Diagnose(s): Complete tear of right rotator cuff, unspecified whether traumatic L Inj/Asp: R glenohumeral on 01/02/2024 9:18 AM Indications: pain Details: 25 G needle, ultrasound-guided Medications: 2 mL betamethasone acetate-betamethasone sodium phosphate 6 (3-3) MG/ML Consent was given by the patient. documented in this encounter [facility] 11-28-2023 History of Present illness Narrative Subjective Maral Figueredo is a 68 y.o. female Chief [...] Coumadin managed by the Coumadin clinic at [facility]. 2-essential hypertension under control on metoprolol. 3- history of severe lower extremity edema and cellulitis with recent flareup on the right side requiring therapy with improvement 4-morbid obesity status post bariatric surgery but remains in class II obesity, more aggressive weight loss was recommended 5-high risk medication with anticoagulation with no bleeding problems. 6-nuclear stress test in [place] several years ago was normal, no need [...] tablet, Take by mouth. As directed by [place] [facility], Disp: , Rfl: zinc gluconate [...] Scribe Attestation By signing my name below, Carlotta Mejia LPN, Scribe attest that this documentation has been prepared under the direction and in the presence of Mily Prabhakar MD. Provider Attestation - Scribe documentation All medical record entries made by the Scribe were at my direction and personally dictated by me. I have reviewed the chart and agree that the record accurately reflects my personal performance of the history, physical exam, discussion and plan. documented in this encounter [facility] Work Phone: 11-28-2023 Instructions Carlotta Ybarra LPN [...] cannot be sent through Care Everywhere.Mediterranean Diet (Dominican)documented in this encounter [facility] Work Phone: 10-29-2023 History of Present illness [...] the morning. cholecalciferol (Vitamin D-3) 1.25 MG (91372 UT) capsule Take one capsule daily 100 [...] every 12 (twelve) hours 200 tablet 3 Starks-3 Fatty Acids (Fish Oil) 1200 MG capsule [...] suggested at this time. 13. Senile osteoporosis ([facility]/HCC) This is a chronic medical condition that [...] with minimal sugar and caffiene. 15. Hyperparathyroidism (CMS/HCC) Followed by endocrinology 16. Morbid obesity (CMS/HCC) Discussed goal of BMI < 30. Advised [...] sugar and caffiene. 17. Non-toxic multinodular goiter ([facility]) This is a chronic medical condition that is stable since last assessment. No changes in treatment are suggested at this time. - TSH; Future - TSH 18. Thyroid disease ([facility]) Followed by endocrinolgy 19. [...] this time. Followed by hematology 22. Thrombocytopenia ([facility]) Followed by hematology 23. [...] 30. Body mass index (BMI) 40.0-44.9, adult ([facility]) Discussed goal of BMI < 30. Advised [...] minimal sugar and caffiene. 31. Other thrombophilia ([facility]) Followed by hematology 32. Secondary hyperparathyroidism of renal origin ([facility]) Followed by endocrinology 33. Primary hyperparathyroidism ([facility]) Followed by endocrinology - Comprehensive metabolic panel; Future - Comprehensive metabolic panel 34. Secondary hyperparathyroidism, not elsewhere classified ([facility]) Followed by endocrinology 35. [...] panel 36. Routine general medical examination at [facility] care facility Reviewed all relevant preventative screenings [...] taxes?: Yes Cognitive Screening Three Word Registration: River, Nation, Finger Clock Drawing: Normal Clock - 2 Three Word Recall: All 3 words correct - 3 Total Score (0-5 Points): 5 Pain Assessment Pain Score: 0 - No pain Advance Care Planning Do you have a living will?: No Do you have a medical power of chief of anesthesiology?: No Objective : BP 120/75 Pulse 50 [...] in living will or durable power of chief of anesthesiology. No orders of the defined types were placed in this encounter. Electronically signed by Denisha Herron NP on October 29, 2023 documented in this encounter [facility] 05-13-2023 History of Present illness Narrative Subjective [...] Coumadin managed by the Coumadin clinic at [facility]. 2-essential hypertension under control on metoprolol. 3- history of severe lower extremity edema and Neurontin event resolved on medical therapy. We will continue triple diuretics and follow renal function closely.. 4-morbid obesity status post bariatric surgery but remains in class II obesity, more aggressive weight loss was recommended 5-high risk medication with anticoagulation with no bleeding problems. 6-nuclear stress test in [place] several years ago was normal, no need [...] tablet, Take by mouth. As directed by [place] [facility], Disp: , Rfl: zinc gluconate [...] Scribe Attestation By signing my name below, Dianne Mejia LPN , Scribe attest that this documentation has been prepared under the direction and in the presence of Mily Prabhakar MD. Provider Attestation - Scribe documentation All medical record entries made by the Scribe were at my direction and personally dictated by me. I have reviewed the chart and agree that the record accurately reflects my personal performance of the history, physical exam, discussion and plan. documented in this encounter [facility] Work Phone: 05-13-2023 Instructions Dianne Gerardo LPN [...] on dietary changes. documented in this encounter [facility] Work Phone: 04-17-2023 History of Present illness [...] the morning. cholecalciferol (Vitamin D-3) 1.25 MG (38438 UT) capsule Take one capsule daily 100 [...] 500 mg by mouth in the morning. Starks-3 Fatty Acids (Fish Oil) 1200 MG capsule [...] fail to improve. documented in this encounter [facility] 11-10-2021 Note PROCEDURE: CT CSPINE WO CON [...] by: HARPREET QUINTERO Date: 2021-11-10 14:37 [facility] 09-15-2021 Note PROCEDURE: XR FOOT L T [...] authenticated by: BETY GIORDANO Date: 2021-09-15 16:00 [facility] Evaluation note No assessment inform ation available [facility] Work Phone: Evaluation note Diagnosis Acute non-recurrent sinusitis, unspecified location documented in this encounter [facility] HealthcareEvaluation note* Diagnosis Permanent atrial fibrillation with RVR (CMS/HCC)- Primary Essential hypertension Unspecified essential hypertension Hypokalemia Hypopotassemia BMI 39.0-39.9,adult Former smoker Personal history of tobacco use, presenting hazards to health Obstructive sleep apnea Obstructive sleep apnea (adult) (pediatric) High risk medication use documented in this encounter [facility] Work Phone: Evaluation note* Diagnosis Complete tear of right rotator cuff, unspecified whether traumatic- Primary documented in this encounter [facility] HealthcareEvaluation note* Diagnosis Acute URI- Primary Acute upper respiratory infections of unspecified site Laryngitis Acute laryngitis, without mention of obstruction Longstanding persistent atrial fibrillation (CMS/HCC) Right ear impacted cerumen Impacted cerumen documented in this encounter [facility] HealthcareEvaluation note* Diagnosis Permanent atrial fibrillation with [...] risk medication use documented in this encounter [facility] Work Phone: Evaluation note* Diagnosis Medicare annual [...] obesity (CMS/HCC) Morbid obesity Non-toxic multinodular goiter ([facility]) Nontoxic multinodular goiter Thyroid disease ([facility]) Unspecified disorder of thyroid Vitamin B-complex deficiency Unspecified vitamin B deficiency Vitamin D deficiency Anemia, unspecified type Thrombocytopenia ([facility]) Unspecified thrombocytopenia Fibrocystic breast changes, unspecified laterality Hypercalcemia Hypokalemia Hypopotassemia Chronic bilateral low back pain without sciatica Lymphedema Other noninfectious lymphedema Seasonal allergies Allergic rhinitis, cause unspecified Sensorineural hearing loss (SNHL) of left ear with unrestricted hearing of right ear Body mass index (BMI) 40.0-44.9, adult ([facility]) Other thrombophilia ([facility]) Secondary hyperparathyroidism of renal origin ([facility]) Secondary hyperparathyroidism (of renal origin) Primary hyperparathyroidism ([facility]) Primary hyperparathyroidism Secondary hyperparathyroidism, not elsewhere classified ([facility]) Routine general medical examination at health care facility Routine general medical examination at a health care facility Hypomagnesemia Disorders of magnesium metabolism Disorder of left eustachian tube documented in this encounter [facility]* Diagnosis Acute non-recurrent sinusitis, unspecified location- Primary Acute cystitis without hematuria Anemia, unspecified type documented in this encounter [facility] HealthcareEvaluation note* Diagnosis Acute non-recurrent sinusitis, unspecified location- Primary Acute cystitis without hematuria Anemia, unspecified type documented in this encounter [facility] HealthcareEvaluation note* Diagnosis Vaginal atrophy Postmenopausal atrophic vaginitis Encounter for mammogram to establish baseline mammogram Other screening mammogram documented in this encounter [facility]* Diagnosis Acute non-recurrent sinusitis, unspecified location- Primary Edema of lower extremity Bariatric surgery status Unspecified atrial fibrillation ([facility]) Morbid (severe) obesity due to excess calories ([facility]) Body mass index (BMI) 40.0-44.9, adult ([facility]) documented in this encounter [facility] HealthcareEvaluation note* Diagnosis Cellulitis, unspecified cellulitis site- Primary documented in this encounter [facility]* Diagnosis Hyperparathyroidism- Primary Hyperparathyroidism, unspecified Age-related osteoporosis without current pathological fracture Vitamin D deficiency- Primary Subclinical hypothyroidism Other specified acquired hypothyroidism Primary hyperparathyroidism Age-related osteoporosis without current pathological fracture Subclinical hypothyroidism- Primary Other specified acquired hypothyroidism Vitamin D deficiency Age-related osteoporosis without current pathological fracture documented in this encounter [facility] System[facility]* Diagnosis Complete tear of right rotator cuff, unspecified whether traumatic- Primary documented in this encounter [facility] HealthcareEvaluation note* Diagnosis Medicare annual wellness visit, subsequent- Primary ACP (advance care planning) Other specified counseling Elevated AST (SGOT) Other problems related to lifestyle Primary hypertension ([facility]/HCC) Unspecified essential hypertension Neck pain Cervicalgia Bilateral carpal tunnel syndrome Carpal tunnel syndrome Lumbar radiculopathy Thoracic or lumbosacral neuritis or radiculitis, unspecified Obstructive sleep apnea syndrome Obstructive sleep apnea (adult) (pediatric) Right cervical radiculopathy Mild intermittent asthmatic bronchitis without complication (CMS/HCC) Longstanding persistent atrial fibrillation (CMS/HCC) Chronic venous insufficiency Unspecified venous (peripheral) insufficiency Mitral valve prolapse Mitral valve disorders Abnormal intestinal absorption (CMS/HCC) Unspecified intestinal malabsorption Gastroesophageal reflux disease without [...] pain Senile osteoporosis (CMS/HCC) Senile osteoporosis Hyperparathyroidism ([facility]) Hyperparathyroidism, unspecified Morbid obesity (CMS/HCC) Morbid obesity Non-toxic multinodular goiter ([facility]/HCC) Nontoxic multinodular goiter BMI 40.0-44.9, adult ([facility]/HCC) Subclinical hypothyroidism (CMS/HCC) Other specified acquired hypothyroidism Vitamin B-complex deficiency Unspecified vitamin B deficiency Vitamin D deficiency Other iron deficiency anemia Thrombocytopenia (CMS/[facility]) Unspecified thrombocytopenia Other chronic [...] of right ear documented in this encounter [facility] HealthcareEvaluation note* Diagnosis Acute frontal sinusitis, recurrence not specified- Primary PND (post-nasal drip) Postnasal drip documented in this encounter [facility] HealthcareEvaluation note* Diagnosis Dysuria- Primary Acute cystitis with hematuria Seasonal allergies Allergic rhinitis, cause unspecified Cyst of soft tissue documented in this encounter [facility] HealthcareInstructionsNot on filedocumented in this encounterGrant HospitalReason for referral (narrative)* Consultation (Routine) - Authorized Specialty Diagnoses / Procedures Referred By Contac t Referred To Contact Cardiology Diagnoses Permanent atrial fibrillation with RVR ([facility]) Procedures Follow Up In Cardiology Mily Prabhakar MD [address] [place] [address] 2, [address] [address] Mily Prabhakar MD [address] [place] [address] [address], [address] [address] Referral ID Status Reason Start Date Expiration Date V isits Requested Visits Authorized [id number] Authorized 05/13/2023 05/12/2024 1 1 [facility] Work Phone: Reason for referral (narrative)* Consultation (Routine) - Authorized Specialty Diagnoses / Procedures Referred By Contac t Referred To Contact Cardiology Diagnoses Permanent atrial fibrillation with RVR ([facility]) Procedures Follow Up In Cardiology Mily Prabhakar MD [address] [facility] 2, [address] [address] Mily Prabhakar MD [address] [place] [address] 2, [address] [address] Referral ID Status Reason Start Date Expiration Date V isits Requested Visits Authorized [id number] Authorized 11/28/2023 11/27/2024 1 1 [facility] Work Phone: Summary Purpose Family History [...] Coumadin managed by the Coumadin clinic at [facility]. We agreed to pursue rate [...] problems. * 6 nuclear stress test in [place] several years ago was normal, no need to repeat. * 7 sleep apnea intolerant to CPAP machine. * MARLA FIGUEREDO is being seen for a 6 month follow-up of. * Patient is in the office for follow-up for the problems noted below. She continues to have chronic atrial fibrillation managed with rate control and [facility] She does have chronic lower [...] Coumadin managed by the Coumadin clinic at [facility]. We agreed to pursue rate [...] fibrillation managed by the Coumadin clinic at [facility]. Her weight is couple pounds [...] Coumadin managed by the Coumadin clinic at [facility]. * 2 essential hypertension under [...] fibrillation managed by the Coumadin clinic at [facility]. Her weight is couple pounds [...] Coumadin managed by the Coumadin clinic at [facility]. * 2 essential hypertension under [...] problems. * 6 nuclear stress test in [place] several years ago was normal, no need [...] and content) DATE CREATED AUTHOR 07/29/2018 [facility] DATE CREATED AUTHOR AUTHOR'S ORGANIZ ATION 08/17/2022 [facility] DATE CREATED AUTHOR AUTHOR'S ORGANIZ ATION 10/24/2022 [employer] DATE CREATED AUTHOR AUTHOR'S ORGANIZ ATION 12/23/2022 [facility] [place] DATE CREATED AUTHOR AUTHOR'S ORGANIZ ATION 06/19/2023 [facility] DATE CREATED AUTHOR AUTHOR'S ORGANIZ ATION 04/04/2024 [facility] DATE CREATED AUTHOR AUTHOR'S ORGANIZ ATION 05/31/2024 [facility] DATE CREATED AUTHOR AUTHOR'S ORGANIZ ATION 06/24/2024 [facility] DATE CREATED AUTHOR AUTHOR'S ORGANIZ ATION 07/08/2024 [facility] DATE CREATED AUTHOR AUTHOR'S ORGANIZ ATION 08/07/2024 [facility] Care Teams (unrecognized sec tion and [...] MD Primary Care Provider, Attending Provider Active Rotary Helper Relationship Specialty Start Date End Date Noel Farnsworth MD [address] [facility] [address] [place] [address] PCP - General Internal Medicine 08/14/22 Rotary Helper Relationship Specialty Start Date End Date Noel Farnsworth MD [address] [facility] [address] [place] [address] PCP - General Internal Medicine 08/14/22 Rotary Helper Relationship Specialty Start Date End Date Noel Farnsworth MD [address] [facility] [address] [place] [address] PCP - General 10/19/22 Rotary Helper Relationship Specialty Start Date End Date Noel Farnsworth MD [address] [facility] [address] [place] [address] PCP - General Internal Medicine 08/14/22 Rotary Helper Relationship Specialty Start Date End Date Noel Farnsworth MD [address] [place] [address] [place] [address] PCP - General Internal Medicine 08/14/22 Rotary Helper Relationship Specialty Start Date End Date Noel Farnsworth MD [address] [place] [address] [place] [address] PCP - General Internal Medicine 08/14/22 Rotary Helper Relationship Specialty Start Date End Date Noel Farnsworth MD [address] [place] [address] [place] [address] PCP - General Internal Medicine 08/14/22 Rotary Helper Relationship Specialty Start Date End Date Noel Farnsworth MD [address] [place] [address] [place] [address] PCP - General 10/19/22 Rotary Helper Relationship Specialty Start Date End Date Noel Farnsworth MD [address] [place] [address] [place] [address] PCP - General Internal Medicine 08/14/22 Rotary Helper Relationship Specialty Start Date End Date Noel Farnsworth MD [address] [place] [address] [place] [address] PCP - General Internal Medicine 08/14/22 Rotary Helper Relationship Specialty Start Date End Date Noel Farnsworth MD [address] [place] [address] [place] [address] PCP - General Internal Medicine 08/14/22 Rotary Helper Relationship Specialty Start Date End Date Noel Farnsworth MD [address] [place] [address] [place] [address] PCP - General Internal Medicine 08/14/22 Team Status: Inactive Member Role Status Dates Noel Farnsworth II MD Primary Care Provider Active Start: March 19, 2024 End: March 19, 2024 Sherlyn Rucker DO Attending Provider Active S tart: March 19, 2024 End: March 19, 2024 Rotary Helper Relationship Specialty Start Date End Date Noel Farnsworth MD [address] [place] [address] [place] [address] PCP - General Internal Medicine 08/14/22 Rotary Helper Relationship Specialty Start Date End Date Noel Farnsworth MD [address] [place] [address] [place] [address] PCP - General Internal Medicine 08/14/22 Rotary Helper Relationship Specialty Start Date End Date Noel Farnsworth MD [address] [place] [address] [place] [address] PCP - General Internal Medicine 08/14/22 Rotary Helper Relationship Specialty Start Date End Date Noel Farnsworth MD [address] [place] [address] [place] [address] PCP - General Internal Medicine 08/14/22 Rotary Helper Relationship Specialty Start Date End Date Noel Farnsworth MD [address], [place] [address] [place] [address] PCP - General Internal Medicine 06/13/22 Rotary Helper Relationship Specialty Start Date End Date Noel Farnsworth MD [address] [place] [address] [place] [address] PCP - General Internal Medicine 08/14/22 Rotary Helper Relationship Specialty Start Date End Date Noel Farnsworth MD [address] [place] [address] [place] [address] PCP - General Internal Medicine 08/14/22 Rotary Helper Relationship Specialty Start Date End Date Noel Farnsworth MD [address] [facility] [address] [place] [address] PCP - General Internal Medicine 08/14/22 Rotary Helper Relationship Specialty Start Date End Date Noel Farnsworth MD [address] [facility] [address] [place] [address] PCP - General Internal Medicine 08/14/22 Rotary Helper Relationship Specialty Start Date End Date Noel Farnsworth MD [address] [facility] [address] [place] [address] PCP - General Internal Medicine 08/14/22 Goals [...] months Specialty Diagnoses / Procedures Referred By Contac t Referred To Contact Cardiology Diagnoses Permanent atrial fibrillation with RVR ([facility]) Procedures Follow Up In Cardiology Mily Prabhakar MD [address] [facility] 2, [address] [address] Mily Prabhakar MD [address] [facility] 2, [address] [address] Referral ID Status Reason Start Date Expiration Date V isits Requested Visits Authorized [id number] Authorized 05/13/2023 05/12/2024 1 1 Reason Comments [...] neck could still be affecting her sinsues. Reason Comments Sinusitis UTI FOR RECORDS PERTAINING TO PATIENTS WHO ARE [...] BE BASED ON THE PRIMARY CLINICAL RECORDS. [facility]. provides no warranty or guarantee of the accuracy or completeness of information in this document.
--- OUTSIDE RECORDS SUMMARY | 2024-08-08 02:54 | XMS_ITS | Encounter Summary ---
Author Organization [facility] Address [address] [facility] [place] [address] Care Team Providers Care Net Making Supervisor Name Role Phone Noel Farnsworth MD Primary Care Provider [phone] Encounter Details Date Type Department Care Team (Late st Contact Info) Description 06/23/2024 Abstract [facility] 112 [facility] 110 [place] [phone] Noel Farnsworth MD 112 [facility] 110 [place], [place] [id number] Social History Tobacco Use Types Packs/Day Years Used Date Smoking Tobacco: Never Smokeless Tobacco: Never Alcohol Use Standard Drinks/Week Comments Never 0 (1 standard drink = 0.6 oz pur e alcohol) caffeine: none PHQ-2 Answer Date Recorded Patient Health Questionnaire-2 Score 0 06/24/2024 Comments Unknown Sex and Gender Information Value Date Recorded Sex Assigned at Not on file Legal Sex Female 6:52 PM EDT Gender Identity Not on file Sexual Orientation Not on file documented as of this encounter Functional Status * Over the past 2 weeks, how often have you been bothered by any of the following problems? Question Answer Date of Assessment Author Little interest or pleasure in doing things Not at all 06/24/2024 1:28 PM EDT DANE CAMACHO Feeling down, depressed, or hopeless Not at all 06/09 1:28 PM EDT DANE CAMACHO Patient Health Questionnaire-2 Score 0 06/09 1:28 PM EDT DANE CAMACHO documented as of this encounter Plan of Treatment Upcoming Encounters Date Type Department Care Team (Late Contact Info) Description 12/31/2024 9:00 AM EDT Office Visit [facility] [address] [place] [address] Lazaro Borrero, DO [address] [place] [address] 04/01/2025 10:00 AM EST Office Visit [facility] [address] [place] [address] Sherlyn Rucker, DO [address] [place] [address] documented as of this encounter Visit Diagnoses Not on filedocumented in this encounter Additional Health Concerns Assessment Noted Time PHQ-9 Depression Total Score: 0 10/29/19 24 9:00 AM EDT documented as of this encounter Care Teams Net Making Supervisor Relationship Specialty Start Date End Date Noel Farnsworth MD 112 [facility] 110 [place] [address] PCP - General Internal Medicine 08/14/22 documented as of this encounter
--- OUTSIDE RECORDS SUMMARY | 2024-08-08 02:54 | XMS_ITS | Encounter Summary ---
Author Organization [facility] Address [address] [facility] [place] [address] Care Team Providers Care Reproductive Healthcare Assistant Name Role Phone Noel Farnsworth MD Primary Care Provider [phone] Encounter Details Date Type Department Care Team ([facility] Contact Info) Description 11/01/2022 Abstract [facility] 112 [facility] 110 [place] [address] Noel Farnsworth MD 112 [facility] 110 [place], [place] [id number] Social History Tobacco Use Types Packs/Day Years [...] NB ORTHO [address] [place] [address] Lazaro Borrero DO [address] [place] [address] 04/01/2025 10:00 AM EST Office Visit [facility] [address] [facility] [address] [place] [address] Sherlyn Rucker, DO [address] [facility] 210 [place] [address] documented as of this encounter Visit Diagnoses Not on filedocumented in this encounter Care Teams Reproductive Healthcare Assistant Relationship Specialty Start Date End Date Noel Farnsworth MD 112 [facility] 110 [place] [address] PCP - General Internal Medicine 08/14/22 documented as of this encounter
--- OUTSIDE RECORDS SUMMARY | 2024-08-08 02:55 | XMS_ITS | Encounter Summary ---
Author Organization [facility] Address [address] [place] [address] Phone Care Team Providers Care Pediatric Physician Assistant Name Role Phone Noel Farnsworth MD Primary Care Provider [phone] Encounter Details Date Type Department Care Team (Late st Contact Info) Description 04/05/2021 Orders Only [facility] [address] [place] [address] Conversion, Onbase Social History Tobacco Use Types Packs/Day Years Used Date Smoking Tobacco: Never Assessed Comments Unknown Sex and Gender Information Value Date Recorded Sex Assigned at Not on file Legal Sex Female 8:34 PM EST Gender Identity Not on file Sexual Orientation Not on file documented as of this encounter Plan of Treatment Upcoming Encounters Date Type Department Care Team (Late st Contact Info) Description 08/27/2024 9:00 AM EDT Office Visit [facility] 703 [facility] 250 [place] [address] Mily Prabhakar MD 703 [facility], [address] [place] [address] Scheduled Orders Name Type Priority Associated Diagnoses Orde r Schedule OUTSIDE LAB SCAN Lab Ordered: 04/05/2021 documented as of this encounter Visit Diagnoses Not on filedocumented in this encounter Care Teams Pediatric Physician Assistant Relationship Specialty Start Date End Date Noel Farnsworth MD [address] [place] [address] PCP - General 10/19/22 documented as of this encounter
--- OUTSIDE RECORDS SUMMARY | 2024-08-08 02:55 | XMS_ITS | Encounter Summary ---
Author Organization [facility] tem Address [id number] [address] [place] [address] Care Team Providers Care Claim Manager Name Role Phone Noel Farnsworth MD Primary Care Provider [phone] Encounter Details Date Type Department Care Team (Late Contact Info) Description 06/19/2023 Orders Only [facility] [address] [phone] External, Scanning Provider Social History Tobacco Use Types Packs/Day Years Used Date Smoking Tobacco: Former Cigarettes Smokeless Tobacco: Never Comments:41 years ago Alcohol Use Standard Drinks/Week Comments Yes 0 (1 standard drink = 0.6 oz pur e alcohol) maybe 2 a month Childcare Answer Date Recorded Childcare Unknown 08/20/2018 Employment Answer Date Recorded Employment Unknown 08/20/2018 Hunger Screening Answer Date Recorded Within the past 12 months we worried whether our food would run out before we got money to buy more. Never True 06/18/2023 Within the past 12 months th e food we bought just didn't last and we didn't have money to get more. Never True 06/18/2023 Comments Unknown Sex and Gender Information Value Date Recorded Sex Assigned at Not on file Legal Sex Female 12:06 PM EDT Gender Identity Not on file Sexual Orientation Not on file documented as of this encounter Plan of Treatment Upcoming Encounters Date Type Department Care Team (Late Contact Info) Description 06/22/2025 9:30 AM EDT Office Visit [facility] Department of [facility] [address] [facility] 100 [place] [address] Trung Richardson MD [address] [facility] [address] [place] [address] documented as of this encounter Visit Diagnoses Not on filedocumented in this encounter Care Teams Claim Manager Relationship Specialty Start Date End Date Noel Farnsworth MD 112 [facility] 110 [place] [address] PCP - General Internal Medicine 06/13/22 documented as of this encounter
--- OUTSIDE RECORDS SUMMARY | 2024-08-08 02:55 | XMS_ITS | Encounter Summary ---
Author Organization [facility] Address [address] [place] [address] Phone Care Team Providers Care Electronic Equipment Maint Tech Name Role Phone Noel Farnsworth MD Primary Care Provider [phone] Encounter Details Date Type Department Care Team (Late st Contact Info) Description 12/01/2021 Orders Only [facility] [address] [place] [address] Conversion, Onbase Social History Tobacco Use Types [...] Description 08/27/2024 9:00 AM EDT Office Visit [facility] 703 [facility] 250 [place] [address] Mily Prabhakar MD 703 [facility] 2, [address] [place] [address] Scheduled Orders Name Type Priority Associated Diagnoses Orde r Schedule OUTSIDE LAB SCAN Lab Ordered: 12/01/2021 documented as of this encounter Visit Diagnoses Not on filedocumented in this encounter Care Teams Electronic Equipment Maint Tech Relationship Specialty Start Date End Date Noel Farnsworth MD [address] [place] [address] PCP - General 10/19/22 documented as of this encounter
--- OUTSIDE RECORDS SUMMARY | 2024-08-08 02:55 | XMS_ITS | Encounter Summary ---
Author Organization [facility] [employer] [facility] tem Address [id number] [address] [place] [address] Care Team Providers Care Lapidary Apprentice Name Role Phone Noel Farnsworth MD Primary Care Provider [phone] Encounter Details Date Type Department Care Team (Late Contact Info) Description 06/24/2023 Orders Only [facility] [address] [phone] External, Scanning Provider Social History Tobacco Use [...] Visit [facility] Department of [facility] [address] [facility] 100 [place] [address] Trung Richardson MD [address] [facility] [address] [place] [address] documented as of this encounter Visit Diagnoses Not on filedocumented in this encounter Care Teams Lapidary Apprentice Relationship Specialty Start Date End Date Noel Farnsworth MD 112 [facility] 110 [place] [address] PCP - General Internal Medicine 06/13/22 documented as of this encounter
--- OUTSIDE RECORDS SUMMARY | 2024-08-08 02:55 | XMS_ITS | Encounter Summary ---
Author Organization [facility] Address [address] [place] [address] Phone Care Team Providers Care Scrap Bunch Maker Name Role Phone Noel Farnsworth MD Primary Care Provider [phone] Encounter Details Date Type Department Care Team (Late st Contact Info) Description 02/04/2024 Scanned Document [facility] [address] [place] [phone] Scanning, Generic Provider Social History Tobacco Use Types Packs/Day Years Used Date Smoking Tobacco: Former Cigarettes Q uit: 1982 Alcohol Use Standard Drinks/Week Comments Yes 0 (1 standard drink = 0.6 oz pur e alcohol) social Comments Unknown Sex and Gender Information Value Date Recorded Sex Assigned at Not on file Legal Sex Female 8:34 PM EST Gender Identity Not on file Sexual Orientation Not on file documented as of this encounter Plan of Treatment Upcoming Encounters Date Type Department Care Team (Late st Contact Info) Description 08/27/2024 9:00 AM EDT Office Visit [facility] [address] [address] Mily Prabhakar MD 703 [facility] 2, [address] [place] [address] documented as of this encounter Procedures Procedure Name Priority Date/Time Associated Diagnosis Comments OUTSIDE LAB SCAN 02/04/2024 documented in this encounter Results * OUTSIDE LAB SCAN (02/04/2024) Narrative 02/04/2024 Ordered by an unspecified provider. us Generic Provider Scanning OUTSIDE SCAN Final Result documented in this encounter Visit Diagnoses Not on filedocumented in this encounter Additional Health Concerns Assessment Noted Time A fall risk assessment has been complete d for the patient 11/28/2023 9:37 AM EDT documented as of this encounter Care Teams Scrap Bunch Maker Relationship Specialty Start Date End Date Noel Farnsworth MD 112 [facility] 110 [place] [address] PCP - General 10/19/22 documented as of this encounter
--- OUTSIDE RECORDS SUMMARY | 2024-08-08 02:55 | XMS_ITS | Encounter Summary ---
Author Organization [facility] Address [address] [place] [address] Phone Care Team Providers Care Casino Banker Name Role Phone Noel Farnsworth MD Primary Care Provider [phone] Encounter Details Date Type Department Care Team (Late st Contact Info) Description 10/18/2020 Orders Only [facility] [address] [place] [address] Conversion, Onbase Social History Tobacco Use Types [...] Description 08/27/2024 9:00 AM EDT Office Visit [facility] 703 [facility] 250 [place] [address] Mily Prabhakar MD 703 [facility] 2, [address] [place] [address] Scheduled Orders Name Type Priority Associated Diagnoses Orde r Schedule OUTSIDE LAB SCAN Lab Ordered: 10/18/2020 documented as of this encounter Visit Diagnoses Not on filedocumented in this encounter Care Teams Casino Banker Relationship Specialty Start Date End Date Noel Farnsworth MD [address] [place] [address] PCP - General 10/19/22 documented as of this encounter
--- OUTSIDE RECORDS SUMMARY | 2024-08-08 02:55 | XMS_ITS | Encounter Summary ---
Author Organization [facility] Address [address] [place] [address] Phone Care Team Providers Care Pneumatic Jack Operator Name Role Phone Noel Farnsworth MD Primary Care Provider [phone] Encounter Details Date Type Department Care Team (Late st Contact Info) Description 06/25/2024 Scanned Document [facility] [address] [place] [phone] Scanning, Generic Provider Social History Tobacco Use [...] AM EDT Office Visit [facility] [address] [address] Mily Prabhakar MD 703 [facility] 2, [address] [place] [address] documented as of this encounter Procedures Procedure Name Priority Date/Time Associated Diagnosis Comments OUTSIDE LAB SCAN 06/25/2024 documented in this encounter Results * OUTSIDE LAB SCAN (06/25/2024) Narrative 06/25/2024 Ordered by an unspecified provider. us Generic Provider Scanning OUTSIDE SCAN Final Result documented in this encounter Visit Diagnoses Not on filedocumented in this encounter Additional Health Concerns Assessment Noted Time A fall risk assessment has been complete d for the patient 11/28/2023 9:37 AM EDT documented as of this encounter Care Teams Pneumatic Jack Operator Relationship Specialty Start Date End Date Noel Farnsworth MD 112 [facility] 110 [place] [address] PCP - General 10/19/22 documented as of this encounter
--- OUTSIDE RECORDS SUMMARY | 2024-08-08 02:55 | XMS_ITS | Encounter Summary ---
Author Organization [facility] Address [address] [place] [address] Phone Care Team Providers Care Blind Cleaner Name Role Phone Noel Farnsworth MD Primary Care Provider [phone] Encounter Details Date Type Department Care Team (Late st Contact Info) Description 05/03/2021 Orders Only [facility] [address] [place] [address] Conversion, Onbase Social History Tobacco Use Types [...] Description 08/27/2024 9:00 AM EDT Office Visit [facility] 703 [facility] 250 [place] [address] Mily Prabhakar MD 703 [facility] 2, [place] [place] [address] Scheduled Orders Name Type Priority Associated Diagnoses Orde r Schedule OUTSIDE LAB SCAN Lab Ordered: 05/03/2021 documented as of this encounter Visit Diagnoses Not on filedocumented in this encounter Care Teams Blind Cleaner Relationship Specialty Start Date End Date Noel Farnsworth MD [address] [place] [address] PCP - General 10/19/22 documented as of this encounter
--- OUTSIDE RECORDS SUMMARY | 2024-08-08 02:55 | XMS_ITS | Encounter Summary ---
Author Organization [facility] Address [address] [place] [address] Phone Care Team Providers Care Corporate Ethics Officer Name Role Phone Noel Farnsworth MD Primary Care Provider [phone] Encounter Details Date Type Department Care Team (Late st Contact Info) Description 05/24/2022 Orders Only [facility] [address] [place] [address] Conversion, Onbase Social History Tobacco Use Types [...] Description 08/27/2024 9:00 AM EDT Office Visit [facility] 703 [facility] 250 [place] [address] Mily Prabhakar MD 703 [facility] 2, [address] [place] [address] Scheduled Orders Name Type Priority Associated Diagnoses Orde r Schedule OUTSIDE LAB SCAN Lab Ordered: 05/24/2022 documented as of this encounter Visit Diagnoses Not on filedocumented in this encounter Care Teams Corporate Ethics Officer Relationship Specialty Start Date End Date Noel Farnsworth MD [address] [place] [address] PCP - General 10/19/22 documented as of this encounter
--- OUTSIDE RECORDS SUMMARY | 2024-08-08 02:55 | XMS_ITS | Encounter Summary ---
Author Organization [facility] [employer] [facility] tem Address [id number] [address] [place] [address] Care Team Providers Care Refractory Specialist Name Role Phone Noel Farnsworth MD Primary Care Provider Encounter Details Date Type Department Care Team (Late Contact Info) Description 06/11/2022 Orders Only [facility] [address] [phone] External, Scanning Provider Social History Tobacco Use Types Packs/Day Years Used Date Smoking Tobacco: Never Assessed Childcare Answer Date Recorded Childcare Unknown 08/20/2018 Employment Answer Date Recorded Employment Unknown 08/20/2018 Hunger Screening Answer Date Recorded Within the past 12 months we worried whether our food would run out before we got money to buy more. Never True 06/13/2022 Within the past 12 months th e food we bought just didn't last and we didn't have money to get more. Never True 06/13/2022 Comments Unknown Sex and Gender Information Value Date Recorded Sex Assigned at Not on file Legal Sex Female 12:06 PM EDT Gender Identity Not on file Sexual Orientation Not on file COVID-19 Exposure Response Date Recorded In the last month, have you been in contact with someone who was confirmed or suspected to have Coronavirus / COVID-19? No / Unsure 06/13/2022 9:42 AM EDT documented as of this encounter Plan of Treatment Upcoming Encounters Date Type Department Care Team (Late Contact Info) Description 06/22/2025 9:30 AM EDT Office Visit [facility] Department of [facility] [address] [phone] Trung Richardson MD [address] [facility] [address] [place] [address] documented as of this encounter Visit Diagnoses Not on filedocumented in this encounter Care Teams Refractory Specialist Relationship Specialty Start Date End Date Noel Farnsworth MD 112 [facility] 110 [place] [address] PCP - General Internal Medicine 06/13/22 documented as of this encounter
--- OUTSIDE RECORDS SUMMARY | 2024-08-08 02:55 | XMS_ITS | Encounter Summary ---
Author Organization [facility] Address [address] [place] [address] Phone Care Team Providers Care Route Manager Name Role Phone Noel Farnsworth MD Primary Care Provider [phone] Encounter Details Date Type Department Care Team (Late st Contact Info) Description 1955 Orders Only [facility] [address] [place] [phone] Scanning, Generic Provider Social History Tobacco Use [...] Description 08/27/2024 9:00 AM EDT Office Visit [facility] 703 [facility] [address] [place] [address] Mily Prabhakar MD 703 [facility] [address], [address] [place] [address] Scheduled Orders Name Type Priority Associated Diagnoses Orde r Schedule OUTSIDE LAB SCAN Lab Ordered: 1955 documented as of this encounter Visit Diagnoses Not on filedocumented in this encounter Care Teams Route Manager Relationship Specialty Start Date End Date Noel Farnsworth MD [address] [place] [address] PCP - General 10/19/22 documented as of this encounter
--- OUTSIDE RECORDS SUMMARY | 2024-08-08 02:55 | XMS_ITS | Encounter Summary ---
Author Organization [facility] Address [address] [place] [address] Phone Care Team Providers Care Aviculturist Name Role Phone Noel Farnsworth MD Primary Care Provider [phone] Encounter Details Date Type Department Care Team (Late st Contact Info) Description 09/22/2023 Orders Only [facility] [address] [place] [phone] Scanning, Generic Provider Social History Tobacco Use [...] Description 08/27/2024 9:00 AM EDT Office Visit [facility] [address] [address] Mily Prabhakar MD 703 [facility] 2, [address] [place] [address] Scheduled Orders Name Type Priority Associated Diagnoses Orde r Schedule OUTSIDE LAB SCAN Lab Ordered: 09/22/2023 documented as of this encounter Visit Diagnoses Not on filedocumented in this encounter Additional Health Concerns Assessment Noted Time A fall risk assessment has been complete d for the patient 05/13/2023 2:19 PM EST documented as of this encounter Care Teams Aviculturist Relationship Specialty Start Date End Date Noel Farnsworth MD 112 [facility] 110 [place] [address] PCP - General 10/19/22 documented as of this encounter
--- OUTSIDE RECORDS SUMMARY | 2024-08-08 02:55 | XMS_ITS | Encounter Summary ---
Author Organization [facility] Address [address] [facility] [place] [address] Care Team Providers Care Cma Or Lpn Name Role Phone Noel Farnsworth MD Primary Care Provider [phone] Encounter Details Date Type Department Care Team (Late Contact Info) Description 10/23/2022 Abstract [facility] FM [address] [facility] 110 [place] [phone] Noel Farnsworth MD 112 [facility] 110 [place], [place] [phone] Social History Tobacco Use Types Packs/Day Years [...] pleasure in doing things Not at all 10/25/2022 2:00 PM EDT Ginger Ceja MA Feeling down, depressed, or hopeless Not at all 10/25/2022 2:00 PM EDT Ginger Ceja MA Patient Health Questionnaire -2 Score 0 10/25/2022 2:00 PM EDT Ginger Ceja MA documented as of this encounter Plan of Treatment Upcoming Encounters Date Type Department Care Team (Late st Contact Info) Description 12/31/2024 9:00 AM EDT Office Visit [facility] [address] [place] [phone] Lazaro Borrero, DO [address] [place] [address] 04/01/2025 10:00 AM EST Office Visit [facility] [address] [place] [address] Sherlyn Rucker, DO [address] [place] [address] documented as of this encounter Visit Diagnoses Not on filedocumented in this encounter Care Teams Cma Or Lpn Relationship Specialty Start Date End Date Noel Farnsworth MD 112 [facility] 110 [place] [address] PCP - General Internal Medicine 08/14/22 documented as of this encounter
--- OUTSIDE RECORDS SUMMARY | 2024-08-08 02:55 | XMS_ITS | Encounter Summary ---
Author Organization [facility] Address [address] [place] [address] Phone Care Team Providers Care Pantry Goods Maker Name Role Phone Noel Farnsworth MD Primary Care Provider [phone] Encounter Details Date Type Department Care Team (Late st Contact Info) Description 12/14/2020 Orders Only [facility] [address] [place] [place] [address] Conversion, Onbase Social History Tobacco Use Types [...] 9:00 AM EDT Office Visit [facility] 703 [facility] 250 [place] [address] Mily Prabhakar MD 703 [facility] 2, [address] [place] [address] Scheduled Orders Name Type Priority Associated Diagnoses Orde r Schedule OUTSIDE LAB SCAN Lab Ordered: 12/14/2020 documented as of this encounter Visit Diagnoses Not on filedocumented in this encounter Care Teams Pantry Goods Maker Relationship Specialty Start Date End Date Noel Farnsworth MD [address] [place] [address] PCP - General 10/19/22 documented as of this encounter
--- OUTSIDE RECORDS SUMMARY | 2024-08-08 02:55 | XMS_ITS | Encounter Summary ---
Author Organization [facility] Address [address] [place] [address] Phone Care Team Providers Care Mortgage Loan Reviewer Name Role Phone Noel Farnsworth MD Primary Care Provider [phone] Encounter Details Date Type Department Care Team (Late st Contact Info) Description 07/14/2020 Orders Only [facility] [address] [place] [address] Conversion, Onbase Social History Tobacco Use Types [...] Description 08/27/2024 9:00 AM EDT Office Visit [facility] 703 [facility] 250 [place] [address] Mily Prabhakar MD 703 [facility] 2, [address] [place] [address] Scheduled Orders Name Type Priority Associated Diagnoses Orde r Schedule OUTSIDE LAB SCAN Lab Ordered: 07/14/2020 documented as of this encounter Visit Diagnoses Not on filedocumented in this encounter Care Teams Mortgage Loan Reviewer Relationship Specialty Start Date End Date Noel Farnsworth MD [address] [place] [address] PCP - General 10/19/22 documented as of this encounter
--- OUTSIDE RECORDS SUMMARY | 2024-08-08 02:55 | XMS_ITS | Encounter Summary ---
Author Organization [facility] Address [address] [place] [address] Phone Care Team Providers Care Plate Stacker Hand Name Role Phone Noel Farnsworth MD Primary Care Provider [phone] Encounter Details Date Type Department Care Team (Late st Contact Info) Description 03/31/[address] [facility] [address] [place] [address] Scanning, Generic Provider Social History Tobacco Use [...] Description 08/27/2024 9:00 AM EDT Office Visit [facility] [address] [address] Mily Prabhakar MD 703 [facility] 2, [address] [place] [address] documented as of this encounter Procedures Procedure Name Priority Date/Time Associated Diagnosis Comments OUTSIDE LAB SCAN 03/31/2024 documented in this encounter Results * OUTSIDE LAB SCAN (03/31/2024) Narrative 03/31/2024 Ordered by an unspecified provider. us Generic Provider Scanning OUTSIDE SCAN Final Result documented in this encounter Visit Diagnoses Not on filedocumented in this encounter Additional Health Concerns Assessment Noted Time A fall risk assessment has been complete d for the patient 11/28/2023 9:37 AM EDT documented as of this encounter Care Teams Plate Stacker Hand Relationship Specialty Start Date End Date Noel Farnsworth MD 112 [facility] 110 [place] [address] PCP - General 10/19/22 documented as of this encounter
--- OUTSIDE RECORDS SUMMARY | 2024-08-08 02:55 | XMS_ITS | Encounter Summary ---
Author Organization [facility] Address [address] [place] [address] Phone Care Team Providers Care Design Editor Name Role Phone Noel Farnsworth MD Primary Care Provider [phone] Encounter Details Date Type Department Care Team (Late st Contact Info) Description 08/16/2022 Orders Only [facility] [address] [place] [address] Conversion, Onbase Social History Tobacco Use Types [...] Description 08/27/2024 9:00 AM EDT Office Visit [facility] 703 [facility] 250 [place] [address] Mily Prabhakar MD 703 [facility] 2, [address] [place] [address] Scheduled Orders Name Type Priority Associated Diagnoses Orde r Schedule OUTSIDE LAB SCAN Lab Ordered: 08/16/2022 documented as of this encounter Visit Diagnoses Not on filedocumented in this encounter Care Teams Design Editor Relationship Specialty Start Date End Date Noel Farnsworth MD [address] [place] [address] PCP - General 10/19/22 documented as of this encounter
--- OUTSIDE RECORDS SUMMARY | 2024-08-08 02:55 | XMS_ITS | Encounter Summary ---
Author Organization [facility] Address [address] [place] [address] Phone Care Team Providers Care Tire Beader Maker Name Role Phone Noel Farnsworth MD Primary Care Provider [phone] Encounter Details Date Type Department Care Team (Late st Contact Info) Description 03/16/2021 Orders Only [facility] [address] [place] [address] Conversion, Onbase Social History Tobacco Use Types [...] Description 08/27/2024 9:00 AM EDT Office Visit [facility] 703 [facility] [address] [place] [phone] Mily Prabhakar MD [address] [facility] [address], [address] [place], [place] [address] Scheduled Orders Name Type Priority Associated Diagnoses Orde r Schedule OUTSIDE LAB SCAN Lab Ordered: 03/16/2021 OUTSIDE LAB SCAN Lab Ordered: 03/16/2021 documented as of this encounter Visit Diagnoses Not on filedocumented in this encounter Care Teams Tire Beader Maker Relationship Specialty Start Date End Date Noel Farnsworth MD [address] [place] [address] PCP - General 10/19/22 documented as of this encounter
--- OUTSIDE RECORDS SUMMARY | 2024-08-08 02:55 | XMS_ITS | Encounter Summary ---
Author Organization [facility] Address [address] [place] [address] Phone Care Team Providers Care Register In Chancery Name Role Phone Noel Farnsworth MD Primary Care Provider [phone] Encounter Details Date Type Department Care Team (Late st Contact Info) Description 1955 Orders Only [facility] [address] [place] [address] Scanning, Generic Provider Social History Tobacco Use [...] Description 08/27/2024 9:00 AM EDT Office Visit [facility] 703 [facility] [address] [place] [address] Mily Prabhakar MD 703 [facility] [address], [address] [place] [address] Scheduled Orders Name Type Priority Associated Diagnoses Orde r Schedule OUTSIDE LAB SCAN Lab Ordered: 1955 documented as of this encounter Visit Diagnoses Not on filedocumented in this encounter Care Teams Register In Chancery Relationship Specialty Start Date End Date Noel Farnsworth MD [address] [place] [address] PCP - General 10/19/22 documented as of this encounter
--- OUTSIDE RECORDS SUMMARY | 2024-08-08 02:55 | XMS_ITS | Encounter Summary ---
Author Organization [facility] [place] Address [address] [place] [address] Phone Care Team Providers Care Electrostatic Paint Operator Name Role Phone Noel Farnsworth MD Primary Care Provider [phone] Encounter Details Date Type Department Care Team (Late st Contact Info) Description 04/12/2022 Orders Only [facility] [address] [place] [address] Conversion, Onbase Social History Tobacco Use Types [...] Description 08/27/2024 9:00 AM EDT Office Visit [facility] 703 [facility] 250 [place] [address] Mily Prabhakar MD 703 [facility] 2, [address] [place] [address] Scheduled Orders Name Type Priority Associated Diagnoses Orde r Schedule OUTSIDE LAB SCAN Lab Ordered: 04/12/2022 documented as of this encounter Visit Diagnoses Not on filedocumented in this encounter Care Teams Electrostatic Paint Operator Relationship Specialty Start Date End Date Noel Farnsworth MD [address] [place] [address] PCP - General 10/19/22 documented as of this encounter
--- OUTSIDE RECORDS SUMMARY | 2024-08-08 02:55 | XMS_ITS | Encounter Summary ---
Author Organization [facility] Address [address] [place] [address] Phone Care Team Providers Care Polishing Machine Operator Helper Name Role Phone Noel Farnsworth MD Primary Care Provider [phone] Encounter Details Date Type Department Care Team (Late st Contact Info) Description 11/01/2023 Scanned Document [facility] [address] [place] [address] Scanning, Generic Provider Social History Tobacco Use [...] Description 08/27/2024 9:00 AM EDT Office Visit [facility] [address] [address] Mily Prabhakar MD 703 [facility] 2, [address] [place] [address] documented as of this encounter Procedures Procedure Name Priority Date/Time Associated Diagnosis Comments OUTSIDE LAB SCAN 11/01/2023 documented in this encounter Results * OUTSIDE LAB SCAN (11/01/2023) Narrative 11/01/2023 Ordered by an unspecified provider. us Generic Provider Scanning OUTSIDE SCAN Final Result documented in this encounter Visit Diagnoses Not on filedocumented in this encounter Additional Health Concerns Assessment Noted Time A fall risk assessment has been complete d for the patient 05/13/2023 2:19 PM EST documented as of this encounter Care Teams Polishing Machine Operator Helper Relationship Specialty Start Date End Date Noel Farnsworth MD 112 [facility] 110 [place] [address] PCP - General 10/19/22 documented as of this encounter
--- OUTSIDE RECORDS SUMMARY | 2024-08-08 02:55 | XMS_ITS | Encounter Summary ---
Author Organization [facility] Address [address] [place] [address] Phone Care Team Providers Care Supervisor Extrusion Name Role Phone Noel Farnsworth MD Primary Care Provider [phone] Encounter Details Date Type Department Care Team (Late st Contact Info) Description 10/24/2022 Orders Only [facility] [address] [place] [address] Conversion, Onbase Social History Tobacco Use Types [...] Description 08/27/2024 9:00 AM EDT Office Visit [facility] 703 [facility] 250 [place] [address] Mily Prabhakar MD 703 [facility] 2, [address] [place] [address] Scheduled Orders Name Type Priority Associated Diagnoses Orde r Schedule OUTSIDE LAB SCAN Lab Ordered: 10/24/2022 documented as of this encounter Visit Diagnoses Not on filedocumented in this encounter Care Teams Supervisor Extrusion Relationship Specialty Start Date End Date Noel Farnsworth MD [address] [place] [address] PCP - General 10/19/22 documented as of this encounter
--- OUTSIDE RECORDS SUMMARY | 2024-08-08 02:55 | XMS_ITS | Encounter Summary ---
Author Organization [facility] Address [address] [place] [address] Phone Care Team Providers Care Mail Distributor Name Role Phone Noel Farnsworth MD Primary Care Provider [phone] Encounter Details Date Type Department Care Team (Late st Contact Info) Description 12/04/2022 Orders Only [facility] [address] [place] [address] Conversion, Onbase Social History Tobacco Use Types [...] Description 08/27/2024 9:00 AM EDT Office Visit [facility] 703 [facility] [address] [place] [address] Mily Prabhakar MD [address] [facility] [address], [address] [place], [place] [address] Scheduled Orders Name Type Priority Associated Diagnoses Orde r Schedule OUTSIDE LAB SCAN Lab Ordered: 12/04/2022 OUTSIDE LAB SCAN Lab Ordered: 12/04/2022 documented as of this encounter Visit Diagnoses Not on filedocumented in this encounter Care Teams Mail Distributor Relationship Specialty Start Date End Date Noel Farnsworth MD [address] [place] [address] PCP - General 10/19/22 documented as of this encounter
--- OUTSIDE RECORDS SUMMARY | 2024-08-08 02:55 | XMS_ITS | Encounter Summary ---
Author Organization [facility] Address [address] [place] [address] Phone Care Team Providers Care Printing Plate Maker Name Role Phone Noel Farnsworth MD Primary Care Provider [phone] Encounter Details Date Type Department Care Team (Late st Contact Info) Description 01/07/2024 Scanned Document [facility] [address] [place] [address] Scanning, Generic Provider Social History Tobacco Use [...] Description 08/27/2024 9:00 AM EDT Office Visit [facility] [address] [address] Mily Prabhakar MD 703 [employer] 2, [address] [place] [address] documented as of this encounter Procedures Procedure Name Priority Date/Time Associated Diagnosis Comments OUTSIDE LAB SCAN 01/07/2024 documented in this encounter Results * OUTSIDE LAB SCAN (01/07/2024) Narrative 01/07/2024 Ordered by an unspecified provider. us Generic Provider Scanning OUTSIDE SCAN Final Result documented in this encounter Visit Diagnoses Not on filedocumented in this encounter Additional Health Concerns Assessment Noted Time A fall risk assessment has been complete d for the patient 11/28/2023 9:37 AM EDT documented as of this encounter Care Teams Printing Plate Maker Relationship Specialty Start Date End Date Noel Farnsworth MD 112 [facility] 110 [place] [address] PCP - General 10/19/22 documented as of this encounter
--- OUTSIDE RECORDS SUMMARY | 2024-08-08 02:55 | XMS_ITS | Encounter Summary ---
Author Organization [facility] Address [address] [place] [address] Phone Care Team Providers Care Advertising Material Distributor Name Role Phone Noel Farnsworth MD Primary Care Provider Encounter Details Date Type Department Care Team (Late st Contact Info) Description 11/10/2021 Orders Only [facility] [address] [place] [address] Conversion, Onbase Social History Tobacco Use Types [...] Description 08/27/2024 9:00 AM EDT Office Visit [facility] 703 [employer] 250 [place] [address] Mily Prabhakar MD 703 [facility] 2, [address] [place] [address] Scheduled Orders Name Type Priority Associated Diagnoses Orde r Schedule OUTSIDE LAB SCAN Lab Ordered: 11/10/2021 documented as of this encounter Visit Diagnoses Not on filedocumented in this encounter Care Teams Advertising Material Distributor Relationship Specialty Start Date End Date Noel Farnsworth MD [address] [place] [address] PCP - General 10/19/22 documented as of this encounter
--- OUTSIDE RECORDS SUMMARY | 2024-08-08 02:55 | XMS_ITS | Encounter Summary ---
Author Organization [facility] Address [address] [place] [address] Phone Care Team Providers Care Accounts Payable Lead Name Role Phone Noel Farnsworth MD Primary Care Provider Encounter Details Date Type Department Care Team (Late st Contact Info) Description 07/05/2022 Orders Only [facility] [address] [place] [address] Conversion, Onbase Social History Tobacco Use Types [...] Office Visit [facility] 703 [facility] 250 [place] [address] Mily Prabhakar MD 703 [facility] 2, [address] [place] [address] Scheduled Orders Name Type Priority Associated Diagnoses Orde r Schedule OUTSIDE LAB SCAN Lab Ordered: 07/05/2022 documented as of this encounter Visit Diagnoses Not on filedocumented in this encounter Care Teams Accounts Payable Lead Relationship Specialty Start Date End Date Noel Farnsworth MD [address] [place] [address] PCP - General 10/19/22 documented as of this encounter
--- OUTSIDE RECORDS SUMMARY | 2024-08-08 02:55 | XMS_ITS | Encounter Summary ---
Author Organization [facility] Address [address] [place] [address] Phone Care Team Providers Care Automatic Oven Operator Name Role Phone Noel Farnsworth MD Primary Care Provider [phone] Encounter Details Date Type Department Care Team (Late st Contact Info) Description 11/01/2022 Orders Only [facility] [address] [place] [address] Conversion, Onbase Social History Tobacco Use Types [...] Description 08/27/2024 9:00 AM EDT Office Visit [facility] 703 [facility] 250 [place] [address] Mily Prabhakar MD 703 [facility] 2, [address] [place] [address] Scheduled Orders Name Type Priority Associated Diagnoses Orde r Schedule OUTSIDE LAB SCAN Lab Ordered: 11/01/2022 documented as of this encounter Visit Diagnoses Not on filedocumented in this encounter Care Teams Automatic Oven Operator Relationship Specialty Start Date End Date Noel Farnsworth MD [address] [place] [address] PCP - General 10/19/22 documented as of this encounter
--- OUTSIDE RECORDS SUMMARY | 2024-08-08 02:55 | XMS_ITS | Encounter Summary ---
Author Organization [facility] Address [address] [place] [address] Phone Care Team Providers Care Television Servicer Name Role Phone Noel Farnsworth MD Primary Care Provider [phone] Encounter Details Date Type Department Care Team (Late st Contact Info) Description 08/03/2020 Orders Only [facility] [address] [place] [address] Conversion, Onbase Social History Tobacco Use Types [...] Description 08/27/2024 9:00 AM EDT Office Visit [facility] 703 [facility] 250 [place] [address] Mily Prabhakar MD 703 [facility] 2, [address] [place] [address] Scheduled Orders Name Type Priority Associated Diagnoses Orde r Schedule OUTSIDE LAB SCAN Lab Ordered: 08/03/2020 documented as of this encounter Visit Diagnoses Not on filedocumented in this encounter Care Teams Television Servicer Relationship Specialty Start Date End Date Noel Farnsworth MD [address] [place] [address] PCP - General 10/19/22 documented as of this encounter
--- OUTSIDE RECORDS SUMMARY | 2024-08-08 02:55 | XMS_ITS | Encounter Summary ---
Author Organization [facility] Address [address] [place] [address] Phone Care Team Providers Care Remelt Pan Tank Operator Name Role Phone Noel Farnsworth MD Primary Care Provider [phone] Encounter Details Date Type Department Care Team (Late st Contact Info) Description 11/16/2020 Orders Only [facility] [address] [place] [address] Conversion, Onbase Social History Tobacco Use Types [...] Description 08/27/2024 9:00 AM EDT Office Visit [facility] 703 [facility] 250 [place] [address] Mily Prabhakar MD 703 [facility] 2, [address] [place] [address] Scheduled Orders Name Type Priority Associated Diagnoses Orde r Schedule OUTSIDE LAB SCAN Lab Ordered: 11/16/2020 documented as of this encounter Visit Diagnoses Not on filedocumented in this encounter Care Teams Remelt Pan Tank Operator Relationship Specialty Start Date End Date Noel Farnsworth MD [address] [place] [address] PCP - General 10/19/22 documented as of this encounter
--- OUTSIDE RECORDS SUMMARY | 2024-08-08 02:55 | XMS_ITS | Encounter Summary ---
Author [facility] Address [id number] [address] [place] [address] Care Team Providers Care Pan Reclaim Processor Name Role Phone Noel Farnsworth MD Primary Care Provider [phone] Encounter Details Date Type Department Care Team (Late Contact Info) Description 07/10/2024 Orders Only [facility] Department of [facility] [address] [address] Annie Clancy CMA Vitamin D deficiency; Subclinical hypothyroidism Social History Tobacco Use Types Packs/Day Years [...] got money to buy more. Never True 06/23/2024 Within the past 12 months th e food we bought just didn't last and we didn't have money to get more. Never True 06/23/2024 Comments Unknown Sex and Gender Information Value Date Recorded Sex Assigned at Not on file Legal Sex Female 12:06 PM EDT Gender Identity Not on file Sexual Orientation Not on file documented as of this encounter Plan of Treatment Upcoming Encounters Date Type Department Care Team (Late Contact Info) Description 06/22/2025 9:30 AM EDT Office Visit [facility] Adult Endocrinology, A Department of [facility] [address] [address] Trung Richardson MD [address] [place] [address] documented as of this encounter Procedures Procedure Name Priority Date/Time Associated Diagnosis Comments THYROID PROFILE INCLUDES TSH FT4 Routine 06/09/2024 9:45 AM EDT Subclinical hypothyroidism VITAMIN D 25 HYDROXY Routine 06/09/2024 9:45 AM EDT Vitamin D deficiency documented in this encounter Results * Thyroid profile includes TSH FT4 (06/09/2024 9:45 AM EDT) T4, free 0.95 0.76 - 1.46 Blood 06/09/2024 9:45 AM EDT Trung Rivas MD LAB BLOOD ORDERA BLES Final Result * Vitamin D 25 hydroxy (06/09/2024 9:45 AM EDT) External Vitamin D 25-Hydroxy 64.5 30 - 100 Blood 06/09/2024 9:45 AM EDT Trung Rivas MD LAB BLOOD ORDERA BLES Final Result documented in this encounter Visit Diagnoses Diagnosis Vitamin D deficiency Subclinical hypothyroidism Other specified acquired hypothyroidism documented in this encounter Care Teams Pan Reclaim Processor Relationship Specialty Start Date End Date Noel Farnsworth MD 112 [facility] [address] [place] [address] PCP - General Internal Medicine 06/13/22 documented as of this encounter
--- OUTSIDE RECORDS SUMMARY | 2024-08-08 02:55 | XMS_ITS | Encounter Summary ---
Author Organization [facility] Address [address] [place] [address] Phone Care Team Providers Care Aircraft Stress Analyst Name Role Phone Noel Farnsworth MD Primary Care Provider [phone] Encounter Details Date Type Department Care Team (Late st Contact Info) Description 06/13/2020 Orders Only [facility] [address] [place] [address] Conversion, Onbase Social History Tobacco Use Types [...] Description 08/27/2024 9:00 AM EDT Office [facility] 703 [facility] 250 [place] [address] Mily Prabhakar MD 703 [facility] 2, [address] [place] [address] Scheduled Orders Name Type Priority Associated Diagnoses Orde r Schedule OUTSIDE LAB SCAN Lab Ordered: 06/13/2020 documented as of this encounter Visit Diagnoses Not on filedocumented in this encounter Care Teams Aircraft Stress Analyst Relationship Specialty Start Date End Date Noel Farnsworth MD [address] [place] [address] PCP - General 10/19/22 documented as of this encounter
--- OUTSIDE RECORDS SUMMARY | 2024-08-08 02:55 | XMS_ITS | Encounter Summary ---
Author Organization [facility] Address [address] [place] [address] Phone Care Team Providers Care Seat Cover Installer Name Role Phone Noel Farnsworth MD Primary Care Provider [phone] Reason for Visit * Reason Comments Med Refill Encounter Details Date Type Department Care Team (Late st Contact Info) Description 08/06/[address] [place] [address] Mily Prabhakar MD 3 [facility] 2, [address] [address] Hypokalemia Social History Tobacco Use Types Packs/Day Years [...] Description 08/27/2024 9:00 AM EDT Office Visit [place] [id number] [facility] 250 [place] [address] Mily Prabhakar MD 3 [facility] 2, [facility] 250 [place] [address] documented as of this encounter Visit Diagnoses Diagnosis Hypokalemia Hypopotassemia documented in this encounter Additional Health Concerns Assessment Noted Time A fall risk assessment has been complete d for the patient 11/28/2023 9:37 AM EDT documented as of this encounter Care Teams Seat Cover Installer Relationship Specialty Start Date End Date Noel Farnsworth MD 112 [facility] 110 [place] [address] PCP - General 10/19/22 documented as of this encounter
--- OUTSIDE RECORDS SUMMARY | 2024-08-08 02:55 | XMS_ITS | Encounter Summary ---
Author Organization [facility] Address [address] [place] [address] Phone Care Team Providers Care Aeronautical Products Sales Engineer Name Role Phone Noel Farnsworth MD Primary Care Provider [phone] Encounter Details Date Type Department Care Team (Late st Contact Info) Description 04/02/2022 Orders Only [facility] [address] [place] [address] Conversion, Onbase Social History Tobacco Use Types [...] Description 08/27/2024 9:00 AM EDT Office Visit [facility] 703 [facility] 250 [place] [address] Mily Prabhakar MD 703 [facility] 2, [address] [place] [address] Scheduled Orders Name Type Priority Associated Diagnoses Orde r Schedule OUTSIDE LAB SCAN Lab Ordered: 04/02/2022 documented as of this encounter Visit Diagnoses Not on filedocumented in this encounter Care Teams Aeronautical Products Sales Engineer Relationship Specialty Start Date End Date Noel Farnsworth MD [address] [place] [address] PCP - General 10/19/22 documented as of this encounter
--- OUTSIDE RECORDS SUMMARY | 2024-08-08 02:55 | XMS_ITS | Encounter Summary ---
Author Organization [facility] Address [id number] [address] [place] [address] Care Team Providers Care Distributor Sales Consultant Name Role Phone Noel Farnsworth MD Primary Care Provider [phone] Encounter Details Date Type Department Care Team (Late Contact Info) Description 07/10/2024 [facility] Department of [facility] [address] [phone] Sofia Vásquez CNA Subclinical hypothyroidism Social History Tobacco Use Types [...] Description 06/22/2025 9:30 AM EDT Office Visit [facility] Adult Endocrinology, A Department of [facility] [address] [phone] Trung Richardson MD [address] [facility] [address] [place] [address] documented as of this encounter Procedures Procedure Name Priority Date/Time Associated Diagnosis Comments COMPREHENSIVE METABOLIC PANEL Routine 06/09/2024 Subclinical hypothyroidism documented in this encounter Results * Comprehensive metabolic panel (06/09/2024) Blood 06/09/2024 us Trung Rivas MD LAB BLOOD ORDERA BLES Final Result MANUALLY TRANSCRIBED RESULTS documented in this encounter Visit Diagnoses Diagnosis Subclinical hypothyroidism Other specified acquired hypothyroidism documented in this encounter Care Teams Distributor Sales Consultant Relationship Specialty Start Date End Date Noel Farsnworth MD 112 [facility], [facility] 110 [place] [address] PCP - General Internal Medicine 06/13/22 documented as of this encounter
--- OUTSIDE RECORDS SUMMARY | 2024-08-08 02:55 | XMS_ITS | Encounter Summary ---
Author Organization [facility] Address [address] [place] [address] Phone Care Team Providers Care College Of Education Dean Name Role Phone Noel Farnsworth MD Primary Care Provider [phone] Encounter Details Date Type Department Care Team (Late st Contact Info) Description 04/29/2024 Scanned Document [facility] [address] [place] [phone] Scanning, Generic Provider Social History Tobacco Use [...] Description 08/27/2024 9:00 AM EDT Office Visit [facility] [address] [address] Mily Prabhakar MD 703 [facility] 2, [address] [place] [address] documented as of this encounter Procedures Procedure Name Priority Date/Time Associated Diagnosis Comments OUTSIDE LAB SCAN 04/29/2024 documented in this encounter Results * OUTSIDE LAB SCAN (04/29/2024) Narrative 04/29/2024 Ordered by an unspecified provider. us Generic Provider Scanning OUTSIDE SCAN Final Result documented in this encounter Visit Diagnoses Not on filedocumented in this encounter Additional Health Concerns Assessment Noted Time A fall risk assessment has been complete d for the patient 11/28/2023 9:37 AM EDT documented as of this encounter Care Teams College [employer] Dean Relationship Specialty Start Date End Date Noel Farnsworth MD 112 [facility] 110 [place] [address] PCP - General 10/19/22 documented as of this encounter
--- OUTSIDE RECORDS SUMMARY | 2024-08-08 02:55 | XMS_ITS | Encounter Summary ---
Author Organization [facility] Address [address] [place] [address] Phone Care Team Providers Care Charger Operator Name Role Phone Noel Farnsworth MD Primary Care Provider Encounter Details Date Type Department Care Team (Late st Contact Info) Description 11/06/2023 Scanned Document [facility] [address] [place] [phone] Scanning, Generic Provider Social History Tobacco Use [...] Description 08/27/2024 9:00 AM EDT Office Visit [facility] [address] [address] Mily Prabhakar MD 703 [facility] 2, [address] [place] [address] documented as of this encounter Procedures Procedure Name Priority Date/Time Associated Diagnosis Comments OUTSIDE LAB SCAN 11/06/2023 documented in this encounter Results * OUTSIDE LAB SCAN (11/06/2023) Narrative 11/06/2023 Ordered by an unspecified provider. us Generic Provider Scanning OUTSIDE SCAN Final Result documented in this encounter Visit Diagnoses Not on filedocumented in this encounter Additional Health Concerns Assessment Noted Time A fall risk assessment has been complete d for the patient 05/13/2023 2:19 PM EST documented as of this encounter Care Teams Charger Operator Relationship Specialty Start Date End Date Noel Farnsworth MD 112 [facility] 110 [place] [address] PCP - General 10/19/22 documented as of this encounter
--- OUTSIDE RECORDS SUMMARY | 2024-08-08 02:55 | XMS_ITS | Encounter Summary ---
Author Organization [facility] Address [address] [place] [address] Phone Care Team Providers Care Deck Mechanic Name Role Phone Noel Farnsworth MD Primary Care Provider [phone] Encounter Details Date Type Department Care Team (Late st Contact Info) Description 07/23/2024 Scanned Document [facility] [address] [place] [phone] Scanning, Generic Provider Social History Tobacco Use [...] Description 08/27/2024 9:00 AM EDT Office Visit [facility] [address] [address] Mily Prabhakar MD 703 [facility] 2, [address] [place] [address] documented as of this encounter Procedures Procedure Name Priority Date/Time Associated Diagnosis Comments OUTSIDE LAB SCAN 07/23/2024 documented in this encounter Results * OUTSIDE LAB SCAN (07/23/2024) Narrative 07/23/2024 Ordered by an unspecified provider. us Generic Provider Scanning OUTSIDE SCAN Final Result documented in this encounter Visit Diagnoses Not on filedocumented in this encounter Additional Health Concerns Assessment Noted Time A fall risk assessment has been complete d for the patient 11/28/2023 9:37 AM EDT documented as of this encounter Care Teams Deck Mechanic Relationship Specialty Start Date End Date Noel Farnsworth MD 112 [facility] 110 [place] [address] PCP - General 10/19/22 documented as of this encounter
--- OUTSIDE RECORDS SUMMARY | 2024-08-08 02:55 | XMS_ITS | Encounter Summary ---
Author Organization [facility] Address [address] [place] [address] Phone Care Team Providers Care Aviation Project Engineer Name Role Phone Noel Farnsworth MD Primary Care Provider [phone] Encounter Details Date Type Department Care Team (Late st Contact Info) Description 02/18/2024 Scanned Document [facility] [address] [place] [phone] Scanning, Generic Provider Social History Tobacco Use [...] Office Visit [facility] [address] [address] Mily Prabhakar MD 703 [facility] 2, [address] [place] [address] documented as of this encounter Procedures Procedure Name Priority Date/Time Associated Diagnosis Comments OUTSIDE LAB SCAN 02/18/2024 documented in this encounter Results * OUTSIDE LAB SCAN (02/18/2024) Narrative 02/18/2024 Ordered by an unspecified provider. us Generic Provider Scanning OUTSIDE SCAN Final Result documented in this encounter Visit Diagnoses Not on filedocumented in this encounter Additional Health Concerns Assessment Noted Time A fall risk assessment has been complete d for the patient 11/28/2023 9:37 AM EDT documented as of this encounter Care Teams Aviation Project Engineer Relationship Specialty Start Date End Date Noel Farnsworth MD 112 [facility] 110 [place] [address] PCP - General 10/19/22 documented as of this encounter
--- OUTSIDE RECORDS SUMMARY | 2024-08-08 02:55 | XMS_ITS | Encounter Summary ---
Author Organization [facility] Address [address] [place] [address] Phone Care Team Providers Care Surveillance Operator Name Role Phone Noel Farnsworth MD Primary Care Provider [phone] Encounter Details Date Type Department Care Team (Late st Contact Info) Description 10/26/2022 Orders Only [facility] [address] [place] [address] Conversion, Onbase Social History Tobacco Use Types [...] Description 08/27/2024 9:00 AM EDT Office Visit [facility] 703 [facility] 250 [place] [address] Mily Prabhakar MD 703 [facility] 2, [address] [place] [address] Scheduled Orders Name Type Priority Associated Diagnoses Orde r Schedule OUTSIDE LAB SCAN Lab Ordered: 10/26/2022 documented as of this encounter Visit Diagnoses Not on filedocumented in this encounter Care Teams Surveillance Operator Relationship Specialty Start Date End Date Noel Farnsworth MD [address] [place] [address] PCP - General 10/19/22 documented as of this encounter
--- OUTSIDE RECORDS SUMMARY | 2024-08-08 02:55 | XMS_ITS | Encounter Summary ---
Author Organization [facility] Address [address] [place] [address] Phone Care Team Providers Care Court Messenger Name Role Phone Noel Farnsworth MD Primary Care Provider [phone] Reason for Visit * Reason Comments Med Refill Encounter Details Date Type Department Care Team (Late Contact Info) Description 06/16/[address] [address] Mily Prabhakar MD [address] [place] [address] 2, [address] [address] Essential hypertension Social History Tobacco Use Types Packs/Day Years [...] Department Care Team (Late Contact Info) Description 08/27/2024 9:00 AM EDT Office Visit [address] [address] Mily Prabhakar MD [address] [place] [address] 2, [address] [address] documented as of this encounter Visit Diagnoses Diagnosis Essential hypertension Unspecified essential hypertension documented in this encounter Additional Health Concerns Assessment Noted Time A fall risk assessment has been complete d for the patient 11/28/2023 9:37 AM EDT documented as of this encounter Care Teams Court Messenger Relationship Specialty Start Date End Date Noel Farnsworth MD 112 [facility] 110 [place] [address] PCP - General 10/19/22 documented as of this encounter
--- OUTSIDE RECORDS SUMMARY | 2024-08-08 02:55 | XMS_ITS | Encounter Summary ---
Author Organization [facility] Address [address] [place] [address] Phone Care Team Providers Care Hydrometer Tester Name Role Phone Noel Farnsworth MD Primary Care Provider [phone] Encounter Details Date Type Department Care Team (Late st Contact Info) Description 11/13/2022 Orders Only [facility] [address] [place] [address] Conversion, Onbase Social History Tobacco Use Types [...] Description 08/27/2024 9:00 AM EDT Office Visit [facility] 703 [facility] 250 [place] [address] Mily Prabhakar MD 703 [facility] 2, [address] [place] [address] Scheduled Orders Name Type Priority Associated Diagnoses Orde r Schedule OUTSIDE LAB SCAN Lab Ordered: 11/13/2022 documented as of this encounter Visit Diagnoses Not on filedocumented in this encounter Care Teams Hydrometer Tester Relationship Specialty Start Date End Date Neol Farnsworth MD [address] [place] [address] PCP - General 10/19/22 documented as of this encounter
--- OUTSIDE RECORDS SUMMARY | 2024-08-08 02:55 | XMS_ITS | Encounter Summary ---
Author Organization [facility] Address [address] [place] [address] Phone Care Team Providers Care Target Man Name Role Phone Noel Farnsworth MD Primary Care Provider [phone] Encounter Details Date Type Department Care Team (Late st Contact Info) Description 08/30/2022 Orders Only [facility] [address] [place] [address] Conversion, Onbase Social History Tobacco Use Types [...] AM EDT Office Visit [facility] 703 [facility] 250 [place] [address] Mily Prabhakar MD [address] [facility] 2, [address] [place] [address] Scheduled Orders Name Type Priority Associated Diagnoses Orde r Schedule OUTSIDE LAB SCAN Lab Ordered: 08/30/2022 documented as of this encounter Visit Diagnoses Not on filedocumented in this encounter Care Teams Target Man Relationship Specialty Start Date End Date Noel Farnsworth MD [address] [place] [address] PCP - General 10/19/22 documented as of this encounter
--- OUTSIDE RECORDS SUMMARY | 2024-08-08 02:55 | XMS_ITS | Encounter Summary ---
Author Organization [facility] Address [address] [place] [address] Phone Care Team Providers Care Leather Goods Assembler Name Role Phone Noel Farnsworth MD Primary Care Provider [phone] Encounter Details Date Type Department Care Team (Late st Contact Info) Description 07/20/2020 Orders Only [facility] [address] [place] [address] Conversion, Onbase Social History Tobacco Use Types [...] Description 08/27/2024 9:00 AM EDT Office Visit [facility] 703 [facility] 250 [place] [address] Mily Prabhakar MD 703 [facility] 2, [address] [place] [address] Scheduled Orders Name Type Priority Associated Diagnoses Orde r Schedule OUTSIDE LAB SCAN Lab Ordered: 07/20/2020 documented as of this encounter Visit Diagnoses Not on filedocumented in this encounter Care Teams Leather Goods Assembler Relationship Specialty Start Date End Date Noel Farnsworth MD [address] [place] [address] PCP - General 10/19/22 documented as of this encounter
--- OUTSIDE RECORDS SUMMARY | 2024-08-08 02:55 | XMS_ITS | Encounter Summary ---
Author Organization [facility] Address [address] [place] [address] Phone Care Team Providers Care Weather Strip Installer Name Role Phone Noel Farnsworth MD Primary Care Provider [phone] Encounter Details Date Type Department Care Team (Late st Contact Info) Description 2020 Orders Only [facility] [address] [place] [address] Conversion, Onbase Social History Tobacco Use Types [...] Description 08/27/2024 9:00 AM EDT Office Visit [facility] 703 [facility] 250 [place] [address] Mily Prabhakar MD 703 [facility] 2, [address] [place] [address] Scheduled Orders Name Type Priority Associated Diagnoses Orde r Schedule OUTSIDE LAB SCAN Lab Ordered: 2020 documented as of this encounter Visit Diagnoses Not on filedocumented in this encounter Care Teams Weather Strip Installer Relationship Specialty Start Date End Date Noel Farnsworth MD [address] [place] [address] PCP - General 10/19/22 documented as of this encounter
--- OUTSIDE RECORDS SUMMARY | 2024-08-08 02:55 | XMS_ITS | Encounter Summary ---
Author Organization [facility] Address [address] [place] [address] Phone Care Team Providers Care Impregnator Name Role Phone Noel Farnsworth MD Primary Care Provider [phone] Encounter Details Date Type Department Care Team (Late st Contact Info) Description 08/10/2020 Orders Only [facility] [address] [place] [address] Conversion, Onbase Social History Tobacco Use Types [...] AM EDT Office Visit [facility] 703 [facility] 250 [place] [address] Mily Prabhakar MD 703 [facility] 2, [address] [place] [address] Scheduled Orders Name Type Priority Associated Diagnoses Orde r Schedule OUTSIDE LAB SCAN Lab Ordered: 08/10/2020 documented as of this encounter Visit Diagnoses Not on filedocumented in this encounter Care Teams Impregnator Relationship Specialty Start Date End Date Noel Farnsworth MD [address] [place] [address] PCP - General 10/19/22 documented as of this encounter
--- OUTSIDE RECORDS SUMMARY | 2024-08-08 02:55 | XMS_ITS | Encounter Summary ---
Author Organization [facility] Address [address] [place] [address] Phone Care Team Providers Care Senior Sharepoint Architect Name Role Phone Noel Farnsworth MD Primary Care Provider [phone] Encounter Details Date Type Department Care Team (Late st Contact Info) Description 11/17/2020 Orders Only [facility] [address] [place] [address] Conversion, Onbase Social History Tobacco Use Types [...] EDT Office Visit [facility] 703 [facility] [address] [place] [phone] Mily Prabhakar MD [address] [facility] [address], [address] [place], [place] [address] Scheduled Orders Name Type Priority Associated Diagnoses Orde r Schedule OUTSIDE LAB SCAN Lab Ordered: 11/17/2020 OUTSIDE LAB SCAN Lab Ordered: 11/17/2020 documented as of this encounter Visit Diagnoses Not on filedocumented in this encounter Care Teams Senior Sharepoint Architect Relationship Specialty Start Date End Date Noel Farnsworth MD [address] [place] [address] PCP - General 10/19/22 documented as of this encounter
--- OUTSIDE RECORDS SUMMARY | 2024-08-08 02:55 | XMS_ITS | Encounter Summary ---
Author Organization [facility] Address [address] [place] [address] Phone Care Team Providers Care Pipe Jeeper Name Role Phone Noel Farnsworth MD Primary Care Provider [phone] Encounter Details Date Type Department Care Team (Late st Contact Info) Description 07/27/2020 Orders Only [facility] [address] [place] [address] Conversion, Onbase Social History Tobacco Use Types [...] Description 08/27/2024 9:00 AM EDT Office Visit [facility] 703 [facility] 250 [place] [address] Mily Prabhakar MD 703 [facility] 2, [address] [place] [address] Scheduled Orders Name Type Priority Associated Diagnoses Orde r Schedule OUTSIDE LAB SCAN Lab Ordered: 07/27/2020 documented as of this encounter Visit Diagnoses Not on filedocumented in this encounter Care Teams Pipe Jeeper Relationship Specialty Start Date End Date Noel Farnsworth MD [address] [place] [address] PCP - General 10/19/22 documented as of this encounter
--- OUTSIDE RECORDS SUMMARY | 2024-08-08 02:55 | XMS_ITS | Encounter Summary ---
Author Organization [facility] Address [address] [place] [address] Phone Care Team Providers Care Insurance Examining Clerk Name Role Phone Noel Farnsworth MD Primary Care Provider Encounter Details Date Type Department Care Team (Late st Contact Info) Description 12/28/2021 Orders Only [facility] [address] [place] [address] Conversion, Onbase Social History Tobacco Use Types [...] Description 08/27/2024 9:00 AM EDT Office Visit [facility] 703 [facility] 250 [place] [address] Mily Prabhakar MD 703 [facility] 2, [address] [place] [address] Scheduled Orders Name Type Priority Associated Diagnoses Orde r Schedule OUTSIDE LAB SCAN Lab Ordered: 12/28/2021 documented as of this encounter Visit Diagnoses Not on filedocumented in this encounter Care Teams Insurance Examining Clerk Relationship Specialty Start Date End Date Noel Farnsworth MD [address] [place] [address] PCP - General 10/19/22 documented as of this encounter
--- OUTSIDE RECORDS SUMMARY | 2024-08-08 02:55 | XMS_ITS | Encounter Summary ---
Author Organization [facility] Address [address] [place] [address] Phone Care Team Providers Care Engineer Chief Name Role Phone Noel Farnsworth MD Primary Care Provider [phone] Encounter Details Date Type Department Care Team (Late st Contact Info) Description 03/17/2024 Scanned Document [facility] [address] [place] [address] Scanning, Generic Provider Social History Tobacco Use [...] Description 08/27/2024 9:00 AM EDT Office Visit [facility] [address] [address] Mily Prabhakar MD 703 [facility] 2, [address] [place] [address] documented as of this encounter Procedures Procedure Name Priority Date/Time Associated Diagnosis Comments OUTSIDE LAB SCAN 03/17/2024 documented in this encounter Results * OUTSIDE LAB SCAN (03/17/2024) Narrative 03/17/2024 Ordered by an unspecified provider. us Generic Provider Scanning OUTSIDE SCAN Final Result documented in this encounter Visit Diagnoses Not on filedocumented in this encounter Additional Health Concerns Assessment Noted Time A fall risk assessment has been complete d for the patient 11/28/2023 9:37 AM EDT documented as of this encounter Care Teams Engineer Chief Relationship Specialty Start Date End Date Noel Farnsworth MD 112 [facility] 110 [place] [address] PCP - General 10/19/22 documented as of this encounter
--- OUTSIDE RECORDS SUMMARY | 2024-08-08 02:55 | XMS_ITS | Clinical Summary ---
Author Organization [facility] Address [address] [place] [address] Phone Care Team Providers Care Commercial Agent Name Role Phone Noel Farnsworth MD Primary Care Provider [phone] Allergies Active Allergy Reactions Criticality Noted Date Comments Chlorzoxazone Hives Medium 12/27/2022 Medications BACILLUS COAGULANS-INULIN ORAL Take 1 tablet by mouth once daily. Active calcium carbonate 600 mg calcium (1,500 mg) tablet Take 1 tablet (1,500 mg) by mouth once daily. Active cholecalciferol (Vitamin D-3) 25 MCG (1000 UT) tablet Take 80 tablets (80,000 Units) by mouth once daily. Active ascorbic acid (Vitamin C) 1,000 mg tablet Take 2 tablets (2,000 mg) by mouth once daily. Active cyanocobalamin, vitamin B-12, (VITAMIN B-12 ORAL) Take 1 tablet by mouth once daily. Active docosahexaenoic acid/epa (FISH OIL ORAL) Take 1,400 mg by mouth once daily. Active copper gluconate 2 mg tablet Take 1 tablet by mouth once daily. Active multivitamin capsule Take 1 capsule by mouth once daily. Active famotidine (Pepcid) 20 mg tablet Take 1 tablet (20 mg) by mouth as needed at bedtime. 1 Active ferrous sulfate 325 (65 Fe) MG tablet Take 1 tablet (325 mg) by mouth 2 times a day. 0 Active loratadine (Claritin) 10 mg tablet Take 1 tablet (10 mg) by mouth once daily as needed for allergies. Active pantoprazole (ProtoNix) 40 mg EC tablet Take 1 tablet (40 mg) by mouth once daily. 0 Active warfarin (Coumadin) 2.5 mg tablet Take by mouth. As directed by [facility] 1 Active zinc gluconate 50 mg tablet Take 1 tablet (50 mg) by mouth once daily. Active MAGNESIUM ORAL Take 400 mg by mouth once daily. Active turmeric root extract 500 mg tablet Take 1 tablet by mouth once daily. Active torsemide (Demadex) 20 mg tabletIndications :Essential hypertension TAKE 1 TABLET BY MOUTH DAILY 90 tablet 3 4 Active metoprolol tartrate (Lopressor) 25 mg tabletIndications :Essential hypertension TAKE 1 TABLET BY MOUTH TWICE DAILY 180 tablet 3 4 Active spironolactone (Aldactone) 25 mg tabletIndications :Essential hypertension Take 1 tablet (25 mg) by mouth once daily. 90 tablet 3 5 Active potassium chloride CR 20 mEq ER tabletIndications :Hypokalemia Take 1 tablet (20 mEq) by mouth 4 times a day. 360 tablet 3 4 07/10/19 25 Active Problems Problem Noted Date Diagnosed Date Iron deficiency anemia 11/28/2023 BMI 39.0-39.9,adult 05/13/2023 Former smoker 05/13/2023 Cellulitis of right lower extremity 12/27/2022 Edema of both legs 12/27/2022 Essential hypertension 12/27/2022 Permanent atrial fibrillation with RVR (Multi) 1 Hypokalemia 12/27/2022 Sleep apnea 12/27/2022 Anticoagulated 12/27/2022 Resolved Problems Problem Noted Date Diagnosed Date Resolved Date High risk medication use 12/27/2022 Encounters Date Type Department Care Team Description 08/06/2024 Refill [facility] [address] [place] [address] Mily Prabhakar MD Hypokalemia 07/23/2024 Scanned Document [facility] [address] [place] [address] Scanning, Generic Provider 06/25/2024 Scanned Document [facility] [address] [place] [address] Scanning, Generic Provider 06/16/2024 Refill [facility] [address] [facility] [address] [place] [address] Mily Prabhakar MD Essential hypertension from Last 3 Months Immunizations Immunization Administration Dates Next Due Pfizer Purple Cap SARS-CoV-2 02/14/2021,07/01/19 21,06/07/2020 Family History Medical History Relation Name Comments Heart attack Brother Throat cancer Brother cva Father parkinson's disease Father cva Mother Relation Name Status Comments Brother Father Mother Social History Tobacco Use Types Packs/Day Years Used Date Smoking Tobacco: Former Cigarettes Q uit: 1982 Tobacco Cessation:Counseling Given: Not Answered Alcohol Use Standard Drinks/Week Comments Yes 0 (1 standard drink = 0.6 oz pur e alcohol) social Comments Unknown Sex and Gender Information Value Date Recorded Sex Assigned at Not on file Legal Sex Female 8:34 PM EST Gender Identity Not on file Sexual Orientation Not on file Last Filed Vital Signs Vital Sign Reading Time Taken Comments Blood Pressure 102/60 11/28/2023 9:41 AM EDT Pulse 66 11/28/2023 9:41 AM EDT Temperature - - Respiratory Rate - - Oxygen Saturation - - Inhaled Oxygen Concentration - - Weight 111 kg (244 lb) 11/28/2023 9:41 AM EDT Height 165.1 cm (5' 5 ) 11/28/2023 9:41 AM EDT Body Mass Index 40.6 11/28/2023 9:41 AM EDT Plan of Treatment Upcoming Encounters Date Type Department Care Team (Late st Contact Info) Description 08/27/2024 9:00 AM EDT Office Visit [facility] [address] [place] [address] [address] [place] [address] Mily Prabhakar MD [address] [facility] [address] [place] [address] Health Maintenance Due Date Last Done Comments CT Colonography 1954 FIT-DNA (Cologuard) 1954 FIT 1954 Lipid Panel 1954 Medicare Annual Wellness Visit (AWV) 1954 Sigmoidoscopy 1954 Diabetes Screening 1972 Hepatitis C Screening 1972 Pneumococcal Vaccine (1 of 2 - PCV) 1973 DTaP/Tdap/Td Vaccines (1 - Tdap) 1976 Zoster Vaccines (1 of 2) 2004 RSV High Risk: (Elderly (60+) or Population) (1 - Risk 60-74 years 1-dose series) 2014 Mammogram 01/17/2023 01/17/2022, 11/2021, 11/23/2020, Additional history exists COVID-19 Vaccine ( season) 2023 02/14/2021, 06/30/2020, 06/07/2020 Influenza Vaccine (Season Ended) 2024 01/07/2012 Bone Density Scan 03/28/2025 03/28/2023, , 07/15/2017 Colonoscopy 03/30/2030 03/30/2020, 03/30/2020 Colorectal Cancer Screening 03/30/2030 Irritable Bowel Syndrome Discontinued 03/30/2020 HIB Vaccines Aged Out No longer eligi ble based on patient's age to complete this topic HPV Vaccines Aged Out No longer eligi ble based on patient's age to complete this topic Hepatitis A Vaccines Aged Out No long er eligible based on patient's age to complete this topic Hepatitis B Vaccines Aged Out No long er eligible based on patient's age to complete this topic IPV Vaccines Aged Out No longer eligi ble based on patient's age to complete this topic Meningococcal Vaccine Aged Out No dejan baldemar eligible based on patient's age to complete this topic Rotavirus Vaccines Aged Out No longer eligible based on patient's age to complete this topic Procedures Procedure Name Priority Date/Time Associated Diagnosis Comments OUTSIDE LAB SCAN 07/23/2024 OUTSIDE LAB SCAN 06/25/2024 from Last 3 Months Results * OUTSIDE LAB SCAN (07/23/2024) Only the most recent of2 resultswithin the time period is included. Narrative 07/23/2024 Ordered by an unspecified provider. Generic Provider Scanning OUTSIDE SCAN Final Result from Last 3 Months Insurance [employer] MEDICARE GENERIC COMMERCIAL [employer] MEDICARE GENERIC COMMERCIAL Care Teams Commercial Agent Relationship Specialty Start Date End Date Noel Farnsworth MD [address] [address] PCP - General 10/19/22
--- OUTSIDE RECORDS SUMMARY | 2024-08-08 02:55 | XMS_ITS | Clinical Summary ---
Author Organization [facility] Address [id number] [address] [place] [address] Care Team Providers Care Tire Maker Name Role Phone Noel Farnsworth MD Primary Care Provider [phone] Allergies Active Allergy Reactions Criticality Noted Date Comments Chlorzoxazone Hives,Other (See Comments) 2007 Gabapentin Other (See Comments) 01/09/2021 Medications ascorbic acid, vitamin C, (VITAMIN C) 1000 mg tablet Vitamin C 1,000 mg tablet Take 1 tablet twice a day by oral route. Active aspirin 81 mg daily. Active ferrous sulfate 325 (65 FE) mg tablet ferrous sulfate 325 mg (65 mg iron) tablet Active fluticasone propionate (FLONASE) 50 mcg/actuation nasal spray Administer 2 sprays into each nostril once daily. 3 Active metoprolol tartrate (LOPRESSOR) 25 mg tablet metoprolol tartrate 25 mg tablet Active potassium chloride 20 mEq tablet extended release Take 1 tablet (20 mEq total) by mouth. Active spironolactone (ALDACTONE) 25 mg tablet Take 2 tablets (50 mg total) by mouth in the morning. 3 Active warfarin (COUMADIN) 5 mg tablet warfarin 5 mg tablet Active torsemide (DEMADEX) 20 mg tablet Take 1 tablet (20 mg total) by mouth daily. 3 Active cholecalciferol (VITAMIN D3) 50,000 units capsule Take 1 capsule (50,000 Units total) by mouth in the morning. 100 capsule 3 5 Active Active Problems Problem Noted Date Diagnosed Date Subclinical hypothyroidism 06/23/2024 Assessment & Plan (06/23/2024 11:06 AM EDT): Continue monitoring. We will obtain thyroid function studies prior to her next appointment Primary hyperparathyroidism 06/18/2023 Assessment & Plan (06/23/2024 11:05 AM EDT): No compelling reasons to recommend parathyroidectomy. We will continue serum calcium monitoring Assessment & Plan (06/18/2023 10:48 AM EDT): No compelling reasons to recommend parathyroidectomy. We will continue serum calcium monitoring Vitamin D deficiency 06/18/2023 Assessment & Plan (06/23/2024 11:06 AM EDT): 25 hydroxy vitamin-D levels at target on current regimen. We will obtain 25 hydroxyvitamin D prior to her next appointment in 1 year Assessment & Plan (06/18/2023 10:48 AM EDT): 25 hydroxy vitamin-D levels at target on current regimen Age-related osteoporosis wit hout current pathological fracture 06/16/2022 Assessment & Plan (06/23/2024 11:05 AM EDT): Patient doing well on calcium and vitamin-D supplementation without clinical evidence of fractures. On a drug holiday after completing 5 years of Reclast. We will obtain a follow-up bone mineral density in March 2025. Fall precautions and the importance of exercise discussed with patient Assessment & Plan (06/18/2023 10:48 AM EDT): Patient doing well on calcium and vitamin-D supplementation without clinical evidence of fractures. On a drug holiday after completing 5 years of Reclast. We will get the report of DEXA scan done last year. Fall precautions and the importance of exercise discussed with patient Assessment & Plan (06/16/2022 5:36 PM EDT): Patient will continue adequate calcium and vitamin-D supplementation. We will obtain a follow-up bone mineral density in January 2023. Fall precautions and the importance of exercise discussed with patient Hyperparathyroidism 06/16/2022 Assessment & Plan (06/16/2022 5:37 PM EDT): 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 She also has primary hyperparathyroidism without compelling reasons to recommend parathyroidectomy. We will continue monitoring PTH and serum calcium levels Encounters Date Type Department Care Team Description 07/10/2024 Orders Only [facility] Adult [facility], A Department of [facility] [address] [address] Sofia Vásquez CNA Subclinical hypothyroidism 07/10/2024 Orders Only [facility] Adult Endocr[facility]ology, A Department of [facility] [address] [address] Annie Clancy CMA Vitamin D deficiency; Subclinical hypothyroidism 06/23/2024 9:30 AM EDT Office Visit [facility] Adult Endocr[facility]ology, A Department of [facility] [address] [address] Trung Richardson MD Subclinical hypothyroidism (Primary Dx); Vitamin D deficiency; Age-related osteoporosis without current pathological fracture 06/23/2024 Travel from Last 3 Months Social History Tobacco Use Types Packs/Day Years Used Date Smoking Tobacco: Former Cigarettes Smokeless Tobacco: Never Tobacco Cessation:Counseling Given: Not Answered Comments:41 years ago Alcohol Use Standard Drinks/Week [...] Sign Reading Time Taken Comments Blood Pressure 124/70 06/23/2024 9:37 AM EDT Pulse 74 06/18/2023 10:08 AM EDT Temperature - - Respiratory Rate 16 06/13/2022 10:0 8 AM EDT Oxygen Saturation - - Inhaled Oxygen Concentration - - Weight 113.1 kg (249 lb 4.8 oz) 06/23/2024 9:37 AM EDT Height 165.1 cm (5' 5 ) 06/13/2022 10:0 8 AM EDT Body Mass Index 41.49 06/13/2022 10:08 AM EDT Plan of Treatment Upcoming Encounters Date Type Department Care Team (Late st Contact Info) Description 06/22/2025 9:30 AM EDT Office Visit [facility], A Department of [facility] [address] [place] [phone] Trung Richardson MD [address] [place] [address] Health Maintenance Due Date Last Done Comments Depression Screening 1966 DTaP,Tdap and Td Vaccines (1 - Tdap) 1973 Zoster (Shingles) Vaccine (1 of 2) 2004 Fall Risk Screening 09/22/2019 COVID-19 Vaccine (4 - 2023-2 5 season) 2023 02/14/2021, 06/30/2020, 06/07/2020 Influenza Vaccine 11/09/2024 01/07/2012 Adult BMI Screening 06/23/2025 06/23/2024 Tobacco Screening 06/23/2025 06/23/2024 Medical Devices Not on file Procedures Procedure Name Priority Date/Time Associated Diagnosis Comments THYROID PROFILE INCLUDES TSH FT4 Routine 06/09/2024 9:45 AM EDT Subclinical hypothyroidism VITAMIN D 25 HYDROXY Routine 06/09/2024 9:45 AM EDT Vitamin D deficiency COMPREHENSIVE METABOLIC PANEL Routine 06/09/2024 Subclinical hypothyroidism from Last 3 Months Results * Thyroid profile includes TSH FT4 (06/09/2024 9:45 AM EDT) T4, free 0.95 0.76 - 1.46 Blood 06/09/2024 9:45 AM EDT Trung Rivas MD LAB BLOOD ORDERA BLES Final Result * Vitamin D 25 hydroxy (06/09/2024 9:45 AM EDT) External Vitamin D 25-Hydroxy 64.5 30 - 100 Blood 06/09/2024 9:45 AM EDT Trung Rivas MD LAB BLOOD ORDERA BLES Final Result * Comprehensive metabolic panel (06/09/2024) Blood 06/09/2024 Trung Rivas MD LAB BLOOD ORDERA BLES Final Result MANUALLY TRANSCRIBED RESULTS from Last 3 Months Insurance [employer] MEDICARE Care Teams Tire Maker Relationship Specialty Start Date End Date Noel Farnsworth MD 112 [facility], [facility] [address] [place] [address] PCP - General Internal Medicine 06/13/22
--- OUTSIDE RECORDS SUMMARY | 2024-08-08 02:55 | XMS_ITS | Encounter Summary ---
Author Organization [facility] Address [address] [place] [address] Phone Care Team Providers Care Bezel Cutter Name Role Phone Noel Farnsworth MD Primary Care Provider [phone] Encounter Details Date Type Department Care Team (Late st Contact Info) Description 02/16/2021 Orders Only [facility] [address] [place] [address] Conversion, Onbase Social History Tobacco Use Types [...] Description 08/27/2024 9:00 AM EDT Office Visit [facility] 703 [facility] [address] [place] [address] Mily Prabhakar MD 703 [facility], [address] [place] [address] Scheduled Orders Name Type Priority Associated Diagnoses Orde r Schedule OUTSIDE LAB SCAN Lab Ordered: 02/16/2021 documented as of this encounter Visit Diagnoses Not on filedocumented in this encounter Care Teams Bezel Cutter Relationship Specialty Start Date End Date Noel Farnsworth MD [address] [place] [address] PCP - General 10/19/22 documented as of this encounter
--- OUTSIDE RECORDS SUMMARY | 2024-08-08 02:55 | XMS_ITS | Encounter Summary ---
Author Organization [facility] Address [address] [place] [address] Phone Care Team Providers Care Plate Cleaner Name Role Phone Noel Farnsworth MD Primary Care Provider [phone] Encounter Details Date Type Department Care Team (Late st Contact Info) Description 12/03/2023 Scanned Document [facility] [address] [place] [address] Scanning, Generic Provider Social History Tobacco Use [...] Exposure Response Date Recorded In the last 10 days, have yo u been in contact with someone who was confirmed or suspected to have Coronavirus/COVID-19? No / Unsure 11/28/2023 9:30 AM EDT documented as of this encounter Plan of Treatment Upcoming Encounters Date Type Department Care Team (Late st Contact Info) Description 08/27/2024 9:00 AM EDT Office Visit [facility] 703 [facility] [address] [place] [address] Mily Prabhakar MD [address] [facility] [address] [place] [address] documented as of this encounter Procedures Procedure Name Priority Date/Time Associated Diagnosis Comments OUTSIDE LAB SCAN 12/03/2023 documented in this encounter Results * OUTSIDE LAB SCAN (12/03/2023) Narrative 12/03/2023 Ordered by an unspecified provider. us Generic Provider Scanning OUTSIDE SCAN Final Result documented in this encounter Visit Diagnoses Not on filedocumented in this encounter Additional Health Concerns Assessment Noted Time A fall risk assessment has been complete d for the patient 11/28/2023 9:37 AM EDT documented as of this encounter Care Teams Plate Cleaner Relationship Specialty Start Date End Date Noel Farnsworth MD 112 [facility] [address] [place] [address] PCP - General 10/19/22 documented as of this encounter
--- OUTSIDE RECORDS SUMMARY | 2024-08-08 02:55 | XMS_ITS | Encounter Summary ---
Author Organization [facility] Address [address] [place] [address] Phone Care Team Providers Care Clinical Rehab Specialist Name Role Phone Noel Farnsworth MD Primary Care Provider [phone] Encounter Details Date Type Department Care Team (Late st Contact Info) Description 06/21/2022 Orders Only [facility] LEGACY [address] [place] [address] Conversion, Onbase Social History Tobacco Use Types [...] Office Visit [facility] 703 [facility] [address] [place] [address] Mily Prabhakar MD 703 [facility] 2, [address] [place] [address] Scheduled Orders Name Type Priority Associated Diagnoses Orde r Schedule OUTSIDE LAB SCAN Lab Ordered: 06/21/2022 documented as of this encounter Visit Diagnoses Not on filedocumented in this encounter Care Teams Clinical Rehab Specialist Relationship Specialty Start Date End Date Neol aFrnsworth MD [address] [place] [address] PCP - General 10/19/22 documented as of this encounter
--- OUTSIDE RECORDS SUMMARY | 2024-08-08 02:55 | XMS_ITS | Encounter Summary ---
Author Organization [facility] Address [address] [place] [address] Phone Care Team Providers Care Staffing Operations Manager Name Role Phone Noel Farnsworth MD Primary Care Provider [phone] Encounter Details Date Type Department Care Team (Late st Contact Info) Description 04/24/2022 Orders Only [facility] LEGACY [address] [place] [address] Conversion, Onbase Social History Tobacco Use Types [...] Description 08/27/2024 9:00 AM EDT Office Visit [facility] [address] [facility] [address] [place] [phone] Mily Prabhakar MD [address] [facility] [address] [place], [place] [address] Scheduled Orders Name Type Priority Associated Diagnoses Orde r Schedule OUTSIDE LAB SCAN Lab Ordered: 04/24/2022 OUTSIDE LAB SCAN Lab Ordered: 04/24/2022 documented as of this encounter Visit Diagnoses Not on filedocumented in this encounter Care Teams Staffing Operations Manager Relationship Specialty Start Date End Date Noel Farnsworth MD [address] [place] [address] PCP - General 10/19/22 documented as of this encounter
--- OUTSIDE RECORDS SUMMARY | 2024-08-08 02:55 | XMS_ITS | Encounter Summary ---
Author Organization [facility] Address [address] [place] [address] Phone Care Team Providers Care Medical Records Technician Name Role Phone Noel Farnsworth MD Primary Care Provider Encounter Details Date Type Department Care Team (Late st Contact Info) Description 11/14/2021 Orders Only [facility] LE[facility]Y [address] [place] [address] Conversion, Onbase Social History Tobacco Use Types [...] Description 08/27/2024 9:00 AM EDT Office Visit [facility] 703 [facility] [address] [place] [address] Mily Prabhakar MD 703 [facility] 2, [address] [place] [address] Scheduled Orders Name Type Priority Associated Diagnoses Orde r Schedule OUTSIDE LAB SCAN Lab Ordered: 11/14/2021 documented as of this encounter Visit Diagnoses Not on filedocumented in this encounter Care Teams Medical Records Technician Relationship Specialty Start Date End Date Noel Farnsworth MD [address] [place] [address] PCP - General 10/19/22 documented as of this encounter
--- OUTSIDE RECORDS SUMMARY | 2024-08-08 02:56 | XMS_ITS | Encounter Summary ---
Author Organization [facility] Address [address] [facility] [place] [address] Care Team Providers Care Warp Doffer Name Role Phone Noel Farnsworth MD Primary Care Provider [phone] Encounter Details Date Type Department Care Team (Late st Contact Info) Description 11/04/2023 Orders Only [facility] [address] [place] [address] Unallocated, Noms Provider, [address] [place] [address] Social History Tobacco Use Types Packs/Day Years Used Date Smoking Tobacco: Never Smokeless Tobacco: Never Alcohol Use Standard Drinks/Week Comments Never 0 (1 standard drink = 0.6 oz pur e alcohol) caffeine: none PHQ-2 Answer Date Recorded Patient Health Questionnaire-2 Score 0 10/29/2023 Comments Unknown Sex and Gender Information Value [...] NB ORTHO [address] [place] [address] Lazaro Borrero DO [address] [place], [place] [id number] 04/01/2025 10:00 AM EST Office Visit [facility] [address] [place] [address] Sherlyn Rucker, DO [address] [place] [address] documented as of this encounter Procedures Procedure Name Priority Date/Time Associated Diagnosis Comments SCANNED LABS Routine 11/04/2023 1:18 PM EDT SCANNED LABS Routine 11/04/2023 1:18 PM EDT documented in this encounter Results * SCANNED LABS (11/04/2023 1:18 PM EDT) us Noms Provider Unallocated MD LAB CHG PERFORMABLE S Final Result * SCANNED LABS (11/04/2023 1:18 PM EDT) us Noms Provider Unallocated MD LAB CHG PERFORMABLE S Final Result documented in this encounter Visit Diagnoses Not on filedocumented in this encounter Additional Health Concerns Assessment Noted Time PHQ-9 Depression Total Score: 0 10/29/19 24 9:00 AM EDT documented as of this encounter Care Teams Warp Doffer Relationship Specialty Start Date End Date Noel Farnsworth MD [address] [facility] [address] [place] [address] PCP - General Internal Medicine 08/14/22 documented as of this encounter
--- OUTSIDE RECORDS SUMMARY | 2024-08-08 02:56 | XMS_ITS | Encounter Summary ---
Author Organization [facility] Address [address] [place] [address] Phone Care Team Providers Care Circulation Worker Name Role Phone Noel Farnsworth MD Primary Care Provider [phone] Encounter Details Date Type Department Care Team (Late st Contact Info) Description 08/30/2021 Orders Only [facility] LEGAC[facility] [address] [place] [address] Conversion, Onbase Social History Tobacco Use Types [...] EDT Office Visit [facility] 703 [facility] [address] [place] [address] Mily Prabhakar MD 703 [facility] 2, [address] [place] [address] Scheduled Orders Name Type Priority Associated Diagnoses Orde r Schedule OUTSIDE LAB SCAN Lab Ordered: 08/30/2021 documented as of this encounter Visit Diagnoses Not on filedocumented in this encounter Care Teams Circulation Worker Relationship Specialty Start Date End Date Noel Farnsworth MD [address] [place] [address] PCP - General 10/19/22 documented as of this encounter
--- OUTSIDE RECORDS SUMMARY | 2024-08-08 02:56 | XMS_ITS | Encounter Summary ---
Author Organization [facility] Address [address] [place] [address] Phone Care Team Providers Care Manager Collection Name Role Phone Noel Farnsworth MD Primary Care Provider [phone] Encounter Details Date Type Department Care Team (Late st Contact Info) Description 07/11/2021 Orders Only [facility] [address] [place] [address] Conversion, Onbase Social History Tobacco Use Types [...] AM EDT Office Visit [facility] 703 [facility] 250 [place] [address] Mily Prabhakar MD 703 [facility] 2, [address] [place] [address] Scheduled Orders Name Type Priority Associated Diagnoses Orde r Schedule OUTSIDE LAB SCAN Lab Ordered: 07/11/2021 documented as of this encounter Visit Diagnoses Not on filedocumented in this encounter Care Teams Manager Collection Relationship Specialty Start Date End Date Noel Farnsworth MD [address] [place] [address] PCP - General 10/19/22 documented as of this encounter
--- OUTSIDE RECORDS SUMMARY | 2024-08-08 02:56 | XMS_ITS | Encounter Summary ---
Author Organization [facility] Address [address] [facility] [place] [address] Care Team Providers Care Leader Writer Name Role Phone Noel Farnsworth MD Primary Care Provider [phone] Encounter Details Date Type Department Care Team (Late Contact Info) Description 11/28/2023 Abstract [facility] 112 [facility] 110 [place] [address] Noel Farnsworth MD 112 [facility] 110 [place], [place] [id number] Social History Tobacco Use Types Packs/Day Years [...] NB ORTHO [address] [place] [address] Lazaro Borrero DO [address] [place] [address] 04/01/2025 10:00 AM EST Office Visit [facility] [address] [facility] [address] [place] [address] Sherlyn Rucker, DO [address] [facility] 210 [place] [address] documented as of this encounter Visit Diagnoses Not on filedocumented in this encounter Additional Health Concerns Assessment Noted Time PHQ-9 Depression Total Score: 0 10/29/19 24 9:00 AM EDT documented as of this encounter Care Teams Leader Writer Relationship Specialty Start Date End Date Noel Farnsworth MD 112 [facility] 110 [place] [address] PCP - General Internal Medicine 08/14/22 documented as of this encounter
--- OUTSIDE RECORDS SUMMARY | 2024-08-08 02:56 | XMS_ITS | Encounter Summary ---
Author Organization [facility] Address [address] [place] [address] Phone Care Team Providers Care Optical Instruments Supervisor Name Role Phone Noel Farnsworth MD Primary Care Provider [phone] Encounter Details Date Type Department Care Team (Late st Contact Info) Description 05/31/2021 Orders Only [facility] [address] [place] [address] Conversion, Onbase Social History Tobacco Use Types [...] Description 08/27/2024 9:00 AM EDT Office Visit [facility] 703 [facility] 250 [place] [address] Mily Prabhakar MD 703 [facility] 2, [address] [place] [address] Scheduled Orders Name Type Priority Associated Diagnoses Orde r Schedule OUTSIDE LAB SCAN Lab Ordered: 05/31/2021 documented as of this encounter Visit Diagnoses Not on filedocumented in this encounter Care Teams Optical Instruments Supervisor Relationship Specialty Start Date End Date Noel Farnsworth MD [address] [place] [address] PCP - General 10/19/22 documented as of this encounter
--- OUTSIDE RECORDS SUMMARY | 2024-08-08 02:56 | XMS_ITS | Encounter Summary ---
Author Organization [facility] Address [address] [place] [address] Care Team Providers Care Toy Packer Name Role Phone Noel Farnsworth MD Primary Care Provider Encounter Details Date Type Department Care Team (Late st Contact Info) Description 10/10/2022 Orders Only [facility] [address] [place] [address] A, Unknown Practice [address] [place], [place] [phone] Social History Tobacco Use Types Packs/Day Years Used Date Smoking Tobacco: Never Alcohol Use Standard Drinks/Week Comments Never 0 (1 standard drink = 0.6 oz pur e alcohol) caffeine: none Comments Unknown Sex and Gender Information Value [...] NB ORTHO [address] [place] [address] Lazaro Borrero, DO [address] [place] [address] 04/01/2025 10:00 AM EST Office Visit [facility] [address] [place] [address] Sherlyn Rucker, DO [address] [place] [address] documented as of this encounter Procedures Procedure Name Priority Date/Time Associated Diagnosis Comments MR SHOULDER RIGHT WO IV CONTRAST Routine 10/09/2022 8:53 AM EDT documented in this encounter Results * MR shoulder right wo IV contrast (10/09/2022 8:53 AM EDT) Anatomical Region Laterality Modality Upper Extremities, Shoulder Right Magn etic Resonance us Unknown Practice A IMG MRI PROCEDURES Final Resu lt documented in this encounter Visit Diagnoses Not on filedocumented in this encounter Care Teams Toy Packer Relationship Specialty Start Date End Date Noel Farnsworth MD [address] [address] PCP - General Internal Medicine 08/14/22 documented as of this encounter
--- OUTSIDE RECORDS SUMMARY | 2024-08-08 02:56 | XMS_ITS | Encounter Summary ---
Author Organization [facility] Address [address] [place] [address] Care Team Providers Care Coin Dealer Name Role Phone Noel Farnsworth MD Primary Care Provider Encounter Details Date Type Department Care Team (Late Contact Info) Description 11/06/2023 Clinisync Result Encounter NOMS External Department Unsolicited Rodrick Strickland, PA 112 [facility] 110 [place] [address] Social History Tobacco Use Types Packs/Day Years [...] NB ORTHO [address] [place] [address] Lazaro Borrero, DO [address] [place] [address] 04/01/2025 10:00 AM EST Office Visit [facility] [address] [place] [address] Sherlyn Rucker, DO [address] [place] [address] documented as of this encounter Procedures Procedure Name Priority Date/Time Associated Diagnosis Comments XR FOOT RT MIN 3V 11/06/2023 11: 22 AM EDT documented in this encounter Results * XR FOOT RT MIN 3V (11/06/2023 11:22 AM EDT) Anatomical Region Laterality Modality Other 11/06/2023 11:2 2 AM EDT Narrative 11/06/2023 11:25 [place] [address] XRay Report Signed Patient: RODRICK JESSICA MR#: [id number] : 1955 Acct:[id number] Age/Sex: 68 / F ADM Date: 11/06/23 Loc: RAD Attending Dr: RODRICK STRICKLAND Ordering Physician: RODRICK STRICKLAND Date of Service: 11/06/23 Procedure(s): XR foot RT min 3V Accession Number(s): [id number] cc: NOEL FARNSWORTH ; RODRICK STRICKLAND [address] [address] Patient Name: RODRICK JESSICA MRN: [id number] date: 1955 Sex: F Assigned Patient Location: [facility] Current Patient Location: [facility] Accession/Order Number: [id number] Exam Date: 11/06/2023 10:14 Report Date: 11/06/2023 11:22 At the request of: RODRICK STRICKLAND Procedure: XR foot RT min 3V PROCEDURE: XR foot RT min 3V HISTORY: Right Foot Pain M79.671 ; pain and bruising forefoot and toes COMPARISON: None. FINDINGS: BONES:Bunion formation and mild joint space narrowing in first metatarsophalangeal joint. Moderate sized calcaneal plantar spur. No fracture, dislocation, bone lesion. No significant loss of plantar arch. SOFT TISSUES:Prominent soft tissue swelling over distal dorsum of foot. No radiopaque foreign body. EFFUSION:None visible. OTHER: Negative. XR/XR foot RT min 3V IMPRESSION: 1. Bunion formation and mild degenerative joint disease. 2. Dorsal soft tissue swelling of uncertain etiology. Electronically authenticated by: VARINDER HAMMOND Date: 11/06/2023 11:22 Dictated By: Varinder Hammond M.D. Signed By: 11/06/23 1125 DD/ 1122 TD/TT: Air Reduction Equipment Operator: Procedure Note Radiology, Radiologist, MD - 11/06/2023 [place] [address] XRay Report Signed Patient: RODRICK JESSICA AMR#: [id number] : 5Acct:[id number] Age/Sex: 68 / FADM Date: 11/06/23 Loc: RAD Attending Dr: RODRICK STRICKLAND Ordering Physician: RODRICK STRICKLAND Date of Service: 11/06/23 Procedure(s): XR foot RT min 3V Accession Number(s): [id number] cc: NOEL FARNSWORTH ; RODRICK STRICKLAND [place] [id number] Patient Name: RODRICK JESSICA MRN: [id number] date: 1955 Sex: F Assigned Patient Location: [facility] Current Patient Location: RAD Accession/Order Number: [id number] Exam Date: 11/06/2023 10:14 Report Date: 11/06/2023 11:22 At the request of: RODRICK STRICKLAND Procedure: XR foot RT min 3V PROCEDURE: XR foot RT min 3V HISTORY: Right Foot Pain M79.671 ; pain and bruising forefoot and toes COMPARISON: None. FINDINGS: BONES:Bunion formation and mild joint space narrowing in first metatarsophalangeal joint. Moderate sized calcaneal plantar spur. Nofracture, dislocation, bone lesion. No significant loss of plantar arch. SOFT TISSUES:Prominent soft tissue swelling over distal dorsum of foot. No radiopaque foreign body. EFFUSION:None visible. OTHER: Negative. XR/XR foot RT min 3V IMPRESSION: 1. Bunion formation and mild degenerative joint disease. 2. Dorsal soft tissue swelling of uncertain etiology. Electronically authenticated by: VARINDER HAMMOND Date: 11/06/2023 11:22 Dictated By: Varinder Hammond M.D. Signed By:11/06/23 1125 DD/ 1122 TD/TT: Air Reduction Equipment Operator: Rodrick [facility] Final Result documented in this encounter Visit Diagnoses Not on filedocumented in this encounter Additional Health Concerns Assessment Noted Time PHQ-9 Depression Total Score: 0 10/29/19 24 9:00 AM EDT documented as of this encounter Care Teams Coin Dealer Relationship Specialty Start Date End Date Noel Farnsworth MD [address] [address] PCP - General Internal Medicine 08/14/22 documented as of this encounter
--- OUTSIDE RECORDS SUMMARY | 2024-08-08 02:56 | XMS_ITS | Encounter Summary ---
Author Organization [facility] Address [address] [place] [facility] [place] [address] Care Team Providers Care Hood Maker Name Role Phone Noel Farnsworth MD Primary Care Provider [phone] Encounter Details Date Type Department Care Team (Late Contact Info) Description 01/07/2024 Abstract [facility] CI FM 112 [facility] 110 [place] [address] Noel Farnsworth MD 112 [facility] 110 [place], [place] [phone] Social History Tobacco Use Types Packs/Day Years [...] NB ORTHO [address] [place] [address] Lazaro Borrero DO [address] [place] [address] 04/01/2025 10:00 AM EST Office Visit [facility] [address] [facility] [address] [place] [address] Sherlyn Rucker, DO [address] [facility] 210 [place] [address] documented as of this encounter Visit Diagnoses Not on filedocumented in this encounter Additional Health Concerns Assessment Noted Time PHQ-9 Depression Total Score: 0 10/29/19 24 9:00 AM EDT documented as of this encounter Care Teams Hood Maker Relationship Specialty Start Date End Date Noel Farnsworth MD 112 [facility] 110 [place] [address] PCP - General Internal Medicine 08/14/22 documented as of this encounter
--- OUTSIDE RECORDS SUMMARY | 2024-08-08 02:56 | XMS_ITS | Encounter Summary ---
Author Organization [facility] Address [address] [facility] [place] [address] Care Team Providers Care Yarn Polishing Machine Operator Name Role Phone Noel Farnsworth MD Primary Care Provider [phone] Encounter Details Date Type Department Care Team (Late st Contact Info) Description 10/29/2023 Abstract [facility] FM 112 [facility] 110 [place] [address] Noel Farnsworth MD [address] [facility] 110 [place], [place] [phone] Social History Tobacco Use Types Packs/Day Years [...] pleasure in doing things Not at all 10/29/2023 9:00 AM EDT Almaz Cummins M A Feeling down, depressed, or hopeless Not at all 10/29/2023 9:00 AM EDT Almaz Cummins M A Patient Health Questionnaire -2 Score 0 10/29/2023 9:00 AM EDT Almaz Cummins M A * Question Answer Date of Assessment Author Trouble falling or staying asleep, or sleeping too much Not at all 10/29/2023 9:00 AM EDT Almaz Cummins MA Feeling tired or having jane le energy Not at all 10/29/2023 9:00 AM EDT Almaz Cummins M A Poor appetite or overeating Not at all 10/29/2023 9: 00 AM EDT Almaz Cummins MA Feeling bad about yourself - or that you are a failure or have let yourself or your family down Not at all 10/29/2023 9:00 AM EDT Almaz Jordan MA Trouble concentrating on thi ngs, such as reading the newspaper or watching television Not at all 10/29/2023 9:00 AM EDT Almaz Cummins M A Moving or speaking so slowly that other people could have noticed? Or the opposite - being so fidgety or restless that you have been moving around a lot more than usual. Not at all 10/29/2023 9:00 AM EDT Almaz Cummins M A Thoughts that you would be better off or hurting yourself in some way Not at all 10/29/2023 9:00 AM EDT Almaz Cummins MA Patient Health Questionnaire -9 Score 0 10/29/2023 9:00 AM EDT Almaz Cummins M A documented as of this encounter Plan of Treatment Upcoming Encounters Date Type Department Care Team (Late st Contact Info) Description 12/31/2024 9:00 AM EDT Office Visit [facility]THO [address] [address] Lazaro Borrero, DO [address] [place] [address] 04/01/2025 10:00 AM EST Office Visit [facility] [address] [place] [address] Sherlyn Rucker, DO [address] [place] [address] documented as of this encounter Visit Diagnoses Not on filedocumented in this encounter Additional Health Concerns Assessment Noted Time PHQ-9 Depression Total Score: 0 10/29/19 24 9:00 AM EDT documented as of this encounter Care Teams Yarn Polishing Machine Operator Relationship Specialty Start Date End Date Noel Farnsworth MD [address] [address] PCP - General Internal Medicine 08/14/22 documented as of this encounter
--- OUTSIDE RECORDS SUMMARY | 2024-08-08 02:56 | XMS_ITS | Encounter Summary ---
Author Organization [facility] Address [address] [place] [address] Phone Care Team Providers Care Grocery Packer Name Role Phone Noel Farnsworth MD Primary Care Provider [phone] Encounter Details Date Type Department Care Team (Late st Contact Info) Description 07/05/2021 Orders Only [facility] [address] [place] [address] Conversion, Onbase Social History Tobacco Use Types [...] 08/27/2024 9:00 AM EDT Office Visit [facility] 703 [facility] 250 [place] [address] Mily Prabhakar MD 703 [facility] 2, [address] [place] [address] Scheduled Orders Name Type Priority Associated Diagnoses Orde r Schedule OUTSIDE LAB SCAN Lab Ordered: 07/05/2021 documented as of this encounter Visit Diagnoses Not on filedocumented in this encounter Care Teams Grocery Packer Relationship Specialty Start Date End Date Noel Farnsworth MD [address] [place] [address] PCP - General 10/19/22 documented as of this encounter
--- OUTSIDE RECORDS SUMMARY | 2024-08-08 02:56 | XMS_ITS | Encounter Summary ---
Author Organization [facility] Address [address] [place] [address] Care Team Providers Care Charter And Tour Bus Driver Name Role Phone Noel Farnsworth MD Primary Care Provider [phone] Encounter Details Date Type Department Care Team (Late st Contact Info) Description 09/25/2022 Abstract [facility] CI PT [address] [place] [address] Fareed Chan, PT 164 [place] [address] Social History Tobacco Use Types Packs/Day Years [...] NB ORTHO [address] [address] Lazaro Borrero, DO [address] [place] [address] 04/01/2025 10:00 AM EST Office Visit [facility] [address] [place] [address] Sherlyn Rucker, DO [address] [place] [address] documented as of this encounter Visit Diagnoses Not on filedocumented in this encounter Care Teams Charter And Tour Bus Driver Relationship Specialty Start Date End Date Noel Farnsworth MD 112 [facility] 110 [place] [address] PCP - General Internal Medicine 08/14/22 documented as of this encounter
--- OUTSIDE RECORDS SUMMARY | 2024-08-08 02:56 | XMS_ITS | Encounter Summary ---
Author Organization [facility] Address [address] [facility] [place] [address] Care Team Providers Care Out And Out Cigar Maker Hand Name Role Phone Noel Farnsworth MD Primary Care Provider Encounter Details Date Type Department Care Team (Late Contact Info) Description 11/05/2023 Orders Only [facility] [address] [place] [address] Unallocated, Noms Provider, [address] [place] [address] Social History Tobacco Use Types Packs/Day Years [...] NB ORTHO [address] [place] [address] Lazaro Borrero DO [address] [place], [place] [address] 04/01/2025 10:00 AM EST Office Visit [facility] [address] [place] [address] Sherlyn Rucker, DO [address] [place] [address] documented as of this encounter Procedures Procedure Name Priority Date/Time Associated Diagnosis Comments SCANNED LABS Routine 11/05/2023 8:00 AM EDT documented in this encounter Results * SCANNED LABS (11/05/2023 8:00 AM EDT) us Noms Provider Unallocated LAB CHG PERFORMABLE S Final Result documented in this encounter Visit Diagnoses Not on filedocumented in this encounter Additional Health Concerns Assessment Noted Time PHQ-9 Depression Total Score: 0 10/29/19 9:00 AM EDT documented as of this encounter Care Teams Out And Out Cigar Maker Hand Relationship Specialty Start Date End Date Noel Farnsworth MD [address] [place] [address] PCP - General Internal Medicine 08/14/22 documented as of this encounter
--- OUTSIDE RECORDS SUMMARY | 2024-08-08 02:56 | XMS_ITS | Encounter Summary ---
Author Organization [facility] Address [address] [place] [address] Phone Care Team Providers Care Aircraft Machinist Name Role Phone Noel Farnsworth MD Primary Care Provider [phone] Encounter Details Date Type Department Care Team (Late st Contact Info) Description 06/07/2021 Orders Only [facility] [address] [place] [address] Conversion, Onbase Social History Tobacco Use Types [...] Description 08/27/2024 9:00 AM EDT Office Visit [facility] 703 [facility] 250 [place] [address] Mily Prabhakar MD 703 [facility] 2, [address] [place] [address] Scheduled Orders Name Type Priority Associated Diagnoses Orde r Schedule OUTSIDE LAB SCAN Lab Ordered: 06/07/2021 documented as of this encounter Visit Diagnoses Not on filedocumented in this encounter Care Teams Aircraft Machinist Relationship Specialty Start Date End Date Noel Farnsworth MD [address] [place] [address] PCP - General 10/19/22 documented as of this encounter
--- OUTSIDE RECORDS SUMMARY | 2024-08-08 02:56 | XMS_ITS | Encounter Summary ---
Author Organization [facility] Address [address] [place] [address] Phone Care Team Providers Care Director Community Organization Name Role Phone Noel Farnsworth MD Primary Care Provider [phone] Encounter Details Date Type Department Care Team (Late st Contact Info) Description 06/21/2021 Orders Only [facility] LE[facility] [address] [place] [address] Conversion, Onbase Social History Tobacco Use Types [...] Description 08/27/2024 9:00 AM EDT Office Visit [facility] 703 [facility] 250 [place] [address] Mily Prabhakar MD 703 [facility] 2, [address] [place] [address] Scheduled Orders Name Type Priority Associated Diagnoses Orde r Schedule OUTSIDE LAB SCAN Lab Ordered: 06/21/2021 documented as of this encounter Visit Diagnoses Not on filedocumented in this encounter Care Teams Director Community Organization Relationship Specialty Start Date End Date Noel Farnsworth MD [address] [place] [address] PCP - General 10/19/22 documented as of this encounter
--- OUTSIDE RECORDS SUMMARY | 2024-08-08 02:56 | XMS_ITS | Encounter Summary ---
Author Organization [facility] Address [address] [place] [address] Phone Care Team Providers Care Mechanic Recovery Name Role Phone Noel Farnsworth MD Primary Care Provider [phone] Encounter Details Date Type Department Care Team (Late st Contact Info) Description 09/19/2021 Orders Only [facility] [address] [place] [address] Conversion, Onbase Social History Tobacco Use Types [...] Description 08/27/2024 9:00 AM EDT Office Visit [facility] 703 [facility] 250 [place] [address] Mily Prabhakar MD 703 [facility] 2, [address] [place] [address] Scheduled Orders Name Type Priority Associated Diagnoses Orde r Schedule OUTSIDE LAB SCAN Lab Ordered: 09/19/2021 documented as of this encounter Visit Diagnoses Not on filedocumented in this encounter Care Teams Mechanic Recovery Relationship Specialty Start Date End Date Noel Farnsworth MD [address] [place] [address] PCP - General 10/19/22 documented as of this encounter
--- OUTSIDE RECORDS SUMMARY | 2024-08-08 02:56 | XMS_ITS | Encounter Summary ---
Author Organization [facility] Address [address] [place] [address] Phone Care Team Providers Care Medical Device Name Role Phone Noel Farnsworth MD Primary Care Provider [phone] Encounter Details Date Type Department Care Team (Late st Contact Info) Description 10/04/2021 Orders Only [facility] [address] [place] [address] Conversion, Onbase Social History Tobacco Use Types [...] Description 08/27/2024 9:00 AM EDT Office Visit [facility] 703 [facility] 250 [place] [address] Mily Prabhakar MD 703 [facility] 2, [address] [place] [address] Scheduled Orders Name Type Priority Associated Diagnoses Orde r Schedule OUTSIDE LAB SCAN Lab Ordered: 10/04/2021 documented as of this encounter Visit Diagnoses Not on filedocumented in this encounter Care Teams Medical Device Relationship Specialty Start Date End Date Noel Farnsworth MD [address] [place] [address] PCP - General 10/19/22 documented as of this encounter
--- NOTE | 2024-08-08 03:23 | ED.GENADUL1 ---
HPI HPI - General Adult General Chief complaint: Abdominal Pain Stated complaint: BELCHING/ JUST FEELING OFF/ WOKE UP FEELING LIKE Time Seen by Provider: 08/08/24 02:52 Source: patient Mode of arrival: ambulance History of Present Illness HPI narrative: cc - belching Pt has GERD and takes pantoprazole daily. Tonight she ate chicken wings, citizen of [place] fries and a james cheesesteak sandwich . She woke about 3 hours ago with belching and it hasn't stopped . She feels some fullness across the upper abdomen but no pain, just gas . Some radiation into the back. She had gastric bypass surgery in 1998 and they took my gallbladder . No fever or chills. No nausea or vomiting She told me that over the last few weeks she has intermittently been waking in the middle of the night with a burning, acid-like taste in my mouth . Related Data Home Medications ?Medication ?Instructions ?Recorded ?Confirmed metoprolol tartrate 25 mg tablet mg 08/08/24 pantoprazole 40 mg tablet,delayed mg PO 08/08/24 release potassium chloride 20 mEq meq PO 08/08/24 tablet,extended release(part/cryst) spironolactone 50 mg tablet mg 08/08/24 sulfamethoxazole 800 tab 08/08/24 mg-trimethoprim 160 mg tablet torsemide 20 mg tablet mg 08/08/24 warfarin 2.5 mg tablet mg 08/08/24 Allergies Allergy/AdvReac Type Severity Reaction Status Date / Time No Known Drug Allergies Allergy Verified 08/08/24 02:56 PFSH PFSH Social History Little interest or pleasure in doing things: not at all Feeling down, depressed, or hopeless: not at all Exam Narrative Exam Narrative: Nurses notes and vital signs reviewed and patient is not hypoxic. afebrile General: Well-appearing and in no apparent distress. Skin: Warm, dry, no pallor noted. Eye: Pupils are equal, round and EOMI. No scleral icterus. Ears, Nose, Mouth, and Throat: Oral mucosa is moist Cardiovascular: Regular Rate and Rhythm without murmur, gallop or rub. Respiratory: No accessory muscle use or respiratory distress. Lungs are clear to auscultation, no wheezing, rales or rhonchi Back: No CVA tenderness Musculoskeletal: normal ROM GI: Abdomen is soft, non-distended. Normal bowel sounds. No masses appreciated. No tenderness to palpation. No rebound, guarding, or rigidity noted. Neurological: A&O x4. No cranial nerve dysfunction observed. No truncal ataxia. Moves all extremities. Sensation intact. Psychiatric: Cooperative and interactive. Normal mood and affect. Constitutional Vital Signs, click to edit/add: Last Vital Signs Temp 98.4 F 08/08/24 02:49 Pulse 75 08/08/24 02:49 Resp 16 08/08/24 02:49 BP 120/70 08/08/24 02:49 Pulse Ox 98 08/08/24 02:49 O2 Del Method Room Air 08/08/24 02:49 Course Vital Signs Vital signs: Vital Signs Temperature 98.4 F 08/08/24 02:49 Pulse Rate 75 08/08/24 02:49 Respiratory Rate 16 08/08/24 02:49 Blood Pressure 120/70 08/08/24 02:49 Pulse Oximetry 98 08/08/24 02:49 Oxygen Delivery Method Room Air 08/08/24 02:49 Temperature 98.4 F 08/08/24 02:49 Pulse Rate 75 08/08/24 02:49 Respiratory Rate 16 08/08/24 02:49 Blood Pressure 120/70 08/08/24 02:49 Pulse Oximetry 98 08/08/24 02:49 Oxygen Delivery Method Room Air 08/08/24 02:49 Medical Decision Making MDM Narrative Medical decision making narrative: Patient presents with belching following a dinner that included cheese steak, [place] fries and chicken wings. She has been experiencing symptoms suggestive of acid reflux/GERD for the last few weeks. Tonight she is having acute exacerbation. Pt was given GI cocktail and then discharged home with recommendation to maintain a clear liquid diet with soft bland foods, avoid fried and fatty foods as well as those that are spiced, until her symptoms kimo. We talked about making dietary changes appropriate for someone's had gastric bypass surgery and also has reflux disease -avoid fried and fatty foods, avoid spicy foods, focus on fresh fruits and vegetables along with lean meats and healthy proteins. She was instructed to continue to take her pantoprazole and follow-up with her PCP. Discharge Plan Discharge Chief Complaint: Abdominal Pain Clinical Impression: GERD (gastroesophageal reflux disease) Patient Disposition: Home, Self-Care Time of Disposition Decision: 03:28 Prescriptions / Home Meds: No Action torsemide 20 mg tablet warfarin 2.5 mg tablet sulfamethoxazole-trimethoprim 800-160 mg tablet potassium chloride 20 mEq tablet,ER particles/crystals PO pantoprazole 40 mg tablet,delayed release (DR/EC) PO spironolactone 50 mg tablet metoprolol tartrate 25 mg tablet Print Language: Swiss Instructions: GERD (Gastroesophageal Reflux Disease) (ED) Referrals: KRISTEN RODGERS [Primary Care Provider, Internal Medicine] - 1 week
[2024-08-08] MEDS: lidocaine HCL 15 ML, MAG HYDROX/ALUMINUM HYD/SIMETH 30 ML, HYOSCYAMINE SULFATE 0.25 MG PO (03:40)
== END 2024-08-08 03:48 | disposition home or self-care (01) ==
PROVIDERS: Emergency Provider Emergency Medicine; PCP Internal Medicine
DX: K21.9 Gastro-esophageal reflux disease without esophagitis (principal); R14.2 Eructation; Z98.84 Bariatric surgery status
CPT/HCPCS: 99283

== ENCOUNTER 2024-08-09 07:49 | Outpatient (RCR) | payer MEDICARE, SELFPAY | END 2024-09-03 14:45 | disposition home or self-care (01) | LOC: MM 07:49 | PROVIDERS: PCP Internal Medicine; Visit Provider Internal Medicine | DX: Z51.81 Encounter for therapeutic drug level monitoring (principal); Z79.01 Long term (current) use of anticoagulants; I48.20 Chronic atrial fibrillation, unspecified | CPT/HCPCS: 85610; G0463 ==

== ENCOUNTER 2024-09-08 02:26 | Outpatient (RCR) | payer MEDICARE, SELFPAY | END 2024-10-08 16:38 | disposition home or self-care (01) | LOC: MM 02:26 | PROVIDERS: PCP Internal Medicine; Visit Provider Internal Medicine | DX: Z51.81 Encounter for therapeutic drug level monitoring (principal); Z79.01 Long term (current) use of anticoagulants; I48.20 Chronic atrial fibrillation, unspecified | CPT/HCPCS: 85610; G0463 ==

== ENCOUNTER 2024-10-09 01:36 | Outpatient (RCR) | payer MEDICARE, SELFPAY | END 2024-11-05 12:56 | disposition home or self-care (01) | LOC: MM 01:36 | PROVIDERS: PCP Internal Medicine; Visit Provider Internal Medicine | DX: Z51.81 Encounter for therapeutic drug level monitoring (principal); Z79.01 Long term (current) use of anticoagulants; I48.20 Chronic atrial fibrillation, unspecified | CPT/HCPCS: 85610; G0463 ==

== ENCOUNTER 2024-11-09 00:29 | Outpatient (RCR) | payer MEDICARE, SELFPAY | END 2024-12-08 15:42 | disposition home or self-care (01) | LOC: MM 00:29 | PROVIDERS: PCP Internal Medicine; Visit Provider Internal Medicine | DX: Z51.81 Encounter for therapeutic drug level monitoring (principal); Z79.01 Long term (current) use of anticoagulants; I48.91 Unspecified atrial fibrillation | CPT/HCPCS: 85610; G0463 ==

== ENCOUNTER 2024-12-09 01:23 | Outpatient (RCR) | payer MEDICARE, SELFPAY | END 2025-01-08 23:59 | disposition home or self-care (01) | LOC: MM 01:23 | PROVIDERS: PCP Internal Medicine; Visit Provider Internal Medicine | DX: Z51.81 Encounter for therapeutic drug level monitoring (principal); Z79.01 Long term (current) use of anticoagulants; I48.20 Chronic atrial fibrillation, unspecified | CPT/HCPCS: 85610; G0463 ==

== ENCOUNTER 2025-01-09 | Outpatient (RCR) | payer MEDICARE, SELFPAY | END 2025-02-07 23:59 | disposition home or self-care (01) | LOC: MM | PROVIDERS: PCP Internal Medicine; Visit Provider Internal Medicine | DX: Z51.81 Encounter for therapeutic drug level monitoring (principal); Z79.01 Long term (current) use of anticoagulants; I48.20 Chronic atrial fibrillation, unspecified | CPT/HCPCS: 85610; G0463 ==

== ENCOUNTER 2025-01-19 08:20 | Outpatient (OUT) | payer MEDICARE, SELFPAY ==
--- OUTSIDE RECORDS SUMMARY | 2025-01-19 08:26 | XMS_ITS | Clinical Summary ---
Author Organization [facility] Address [address] [place] [address] Care Team Providers Care Health Outcomes Liaison Name Role Phone Unavailable Primary Care Provider Unavailabl e Social History Tobacco UseTypesPacks/DayYears UsedDateSmoking Tobacco: Never Assessed CommentsUnknownSex and Gender InformationValueDate RecordedSex Assigned at Not on fileLegal TryJntuqt38/29/2022 10:25 PM EDTGender IdentityNot on file Sexual OrientationNot on file Last Filed Vital Signs Vital SignReadingTime TakenCommentsBlood Jbjeylfq935/7710 3:27 PM EDT Ntqth735108/11/2019 9:04 AM KAVAdmtouncoln55.6 ??C (97.9 ??F)08/11/2019 9:01 AM EDTRespiratory Rate--Oxygen Hgiwxjwkma58%12/23/2019 3:28 PM EDTInhaled Oxygen Concentration--Hwysfg348 kg (252 lb)12/23/2019 3:23 PM GFKKiweuc439.1 cm (5' 5 ) 12/23/2019 3:23 PM EDTBody Mass Index41.9312/23/2019 3:23 PM EDT Plan of Treatment Not on file
--- OUTSIDE RECORDS SUMMARY | 2025-01-19 08:27 | XMS_ITS | Encounter Summary ---
Author Organization [facility] Address [address] [place] [address] Phone Care Team Providers Care Mental Health Therapist Name Role Phone Noel Farnsworth MD Primary Care Provider [phone] Encounter Details DateTypeDepartmentCare Team (Latest Contact Info)Hycgvxajryt21/14/1956Orders Only [facility] [address] [place] [address] Scanning, Generic Provider Social History Tobacco UseTypesPacks/DayYears UsedDateSmoking Tobacco: Never Assessed CommentsUnknownSex and Gender InformationValueDate RecordedSex Assigned at Not on fileLegal TwjAylqjf60/26/2022 8:34 PM ESTGender IdentityNot on fileSexual OrientationNot on filedocumented as of this encounter Plan of Treatment DateTypeDepartmentCare Team (Latest Contact Info)Xnowtarjmyk87/23/2026 9:00 AM EDTOffice Visit [facility] [address] [facility] [address] [place] [address] Mily Prabhakar MD [address] [facility] [address] [place] [address] NameTypePriorityAssociated DiagnosesOrder ScheduleOUTSIDE LAB SCANLabOrdered: 1954documented as of this encounter Visit Diagnoses Not on filedocumented in this encounter Care Teams Team MemberRelationshipSpecialtyStart DateEnd Date Noel Farnsworth MD [address] [facility] [address] [place] [address] [facility]10/19/22documented as of this encounter
--- OUTSIDE RECORDS SUMMARY | 2025-01-19 08:27 | XMS_ITS | Clinical Summary ---
Author Organization [facility] Address [address] [place], [place] [address] Care Team Providers Care Pan Shover Name Role Phone Javad MARSH MD, Noel Snow Primary Care Provider [phone] Allergies Active AllergyReactionsCriticalityNoted DateCommentsparafum forte [Other]Hives 05/03/2008 Medications MedicationSigDispense QuantityRefillsLast FilledStart DateEnd DateStatus HYDROCHLOROTHIAZIDE 12.5 MG TAB Take one(1) tablet daily.ctive calcium citrate(CALCITRATE 950 MG TAB) Take one(1) tablet three times daily.ctive diphenhydramine hcl(ALLERGY MEDICINE 25 MG TAB) A and D one tablet once rcjji227ctive ascorbic acid(VITAMIN C 1,000 MG TAB) Take one(1) tablet daily.ctive omega-3 fatty acids/vitamin e(FISH OIL 1,000 MG CAP) once daily 1,300 mgctive Cholecalciferol, Vitamin D3, 10,000 unit ORAL Cap Takes 125,000 IU djtzg171ctive acetaminophen (TYLENOL EXTRA STRENGTH) 500 mg tablet Take 2 tablets by mouth as directed. Give prior to Reclast 2 tablet ctive potassium chloride 20 mEq TbER Indications:Postmenopausal osteoporosis,Hyperparathyroidism, unspecified (HCC), H/O gastric bypass,Vitamin D deficiency,Intestinal malabsorption, unspecified type (HCC),H/O thyroidectomyTake 20 mEq by mouth three times daily.Active metoprolol tartrate, short acting, (LOPRESSOR) 25 mg tablet Indications:Postmenopausal osteoporosis,Hyperparathyroidism, unspecified (HCC), H/O gastric bypass,Vitamin D deficiency,Intestinal malabsorption, unspecified type (HCC),H/O thyroidectomyTake 25 mg by mouth twice daily.Active TRIAMTERENE-HYDROCHLOROTHIAZID ORAL Indications:Postmenopausal osteoporosis,Hyperparathyroidism, unspecified (HCC), H/O gastric bypass,Vitamin D deficiency,Intestinal malabsorption, unspecified type (HCC),H/O thyroidectomyTake by mouth.Active warfarin (COUMADIN) 5 mg tablet Indications:Postmenopausal osteoporosis,Hyperparathyroidism, unspecified (HCC), H/O gastric bypass,Vitamin D deficiency,Intestinal malabsorption, unspecified type (HCC),H/O thyroidectomyTake 5 mg by mouth daily as directed.Active ferrous sulfate 325 mg (65 mg iron) tablet Indications:Postmenopausal osteoporosis,Hyperparathyroidism, unspecified (HCC), H/O gastric bypass,Vitamin D deficiency,Intestinal malabsorption, unspecified type (HCC),H/O thyroidectomyTake 325 mg by mouth daily with breakfast.Active ZINC CHELATE ORAL Indications:Postmenopausal osteoporosis,Hyperparathyroidism, unspecified (HCC), H/O gastric bypass,Vitamin D deficiency,Intestinal malabsorption, unspecified type (HCC),H/O thyroidectomyTake 22 mg by mouth.Active CALCIUM ORAL Indications:Postmenopausal osteoporosis,Hyperparathyroidism, unspecified (HCC), H/O gastric bypass,Vitamin D deficiency,Intestinal malabsorption, unspecified type (HCC),H/O thyroidectomyTake 626 mg by mouth once daily.Active HOMEOPATHIC DRUGS (PHOSPHORUS ORAL) Indications:Postmenopausal osteoporosis,Hyperparathyroidism, unspecified (HCC), H/O gastric bypass,Vitamin D deficiency,Intestinal malabsorption, unspecified type (HCC),H/O thyroidectomyTake 398 mg by mouth once daily.Active Active Problems ProblemNoted DateDiagnosed DateIntestinal obntdeuqbjhvx98/25/2016H/O nzypqxggneaos28/25/2016Height loss07/04/2015Contracture of palmar fascia 06/29/2008Disorder of bone and /23/2009Unspecified vitamin D kvgkfvdofp66/23/2009Cramp of limb05/03/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 ndkbchiryxrrv53/23/2009Hyperparathyroidism, yibqtuiqwzu26/23/2533Acopzdo83/23/2009 Family History Medical HistoryRelationCommentsDiabetesFatherStrokeFatherDiabetesMotherHeart MotherStrokeMotherRelationStatusCommentsFatherDeceasedMotherAlive Social History Tobacco UseTypesPacks/DayYears UsedDateSmoking Tobacco: Former Comments:smoked 1-2 cigs a d ay for 2-3 yrs and quit in 1979 Alcohol UseStandard Drinks/WeekCommentsYes0 (1 standard drink = 0.6 oz pure alcohol)Area Deprivation IndexAnswerDate RecordedNational Score (1-100), lower number is lower riskNot on file02/15/2020State Score (1-10), lower number is lower riskNot on file02/15/2020Data from: https://www.neighborhoodatlas.medicine.[facility].edu/. Last address used for calculationNot on file02/15/2020CommentsNoSex and Gender Information ValueDate RecordedSex Assigned at BirthNot on fileLegal WfrWhwedf65/02/2012 8:17 AM ESTGender IdentityNot on fileSexual OrientationNot on fileOccupationIndustry Job Start DateJob End DateRetiredNot on fileNot on fileNot on file Last Filed Vital Signs Vital SignReadingTime TakenCommentsBlood Oitlgzdg502/6905 9:02 AM EDT Bamdp3354 9:02 AM BFISpovoathhfg55.2 ??C (97.2 ??F)07/15/2017 9:02 AM EDTRespiratory Rate--Oxygen Saturation--Inhaled Oxygen Concentration--Weight 108.4 kg (239 lb)07/15/2017 9:02 AM MRHNdqwgg823.8 cm (5' 4.5 )07/15/2017 9:02 AM EDTBody Mass Index40.3905 9:02 AM EDT Plan of Treatment Health MaintenanceDue DateLast DoneCommentsAnxiety Lgunwnhuu64/14/1973Depression Reowupcsa12/14/1973Hepatitis C Njcaufvyh88/14/1973DTaP,Tdap,Td Vaccine (1 - Tdap)1973Mammogram Upcvagafm20/14/1995CT Uegtkxhzmjvc87/14/2000Cologuard (FIT-DNA)09/22/19998717Fkfmksxvndj97/14/2000Colorectal Cancer Qngqczkyi29/14/2000 Fecal Occult Blood09/22/1999Lipid Cctxinkdz53/14/5443Nozkonjzhyuam88/14/2000 Pneumococcal Vaccine: 50+ (1 of 1 - PCV)2004Shingrix Vaccine (1 of 2) 2004Diabetes Smpvqmbgw35Bone Density Btfsixwsl56/14/2020 07/15/2017, 07/04/2015, 07/04/2015, Additional history existsAdvance Directive Gijzscktwh54/01/2025ovid-19 Vaccine ( - 2024- season)2024Influenza Vaccine (#1)2024RSV Vaccine (1 - 1-dose 75+ series)2029 Procedures Procedure NamePriorityDate/TimeAssociated DiagnosisCommentsDXA-AXIAL SKELETON Yelgggy1907/15/2017 8:57 AM EDT Disorder of bone and cartilage Vitamin D deficiency BASIC METABOLIC KHOZBDqufzpk31/25/2016 11:33 AM EDT Postmenopausal osteoporosis Hyperparathyroidism, unspecified (HCC) H/O gastric bypass Vitamin D deficiency Intestinal malabsorption, unspecified type H/O thyroidectomy from Last 3 Months or Most Recently Relevant to Health Maintenance Results * DXA-AXIAL SKELETON (07/15/2017 8:57 AM EDT)ComponentValueRef RangeTest Method Analysis TimePerformed AtPathologist SignatureLOWEST T-SCORE-2.5DIVISION OF RADIOLOGYAnatomical RegionLateralityModalityRadiographic ImagingSpecimen (Source)Anatomical Location / LateralityCollection Method / VolumeCollection TimeReceived Time07/15/2017 8:57 AM EDT Impressions 07/19/2017 2:42 PM EDT IMPRESSION: THE LOWEST T-SCORE IS -2.5 DIAGNOSIS: Osteoporosis Spine: ??Increased bone mass in spine. Hip: ??Increased bone mass in hip. FRACTURE RISK: Increased RISK FACTORS: This patient is a 61 years ?? Female. MENSTRUAL STATUS: She reports menstrual status [...] age, bone density and risk factors: - ?? the patient reports past therapy with a bisphosphonate - ?? the patient has had an increase in bone mass on current therapy. - ?? the patient should take calcium, the recommended dose is 5894-7424 mg per day along with 800-1000 IU vitamin D (some patients may require higher doses of vitamin D). - ?? clinical correlation is required to determine the need for continued therapy. LIMITATIONS: - ?Degenerative changes in the spine may artificially increase bone mass and make the reading unreliable L1,L2 excluded. FOLLOW-UP: Recommended in 2 years CC: ??Dr. 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 M5B ?? 0804 ??- ??BD DXA - AXIAL SKELETON -NB ??/ PROCEDURE REASON: multiple diagnoses ? * * * * Physician Interpretation * * * * Bone Density Report: ??[employer] X-ray Absorptiometry DXA Model: A50 [employer] ([place]) (S/N: [id number]) SITE SCANNED: Lumbar spine, left hip and left forearm Date Scanned: ??07/15/2017 8:57 AM RESULT: Lumbar spine (L1-L2): 0.963 g/cm2, T-score -1.7, Z-score -0.3 Lumbar spine: 2015: 0.892 g/cm2 Lumbar spine: 2012: 1.002 g/cm2 Lumbar spine change: ??+0.071 g/cm2, +8.0 %, Left Femoral Neck: 0.748 g/cm2, T-score -2.1, Z-score -0.7 Left Femoral Neck: 2015: 0.698 g/cm2 Left Femoral Neck: 2012: 0.756 g/cm2 Left Femoral Neck Change ??+0.050 g/cm2, +7.2 %, Left Total Hip: 0.747 g/cm2, T-score -2.1, Z-score -1.0 Left Total Hip: 2015: 0.713 g/cm2 Left Total Hip: 2012: 0.765 g/cm2 Left Total Hip change: Stable bone mass ?? Left Forearm, Distal 1/3 of Radius: 0.653 g/cm2, T-score -2.5, Z-score -1.4 Left Forearm: 2015: 0.661 g/cm2 Left Forearm: 2012: 0.700 g/cm2 Left Forearm Change: Stable bone mass ?? Authorizing ProviderResult TypeResult StatusAbby Lester Hurley MDRAD-PAMAFinal Result * (ABNORMAL) BASIC METABOLIC PNL (07/04/2015 11:33 AM EDT)ComponentValueRef RangeTest MethodAnalysis TimePerformed AtPathologist ByvrtvorhKurtcaz7091 - 100 mg/dL07/04/2015 5:20 PM [facility] URRAXIHLDIPML603 - 25 mg/dL07/04/2015 5:20 PM [facility] LABORATORYCreatinine0.68(L) 0.70 - 1.40 mg/dL07/04/2015 5:20 PM [facility] LABORATORYSodium 998604 - 148 mmol/L07/04/2015 5:20 PM [facility] Potassium3.73.5 - 5.0 mmol/L07/04/2015 5:20 PM [facility] HDUNCGBXVGVwibzzuw72298 - 110 mmol/L07/04/2015 5:20 PM [facility] DWXTDSNLWEPR69726 - 32 mmol/L07/04/2015 5:20 PM [facility] LABORATORYAnion Wgb534 - 15 mmol/L07/04/2015 5:20 PM [facility] LABORATORYCalcium9.78.5 - 10.5 mg/dL07/04/2015 5:20 PM [facility] LABORATORYeGFR->6004 5:20 PM [facility] LABORATORYeGFR-All Other Races>60.07/04/2015 5:20 PM [facility] LABORATORYComment: eGFR (Estimated GFR) Units of measure: mL/min/1.73 [...] eGFR may not accurately reflect actual GFR. Specimen (Source)Anatomical Location / LateralityCollection Method / Volume Collection TimeReceived TimeBlood specimen (specimen)BLOOD SPECIMEN / Unknown 07/04/2015 11:33 AM EDT07/04/2015 11:35 AM EDT Narrative Authorizing ProviderResult TypeResult StatusAbby Lesetr Hurley MDLABORATORYFinal ResultPerforming OrganizationAddressCity/State/ZIP CodePhone Number [facility] [address] [place] [address] from Last 3 Months or Most Recently Relevant to Health Maintenance Insurance [facility] Address: [address] [place] [address] Care Teams Team MemberRelationshipSpecialtyStart DateEnd Noel Farnsworth II, MD PCP - GeneralInternal Medicine09/15/12
--- OUTSIDE RECORDS SUMMARY | 2025-01-19 08:27 | XMS_ITS | Clinical Summary ---
Author Organization [facility] Address [address] [place] [address] Phone Care Team Providers Care Medical Scribe Name Role Phone Noel Farnsworth MD Primary Care Provider [phone] Allergies Active AllergyReactionsCriticalityNoted DateCommentsChlorzoxazoneHivesMedium 12/27/2022 Medications MedicationSigDispense QuantityRefillsLast FilledStart DateEnd DateStatus BACILLUS COAGULANS-INULIN ORAL Take 1 tablet by mouth once daily.Active calcium carbonate 600 mg calcium (1,500 mg) tablet Take 1 tablet (1,500 mg) by mouth once daily.Active cholecalciferol (Vitamin D-3) 25 MCG (1000 UT) tablet Take 80 tablets (80,000 Units) by mouth once daily.Active ascorbic acid (Vitamin C) 1,000 mg tablet Take 2 tablets (2,000 mg) by mouth once daily.Active cyanocobalamin, vitamin B-12, (VITAMIN B-12 ORAL) Take 1 tablet by mouth once daily.Active docosahexaenoic acid/epa (FISH OIL ORAL) Take 1,400 mg by mouth once daily.Active copper gluconate 2 mg tablet Take 1 tablet by mouth once daily.Active multivitamin capsule Take 1 capsule by mouth once daily.Active famotidine (Pepcid) 20 mg tablet Take 1 tablet (20 mg) by mouth as needed at bedtime.05/04/2020ctive ferrous sulfate 325 (65 Fe) MG tablet Take 1 tablet by mouth 2 times a day.02/09/2020Active warfarin (Coumadin) 2.5 mg tablet Take by mouth. As directed by Agnes coumadin hdrywd0208/24/2020ctive zinc gluconate 50 mg tablet Take 1 tablet by mouth once daily.Active MAGNESIUM ORAL Take 400 mg by mouth once daily.Active turmeric root extract 500 mg tablet Take 1 tablet by mouth once daily.Active spironolactone (Aldactone) 25 mg tablet Indications:Essential hypertensionTake 1 tablet (25 mg) by mouth once daily. 90 tablet 5Active potassium chloride CR 20 mEq ER tablet Indications:HypokalemiaTake 1 tablet (20 mEq) by mouth 4 times a day. 360 tablet /6Active vonoprazan (Voquezna) 20 mg tablet Take by mouth.Active metoprolol tartrate (Lopressor) 25 mg tablet Indications:Essential hypertensionTake 1 tablet (25 mg) by mouth 2 times a day. 180 tablet 5Active torsemide (Demadex) 20 mg tablet Indications:Essential hypertensionTake 1 tablet (20 mg) by mouth once daily. 90 tablet 5Active Active Problems ProblemNoted DateDiagnosed DateIron deficiency xoolqh1611/28/2023MI 40.0-44.9, adult05/13/2023Former bhfftg0105/13/2023ellulitis of right lower extremity 12/27/2022Edema of both legs12/27/2022Essential awshbuuajvef73/19/2023ermanent atrial fibrillation with RVR13936Ewtunrbpaly91/19/2023Sleep apnea12/27/2022 Cqkxfyzjglybou18/19/2023 Resolved Problems ProblemNoted DateDiagnosed DateResolved DateHigh risk medication use12/27/2022 11/28/2023 Immunizations ImmunizationAdministration DatesNext DuePfizer Purple Cap ZSWJ-QzN-661/09/2020, 06/30/2020,06/07/2020 Family History Medical HistoryRelationNameCommentsHeart attackBrotherThroat cancerBrothercva Fatherparkinson's diseaseFathercvaMotherRelationNameStatusCommentsBrotherFather Mother Social History Tobacco UseTypesPacks/DayYears UsedDateSmoking Tobacco: FormerCigarettesQuit: 1981 Tobacco Cessation:Counseling Given: Not Answered Alcohol UseStandard Drinks/WeekCommentsYes0 (1 standard drink = 0.6 oz pure alcohol)socialCommentsUnknownSex and Gender InformationValueDate RecordedSex Assigned at BirthNot on fileLegal AsgKcthxk52/26/2022 8:34 PM EST Gender IdentityNot on fileSexual OrientationNot on file Last Filed Vital Signs Vital SignReadingTime TakenCommentsBlood Tgpalqmi870/68008/27/2024 9:06 AM EDT Gmwgi7283/19/2025 9:06 AM EDTTemperature--Respiratory Rate--Oxygen Saturation-- Inhaled Oxygen Concentration--Jvndsw499 kg (242 lb)08/27/2024 9:06 AM EDTHeight 165.1 cm (5' 5 )08/27/2024 9:06 AM EDTBody Mass Index40.27008/27/2024 9:06 AM EDT Plan of Treatment DateTypeDepartmentCare Team (Latest Contact Info)Txvmmabcvgd97/23/2026 9:00 AM EDTOffice Visit [facility] [address] [facility] [address] [place] [address] Mily Prabhakar MD [address] [place] [address] Health MaintenanceDue DateLast DoneCommentsCT Lisnwdhrtddx55/14/1955FIT-DNA (Cologuard)1954FIT1954Lipid Panel1954Medicare Annual Wellness Visit (AWV)1955 7961Mgpagxeuqyvaq27/14/1955MMR Vaccines (1 of 1 - Standard series)09/22/1955Diabetes Akcldking36/14/1973Hepatitis C Advjgztwv72/14/1973 Pneumococcal Vaccine (1 of 2 - PCV)1973DTaP/Tdap/Td Vaccines (1 - Tdap) 1976RSV High Risk: (Elderly (60+) or Population) (1 - Risk 50-74 years 1-dose series)2004Zoster Vaccines (1 of 2)2004Influenza Vaccine (#1)COVID-19 Vaccine ( - season)2024 02/14/2021, 06/30/2020, 06/07/20206398Ksftvegpd31/09/202601/11/2024, 03/19/2024, 01/17/2022, Additional history existsBone Density Scan/, 01/17/2022, 07/15/2017TSH Level04/4/9964Vpsgfrkoovt08/20/2031 03/30/2020, 03/30/2020olorectal Cancer Ukjkfhofw42/20/2031Irritable Bowel MnykruasQfwtgjcievfm02/20/2021HIB VaccinesAged OutNo longer eligible based on patient's age to complete this topicHPV VaccinesAged OutNo longer eligible based on patient's age to complete this topicHepatitis A VaccinesAged OutNo longer eligible based on patient's age to complete this topicHepatitis B VaccinesAged OutNo longer eligible based on patient's age to complete this topicIPV Vaccines Aged OutNo longer eligible based on patient's age to complete this topic Meningococcal VaccineAged OutNo longer eligible based on patient's age to complete this topicRotavirus VaccinesAged OutNo longer eligible based on patient's age to complete this topic Insurance Care Teams Team MemberRelationshipSpecialtyStart DateEnd Date Noel Farnsworth MD [address] [place] [address] [facility] - General10/19/22
--- OUTSIDE RECORDS SUMMARY | 2025-01-19 08:27 | XMS_ITS | Clinical Summary ---
Author Organization [facility] Address [address] [facility] [place] [address] Care Team Providers Care Global Sourcing Manager Name Role Phone Unavailable Primary Care Provider Unavailabl e Source Comments The following information is NOT included in Care Everywhere downloads:Psychiatric notes, ECG results, Cardiac Rehab notes, Pulmonary Function notes, data from SmartForms (includes but not limited toPregnancy data,audiograms, eye exams, pre-surgical evaluation notes, well-child exam data).[facility] Allergies Active AllergyReactionsCriticalityNoted OkvvBpxswbvfUcvukerxkieapYbzup62/17/2008 Active Problems ProblemNoted DateDiagnosed DateCarpal tunnel kmkmvase25/17/2008Trigger finger (acquired)12/26/2007Contracture of palmar hvpydn1312/26/2007 Social History Tobacco UseTypesPacks/DayYears UsedDateSmoking Tobacco: Never Assessed CommentsNoSex and Gender InformationValueDate RecordedSex Assigned at BirthNot on fileLegal OegNkfxcs54/04/2012 12:42 PM ESTGender IdentityNot on fileSexual OrientationNot on file Last Filed Vital Signs Vital SignReadingTime TakenCommentsBlood Hstpogav657/7212/26/2007 1:05 PM EDT Kiuew034112/26/2007 1:05 PM ZEOUieaglbucbs33.4 ??C (97.6 ??F)12/26/2007 1:05 PM EDTRespiratory Lgkw3601 1:05 PM EDTOxygen Saturation--Inhaled Oxygen Concentration--Benkfc150.2 kg (238 lb 8 oz)12/26/2007 1:05 PM EDTHeight--Body Mass Index-- Plan of Treatment Health MaintenanceDue DateLast EefaIkpmakfuDepxjniwkov86/14/1956Hepatitis C Whngovqe03/14/1973Tdap Bfdvsct6309/21/1972Hepatitis A (HAV) Vaccine (optional start 19+ years)1973Tetanus (Td or Tdap) Idjnlci5709/21/1973Mammography 1994CRC Cqxcujfqz37/14/2387Vvdreyszklr48/14/2000Cologuard (Stool DNA) 09/22/1999FIT09/22/1999Pneumococcal Vaccine(s) (50+ yrs) (1 of 1 - PCV) 2004Shingles (RZV) Vaccine (1 of 2)2004Hepatitis B (HBV) Vaccine (optional start 60+ years)2014Bone Hbssvgzpsnwl61/14/2020COVID-19 Vaccine (1 - 2024- season)2024Influenza Vaccine (#1)2024RSV vaccine (adult) (1 - 1-dose 75+ series)2029Pap SmearDiscontinued Insurance
--- OUTSIDE RECORDS SUMMARY | 2025-01-19 08:27 | XMS_ITS | Clinical Summary ---
Author Organization [employer] tem Address [id number] [address] [place] [address] Care Team Providers Care Metallurgist Process Name Role Phone Noel Farnsworth MD Primary Care Provider [phone] Allergies Active AllergyReactionsCriticalityNoted DateCommentsChlorzoxazoneHives,Other (See Comments)12/26/2007GabapentinOther (See Comments)01/09/2021 Medications MedicationSigDispense QuantityRefillsLast FilledStart DateEnd DateStatus ascorbic acid, vitamin C, (VITAMIN C) 1000 mg tablet Vitamin C 1,000 mg tablet Take 1 tablet twice a day by oral route.Active aspirin 81 mg daily.Active ferrous sulfate 325 (65 FE) mg tablet ferrous sulfate 325 mg (65 mg iron) tabletActive fluticasone propionate (FLONASE) 50 mcg/actuation nasal spray Administer 2 sprays into each nostril once daily.04/03/2022ctive metoprolol tartrate (LOPRESSOR) 25 mg tablet metoprolol tartrate 25 mg tabletActive potassium chloride 20 mEq tablet extended release Take 1 tablet (20 mEq total) by mouth.Active spironolactone (ALDACTONE) 25 mg tablet Take 2 tablets (50 mg total) by mouth in the morning.05/29/2022ctive warfarin (COUMADIN) 5 mg tablet warfarin 5 mg tabletActive torsemide (DEMADEX) 20 mg tablet Take 1 tablet (20 mg total) by mouth daily.05/31/2022ctive cholecalciferol (VITAMIN D3) 50,000 units capsule Take 1 capsule (50,000 Units total) by mouth in the morning. 100 capsule 5Active Active Problems ProblemNoted DateDiagnosed DateSubclinical sawfiidhefqops73/15/2025 Assessment & Plan (06/23/2024 11:06 AM EDT): Continue monitoring. We will obtain thyroid function studies prior to her next appointment Primary mzdcoeynyieyojdoigs07/09/2024 Assessment & Plan (06/23/2024 11:05 AM EDT): No compelling reasons to recommend parathyroidectomy. We will continue serum calcium monitoring Assessment & Plan (06/18/2023 10:48 AM EDT): No compelling reasons to recommend parathyroidectomy. We will continue serum calcium monitoring Vitamin D /09/2024 Assessment & Plan (06/23/2024 11:06 AM EDT): 25 hydroxy vitamin-D levels at target on current regimen. We will obtain 25 hydroxyvitamin D prior to her next appointment in 1 year Assessment & Plan (06/18/2023 10:48 AM EDT): 25 hydroxy vitamin-D levels at target on current regimen Age-related osteoporosis without current pathological kqgrecyn91/08/2023 Assessment & Plan (06/23/2024 11:05 AM EDT): Patient doing well on calcium and vitamin-D supplementation without clinical evidence of fractures.On a drug holiday after completing 5 years of Reclast. We will obtain a follow-up bone mineral density in March 2025. Fall precautions and the importance of exercise discussed with patient Assessment & Plan (06/18/2023 10:48 AM EDT): Patient doing well on calcium and vitamin-D supplementation without clinical evidence of fractures.On a drug holiday after completing 5 years [...] the importance of exercise discussed with patient Irzeuehyabuxnlgrens71/08/2023 Assessment & Plan (06/16/2022 5:37 PM EDT): 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 She also has primary hyperparathyroidism without compelling reasons to recommend parathyroidectomy. We will continue monitoring PTH and serum calcium levels Encounters DateTypeDepartmentCare KnzzBoonslppnao39/16/2025Orders Only [facility] Adult Endocr[facility]ology, A Department of [address] [address] Tala Borrreo LPN Subclinical hypothyroidism (Primary Dx); Vitamin D sawrfabiuv58/15/2025Telephone [facility], A Department of [address] [address] Tala Borrero LPN 12/21/2024Telephone [facility], A Department of [address] [address] Tala Borrero LPN from Last 3 Months Social History Tobacco UseTypesPacks/DayYears UsedDateSmoking Tobacco: FormerCigarettes Smokeless Tobacco: Never Tobacco Cessation:Counseling Given: Not Answered Comments:41 years ago Alcohol UseStandard Drinks/WeekCommentsYes0 (1 standard drink = 0.6 oz pure alcohol)maybe 2 a monthChildcareAnswerDate HlcxquauHayhajugwZjukdyr37/12/2019 EmploymentAnswerDate QbgswjvzImgjcaddyzBmzfhep43/12/2019Hunger ScreeningAnswer Date RecordedWithin the past 12 months we worried whether our food would run out before we got money to buy more.Never True06/23/2024Within the past 12 months the food we bought just didn't last and we didn't have money to get more.Never True06/23/2024CommentsUnknownSex and Gender InformationValueDate RecordedSex Assigned at BirthNot on fileLegal XckPybfja61/06/2015 12:06 PM EDT Gender IdentityNot on fileSexual OrientationNot on file Last Filed Vital Signs Vital SignReadingTime TakenCommentsBlood Xsfdbkom798/7004 9:37 AM EDT Ubcbf7271/11/2023 10:08 AM EDTTemperature--Respiratory Rbrm316606/13/2022 10:08 AM EDTOxygen Saturation--Inhaled Oxygen Concentration--Gaqxxr953.1 kg (249 lb 4.8 oz)06/23/2024 9:37 AM KZEGvrdvl893.1 cm (5' 5 )06/13/2022 10:08 AM EDTBody Mass Index41.49006/13/2022 10:08 AM EDT Plan of Treatment DateTypeDepartmentCare Team (Latest Contact Info)Gezzjvmrqmu04/14/2026 9:30 AM EDTOffice Visit [facility] Department of [facility] [address] [facility] [address] [place] [address] Trung Richardson MD [address] [facility] [address] [place] [address] Health MaintenanceDue DateLast DoneCommentsDepression Ccyfgelet66/14/1967 DTaP,Tdap and Td Vaccines (1 - Tdap)1973Zoster (Shingles) Vaccine (1 of 2) 2004RSV ( or age 60+ yrs) (1 - Risk 60-74 years 1-dose series) 2014Fall Risk Eqqgispri79/14/2020COVID-19 Vaccine (2024- season) 512/09/2020, 06/30/2020, 06/07/2020Influenza Paujfrw2211/09/2024 01/07/2012dult BMI Fqoecwnrp34/15/79030406/23/2024Tobacco Ncovvcaex09/15/2026 06/23/2024 Medical Devices Not on file Insurance Care Teams Team MemberRelationshipSpecialtyStart DateEnd Date Noel Farnsworth MD [address] [facility] [address] [place] [address] PCP - GeneralInternal Medicine06/13/22
--- OUTSIDE RECORDS SUMMARY | 2025-01-19 08:27 | XMS_ITS | Clinical Summary ---
Author Organization [facility] Address [address] [place] [address] Care Team Providers Care Shuttle Veneering Supervisor Name Role Phone Noel Farnsworth MD Primary Care Provider [phone] Allergies Active AllergyReactionsCriticalityNoted DateCommentsChlorzoxazoneHives,Unknown 12/26/20071437TffknbfjsbAjldefg59/01/2021 Medications MedicationSigDispense QuantityRefillsLast FilledStart DateEnd DateStatus Ascorbic Acid (vitamin C) 1000 MG tablet Active aspirin 81 MG EC tablet Take 1 tablet by mouth DailyActive famotidine (Pepcid) 20 MG tablet Active potassium chloride CR (Klor-Con M20) 20 MEQ ER tablet Active spironolactone (Aldactone) 25 MG tablet Take 25 mg by mouth in the morning and 25 mg before bedtime.Active warfarin (Coumadin) 5 MG tablet 1 (one) time each day at the same timeActive Fillmore-3 Fatty Acids (Fish Oil) 1200 MG capsule delayed-release Active torsemide (Demadex) 20 MG tablet Indications:Edema, unspecified typeTAKE 1 TABLET BY MOUTH EVERY DAY 100 tablet ctive fluticasone (Flonase) 50 MCG/ACT nasal spray Indications:Acute dysfunction of left eustachian tubeAdminister 1 spray into each nostril in the morning. Shake gently. Before first use, prime pump. After use, clean tip and replace cap.. 16 g ctive calcium carbonate 1500 (600 Ca) MG tablet Take 600 mg by mouth in the morning.Active Copper Gluconate 2 MG tablet Take 1 tablet by mouth in the morning.Active MAGNESIUM PO Take 250 mg by mouth in the morning.Active Turmeric 500 MG tablet Take 1 tablet by mouth in the morning.Active zinc gluconate 50 MG tablet Take 50 mg by mouth in the morning.Active metoprolol tartrate (Lopressor) 25 MG tablet Indications:Essential hypertension, benignTake 1 tablet (25 mg) by mouth every 12 (twelve) hours 200 tablet ctive cholecalciferol (Vitamin D-3) 1.25 MG (71614 UT) capsule Indications:Vitamin D deficiencyTake one capsule daily 100 capsule ctive ferrous sulfate 325 (65 Fe) MG tablet Indications:Bariatric surgery statusTake 1 tablet (325 mg) by mouth in the morning and 1 tablet (325 mg) before bedtime. 60 tablet 11004/16/330512/6Active warfarin (Coumadin) 2.5 MG tablet 07/31/2024tive Estrace 0.1 MG/GM vaginal cream See Instructions, 42.5 gm, Refill(s) 6, Apply pea-sized amount around urethra and inside vagina 3 times per week at night for one month then 2 times per week after for maintenance., [facility]/pharmacy #[id number]/5Active Vonoprazan Fumarate (Voquezna) 20 MG tablet Indications:Erosive esophagitisTake 20 mg by mouth Daily 100 tablet 5Active Additional Information Patient taking differently:20 mg Oral Daily,(No times of day reported), Reported on 12/31/2024 Azelastine HCl 137 MCG/SPRAY solution Indications:Seasonal allergiesAdminister 1 spray into affected nostril(s) in the morning and 1 spray before bedtime. Do all this for 14 days. 30 mL DiscontinuedHospital, Clinic, or Other Facility Administered MedicationOrdered DoseRouteFrequencyStart DateEnd DateStatus betamethasone acetate-betamethasone sodium phosphate (Celestone) injection 1 mL Indications:Right anterior shoulder pain1 mLIXOnce PRN Xhcsamxum91/23/2025 12/31/2024Ended betamethasone acetate-betamethasone sodium phosphate (Celestone) injection 1 mL Indications:Right anterior shoulder pain1 mLIXOnce PRN Inzscgpqt01/23/2025 12/31/2024Ended Active Problems ProblemNoted DateDiagnosed DateAbnormal /29/2025UTI symptoms 10/06/2024Subclinical tienrfimcfewrs81/15/2025Iron deficiency inabgx1211/28/2023 Former kcibdi3905/13/20238684Pcuscmtbehztpp55/19/2023Edema of both legs12/27/2022High risk medication use12/27/20222197Zucpcxoafcr66/19/2023cquired pes planus of left foot12/05/2022trophy of khzvzx2212/05/2022Elevated AST (SGOT)12/05/2022 Kilukseyefwm55/27/2023Left Achilles oxyeqlfirk71/27/2023Morbid iqikqoi2712/05/2022 Pes dpvxnu9212/05/2022iriformis iwgpvldb62/27/2023lantar fasciitis, bilateral 12/05/2022Other chronic ciezljznc02/27/2023Urge incontinence of urine12/05/2022 Mitral valve uhdsldbw16/17/2023-fib10/25/2022ERD (gastroesophageal reflux disease)10/25/2022Right anterior shoulder pain08/14/2022ervical paraspinal muscle spasm08/14/2022Right cervical aiknevmzqbvkn58/06/2023Seasonal allergies 10/12/2020PRD (laryngopharyngeal reflux disease)05/04/2020ochlear hydrops of right ear03/02/2020Left-sided tmgcalcm79/28/2020Sensorineural hearing loss (SNHL) of left ear with unrestricted hearing of right ear01/06/2020Abnormal intestinal wcakozrxqt97/24/2020Senile wdgahnforeng19/10/2020 Overview (12/05/2022): Last Assessment & Plan: Patient will continue adequate calcium and vitamin-D supplementation. We will obtain a follow-up bone mineraldensity in January 2023. Fall precautions and the importance of exercise discussed with patient Monoarticular ccwmahexh22/26/2020Primary osteoarthritis of right knee12/01/2018 Sfmfrftuhr79/13/2019Elevated levels of transaminase & lactic acid dehydrogenase 09/03/20177553Alyufxkmjiirq07/26/4011Btbkqksbxyacixed10/26/2018Asthmatic bronchitis 08/02/2017Internal derangement of left eyscqxpa72/01/0676Iobmnyc34/28/2016 History of gastric xudnup7607/25/2015Obstructive sleep apnea ervowjrq58/16/2016 Height loss07/04/2015H/O mlspcuhljorlq18/25/2016Fibrocystic breast changes 05/27/2015Lumbar nwpwuwvsqmhkb37/27/2015Chronic venous felxagmpwhyjg16/26/2015 Non-toxic multinodular slighh5201/03/2015Vitamin B-complex ofgsozulce58/26/2015 Cramp of limb05/03/2008Disorder of bone and yyyztncfc57/23/2009Intestinal disaccharidase deficiencies and disaccharide vqodolsniyisx85/23/2009Lumbago 05/03/20082792Scapnmopdrzizwcfzks63/23/2009 Overview (12/05/2022): Last Assessment & Plan: 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 She also has primary hyperparathyroidism without compelling reasons to recommend parathyroidectomy. We will continue monitoring PTH and serum calcium levels Vitamin D egimldoamu21/23/2009cquired trigger kjahbm0512/26/2007Carpal tunnel wurhoimn75/17/2008 Resolved Problems ProblemNoted DateDiagnosed DateResolved DateBMI 40.0-44.9, adult07/07/2024 10/06/2024MI 39.0-39.9,adult05/12//5Cellulitis of right lower qxoenmrnz63Edema of lower ovqzgocvj32nemia Encounters DateTypeDepartmentCare FzhzDudneqpbndj54/23/2025 9:15 AM EDTOffice Visit [facility] [address] [place] [address] Lazaro Borrero DO Right anterior shoulder pain12/31/2024amboo flowsheet [facility] [address] [place] [address] [place] [address] Lazaro Borrero DO 12/31/20245878Zcompd53/10/2025Refill [facility] [address] [place] [address] Noel Farnsworth MD Erosive lwivubxuwkf40/09/2025Telephone [facility] [address] [place] [address] Noel Farnsworth MD 12/07/2024bstract [facility] [address] [place] [address] Noel Farnsworth MD 12/03/2024bstract [facility] [address] [place] [address] Noel Farnsworth MD 12/03/2024bstract [facility] [address] [place] [address] Noel Farnsworth MD 12/02/2024bstract [facility] [address] [place] [address] Noel Farnsworth MD 10/26/2024Telephone [facility] [address] [place] [address] Noel Farnsworth MD from Last 3 Months Immunizations ImmunizationAdministration DatesNext DueInfluenza, seasonal, injectable, preservative free01/07/2012 Family History Medical HistoryRelationNameCommentsTongue cancerBrotherDiabetesFatherMultiple sclerosisFatherParkinsonismFatherStrokeFatherColon cancerMaternal CousinDiabetes MotherHeart diseaseMotherHeart failureMotherStrokeMotherMelanomaNeg HxRelation NameStatusCommentsBrotherFatherDeceasedMaternal CousinAliveMotherDeceased Social History Tobacco UseTypesPacks/DayYears UsedDateSmoking Tobacco: NeverSmokeless Tobacco: Never Tobacco Cessation:Counseling Given: Yes Alcohol UseStandard Drinks/WeekCommentsNever0 (1 standard drink = 0.6 oz pure alcohol)caffeine: nonePHQ-2AnswerDate RecordedPatient Health Questionnaire-2 Nfzkb129CommentsUnknownSex and Gender InformationValueDate RecordedSex Assigned at BirthNot on fileLegal LvoPotlfl70/15/2023 6:52 PM EDT Gender IdentityNot on fileSexual OrientationNot on file Last Filed Vital Signs Vital SignReadingTime TakenCommentsBlood Atzjjyql976/72010/06/2024 8:41 AM EDT Ytaur904610/06/2024 8:41 AM XTEVoweyluounb43.7 ??C (98.1 ??F)10/06/2024 8:41 AM EDTRespiratory Jnvp068210/06/2024 8:41 AM EDTOxygen Lkrnlergjq54%10/06/2024 8:41 AM EDTInhaled Oxygen Concentration--Wdxqmn316 kg (232 lb)12/31/2024 9:35 AM EDT Ivkgww309.6 cm (5' 4 )12/31/2024 9:35 AM EDTBody Mass Index39.8212/31/2024 9:35 AM EDT Plan of Treatment DateTypeDepartmentCare Team (Latest Contact Info)Wyzbnfgdcrz74/22/2026 10:00 AM ESTOffice Visit [facility] [address] [place] [address] Sherlyn Rucker, DO [address] [place] [address] 07/01/2025 8:30 AM EDTOffice Visit [facility] [address] [place] [address] Lazaro Borrero, DO [address] [place] [address] Health MaintenanceDue DateLast DoneCommentsCT Raydzbylplqq73/14/1955FIT-DNA 1954FIT1954FOBT1954Fijeyeknkaxap87/14/1955Pneumococcal Vaccine: 65+ Years (1 of 2 - PCV)1973COVID-19 Vaccine (4 - 2024-26 season) 512/09/2020, 06/30/2020, 06/07/2020Influenza Vaccine (#1)2024 01/07/20125311Tkxgmfsjw04/09/202601/11/2024, 02/20/2023, 02/20/2023, Additional history existsMedicare Annual Wellness (AWV)604/, 10/29/2023, 10/25/20229176Jtoxhltyczl56/08/203507/10/2024, 03/30/2020olorectal Cancer Screening 09/15/2034 Procedures Procedure NamePriorityDate/TimeAssociated DiagnosisCommentsPR ARTHROCENTESIS ASPIR&/INJ MAJOR JT/BURSA W/PXAzvdbjm57/23/2025 9:39 AM EDT Right anterior shoulder pain VT ARTHROCENTESIS ASPIR&/INJ MAJOR JT/BURSA W/NZKfembbr84/23/2025 9:39 AM EDT Right anterior shoulder pain HM TIYRVMLBMNJXkueaay90/08/2025 BI MAMMOGRAM SCREENING TOMOSYNTHESIS BDSREEKOHUszkpkx61/09/2025 3:41 PM EST Encounter for mammogram to establish baseline mammogram from Last 3 Months or Most Recently Relevant to Health Maintenance Results * VT ARTHROCENTESIS ASPIR&/INJ MAJOR JT/BURSA W/US (12/31/2024 9:39 AM EDT) Radha Farias ARRT - 12/31/2024 9:39 AM EDT FRANCK Morel 01/01/2025 3:05 PM L Inj/Asp: R subacromial bursa on 12/31/2024 9:39 AM Indications: pain Details: 25 G needle, ultrasound-guided Medications: 1 mL betamethasone acetate-betamethasone sodium phosphate 6 (3-3) MG/ML Consent was given by the patient. Authorizing ProviderResult TypeResult StatusLazaro Espino [facility]/BEDSIDE ORDERABLESFinal Result * VT ARTHROCENTESIS ASPIR&/INJ MAJOR JT/BURSA W/US (12/31/2024 9:39 AM EDT) Narrative Radha Barron, ARRT - 12/31/2024 9:39 AM EDT Radha Barron, ARRT 01/01/2025 3:05 PM L Inj/Asp: R glenohumeral on 12/31/2024 9:39 AM Indications: pain Details: 25 G needle, ultrasound-guided Medications: 1 mL betamethasone acetate-betamethasone sodium phosphate 6 (3-3) MG/ML Consent was given by the patient. Authorizing ProviderResult TypeResult Tasia Borrero [facility]/BEDSIDE ORDERABLESFinal Result * (ABNORMAL) Hm Colonoscopy (09/15/2024)Anatomical RegionLateralityModalityOther Specimen (Source)Anatomical Location / LateralityCollection Method / Volume Collection TimeReceived Time09/15/2024 Narrative 09/16/2024 10:13 AM EDT Polypectomy. See scanned document for full report Authorizing ProviderResult TypeResult Tesha Strickland [facility] Final Result * Bilateral screening mammogram with tomosynthesis (03/19/2024 3:41 PM EST) Anatomical RegionLateralityModalityBreastBilateralMammographySpecimen (Source) Anatomical Location / LateralityCollection Method / VolumeCollection Time Received Time03/19/2024 3:41 PM EST Impressions 03/19/2024 3:49 PM EST NO MAMMOGRAPHIC EVIDENCE OF MALIGNANCY. ? ROUTINE FOLLOW-UP IS RECOMMENDED IN ONE YEAR. ? RESULT CODE: 1 ? Negative ? DENSITY CODE: 1 (<25% glandular) ? FOLLOW UP: 1YR ? The false-negative rate of mammography is approximately 10-percent. ? Management of a palpable abnormality must be based on clinical grounds. ? Patient was entered into a reminder system with a target due date for the next mammogram. ? Impression dictated by: Erik Rodriguez M.D.03/19/2024 3:47 PM ? Dictation Location: DWS01 ? Transcribed By: ? PWS ?03/19/241546 ? Dictated By: ?Erik Rodriguez MD ?03/19/24 1541 ? Signed By: <Electronically signed by Erik Rodriguez MD in OV> ? 03/19/24 1547 Narrative 03/19/2024 3:49 PM EST [facility] ?[facility] ?[address] ? [place] [address] ? Mammography Report ? Signed ? Patient: Marla Figueredo ?MR#: [id number] ?? 6 ? : 1955 ?Acct:[id number] ? Age/Sex: 68 / F ?ADM Date: 03/19/24 ? Loc: [place] ?Room: ?Type: REG CLI ?? Attending Dr: Sherlyn Rucker DO ?? Copies to: Noel Farnsworth II, MD ?? Sherlyn Rucker DO ? Ordering Provider: Sherlyn Rucker DO ?? Date of Service: 03/19/24 ?? MM/MM screening mammo BI w/CAD: screening ? CLINICAL DATA: ??Screening for malignancy. ? SCREENING MAMMOGRAM - FULL FIELD DIGITAL WITH TOMOSYNTHESIS AND CAD ? COMPARISON:Priors dating back to 2019 ? Tomosynthesis craniocaudal and mediolateral oblique views of both breasts were obtained using low- dose digital technique. ?? This examination was reviewed with the aid of CAD. ? The breast tissue is almost entirely fatty. There are no dominant masses, typically malignant calcifications or architectural distortion. ??There has been no significant interval change. ? MM/MM screening mammo BI w/CAD ?? Procedure Note Radiology, Radiologist, - 03/19/2024 [facility] [address] [place] [address] Mammography Report Signed Patient: Marla Figueredo [facility]#: [id number] 6 : 5Acct:[id number] Age/Sex: 68 / FADM Date: 03/19/24 Loc: [place] Room:Type: [facility] Attending Dr: Sherlyn Rucker DO Copies [...] Erik Rodriguez M.D.03/19/2024 3:47 PM Dictation Location: S Transcribed By: [facility] 03/19/24 1547 Dictated By: Erik Rodriguez MD 03/19/24 1541 Signed By: <Electronically signed by Erik Rodriguez MD in OV> 03/19/24 1547 Authorizing ProviderResult TypeResult StatusKathleen E Rinkes DOIMG BI PROCEDURESFinal Result from Last 3 Months or Most Recently Relevant to [place] [address] Care Teams Team MemberRelationshipSpecialtyStart DateEnd Noel Farnsworth MD [address] [facility] [address] [place] [address] PCP - GeneralInternal Medicine08/14/22
--- OUTSIDE RECORDS SUMMARY | 2025-01-19 08:27 | XMS_ITS | Encounter Summary ---
Author Organization [facility] Address [address] [place] [address] Phone Care Team Providers Care Customer Field Representative Name Role Phone Noel Farnsworth MD Primary Care Provider [phone] Encounter Details DateTypeDepartmentCare Team (Latest Contact Info)Mxgahbukiut12/14/1956Orders Only [facility] [address] [place] [address] Scanning, Generic Provider Social History Tobacco UseTypesPacks/DayYears UsedDateSmoking Tobacco: Never Assessed CommentsUnknownSex and Gender InformationValueDate RecordedSex Assigned at Not on fileLegal CtqOaemoj99/26/2022 8:34 PM ESTGender IdentityNot on fileSexual OrientationNot on filedocumented as of this encounter Plan of Treatment DateTypeDepartmentCare Team (Latest Contact Info)Fsiadrtjcye64/23/2026 9:00 AM EDTOffice Visit [facility] [address] [facility] [address] [place] [address] Mily Prabhakar MD [address] [facility] [address], [address] [place] [address] NameTypePriorityAssociated DiagnosesOrder ScheduleOUTSIDE LAB SCANLabOrdered: 1954documented as of this encounter Visit Diagnoses Not on filedocumented in this encounter Care Teams Team MemberRelationshipSpecialtyStart DateEnd Date Noel Farnsworth MD [address] [facility] [address] [place] [address] [facility]10/19/22documented as of this encounter
[2025-01-19 09:00] LABS: Hematocrit 36.0 % (36.0-48.0); Hemoglobin 11.2 g/dL (12.0-16.0); Immature Granulocytes Abs Auto 0.01 10^3/uL (0.00-0.03); Immature Granulocytes Pct Auto 0.2 % (0.0-0.5); Lymphocytes Absolute Auto 1.2 10^3/uL (1.2-3.8); Mean Corpuscular HGB Conc 31.1 g/dL (29.9-35.2); Mean Corpuscular Hemoglobin 28.7 pg (26.7-34.0); Mean Corpuscular Volume 92.3 fL (81.0-99.0); Platelet Count 130 10^3/uL (150-450); Red Blood Count 3.90 10^6/uL (4.20-5.40); White Blood Count 6.1 10^3/uL (4.0-11.0)
[2025-01-19 09:38] LABS: Anion Gap 11.7; Carbon Dioxide 28.4 mmol/L (21.0-32.0); Chloride 106 mmol/L (98-107); Glucose 87 mg/dL (74-106); Potassium 4.1 mmol/L (3.5-5.1); Sodium 142 mmol/L (136-145)
[2025-01-19 09:39] LABS: Alanine Aminotransferase 23 U/L (14-59); Albumin Globulin Ratio 0.9; Albumin Level 3.2 g/dL (3.4-5.0); Alkaline Phosphatase 85 U/L (46-116); Aspartate Amino Transferase 19 U/L (15-37); Blood Urea Nitrogen 28.0 mg/dL (7.0-18.0); Calcium 9.9 mg/dL (8.5-10.1); Estimated GFR (African America >60 (>=60 mL/min/1.73m^2); Estimated GFR (Non-African Ame >60 (>=60 mL/min/1.73m^2); Globulin 3.4 g/dL; Magnesium 2.3 mg/dL (1.8-2.4); Total Protein 6.6 g/dL (6.4-8.2)
[2025-01-19 10:01] LABS: Iron 49.0 ug/dL (50.0-170.0); Percent Iron Saturation 18.4 %; Total Iron Binding Capacity 266.0 ug/dL (250.0-450.0)
[2025-01-19 11:42] LABS: Ferritin 609.0 ng/mL (8.0-252.0); Folate 29.00 ng/mL (8.60-58.90)
[2025-01-20 04:07] LABS: Vitamin B12 823 pg/mL (232-1245)
== END 2025-01-19 08:21 | disposition home or self-care (01) ==
LOC: LAB 08:23
PROVIDERS: PCP Internal Medicine; Visit Provider Nurse Practitioner Family
DX: Z98.84 Bariatric surgery status (principal)
CPT/HCPCS: 36415; 80053; 82306; 82525; 82607; 82728; 82746; 83540; 83550; 83735; 84100; 84425; 84630; 85025

== ENCOUNTER 2025-02-01 07:47 | Outpatient (OUT) | payer MEDICARE, SELFPAY ==
--- OUTSIDE RECORDS SUMMARY | 2025-01-28 04:45 | XMS_ITS | Continuity of Care Document ---
Author Organization [place] [employer] [facility] Address [address] [place] [address] [place] [address] Phone Care Team Providers Care Truckman Name Role Phone Dallas Trevino MD Unavailable [...] Providers Copied on Encounter OFFICE/OUTPATI ENT VISIT, [facility] [employer] [facility], [address] [place] [address] [place], [place], [id number], [place] tel:[phone] [facility] No Information Belinda Haynes. [address] [place] [address], [id number], [place]. tel:[phone] Referring Provider: Dallas Pimentel, [address] [place] [address], [place], [address]. tel:[phone] OFFICE/OUTPATI ENT VISIT, [facility] [employer] [facility], [address] [place] [address], [id number], [place] tel:[phone] [facility] No Information Belinda Haynes. [address] [facility] [address], [place], [place], [id number], [place]. tel:[phone] Referring Provider: Dallas Pimentel, [address] [facility] [address], [place], [address]. tel:[phone] OFFICE/OUTPATI ENT VISIT, [employer] [facility], [address] [place] [address] [address], [place], [place], [id number], [place] tel:[phone] [facility] No Information Belinda Haynes. [address] [place] [address] [address], [place], [place], [id number], [place]. tel:[phone] Referring Provider: Dallas Pimentel, [address] [place] [address] [address], [place], [address]. tel:[phone] OFFICE/OUTPATI ENT VISIT, [employer] [facility], [address] [place] [address] [address], [place], [place], [id number], [place] tel:[phone] [facility] No Information Yue Topete. [address] [place] [address] [address], [place], [place], [id number], [place]. tel:[phone] Referring Provider: Yoselyn Turner, [address] [place] [address] [address], [place], [address]. tel:[phone] OFFICE/OUTPATI ENT VISIT, [employer] [facility], [address] [place] [address] [address], [place], [place], [id number], [place] tel:[phone] [facility] No Information Yue Topete. [address] [place] [address] [address], [place], [place], [id number], [place]. tel:[phone] Referring Provider: Yoselyn Turner, [address] [place] [address] [address], [place], [address]. tel:[phone] OFFICE/OUTPATI ENT VISIT, [employer] [facility], [address] [place] [address] [address], [place], [place], [id number], [place] tel:[phone] [facility] No Information Belinda Haynes. [address] [place] [address] [address] [facility], [place], [place], [id number], [place]. tel:[phone] Referring Provider: Dallas Pimentel, [address] [place] [address], [place], [address]. tel:[phone] OFFICE/OUTPATI ENT VISIT, [facility] [employer] [facility], [address] [place] [address] [address], [place], [place], [id number], [place] tel:[phone] [facility] No Information Belinda Hanyes. [address] [place] [address] Suite [facility], [place], [place], [id number], [place]. tel:[phone] Referring Provider: Dallas Pimentel, [address] [place] [address], [place], [address]. tel:[phone] OFFICE/OUTPATI ENT VISIT, [facility], [address] [place] [address] [address], [place], [place], [id number], [place] tel:[phone] [facility] No Information Belinda Haynes. [address] [place] [address] [address] [facility], [place], [place], [id number], [place]. tel:[phone] OFFICE/OUTPATI ENT VISIT, [facility], [address] [place] [address] [address], [place], [place], [id number], [place] tel:[phone] [facility] No Information Belinda Haynes. [address] [place] [address] [place] [address], [id number], [place]. tel:[phone] Referring Provider: Dallas Pimentel, [address] [place] [address], [place], [address]. tel:[phone] Family History Family Member Type Diagnosis Age At Onset No Information Payers Payer name Insurance type Covered alliance party ID Franco levi(s) [employer] Medicare Complete 16 [id number] Social History Type Description Quantity Date Captured Comments Sex Female Smoking Status No Information Chief Complaint And Reason For Visit No Information Reason For Referral Reason For Referral No Information Plan Of Treatment Date Type Action Status Appointment Marla Figueredo BOOKED History Of Present Illness Encounter Date Complaint History Of Prese nt Illness No Information Functional Status Date Functional Assessmen t No Information Instructions Date Instruction Additional Infor mation No Information Assessments Type Assessment Date No Information Patient Care Teams Name Effective Dates (start - stop) Status Members No Information
--- OUTSIDE RECORDS SUMMARY | 2025-02-01 07:50 | XMS_ITS | Clinical Summary ---
Author Organization [facility] [place] Address [address] [place] [address] Care Team Providers Care Car Sales Associate Name Role Phone Unavailable Primary Care Provider Unavailabl e Social History Tobacco UseTypesPacks/DayYears UsedDateSmoking Tobacco: Never Assessed CommentsUnknownSex and Gender InformationValueDate RecordedSex Assigned at Not on fileLegal CnsQtduyp72/29/2022 10:25 PM EDTGender IdentityNot on file Sexual OrientationNot on file Last Filed Vital Signs Vital SignReadingTime TakenCommentsBlood Yszscmaf280/7710 3:27 PM EDT Yjjrk167708/11/2019 9:04 AM NNPLjrjhyxfomb73.6 ??C (97.9 ??F)08/11/2019 9:01 AM EDTRespiratory Rate--Oxygen Cyqoxtxzda49%12/23/2019 3:28 PM EDTInhaled Oxygen Concentration--Iupyva515 kg (252 lb)12/23/2019 3:23 PM GUYKlwxrb973.1 cm (5' 5 ) 12/23/2019 3:23 PM EDTBody Mass Index41.9312/23/2019 3:23 PM EDT Plan of Treatment Not on file
--- OUTSIDE RECORDS SUMMARY | 2025-02-01 07:51 | XMS_ITS | Clinical Summary ---
Author Organization [facility] Address [address] [facility] [place] [address] Care Team Providers Care Channeler Name Role Phone Unavailable Primary Care Provider Unavailabl e Source Comments The following information is NOT included in Care Everywhere downloads:Psychiatric notes, ECG results, Cardiac Rehab notes, Pulmonary Function notes, data from SmartForms (includes but not limited toPregnancy data,audiograms, eye exams, pre-surgical evaluation notes, well-child exam data).[facility] Allergies Active AllergyReactionsCriticalityNoted TnvzZepedonpIkusentdyyfupQfjoh18/17/2008 Active Problems ProblemNoted DateDiagnosed DateCarpal tunnel /17/2008Trigger finger (acquired)12/26/2007Contracture of palmar qcgqzy3312/26/2007 Social History Tobacco UseTypesPacks/DayYears UsedDateSmoking Tobacco: Never Assessed CommentsNoSex and Gender InformationValueDate RecordedSex Assigned at BirthNot on fileLegal NivAoazpc06/04/2012 12:42 PM ESTGender IdentityNot on fileSexual OrientationNot on file Last Filed Vital Signs Vital SignReadingTime TakenCommentsBlood Bwqgegrl361/7212/26/2007 1:05 PM EDT Dbplm884812/26/2007 1:05 PM QDYDtfmdztndyw14.4 ??C (97.6 ??F)12/26/2007 1:05 PM EDTRespiratory Adwz2324 1:05 PM EDTOxygen Saturation--Inhaled Oxygen Concentration--Ltbnwt681.2 kg (238 lb 8 oz)12/26/2007 1:05 PM EDTHeight--Body Mass Index-- Plan of Treatment Health MaintenanceDue DateLast CnbdLvsbqdzrYxldruzvcwk11/14/1956Hepatitis C Rmfdwygv39/14/1973Tdap Wkwiztm7309/21/1972Hepatitis A (HAV) Vaccine (optional start 19+ years)1973Tetanus (Td or Tdap) Zmnutnx9409/21/1973Mammography 1994CRC Eyqydgwdh99/14/2653Mzqosaemwsi62/14/2000Cologuard (Stool DNA) 09/22/1999FIT09/22/1999Pneumococcal Vaccine(s) (50+ yrs) (1 of 1 - PCV) 2004Shingles (RZV) Vaccine (1 of 2)2004Hepatitis B (HBV) Vaccine (optional start 60+ years)2014Bone Bfnvqmeelsbi59/14/2020COVID-19 Vaccine (1 - 2024- season)2024Influenza Vaccine (#1)2024RSV vaccine (adult) (1 - 1-dose 75+ series)2029Pap SmearDiscontinued Insurance
--- OUTSIDE RECORDS SUMMARY | 2025-02-01 07:51 | XMS_ITS | Clinical Summary ---
Author Organization [facility] Address [address] [place], [place] [address] Care Team Providers Care Adult Daycare Coordinator Name Role Phone Javad MARSH MD, Noel Snow Primary Care Provider [phone] Allergies Active AllergyReactionsCriticalityNoted DateCommentsparafum forte [Other]Hives 05/03/2008 Medications MedicationSigDispense QuantityRefillsLast FilledStart DateEnd DateStatus HYDROCHLOROTHIAZIDE 12.5 MG TAB Take one(1) tablet daily.ctive calcium citrate(CALCITRATE 950 MG TAB) Take one(1) tablet three times daily.ctive diphenhydramine hcl(ALLERGY MEDICINE 25 MG TAB) A and D one tablet once jnuex667ctive ascorbic acid(VITAMIN C 1,000 MG TAB) Take one(1) tablet daily.ctive omega-3 fatty acids/vitamin e(FISH OIL 1,000 MG CAP) once daily 1,300 mgctive Cholecalciferol, Vitamin D3, 10,000 unit ORAL Cap Takes 125,000 IU fanhp412ctive acetaminophen (TYLENOL EXTRA STRENGTH) 500 mg tablet [...] once daily.Active Active Problems ProblemNoted DateDiagnosed DateIntestinal hsfeczsvssqun85/25/2016H/O yubdgytysayxd09/25/2016Height loss07/04/2015Contracture of palmar fascia 06/29/2008Disorder of bone and wsfghxomq06/23/2009Unspecified vitamin D lrnykrlcji89/23/2009Cramp of limb05/03/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 zwusbjldegqhy83/23/2009Hyperparathyroidism, fynjichkirk56/23/6856Jffbmiw03/23/2009 Family History Medical HistoryRelationCommentsDiabetesFatherStrokeFatherDiabetesMotherHeart MotherStrokeMotherRelationStatusCommentsFatherDeceasedMotherAlive Social History Tobacco UseTypesPacks/DayYears UsedDateSmoking Tobacco: Former Comments:smoked 1-2 cigs a d ay for 2-3 yrs and quit in 1979 Alcohol UseStandard Drinks/WeekCommentsYes0 (1 standard drink = 0.6 oz pure alcohol)Area Deprivation IndexAnswerDate RecordedNational Score (1-100), lower number is lower riskNot on file02/15/2020State Score (1-10), lower number is lower riskNot on file02/15/2020Data from: https://www.neighborhoodatlas.medicine.[facility].edu/. Last address used for calculationNot on file02/15/2020CommentsNoSex and Gender Information ValueDate RecordedSex Assigned at BirthNot on fileLegal ZnfHyiutd76/02/2012 8:17 AM ESTGender IdentityNot on fileSexual OrientationNot on fileOccupationIndustry Job Start DateJob End DateRetiredNot on fileNot on fileNot on file Last Filed Vital Signs Vital SignReadingTime TakenCommentsBlood Sjmugpkj669/6905 9:02 AM EDT Sheas8053 9:02 AM DBQGnylzbfqepm19.2 ??C (97.2 ??F)07/15/2017 9:02 AM EDTRespiratory Rate--Oxygen Saturation--Inhaled Oxygen Concentration--Weight 108.4 kg (239 lb)07/15/2017 9:02 AM OZLSlquwi892.8 cm (5' 4.5 )07/15/2017 9:02 AM EDTBody Mass Index40.3905 9:02 AM EDT Plan of Treatment Health MaintenanceDue DateLast DoneCommentsAnxiety Chyqcuuky73/14/1973Depression Hoifxyiqb33/14/1973Hepatitis C Drsotowpj97/14/1973DTaP,Tdap,Td Vaccine (1 - Tdap)1973Mammogram Kuqtvbqjh59/14/1995CT Xrcqcxufrilr35/14/2000Cologuard (FIT-DNA)09/22/19996610Nhkgrcefvwn08/14/2000Colorectal Cancer Ifgnynbef88/14/2000 Fecal Occult Blood09/22/1999Lipid Hvdcawohf09/14/3457Uacwqgnpuloxu75/14/2000 Pneumococcal Vaccine: 50+ (1 of 1 - PCV)2004Shingrix Vaccine (1 of 2) 2004Diabetes Yosfglsrx54Bone Density Wkjzrvrch15/14/2020 07/15/2017, 07/04/2015, 07/04/2015, Additional history existsAdvance Directive Sfzyxuydvw40/01/2025ovid-19 Vaccine ( - 2024- season)2024Influenza Vaccine (#1)2024RSV Vaccine (1 - 1-dose 75+ series)2029 Procedures Procedure NamePriorityDate/TimeAssociated DiagnosisCommentsDXA-AXIAL SKELETON Kmaaxcj5807/15/2017 8:57 AM EDT Disorder of bone and cartilage Vitamin D deficiency BASIC METABOLIC FGPJAQwdgggl44/25/2016 11:33 AM EDT Postmenopausal osteoporosis Hyperparathyroidism, unspecified [...] should take calcium, the recommended dose is 3334-9076 mg per day along with 800-1000 IU vitamin D (some patients may require higher doses of vitamin D). - ?? clinical correlation is required to determine the need for continued therapy. LIMITATIONS: - ?Degenerative changes in the spine may artificially increase bone mass and make the reading unreliable L1,L2 excluded. FOLLOW-UP: Recommended in 2 years CC: ??Dr. Olya Hurley Revenue Inspector: [id number] Transcribe Date/Time: July ??2017 11:27A Dictated by [...] ??[employer] X-ray Absorptiometry DXA Model: A50 [employer] (S/N: [id number]) SITE SCANNED: Lumbar spine, left hip and [...] 11:33 AM EDT)ComponentValueRef RangeTest MethodAnalysis TimePerformed AtPathologist RuycvobpzNtltzbb8838 - 100 mg/dL07/04/2015 5:20 PM [facility] HEGLLNLYSRQQP614 - 25 mg/dL07/04/2015 5:20 PM [facility] LABORATORYCreatinine0.68(L) 0.70 - 1.40 mg/dL07/04/2015 5:20 PM [facility] LABORATORYSodium 856179 - 148 mmol/L07/04/2015 5:20 PM [facility] Potassium3.73.5 - 5.0 mmol/L07/04/2015 5:20 PM [facility] XSAUIDOJZPTivuoaka42100 - 110 mmol/L07/04/2015 5:20 PM [facility] EQNDWENGBCIZ11784 - 32 mmol/L07/04/2015 5:20 PM [facility] LABORATORYAnion Ngw977 - 15 mmol/L07/04/2015 5:20 PM [facility] LABORATORYCalcium9.78.5 - 10.5 mg/dL07/04/2015 5:20 PM [facility] LABORATORYeGFR->6004 5:20 PM [facility] LABORATORYeGFR-All Other Races>60.07/04/2015 5:20 PM [facility] LABORATORYComment: eGFR (Estimated GFR) Units [...] AM EDT Narrative Authorizing ProviderResult TypeResult StatusAbby Lester Hurley MDLABORATORYFinal ResultPerforming OrganizationAddressCity/State/ZIP CodePhone Number [facility] [address] [place] [address] from Last 3 Months or Most Recently Relevant to Health Maintenance Insurance Care Teams Team MemberRelationshipSpecialtyStart DateEnd Noel Farnsworth II, MD PCP - GeneralInternal Medicine09/15/12
--- OUTSIDE RECORDS SUMMARY | 2025-02-01 07:51 | XMS_ITS | Clinical Summary ---
Author Organization Sq[employer] Address [id number] [address] [place] [address] Care Team Providers Care Er Registrar Name Role Phone Noel Farnsworth MD Primary Care Provider [phone] Allergies Active AllergyReactionsCriticalityNoted DateCommentsChlorzoxazoneHives,Other (See Comments)12/26/2007GabapentinOther (See [...] capsule 5Active Active Problems ProblemNoted DateDiagnosed DateSubclinical inuvxcyjllpcum71/15/2025 Assessment & Plan (06/23/2024 11:06 AM EDT): Continue monitoring. We will obtain thyroid function studies prior to her next appointment Primary ozysmduewzlvxeqxgds27/09/2024 Assessment & Plan (06/23/2024 11:05 AM EDT): No compelling reasons to recommend parathyroidectomy. We will continue serum calcium monitoring Assessment & Plan (06/18/2023 10:48 AM EDT): No compelling reasons to recommend parathyroidectomy. We will continue serum calcium monitoring Vitamin D gjkzknbapa11/09/2024 Assessment & Plan (06/23/2024 11:06 AM EDT): 25 hydroxy vitamin-D levels at target on current regimen. 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 She also has primary hyperparathyroidism without compelling reasons to recommend parathyroidectomy. We will continue monitoring PTH and serum calcium levels Encounters DateTypeDepartmentCare UbnwWjddurwyxiu30/16/2025Orders Only [facility] Adult Endocrinology, A Department of [address] [address] Tala Borrero LPN Subclinical hypothyroidism (Primary Dx); Vitamin D vteshjbrrp30/15/2025Telephone [facility] Adult [facility]ocr[facility]ology, A Department of [address] [address] Tala Borrero LPN 12/21/2024Telephone [facility] Adult Endocrinology, A Department of [address] [address] Tala Borrero LPN from Last 3 Months Social History Tobacco UseTypesPacks/DayYears UsedDateSmoking Tobacco: FormerCigarettes Smokeless Tobacco: Never Tobacco Cessation:Counseling Given: Not Answered Comments:41 years ago Alcohol UseStandard Drinks/WeekCommentsYes0 (1 standard drink = 0.6 oz pure alcohol)maybe 2 a monthChildcareAnswerDate WeqizlpiEqwmkxbsmLdlnkum60/12/2019 EmploymentAnswerDate HzawtflyXklgxklaenRvaonjc34/12/2019Hunger ScreeningAnswer Date RecordedWithin the past 12 months we worried whether our food would run out before we got money to buy more.Never True06/23/2024Within the past 12 months the food we bought just didn't last and we didn't have money to get more.Never True06/23/2024CommentsUnknownSex and Gender InformationValueDate RecordedSex Assigned at BirthNot on fileLegal EnrXrvcun36/06/2015 12:06 PM EDT Gender IdentityNot on fileSexual OrientationNot on file Last Filed Vital Signs Vital SignReadingTime TakenCommentsBlood Phfjppuq359/7004 9:37 AM EDT Wlhgr8451/11/2023 10:08 AM EDTTemperature--Respiratory Zgpv485006/13/2022 10:08 AM EDTOxygen Saturation--Inhaled Oxygen Concentration--Hwoywb048.1 kg (249 lb 4.8 oz)06/23/2024 9:37 AM QOPOtlshw576.1 cm (5' 5 )06/13/2022 10:08 AM EDTBody Mass Index41.49006/13/2022 10:08 AM EDT Plan of Treatment DateTypeDepartmentCare Team (Latest Contact Info)Tzxevfsljco58/14/2026 9:30 AM EDTOffice Visit [facility] of [facility] [address] [facility] [address] [place] [address] Trung Richardson MD [address] [facility] [address] [place] [address] Health MaintenanceDue DateLast DoneCommentsDepression Uvwztfdvy12/14/1967 DTaP,Tdap and Td Vaccines (1 - Tdap)1973Zoster (Shingles) Vaccine (1 of 2) 2004RSV ( or age 60+ yrs) (1 - Risk 60-74 years 1-dose series) 2014Fall Risk Rqtowjkui74/14/2020COVID-19 Vaccine (2024- season) 512/09/2020, 06/30/2020, 06/07/2020Influenza Fgmebbk6411/09/2024 01/07/2012dult BMI Vsfrtgxmb38/15/00200306/23/2024Tobacco Bnnrtrdsm21/15/2026 06/23/2024 Medical Devices Not on file Insurance Care Teams Team MemberRelationshipSpecialtyStart DateEnd Date Noel Farnsworth MD [address] [facility] [address] [place] [address] PCP - GeneralInternal Medicine06/13/22
--- OUTSIDE RECORDS SUMMARY | 2025-02-01 07:51 | XMS_ITS | Encounter Summary ---
Author Organization [place] Address [address] [place] [address] Phone Care Team Providers Care Regional Flatbed Truck Driver Name Role Phone Noel Farnsworth MD Primary Care Provider [phone] Encounter Details DateTypeDepartmentCare Team (Latest Contact Info)Mlbplzrqyqk76/19/2025Scanned Document [facility] [address] [place] [address] Scanning, Generic Provider Social History Tobacco UseTypesPacks/DayYears UsedDateSmoking Tobacco: FormerCigarettesQuit: 1982Alcohol UseStandard Drinks/WeekCommentsYes0 (1 standard drink = 0.6 oz pure alcohol)socialCommentsUnknownSex and Gender InformationValueDate RecordedSex Assigned at BirthNot on fileLegal FzgUaogqs71/26/2022 8:34 PM EST Gender IdentityNot on fileSexual OrientationNot on filedocumented as of this encounter Plan of Treatment DateTypeDepartmentCare Team (Latest Contact Info)Weirbgwunzk76/23/2026 9:00 AM EDTOffice Visit [facility] [address] [facility] [address] [place] [address] Mily Prabhakar MD [address] [facility] [address] [place] [address] documented as of this encounter Procedures Procedure NamePriorityDate/TimeAssociated DiagnosisCommentsOUTSIDE LAB SCAN 01/27/2025 documented in this encounter Results * OUTSIDE LAB SCAN (01/27/2025) Narrative 01/27/2025 Ordered by an unspecified provider. Authorizing ProviderResult TypeResult StatusGeneric Provider ScanningOUTSIDE SCANFinal Result documented in this encounter Visit Diagnoses Not on filedocumented in this encounter Additional Health Concerns AssessmentNoted TimeA fall risk assessment has been completed for the patient 11/28/2023 9:37 AM EDTdocumented as of this encounter Care Teams Team MemberRelationshipSpecialtyStart DateEnd Date Noel Farnsworth MD [address] [facility] [address] [place] [address] PCP - General10/19/22documented as of this encounter
--- OUTSIDE RECORDS SUMMARY | 2025-02-01 07:51 | XMS_ITS | Encounter Summary ---
Author Organization [facility] Address [address] [place] [address] Phone Care Team Providers Care Vp Director Of Finance Name Role Phone Noel Farnsworth MD Primary Care Provider [phone] Encounter Details DateTypeDepartmentCare Team (Latest Contact Info)Nutejagtedf72/14/1956Orders Only [facility] [address] [place] [address] Scanning, Generic Provider Social History Tobacco UseTypesPacks/DayYears UsedDateSmoking Tobacco: Never Assessed CommentsUnknownSex and Gender InformationValueDate RecordedSex Assigned at Not on fileLegal UhcLspkrs44/26/2022 8:34 PM ESTGender IdentityNot on fileSexual OrientationNot on filedocumented as of this encounter Plan of Treatment DateTypeDepartmentCare Team (Latest Contact Info)Ahwoadmadgl28/23/2026 9:00 AM EDTOffice Visit [facility] [address] [facility] [address] [place] [address] Mily Prabhakar MD [address] [facility] [address], [address] [place] [address] NameTypePriorityAssociated DiagnosesOrder ScheduleOUTSIDE LAB SCANLabOrdered: 1954documented as of this encounter Visit Diagnoses Not on filedocumented in this encounter Care Teams Team MemberRelationshipSpecialtyStart DateEnd Date Noel Farnsworth MD [address] [facility] [address] [place] [address] [facility] - [facility]10/19/22documented as of this encounter
--- OUTSIDE RECORDS SUMMARY | 2025-02-01 07:51 | XMS_ITS | Encounter Summary ---
Author Organization [facility] Address [address] [place] [address] Phone Care Team Providers Care Windlasser Name Role Phone Noel Farnsworth MD Primary Care Provider [phone] Encounter Details DateTypeDepartmentCare Team (Latest Contact Info)Acpmmjiycdz17/14/1956Orders Only [facility] [address] [place] [place] [address] Scanning, Generic Provider Social History Tobacco UseTypesPacks/DayYears UsedDateSmoking Tobacco: Never Assessed CommentsUnknownSex and Gender InformationValueDate RecordedSex Assigned at Not on fileLegal IxzEhojug01/26/2022 8:34 PM ESTGender IdentityNot on fileSexual OrientationNot on filedocumented as of this encounter Plan of Treatment DateTypeDepartmentCare Team (Latest Contact Info)Thpakgewhsg99/23/2026 9:00 AM EDTOffice Visit [facility] [address] [facility] [address] [place] [address] Mily Prabhakar MD [address] [facility] [address], [address] [place] [address] NameTypePriorityAssociated DiagnosesOrder ScheduleOUTSIDE LAB SCANLabOrdered: 1954documented as of this encounter Visit Diagnoses Not on filedocumented in this encounter Care Teams Team MemberRelationshipSpecialtyStart DateEnd Date Noel Farnsworth MD [address] [facility] [[email or web address]] [address] [place] [address] [facility] - [facility]10/19/22documented as of this encounter
--- OUTSIDE RECORDS SUMMARY | 2025-02-01 07:51 | XMS_ITS | Encounter Summary ---
Author Organization [facility] Address [address] [place] [address] Care Team Providers Care Analytical Engineer Name Role Phone Noel Farnsworth MD Primary Care Provider [phone] Encounter Details DateTypeDepartmentCare Team (Latest Contact Info)Amolmoyugnx96/11/2025linisync Result Encounter [facility] External Department Unsolicited Provider, Generic External Data Social History Tobacco UseTypesPacks/DayYears UsedDateSmoking Tobacco: NeverSmokeless Tobacco: NeverAlcohol UseStandard Drinks/WeekCommentsNever0 (1 standard drink = 0.6 oz pure alcohol)caffeine: nonePHQ-2AnswerDate RecordedPatient Health Questionnaire- 2 Mlcoa635CommentsUnknownSex and Gender InformationValueDate RecordedSex Assigned at BirthNot on fileLegal BkeVbclfj38/15/2023 6:52 PM EDT Gender IdentityNot on fileSexual OrientationNot on filedocumented as of this encounter Plan of Treatment DateTypeDepartmentCare Team (Latest Contact Info)Omkfhdojjzx82/22/2026 10:00 AM ESTOffice Visit [facility] [address] [place] [address] Sherlyn Rucker, [address] [place], [place] [address] 07/01/2025 8:30 AM EDTOffice Visit [facility] [address] [place] [address] Brown, Lazaro A, DO [address] [place] [address] documented as of this encounter Procedures Procedure NamePriorityDate/TimeAssociated DiagnosisCommentsVITAMIN Q37Ekohnjb 01/19/2025 8:46 AM EST [facility] VITAMIN D 25 JEQpjskjv58/11/2025 8:46 AM EST [facility] LJJEDjyqhbl45/11/2025 8:46 AM EST [facility] WTUBCcsaqob15/11/2025 8:46 AM EST [facility] YEQPBKZVZtxfcgg46/11/2025 8:46 AM EST [facility] KMRECOSymqirr22/11/2025 8:46 AM EST [facility] CMP (CMP) (FOR REMOTE [facility] USE)Yzbgeya9201/19/2025 8:46 AM EST ALL LLMHWOSLZGHYoejovy72/11/2025 8:46 AM EST ALL JPDKRALVAYlzpmsj09/11/2025 8:46 AM EST ALL FOLIC MPAJJhnzusk13/11/2025 8:46 AM EST ALL CBC WITH AUTO XZYNHfhlhdm45/11/2025 8:46 AM EST documented in this encounter Results * (ABNORMAL) [facility] ZINC (01/19/2025 8:46 AM EST)ComponentValueRef RangeTest Method Analysis TimePerformed AtPathologist SignatureZINC BUSGW905(A)44 - 115 ug/dL TBHComment: This test was developed and its performance characteristics determined by [facility]. It has not been cleared or approved by the Food and Drug Administration. ?Detection Limit = 5 Performed at: ??BN - [facility] [place] [address], [place], [place] ??[id number] Pinion Polisher: Bernice Gant MD, Phone: ??[phone] Specimen (Source)Anatomical Location / LateralityCollection Method / Volume Collection TimeReceived Time01/19/2025 8:46 AM EST01/19/2025 8:48 AM EST Narrative [facility] - 01/24/2025 5:07 PM EST Authorizing ProviderResult TypeResult StatusGeneric External Data Provider CLINISYNCFinal ResultPerforming OrganizationAddWayne [facility] CodePhone Number CLINISYNC [facility] * [facility] COPPER (01/19/2025 8:46 AM EST)ComponentValueRef RangeTest MethodAnalysis TimePerformed AtPathologist SignatureCOPPER OSHCK0165 - 158 ug/dLTBHComment: This test was developed and its performance characteristics determined by [facility]. It has not been cleared or approved by the Food and Drug Administration. ?Detection Limit = 5 Performed at: ??[address] ??[id number] Pinion Polisher: Bernice Gant MD, Phone: ??[phone] Specimen (Source)Anatomical Location / LateralityCollection Method / Volume Collection TimeReceived Time01/19/2025 8:46 AM EST01/19/2025 8:48 AM EST Narrative [facility] - 01/21/2025 7:08 PM EST Authorizing ProviderResult TypeResult StatusGeneric External Data Provider CLINISYNCFinal ResultPerforming OrganizationAddWayne [facility] CodePhone Number CLINISYNC TB[facility] * VITAMIN B12 (01/19/2025 8:46 AM EST)ComponentValueRef RangeTest MethodAnalysis TimePerformed AtPathologist SignatureVITAMIN [id number] - 1245 pg/mLTBHComment: Performed at: ??[facility] [address], [place], [place] ??[id number] Pinion Polisher: Bharat Cain PhD, Phone: ??[phone] Specimen (Source)Anatomical Location / LateralityCollection Method / Volume Collection TimeReceived Time01/19/2025 8:46 AM EST01/19/2025 8:48 AM EST Narrative [facility] - 01/20/2025 4:07 AM EST Authorizing ProviderResult TypeResult StatusGeneric External Data ProviderLAB BLOOD ORDERABLESFinal ResultPerforming OrganizationAddressCity/State/ZIP Code Phone Number [facility] * ALL FOLIC ACID (01/19/2025 8:46 AM EST)ComponentValueRef RangeTest Method Analysis TimePerformed AtPathologist SkfoipixjCZQPCY77.008.60 - 58.90 ng/mLTBH Specimen (Source)Anatomical Location / LateralityCollection Method / Volume Collection TimeReceived Time01/19/2025 8:46 AM EST01/19/2025 8:48 AM EST Narrative [facility] - 01/19/2025 11:53 AM EST Authorizing ProviderResult TypeResult StatusGeneric External Data Provider CLINISYNCFinal ResultPerforming OrganizationAddressty/State/ZIP CodePhone Number [facility] * TBH VITAMIN D 25 [place] (01/19/2025 8:46 AM EST)ComponentValueRef RangeTest Method Analysis TimePerformed AtPathologist SignatureVITAMIN D64.2ng/mLTBHComment: <20 ng/mL Vit D deficient 20-<30 ng/mL Vit D insufficient 30-100 ng/mL ??Vit D sufficient >100 ng/mL Potential Toxicity Specimen (Source)Anatomical Location / LateralityCollection Method / Volume Collection TimeReceived Time01/19/2025 8:46 AM EST01/19/2025 8:48 AM EST Narrative [facility] - 01/19/2025 11:53 AM EST Authorizing ProviderResult TypeResult StatusGeneric External Data Provider CLINISYNCFinal ResultPerforming OrganizationAddressty/State/ZIP CodePhone Number [facility] * (ABNORMAL) [facility] FERRITIN (01/19/2025 8:46 AM EST)ComponentValueRef RangeTest MethodAnalysis TimePerformed AtPathologist LpernkeruRWAZHJOL481.0(H)8.0 - 252.0 ng/mLTBHSpecimen (Source)Anatomical Location / LateralityCollection Method / VolumeCollection TimeReceived Time01/19/2025 8:46 AM EST01/19/2025 8:48 AM EST Narrative CLINISYNC - 01/19/2025 11:53 AM EST Authorizing ProviderResult TypeResult StatusGeneric External Data Provider CLINISYNCFinal ResultPerforming OrganizationAddBerwick Hospital Centerty/State/ZIP CodePhone Number [facility] * (ABNORMAL) [facility] TIBC (01/19/2025 8:46 AM EST)ComponentValueRef Range Test MethodAnalysis TimePerformed AtPathologist SignatureTBH IRON49.0(L)50.0 - 170.0 ug/dLTBHTBH TOTAL IRON BINDING IRKVEMUX695.0250.0 - 450.0 ug/dLTBHTBH PERCENT IRON NEKFHKMDVI71.4%TBHSpecimen (Source)Anatomical Location / LateralityCollection Method / VolumeCollection TimeReceived Time01/19/2025 8:46 AM EST01/19/2025 8:48 AM EST Narrative CLINISYLA - 01/19/2025 10:02 AM EST Authorizing ProviderResult TypeResult StatusGeneric External Data Provider CLINISYNCFinal ResultPerforming OrganizationAddressty/State/ZIP CodePhone Number [facility] * ALL MAGNESIUM (01/19/2025 8:46 AM EST)ComponentValueRef RangeTest Method Analysis TimePerformed AtPathologist SignatureMAGNESIUM2.31.8 - 2.4 mg/dLTBH Specimen (Source)Anatomical Location / LateralityCollection Method / Volume Collection TimeReceived Time01/19/2025 8:46 AM EST01/19/2025 8:48 AM EST Narrative [facility]IN[facility]YNC - 01/19/2025 9:39 AM EST Authorizing ProviderResult TypeResult StatusGeneric External Data Provider CLINISYNCMount Saint Mary'S Hospitalal ResultPerforming OrganizationAddBerwick Hospital Centerty/State/ZIP CodePhone Number [facility] * ALL PHOSPHOROUS (01/19/2025 8:46 AM EST)ComponentValueRef RangeTest Method Analysis TimePerformed AtPathologist SignaturePHOSPHORUS2.72.6 - 4.7 mg/dLTBH Specimen (Source)Anatomical Location / LateralityCollection Method / Volume Collection TimeReceived Time01/19/2025 8:46 AM EST01/19/2025 8:48 AM EST Narrative CLINISYNC - 01/19/2025 9:39 AM EST Authorizing ProviderResult TypeResult StatusGeneric External Data Provider CLINISYNCFinal ResultPerforming OrganizationAddressCity/State/ZIP CodePhone Number [facility] * (ABNORMAL) [facility] CMP (CMP) (FOR REMOTE [facility] USE) (01/19/2025 8:46 AM EST) ComponentValueRef RangeTest MethodAnalysis TimePerformed AtPathologist UessrvecrDMJNJG396280 - 145 mmol/LTBHPOTASSIUM4.13.5 - 5.1 mmol/LTBHCHLORIDE 63231 - 107 mmol/LTBHCARBON IGOVIQT45.421.0 - 32.0 mmol/LTBHANION GAP11.7TBH QLTGZWW1266 - 106 mg/dLTBHBLOOD UREA QCXDMZPV73.0(H)7.0 - 18.0 mg/dLTBH CREATININE0.870.55 - 1.02 mg/dLTBHTBH EGFR-AF PANAMANIAN>60>=60 mL/min/1.73m 2 TBHTBH EGFR-NON AF PANAMANIAN>60>=60 mL/min/1.73m 2TBHBUN CREATININE RATIO32.2 TBHCALCIUM9.98.5 - 10.1 mg/dLTBHBILIRUBIN TOTAL0.90.2 - 1.0 mg/dLTBHASPARTATE AMINO YWWEQQKPRXP9304 - 37 U/LTBHALANINE UXHVXBEYMUXXJGYE3402 - 59 U/LTBH ALKALINE GIDYRTZTXPC9749 - 116 U/LTBHTOTAL PROTEIN6.66.4 - 8.2 g/dLTBHALBUMIN LEVEL3.2(L)3.4 - 5.0 g/dLTBHGLOBULIN3.4g/dLTBHALBUMIN GLOBULIN RATIO0.9TBH Specimen (Source)Anatomical Location / LateralityCollection Method / Volume Collection TimeReceived Time01/19/2025 8:46 AM EST01/19/2025 8:48 AM EST Narrative CLINISYNC - 01/19/2025 9:39 AM EST Authorizing ProviderResult TypeResult StatusGeneric External Data Provider CLINISYNCFinal ResultPerforming OrganizationAddressCity/State/ZIP CodePhone Number [facility] * (ABNORMAL) ALL CBC WITH AUTO DIFF (01/19/2025 8:46 AM EST)ComponentValueRef RangeTest MethodAnalysis TimePerformed AtPathologist SignatureTBH WBC6.14.0 - 11.0 10 3/uLTBHTBH RBC3.90(L)4.20 - 5.40 10 6/uLTBHTBH HGB11.2(L)12.0 - 16.0 g/dLTBHTBH HCT36.036.0 - 48.0 %TBHTBH MCV92.381.0 - 99.0 fLTBHTBH MCH28.726.7 - 34.0 pgTBHTBH MCHC31.129.9 - 35.2 g/dLTBHTBH RDW14.011.0 - 15.0 %TBHTBH PLT 130(L)150 - 450 10 3/uLTBHTBH MPV10.79.5 - 13.5 fLTBHNEUTROPHILS PERCENT AUTO 72.343.0 - 75.0 %TBHLYMPHOCYTES PERCENT AUTO18.9(L)20.5 - 60.0 %TBHMONOCYTES PERCENT AUTO6.41.7 - 12.0 %TBHTBH EO %1.50.9 - 7.0 %TBHBASOPHILS PERCENT AUTO 0.70.2 - 2.0 %TBHIMMATURE GRANULOCYTES PCT AUTO0.20.0 - 0.5 %TBHNEUTROPHILS ABSOLUTE AUTO4.41.4 - 6.5 10 3/uLTBHLYMPHOCYTES ABSOLUTE AUTO1.21.2 - 3.8 10 3/uLTBHMONOCYTES ABSOLUTE AUTO0.40.3 - 0.8 10 3/uLTBHTBH EO #0.10.0 - 0.7 10 3/uLTBHBASOPHILS ABSOLUTE AUTO0.00.0 - 0.1 10 3/uLTBHIMMATURE GRANULOCYTES ABS AUTO0.010.00 - 0.03 10 3/uLTBHSpecimen (Source)Anatomical Location / LateralityCollection Method / VolumeCollection TimeReceived Time01/19/2025 8:46 AM EST01/19/2025 8:48 AM EST Narrative CLIN[facility]YNC - 01/19/2025 9:06 AM EST Authorizing ProviderResult TypeResult StatusGeneric External Data Provider CLINISYNCFinal ResultPerforming OrganizationAddressCity/State/ZIP CodePhone Number [facility]NC [facility] documented in this encounter Visit Diagnoses Not on filedocumented in this encounter Additional Health Concerns AssessmentNoted TimePHQ-9 Depression Total Score: 9:00 AM EDT documented as of this encounter Care Teams Team MemberRelationshipSpecialtyStart DateEnd Date Noel Farnsworth MD [address] [facility] 110 [place] [address] PCP - GeneralInternal Medicine08/14/22documented as of this encounter
--- OUTSIDE RECORDS SUMMARY | 2025-02-01 07:51 | XMS_ITS | Clinical Summary ---
Author Organization [facility] Address [address] [place] [address] Phone Care Team Providers Care Wage Hand Name Role Phone Noel Farnsworth MD Primary Care Provider [phone] Allergies Active AllergyReactionsCriticalityNoted DateCommentsChlorzoxazoneHivesMedium 12/27/2022 Medications MedicationSigDispense [...] by mouth. As directed by Agnes coumadin utlfcm7108/24/2020ctive zinc gluconate 50 mg tablet Take 1 [...] 5Active Active Problems ProblemNoted DateDiagnosed DateIron deficiency xvroye1411/28/2023MI 40.0-44.9, adult05/13/2023Former lycpli8205/13/2023ellulitis of right lower extremity 12/27/2022Edema of both legs12/27/2022Essential rmrulfnuzvjv83/19/2023ermanent atrial fibrillation with RVR12730Orkzdyxbgkm45/19/2023Sleep apnea12/27/2022 Hderkmqhtchtrc99/19/2023 Resolved Problems ProblemNoted DateDiagnosed DateResolved DateHigh risk medication use12/27/2022 11/28/2023 Encounters DateTypeDepartmentCare FgbmTittgdcpphe55/19/2025Scanned Document [facility] [address] [place] [address] Scanning, Generic Provider from Last 3 Months Immunizations ImmunizationAdministration DatesNext DuePfizer Purple Cap ZHYF-IbV-621/07/2021, 06/30/2020,06/07/2020 Family History Medical HistoryRelationNameCommentsHeart attackBrotherThroat cancerBrothercva Fatherparkinson's diseaseFathercvaMotherRelationNameStatusCommentsBrotherFather Mother Social History Tobacco UseTypesPacks/DayYears UsedDateSmoking Tobacco: FormerCigarettesQuit: 1981 Tobacco Cessation:Counseling Given: Not Answered Alcohol UseStandard Drinks/WeekCommentsYes0 (1 standard drink = 0.6 oz pure alcohol)socialCommentsUnknownSex and Gender InformationValueDate RecordedSex Assigned at BirthNot on fileLegal DkpEqycxl52/26/2022 8:34 PM EST Gender IdentityNot on fileSexual OrientationNot on file Last Filed Vital Signs Vital SignReadingTime TakenCommentsBlood Mbmosmyx889/68008/27/2024 9:06 AM EDT Yzxut6223/19/2025 9:06 AM EDTTemperature--Respiratory Rate--Oxygen Saturation-- Inhaled Oxygen Concentration--Gbckre134 kg (242 lb)08/27/2024 9:06 AM EDTHeight 165.1 cm (5' 5 )08/27/2024 9:06 AM EDTBody Mass Index40.27008/27/2024 9:06 AM EDT Plan of Treatment DateTypeDepartmentCare Team (Latest Contact Info)Pluilfkpiwo87/23/2026 9:00 AM EDTOffice Visit [facility] [address] [facility] [address] [place] [address] Mily Prabhakar MD [address] [facility], [address] [place] [address] Health MaintenanceDue DateLast DoneCommentsCT Rknqhawclokq58/14/1955FIT-DNA (Cologuard)1954FIT1954Lipid Panel1954Medicare Annual Wellness Visit (AWV)1955 8903Qgjqtkmntiuly07/14/1955MMR Vaccines (1 of 1 - Standard series)09/22/1955Diabetes Ysgqbcpdp82/14/1973Hepatitis C Rljxjvrxu87/14/1973 Pneumococcal Vaccine (1 of 2 - PCV)1973DTaP/Tdap/Td Vaccines (1 - Tdap) 1976RSV High Risk: (Elderly (60+) or Population) (1 - Risk 50-74 years 1-dose series)2004Zoster Vaccines (1 of 2)2004Influenza Vaccine (#1)COVID-19 Vaccine ( season)2024 02/14/2021, 06/30/2020, 06/07/20205883Yceprdpkb90/09/202601/11/2024, 03/19/2024, 01/17/2022, Additional history existsBone Density Scan/, 01/17/2022, 07/15/2017TSH Level04//9411Hjumscxsuce51/20/2031 03/30/2020, 03/30/2020olorectal Cancer Ydpalpdnj78/20/2031Irritable Bowel UmslzpywZoejuwtzsvjx22/20/2021HIB VaccinesAged OutNo longer eligible based on patient's [...] age to complete this topic Procedures Procedure NamePriorityDate/TimeAssociated DiagnosisCommentsOUTSIDE LAB SCAN 01/27/2025 from Last 3 Months Results * OUTSIDE LAB SCAN (01/27/2025) Narrative 01/27/2025 Ordered by an unspecified provider. Authorizing ProviderResult TypeResult StatusGeneric Provider ScanningOUTSIDE SCANFinal Result from Last 3 Months Insurance Care Teams Team MemberRelationshipSpecialtyStart DateEnd Noel Farnsworth MD [address] [facility] 110 [place] [address] [facility] - [facility]10/19/22
--- OUTSIDE RECORDS SUMMARY | 2025-02-01 07:51 | XMS_ITS | Clinical Summary ---
Author Organization [facility] Address [address] [place] [address] Care Team Providers Care Messaging Architect Name Role Phone Noel Farnsworth MD Primary Care Provider [phone] Allergies Active AllergyReactionsCriticalityNoted DateCommentsChlorzoxazoneHives,Unknown 12/26/20075610ZzvrurcqhkZgkdmna61/01/2021 Medications MedicationSigDispense QuantityRefillsLast FilledStart DateEnd DateStatus Ascorbic [...] time each day at the same timeActive Garfield-3 Fatty Acids (Fish Oil) 1200 MG capsule [...] tablet ctive cholecalciferol (Vitamin D-3) 1.25 MG (24811 UT) capsule Indications:Vitamin D deficiencyTake one capsule daily 100 capsule ctive ferrous sulfate 325 (65 Fe) MG tablet Indications:Bariatric surgery statusTake 1 tablet (325 mg) by mouth in the morning and 1 tablet (325 mg) before bedtime. 60 tablet 11004/16/662976/6Active warfarin (Coumadin) 2.5 MG tablet 07/31/2024tive Estrace 0.1 MG/GM vaginal cream See Instructions, 42.5 gm, Refill(s) 6, Apply pea-sized amount around urethra and inside vagina 3 times per week at night for one month then 2 times per week after for maintenance., [facility]/pharmacy #[id number] Vonoprazan Fumarate (Voquezna) 20 MG tablet Indications:Erosive esophagitisTake 20 mg by mouth Daily 100 tablet 5Active Additional Information Patient taking differently:20 mg Oral Daily,(No times of day reported), Reported on 12/31/2024 Active Problems ProblemNoted DateDiagnosed DateAbnormal flvpefipee29/29/2025UTI symptoms 10/06/2024Subclinical eubqzhkfuuglet74/15/2025Iron deficiency rujbxf5211/28/2023 Former uevsuz8005/13/20235373Whrzbvpoujjwxr40/19/2023Edema of both legs12/27/2022High risk medication use12/27/20220989Wwbtcizawyb43/19/2023cquired pes planus of left foot12/05/2022trophy of birprq2512/05/2022Elevated AST (SGOT)12/05/2022 Xkujhdtnffcq92/27/2023Left Achilles qeggkuwbda57/27/2023Morbid wdsjsjr8312/05/2022 Pes aaizsv9912/05/2022iriformis /27/2023lantar fasciitis, bilateral 12/05/2022Other chronic ogpoxinej26/27/2023Urge incontinence of urine12/05/2022 Mitral valve /17/2023-fib10/25/2022ERD (gastroesophageal reflux disease)10/25/2022Right anterior shoulder pain08/14/2022ervical paraspinal muscle spasm08/14/2022Right cervical zntqmosgjoamh38/06/2023Seasonal allergies 10/12/2020PRD (laryngopharyngeal reflux disease)05/04/2020ochlear hydrops of right ear03/02/2020Left-sided tndxbwus50/28/2020Sensorineural hearing loss (SNHL) of left ear with unrestricted hearing of right ear01/06/2020Abnormal intestinal nbhrhyotjo06/24/2020Senile opdeyahcyxel69/10/2020 Overview (12/05/2022): Last Assessment & Plan: Patient will continue adequate calcium and vitamin-D supplementation. We will obtain a follow-up bone mineraldensity in January 2023. Fall precautions and the importance of exercise discussed with patient Monoarticular fczmkrguv26/26/2020Primary osteoarthritis of right knee12/01/2018 Gnmcotdjbu21/13/2019Elevated levels of transaminase & lactic acid dehydrogenase 09/03/20178200Ajewgfnlboehm10/26/7318Gdzhpckrdkavyqfz76/26/2018Asthmatic bronchitis 08/02/2017Internal derangement of left ldkaheuo54/01/4133Xxovrhn95/28/2016 History of gastric eujqrf7807/25/2015Obstructive sleep apnea bzdyatml91/16/2016 Height loss07/04/2015H/O wruyxwbxphvuz13/25/2016Fibrocystic breast changes 05/27/2015Lumbar jtflfytkjqzfo88/27/2015Chronic venous tamqutudshyvq15/26/2015 Non-toxic multinodular agfbni5501/03/2015Vitamin B-complex wpuvlaizji79/26/2015 Cramp of limb05/03/2008Disorder of bone and nxoowrldy75/23/2009Intestinal disaccharidase deficiencies and disaccharide xjbwbajzlxdbq76/23/2009Lumbago 05/03/20082649Ojheoaoroealwojdoac52/23/2009 Overview (12/05/2022): Last Assessment & Plan: 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 She also has primary hyperparathyroidism without compelling reasons to recommend parathyroidectomy. We will continue monitoring PTH and serum calcium levels Vitamin D yfevypqkvk01/23/2009cquired trigger mpxoiu5512/26/2007Carpal tunnel dpwcahky89/17/2008 Resolved Problems ProblemNoted DateDiagnosed DateResolved DateBMI 40.0-44.9, adult07/07/2024 10/06/2024MI 39.0-39.9,adult05/12//ellulitis of right lower houubzfoz46Edema of lower gfiqcbhll66nemia Encounters DateTypeDepartmentCare QnyvWmwxeseujge06/11/2025linisync Result Encounter [facility] External Department Unsolicited Provider, Generic External Data 12/31/2024 9:15 AM EDTOffice Visit [facility] [address] [place] [id number] Lazaro Borrero DO Right anterior shoulder pain12/31/2024amboo flowsheet [facility] [address] [place] [address] [place] [address] Lazaro Borrero DO 12/31/20249907Xffksa06/10/2025Refill [facility] [address] [facility] [address] [place] [address] Noel Farnsworth MD Erosive zsfijzyscjb39/09/2025Telephone [facility] [address] [facility] [address] [place] [address] Noel Farnsworth MD 12/07/2024bstract [facility] [address] [facility] [address] [place] [address] Noel Farnsworth MD 12/03/2024bstract [facility] [address] [facility] [address] [place] [address] Noel Farnsworth MD 12/03/2024bstract [facility] [place] [facility] [address] [facility] [address] [place] [address] Noel Farnsworth MD 5Abstract [facility] [place] [facility] [address] [facility] [address] [place] [address] Noel Farnsworth MD from Last 3 Months Immunizations ImmunizationAdministration DatesNext DueInfluenza, seasonal, injectable, preservative free01/07/2012 Family History Medical HistoryRelationNameCommentsTongue cancerBrotherDiabetesFatherMultiple sclerosisFatherParkinsonismFatherStrokeFatherColon cancerMaternal CousinDiabetes MotherHeart diseaseMotherHeart failureMotherStrokeMotherMelanomaNeg HxRelation NameStatusCommentsBrotherFatherDeceasedMaternal CousinAliveMotherDeceased Social History Tobacco UseTypesPacks/DayYears UsedDateSmoking Tobacco: NeverSmokeless Tobacco: Never Tobacco Cessation:Counseling Given: Yes Alcohol UseStandard Drinks/WeekCommentsNever0 (1 standard drink = 0.6 oz pure alcohol)caffeine: nonePHQ-2AnswerDate RecordedPatient Health Questionnaire-2 Uvvqt804CommentsUnknownSex and Gender InformationValueDate RecordedSex Assigned at BirthNot on fileLegal IhbKdawkh82/15/2023 6:52 PM EDT Gender IdentityNot on fileSexual OrientationNot on file Last Filed Vital Signs Vital SignReadingTime TakenCommentsBlood Wtszyrfb985/72010/06/2024 8:41 AM EDT Tijha727810/06/2024 8:41 AM JNJDjlndowphro20.7 ??C (98.1 ??F)10/06/2024 8:41 AM EDTRespiratory Nczh493710/06/2024 8:41 AM EDTOxygen Jwacyhocva01%10/06/2024 8:41 AM EDTInhaled Oxygen Concentration--Qmjqjj645 kg (232 lb)12/31/2024 9:35 AM EDT Qcflpt539.6 cm (5' 4 )12/31/2024 9:35 AM EDTBody Mass Index39.8212/31/2024 9:35 AM EDT Plan of Treatment DateTypeDepartmentCare Team (Latest Contact Info)Vsagwplxkak20/22/2026 10:00 AM ESTOffice Visit [facility] [address] [place] [address] Sherlyn Rucker, DO [address] [place] [address] 07/01/2025 8:30 AM EDTOffice Visit [facility] [address] [place] [address] Lazaro Borrero, DO [address] [place] [address] Health MaintenanceDue DateLast DoneCommentsCT Clsegkbvoyzu97/14/1955FIT-DNA 1955FIT1955FOBT1955 7008Bimchottyqqrr63/14/1955Pneumococcal Vaccine: 65+ Years (1 of 2 - PCV)1973COVID-19 Vaccine ( season) /09/2020, 06/30/2020, 06/07/2020Influenza Vaccine (#1)2024 01/07/20127256Ljadbvcdp60/09/202601/11/2024, 02/20/2023, 02/20/2023, Additional history existsMedicare Annual Wellness (AWV)/, 10/29/2023, 02/15/2023, Additional history crlnlnKpzdawfbrco17/08/203507/10/2024, 03/30/2020 Colorectal Cancer Cokocxpdl41/08/2035 Procedures Procedure NamePriorityDate/TimeAssociated DiagnosisCommentsCCF ZINCRoutine 01/19/2025 8:46 AM EST CCF NLRBWKPgzreda38/11/2025 8:46 AM EST VITAMIN G56Ttyrjrz02/11/2025 8:46 AM EST ALL FOLIC GHMATbhhhty43/11/2025 8:46 AM EST TBH VITAMIN D 25 VKKpgtppq45/11/2025 8:46 AM EST CCF FMATZIFGItrxnbp94/11/2025 8:46 AM EST [facility] IRON AND XWSMJhfzicy25/11/2025 8:46 AM EST ALL CKWFZQXQJJypuawn71/11/2025 8:46 AM EST ALL RKTWPBELJTGRkvbcac77/11/2025 8:46 AM EST [facility] CMP (CMP) (FOR REMOTE [facility] USE)Yaoncqk8101/19/2025 8:46 AM EST ALL CBC WITH AUTO QMPQLwxovtb46/11/2025 8:46 AM EST RI ARTHROCENTESIS ASPIR&/INJ MAJOR JT/BURSA W/GPOiuynyj81/23/2025 9:39 AM EDT Right anterior shoulder pain RI ARTHROCENTESIS ASPIR&/INJ MAJOR JT/BURSA W/RISkdjjoi89/23/2025 9:39 AM EDT Right anterior shoulder pain HM XJFKEFYMOUHLhbumck58/08/2025 BI MAMMOGRAM SCREENING TOMOSYNTHESIS VKFHQSZYMHqwrbgd46/09/2025 3:41 PM EST Encounter for mammogram to establish baseline mammogram from Last 3 Months or Most Recently Relevant to Health Maintenance Results * VITAMIN B12 (01/19/2025 8:46 AM EST)ComponentValueRef RangeTest MethodAnalysis TimePerformed AtPathologist SignatureVITAMIN [id number] - 1245 pg/mLTBHComment: Performed at: ?? - [facility] [address] ??[id number] Silo Worker: Bharat Cain PhD, Phone: ??[phone] Specimen (Source)Anatomical Location / LateralityCollection Method / Volume Collection TimeReceived Time01/19/2025 8:46 AM EST01/19/2025 8:48 AM EST Narrative [facility] - 01/20/2025 4:07 AM EST Authorizing ProviderResult TypeResult StatusGeneric External Data ProviderLAB BLOOD ORDERABLESFinal ResultPerforming OrganizationAddressCity/State/ZIP Code Phone Number [facility] * [facility]H VITAMIN D 25 [place] (01/19/2025 [...] Data Provider CLINISYNCFinal ResultPerforming OrganizationAddressty/State/ZIP CodePhone Number [facility] * (ABNORMAL) [facility] AND TIBC (01/19/2025 8:46 AM EST)ComponentValueRef Range Test MethodAnalysis TimePerformed AtPathologist SignatureTBH IRON49.0(L)50.0 - 170.0 ug/dLTBHTBH TOTAL IRON BINDING TFKRGXQV403.0250.0 - 450.0 ug/dLTBHTBH PERCENT IRON AAVRETOQNP77.4%TBHSpecimen (Source)Anatomical Location / LateralityCollection Method / VolumeCollection TimeReceived Time01/19/2025 8:46 AM EST01/19/2025 8:48 AM EST Narrative [facility] - 01/19/2025 10:02 AM EST Authorizing ProviderResult TypeResult StatusGeneric External Data Provider CLINISYNCFinal ResultPerforming OrganizationAddressCity/State/ZIP CodePhone Number [facility] * (ABNORMAL) [facility] ZINC (01/19/2025 8:46 AM EST)ComponentValueRef RangeTest Method Analysis TimePerformed AtPathologist SignatureZINC ZDPFI528(A)44 - 115 ug/dL TBHComment: This test was developed and its performance characteristics determined by [facility]. It has not been cleared or approved by the Food and Drug Administration. ?Detection Limit = 5 Performed at: ?? - [facility] ??[id number] Silo Worker: Bernice Gant MD, Phone: ??[phone] Specimen (Source)Anatomical Location / LateralityCollection Method / Volume Collection TimeReceived Time01/19/2025 8:46 AM EST01/19/2025 8:48 AM EST Narrative [facility] - 01/24/2025 5:07 PM EST Authorizing ProviderResult TypeResult StatusGeneric External Data Provider CLINISYNCFinal ResultPerforming OrganizationAddEinstein [facility]phiaty/State/[facility] CodePhone Number [facility]NC [facility] * (ABNORMAL) [facility] FERRITIN (01/19/2025 8:46 AM EST)ComponentValueRef RangeTest MethodAnalysis TimePerformed AtPathologist HqptxgbqjBFVNBKLI783.0(H)8.0 - 252.0 ng/mLTBHSpecimen (Source)Anatomical Location / LateralityCollection Method / VolumeCollection TimeReceived Time01/19/2025 8:46 AM EST01/19/2025 8:48 AM EST Narrative [facility] - 01/19/2025 11:53 AM EST Authorizing ProviderResult TypeResult StatusGeneric External Data Provider CLINISYNCFinal ResultPerforming OrganizationAddressty/State/ZIP CodePhone Number [facility] * [facility] COPPER (01/19/2025 8:46 AM EST)ComponentValueRef RangeTest MethodAnalysis TimePerformed AtPathologist SignatureCOPPER XTEHM9993 - 158 ug/dLTBHComment: This test was developed and its performance characteristics determined by [facility]. It has not been cleared or approved by the Food and Drug Administration. ?Detection Limit = 5 Performed at: ?? - [facility] ??[id number] Silo Worker: Bernice Gant MD, Phone: ??[phone] Specimen (Source)Anatomical Location / LateralityCollection Method / Volume Collection TimeReceived Time01/19/2025 8:46 AM EST01/19/2025 8:48 AM EST Narrative [facility] - 01/21/2025 7:08 PM EST Authorizing ProviderResult TypeResult StatusGeneric External Data Provider CLINISYNCFinal ResultPerforming OrganizationAddressCity/State/ZIP CodePhone Number [facility] * (ABNORMAL) [facility] CMP (CMP) (FOR REMOTE [facility] USE) (01/19/2025 8:46 AM EST) ComponentValueRef RangeTest MethodAnalysis TimePerformed AtPathologist HsvazxydlPNLAML202329 - 145 mmol/LTBHPOTASSIUM4.13.5 - 5.1 mmol/LTBHCHLORIDE 22844 - 107 mmol/LTBHCARBON JLTEQQC20.421.0 - 32.0 mmol/LTBHANION GAP11.7TBH GCTOLRR2299 - 106 mg/dLTBHBLOOD UREA PXSARHQH13.0(H)7.0 - 18.0 mg/dLTBH CREATININE0.870.55 - 1.02 mg/dLTBHTBH EGFR-AF BRAZILIAN>60>=60 mL/min/1.73m 2 TBHTBH EGFR-NON AF BRAZILIAN>60>=60 mL/min/1.73m 2TBHBUN CREATININE RATIO32.2 TBHCALCIUM9.98.5 - 10.1 mg/dLTBHBILIRUBIN TOTAL0.90.2 - 1.0 mg/dLTBHASPARTATE AMINO DABPSXSNGHG2814 - 37 U/LTBHALANINE NPYFSGRKYGRQRPMN0775 - 59 U/LTBH ALKALINE ZAZONXBMPFG4709 - 116 U/LTBHTOTAL PROTEIN6.66.4 - 8.2 g/dLTBHALBUMIN LEVEL3.2(L)3.4 - 5.0 g/dLTBHGLOBULIN3.4g/dLTBHALBUMIN GLOBULIN RATIO0.9TBH Specimen (Source)Anatomical Location / LateralityCollection Method / Volume Collection TimeReceived Time01/19/2025 8:46 AM EST01/19/2025 8:48 AM EST Narrative [facility] - 01/19/2025 9:39 AM EST Authorizing ProviderResult TypeResult StatusGeneric External Data Provider CLINISYNCFinal ResultPerforming OrganizationAddressty/State/ZIP CodePhone Number [facility] * ALL PHOSPHOROUS (01/19/2025 8:46 AM EST)ComponentValueRef RangeTest Method Analysis TimePerformed AtPathologist SignaturePHOSPHORUS2.72.6 - 4.7 mg/dLTBH Specimen (Source)Anatomical Location / LateralityCollection Method / Volume Collection TimeReceived Time01/19/2025 8:46 AM EST01/19/2025 8:48 AM EST Narrative CLINISYIL - 01/19/2025 9:39 AM EST Authorizing ProviderResult TypeResult StatusGeneric External Data Provider CLINISYNCFinal ResultPerforming OrganizationAddEn[facility]/State/ZIP CodePhone Number [facility] * ALL MAGNESIUM (01/19/2025 8:46 AM EST)ComponentValueRef RangeTest Method Analysis TimePerformed AtPathologist SignatureMAGNESIUM2.31.8 - 2.4 mg/dLTBH Specimen (Source)Anatomical Location / LateralityCollection Method / Volume Collection TimeReceived Time01/19/2025 8:46 AM EST01/19/2025 8:48 AM EST Narrative CLIN[facility]YNC - 01/19/2025 9:39 AM EST Authorizing ProviderResult TypeResult StatusGeneric External Data Provider CLINISYNCFinal ResultPerforming OrganizationAddEn[facility]/State/ZIP CodePhone Number [facility] * ALL FOLIC ACID (01/19/2025 8:46 AM EST)ComponentValueRef RangeTest Method Analysis TimePerformed AtPathologist VgupdoagbHPXZEW86.008.60 - 58.90 ng/mLTBH Specimen (Source)Anatomical Location / LateralityCollection Method / Volume Collection TimeReceived Time01/19/2025 8:46 AM EST01/19/2025 8:48 AM EST Narrative [facility] - 01/19/2025 11:53 AM EST Authorizing ProviderResult TypeResult StatusGeneric External Data Provider CLINISYNCFinal ResultPerforming OrganizationAddressCity/State/ZIP CodePhone Number [facility] * (ABNORMAL) ALL CBC WITH AUTO DIFF [...] Data Provider CLINISYNCFinal ResultPerforming OrganizationAddressCity/State/ZIP CodePhone Number [facility] * RI ARTHROCENTESIS ASPIR&/INJ MAJOR JT/BURSA W/US (12/31/2024 9:39 AM EDT) Narrative [facility] - 12/31/2024 9:39 AM EDT [facility] Barron, [facility] 01/01/2025 3:05 PM L Inj/Asp: R subacromial bursa on 12/31/2024 9:39 AM Indications: pain Details: 25 G needle, ultrasound-guided Medications: 1 mL betamethasone acetate-betamethasone sodium phosphate 6 (3-3) MG/ML Consent was given by the patient. Authorizing ProviderResult TypeResult StatusLazaro [facility]/BEDSIDE ORDERABLESFinal Result * RI ARTHROCENTESIS ASPIR&/INJ MAJOR JT/BURSA W/US (12/31/2024 9:39 AM EDT) Narrative [facility] Bar[facility], [facility] - 12/31/2024 9:39 AM EDT [facility] Barron, [facility] 01/01/2025 3:05 PM L Inj/Asp: R glenohumeral on 12/31/2024 9:39 AM Indications: pain Details: 25 G needle, ultrasound-guided Medications: 1 mL betamethasone acetate-betamethasone sodium phosphate 6 (3-3) MG/ML Consent was given by the patient. Authorizing ProviderResult TypeResult StatusLazaro [facility]/BEDSIDE ORDERABLESFinal Result * (ABNORMAL) Hm Colonoscopy (09/15/2024)Anatomical RegionLateralityModalityOther Specimen (Source)Anatomical Location / LateralityCollection Method / Volume Collection TimeReceived Time09/15/2024 Narrative 09/16/2024 10:13 AM EDT Polypectomy. See scanned document for full report Authorizing ProviderResult TypeResult StatusMarla Batista Hemeklsey PAHEAL MAINTENANCE Final Result * Bilateral screening mammogram [...] Rodriguez M.D.03/19/2024 3:47 PM ? Dictation Location: S01 ? Transcribed By: ? PWS ?03/19/24 1547 ? Dictated By: ?Erik Rodriguez MD ?03/19/24 1541 ? Signed By: <Electronically signed by Erik Rodriguez MD in OV> ? 03/19/24 1547 Narrative 03/19/2024 3:49 PM EST [facility] ?[facility] [place] ?[address] ? [place] [address] ? Mammography Report ? Signed ? Patient: Marla Figueredo A ?MR#: [id number] ?? 6 ? : 1955 ?Acct:[id number] ? Age/Sex: 68 / F ?ADM Date: 03/19/24 ? Loc: [place] ?Room: ?Type: REG CLI ?? Attending Dr: Sherlyn Rucker DO ?? Copies to: Noel Farnsworth II, MD ?? Sherlyn Rucker, DO ? Ordering Provider: Sherlyn Rucker, DO ?? Date of Service: 03/19/24 ?? [...] ?? Procedure Note Radiology, Radiologist, - 03/19/2024 [facility] [place] [address] [place] [address] Mammography Report Signed Patient: [facility] Fig[facility]redo [facility]#: [id number] 6 : 5Acct:[id number] Age/Sex: 68 / FADM Date: 03/19/24 Loc: [place] Room:Type: REG CLI Attending Dr: Sherlyn Rucker [...] Erik Rodriguez M.D.03/19/2024 3:47 PM Dictation Location: [facility] Transcribed By: [facility] 03/19/24 1547 Dictated By: Erik Rodriguez MD 03/19/24 1541 Signed By: <Electronically signed by Erik Rodriguez MD in OV> 03/19/24 1547 Authorizing ProviderResult TypeResult StatusSherlyn Rucker DOIMG BI PROCEDURESFinal Result from Last 3 Months or Most Recently Relevant to Health Maintenance Insurance Care Teams Team MemberRelationshipSpecialtyStart DateEnd Date Noel Farnsworth MD [address] [place] [address] PCP - GeneralInternal Medicine08/14/22
--- OUTSIDE RECORDS SUMMARY | 2025-02-01 07:57 | XMS_ITS | CCD ---
Author Organization [facility] Care Team Providers Care Residential Framing Carpenter Name Role Phone STEPHANIE CAVAZOS AM Admitting Unavailable STEPHANIE CAVAZOS AM Attending Unavailable NOEL FARNSWORTH Referring Unavailable NOEL FARNSWORTH Primary Care Unavailable PHYSICIAN, DEFAULT Admitting Unavailable PHYSICIAN, DEFAULT Attending Unavailable NOEL FARNSWORTH Primary Care Unavailable Unavailable Unavailable Unavailable Unavailable SALMA Farnsworth Primary Care Provider [phone] TANIA Knight Attending Provider [phone] DO Sherlyn Rucker Referring Provider GLEN Knight [...] e DR NOEL FARNSWORTH Primary Care Unavailable HACKETT, DR MILY Batista Admitting Unavailable HACKETT, DR MILY Batista Consulting Unavailable HACKETT, DR MILY Batista Attending Unavailable JAVAD, DR PETERSON Primary Care Unavailable HACKETT, DR MILY Batista Consulting Unavailable HACKETT, DR MILY Batista Attending Unavailable HACKETT, DR MILY Batista Admitting Unavailable FAWWACintia, KOCH [...] KOCH H Admitting Unavailable Noel Farnsworth Unavailable Hackett, Dr. Mily Borrero Attending Soniya vailable Hackett, Dr. Mily Borrero Referring Soniya vailable Farnsworth II, Dr. Noel Payne Primary Care Soniya vailable Hackett, Dr. Mily Borrero Attending Soniya vailable Hackett, Dr. Mily Borrero Referring Soniya vailable Farnsworth II, Dr. Noel Payne Primary Care Soniya vailable Farnsworth, II Noel Primary Care Provider [phone] Self, Referral Attending Provider Unavailable Farnsworth, II Noel Attending Provider Noel Farnsworth MD Primary Care Provider Noel Farnsworth MD Primary Care Provider TRUNG GONZALEZ Attending Un available JAVAD NOEL B Referring Unavailable JAVAD NOEL B Primary Care Unavailable Farnsworth II, Noel Primary Care Provider Sherlyn Rucker DO Attending Provider [phone] Noel Farnsworth MD Primary Care Provider TRUNG RICE Attending Un available JAVAD NOEL B Referring Unavailable JAVAD NOEL B Primary Care Unavailable JAVAD NOEL B Primary Care Physician MILY HACKETT Attending Unavailable MILY HACKETT Referring Unavailable JAVAD NOEL B Primary Care Unavailable MILY HACKETT Attending Unavailable MILY HACKETT Referring Unavailable JAVAD NOEL B Primary Care Unavailable Farnsworth SALMA Noel Primary Care Provider [phone] Reji KUMAR-CEmily Attending Provider [phone] Adali Rudd DOe Ivania Attending Provider Ly DOFernanda Other Provider JavadNoel Primary Care Unavailable Ly, Fernanda L Admitting Unavailable Ly, Fernanda L Attending Unavailable Javad Noel Primary Care Unavailable Emily Park Admitting Unavailable Emily Park Attending Unavailable Javad Noel Primary Care Unavailable Sherlyn Rucker Admitting Unavailable Sherlyn Rucker Attending Unavailable Nona Barahona Attending Unavailable Nona Barahona Admitting Unavailable Nona Barahona Attending Unavailable JAVAD NOEL B Referring Unavailable Aditi Eduardo Attending Unavailable Aditi Eduardo Attending Unavailable Nona Barahona Attending Unavailable Nona Barahona Admitting Unavailable Noel Farnsworth MD Primary Care Provider LAZARO MILIAN Attending Unavailable LAZARO MILIAN Referring Unavailable SHERLYN RUCKER Attending Unavailable MARLA KNIGHT Attending Unavailable DENISHA GRACIA Attending Unavailable NOEL FARNSWORTH Attending Unavailable NOEL FARNSWORTH Attending Unavailable MARLA KNIGHT Attending Unavailable MARLA KNIGHT Attending Unavailable EMILY PARK Attending Unavailable EMILY PARK Attending Unavailable NOEL FARNSWORTH Attending Unavailable EMILY PARK Attending Unavailable EMILY PARK Attending Unavailable NOEL FARNSWORTH Attending Unavailable MARLA KNIGHT Attending Unavailable NOEL FARNSWORTH Attending Unavailable LAZARO MILIAN Attending Unavailable Allergies Allergy ClassificationReported Allergen(s)Allergy TypeDate of OnsetReaction(s) Facility (1 source)PARFON-FORTE; Translations: [PARFON-FORTE]Propensity to adverse reactions (disorder)27-64-4547Mjt [facility] Repository (17 sources)Chlorzoxazone; Translations: [Parafon Forte DSC TABS]Drug Allergy 29-08-1554Qrxva, Other (See Comments), Weal (disorder)[facility] (1 source)Parafon Forte DSCDrug allergy (disorder[place]39[place] [facility] (20 sources)Chlorzoxazone; Translations: [CHLORZOXAZONE]Drug Wihkanb60-64-9492 Hives, [facility] ([facility] sources)gabapentin; Translations: [GABAPENTIN]Drug Tmoiojr74-47-0135Jgpqomk, Other (See Comments), Nausea (finding), Weal (disorder)[facility] Medications Current Medications MedicationDrug Class(es)DatesSig (Normalized)Sig (Original)Acidophilus Probiotic Blend (2 sources)Start: 06-42-7041Fxapjqxlioa Probiotic Blend Oral, Daily, Refill(s) 0 Start Date: 08/26/24 Status: Ordered Repeat number: 1amoxicillin 875 mg / clavulanate 125 mg oral tablet (12 sources)Penicillin-class AntibacterialStart: 06-24-2024 End: 26-83-4270rqfk 1 tablet by mouth in the morningamoxicillin-clavulanate (Augmentin) 875-125 MG tablet Indications: Acute frontal sinusitis, recurrence not specified Take 1 tablet (875 mg) by mouth in the morning and 1 tablet (875 mg) before bedtime. Do all this for 14 days. 28 tablet 06/24/2024 07/08/2024 ActiveStart: 04-16-2024 End: 75-65-5537plwf 1 tablet by mouth in the morningamoxicillin-clavulanate (Augmentin) 875-125 MG tablet Indications: Acute non-recurrent sinusitis, un specified location Take 1 tablet (875 mg) by mouth in the morning and 1 tablet (875 mg) before bedtime. Do all this for 10 days. 20 tablet 04/16/2024 04/30/2024 Discontinued (Therapy completed)ascorbic acid 1000 mg oral capsule (20 sources)Vitamin CStart: 88-48-4816unju 1 capsule by mouth twice daily Ascorbic Acid (Vitamin C) 1,000 mg capsule Active 1000 MG PO Twice daily September 03, 2024 12:00am Complies with drug therapyAscorbic Acid (vitamin C) 1000 MG tablet Activetake 2 tablets by mouth once dailyascorbic acid (Vitamin C) 1,000 mg tablet Take 2 tablets (2,000 mg) by mouth once daily. Activeaspirin 81 mg oral tablet (20 sources)Platelet Aggregation Inhibitor, Nonsteroidal Anti-inflammatory Drug Start: 17-52-5568qnhz 1 tablet by mouth once dailyAspirin 81 mg tablet Active 81 MG PO Daily September 03, 2024 12:00am Complies with drug therapytake 1 tablet by mouth once dailyaspirin 81 MG EC tablet Take 1 tablet by mouth Daily Active azelastine hydrochloride 0.137 mg/actuat metered dose nasal spray (20 sources)Histamine-1 Receptor AntagonistStart: 81-45-0230vomylxunzx hydrochloride 137 mcg spray = 1 spray(s), Refills(s) 0 Start Date: 08/21/24 Status: Ordered Repeat number: 1Start: 08-07-2024 End: 05-67-6204fjnl 1 spray(s) nasal route in the morningAzelastine HCl 137 MCG/SPRAY solution Indications: Seasonal allergies Administer 1 spray into affected nostril(s) in the morning and 1 spray before bedtime. Do all this for 14 days. 30 mL 08/07/2024 12/31/2024 Discontinuedazithromycin 250 mg oral tablet (3 sources)Macrolide AntimicrobialStart: 10-26-2024 End: 98-73-5735fqoh 2 tablets by mouth once daily, then take 1 tablet by mouth once dailyazithromycin (Zithromax) 250 MG tablet Indications: Mild intermittent asthmatic bronchitis without complication (HCC) Take 2 tablets (500 mg) by mouth Daily for 1 day, THEN 1 tablet (250 mg) Daily for 4 days. 6 tablet 10/26/2024 10/31/2024 ActiveStart: 04-10-2023 End: 30-68-4602ajdn 2 tablets by mouth once daily, then take 1 tablet by mouth once dailyazithromycin (Zithromax) 250 MG tablet Indications: Acute non- recurrent sinusitis, unspecified location Take 2 tablets (500 mg) by mouth Daily for 1 day, THEN 1 tablet (250 mg) Daily for 6 days. 8 tablet 0 04/17/2023 04/24/2023 ActiveB Complex 100 (2 sources)Start: 08-26-2024 Complex 100 Refill(s) 0 Start Date: 08/26/24 Status: Ordered Repeat number: 1Bacillus coagulans / Inulin (3 sources)take 1 tablet by mouth once dailyBACILLUS COAGULANS-INULIN ORAL Take 1 tablet by mouth once daily. Activetake 1 tablet by mouth once dailyBACILLUS COAGULANS-INULIN ORAL Take 1 tablet by mouth once daily. 0 Activecalcium carbonate 1500 mg oral tablet (20 sources)take 1 tablet by mouth in the morningcalcium carbonate 1500 (600 Ca) MG tablet Take 600 mg by mouth in the morning. Activetake 1 tablet by mouth once dailycalcium carbonate 600 mg calcium (1,500 mg) tablet Take 1 tablet (1,500 mg) by mouth once daily. Activecalcium citrate-vitamin D3 (1 source)Start: 58-95-6261zrds 1 tablet by mouth twice dailycalcium citrate- vitamin D3 Active 1 TAB PO Twice daily September 03, 2024 12:00am Complies with drug therapycefdinir 300 mg oral capsule (4 sources)Cephalosporin AntibacterialStart: 02-28-2024 End: 80-71-0059enhn 1 capsule by mouth in the morningcefdinir (Omnicef) 300 MG capsule Indications: Acute non-recurrent sinusitis, unspecified location Take 1 capsule (300 mg) by mouth in the morning and 1 capsule (300 mg) before bedtime. Do all this for 7 days. 14 capsule 02/28/2024 03/12/2024 Discontinued (Therapy completed)cephalexin 500 mg oral capsule (12 sources)Cephalosporin AntibacterialStart: 09-22-2024 End: 24-43-2723vawz 1 capsule by mouth in the morning, then take 1 capsule by mouth in the evening, then take 1 capsule by mouth at bedtimecephalexin (Keflex) 500 MG capsule Indications: Wound infection Take 1 capsule (500 mg) by mouth in the morning and 1 capsule (500 mg) in the evening and 1 capsule (500 mg) before bedtime. Do all this for 10 days. 30 capsule 09/22/2024 10/06/2024 Discontinued (Therapy completed)Start: 04-30-2024 End: 13-24-3646ymnb 1 capsule by mouth in the morning, then take 1 capsule by mouth in the evening, then take 1 capsule by mouth at bedtimecephalexin (Keflex) 500 MG capsule Indications: Cellulitis, unspecified cellulitis site Take 1 capsule (500 mg) by mouth in the morning and 1 capsule (500 mg) in the evening and 1 capsule (500 mg) before bedtime. Do all this for 10 days. 30 capsule 04/30/2024 05/10/2024 Activetake 1 capsule by mouth every eight hoursCephalexin 500 MG Oral Capsule TAKE 1 CAPSULE EVERY 8 HOURS UNTIL GONE. Quantity: 0 Refills: 0 Ordered: 01-Nov-2021 DO Activecholecalciferol 1.25 mg oral capsule (20 sources)Vitamin DStart: 06-18-2023 End: 02-53-0892sprj 1 capsule by mouth in the morningcholecalciferol (VITAMIN D3) 50,000 units capsule Take 1 capsule (50,000 Units total) by mouth in the morning. 100 capsule 3 06/23/2024 ActiveStart: 04-11-3320grdbqouywzzsuhr (Vitamin D-3) 1.25 MG (87101 UT) capsule Indications: Vitamin D deficiency Take onecapsule daily 100 capsule 3 02/27/2023 Activecholecalciferol (Vitamin D-3) 25 MCG (1000 UT) tablet Take 80 tablets (80,000 Units) by mouth once daily. Active ciprofloxacin 250 mg oral tablet (3 sources)Quinolone AntimicrobialStart: 10-06-2024 End: 21-66-5294uopq 1 tablet by mouth in the morningciprofloxacin (Cipro) 250 MG tablet Indications: Acute cystitis with hematuria Take 1 tablet (250 mg) by mouth in the morning and 1 tablet (250 mg) before bedtime. Do all this for 5 days. 10 tablet 10/06/2024 10/11/2024 ActiveCitracal Maximum + D oral tablet (2 sources)Start: 44-50-1583Jblvpkid Maximum + D oral tablet 1 tab(s), Oral, BID, 60 tab(s), Refill(s) 0 Start Date: 08/26/24 Status: Ordered Quantity: 60.0 Unit: tab(s) Repeat number: 1clotrimazole 10 mg oral lozenge (5 sources)Azole AntifungalStart: 08-17-2024 End: 42-06-6710jyjm 1 tablet by mouth five times dailyclotrimazole (Mycelex) 10 MG yelena Indications: Alcides esophagitis (HCC) Take 1 tablet (10 mg) bymouth 5 (five) times a day for 7 days 35 tablet 08/17/2024 08/24/2024 Activecopper gluconate 2 mg oral tablet (20 sources)Start: 99-94-4322tfyj 1 tablet by mouth once dailycopper gluconate 2 mg oral tablet 2 mg = 1 tab(s), Oral, Daily, # 30 tab(s), Refills(s) 0 Start Date: 08/26/24 Status: Ordered Quantity: 30.0 Unit: tab(s) Repeat number: 1 cyanocobalamin, vitamin B-12, (VITAMIN B-12 ORAL) (3 sources)take 1 tablet by mouth once dailycyanocobalamin, vitamin B-12, (VITAMIN B-12 ORAL) Take 1 tablet by mouth once daily. Activetake 1 tablet by mouth once dailycyanocobalamin, vitamin B-12, (VITAMIN B-12 ORAL) Take 1 tablet by mouth once daily. 0 Activedocosahexaenoic acid/epa (FISH OIL ORAL) (3 sources)take 1400 mg by mouth once dailydocosahexaenoic acid/epa (FISH OIL ORAL) Take 1,400 mg by mouth once daily. Activetake 1400 mg by mouth once daily docosahexaenoic acid/epa (FISH OIL ORAL) Take 1,400 mg by mouth once daily. 0 ActiveELDERBERRY FRUIT (1 source)Start: 43-66-8120cuuh 1 capsule by mouth once dailyelderberry fruit Active 1 CAP PO Daily September 03, 2024 12:00am Complies with drug therapy Elderberry Gummies with Vitamin C and Zinc (2 sources)Start: 56-06-3755Wdbpjjngib Gummies with Vitamin C and Zinc Chewed, Daily, Refill(s) 0 Start Date: 08/26/24 Status: Ordered Repeat number: 1estradiol 0.1 mg/ml vaginal cream (10 sources)EstrogenStart: 87-16-8104Cgnzjae 0.1 MG/GM vaginal cream See Instructions, 42.5 gm, Refill(s) 6, Apply pea-sized amount around urethra and inside vagina 3 times per week at night for one month then 2 times per week after formaintenance., [facility]/pharmacy #[id number] 08/26/2024 ActiveStart: 08-26-2024 Estrace 0.1 mg/g Cream See Instructions, 42.5 gm, Refill(s) 6, Apply pea-sized amount around urethra and inside vagina 3 times per week at night for one month then 2 times per week after for maintenance., [facility]/pharmacy #[id number] Start Date: 08/26/24 Status: Ordered Quantity: 42.5 Unit: g Repeat number: 7etodolac 400 mg oral tablet (2 sources)Nonsteroidal Anti-inflammatory DrugStart: 06-15-2024 End: 35-83-2893twhx 1 tablet by mouth twice daily as neededetodolac (Lodine) 400 MG tablet Take 400 mg by mouth 2 (two) times a day as needed 06/15/20242024 Discontinued (Therapy completed)famotidine 20 mg oral tablet (20 sources)Histamine-2 Receptor AntagonistStart: 28-17-0653ciwx 1 tablet by mouth once daily before mealtimeFamotidine (Pepcid Ac) 20 mg tablet Active 20 MG PO Daily September 03, 2024 12:00am Complies with drug therapyferrous sulfate 325 mg oral tablet (20 sources)Start: 10-11-8767myjf 2 tablets by mouth twice dailyFerrous Sulfate 325 mg (65 mg iron) tablet Active 325 MG PO Twice daily September 03, 2024 12:00am FreeTextSi tablets Orally Once a day; Note: Source Status: Taking; Provider: Shasta Guerrier ( ) Complies with drug therapyStart: 09-14-2022 End: 40-85-2172exen 1 tablet by mouth three times weeklyferrous sulfate 325 (65 Fe) MG tablet Indications: Bariatric surgery status TAKE 1 TABLET BY MOUTH 3 TIMES A WEEK (SATURDAY, SATURDAY,SATURDAY) 36 tablet 3 09/14/2022 04/16/2024 Discontinued (Reorder)Start: 02-09-2020 End: 77-30-9823tyij 1 tablet by mouth in the morningferrous sulfate 325 (65 Fe) MG tablet Indications: Bariatric surgery status Take 1 tablet (325 mg) by mouth in the morning and 1 tablet (325 mg) before bedtime. 60 tablet 11 04/16/2024 04/11/2025 ActiveFish Oils (2 sources)Start: 24-72-7275hhzu 1 capsule by mouth three times dailyOmega-3 Fish Oil 1200 mg oral capsule mg cap(s), Oral, TID, Refills(s) 0 Start Date: 08/26/24 Status: Ordered Repeat number: 1Lactobacillus acidophilus (1 source)Start: 43-06-3895bpxj 1 tablet by mouth once dailyLactobacillus acidophilus Active 1 TAB PO Daily September 03, 2024 12:00am Complies with drug therapyloratadine 10 mg oral tablet (20 sources) End: 89-98-9538erxo 1 tablet by mouth every twenty-four hours as needed loratadine (Claritin) 10 mg tablet Take 1 tablet (10 mg) by mouth once daily as needed for allergies. 08/27/2024 Discontinued (Discontinued by another clinician)Magnesium (20 sources)Start: 89-15-7428slyt 2 tablets by mouth once dailyMagnesium 200 mg tablet Active 400 MG PO Daily September 03, 2024 12:00am Complies with drug therapy take 400 mg by mouth once dailyMAGNESIUM ORAL Take 400 mg by mouth once daily. Activetake 250 mg by mouth in the morningMAGNESIUM PO Take 250 mg by mouth in the morning. Activetake 1 tablet by mouth once dailymagnesium 250 mg tablet Take 1 tablet (250 mg) by mouth once daily. 0 Activetake 250 mg by mouth in the morningMAGNESIUM PO Take 250 mg by mouth in the morning. 0 Activetake 1 tablet by mouth once dailyMagnesium 250 MG Oral Tablet TAKE 1 TABLET DAILY. Quantity: 0 Refills: 0 Ordered: 23-Oct-2022 DO Activemagnesium oxide 400 mg oral tablet (2 sources)Start: 08-66-0315juro 1 mg by mouth once dailymagnesium oxide 400 mg Tab mg tab(s), Oral, Daily, Refills(s) 0 Start Date: 08/26/24 Status: Ordered Repeat number: 1methylPREDNISolone (3 sources)CorticosteroidStart: 10-29-2023 End: 53-83-0032nahhjrJAXUENFggmve (Medrol Dospak) 4 MG tablets Indications: Disorder of left eustachian tube Follow schedule on package instructions 21 tablet 10/29/2023 11/05/2023 Activemetoprolol tartrate 25 mg oral tablet (20 sources)beta-Adrenergic BlockerStart: 93-82-4558jqmi 1 tablet by mouth twice dailyMetoprolol Tartrate 25 mg tablet Active 25 MG PO Twice daily September 03, 2024 12:00am Complies with drug therapyStart: 20-04-2733syhm 1 tablet by mouth twice dailymetoprolol tartrate (Lopressor) 25 mg tablet Indications: Essential hypertension Take 1 tablet (25 mg) by mouth 2 times a day. 180 tablet 3 08/27/2024 ActiveStart: 15-04-8432gbof 1 tablet by mouth oncemetoprolol tartrate (Lopressor) 25 MG tablet Indications: Essential hypertension, benign Take 1 tablet (25 mg) by mouth every 12 (twelve) hours 200 tablet 3 02/27/2023 Active Start: 02-09-2020 End: 40-41-3481qvwc 1 tablet by mouth twice dailymetoprolol tartrate (Lopressor) 25 mg tablet Indications: Essential hypertension TAKE 1 TABLET BY MOUTH TWICE DAILY 180 tablet 3 12/05/2023 08/27/2024 Discontinued (Reorder)metroNIDAZOLE 500 mg oral tablet (2 sources)Nitroimidazole AntimicrobialStart: 93-09-4729tepg 1 tablet by mouth in the morningmetroNIDAZOLE (Flagyl) 500 MG tablet Take 500 mg by mouth in the morning. 0 02/07/2023 ActiveMulti Vitamin+ (2 sources)Start: 42-10-7669Wjnbm Vitamin+ Refill(s) 0 Start Date: 08/26/24 Status: Ordered Repeat number: 1multivitamin capsule (3 sources)take 1 capsule by mouth once dailymultivitamin capsule Take 1 capsule by mouth once daily. Activetake 1 capsule by mouth once dailymultivitamin capsule Take 1 capsule by mouth once daily. 0 DbndguZx-Ivt-Zmydh-Calcium Carb-K1 (Women's 50 Plus Multivitamin) 400 mcg-500 mg calcium-20 mcg tablet (1 source)Start: 21-69-1029nord 1 tablet by mouth once ruikhUt-Kcp-Akctg-Calcium Carb-K1 (Women's 50 Plus Multivitamin) 400 mcg-500 mg calcium-20 mcg tablet Act jj 1 TAB PO Daily September 03, 2024 12:00am Complies with drug therapyomega-3 acid ethyl esters (jail) 1000 mg oral capsule (1 source) End: 78-55-1927kxzs 1 capsule by mouth once dailyomega-3 acid ethyl esters (Lovaza) 1 gram capsule Take 900 mg by mouth once daily. 11/28/2023 Discontinued (Therapy completed)[place]-3 Fatty Acids (Fish Oil) 1200 MG capsule delayed-release (20 sources)[place]-3 Fatty Acids (Fish Oil) 1200 MG capsule delayed-release ActiveOmega-3 Fatty Acids (Fish Oil) 1200 MG capsule delayed-release Fish Oil ActiveOmega-3 Fatty Acids (Fish Oil) 1200 MG capsule delayed-release Fish Oil 0 ActiveOmega-3 Fatty Acids capsule (1 source)Start: 75-34-4600qbrw 1 capsule by mouth once dailyOmega-3 Fatty Acids capsule Active 1250 MG PO Daily September 03, 2024 12:00am Complies with drug therapypantoprazole 40 mg delayed release oral tablet (20 sources)Proton Pump InhibitorStart: 02-09-2020 End: 09-98-7278fvzr 1 tablet by mouth once dailypantoprazole (ProtoNix) 40 MG EC tablet Indications: Gastroesophageal reflux disease without esophagitis TAKE 1 TABLET BY MOUTH DAILY 100 tablet 3 11/06/2023 09/22/2024 Discontinued (Other) phenazopyridine hydrochloride 200 mg delayed release oral tablet (5 sources)Start: 10-06-2024 End: 88-20-8603reir 1 tablet by mouth three times daily as needed for muscle spasmsphenazopyridine (Pyridium) 200 MG tablet Indications: Acute cystitis with hematuria Take 1 tablet (200 mg) by mouth 3 (three) times a day as needed for bladder spasms for up to 2 days 6 tablet 10/06/2024 10/08/2024 ActiveStart: 08-07-2024 End: 24-76-4415cxjf 1 tablet by mouth three times daily as needed for muscle spasmsphenazopyridine (Pyridium) 200 MG tablet Indications: Acute cystitis with hematuria Take 1 tablet (200 mg) by mouth 3 (three) times a day as needed for bladder spasms for up to 2 days 6 tablet 08/07/2024 08/09/2024 Activepotassium bicarbonate 20 meq effervescent oral tablet (2 sources)Start: 05-46-9221tmtd 1 tablet by mouth once dailypotassium bicarbonate 20 mEq oral tablet, effervescent mEq tab(s), Oral, Daily, Refills(s) 0 Start Date: 08/26/24 Status: Ordered Repeat number: 1microencapsulated potassium chloride 20 meq extended release oral tablet (20 sources)Start: 08-08-2024 End: 15-45-7888ukfp 1 tablet by mouth four times dailyPotassium Chloride 20 mEq tablet,ER particles/crystals Active 20 MEQ PO Four times daily August 12:00am Complies with drug therapyStart: 05-03-2023 End: 84-03-1059dxso 1 tablet by mouth four times dailypotassium chloride CR 20 mEq ER tablet Indications: Hypokalemia Take 1 tablet (20 mEq) by mouth 4 times a day. 360 tablet 3 07/10/2023 07/09/2024 ActiveStart: 95-33-7617nlwwytvdf chloride ER (Micro-K) 10 MEQ ER capsule Indications: Essential hypertension, benign (CMS/HCC) TAKE 3 CAPSULES BY MOUTH THREE TIMES DAILY WITH FOOD 300 capsule 3 03/20/2023 ActiveStart: 18-62-8824Xasiqqvne Chloride Carmen ER 20 MEQ Oral Tablet Extended Release take 4 tablets ( 80 meq) daily Quantity: 360 Refills: 3 Ordered: 23-Oct-2022 Mily Hackett MD Start : 09-May-2022 Active new meqStart: 38-63-0617hgpg 3 tablets by mouth three times dailyPotassium Chloride ER 10 MEQ Oral Tablet Extended Release TAKE 3 TABLETS BY MOUTH 3 TIMES A DAY Quantity: 810 Refills: 3 Ordered: 28-Nov-2021 Mily Hackett MD Start : 06-Nov-2021 ActiveStart: 09-22-2143sksd 2 capsules by mouth three times daily Potassium Chloride ER 10 MEQ Oral Capsule Extended Release TAKE 2 CAPSULE 3 times daily Quantity: 0Refills: 0 Ordered: 30-Apr-2020 DO Start : 09-Feb-2020 Activepotassium chloride 20 mEq tablet extended release Take 1 tablet (20 mEq total) by mouth. ActivepredniSONE 10 mg oral tablet (4 sources)Start: 07-07-2024 End: 47-03-4689mmut 1 tablet by mouth three times daily, then take 1 tablet by mouth twice daily, then take 1 tablet by mouth once dailypredniSONE (Deltasone) 10 MG tablet Indications: Right cervical radiculopathy Take 1 tablet (10 mg)by mouth 3 (three) times a day for 3 days, THEN 1 tablet (10 mg) 2 (two) times a day for 3 days, THEN 1 tablet (10 mg) Daily for 3 days. 18 tablet 07/07/2024 07/16/2024 ActiveStart: 01-03-2024 End: 68-57-8648vubr 1 tablet by mouth in the morningpredniSONE (Deltasone) 10 MG tablet Indications: Acute URI Take 1 tablet (10 mg) by mouth in the morning and 1 tablet (10 mg) at noon. Do all this for 5 days. Take with breakfast and with lunch. 10 tablet 01/03/2024 01/08/2024 Activepsyllium husk (1 source)Start: 42-55-3468pavm 1 capsule by mouth once dailypsyllium husk Active 1 CAP PO Daily September 03, 2024 12:00am Complies with drug therapy spironolactone 25 mg oral tablet (20 sources)Aldosterone AntagonistStart: 04-03-2023 End: 19-68-0871hulk 1 tablet by mouth once dailyspironolactone (Aldactone) 50 mg tablet Indications: Essential hypertension , Hypokalemia Take 1 tablet (50 mg) by mouth once daily. 90 tablet 3 05/13/2023 11/28/2023 Discontinued (Therapy completed)Start: 10-62-2214eygkjqxamxweij 25 mg Tab 50 mg = 2 tab(s), Refills(s) 0 Start Date: 08/21/24 Status: Ordered Repeat number: 1Start: 73-04-5101piqn 1 tablet by mouth once dailySpironolactone 25 mg tablet Active 25 MG PO Daily September 03, 2024 12:00am Complies with drug therapytiZANidine 4 mg oral tablet (19 sources)Central alpha-2 Adrenergic AgonistStart: 07-07-2024 End: 74-18-5855avwq 1 tablet by mouth oncetiZANidine (Zanaflex) 4 MG tablet Indications: Cervical paraspinal muscle spasm Take 1 tablet (4 mg) by mouth every 12 (twelve) hours if needed for muscle spasms for up to 10 days 20 tablet 07/07/2024 10/06/2024 Discontinued (Therapy completed)torsemide 20 mg oral tablet (20 sources)Loop DiureticStart: 95-15-0593wamf 1 tablet by mouth once daily Torsemide 20 mg tablet Active 20 MG PO Daily September 03, 2024 12:00am Complies with drug therapyStart: 32-28-1011vwnw 1 tablet by mouth once dailytorsemide (Demadex) 20 mg tablet Indications: Essential hypertension Take 1 tablet (20 mg) by mouthonce daily. 90 tablet 3 08/27/2024 ActiveStart: 10-26-2020 End: 93-39-6642fgld 1 tablet by mouth once dailytorsemide (Demadex) 20 MG tablet Indications: Edema, unspecified type TAKE 1 TABLET BY MOUTH EVERY DAY 100 tablet 3 11/02/2022 Activeturmeric extract 500 mg oral capsule (20 sources)take 1 tablet by mouth in the morningTurmeric 500 MG tablet Take 1 tablet by mouth in the morning. Activetake 1 tablet by mouth in the morning Turmeric 500 MG tablet Take 1 tablet by mouth in the morning. 0 Activetake 1 tablet by mouth once dailyTurmeric 500 MG Oral Tablet one daily Quantity: 0 Refills: 0 Ordered: 09-May-2022 DO Activeturmeric root extract (1 source)Start: 88-18-1996cqrg 1400 mg by mouth once dailyturmeric root extract Active 1400 MG PO Daily September 03, 2024 12:00am Complies with drug therapy turmeric root extract 500 mg tablet (3 sources)take 1 tablet by mouth once dailyturmeric root extract 500 mg tablet Take 1 tablet by mouth once daily. Activetake 1 tablet by mouth once daily turmeric root extract 500 mg tablet Take 1 tablet by mouth once daily. 0 Active Vitamin B Complex tablet (1 source)Start: 80-18-3135dqzo 1 tablet by mouth once dailyVitamin B Complex tablet Active 1 TAB PO Daily September 03, 2024 12:00am Complies with drug therapy Vitamin C 1000 mg oral tablet (2 sources)Start: 64-06-8900gjgy 1 tablet by mouth once dailyVitamin C 1000 mg oral tablet 1,000 mg = 1 tab(s), Oral, Daily, # 30 tab(s), Refills(s) 0 Start Date: 08/26/24 Status: Ordered Quantity: 30.0 Unit: tab(s) Repeat number: 1 Vitamin D3 50,000 intl units oral capsule (2 sources)Start: 49-95-3788Nmfttuh D3 50,000 intl units oral capsule 1,250 mcg = 1 cap(s), Refills(s) 0 Start Date: 08/21/24 Status: Ordered Repeat number: 1 Vonoprazan (1 source)Start: 88-58-9814vpjf 1 tablet by mouth once dailyVonoprazan (Voquezna) 20 mg tablet Active 20 MG PO Daily September 03, 2024 12:00am Complies with drugtherapyvonoprazan (Voquezna) 20 mg tablet (1 source)vonoprazan (Voquezna) 20 mg tablet Take by mouth. Activevonoprazan 20 MG Oral Tablet [Voquezna] (2 sources)Start: 57-67-5198iuaz 1 mg by mouth once dailyVoquezna 20 mg oral tablet mg tab(s), Oral, Daily, Refills(s) 0 Start Date: 08/26/24 Status: Ordered Repeat number: 1Vonoprazan Fumarate (Voquezna) 20 MG tablet (20 sources)Start: 44-73-6284zrxw 1 tablet by mouth once dailyVonoprazan Fumarate (Voquezna) 20 MG tablet Indications: Erosive esophagitis Take 20 mg by mouth Daily 100 tablet 3 12/18/2024 ActiveStart: 09-02-2024 End: 64-55-6663xqpd 1 tablet by mouth once dailyVonoprazan Fumarate (Voquezna) 20 MG tablet Indications: Erosive Esophagitis Take 20 mg by mouth Daily 90 tablet 3 09/02/2024 10/06/2024 Discontinued (Duplicate order)Start: 09-02-2024 take 1 tablet by mouth once dailyVonoprazan Fumarate (Voquezna) 20 MG tablet Indications: Erosive Esophagitis Take 20 mg by mouth Daily 90 tablet 3 09/02/2024 Activetake 1 tablet by mouth once dailyVonoprazan Fumarate (Voquezna) 20 MG tablet Take 20 mg by mouth Daily Activewarfarin sodium 2.5 mg oral tablet (20 sources)Vitamin K AntagonistStart: 90-25-8961fmiagxzm (Coumadin) 2.5 MG tablet 07/31/2024 ActiveStart: 01-10-4140Sgkxlnqd Sodium 2.5 MG Oral Tablet Agnes manages warfarin at [facility] Quantity: 0 Refills: 0 Ordered: 23-Apr-2021 DO Start : 24-Aug-2020 Activewarfarin (Coumadin) 5 MG tablet 1 (one) time each day at the same time ActiveZinc (3 sources)Start: 33-61-7475tuhs 1 tablet by mouth once dailyZinc Active 1 TAB PO Daily September 03, 2024 12:00am Complies with drug therapyzinc 100 MG tablet 1 (one) time each day at the same time. 0 ActiveZinc Acetate (2 sources)Start: 96-50-5909towm acetate Oral, TID, Refills(s) 0 Start Date: 08/26/24 Status: Ordered Repeat number: 1zinc gluconate 50 mg oral tablet (20 sources)take 1 tablet by mouth in the morningzinc gluconate 50 MG tablet Take 50 mg by mouth in the morning. Active Completed/Discontinued Medications MedicationDrug Class(es)DatesSig (Normalized)Sig (Original)betamethasone 3 mg/ml / betamethasone acetate 3 mg/ml injectable suspension (16 sources)CorticosteroidStart: 12-31-2024 End: 00-39-5492giosgikkidahb acetate-betamethasone sodium phosphate (Celestone) injection 1 mLStart: 12-31-2024 End: mL, Intra-articular, Once PRN Procedure, Starting on Ping 12/31/24 at 0939, For 1 doseStart: 07-02-2024 End: 48-61-4115uosusfskdtdgt acetate-betamethasone sodium phosphate (Celestone) injection 12 mgStart: 07-02-2024 End: 55-77-522209 mg, Intra-articular, Once PRN Procedure, Starting on Ping 07/02/24 at 0957, For 1 doseStart: 01-02-2024 End: 21-16-1448xllefqdlgrxjs acetate-betamethasone sodium phosphate (Celestone) injection 2 mLStart: 01-02-2024 End: mL, Intra-articular, Once PRN Procedure, Starting on Ping 01/02/24 at 0918, For 1 doseFish Oil CAPS (10 sources)Fish Oil CAPS take 1400mg once daily Quantity: 0 Refills: 0 Ordered: 26-Apr-2021 DO Activefluticasone propionate 0.05 mg/actuat metered dose nasal spray (20 sources)CorticosteroidStart: 04-16-2024 End: 17-77-2559cqxh 2 spray(s) nasal route once dailyfluticasone (Flonase) 50 MCG/ACT nasal spray Indications: Acute non-recurrent sinusitis, unspecified location ADMINISTER 2 SPRAYS INTO EACH NOSTRIL DAILY SHAKE GENTLY. BEFORE FIRST USE, PRIME PUMP. AFTER USE, CLEAN TIP AND REPLACE CAP 48 mL 1 05/11/2024 07/07/2024 Discontinued (Duplicate order)Start: 99-79-4451puwa 1 spray(s) nasal route in the morningfluticasone (Flonase) 50 MCG/ACT nasal spray Indications: Acute dysfunction of left eustachian tubeAdminister 1 spray into each nostril in the morning. Shake gently. Before first use, prime pump. After use, clean tip and replace cap.. 16 g 2 12/05/2022 ActiveStart: 87-16-7004kkyw 2 spray(s) nasal route once dailyfluticasone propionate (FLONASE) 50 mcg/actuation nasal spray Administer 2 sprays into each nostrilonce daily. 04/03/2022 ActivemetOLazone 5 mg oral tablet (4 sources)Thiazide-like DiureticStart: 06-48-2766uqid 1 tablet by mouth every other daymetOLazone 5 MG Oral Tablet TAKE 1 TABLET EVERY OTHER DAY Quantity: 45 Refills: 3 Ordered: 09-May-2022 Mily Hackett MD Start : 06-Nov-2021 Active new startMulti Vitamin Oral Tablet (10 sources)take 1 tablet by mouth once dailyMulti Vitamin Oral Tablet TAKE 1 TABLET DAILY. Quantity: 0 Refills: 0 Ordered: 26-Apr-2021 DO ActiveProbiotic CAPS (10 sources)Probiotic CAPS Take as directed Quantity: 0 Refills: 0 Ordered: 26-Apr-2021 DO Activesulfamethoxazole 800 mg / trimethoprim 160 mg oral tablet (9 sources)Dihydrofolate Reductase Inhibitor Antibacterial, Sulfonamide AntimicrobialStart: 08-07-2024 End: 13-57-1724utxx 1 tablet by mouth once in the morning, then take 1 tablet by mouth once at bedtimesulfamethoxazole-trimethoprim (Bactrim DS) 800-160 MG per tablet Indications: Acute cystitis with hematuria Take 1 tablet by mouth in the morning and 1 tablet before bedtime. Do all this for 7 days. 14 tablet 08/07/2024 08/24/2024 Discontinued (Therapy completed)Start: 03-12-2024 End: 68-76-7681qapg 1 tablet by mouth once in the morning, then take 1 tablet by mouth once at bedtimesulfamethoxazole-trimethoprim (Bactrim DS) 800-160 MG per tablet Indications: Acute non-recurrent sinusitis, unspecified location Take 1 tablet by mouth in the morning and 1 tablet before bedtime. Doall this for 7 days. 14 tablet 03/12/2024 03/19/2024 Active1 ml triamcinolone acetonide 40 mg/ml prefilled syringe (4 sources)CorticosteroidStart: 06-24-2024 End: 74-52-2973idchihsrqbxej acetonide (Kenalog-40) injection 40 mgStart: 06-24-2024 End: 26-07-4028tbevfn 40 mg by intramuscular injection once40 mg, Intramuscular, Once, On Sat06/24/24 at 1430, For 1 doseStart: 06-24-2024 End: 46-61-7173plhebctdzajna acetonide (Kenalog-40) injection 40 mgStart: 06-24-2024 End: 94-58-9933kobimd 40 mg by intramuscular injection once40 mg, Intramuscular, Once, On Sat06/24/24 at 1430, For 1 doseVitamin B 12 TABS (10 sources)Vitamin B 12 TABS TAKE 1 TABLET DAILY. Quantity: 0 Refills: 0 Ordered: 26-Apr-2021 DO ActiveVitamin C 2000 MG TABS (10 sources)Vitamin C 2000 MG TABS Take as directed Quantity: 0 Refills: 0 Ordered: 26-Apr-2021 DO ActiveVitamin D3 TABS (10 sources)Vitamin D3 TABS take 80,000 unints as directed. Quantity: 0 Refills: 0 Ordered: 26-Apr-2021 DO Active Problems Active Problems Problem ClassificationProblemDateDocumented DateEpisodic/ChronicAsthma (20 sources)Asthmatic bronchitis; Translations: [Unspecified asthma, uncomplicated]Onset: 620322-33-5067BxnrmqrAuufxhb dysrhythmias (20 sources)Unspecified atrial fibrillation; Translations: [Permanent atrial fibrillation]Onset: 881730-44-4933TihkfjqSdeixxaipdf and hemorrhagic disorders (20 sources)Thrombocytopenic disorder; Translations: [Thrombocytopenia, unspecified]Onset: 549524-56-0853JshccyeTmlfhgtzma associated with dizziness or vertigo (20 sources)Cochlear hydrops of right inner ear; 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, right ear]Onset: 420575-86-5668SwrrxmeZvxrjdbnhg and other anemia (1 source)Anemia, unspecified; Translations: [ANEMIA UNSPECIFIED]Onset: 57-38-7493ShjuhfkqYckzgzpspglwbg and diverticulitis (2 sources)Diverticular disease; Translations: [Diverticulosis of intestine, part unspecified, without perforation or abscess without bleeding]09-28-2024 ChronicEsophageal disorders (20 sources)Gastroesophageal reflux disease; Translations: [Gastro-esophageal reflux disease without esophagitis]Onset: 000061-07-9049PilbznhAeyrmlwug hypertension (20 sources)Essential hypertension; Translations: [Unspecified essential hypertension]Onset: 417053-55-4403NtsfrncYsyzotahtyxos symptoms and ill- defined conditions (20 sources)Urge incontinence of urine; Translations: [Urge incontinence]Onset: 423475-43-9017PaafqdpTzmxv valve disorders (20 sources)Mitral valve prolapse; Translations: [Nonrheumatic mitral (valve) prolapse]Onset: 072030-72-6750AsbfuhpZlwmjmhfamrk with complications and secondary hypertension (1 source)Hypertensive heart disease with heart failure; Translations: [HTN HEART DISEASE W/HEART FAIL]Onset: 86-60-1982KamqsztTrgkuwdozl disorders (20 sources)Atrophy of vagina; Translations: [Postmenopausal atrophic vaginitis] Onset: 900636-70-0966WsnuhckOreknmh (4 sources)Candidiasis of the esophagus; Translations: [Candidal esophagitis] 82-87-1956JxaluuikMsmpvipaymiu breast conditions (20 sources)Fibrocystic disease of breast; Translations: [Diffuse cystic mastopathy of unspecified breast]Onset: 922763-30-6921DrpgnarIaxsayuythd deficiencies (20 sources)Vitamin D deficiency, unspecified; Translations: [Vitamin D deficiency]Onset: 120787-83-6663ByptxnzNvmrcwzosystdc (20 sources)Osteoarthritis of right knee joint; Translations: [Unilateral primary osteoarthritis, right knee]Onset: hronic Osteoporosis (20 sources)Senile osteoporosis; Translations: [Age-related osteoporosis without current pathological fracture]Onset: 406164-35-2032WewcikdUkxll aftercare (9 sources)Encounter for therapeutic drug level monitoring; Translations: [ENCOUNTER FOR THERAPEUTIC DRUG LEVEL MONITORING]Onset: 91-89-3060NfhpgzrdUsmzh aftercare (1 source)Long-term current use of anticoagulant; Translations: [shelter (current) use of anticoagulants]Onset: 09-96-8421YdmpfvpbVdxdz and unspecified benign neoplasm (2 sources)Polyp of colon; Translations: [Polyp of colon]79-45-0960XxddidqoZcnkc connective tissue disease (8 sources)Full thickness rotator cuff tear; Translations: [Complete rotator cuff tear or rupture of right shoulder, not specified as traumatic]01-02-2024 EpisodicOther connective tissue disease (2 sources)Cyst ; Translations: [Other specified soft tissue disorders] 30-01-3009ItceqmpyYkryl diseases of kidney and ureters (2 sources)Hyperparathyroidism due to renal insufficiency; Translations: [Secondary hyperparathyroidism of renal origin]25-31-7834EcxqgjzFpsvi diseases of veins and lymphatics (20 sources)Lymphedema; Translations: [Lymphedema, not elsewhere classified] Onset: 381030-76-0803KzpuoygBhbva diseases of veins and lymphatics (1 source)Lymphedema, not elsewhere classified; Translations: [Lymphedema, not elsewhere classified]Onset: 16-51-4579SsoypxpIluru ear and sense organ disorders (20 sources)Sensorineural hearing loss, unilateral, left ear, with unrestricted hearing on the contralateral side; Translations: [Sensorineural hearing loss, unilateral]Onset: 903752-18-5659FnfjibwEanbz ear and sense organ disorders (2 sources)Impacted cerumen in right ear; Translations: [Impacted cerumen, right ear]88-42-6789AdbmugkgZuvcw endocrine disorders (4 sources)Secondary hyperparathyroidism, not elsewhere classified; Translations: [SECONDARY HYPERPARATHYROIDISM NEC]Onset: 14-75-4734EhkqofuQxnxj endocrine disorders (20 sources)Hyperparathyroidism; Translations: [Hyperparathyroidism, unspecified]Onset: 070630-03-9173VswcldfUyzlv endocrine disorders (4 sources)Primary hyperparathyroidism; Translations: [Primary hyperparathyroidism]Onset: 447560-53-5311CqypyqzYxbbg endocrine disorders (2 sources)Secondary hyperparathyroidism; Translations: [Secondary hyperparathyroidism, not elsewhere classified]34-57-5135BqkmgkgVfved gastrointestinal disorders (5 sources)Intestinal malabsorption, unspecified; Translations: [INTESTINAL MALABSORPTION UNS]Onset: 76-57-4860RqfjezjLaywh gastrointestinal disorders (20 sources)Abnormal intestinal absorption; Translations: [Intestinal malabsorption, unspecified]Onset: 922969-30-8473OzryzirXjyxk gastrointestinal disorders (1 source)Bariatric surgery status; Translations: [BARIATRIC SURGERY STATUS] Onset: 26-82-4475LpvcjusdExyog gastrointestinal disorders (2 sources)History of bariatric surgical procedure; Translations: [Bariatric surgery status]37-94-2657FozijtewYndqg injuries and conditions due to external causes (2 sources)Local infection of wound; Translations: [Other injury of unspecified body region, initial encounter]45-25-3861WhwtdrizHwzeo nervous system disorders (20 sources)Carpal tunnel syndrome; Translations: [Carpal tunnel syndrome, unspecified upper limb]Onset: 943192-19-3720FcetxqiOrpkj nervous system disorders (20 sources)Piriformis syndrome; Translations: [Lesion of sciatic nerve, unspecified lower limb]Onset: 968477-14-9192CznlgdhFsngo nervous system disorders (4 sources)Bilateral carpal tunnel syndrome; Translations: [Carpal tunnel syndrome, bilateral upper limbs]13-00-1005LtnmhatWwtgx non-traumatic joint disorders (20 sources)Derangement of left shoulder joint; Translations: [Other specific joint derangements of left shoulder, not elsewhere classified]Onset: 02-08-2017 49-50-4021YyoqaanKjdni non-traumatic joint disorders (20 sources)Monoarthritis; Translations: [Monoarthritis, not elsewhere classified, unspecified site]Onset: 527828-06-0268YsnbsmcOjpbo nutritional; endocrine; and metabolic disorders (1 source)Hypomagnesemia; Translations: [HYPOMAGNESEMIA]Onset: 66-31-2807Npjdiha Other nutritional; endocrine; and metabolic disorders (1 source)Morbid (severe) obesity due to excess calories; Translations: [MORBID SEVERE OBES D/T EXCESS FERNANDO]Onset: 43-27-0927RpxjjabGjgrs nutritional; endocrine; and metabolic disorders (3 sources)Severe obesity; Translations: [Morbid obesity]ChronicOther nutritional; endocrine; and metabolic disorders (20 sources)Hypercalcemia; Translations: [Hypercalcemia]Onset: 09-03-2017 41-48-7533TbthhrlLfdbi nutritional; endocrine; and metabolic disorders (20 sources)Intestinal disaccharidase deficiency; Translations: [Lactose intolerance, unspecified]Onset: 274530-84-7895XzlsmlkKpmtp nutritional; endocrine; and metabolic disorders (20 sources)Morbid obesity; Translations: [Morbid (severe) obesity due to excess calories]Onset: 400813-55-6615HsilddcEfnvy nutritional; endocrine; and metabolic disorders (2 sources)Hypomagnesemia; Translations: [Hypomagnesemia]78-70-8988RnsucebBmmlk nutritional; endocrine; and metabolic disorders (2 sources)Obesity caused by energy imbalance; Translations: [Morbid (severe) obesity due to excess calories]58-62-1230RzexnvdTegon nutritional; endocrine; and metabolic disorders (2 sources)Body mass index (BMI) 40.0-44.9, adult; Translations: [Body mass index (BMI) 40.0-44.9, adult (Multi)]Onset: 04-22-0060QmlwuahVpwhj nutritional; endocrine; and metabolic disorders (2 sources)Body mass index (BMI) 39.0-39.9, adult; Translations: [Body mass index (BMI) 39.0-39.9, adult]Onset: 81-21-0416QrgrbozDlzjj nutritional; endocrine; and metabolic disorders (2 sources)Obesity; Translations: [Obesity, unspecified]89-68-2044PhcmcuqDzjnp screening for suspected conditions (not mental disorders or infectious disease) (6 sources)Patient encounter status; Translations: [Encounter for screening mammogram for malignant neoplasm of breast]Onset: 396486-90-6707Aalokbth Other upper respiratory disease (20 sources)Seasonal allergy; Translations: [Other seasonal allergic rhinitis] Onset: 274427-15-8773HoitadxNstju upper respiratory infections (20 sources)Chronic sinusitis; Translations: [Other chronic sinusitis]Onset: 264185-01-6774PckdqxbGblla upper respiratory infections (15 sources)Acute sinusitis; Translations: [Acute sinusitis, unspecified] 46-86-1760IuuzkjeuAlenqcwfjp disorders (not diabetes) (2 sources)Chronic pancreatitis; Translations: [Other chronic pancreatitis] 43-42-6939IslghaaDvuotpnn codes; unclassified (13 sources)Sleep apnea; Translations: [Unspecified sleep apnea]Onset: 183989-97-7032BzxtgstKmbkkrzk codes; unclassified (20 sources)Obstructive sleep apnea syndrome; Translations: [Obstructive sleep apnea (adult) (pediatric)]Onset: 214400-36-3442OyqhgonMnextucg codes; unclassified (2 sources)Obstructive sleep apnea (adult) (pediatric); Translations: [Obstructive sleep apnea (adult) (pediatric)]Onset: 62-04-0631PtywnsvIageocrj codes; unclassified (3 sources)Localized edema; Translations: [LOCALIZED EDEMA]Onset: 11-19-2021 EpisodicResidual codes; unclassified (2 sources)Other problems related to lifestyle; Translations: [Other problems related to lifestyle]53-81-0399FiaxpoeaPpppxzg disorders (20 sources)Non-toxic multinodular goiter; Translations: [Nontoxic multinodular goiter]Onset: 684110-96-2786DpdjppbGdxdawnihipg (2 sources)DXOnset: 99-11-7720Lnufkgmgfvvy (5 sources)Chronic atrial fibrillation, unspecified; Translations: [CHRONIC ATRIAL FIBRILLATION UNSPEC]Onset: 35-34-2410Lqxmqyxbxlpa (6 sources)Permanent atrial fibrillation; Translations: [PERMANENT ATRIAL FIBRILLATION]Onset: 01-14-4789Xhazdwfgcwpk (2 sources)Thyroid ProblemOnset: 07-23-8306Iksundxtcfes (1 source)Drug therapy punmzfr18-62-1444Bhodtww tract infections (8 sources)Acute cystitis; Translations: [Acute cystitis without hematuria] 67-70-1192Wnerprko Past or Other Problems Problem ClassificationProblemDateDocumented DateEpisodic/ChronicAcquired foot deformities (20 sources)Acquired pes planus of left foot; Translations: [Flat foot [pes planus] (acquired), left foot]Onset: 896482-06-3210YnbksjzzXlblwpndbw and other anemia (3 sources)Iron deficiency anemia, unspecified; Translations: [IRON DEFICIENCY ANEMIA UNSPECIFIED]Onset: 83-04-2059OtufuuzhBwpdivzxem and other anemia (20 sources)Anemia; Translations: [Anemia, unspecified]Onset: 10-25-2022 Resolved: 492145-06-0965QzqvlbssUygngpgebh and other anemia (20 sources)Iron deficiency anemia; Translations: [Iron deficiency anemia, unspecified]Onset: 527159-89-3367CvvzymtpQ Codes: Fall (1 source)Fall on same level from slipping, tripping and stumbling with subsequent striking against unspecified object, initial encounter; Translations: [FALL SAME LVL SLIP STRK UNS OBJ INT]Onset: 52-09-5873VfphjwchWmoxq and electrolyte disorders (20 sources)Hypokalemia; Translations: [Hypopotassemia]Onset: 61-18-4483Xbrpgnzy Genitourinary symptoms and ill-defined conditions (20 sources)Dysuria; Translations: [Dysuria]Onset: 688972-46-2475Lkfgxdhr Malaise and fatigue (20 sources)Other fatigue; Translations: [Fatigue]Onset: 30-57-7884NxhgmailTdgl disorders (20 sources)Mood disordersOnset: 10-29-2023 Resolved: 224309-94-0760Cjbqvyktifb deficiencies (20 sources)Vitamin B-complex deficiency ; Translations: [Vitamin B deficiency, unspecified]Onset: 910072-64-2594RitifxlpTedfi aftercare (4 sources)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; Translations: [LONG-TERM (CURRENT) USE OF ANTICOAGULANTS]Onset: 06-16-6014PlhkqjxaDyjqf aftercare (20 sources)Drug therapy finding; Translations: [Long-term (current) use of other medications]Onset: 462256-81-8371OyaaqcmxUqhed aftercare (1 source)Other intermediate school teacher (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; Translations: [OTH CLINICAL REHABILITATION COORDINATOR CURRENT DRUG THERAPY]Onset: 50-13-3309UqqxmtpoUtxou aftercare (1 source)shelter (current) use of aspirin; Translations: [CLINICAL REHABILITATION COORDINATOR CURRENT USE OF ASPIRIN]Onset: 65-44-2106EtmdhsauUvgjy aftercare (20 sources)Taking high risk medication; Translations: [Other intermediate school teacher (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]Onset: 12-27-2022 Resolved: 104945-26-0011QjsjqnmiWpcrw bone disease and musculoskeletal deformities (20 sources)Disorder of skeletal system; Translations: [Disorder of bone, unspecified]Onset: 899159-64-5616ZeyflcnyPiflr connective tissue disease (4 sources)Pain in left foot; Translations: [PAIN IN LEFT FOOT]Onset: 09-15-2021 EpisodicOther connective tissue disease (20 sources)Spasm of cervical paraspinous muscle; Translations: [Other muscle spasm]Onset: 161478-58-9448JsvrmwsaUufmn connective tissue disease (20 sources)Acquired trigger finger; Translations: [Trigger finger, unspecified finger]Onset: 271127-53-6848GcovmtmnJvrft connective tissue disease (20 sources)Cramp in limb; Translations: [Cramp and spasm]Onset: 05-03-2008 31-38-0628HdxkznqyWerbo connective tissue disease (20 sources)Decrease in height; Translations: [Loss of height]Onset: 07-04-2015 47-03-7590AiwefttoAvwla connective tissue disease (20 sources)Left achilles tendonitis; Translations: [Achilles tendinitis, left leg]Onset: 509627-40-8305AckvnqtoCaqhq connective tissue disease (20 sources)Bilateral plantar fasciitis; Translations: [Plantar fascial fibromatosis]Onset: 523333-27-9228JwpufxtsBestm diseases of veins and lymphatics (20 sources)Peripheral venous insufficiency; Translations: [Venous insufficiency (chronic) (peripheral)]Onset: 142994-31-5332MprustlfPevjp ear and sense organ disorders (20 sources)Tinnitus of left ear; Translations: [Tinnitus, left ear]Onset: 274242-69-7521OjzeghfeJbfwg gastrointestinal disorders (20 sources)History of bypass of stomach; Translations: [Bariatric surgery status]Onset: 393610-55-2417KaiucmobRecko injuries and conditions due to external causes (1 source)Other specified injuries of head, initial encounter; Translations: [OTH SPEC INJURIES HEAD INITIAL ENC]Onset: 63-04-3845VczwpgwmOjcth liver diseases (20 sources)Aspartate aminotransferase serum level raised; Translations: [Elevated AST (SGOT)]Onset: 646863-69-1148MazlinubJhjbz liver diseases (20 sources)Elevated levels of transaminase & lactic acid dehydrogenase; Translations: [Elevated levels of transaminase & lactic acid dehydrogenase] Onset: 830464-11-2790WkhbqbquArdou non-traumatic joint disorders (20 sources)Shoulder pain; Translations: [Pain in right shoulder]Onset: 450293-00-6377AcxsserzIkaqs nutritional; endocrine; and metabolic disorders (20 sources)Body mass index 40+ - severely obese; Translations: [Morbid obesity] Onset: 05-13-2023 Resolved: 377649-97-8062YphwwqzMuhnd nutritional; endocrine; and metabolic disorders (20 sources)Body mass index 30+ - obesity; Translations: [Body mass index (BMI) 39.0-39.9, adult]Onset: 05-13-2023 Resolved: 044432-25-4508VchgwnkDdini skin disorders (9 sources)History of cellulitis; Translations: [Personal history of diseases of skin and subcutaneous tissue] Resolved: 90-54-2555DempaysyNskywv media and related conditions (2 sources)Disorder of left Eustachian tube; Translations: [Unspecified Eustachian tube disorder, left ear]77-80-4231KodlfjfaKrldelct codes; unclassified (20 sources)Bilateral lower limb edema; Translations: [Edema]Onset: 12-27-2022 [id number] codes; unclassified (20 sources)Edema of lower extremity; Translations: [Localized edema]Onset: 12-05-2022 Resolved: [id number] and history of mental health and substance abuse codes (20 sources)Ex-smoker; Translations: [Personal history of tobacco use]Onset: [id number] and subcutaneous tissue infections (20 sources)Cellulitis; Translations: [Cellulitis and abscess of unspecified sites]Onset: 11-19-2021 Resolved: [id number]; intervertebral disc disorders; other back problems (20 sources)Dorsalgia, unspecified; Translations: [Right cervical root neuropathy]Onset: 83-27-9861LynlelwiEqzzkdw disorders (20 sources)Disorder of thyroid gland; Translations: [Disorder of thyroid, unspecified]Onset: [id number]chbb (3 sources)Onset: 05-13-2023 Resolved: [id number] (2 sources)History of bypass of yqnksbw19-10-0892 Results Test NameValueInterpretationReference RangeFacilityALL CBC WITH AUTO DIFFon 09-08-8850WUFVNQTCO ABSOLUTE AUTO0.0NOMD HealthcareBasophils/100 WBC (Bld)0.7 % 0.2 - 2.0 %[facility] CenterEosinophils/100 WBC (Bld)1.5 %0.9 - 7.0 %[facility] CenterErythrocyte distribution width (RBC) [Ratio]14.0 %11.0 - 15.0 %[facility] CenterHematocrit (Bld) [Volume fraction]36.0 %36.0 - 48.0 %[facility] Hemoglobin (Bld) [Mass/Vol]11.2 g/dLLow12.0 - 16.0 g/dLSaint John's Breech Regional Medical CenterIMMATURE GRANULOCYTES ABS AUTO0.01NOCapital Region Medical CenterImmature granulocytes/100 WBC (Bld)0.2 % 0.0 - 0.5 %[facility] Medical CenterInterpretation and review of laboratory results AbnormalSaint John's Breech Regional Medical CenterLYMPHOCYTES ABSOLUTE AUTO1.2NOMS [facility] Lymphocytes/100 WBC (Bld)18.9 %Low20.5 - 60.0 %[facility] HealthcareH (RBC) [Entitic mass]28.7 pg26.7 - 34.0 pgMissouri Southern HealthcareHC (RBC) [Mass/Vol]31.1 g/dL29.9 - 35.2 g/dLMissouri Southern HealthcareV (RBC) [Entitic vol]92.3 fL81.0 - 99.0 fLSaint John's Breech Regional Medical CenterMONOCYTES ABSOLUTE AUTO0.4NOMD HealthcareMonocytes/100 WBC (Bld)6.4 % 1.7 - 12.0 %[facility] CenterNEUTROPHILS ABSOLUTE AUTO4.4N[facility] Neutrophils/100 WBC (Bld)72.3 %43.0 - 75.0 %[facility] Medical CenterPlatelet mean volume (Bld) [Entitic vol]10.7 fL9.5 - 13.5 [facility] EO #0.1[facility] TB FIL416JmsRWWRThree Rivers Healthcare RBC3.90LowThree Rivers Healthcare WBC6.1[facility] HealthcareCLINISYNCNTexas Health [facility] [place] Informationon [id number] Kaufman, ARRT 01/01/2025 3:05 PM L Inj/Asp: R subacromial bursa on 12/31/2024 9:39 AM Indications: pain Details: 25 G needle, ultrasound-guided Medications: 1 mL betamethasone acetate-betamethasone sodium phosphate 6 (3-3) MG/ML Consent was given by the patient. [facility] Cent[facility] Barron, [facility] [[email or web address]] 01/01/2025 3:05 PM L Inj/Asp: R glenohumeral on 12/31/2024 9:39 AM Indications: pain Details: 25 G needle, ultrasound-guided Medications: 1 mL betamethasone acetate-betamethasone sodium phosphate 6 (3-3) MG/ML Consent was given by the patient. [facility] Urineon 25-11-7404Kglobprw identified Cx Nom (U) Microbiology PROCEDURE: Urine Culture [R1] SOURCE: U CleanCatch BODY SITE: COLLECTED DATE/TIME: 12/02/2024 10:03 EDT RECEIVED DATE/TIME: 12/02/2024 19:04 EDT START DATE/TIME: 12/02/2024 19:04 EDT FREE TEXT SOURCE: Jayce TIJERINA, Aditi Eduardo MD, Aditi Lorenzo FINAL REPORTS Final Report [] Verified Date/Time: 12/04/2024 10:14 EDT 300 cfu/ml Mixed skin contaminants Performing Locations R1: This test was performed at: [facility], [address] [place] [address], [phone]- , , DnaasyHpadrlKettering Health Greene MemorialComment on above:Performed By: #### [id number] #### [facility] [address] [place] [id number] Visit Summaryon [id number] Visit Summary Ambulatory Visit Summary TERELL, MARLA A :1955 Visit Date:12/02/2024 Ambulatory Visit Instructions Your Diagnosis Atrophic vaginitis Urge incontinence History of UTI Incomplete bladder emptying Microhematuria Anticoagulated Your Care Team Attending Physician - Jayce TIJERINA, Aditi Lorenzo Primary Care Physician - NOEL FARNSWORTH MD This Is Your Medications List estradiol topical (Estrace 0.1 mg/g Cream) Contact prescribing physician if questions or concerns ascorbic acid (Vitamin C 1000 mg oral tablet) azelastine nasal (azelastine hydrochloride 137 mcg spray) calcium-vitamin D (Citracal Maximum + D oral tablet) cholecalciferol (Vitamin D3 50,000 intl units oral capsule) copper gluconate (copper gluconate 2 mg oral tablet) ferrous sulfate (ferrous sulfate 325 mg Tab) lactobacillus acidophilus (Acidophilus Probiotic Blend) magnesium oxide (magnesium oxide 400 mg Tab) metoprolol (Lopressor 25 mg oral tablet) multivitamin (B Complex 100) multivitamin (Multi Vitamin+) multivitamin with minerals (Elderberry Gummies with Vitamin C and Zinc) omega-3 polyunsaturated fatty acids (Allegany-3 Fish Oil 1200 mg oral capsule) potassium bicarbonate (potassium bicarbonate 20 mEq oral tablet, effervescent) spironolactone (spironolactone 25 mg Tab) torsemide (torsemide 20 mg Tab) vonoprazan (Voquezna 20 mg oral tablet) warfarin (warfarin 2.5 mg Tab) zinc acetate Procedures Performed Colonoscopy, Gastric bypass, Hemorrhoid, Hernia, Tonsillectome. Discharge Vitals Height 164 cm Height 65 in Weight 108.0 kg Weight 238.099 lb BMI 40.15 What to do next Scheduled Follow-Up Appointments Saturday2025 9:00 AM EDT With: Nona Barahona PA-C Where: [facility] [address] [address]- You Need to Schedule the Following Appointments Follow Up with Jayce TIJERINA, Aditi Lorenzo, URL, URO When: Where: Medications What How Much When Instructions Unchanged estradiol topical (Estrace 0.1 mg/ g Cream) See instructions Apply pea-sized amount around urethra and inside vagina 3 times per week at night for one month then 2 times per week after for maintenance. Unchanged ascorbic acid (Vitamin C 1000 mg oral tablet) 1 Tablets By Mouth Every day Contact prescribing physician if questions or concerns Unchanged azelastine nasal (azelastine hydrochloride 137 mcg spray) 1 Sprays Contact prescribing physician if questions or concerns Unchanged calcium-vitamin D (Citracal Maximum + D oral tablet) 1 Tablets By Mouth 2 times a day Contact prescribing physician if questions or concerns Unchanged cholecalciferol (Vitamin D3 50,000 intl units oral capsule) 1 Capsules Contact prescribing physician if questions or concerns Unchanged copper gluconate (copper gluconate 2 mg oral tablet) 1 Tablets By Mouth Every day Contactprescribing physician if questions or concerns Unchanged ferrous sulfate (ferrous sulfate 325 mg Tab) 1 Tablets Contact prescribing physician if questions or concerns Unchanged lactobacillus acidophilus (Acidophilus Probiotic Blend) By Mouth Every day Contact prescribing physician if questions or concerns Unchanged magnesium oxide (magnesium oxide 400 mg Tab) By Mouth Every day Contact prescribing physician if questions or concerns Unchanged metoprolol (Lopressor 25 mg oral tablet) 1 Tablets By Mouth Every day Contact prescribingphysician if questions or concerns Unchanged multivitamin (B Complex 100) Contact prescribing physician if questions or concerns Unchanged multivitamin (Multi Vitamin+) Contact prescribing physician if questions or concerns Unchanged multivitamin with minerals (Elderberry Gummies with Vitamin C and Zinc) Chewed Every day Contact prescribing physician if questions or concerns Unchanged omega-3 polyunsaturated fatty acids (Allegany-3 Fish Oil 1200 mg oral capsule) By Mouth 3 times a day Contact prescribing physician if questions or concerns Unchanged potassium bicarbonate (potassium bicarbonate 20 mEq oral tablet, effervescent) By Mouth Every day Contact prescribing physician if questions or concerns Unchanged spironolactone (spironolactone 25 mg Tab) 2 Tablets Contact prescribing physician if questions or concerns Unchanged torsemide (torsemide 20 mg Tab) 1 Tablets Contact prescribing physician if questions or concerns Unchanged vonoprazan (Voquezna 20 mg oral tablet) By Mouth Every day Contact prescribing physician if questions or concerns Unchanged warfarin (warfarin 2.5 mg Tab) 1 Tablets Contact prescribing physician if questions or concerns Unchanged zinc acetate By Mouth 3 times a day Contact prescribing physician if questions or concerns Allergies chlorzoxazone (Hives) gabapentin (Nausea, Hives) Problems Ongoing - Any problem that you are currently receiving treatment for. AF (atrial fibrillation) Anticoagulated Atrophic vaginitis History of (more content not included)...NormalFulton County [facility] Center Urinalysis with Microon 37-40-0275Rwwsi (U)Light-YellowNormalYellowFulton County Health CenterComment on above:Order Comment: Order added by Discern Expert Result Comment: Microscopic readings are only performed on those samples that meet specific criteria set forth by [facility]. Performed By: #### [id number] #### [facility] [address], [place] [address]Aoaoghg (U) [Mass/Vol]NegativeNormalNegativeFulton County Health CenterComment on above:Order Comment: Order added by Vivek Expert Performed By: #### [id number] #### [facility] [address], [place] [address]Jjjirsx Ql (U)NegativeNormKettering Health Preble Comment on above:Order Comment: Order added by Vivek ExpertPerformed By: #### [id number] #### [facility] [address], [place] [address]FS BloodNegativeNormalNegFort Hamilton Hospital Comment on above:Order Comment: Order added by Vivek ExpertPerformed By: #### [id number] #### [facility] [address], [place] [address]VR ClarityClearNormalClearFulton County Health CenterComment on above:Order Comment: Order added by Vivek ExpertPerformed By: #### [id number] #### [facility] [address], [place] [address]LN Leuk EstNegativeNormalNegFort Hamilton Hospital Comment on above:Order Comment: Order added by Vivek ExpertPerformed By: #### [id number] #### [facility] [address], [place] [address]BB NitriteNegativeNormalNegFort Hamilton Hospital Comment on above:Order Comment: Order added by Vivek ExpertPerformed By: #### [id number] #### [facility] [address], [place] [address]PK pH5.5Invalid Interpretation Code5.0-9.0F[facility] County Health CenterComment on above:Order Comment: Order added by Discern ExpertPerformed By: #### [id number] #### [facility] [address], [place] [address]GM ProteinNegativeNormalNegFort Hamilton Hospital Comment on above:Order Comment: Order added by Discern ExpertPerformed By: #### [id number] #### [facility] [address], [place] [address]XK Spec Grav1.009Invalid Interpretation Code1.005-1.030F[facility] County Health CenterComment on above:Order Comment: Order added by Vivek ExpertPerformed By: #### [id number] #### [facility] [address] [place] [id number] UrobilinogenNegativeNormalNegFort Hamilton HospitalComment on above:Order Comment: Order added by Vivek ExpertPerformed By: #### [id number] #### [facility] [address], [place] [address]Bbrnhrednioq (U) [Mass/Vol]NegativeNormalNegFort Hamilton HospitalComment on above:Order Comment: Order added by Vivek Expert Performed By: #### [id number] #### [facility] [address], [place] [address]Bvvtvqjtda with Micro SPon [id number] Spec DescClean Catch NormalFulton County Health CenterComment on above:Performed By: #### [id number] #### [facility] [address], [place] [address]Zdakooz Office/Clinic Noteon [id number] Office/Clinic NoteUrology Office/Clinic Note Chief Complaint 3 month F/U HPI Staff 3 mo f/u to starting Estrace cream for A.V., UTI sx, and UUI. Needs clean catch UA today. PVR 114 cc. Pt. was started on Estrace x2 a week at last visit Pt. states she had a UTI last month and was given Cipro by PCP BBSQ 14 Pt. having urge incontinence, occasionally Pt. having a burning feeling right before she urinates, occasionally Pt. denies having gross hematuria Pt. denies having abd pain Pt. denies having flank pain History of Present Illness Tests reviewed: UA, PVR I have reviewed the previous health record information and history for this patient from Dr. Eduardo. I have reviewed and verified the staff HPI to be accurate for this encounter. Review of Systems PHQ Score Initial Depression Screen Score: 0 SCORE ROS - Provider Constitutional: denies weight loss, denies hot flashes. Eyes: denies eye problems. Gastrointestinal: denies nausea, denies vomiting. Cardiovascular: denies chest pain or angina. Integumentary: no dryness Musculoskeletal: denies musculoskeletal symptoms. ENMT: denies otolaryngeal symptoms. Respiratory: no shortness of breath. Heme/Lymph: denies easy bleeding tendency, denies easy bruising tendency. Psychiatric: no confusion, no anxiety. Genitourinary: See HPI. Physical Exam Vitals & Measurements HT: 65 in HT: 164 cm WT: 238.099 lb WT: 108.0 kg BMI: 40.15 General Appearance: alert, no distress, well nourished, well developed adult. Assessment/Plan 69 yo F, originally referred by Dr Farnsworth d/t dysuria, here for f/u to starting estrace cream. 1. Atrophic vaginitis (N95.2: Postmenopausal atrophic vaginitis) Started Estrace cream at prior OV. Cream has helped with how [urine] feels when it comes out. Declines changes at this time Follow up 6 mos or sooner if needed. Pt understands and agrees with plan. -Cont cream 2. Urge incontinence (N39.41: Urge incontinence) BBS 14 (16). Urgency has improved since prior OV. -Cont estrace cream -Timed voids -Bladder emptying maneuvers -Cysto in future if sx worsen 3. History of UTI (Z87.440: Personal history of urinary (tract) infections) UCx: 09/16/24 - >100k E. coli (HTRAX) Treated for UTI last month. Had malodorous urine. Treated by PCP with Cipro. Abx did improve sx. Started cranberry supplement one month ago, takes 3x/wk, was told to do this since she is on a BT. Recommended pt start daily D-mannose supplement as shouldn't affect warfarin but recommended confirmingwith Coumadin clinic. -Cont cranberry, start D-mannose (confirm with coumadin clinic), cont estrace cream 4. Incomplete bladder emptying (R33.9: Retention of urine, unspecified) PVR 114 cc. Counseled on bladder emptying maneuvers. -Timed voids -Bladder emptying maneuvers 5. Microhematuria (R31.29: Other microscopic hematuria) UA from [facility]: 08/07/24 - + blood (trace) and moderate leuks 08/17/24 - neg for blood and leuks UA shows small blood wo signs of infection. Denies gross hematuria. Will send urine for micro UA and cx to see if true microhematuria. If so, proceed with hematuria workup. Asymptomatic microscopic hematuria: > 3 RBCs/HPF in absence of obvious benign cause, such as infection, menstruation, vigorous exercise, medical renal disease, viral illness, trauma or recent urological procedures. Risk factors for malignancy include male gender, age > 35 years, past/current tobacco use, exposure to chemicals/dyes (benzenes or aromatic amines) or carcinogenic agents, analgesic abuse, hx gross hematuria, urologic disease, LUTS, pelvic radiation, and chronic UTIs/indwellingfoley. -Send urine for micro UA and cx, if true hematuria, proceed with cysto, CTU vs MARISA based on RBCs 6. 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 Afib. Elevated risk for periop complications in the future. Follow-up With When Contact Information Jayce TIJERINA, Aditi Lorenzo, URL, URO Additional Instructions: 6 mos with ESTUARDO Patient Education Hematuria, Adult I, Tiera Glass, personally scribed for Dr. Eduardo on 12/02/2024 09:28:02. . Documentation recorded by the scribe, Tiera Glass, accurately reflects the services(s) I performed and decisions made by me. Authenticated by Dr. Eduardo on 12/02/2024 09:32:03. Problem List/Past Medical History Ongoing AF (atrial fibrillation) Anticoagulated Atrophic vaginitis History of UTI Incomplete bladder emptying Microhematuria Morbid obesity with BMI of 40.0-44.9, adult Morbid obesity with BMI of 45.0-49.9, adult Urge incontinence Historical No qualifying data Procedure/Surgical History Colonoscopy, Gastric bypass, Hemorrhoid, Hernia, Tonsillectome. Medications Acidophilus Probiotic Blend, Oral, Daily azelastine hydrochloride 137 mcg spray, 1 spray(s) B Complex 100 Citracal Maximum + D oral tablet, 1 tab(s), Oral, BID copper gluconate 2 mg or (more content not included)...[facility] MemorialComment on above:Result Comment: Electronically Signed By: Jayce TIJERINA, Aditi Clark.br\Date and Time Signed: 12/02/24 09:33EDTNo Panel Informationon [id number] EPIDERMIDIS, HAEMOLYTICUS, LUGDUNENSIS, SAPROPHYTICUS ([id number] HealthcareSTAPHYLOCOCCUS EPIDERMIDIS, HAEMOLYTICUS, LUGDUNENSIS, SAPROPHYTICUS (URINANot detectedNOMS HealthcareURINARY TRACT INFECTION (HTRX)on 48-24-1966GJKVHZNYROSOB ALQJPHGN4BKPJ HealthcareACINETOBACTER BAUMANIINot detectedNOMS HealthcareCANDIDA ALBICANS, PARAPSILOSIS, IYFAVFDKBT2HGKT HealthcareCANDIDA ALBICANS, PARAPSILOSIS, TROPICALISNot detectedNOMS Healthcare ALCIDES [id number] HealthcareCANDIDA GLABRATANot detectedNOMS Healthcare ALCIDES GTBXQV1KLBX HealthcareCANDIDA KRUSEINot detectedNOMS Healthcare CITROBACTER RAMJKGVR7YRZW HealthcareCITROBACTER FREUNDIINot detectedNOMS HealthcareDFR (A1, A5), SUL (1,2)15.954AbnormalNOMS HealthcareDFR (A1, A5), SUL (1,2)DetectedAbnormalNOMS HealthcareENTEROBACTER AEROGENES, DPZDXFQ3PSIJ HealthcareENTEROBACTER AEROGENES, CLOACAENot detectedNOMS HealthcareENTEROCOCCUS FAECALIS, FXIRNAL1AMKF HealthcareENTEROCOCCUS FAECALIS, FAECIUMNot detectedNOMS HealthcareESCHERICHIA COLI16.796AbnormalNOMS HealthcareESCHERICHIA COLIDetected AbnormalNOMS HealthcareInterpretation and review of laboratory resultsAbnormal NOMS HealthcareKLEBSIELLA PNEUMONIAE, UJDRDTU4MNAK HealthcareKLEBSIELLA PNEUMONIAE, OXYTOCANot detectedNOMS HealthcareMORGANELLA DINNJUOK7JJEA HealthcareMORGANELLA MORGANIINot detectedNOMS HealthcarePROTEUS MIRABILIS, OAAABAVS9JZEX HealthcarePROTEUS MIRABILIS, VULGARISNot detectedNOMS Healthcare PSEUDOMONAS MWRTDGENJU7WYMD HealthcarePSEUDOMONAS AERUGINOSANot detectedNOMS HealthcareSERRATIA SGGZBLIZPC6XQGL HealthcareSERRATIA MARCESCENSNot detectedNOMS HealthcareSTAPHYLOCOCCUS KLGCVM8EWQY HealthcareSTAPHYLOCOCCUS AUREUSNot detectedNOMS HealthcareSTREPTOCOCCUS AGALACTIAE (GROUP B STREP)0N[facility] Healthcare STREPTOCOCCUS AGALACTIAE (GROUP B STREP)Not detectedNOMS HealthcareSTREPTOCOCCUS PYOGENES (GROUP A STREP)0NOMS HealthcareSTREPTOCOCCUS PYOGENES (GROUP A STREP) Not detectedNOMS HealthcareTET B, TET M23.605AbnormalNOMS HealthcareTET B, TET M DetectedAbnormalNOMS HealthcareNOMS HealthcareUrinalysis macro (dipstick) panel (U)on 91-31-2996Ohnvbtpkg, UANegativeNegative - 4(70) +++ mg/dLNOMS Healthcare Blood, UAPositiveNegative - 50 Binh/mcLNOMS HealthcareComment on above:hemo trace Clarity, UACloudyNOMS HealthcareColor, UAAmberNOMS HealthcareGlucose, UANegative Negative - 1999(110) ++++ mg/dLNOMS HealthcareInterpretation and review of laboratory resultsAbnormalNOMS HealthcareKetones, UANegativeNegative - 160(16) ++++ mg/dLNOMS HealthcareLeukocytes, UAPositiveNegative - 500+++ Ashu/mcLNOMS HealthcareComment on above:moderateNitrite, UANegativeNegative - PositiveNOMS HealthcarepH, UA55 - 9NOMS HealthcareProtein, UA3+Negative - 1999(20) ++++ mg/dL NOMS HealthcareSpec Grav, UA1.021 - 1.03NOMS HealthcareUrobilinogen, UA1.00.2 - 12 mg/dLNOMS HealthcareNOMS HealthcareComplete Blood Count Auto Diffon 41-70-1480Vstfevpgf (Bld) [#/Vol]0.1 10*3/uLNormal0.0-0.2[facility] Physician GroupComment on above:Result Comment: PERFORMED BY: [place] [address] PATHOLOGIST [employer] SALES REPRESENTATIVE BROOKE IBANEZ M.D.Performed By: #### CBC #### [place] [address] USABasophils/100 WBC (Bld)0.6 %Normal.The [facility] Physician GroupComment on above:Performed By: #### CBC #### [place] [address] USAEosinophils (Bld) [#/Vol]0.0 10*3/uLNormal0.0-0.45The [facility] Physician GroupComment on above:Performed By: #### CBC #### [place] [address] USAEosinophils/100 WBC (Bld)0.4 %Normal.The [facility] Physician GroupComment on above:Performed By: #### CBC #### [place] [address] USAErythrocyte distribution width (RBC) [Ratio]14.5 %Normal 11.9-15.3The [facility] Physician GroupComment on above:Performed By: #### CBC #### [place] [address] USAHematocrit (Bld) [Volume fraction]39.3 %Lwyifk68.0-46.4The [facility] Physician GroupComment on above:Performed By: #### CBC #### [place] [address] USAHemoglobin (Bld) [Mass/Vol]13.1 g/nELtppur91.8-15.4The [facility] Physician GroupComment on above:Performed By: #### CBC #### [place] [address] USALymphocytes (Bld) [#/Vol]1.4 10*3/uLNormal1.00-4.8The [facility] Physician GroupComment on above:Performed By: #### CBC #### [facility] [address] [place] [address] USALymphocytes/100 WBC (Bld)16.5 %Normal.The [facility] Physician GroupComment on above:Performed By: #### CBC #### [facility] [address] [place] [address] USAMCH (RBC) [Entitic mass]29.3 enCrussy55.7-34.3The [facility] Physician GroupComment on above:Performed By: #### CBC #### [place] [address] USAMCV (RBC) [Entitic vol]88.0 oTUxbkpz88-981Plz [facility] Physician GroupComment on above:Performed By: #### CBC #### [place] [address] USAMean Corpuscular HGB Conc33.3 g/eYLibelg33.0-35.0The [facility] Physician GroupComment on above:Performed By: #### CBC #### [place] [address] USAMonocytes (Bld) [#/Vol]0.4 10*3/uLNormal0.0-0.8The [facility] Physician GroupComment on above:Performed By: #### CBC #### [place] [address] USAMonocytes/100 WBC (Bld)4.8 %Normal.The [facility] Physician GroupComment on above:Performed By: #### CBC #### [place] [address] USANeutrophils (Bld) [#/Vol]6.6 10*3/uLNormal1.8-7.7The [facility] Physician GroupComment on above:Performed By: #### CBC #### [place] [address] USANeutrophils/100 WBC (Bld)77.7 %Normal.The [facility] Physician GroupComment on above:Performed By: #### CBC #### [address] [place] [address] USANRBC%0.1 /100{WBC}Normal0-0.5The [facility] Physician Group Comment on above:Performed By: #### CBC #### [place] [address] USAPlatelet mean volume (Bld) [Entitic vol]8.9 fLNormal 6.3-10.7The [facility] Physician GroupComment on above:Performed By: #### CBC #### [place] [address] USAPlatelets (Bld) [#/Vol]141 10*3/xJMcj404-346Ynp [facility] Physician GroupComment on above:Performed By: #### CBC #### [place] [address] USARBC (Bld) [#/Vol]4.47 10*6/uLNormal3.60-5.00The [facility] Physician GroupComment on above:Performed By: #### CBC #### [place] [address] USAWBC (Bld) [#/Vol]8.5 10*3/uLNormal3.8-11.6The [facility] Physician GroupComment on above:Performed By: #### CBC #### [place] [address] USAWhite Blood Count8.5 [CFU]/mLNormal3.8-11.6The [facility] Physician GroupComment on above:Performed By: #### CBC #### [place] [id number] USAPathology Request for Lab Corpon [id number] Request for Lab CorpNormalThe [facility] Physician GroupComment on above:Order Comment: GI SPECIMENResult Comment: See report. Scanned copy available in EMR. PERFORMED BY: [place] [address] PATHOLOGIST SOLAR SALES REPRESENTATIVE BROOKE IBANEZ M.D.Performed By: #### PATH TO [facility] #### [address] [place] [address] USAProthrombin Time INRon [id number] Coag (PPP) [Relative time]1.4 {INR}NormalThe [facility] Physician GroupComment on above:Order Comment: REDRAW. PREVIOUS SAMPLE QNSResult Comment: INR Therapeutic Range A) Pre- and Peroperative OAT started two weeks before surgery. NOT HIP SURGERY: 1.5 - 2.5 HIP SURGERY: 2 - 3 B) Primary and secondary prevention of venous THROMBOSIS: 2 - 3 C) Active venous thrombosis, pulmonary embolism and prevention of recurrent venous thrombosis: 2 - 3 D) Prevention of arterial thromboembolism including patients with mechanical heart valves: 3 - 4.5 PERFORMED BY: [place] [address] PATHOLOGIST SOLAR SALES REPRESENTATIVE BROOKE IBANEZ M.D.Performed By: #### PT #### [place] [id number] USAPT Coag (PPP) [Time]15.7 sHigh9.0-12.9The [facility] Physician GroupComment on above:Order Comment: REDRAW. PREVIOUS SAMPLE QNSResult Comment: A hematocrit value greater than 55% may lead to inaccurate results in coagulation testing. Patients having hematocrit values >55% require a special collection tube for coagulation studies. Please contact the laboratory at [phone] for redraw instructions.Performed By: #### PT #### [place] [id number] USAAmbulatory Visit Summaryon [id number] Visit SummaryAmbulatory Visit Summary MARLA FIGUEREDO :1955 Visit Date:08/26/2024 Ambulatory Visit Instructions Your Diagnosis UTI symptoms Atrophic vaginitis Abnormal urinalysis Your Care Team Attending Physician - Jayce TIJERINA, Aditi Lorenzo Primary Care Physician - NOEL FARNSWORTH MD Referring Physician - NOEL FARNSWORTH MD This Is Your Medications List estradiol topical (Estrace 0.1 mg/g Cream) Contact prescribing physician if questions or concerns aspirin (aspirin 81 mg Oral EC Tab) azelastine nasal (azelastine hydrochloride 137 mcg spray) cholecalciferol (Vitamin D3 50,000 intl units oral capsule) ferrous sulfate (ferrous sulfate 325 mg Tab) metoprolol (Lopressor 25 mg oral tablet) pantoprazole (Pantoprazole [address] Tab) spironolactone (spironolactone 25 mg Tab) tizanidine (tiZANidine 4 mg Tab) torsemide (torsemide 20 mg Tab) warfarin (warfarin 2.5 mg Tab) What to do next You Need to Schedule the Following Appointments Follow Up with Jayce TIJERINA, PORFIRIO Fenton, URO When: Where: Medications What How Much When Instructions New estradiol topical (Estrace 0.1 mg/ g Cream) See instructions Refills: 6 Apply pea-sized amount around urethra and inside vagina 3 times per week at night for one month then 2 times per week afterfor maintenance. Pickup at [facility]/pharmacy #[id number] Unchanged aspirin (aspirin 81 mg Oral EC Tab) 1 Tablets By Mouth Every day Contact prescribing physician if questions or concerns Unchanged azelastine nasal (azelastine hydrochloride 137 mcg spray) 1 Sprays Contact prescribing physician if questions or concerns Unchanged cholecalciferol (Vitamin D3 50,000 intl units oral capsule) 1 Capsules Contact prescribing physician if questions or concerns Unchanged ferrous sulfate (ferrous sulfate 325 mg Tab) 1 Tablets Contact prescribing physician if questions or concerns Unchanged metoprolol (Lopressor 25 mg oral tablet) 1 Tablets By Mouth Every day Contact prescribingphysician if questions or concerns Unchanged pantoprazole (Pantoprazole [address] Tab) 1 Tablets Contact prescribing physician if questions or concerns Unchanged spironolactone (spironolactone 25 mg Tab) 2 Tablets Contact prescribing physician if questions or concerns Unchanged tizanidine (tiZANidine 4 mg Tab) 2 Tablets Contact prescribing physician if questions or concerns Unchanged torsemide (torsemide 20 mg Tab) 1 Tablets Contact prescribing physician if questions or concerns Unchanged warfarin (warfarin 2.5 mg Tab) 1 Tablets Contact prescribing physician if questions or concerns Pharmacy Information [facility]/pharmacy #[id number]: [address], [place] [id number] [phone] Allergies chlorzoxazone (Hives) gabapentin (Nausea, Hives) Problems Ongoing - Any problem that you are currently receiving treatment for. Abnormal urinalysis Atrophic vaginitis UTI symptoms Patient Survey You may receive a survey via text or e-mail asking about your office visit. Please share your experience with us by completing your survey. We appreciate your feedback and thank you for choosing us for your care. Education Materials Atrophic Vaginitis Atrophic vaginitis is a condition in which the tissues that line the vagina become dry and thin. This condition is most common in women who have stopped having regular menstrual periods (are in menopause). This usually starts when a woman is 45 to 55 years old. That is the time when a woman's estrogen levels begin to decrease. Estrogen is a female hormone. It helps to keep the tissues of the vagina moist. It stimulates the vagina to produce a clear fluid that lubricates the vagina for sex. This fluid also protects the vagina from infection. Lack of estrogen can cause the lining of the vagina to get thinner and dryer. Thevagina may also shrink in size. It may become less elastic. Atrophic vaginitis tends to get worse over time as a woman's estrogen level drops. What are the causes? This condition is caused by the normal drop in estrogen that happens around the time of menopause. What increases the risk? Certain conditions or situations may lower a woman's estrogen level, leading to a higher risk for atrophic vaginitis. You are more likely to develop this condition if: ??? You are taking medicines that block estrogen. ??? You have had your ovaries removed. ??? You are being treated for cancer with radiation or medicines (chemotherapy). ??? You have given or are . ??? You are older than age 50. ??? You smoke. What are the signs or symptoms? Symptoms of this condition include: ??? Pain, soreness, a feeling of pressure, or bleeding during sex (dyspareunia). ??? Vaginal burning, irritation, or itching. ??? Pain or bleeding when a speculum is used in a vaginal exam. ??? Having burning pain while urinating. ??? Vaginal discharge. In some cases, there are no symptoms. How is this diagnosed? This c (more content not included)...NormalFulton County Health CenterUrinalysis macro (dipstick) panel (U)on 24-05-3475Rnnhmoemi, UANegativeNegative - 4(70) +++ mg/dLNOMS HealthcareBlood, UANegativeNegative - 50 Binh/[facility] [facility] HospitalNOMD Healthcare Clarity, UAClearNOMS HealthcareColor, UAYellowNOMS HealthcareGlucose, UANegative Negative - 1999(110) ++++ mg/dLNOMS HealthcareInterpretation and review of laboratory resultsNormalNOMS HealthcareKetones, UANegativeNegative - 160(16) ++++ mg/dLNOMS HealthcareLeukocytes, UANegativeNegative - 500+++ Ashu/mcLNOMS HealthcareNitrite, UANegativeNegative - PositiveNOMS HealthcarepH, UA55 - 9NOMS HealthcareProtein, UANegativeNegative - 1999(20) ++++ mg/dLNOMS HealthcareSpec Grav, UA1.011 - 1.03NOMS HealthcareUrobilinogen, UA0.20.2 - 12 mg/dLNOMD HealthcareNOMD HealthcareUrinalysis macro (dipstick) panel (U)on 08-07-2024 Bilirubin, UANegativeNegative - 4(70) +++ mg/dLNOMS HealthcareBlood, UAPositive Negative - 50 [address] HospitalNOMD HealthcareComment on above:trace NHGlucose, UANegative Negative - 1999(110) ++++ mg/dLNOMS HealthcareInterpretation and review of laboratory resultsAbnormalNOMS HealthcareKetones, UANegativeNegative - 160(16) ++++ mg/dLNOMS HealthcareLeukocytes, UAModerateNegative - 500+++ Ashu/Mad[facility] Avenue HospitalNOMD HealthcareNitrite, UANegativeNegative - PositiveNOMS HealthcarepH, UA55 - 9NOMS HealthcareProtein, UANegativeNegative - 1999(20) ++++ mg/dLNOMS HealthcareSpec Grav, UA1.0051 - 1.03NOMD HealthcareUrobilinogen, UA0.20.2 - 12 mg/dLNOMS HealthcareNOMS HealthcareALL LIPID PROFILE (FASTING)on 96-96-4721MMWT HDL RATIO 2.6NOMS HealthcareComment on above:3.3 - 4.4 LOW RISK 4.4 - 7.1 AVERAGE RISK 7.1 - 11.0 MODERATE RISK >11.0 HIGH RISK Cholesterol [Mass/Vol]157 mg/dLNINF - 200 mg/dLNOMS HealthcareCholesterol in HDL [Mass/Vol]60 mg/dL40 - 60 mg/dLNOMS HealthcareComment on above:> or =60 mg/dl - LOW CARDIOVASCULAR RISK <40 mg/dl - HIGH CARDIOVASCULAR RISK Magnesium [Mass/Vol]68.4 mg/dLNOMD HealthcareComment on above:<100 mg/dl OPTIMAL 100-129 mg/dl NEAR OR ABOVE OPTIMAL 130-159 mg/dl BORDERLINE HIGH 160-189 mg/dl HIGH >190 mg/dl VERY HIGH Magnesium [Mass/Vol]28.6 mg/dLNOMS HealthcareTriglyceride [Mass/Vol]143 mg/dL NINF - 150 mg/dLNOMD HealthcareCLINISYNCNOMS HealthcareNo Panel Informationon [id number] Walker MA 07/02/2024 1:02 PM L Inj/Asp: R glenohumeral on 07/02/2024 9:57 AM Indications: pain Details: 25 G needle, ultrasound-guided Medications: 12 mg betamethasone acetate-betamethasone sodium phosphate 6 (3-3) MG/ML Consent was given by the patient. NOMS HealthcareNOMS HealthcareALL THYROID STIM HORMONEon 03-15-9280OVB Qn2.111 m[IU]/LNOMS HealthcareCCF CMP (CMP) (FOR REMOTE [facility] USE)on 20-18-6846Tsxnkba [Mass/Vol]3.3 g/dLLow3.4 - 5.0 g/dLNOMD HealthcareALBUMIN GLOBULIN RATIO0.9NOMD HealthcareALP [Catalytic activity/Vol]77 U/L46 - 116 U/LNOMS HealthcareALT [Catalytic activity/Vol]23 U/L14 - 59 U/LNOMS HealthcareAnion gap [Moles/Vol] 12.2 mmol/LNOMS HealthcareAST [Catalytic activity/Vol]25 U/L15 - 37 U/LNOMS HealthcareBilirubin [Mass/Vol]1 mg/dL0.2 - 1.0 mg/dLNOMD HealthcareCalcium [Mass/Vol]9.9 mg/dL8.5 - 10.1 mg/dLNOMD HealthcareChloride [Moles/Vol]107 mmol/L 98 - 107 mmol/LNOMS HealthcareCO2 [Moles/Vol]27.5 mmol/L21.0 - 32.0 mmol/LNOMS HealthcareCreatinine [Mass/Vol]0.87 mg/dL0.55 - 1.02 mg/dLNOMD Healthcare GFR/1.73 sq M.predicted CKD-EPI (S/P/Bld) [Vol rate/Area]>60>=60 mL/min/1.73m 2 NOMS HealthcareGlobulin (S) [Mass/Vol]3.6 g/dLNOMD HealthcareGlucose [Mass/Vol] 89 mg/dL74 - 106 mg/dLNOMD HealthcareInterpretation and review of laboratory resultsAbnormalNOMS HealthcarePotassium [Moles/Vol]4.7 mmol/L3.5 - 5.1 mmol/L NOMS HealthcareProtein [Mass/Vol]6.9 g/dL6.4 - 8.2 g/dLNOMD HealthcareSodium [Moles/Vol]142 mmol/L136 - 145 mmol/LNOMS HealthcareTBH EGFR-NON AF LITHUANIAN>60 >=60 mL/min/1.73m 2NOMS HealthcareUrea nitrogen [Mass/Vol]28 mg/dLHigh7.0 - 18.0 mg/dLNOMD HealthcareUrea nitrogen/Creatinine [Mass ratio]32.2 mg/mgNOMD HealthcareNo Panel Informationon [id number] HealthcareURIC ACIDon 01-14-3438Mavov [Mass/Vol]6.8 mg/dLNormal2.5-7.0Quest DiagnosticsComment on above:Order Comment: FASTING:NO FASTING: NOResult Comment: Therapeutic target for gout patients: <6.0 mg/dL Performed By: #### 905 #### [facility] [address], [address] [place] [address] Dianetic Counselor: Jose Yao [facility] screening mammo BI w/CADon [id number] screening mammo BI w/[facility] [place] [address] Mammography Report Signed Patient: Marla Figueredo MR#: [id number] : 1955 Acct:[id number] Age/Sex: 68 / F ADM Date: 03/19/24 Loc: [place] Room: Type: [facility] Attending Dr: Sherlyn Rucker DO Copies to: [...] Erik Rodriguez M.D.03/19/2024 3:47 PM Dictation Location: [facility] Transcribed By: [facility] 03/19/24 1547 Dictated By: Erik Rodriguez MD 03/19/24 1541 Signed By: 03/19/24 1547[facility] GroupMammography reportOrdered By: Erik Rodriguez on 67-18-3410Mcwbklmypy imaging [facility] [place] [address] [place] [address] Mammography Report Signed Patient: Marla Figueredo MR#: [id number] : 1955 Acct:[id number] Age/Sex: 68 / F ADM Date: 5 Loc: [place] Room: Type: [facility] Attending Dr: Sherlyn Rucker DO Copies to: MD Sherlyn Miller II, DO~ Ordering Provider: Sherlyn Rucker DO [...] Erik Rodriguez M.D.03/19/2024 3:47 PM Dictation Location: [facility] Transcribed By: AJ 03/19/24 1547 Dictated By: Erik Rodriguez MD 03/19/24 1541 Signed By: 03/19/24 1547 [facility] Work Phone: Urinalysis macro (dipstick) panel (U)on 03-12-2024 Bilirubin, UATraceNegative - 4(70) +++ mg/dLNOMS HealthcareBlood, UAPositive Negative - 50 Binh/mcLNOMS HealthcareGlucose, UANegativeNegative - 2000(110) ++++ mg/dLNOMS HealthcareKetones, UANegativeNegative - 160(16) ++++ mg/dLNOMS HealthcareLeukocytes, UATraceNegative - 500+++ Ashu/mcLNOMS HealthcareNitrite, UA NegativeNegative - PositiveNOMS HealthcarepH, UA65 - 9NOMS HealthcareProtein, UA 3+Negative - 2000(20) ++++ mg/dLNOMS HealthcareSpec Grav, UA1.0151 - 1.03NOMS HealthcareUrobilinogen, UA0.20.2 - 12 mg/dLNOMS HealthcareNOMS HealthcareCBC (INCLUDES DIFF/PLT)on 46-96-9627Lcakmntbt (Bld) [#/Vol]0.018 10*3/uLNormal0-200 Quest DiagnosticsComment on above:Performed By: #### 793, 6399, 927 #### [facility] of [address], [address] [place] [address] Dianetic Counselor: Jose Yao MDBasophils/100 WBC (Bld)0.3 %NormalQuest DiagnosticsComment on above:Performed By: #### 793, 6399, 927 #### [facility] of [address], [address] [place] [address] Dianetic Counselor: Jose Yao MDEosinophils (Bld) [#/Vol]0.061 10*3/uLNormal 15-500Quest DiagnosticsComment on above:Performed By: #### 793, 6399, 927 #### [facility] of [address], [address] [place] [address] Dianetic Counselor: Jose WALLACEosinophils/100 WBC (Bld)1.0 %NormalQuest DiagnosticsComment on above:Performed By: #### 793, 8258, 927 #### [facility] of [place] [address] Dianetic Counselor: Jose Yao MDErythrocyte distribution width (RBC) [Ratio] 12.7 %Upvcgl16.0-15.0Quest DiagnosticsComment on above:Performed By: #### 793, 0947, 927 #### [facility] of [place] [address] Dianetic Counselor: Jose Yao MDHematocrit (Bld) [Volume fraction]36.1 %Normal 35.0-45.0Quest DiagnosticsComment on above:Performed By: #### 793, 3380, 927 #### [facility] of [place] [address] Dianetic Counselor: Jose Yao MDHemoglobin (Bld) [Mass/Vol]11.4 g/dLLow 11.7-15.5Quest DiagnosticsComment on above:Performed By: #### 793, 6399, 927 #### [facility] of [address], [address] [place] [address] Dianetic Counselor: Jose Yao MDLymphocytes (Bld) [#/Vol]1.122 10*3/uLNormal 850-3900Quest DiagnosticsComment on above:Performed By: #### 793, 6399, 927 #### [facility] of [address], [address] [place] [address] Dianetic Counselor: Jose Yao MDLymphocytes/100 WBC (Bld)18.4 %NormalQuest DiagnosticsComment on above:Performed By: #### 793, 6399, 927 #### [facility] [place] [address] Dianetic Counselor: Jose Yao MDMCH (RBC) [Entitic mass]28.2 jwXmykxl55.0-33.0 Quest DiagnosticsComment on above:Performed By: #### 793, 6399, 927 #### [facility] [place] [address] Dianetic Counselor: Jose Yao MDMCHC (RBC) [Mass/Vol]31.6 g/dLLow32.0-36.0 Quest DiagnosticsComment on above:Result Comment: For adults, a slight decrease in the calculated MCHC value (in the range of 30 to 32 g/dL) is most likely not clinically significant; however, it should be interpreted with caution in correlation with other red cell parameters and the patient's clinical condition.Performed By: #### 793, 6399, 927 #### [facility] [place] [address] Dianetic Counselor: Jose Yao MDMCV (RBC) [Entitic vol]89.4 zENkokud69.0-100.0 Quest DiagnosticsComment on above:Performed By: #### 793, 6399, 927 #### [facility] of [address], [address] [place] [address] Dianetic Counselor: Jose Yao MDMonocytes (Bld) [#/Vol]0.415 10*3/uLNormal 200-950Quest DiagnosticsComment on above:Performed By: #### 793, 6399, 927 #### [facility] of [address], [address] [place] [address] Dianetic Counselor: Jose Yao MDMonocytes/100 WBC (Bld)6.8 %NormalQuest DiagnosticsComment on above:Performed By: #### 793, 6399, 927 #### [facility] of [address], [address] [place] [address] Dianetic Counselor: Jose Yao MDNeutrophils (Bld) [#/Vol]4.484 10*3/uLNormal 1500-7800Quest DiagnosticsComment on above:Performed By: #### 793, 6399, 927 #### [facility] of [address], [address] [place] [address] Dianetic Counselor: Jose aYo MDNeutrophils/100 WBC (Bld)73.5 %NormalQuest DiagnosticsComment on above:Performed By: #### 793, 6399, 927 #### [facility] of [address], [address] [place] [address] Dianetic Counselor: Jose Yao MDPlatelet mean volume (Bld) [Entitic vol]11.4 fLNormal7.5-12.5Quest DiagnosticsComment on above:Performed By: #### 793, 6399, 927 #### [facility] of [address], [address] [place] [address] Dianetic Counselor: Jose Yao MDPlatelets (Bld) [#/Vol]142 10*3/uLNormal 140-400Quest DiagnosticsComment on above:Performed By: #### 793, 6399, 927 #### [facility] of [address], [address] [place] [address] Dianetic Counselor: Jose Yao MDRBC ([facility]) [#/Vol]4.04 10*6/uLNormal3.80-5.10 Quest DiagnosticsComment on above:Performed By: #### 793, 6399, 927 #### [facility] of [address], [address] [place] [address] Dianetic Counselor: Jose Yao MDWBC (d) [#/Vol]6.1 10*3/uLNormal3.8-10.8 Quest DiagnosticsComment on above:Performed By: #### 793, 6399, 927 #### [facility] of [address], [address] [place] [address] Dianetic Counselor: Jose Yao MDFOLATE, SERUMon 80-95-3408Ueanen [Mass/Vol] ng/mLNormalQuest DiagnosticsComment on above:Result Comment: Reference Range Low: <3.4 Borderline: 3.4-5.4 Normal: >5.4Performed By: #### 793, 6399, 927 #### [facility] [place] [address] Dianetic Counselor: Jose TREVINOETICULOCYTE COUNTon 89-68-4563NPOTUYKHMLID COUNT, AUTOMATED2.2 %NormalQuest DiagnosticsComment on above:Order Comment: FASTING:NO FASTING: NOPerformed By: #### 793, 6399, 927 #### [facility] of [address], [address] [place] [address] Dianetic Counselor: Jose TREVINOETICULOCYTE, QPNWOABS72642 cells/uLHigh [address]Qsnzh DiagnosticsComment on above:Order Comment: FASTING:NO FASTING: NOPerformed By: #### 793, 6399, 927 #### [facility] of [address], [address] [place] [address] Dianetic Counselor: Jose BATISTA B12on 44-38-7642Llyrgjsge (Vitamin B12) [Mass/Vol]1015 pg/pUGwkcae840-0953Bktlw DiagnosticsComment on above: Performed By: #### 793, 2250, 927 #### [facility] [address] [place] [address], [address] [place] [address] Dianetic Counselor: Jose GHOSH VITAMIN B1, WHOLE BLOODon 01-23-2024 VITAMIN B1 (THIAMINE), TANAY461.7 nmol/L66.5 - 200.0 nmol/LNOMS Healthcare Comment on above:This test was developed and its performance characteristics determined by [facility]. It has not been cleared or approved by the Food and Drug Administration. Performed at: [facility] Lab[address] [id number] [employer] Brusher: Bernice Gant MD, Phone: [phone] [facility] HospitalVITAMIN B12on 33-66-7845Dbviqghyz (Vitamin B12) [Mass/Vol]826 pg/mL232 - 1245 pg/mLNOMS HealthcareComment on above:Performed at: [facility] Lab[address] [place] [address] [id number] [employer] Brusher: Bharat Cain PhD, Phone: [phone] [facility] HospitalALL CBC WITH AUTO DIFFon 83-26-8032ESLZHKUJH ABSOLUTE KDMZ2VXJB HealthcareBasophils/100 WBC (Bld)0.5 %0.2 - 2.0 %[facility] Eosinophils/100 WBC (Bld)1.5 %0.9 - 7.0 %NOMSsm RehabErythrocyte distribution width (RBC) [Ratio]14.2 %11.0 - 15.0 %NOMS HealthcareHematocrit (Bld) [Volume fraction]35.2 %Low36.0 - 48.0 %NOM HealthcareHemoglobin (Bld) [Mass/Vol]10.8 g/dLLow12.0 - 16.0 g/dLNOMD HealthcareIMMATURE GRANULOCYTES ABS AUTO0.02NOMS HealthcareImmature granulocytes/100 WBC (Bld)0.3 %0.0 - 0.5 %NOMSsm Rehab Interpretation and review of laboratory resultsAbnormalNOCapital Region Medical Center LYMPHOCYTES ABSOLUTE AUTO1.1LowNOMS HealthcareLymphocytes/100 WBC (Bld)17.6 %Low 20.5 - 60.0 %[facility] HealthcareH (RBC) [Entitic mass]28.5 pg26.7 - 34.0 pgNOKindred HospitalHC (RBC) [Mass/Vol]30.7 g/dL29.9 - 35.2 g/dLMissouri Southern HealthcareV (RBC) [Entitic vol]92.9 fL81.0 - 99.0 fLUTAH STATE [facility]PITAL HealthcareMONOCYTES ABSOLUTE AUTO0.3NOMD HealthcareMonocytes/100 WBC (Bld)5.2 %1.7 - 12.0 %[facility] HealthcareNEUTROPHILS ABSOLUTE AUTO4.6NOMS HealthcareNeutrophils/100 WBC (Bld)74.9 %43.0 - 75.0 %[facility] Medical CenterPlatelet mean volume (Bld) [Entitic vol]10.7 fL9.5 - 13.5 fLSaint John's Breech Regional Medical CenterTBH EO #0.1NOMS HealthcareTB DJJ262SfoMKST HealthcareTB RBC3.79Low [facility] Medical CenterTB WBC6.2NOMS HealthcareCLINISYNCNALLIANCEHEALTH MIDWE[facility] HealthcareALL FOLIC ACIDon 45-47-9555JHQOOV73.3 ng/mL8.60 - 58.90 ng/mLNMercy Hospital WashingtonALL MAGNESIUMon 31-44-9115Zkueigbft [Mass/Vol]2.2 mg/dL1.8 - 2.4 mg/dLSaint John's Breech Regional Medical CenterALL PHOSPHOROUSon 83-41-6416Hcyevpidq [Mass/Vol]2.8 mg/dL2.6 - 4.7 mg/dLCass Medical CenterF CMP (CMP) (FOR REMOTE [facility] USE)on 45-38-9104Mhvwktj [Mass/Vol]3 g/dLLow3.4 - 5.0 g/dLSaint John's Breech Regional Medical CenterALBUMIN GLOBULIN RATIO0.9NOMD HealthcareALP [Catalytic activity/Vol]77 U/L46 - 116 U/LNOMS HealthcareALT [Catalytic activity/Vol]23 U/L14 - 59 U/LNOMS HealthcareAnion gap [Moles/Vol]13.2 mmol/L [facility] HealthcareAST [Catalytic activity/Vol]18 U/L15 - 37 U/LNOMS Healthcare Bilirubin [Mass/Vol]1 mg/dL0.2 - 1.0 mg/dLNOCapital Region Medical CenterCalcium [Mass/Vol]9.9 mg/dL8.5 - 10.1 mg/dLNOMD HealthcareChloride [Moles/Vol]109 mmol/LHigh98 - 107 mmol/LNOMS HealthcareCO2 [Moles/Vol]23.9 mmol/L21.0 - 32.0 mmol/LNOMS Healthcare Creatinine [Mass/Vol]0.91 mg/dL0.55 - 1.02 mg/dLNOMD HealthcareGFR/1.73 sq M.predicted CKD-EPI (S/P/Bld) [Vol rate/Area]>60>=60 mL/min/1.73m 2NA[facility] HealthcareGlobulin (S) [Mass/Vol]3.3 g/dLNOCapital Region Medical CenterGlucose [Mass/Vol]91 mg/dL74 - 106 mg/dLUTAH STATE HOSPITAL HealthcareInterpretation and review of laboratory resultsAbnormMain Line Health/Main Line HospitalsPotassium [Moles/Vol]4.1 mmol/L3.5 - 5.1 mmol/L [facility] HealthcareProtein [Mass/Vol]6.3 g/dLLow6.4 - 8.2 g/dLSaint John's Breech Regional Medical CenterSodium [Moles/Vol]142 mmol/L136 - 145 mmol/LNMercy Hospital WashingtonTBH EGFR-NON AF LITHUANIAN>60 >=60 mL/min/1.73m 2NA[facility] HealthcareUrea nitrogen [Mass/Vol]29 mg/dLHigh7.0 - 18.0 mg/dLSaint John's Breech Regional Medical CenterUrea nitrogen/Creatinine [Mass ratio]31.9 mg/mgSaint John's Breech Regional Medical CenterCCF FERRITINon 21-69-6995Umchtrvz [Mass/Vol]604 ng/mLHigh8.0 - 252.0 ng/mLNALLIANCEHEALTH MIDWEST [facility] HealthcareInterpretation and review of laboratory resultsAbMyMichigan Medical Center West BranchMETRO IRON AND TIBCon 78-75-6858Iyozmbtnmuelhj and review of laboratory resultsAbnormMain Line Health/Main Line HospitalsTB IRON54 ug/dL50.0 - 170.0 ug/dLSaint John's Breech Regional Medical CenterTB PERCENT IRON TZHWDROVJM01.9 %[facility] Medical CenterTB TOTAL IRON BINDING ROONEBHI641 ug/zWQbp804.0 - 450.0 ug/dLCounts include 234 beds at the [facility] No Panel Informationon 03-98-1731PRZLHWWCZRVELUniversity of Wisconsin Hospital and ClinicsTB VITAMIN D 25 OHon 96-99-6714JRUZEPT D57.9 ng/mLNMercy Hospital Washington Comment on above:<20 ng/mL Vit D deficient 20-<30 ng/mL Vit D insufficient 30-100 ng/mL Vit D sufficient >100 ng/mL Potential Toxicity No Panel Informationon 60-55-9066Xeastja Kaufman, ARRT 01/02/2024 7:28 PM L Inj/Asp: R glenohumeral on 01/02/2024 9:18 AM Indications: pain Details: 25 G needle, ultrasound-guided Medications: 2 mL betamethasone acetate-betamethasone sodium phosphate 6 (3-3) MG/ML Consent was given by the patient. [facility] & [facility]XR Should[facility] - right 2 Viewson [id number] Result: 4 views right shoulder, Grashey/Zanca/outlet/axillary, taken today and saved to the permanent medical record are reviewed. ACI WNL. No arthritic changes at GH joint. Cystic change in greater tuberosity. Mild AC joint narrowing. Type 1 acromion.Formerly [facility] & [facility] CenterRadiology Study observation (narrative)[facility] CenterXR FOOT RT MIN 3Von [id number] [address] XRay Report Signed Patient: MARLA FIGUEREDO MR#: [id number] : 1955 Acct:[id number] Age/Sex: 68 / F ADM Date: 11/06/23 Loc: RAD Attending Dr: MARLA KNIGHT Ordering Physician: MARLA KNIGHT Date of Service: 11/06/23 Procedure(s): XR foot RT min 3V Accession Number(s): [id number] cc: NOEL FARNSWORTH ; MARLA KNIGHT [address] [address] Patient Name: MARLA FIGUEREDO MRN: [id number] date: 1955 Sex: F Assigned Patient Location: RAD Current Patient Location: [facility] Accession/Order Number: [id number] Exam Date: 11/06/2023 10:14 Report Date: 11/06/2023 11:22 At the request of: MARLA KNIGHT Procedure: XR foot RT min 3V PROCEDURE: [...] swelling of uncertain etiology. Electronically authenticated by: BETY GIORDANO Date: 11/06/2023 11:22 Dictated By: Bety Giordano M.D. Signed By: 11/06/23 1125 DD/ 1122 TD/TT: Knife Sharpener:TBHRadiology, Radiologist, - 11/06/2023 [place] [address] XRay Report Signed Patient: MARLA FIGUEREDO MR#: [id number] : 1955 Acct:[id number] Age/Sex: 68 / F ADM Date: 11/06/23 Loc: [facility] Attending Dr: MARLA KNIGHT Ordering Physician: MARLA KNIGHT Date of Service: 11/06/23 Procedure(s): XR foot RT min 3V Accession Number(s): [id number] cc: NOEL FARNSWORTH ; MARLA KNIGHT [address] [address] Patient Name: MARLA FIGUEREDO MRN: [id number] date: 1955 Sex: F Assigned Patient Location: [facility] Current Patient Location: [facility] Accession/Order Number: [id number] Exam Date: 11/06/2023 10:14 Report Date: 11/06/2023 11:22 At the request of: MARLA KNIGHT Procedure: XR foot RT min 3V PROCEDURE: [...] swelling of uncertain etiology. Electronically authenticated by: BETY GIORDANO Date: 11/06/2023 11:22 Dictated By: Bety Giordano M.D. Signed By: 11/06/23 1125 DD/ 1122 TD/TT: Knife Sharpener: [facility] CenterRadiology Study observation (narrative)[facility] CenterXR FOOT RT MIN 3VOrdered By: Radiologist Radiology on 33-49-2745RRHWSaint [facility]'s [facility] Center Work Phone: all CBC WITH AUTO DIFFon [id number] ABSOLUTE AUTO0.0NOMS [facility]uff[facility] HospitalBasophils/100 WBC (Bld)0.2 %0.2 - 2.0 %[facility] Eosinophils/100 WBC (Bld)0.3 %Low0.9 - 7.0 %[facility] Medical CenterErythrocyte distribution width (RBC) [Ratio]13.9 %11.0 - 15.0 %[facility] Medical CenterHematocrit (Bld) [Volume fraction]38.0 %36.0 - 48.0 %[facility] Medical CenterHemoglobin (Bld) [Mass/Vol]11.7 g/dLLow12.0 - 16.0 g/dLSaint John's Breech Regional Medical CenterIMMATURE GRANULOCYTES ABS AUTO0.03NOCapital Region Medical CenterImmature granulocytes/100 WBC (Bld)0.3 %0.0 - 0.5 %[facility] CenterInterpretation and review of laboratory resultsAbnormalSaint [facility] LYMPHOCYTES ABSOLUTE AUTO1.6NOMS [facility]uff[facility] HospitalLymphocytes/100 WBC (Bld)17.3 %Low 20.5 - 60.0 %[facility] CenterMCH (RBC) [Entitic mass]28.1 pg26.7 - 34.0 pgMissouri Southern HealthcareHC (RBC) [Mass/Vol]30.8 g/dL29.9 - 35.2 g/dLMissouri Southern HealthcareV (RBC) [Entitic vol]91.3 fL81.0 - 99.0 fLNOMD HealthcareMONOCYTES ABSOLUTE AUTO0.6NOMS HealthcareMonocytes/100 WBC (Bld)6.4 %1.7 - 12.0 %[facility] HealthcareNEUTROPHILS ABSOLUTE AUTO7.0HighNOMS HealthcareNeutrophils/100 WBC (Bld)75.5 %High43.0 - 75.0 %NOMS HealthcarePlatelet mean volume (Bld) [Entitic vol]10.8 fL9.5 - 13.5 fLNOMS HealthcareTBH EO #0.0NOMS HealthcareTBH [id number] HealthcareTBH RBC 4.16LowNOMS HealthcareTBH WBC9.3NOMS HealthcareCLINISYNCNOMS HealthcareOffice Visit (Cardiology)on 29-95-4045Iwnkps-up visitDiagnoses/Problems Assessed Permanent atrial fibrillation (427.31) (I48.21) High [...] Metabolic Panel; Status:Active - Retrospective Authorization; Requested for:[id number]; Complete Blood Count; Status:Active - Retrospective Authorization; Requested for:[id number]; Class 2 severe obesity with serious comorbidity and body mass index (BMI) of 39.0 to 39.9 in adult Healthy Weight Tips; Status:Complete - Retrospective Authorization; Done: [id number] Some eating tips that can help you lose weight.; Status:Complete - Retrospective Authorization; Done: [id number] Edema of both legs Renew: Torsemide 20 [...] Metabolic Panel; Status:Active - Retrospective Authorization; Requested for:[id number]; Complete Blood Count; Status:Active - Retrospective Authorization; Requested for:18Bsb1531; Essential hypertension, Permanent atrial fibrillation Renew: Metoprolol Tartrate 25 MG Oral Tablet; TAKE 1 TABLET TWICE DAILY SocHx: Former smoker Tobacco Use Screening; Status:Complete; Done: [id number] Patient Instructions Please bring all medicines, vitamins, [...] fibrillation managed by the Coumadin clinic at [facility]. Her weight is couple pounds below her previous visit.She has no orthopnea or PND. She is intolerant to CPAP machine and was again reminded to try harderto lose weight to minimize sleep apnea. Apart from the irregular rhythm and the lower extremity edema physical examination was unremarkable. She nevertheless has class II obesity. Assessment/recommendations: 1?permanent atrial fibrillation that is asymptomatic. Heart rate is controlled on metoprolol 25 mg twice daily and on chronic anticoagulation with Coumadin managed by the Coumadin clinic at [facility]. 2?essential hypertension under control on metoprolol. 3? history of severe lower extremity edema improved on medical therapy. We will continue triple diuretics and follow renal function closely.. 4?morbid obesity status post bariatric surgery but remains in class II obesity, more aggressive weight loss was recommended 5?high risk medication with anticoagulation with no bleeding problems. 6?nuclear stress test in [place] several years ago was normal, no need [...] TABLET DAILY NEEDED. Magnesium (more content not included)...NormalUH TouchworksTobacco Screening.on 03-83-0512Fmaw risk assessmenta) No falls within the last yearSt. [facility] E[facility]Ticket 250 DO Work Phone: Tobacco use status CPHSb) NoMWalla Walla General Hospital RIISnet 250 DO Work Phone: CB AUTO DIFFon [id number] #0.0 103/ulNormal 0.0-0.1The [facility] HospitalComment on above:Performed By: #### PT, PTT #### [facility] [address], [place] [address] Dr. Rey Gurrolaphils/100 WBC (Bld)0.4 %Normal0.2-2.0The [facility] Comment on above:Performed By: #### PT, PTT #### [facility] [address] [address] [address] Rey Turner #0.0 103/ulNormal0.0-0.7The [facility] HospitalComment on above: Performed By: #### PT, PTT #### [facility] [address] [place] [address] Dr. Rey Senaosinophils/100 WBC (Bld)0.4 %Critically low0.9-7.0The [facility] HospitalComment on above:Performed By: #### PT, PTT #### [facility] [address] [place] [address] Dr. Rey Senarythrocyte distribution width (RBC) [Ratio]13.9 %Ntafnx94.0-15.0 The [facility] HospitalComment on above:Performed By: #### PT, PTT #### [facility] [address] [place] [address] Dr. Rey StewartHematocrit (Bld) [Volume fraction]37.6 %Cspbhr30.0-48.0The [facility] HospitalComment on above:Performed By: #### PT, PTT #### [facility] [address] [place] [address] Dr. Rey StewartHemoglobin (Bld) [Mass/Vol]12.1 g/mUVtvefl11.0-16.0The [facility] Hospitalment on above:Performed By: #### PT, PTT #### [facility] [address] [place] [address] Dr. Rey Anaya #0.04 10e3/ulCritically high0.00-0.03The [facility] Comment on above:Performed By: #### PT, PTT #### [facility] [address] [place] [address] Dr. Rey Anaya %0.6 %Critically high0.0-0.5The [facility] Memorial Hospitalment on above:Performed By: #### PT, PTT #### [facility] [address] [place] [address] Dr. Rey Acevedo #1.4 103/ulNormal1.2-3.8The [facility] HospitalComment on above:Performed By: #### PT, PTT #### [facility] [address] [place] [address] Dr. Rey Tidwellmphocytes/100 WBC (Bld)19.4 %Critically low20.5-60.0The [facility] HospitalComment on above:Performed By: #### PT, PTT #### [facility] [address] [place] [address] Dr. Rey Mederos DIFF REQNONormalThe [facility] HospitalComment on above: Performed By: #### PT, PTT #### [facility] [address] [place] [address] Dr. Rey Martel (RBC) [Entitic mass]28.7 wyYpzuah43.7-34.0The [facility] HospitalComment on above:Performed By: #### PT, PTT #### [facility] [address] [place] [address] Dr. Rey Martel (RBC) [Mass/Vol]32.2 g/mLLjyymy59.9-35.2The [facility] HospitalComment on above:Performed By: #### PT, PTT #### [facility] [address] [place] [address] Dr. Rey Arias (RBC) [Entitic vol]89.1 sIJcqrdl89.0-99.0The [facility] HospitalComment on above:Performed By: #### PT, PTT #### [facility] [address] [place] [address] Dr. Rey Nunez #0.4 103/ulNormal0.3-0.8The [facility] HospitalComment on above:Performed By: #### PT, PTT #### [facility] [address] [place] [address] Dr. Rey Fineocytes/100 WBC (Bld)5.7 %Normal1.7-12.0The [facility] Comment on above:Performed By: #### PT, PTT #### [facility] [address] [place] [address] Dr. Rey Lai #5.3 103/ulNormal1.4-6.5The [facility] Hospitalment on above:Performed By: #### PT, PTT #### [facility] [address] [place] [address] Dr. Rey Rodriguezutrophils/100 WBC (Bld)73.5 %Mccobs12.0-75.0The [facility] on above:Performed By: #### PT, PTT #### [facility] [address] [place] [address] Dr. Rey StewartPlatelet mean volume (Bld) [Entitic vol]9.8 fLNormal9.5-13.5The [facility] on above:Performed By: #### PT, PTT #### [facility] [address] [place] [address] Dr. Rey StewartPLT182 103/grDpbubl998-521Ijv [facility] on above: Performed By: #### PT, PTT #### [facility] [address] [place] [address] Dr. Rey StewartRBC4.22 106/ulNormal4.20-5.40The [facility] on above:Performed By: #### PT, PTT #### [facility] [address] [place] [address] Dr. Rey StewartWBC7.2 103/ulNormal4.0-11.0The [facility] HospitalComaspirus ontonagon hospital on above: Performed By: #### PT, PTT #### [facility] [address] [place] [address] Dr. Rey StewartFERRITINon 73-79-8304Iroiksnq [Mass/Vol]628.0 ng/mLCritically high8.0-252.0The [facility] on above:Performed By: #### BMP #### [facility] [address] [place] [address] Dr. Rey StewartIROElle 55-88-4164Qgdj [Mass/Vol]43.0 ug/dLCritically low 50.0-170.0The Arlington HospitalComment on above:Performed By: #### BMP #### [facility] [address] [place] [address] Dr. Rey StewartMAGNESIUMon 00-05-9723Cpisqfcdg [Mass/Vol]1.7 mg/dLCritically low 1.8-2.4The [facility] HospitalComment on above:Performed By: #### MG #### [facility] [address] [place] [address] Dr. Rey StewartPTH INTACTon 24-89-3914HBK, Syiwug495 pg/mLCritically jfmt15-18 The [facility] HospitalComment on above:Performed By: #### PT, PTT #### [facility] [address] [place] [address] Dr. Rey StewartPROF CHEM 8 (BAS METB)on 57-24-7353Shrwf gap [Moles/Vol]12.0 mmol/LNormalThe [facility] HospitalComment on above:Performed By: #### BMP #### [facility] [address] [place] [address] Dr. Rey StewartCalcium [Mass/Vol]10.3 mg/dLCritically high8.5-10.1The [facility] HospitalComment on above:Performed By: #### BMP #### [facility] [address] [place] [address] Dr. Rey StewartChloride [Moles/Vol]104 mmol/NKanpsr79-349Bfl [facility] Comment on above:Performed By: #### BMP #### [facility] [address] [place] [address] Dr. Rey StewartCO2 [Moles/Vol]32.7 mmol/LCritically high21.0-32.0The [facility] HospitalComment on above:Performed By: #### BMP #### [facility] [address] [place] [address] Dr. Rey StewartCreatinine [Mass/Vol]0.79 mg/dLNormal0.55-1.02The [facility] HospitalComment on above:Performed By: #### BMP #### [facility] [address] [address] [address] Rey SenaGFR-AF LITHUANIAN>60Normal>=60The [facility] HospitalComment on above:Performed By: #### BMP #### [facility] [address] [place] [address] Dr. Rey SenaGFR-NON AF LITHUANIAN>60Normal>=60The [facility] HospitalComment on above:Performed By: #### BMP #### [facility] [address] [address] [address] Rey StewartGlucose [Mass/Vol]94 mg/vRTzmghr60-947Cob [facility] Comment on above:Performed By: #### BMP #### [facility] [address] [place] [address] Dr. Rey StewartPotassium [Moles/Vol]3.7 mmol/LNormal3.5-5.1[place] Comment on above:Performed By: #### BMP #### [facility] [address] [place] [address] Dr. Rey StewartSodium [Moles/Vol]145 mmol/TLbrudo080-668YmjCenterville Comment on above:Performed By: #### BMP #### [facility] [address] [place] [address] Dr. Rey StewartUrea nitrogen [Mass/Vol]33.0 mg/dLCritically high7.0-18.0CentervilleComment on above:Performed By: #### BMP #### [facility] [address] [place] [address] Dr. Rey Gomez nitrogen/Creatinine [Mass ratio]41.8 mg/mgNormalThe [facility] HospitalComment on above:Performed By: #### BMP #### [facility] [address] [place] [address] Dr. Rey StewartVITAMIN D 25 OHon 70-13-5687SAU D 25-OH76.2 ng/mLNormalThe [facility] HospitalComment on above:Performed By: #### VITAD #### [facility] [address] [place] [address] Dr. Rey ANDERSON [facility] Medical CenterComment on above: Result Comment: <20 ng/mL Vit D deficient 20 - <30 ng/mL Vit D insufficient 30 - 100 ng/mL Vit D sufficient >100 ng/mL Potential ToxicityPerformed By: #### VITAD #### [facility] [address] [address] [address] Rey Rosado Visit (Cardiology)on 14-01-4320Cjrbrv-up visit Diagnoses/Problems Assessed Permanent atrial fibrillation with [...] extremity cellulitis. Her atrial fibrillation remains asymptomatic andshe has tolerated Coumadin without a problem. She has no tachycardia. Recent lab data she provided were reviewed with her and her lab data looks good. She has irregular rhythm on examination with 2+ lower extremity edema, the rest of examination was unremarkable. Assessment/recommendations: 1?permanent atrial fibrillation that is asymptomatic. Heart rate is controlled on metoprolol 25 mg twice daily and on chronic anticoagulation with Coumadin managed by the Coumadin clinic at [facility]. 2?essential hypertension under control on metoprolol. 3? history of severe lower extremity edema and cellulitis improved significantly after treatment inthe wound clinic., Continue diuretic therapy with Demadex, metolazone and spironolactone. 4?morbid obesity status post bariatric surgery but remains significantly obese, patient's weight has come down nicely over the last several months. 5?high risk medication with anticoagulation with no bleeding problems. 6?nuclear stress test in [place] several years ago was normal, no need [...] 2.5 MG Oral TabletBellevue [facility] Zinc 50 MG Oral TabletTAKE 1 TABLET DAILY. Allergies Medication Parafon Forte DSC TABS Allergy; Hives;; Recorded By: Judie Shelley; 03/15/2021 1:41:07 PM Social History Problems Caffeine use (V49.89) (Z78 (more content not included)...NormalUH [facility] AUTO DIFFon 47-81-7144UALD #0.0 103/ulNormal0.0-0.1The [facility] HospitalComment on above:Performed By: #### BMP #### [facility] [address] [place] [address] Dr. Rey Jefferssophils/100 WBC (Bld)0.4 %Normal0.2-2.0The [facility] Comment on above:Performed By: #### BMP #### [facility] [address] [address] [address] Rey Turner #0.0 103/ulNormal0.0-0.7The [facility] HospitalComment on above: Performed By: #### BMP #### [facility] [address] [place] [address] Dr. Rey Senaosinophils/100 WBC (Bld)0.6 %Critically low0.9-7.0The [facility] HospitalComment on above:Performed By: #### BMP #### [facility] [address] [address] [address] Yilan ChangErythrocyte distribution width (RBC) [Ratio]14.3 %Cshqgg05.0-15.0 The [facility] HospitalComment on above:Performed By: #### BMP #### [facility] [address] [place] [address] Dr. Rey StewartHematocrit (Bld) [Volume fraction]37.5 %Embmbc89.0-48.0The [facility] HospitalComment on above:Performed By: #### BMP #### [facility] [address] [place] [address] Dr. Rey StewartHemoglobin (Bld) [Mass/Vol]11.7 g/dLCritically low12.0-16.0The [facility] HospitalComment on above:Performed By: #### BMP #### [facility] [address] [place] [address] Dr. Rey Anaya #0.02 10e3/ulNormal0.00-0.03The [facility] HospitalComment on above:Performed By: #### BMP #### [facility] [address] [place] [address] Dr. Rey Anaya %0.3 %Normal0.0-0.5The [facility] HospitalComaspirus ontonagon hospital on above: Performed By: #### BMP #### [facility] [address] [place] [address] Dr. Rey AndersonH #1.4 103/ulNormal1.2-3.8The [facility] HospitalComment on above:Performed By: #### BMP #### [facility] [address] [place] [address] Dr. Rey Tidwellmphocytes/100 WBC (Bld)20.4 %Critically low20.5-60.0The [facility] HospitalComaspirus ontonagon hospital on above:Performed By: #### BMP #### [facility] [address] [place] [address] Dr. Rey BojorquezUAL DIFF REQNONormalThe [facility] HospitalComment on above: Performed By: #### BMP #### [facility] [address] [place] [address] Dr. Rey Martel (RBC) [Entitic mass]27.9 jfWzgqfm65.7-34.0The [facility] HospitalComment on above:Performed By: #### BMP #### [facility] [address] [place] [address] Dr. Rey Martel (RBC) [Mass/Vol]31.2 g/rUCrpsxq48.9-35.2The [facility] HospitalComment on above:Performed By: #### BMP #### [facility] [address] [place] [address] Dr. Rey Martel (RBC) [Entitic vol]89.5 tEGkbeam09.0-99.0The [facility] HospitalComment on above:Performed By: #### BMP #### [facility] [address] [place] [address] Dr. Rey Nunez #0.5 103/ulNormal0.3-0.8The [facility] HospitalComment on above:Performed By: #### BMP #### [facility] [address] [place] [address] Dr. Rey Fineocytes/100 WBC (Bld)7.1 %Normal1.7-12.0The [facility] Comment on above:Performed By: #### BMP #### [facility] [address] [place] [address] Dr. Rey Lai #5.0 103/ulNormal1.4-6.5The [facility] HospitalComment on above:Performed By: #### BMP #### [facility] [address] [place] [address] Dr. Rey Rodriguezutrophils/100 WBC (Bld)71.2 %Hvgkua83.0-75.0The [facility] HospitalComment on above:Performed By: #### BMP #### [facility] [address] [place] [address] Dr. Rey Moreaulet mean volume (Bld) [Entitic vol]10.3 fLNormal9.5-13.5The [facility] HospitalComment on above:Performed By: #### BMP #### [facility] [address] [place] [address] Dr. Rey StewartPLT145 103/ulCritically zen145-486Aqz [facility] HospitalComment on above:Performed By: #### BMP #### [facility] [address] [place] [address] Dr. Rey StewartRBC4.19 106/ulCritically low4.20-5.40The [facility] HospitalComment on above:Performed By: #### BMP #### [facility] [address] [place] [address] Dr. Rey StewartWBC7.1 103/ulNormal4.0-11.0The [facility] HospitalComment on above: Performed By: #### BMP #### [facility] [address] [place] [address] Dr. Rey Thomas 18-86-8535Gxqt [Mass/Vol]35.0 ug/dLCritically low 50.0-170.0The [facility] HospitalComment on above:Performed By: #### IRON #### [facility] [address] [place] [address] Dr. Rey StewartMAGNESIUMon 33-08-4926Mxcsgybbr [Mass/Vol]1.8 mg/dLNormal1.8-2.4 The [facility] HospitalComment on above:Performed By: #### BMP, MG #### [facility] [address] [place] [address] Dr. Rey StewartPROF CHEM 8 (BAS METB)on 30-63-5418Qhows gap [Moles/Vol]10.0 mmol/LNormalThe [facility] HospitalComment on above:Performed By: #### BMP, MG #### [facility] [address] [place] [address] Dr. Rey StewartCalcium [Mass/Vol]10.1 mg/dLNormal8.5-10.1The [facility] on above:Performed By: #### BMP, MG #### [facility] [address] [place] [address] Dr. Rey StewartChloride [Moles/Vol]103 mmol/MAvlxyf58-315FsyCenterville Comment on above:Performed By: #### BMP, MG #### [facility] [address] [place] [address] Dr. Rey StewartCO2 [Moles/Vol]29.7 mmol/OEquhdg28.0-32.0[place] Comment on above:Performed By: #### BMP, MG #### [facility] [address] [place] [address] Dr. Rey StewartCreatinine [Mass/Vol]0.91 mg/dLNormal0.55-1.02The [facility] HospitalComment on above:Performed By: #### BMP, MG #### [facility] [address] [place] [address] Dr. Rey SenaGFR-AF LITHUANIAN>60Normal>=60The [facility] HospitalComment on above:Performed By: #### BMP, MG #### [facility] [address] [place] [address] Dr. Rey SenaGFR-NON AF LITHUANIAN>60Normal>=60CentervilleComment on above:Performed By: #### BMP, MG #### [facility] [address] [place] [address] Dr. Rey StewartGlucose [Mass/Vol]89 mg/vBGefpsq43-049AysCenterville Comment on above:Performed By: #### BMP, MG #### [facility] [address] [place] [address] Dr. Rey StewartPotassium [Moles/Vol]3.7 mmol/LNormal3.5-5.1[place] Comment on above:Performed By: #### BMP, MG #### [facility] [address] [place] [address] Dr. Rey StewartSodium [Moles/Vol]139 mmol/TSxcifr657-369VpdCenterville Comment on above:Performed By: #### BMP, MG #### [facility] [address] [place] [address] Dr. Yilan ChangUrea nitrogen [Mass/Vol]20.0 mg/dLCritically high7.0-18.0The [facility] Hospitalment on above:Performed By: #### BMP, MG #### [facility] [address] [place] [address] Dr. Rey Gomez nitrogen/Creatinine [Mass ratio]22.0 mg/mgNormalThe [facility] HospitalComment on above:Performed By: #### BMP, MG #### [facility] [address] [place] [address] Dr. Rey StewartVITAMIN B1 (THIAMINE)on 96-25-3189Hzi. B1, Whole Wxtki244.9 nmol/LCritically high66.5-200.0The [facility] HospitalComment on above:Performed By: #### VITB1T #### [place] [address] Dr[address] Rey StewartCOPPER, SERUM or PLASMAon 80-28-7177Xkuhue, Zrcjz312 ug/dLNormal 80-158The [facility] HospitalComment on above:Result Comment: Detection Limit = 5 Performed By: #### PT, PTT #### [facility] [address] [place] [address] Dr. Rey Bernabe SERUM OR PLASMAon 09-87-8547Afaz, Plasma or Serum67 ug/dL Ehxisd15-962Deu [facility] on above:Result Comment: Detection Limit = 5Performed By: #### Zinc #### [facility] [address] [place] [address] Dr. Rey Dugan AUTO DIFFon 83-86-4466CJHF #0.0 103/ulNormal0.0-0.1The [facility] Hospitalment on above:Performed By: #### BMP #### [facility] [address] [place] [address] Dr. Rey StewartBasophils/100 WBC (Bld)0.7 %Normal0.2-2.0The [facility] Comment on above:Performed By: #### BMP #### [facility] [address] [place] [address] Dr. Rey Turner #0.0 103/ulNormal0.0-0.7The [facility] HospitalComment on above: Performed By: #### BMP #### [facility] [address] [place] [address] Dr. Rey Senaosinophils/100 WBC (Bld)0.4 %Critically low0.9-7.0The [facility] HospitalComment on above:Performed By: #### BMP #### [facility] [address] [place] [address] Dr. Rey Senarythrocyte distribution width (RBC) [Ratio]13.9 %Usrjvb59.0-15.0 The [facility] HospitalComment on above:Performed By: #### BMP #### [facility] [address] [place] [address] Dr. Rey StewartHematocrit (Bld) [Volume fraction]34.5 %Critically low36.0-48.0 The [facility] HospitalComment on above:Performed By: #### BMP #### [facility] [address] [place] [address] Dr. Rey StewartHemoglobin (Bld) [Mass/Vol]10.8 g/dLCritically low12.0-16.0The [facility] HospitalComment on above:Performed By: #### BMP #### [facility] [address] [place] [address] Dr. Rey Anaya #0.01 10e3/ulNormal0.00-0.03The [facility] HospitalComment on above:Performed By: #### BMP #### [facility] [address] [place] [address] Dr. Rey Anaya %0.2 %Normal0.0-0.5The [facility] HospitalComment on above: Performed By: #### BMP #### [facility] [address] [place] [address] Dr. Rey TidwellMPH #1.0 103/ulCritically low1.2-3.8The [facility] on above:Performed By: #### BMP #### [facility] [address] [place] [address] Dr. Rey Tidwellmphocytes/100 WBC (Bld)21.7 %Owbogh15.5-60.0The [facility] HospitalComment on above:Performed By: #### BMP #### [facility] [address] [place] [address] Dr. Rey BojorquezUAL DIFF REQNONormalThe [facility] HospitalComment on above: Performed By: #### BMP #### [facility] [address] [place] [address] Dr. Rey Martel (RBC) [Entitic mass]28.0 emAyauis73.7-34.0The [facility] HospitalComment on above:Performed By: #### BMP #### [facility] [address] [place] [address] Dr. Rey Martel (RBC) [Mass/Vol]31.3 g/qATpmiyo75.9-35.2The [facility] HospitalComment on above:Performed By: #### BMP #### [facility] [address] [place] [address] Dr. Rey Martel (RBC) [Entitic vol]89.4 aBLubghy79.0-99.0The [facility] HospitalComment on above:Performed By: #### BMP #### [facility] [address] [place] [address] Dr. Rey Nunez #0.4 103/ulNormal0.3-0.8The [facility] HospitalComment on above:Performed By: #### BMP #### [facility] [address] [place] [address] Dr. Rey Fineocytes/100 WBC (Bld)9.3 %Normal1.7-12.0The [facility] Comment on above:Performed By: #### BMP #### [facility] [address] [place] [address] Dr. Rey Lai #3.1 103/ulNormal1.4-6.5The [facility] HospitalComment on above:Performed By: #### BMP #### [facility] [address] [place] [address] Dr. Rey StewartNeutrophils/100 WBC (Bld)67.7 %Xgdgbl98.0-75.0The [facility] on above:Performed By: #### BMP #### [facility] [address] [place] [address] Dr. Rey Moreaulet mean volume (Bld) [Entitic vol]10.2 fLNormal9.5-13.5The [facility] HospitalComment on above:Performed By: #### BMP #### [facility] [address] [place] [address] Dr. Rey StewartPLT152 103/fzStmcdy621-332Vgf [facility] on above: Performed By: #### BMP #### [facility] [address] [place] [address] Dr. Rey StewartRBC3.86 106/ulCritically low4.20-5.40The [facility] on above:Performed By: #### BMP #### [facility] [address] [place] [address] Dr. Rey StewartWBC4.6 103/ulNormal4.0-11.0The [facility] on above: Performed By: #### BMP #### [facility] [address] [place] [address] Dr. Rey StewartFERRITINon 06-12-5582Uixnmemx [Mass/Vol]680.0 ng/mLCritically high8.0-252.0The [facility] on above:Performed By: #### PT, PTT #### [facility] [address] [place] [address] Dr. Rey Bolaños AND TIBCon 02-05-2022% BRLXTCRTDE52.6 %NormalThe [facility] on above:Performed By: #### PT, PTT #### [facility] [address] [place] [address] Dr. Rey Bolaños [Mass/Vol]28.0 ug/dLCritically low50.0-170.0The Agnes HospitalComment on above:Performed By: #### PT, PTT #### [facility] [address] [place] [address] Dr. Rey AguirreC WKKXYM810.0 ug/jPKhecpj814.0-450.0The [facility] Comment on above:Performed By: #### PT, PTT #### [facility] [address] [place] [address] Dr. Rey StewartMAGNESIUMon 44-32-1717Mliknggxv [Mass/Vol]1.4 mg/dLCritically low 1.8-2.4The [facility] HospitalComment on above:Performed By: #### BMP #### [facility] [address] [place] [address] Dr. Rey StewartPHOSPHORUSon 55-65-1435Jgjitijbs [Mass/Vol]2.9 mg/dLNormal2.6-4.7 The [facility] HospitalComment on above:Performed By: #### BMP #### [facility] [address] [place] [address] Dr. Rey StewartPROF 14(COMP METB)on 60-93-4138Wybyjji [Mass/Vol]3.1 g/dL Critically low3.4-5.0The [facility] HospitalComment on above:Performed By: #### BMP #### [facility] [address] [place] [address] Dr. Rey StewartAlbumin/Globulin [Mass ratio]0.8 {ratio}NormalThe [facility] HospitalComment on above:Performed By: #### BMP #### [facility] [address] [place] [address] Dr. Rey Elizabeth [Catalytic activity/Vol]60 U/CFmuiqq67-953Mfe [facility] HospitalComment on above:Performed By: #### BMP #### [facility] [address] [place] [address] Dr. Rey Gross [Catalytic activity/Vol]18 U/QBgzoin17-48Djz [facility] HospitalComment on above:Performed By: #### BMP #### [facility] [address] [place] [address] [address] Rey Ribeiro gap [Moles/Vol]8.9 mmol/LNormalThe [facility] HospitalComment on above:Performed By: #### BMP #### [facility] [address] [place] [address] [address] Rey StewartAST [Catalytic activity/Vol]24 U/UKebgez24-33Mxi [facility] HospitalComment on above:Performed By: #### BMP #### [facility] [address] [place] [address] [address] Rey StewartBilirubin [Mass/Vol]0.9 mg/dLNormal0.2-1.0The [facility] Comment on above:Performed By: #### BMP #### [facility] [address] [place] [address] Dr. Rey StewartCalcium [Mass/Vol]9.8 mg/dLNormal8.5-10.1The [facility] Comment on above:Performed By: #### BMP #### [facility] [address] [place] [address] Dr. Rey StewartChloride [Moles/Vol]100 mmol/RNdsztx03-408Dbn [facility] Comment on above:Performed By: #### BMP #### [facility] [address] [place] [address] Dr. Rey StewartCO2 [Moles/Vol]32.7 mmol/LCritically high21.0-32.0The [facility] HospitalComment on above:Performed By: #### BMP #### [facility] [address] [place] [address] Dr. Rey StewartCreatinine [Mass/Vol]1.02 mg/dLNormal0.55-1.02The [facility] HospitalComment on above:Performed By: #### BMP #### [facility] [address] [place] [address] Dr. Rey SenaGFR-AF LITHUANIAN>60Normal>=60The [facility] HospitalComment on above:Performed By: #### BMP #### [facility] [address] [place] [address] Dr. Rey SenaGFR-NON AF SGMKDPAW36 mL/min/1.37s7Btlylvvcht low>=60The [facility] HospitalComment on above:Performed By: #### BMP #### [facility] [address] [place] [address] [address] Rey StewartGlobulin (S) [Mass/Vol]4.1 g/dLNormMercy Health Allen HospitalComment on above:Performed By: #### BMP #### [facility] [address] [place] [address] [address] Rey StewartGlucose [Mass/Vol]96 mg/aLWegkix59-818Nrl [facility] Comment on above:Performed By: #### BMP #### [facility] [address] [place] [address] [address] Rey StewartPotassium [Moles/Vol]3.6 mmol/LNormal3.5-5.1The [facility] Comment on above:Performed By: #### BMP #### [facility] [address] [place] [address] [address] Rey StewartProtein [Mass/Vol]7.2 g/dLNormal6.4-8.2The [facility] Comment on above:Performed By: #### BMP #### [facility] [address] [place] [address] Dr. Rey StewartSodium [Moles/Vol]138 mmol/REhbeuj355-039Cux [facility] Comment on above:Performed By: #### BMP #### [facility] [address] [place] [address] [address] Rey StewartUrea nitrogen [Mass/Vol]28.0 mg/dLCritically high7.0-18.0The [facility] HospitalComment on above:Performed By: #### BMP #### [facility] [address] [place] [address] [address] Rey Gomez nitrogen/Creatinine [Mass ratio]27.5 mg/mgNoCorey HospitalComment on above:Performed By: #### BMP #### [facility] [address] [place] [address] [address] Rey Lee B12 AND FOLATEon 66-34-6629Yfmadsjbk (Vitamin B12) [Mass/Vol] 1002.0 pg/mLCritically cxjn635.0-986.0Park[facility] Hospitalment on above: Performed By: #### PT, PTT #### [facility] [address] [place] [address] Dr. Rye StewartFOLATE20.30 ng/mLNormal8.60-58.90The [facility] HospitalComment on above:Performed By: #### PT, PTT #### [facility] [address] [place] [address] Dr. Rey StewartVITAMIN D 25 OHon 13-12-4730XNE D 25-OH73.5 ng/mLNormalThe [facility] HospitalComment on above:Performed By: #### PT, PTT #### [facility] [address] [place] [address] Dr. Rey Chamberlain [place] [facility] Behavioral Medical CenterComment on above: Result Comment: <20 ng/mL Vit D deficient 20 - <30 ng/mL Vit D insufficient 30 - 100 ng/mL Vit D sufficient >100 ng/mL Potential ToxicityPerformed By: #### PT, PTT #### [facility] [address] [place] [address] Dr. Rey StewartPROLoren CHEM 8 (BAS METB)on 12-44-3808Rejsv gap [Moles/Vol]7.5 mmol/LNormalThe [facility] HospitalComment on above:Performed By: #### PT, PTT #### [facility] [address] [place] [address] Dr. Rey StewartCalcium [Mass/Vol]10.1 mg/dLNormal8.5-10.1The [facility] Comment on above:Performed By: #### PT, PTT #### [facility] [address] [place] [address] Dr. Rey StewartChloride [Moles/Vol]101 mmol/FAvlthw11-428Rdl [facility] Comment on above:Performed By: #### PT, PTT #### [facility] [address] [place] [address] [address] Rey StewartCO2 [Moles/Vol]34.1 mmol/LCritically high21.0-32.0The [facility] HospitalComment on above:Performed By: #### PT, PTT #### [facility] [address] [place] [address] Dr. Rey StewartCreatinine [Mass/Vol]0.85 mg/dLNormal0.55-1.02The [facility] HospitalComment on above:Performed By: #### PT, PTT #### [facility] [address] [place] [address] Dr. Rey SenaGFR-AF LITHUANIAN>60Normal>=60The [facility] HospitalComment on above:Performed By: #### PT, PTT #### [facility] [address] [place] [address] Dr. Rey SenaGFR-NON AF LITHUANIAN>60Normal>=60The [facility] HospitalComment on above:Performed By: #### PT, PTT #### [facility] [address] [place] [address] Dr. Rey StewartGlucose [Mass/Vol]77 mg/iLShiqtg78-849OcrCenterville Comment on above:Performed By: #### PT, PTT #### [facility] [address] [place] [address] Dr. Rey StewartPotassium [Moles/Vol]3.6 mmol/LNormal3.5-5.1The [facility] Comment on above:Performed By: #### PT, PTT #### [facility] [address] [place] [address] Dr. Rey StewartSodium [Moles/Vol]139 mmol/UPfvvsn941-915Hqt [facility] Comment on above:Performed By: #### PT, PTT #### [facility] [address] [place] [address] Dr. Rey StewartUrea nitrogen [Mass/Vol]26.0 mg/dLCritically high7.0-18.0The [facility] HospitalComment on above:Performed By: #### PT, PTT #### [facility] [address] [place] [address] Dr. Rey Gomez nitrogen/Creatinine [Mass ratio]30.6 mg/mgNoCorey HospitalComment on above:Performed By: #### PT, PTT #### [facility] [address] [place] [address] Dr. Rey StewartCT HEAD WO CONon [id number] HEAD WO CONEXAMINATION: CT HEAD WO CON, 11/10/2021 1:59 PM [...] Electronically authenticated by: HARPREET QUINTERO Date: 2021-11-10 14:33[facility] SouthPROTIMEon 07-35-4464FKU Coag (PPP) [Relative time]2.75 {INR} NormalThe [facility] HospitalComment on above:Performed By: #### PT, PTT #### [facility] [address] [place] [address] Dr. Rey Gaviria GUIDELINESSEE BELOWSelect Medical Specialty Hospital - Columbus SouthComment on above:Result Comment: DESIRED INR: 2.0 - 3.0 CONDITIONS NOT LISTED BELOW 2.5 - 3.5 FOR PROSTHETIC HEART VALVE REPLACEMENT 2.5 - 3.5 RECURRENT THROMBOSIS Performed By: #### PT, PTT #### [facility] [address] [place] [address] Dr. Rey StewartPT Coag (PPP) [Time]27.8 sCritically high9.0-11.6The [facility] HospitalComment on above:Performed By: #### PT, PTT #### [facility] [address] [place] [address] Dr. Rey Hager 54-14-2953cBEL Coag (Bld) [Time]48.4 sCritically high 22.3-36.2The [facility] HospitalComment on above:Performed By: #### PT, PTT #### [facility] [address] [place] [address] Dr. Rey StewartPOTASSIUMon 83-34-4784Oykvbagiz [Moles/Vol]3.4 mmol/LCritically low3.5-5.1The [facility] HospitalComment on above:Performed By: #### BMP #### [facility] [address] [place] [address] Dr. Rey StewartPROF CHEM 8 (BAS METB)on 27-64-0461Vooud gap [Moles/Vol]9.7 mmol/LNormalThe [facility] HospitalComment on above:Performed By: #### PT, PTT #### [facility] [address] [place] [address] Dr. Rey StewartCalcium [Mass/Vol]10.2 mg/dLCritically high8.5-10.1The [facility] HospitalComment on above:Performed By: #### PT, PTT #### [facility] [address] [place] [address] Dr. Rey StewartChloride [Moles/Vol]98 mmol/SIutllx88-837Hwz [facility] Comment on above:Performed By: #### PT, PTT #### [facility] [address] [place] [address] Dr. Rey StewartCO2 [Moles/Vol]36.0 mmol/LCritically high21.0-32.0The [facility] HospitalComment on above:Performed By: #### PT, PTT #### [facility] [address] [place] [address] Dr. Rey StewartCreatinine [Mass/Vol]0.99 mg/dLNormal0.55-1.02The [facility] HospitalComment on above:Performed By: #### PT, PTT #### [facility] [address] [address] [address] Rey SenaGFR-AF LITHUANIAN>60Normal>=60The [facility] HospitalComment on above:Performed By: #### PT, PTT #### [facility] [address] [address] Rey SenaGFR-NON AF GILUNGIC61 mL/min/1.35h8Cpsmashmru low>=60The [facility] HospitalComment on above:Performed By: #### PT, PTT #### [facility] [address] [address] [address] Rey StewartGlucose [Mass/Vol]98 mg/sSJmelkw35-076Xre [facility] Comment on above:Performed By: #### PT, PTT #### [facility] [address] [address] [address] Rey StewartPotassium [Moles/Vol]2.6 mmol/LCritically low3.5-5.1The [facility] HospitalComment on above:Performed By: #### PT, PTT #### [facility] [address] [address] [address] Rey StewartSodium [Moles/Vol]139 mmol/EKcigwl964-290Mef [facility] Comment on above:Performed By: #### PT, PTT #### [facility] [address] [address] [address] Rey StewartUrea nitrogen [Mass/Vol]37.0 mg/dLCritically high7.0-18.0The [facility] HospitalComment on above:Performed By: #### PT, PTT #### [facility] [address] [address] [address] Rey StewartUrea nitrogen/Creatinine [Mass ratio]37.4 mg/mgNormalThe [facility] HospitalComaspirus ontonagon hospital on above:Performed By: #### PT, PTT #### [facility] [address] [address] [address] Rey Rosado Visit (Cardiology)on 83-45-1910Dmfdds-up visit Diagnoses/Problems Assessed Permanent atrial fibrillation with [...] Weight Tips; Status:Complete - Retrospective Authorization; Done: [id number] Some eating tips that can help you lose weight.; Status:Complete - Retrospective Authorization; Done: [id number] SocHx: Former smoker Tobacco Use Screening; Status:Complete; Done: [id number] Unlinked Stop: metOLazone 5 MG Oral Tablet [...] Mily Hackett MD will decide if rx ifMetolazone 5 mg will be given every other day. Follow up in 6 months Chief Complaint MARLA FIGUEREDO is being seen for a 6 month follow-up of. Patient is in the office for follow-up for the problems noted below. She continues to have chronic atrial fibrillation managed with rate control and Coumad[facility] She does have chronic lower extremity edema [...] and clear lungs. She has no tachycardia. Assessment/recommendations: 1?permanent atrial fibrillation that is asymptomatic. Heart rate is controlled on metoprolol 25 mg twice daily and on chronic anticoagulation with Coumadin managed by the [facility]. We agreed to pursue rate control versus [...] no bleeding problems. 6?nuclear stress test in [place] several years ago was normal, no need [...] 2.5 MG Oral TabletBellevue manages warfarin at [facility] (more content not included)...NormalUH TouchworksTobacco Screening.on 67-96-6857Rdsi risk assessmenta) [facility] within the [facility] [employer] DO Work Phone: Tobacco use status CPHSb) [facility] [employer] DO Work Phone: Tobacco Screening.on 40-26-9552Soyzk depression screening assessmentLandmark Medical Center [employer] DO Work Phone: Fall risk assessmenta) No falls within the last year [facility] [employer] DO Work Phone: Tobacco use status CPHSb) [facility] [employer] DO Work Phone: Vital Signs Date TimeVital SignValuePerforming KwuxxovgiRajdurlg53-40-6882 09:35-0400Body iybhsw385.6 cmLazaro Rukhsana Reglare Work Phone: [employer] Fymjlthava46-23-6599 09:35-0400Body mass index (BMI) [Ratio]39.82 kg/z9Auhue Rukhsana Reglare Work Phone: [facility]OC[facility] CenterKobmptdrtd85-05-7991 09:35-0400Body pipzky563.23 kgLazaro Rukhsana Reglare Work Phone: [facility]OC[facility] CenterEqeyhdyuhl06-40-5994 08:41-0400Body eoetyb328.6 cmMarla WILSON Work Phone: [facility]OC[facility] CenterFkdtrgrkcj49-88-9372 08:41-0400Body mass index (BMI) [Ratio]39.89 kg/f1YgzezMarla WILSON Work Phone: [facility] CenterJimpdajxuv93-60-2267 08:41-0400Body temperature 98.1 [degF]Marla Hemmer PA Work Phone: [facility]OC[facility] CenterSstmqjtthl64-60-2720 08:41-0400Body kbqrab765.42 kgMiguelitoen Hemmer PA Work Phone: [facility] CenterGestyqoftl16-84-5092 08:41-0400Diastolic blood lifrpjby58 mm[Hg]Marla Hemmer PA Work Phone: [facility] CenterQespaxuize83-24-7461 08:41-0400Heart rate68 /min Marla Hemmer PA Work Phone: [facility] CenterRjlpxvmghk18-15-8668 08:41-0400Respiratory rate16 /minMiguelitoen Hemmer PA Work Phone: [facility] CenterVedlxdccgl61-77-6617 08:41-2708WwR1% (BldA) [Mass fraction]99 %Marla Hemmer PA Work Phone: [facility] CenterEqksvjsocr01-73-1452 08:41-0400Systolic blood cuvavmnp808 mm[Hg]Marla Hemmer PA Work Phone: [facility]OC[facility] CenterPzhjadsxqm96-27-8971 10:34-0400Body zdhyzm586.6 cmNoel Farnsworth MD Work Phone: [facility] CenterNetukokkdq94-48-5848 10:34-0400Body mass index (BMI) [Ratio]41.54 kg/g5RfbdktNoel Farnsworth MD Work Phone: [facility] CenterXyxcarwbdu14-92-4571 10:34-0400Body cabmid676.77 kgNoel Farnsworth MD Work Phone: [facility] CenterCkzjbutmzq04-90-3421 10:34-0400Diastolic blood haqchujn37 mm[Hg]Noel Farnsworth MD Work Phone: [facility] CenterPeemrklwfo98-02-3996 10:34-0400Heart rate51 /min Noel Farnsworth MD Work Phone: [facility] CenterZsrhkotljv35-02-7996 10:34-0400Respiratory rate16 /minDkimberley Farnsworth MD Work Phone: [facility] CenterXfsyfmdgmn75-28-4968 10:34-8382TrQ1% (BldA) [Mass fraction]97 %Noel Farnsworth MD Work Phone: [facility]OC[facility] CenterUuveqqyyqh20-00-4543 10:34-0400Systolic blood ixhalgnx632 mm[Hg]Noel Farnsworth MD Work Phone: [facility] CenterCxalfhyvwo54-01-1499 08:38-0400Body jhlgla875.6 cmStamela Gracia [employer] Work Phone: [facility] CenterWypsgffjig10-05-7051 08:38-0400Body mass index (BMI) [Ratio]41.37 kg/x7GvouknDenisha Gracia [employer] Work Phone: [facility] CenterCddtrrpmub55-00-1412 08:38-0400Body ypotpu337.32 kgShcody Gracia [employer] Work Phone: [facility]OC[facility] CenterKbzvkiwetg96-31-5601 08:38-0400Diastolic blood rbtynerl11 mm[Hg]Denisha Gracia [employer] Work Phone: [facility] CenterEggvutbtlw33-81-8163 08:38-0400Heart rate61 /min Denisha Gracia [employer] Work Phone: [facility] CenterMoysnmgffq87-81-2559 08:38-0400Respiratory rate17 /minStamela Gracia [employer] Work Phone: [facility] CenterMdbqdqtugc57-46-1562 08:38-0136GiV6% (BldA) [Mass fraction]98 %Denisha Gracia [employer] Work Phone: [facility] CenterJjcqrtfymh76-22-2463 08:38-0400Systolic blood silvaiar626 mm[Hg]Denisha Gracia [employer] Work Phone: [facility] CenterCkycldtlaq48-26-9152 13:54-0400Diastolic blood stqoicnh63 mm[Hg]Noel Farnsworth II Work Phone: [facility]07-08-2025 13:54-0400 Heart rate57 /minDkimberley Farnsworth II Work Phone: [facility]07-08-2025 13:54-0400 Respiratory rate18 /minDantonioel Farnsworth II Work Phone: [facility]07-08-2025 13:54-0400 SaO2% (BldA) [Mass fraction]99 %Noel Farnsworth II Work Phone: [facility]07-08-2025 13:54-0400 Systolic blood ukexatvk303 mm[Hg]Noel Farnsworth II Work Phone: [facility]07-08-2025 09:42-0400 Body srpwpo754.1 cmNoel Farnsworth II Work Phone: [facility]07-08-2025 09:42-0400 Body zbhpei946.67 kgNoel Farnsworth II Work Phone: [facility]06-19-2025 09:06-0400 Body .1 Marcie Hackett MD Work Phone: 1(504)[address]06-19-2025 09:06-0400 Body mass index (BMI) [Ratio]40.27 kg/r8BulacrMily Hackett MD Work Phone: 1(108)[address]06-19-2025 09:06-0400 Body tiqxku540.77 kgMily Hackett MD Work Phone: 1(637)[address]06-19-2025 09:06-0400 Diastolic blood rbcoleqn49 mm[Hg]Mily Hackett MD Work Phone: 1(355)[address] [place], [place] 0503206-19-2025 09:06-0400 Heart rate60 /minMily Hackett MD Work Phone: 1(846)[address]06-19-2025 09:06-0400 Systolic blood fdbstmeu620 mm[Hg]Mily Hackett MD Work Phone: 1(931)[address]06-16-2025 16:40-0400 Body rulpah767.6 cmNoel Farnsworth MD Work Phone: [facility] CenterStpxkpcanp17-55-7827 16:40-0400Body mass index (BMI) [Ratio]41.37 kg/k0MvomrzNoel Farnsworth MD Work Phone: [facility] CenterSmtnmttqqr74-79-2464 16:40-0400Body riyvhu464.32 kgNoel Farnsworth MD Work Phone: [facility] CenterNtlrjwxwqn37-91-6855 16:40-0400Diastolic blood oazftwnz55 mm[Hg]Noel Farnsworth MD Work Phone: [facility] CenterSjgppxrulc43-28-5367 16:40-0400Heart rate75 /min Noel Farnsworth MD Work Phone: [facility] CenterMygkrxgifl36-17-7245 16:40-8275PpG8% (BldA) [Mass fraction]97 %Noel Farnsworth MD Work Phone: [facility] CenterIigcoogppg54-18-6882 16:40-0400Systolic blood hqephooj899 mm[Hg]Noel Farnsworth MD Work Phone: [facility] CenterOoiutbrrbv14-22-5969 15:09-0400Body vteybn280.6 cmNoel Farnsworth MD Work Phone: [facility] CenterFptcmerzsj41-24-8697 15:09-0400Body mass index (BMI) [Ratio]40.68 kg/h7FdzwasNoel Farnsworth MD Work Phone: [facility] CenterWlwyqgyvlz05-25-5682 15:09-0400Body yltkih191.5 kgNoel Farnsworth MD Work Phone: [facility] CenterJyjopvdwjv74-20-6785 15:09-0400Diastolic blood xglreqmi47 mm[Hg]Noel Farnsworth MD Work Phone: [facility] CenterMgwsoliecw41-20-2073 15:09-0400Heart rate67 /min Noel Farnsworth MD Work Phone: [facility] CenterRzptejkqbj39-87-8881 15:09-0400Respiratory rate17 /minDkimberley Farnsworth MD Work Phone: [facility] CenterYcvgawoxzv01-61-8734 15:09-7078IvO1% (BldA) [Mass fraction]97 %Noel Farnsworth MD Work Phone: 1(162)483-[address] [place], [place] [address]Wpijymljma16-39-2589 15:09-0400Systolic blood vbalyefr941 mm[Hg]Noel Farnsworth MD Work Phone: [facility] CenterRdwoccejig08-19-6299 12:39-0400Body mhistm112.6 cmMarla Hemmer PA Work Phone: [facility] CenterTsopvcpoqt03-87-1036 12:39-0400Body mass index (BMI) [Ratio]41.37 kg/l0Hivjd Hemmer PA Work Phone: [phone] CenterZzizyhyezo51-06-1195 12:39-0400Body temperature 97.5 [degF]Marla Hemmer PA Work Phone: 1(439)[facility]6388[facility] CenterUudytkqiqu09-26-3545 12:39-0400Body cdnpse242.32 kgMiguelitoen Hemmer PA Work Phone: [phone] CenterCmmbymhscc86-12-7681 12:39-0400Diastolic blood jzvfmzyt08 mm[Hg]Marla Hemmer PA Work Phone: 1(041)[facility]7623[facility] CenterAkytobaecv53-80-5955 12:39-0400Heart rate63 /min Marla Hemmer PA Work Phone: 1(912)[facility]-7826[facility] CenterJuqrsjlecd78-29-0607 12:39-6567CkN4% (BldA) [Mass fraction]97 %Marla Hemmer PA Work Phone: [facility] CenterZlcyksucgy27-19-0830 12:39-0400Systolic blood ysjuwhvv495 mm[Hg]Marla Hemmer PA Work Phone: [phone] CenterRfmgkrmxks03-42-7300 09:38-0400Body scnlzi598.6 cmMiguelitoen Hemmer PA Work Phone: [facility] CenterZjlotwhwmp31-97-2117 09:38-0400Body mass index (BMI) [Ratio]41.33 kg/c1Awspg Hemmer PA Work Phone: [facility] CenterVoiokkodqg71-27-8556 09:38-0400Body ogytfa473.23 kgMiguelitoen Hemmer PA Work Phone: [facility] CenterMenwcfhxms22-17-2045 09:38-0400Diastolic blood raqrokie02 mm[Hg]Marla Knight PA Work Phone: [facility] CenterFtjwbmaebu12-76-3097 09:38-0400Heart rate58 /min Marla Knight PA Work Phone: [facility] CenterUsoikcqfhu91-55-4927 09:38-0400Respiratory rate16 /minMarla Knight PA Work Phone: [facility] CenterIpkzdqduou81-73-8026 09:38-2794WrK0% (BldA) [Mass fraction]95 %Marla Knight PA Work Phone: [facility] CenterMqytuboqey09-09-7972 09:38-0400Systolic blood pipeprwn838 mm[Hg]Marla Knight PA Work Phone: [facility] CenterVbfrfnhbil02-11-8280 09:39-0400Body .6 cmLazaro Milian DO Work Phone: [facility] CenterAjobkamowz69-01-1819 09:39-0400Body mass index (BMI) [Ratio]42.57 kg/r2UubswLazaro Milian DO Work Phone: [facility] CenterFacfarkden88-77-2892 09:39-0400Body jfagfy180.49 kgMorisgriffin Milian DO Work Phone: no[facility] CenterDomvcetelp57-54-6956 13:32-0400Body .6 cmFrankshannon Reji [employer] Work Phone: [facility] CenterFlqwoinzso80-34-4809 13:32-0400Body mass index (BMI) [Ratio]42.64 kg/m2Emily Park [employer] Work Phone: [place] [address]Qfjtdwzeml36-47-4647 13:32-0400Body xhuydw192.67 kgEmily Park [employer]ERSON Work Phone: [place] [address]Vyblawdkbn78-31-8766 13:32-0400Diastolic blood mm[Hg]Emily Park [employer] Work Phone: [place] [address]Ithjkxssbo01-62-6140 13:32-0400Heart rate62 /min Emily Park [employer]ERSON Work Phone: [place] [address]Nbhsfvlmxf42-36-4500 13:32-0400Respiratory rate16 /minEmily Park [employer] Work Phone: [facility] CenterOxybosolcx07-60-5129 13:32-9420XiJ0% (BldA) [Mass fraction]98 %Emily Reji [employer] Work Phone: [place] [address]Hbgjwsogfd32-03-9647 13:32-0400Systolic blood swhhqryq993 mm[Hg]Emily Reji [employer] Work Phone: [place] [address]Dzbitdbwzy80-10-8833 09:37-0400Body mass index (BMI) [Ratio]41.49 kg/h8FfnxxpescTrung Rivas MD Work Phone: 1([phone] [place], [place] 4370104-15-2025 09:37-0400Body nvdjol218.08 kgTrung Rivas MD Work Phone: 1(740)150-[address] [place], [place] 4370104-15-2025 09:37-0400Diastolic blood mm[Hg]Trung Rivas MD Work Phone: 1(853)929-[address] [place], [place] 4370104-15-2025 09:37-0400Systolic blood fuqbvcuf666 mm[Hg]Trung Rivas MD Work Phone: 1(235)[address]02-20-2025 13:08-0500Body mzkyxa591.6 cmEmily Park [employer]ERSON Work Phone: [facility] CenterAjuhhyrsfb05-39-5305 13:08-0500Body mass index (BMI) [Ratio]43.08 kg/m2Emily Reji [employer] Work Phone: [facility] CenterDhllzsitgy40-96-8044 13:08-0500Body .85 kgEmily Park [employer]ERSON Work Phone: [facility] CenterSrnljzfnyn88-80-9957 13:08-0500Diastolic blood ojmmrrkk52 mm[Hg]Emily Reji [employer] Work Phone: [facility] CenterPeadvmocpm28-67-9572 13:08-0500Heart rate69 /min Emily Park [employer] Work Phone: [facility] CenterSqvkondqpj23-68-5755 13:08-2880XlH3% (BldA) [Mass fraction]94 %Emily Park [employer] Work Phone: [facility] CenterAdkfauttig54-83-0850 13:08-0500Systolic blood cnnuqlkd758 mm[Hg]Emily Park [employer] Work Phone: [facility] CenterTnpiunvqwc76-15-5241 15:26-0500Body nizcgv980.6 cmFrankshannon Reji [employer]ERSON Work Phone: [facility] CenterSkrbkxcues12-64-9842 15:26-0500Body temperature 97.39 [degF]Emily Park [employer] Work Phone: [facility] CenterHaazzyjdlb89-32-7648 15:26-0500Diastolic blood ielnpmyp87 mm[Hg]Emily Park [employer]ERSON Work Phone: [facility] CenterShlbflbgoy89-57-6672 15:26-0500Heart rate68 /min Emily Park [employer] Work Phone: [facility] CenterAnphgvwxyh33-24-8491 15:26-0500Systolic blood iugqfhhq417 mm[Hg]Emily Park [employer] Work Phone: [facility] CenterTrlfoxbsoc48-19-5238 09:38-0500Body mass index (BMI) [Ratio]41.88 kg/v5Moyxwmvt Rinkes DO Work Phone: [facility] CenterUetuflozxq88-88-8243 09:38-0500Body olefuw087.68 kgKathleen Rinkes DO Work Phone: no[facility] CenterQbtpfefyvw43-54-2308 09:38-0500Diastolic blood uoaccckm82 mm[Hg]Sherlyn Rinkes DO Work Phone: [facility] CenterPekxvtybav03-80-8325 09:38-0500Systolic blood jhlredzr365 mm[Hg]Sherlyn Rinkes DO Work Phone: [facility] CenterUkgvccwkzx60-91-0969 09:08-0500Body mywuhu209.6 cmNoel Farnsworth MD Work Phone: no[facility] CenterDsdxdiaitb02-95-6005 09:08-0500Body mass index (BMI) [Ratio]42.57 kg/b2IgfyokNoel Farnsworth MD Work Phone: [facility] CenterNcfgdrskbg66-45-5512 09:08-0500Body temperature 97.81 [degF]Noel Farnsworth MD Work Phone: [facility] CenterTqtxnwmvgv09-54-9195 09:08-0500Body tcbunk833.49 kgNoel Farnsworth MD Work Phone: [facility] CenterLyfzmlimmm89-72-4975 09:08-0500Diastolic blood vanwavyi46 mm[Hg]Noel Farnsworth MD Work Phone: [phone] CenterAvdtbdyhwy08-70-1416 09:08-0500Heart rate76 /min Noel Farnsworth MD Work Phone: [facility] CenterCdvfgbagkf47-42-9568 09:08-0500Systolic blood pezyhqwc830 mm[Hg]Noel Farnsworth MD Work Phone: [facility] CenterHzfqphzinb90-92-2040 08:55-0500Body copdbg021.6 cmNoel Farnsworth MD Work Phone: [facility] CenterAoasasjbrs80-18-5348 08:55-0500Body mass index (BMI) [Ratio]42.74 kg/o3VhimajNoel Farnsworth MD Work Phone: [facility] CenterWgeivofxvj30-73-8197 08:55-0500Body temperature 96.91 [degF]Noel Farnsworth MD Work Phone: [facility] CenterFflcceitym14-13-1258 08:55-0500Body .95 kgNoel Farnsworth MD Work Phone: [facility] CenterJpaifkcxac66-63-3280 08:55-0500Diastolic blood pxuihrof48 mm[Hg]Noel Farnsworth MD Work Phone: [facility] CenterQglkcdwpvg99-79-3235 08:55-0500Heart rate76 /min Noel Farnsworth MD Work Phone: [facility] CenterLbabdaqfrl51-26-2963 08:55-7027JqU7% (BldA) [Mass fraction]97 %Noel Farnsworth MD Work Phone: [facility] CenterWuykwprujo37-55-1759 08:55-0500Systolic blood jmynoppl592 mm[Hg]Noel Farnsworth MD Work Phone: no[facility] CenterDfwbmgreee68-65-9007 12:02-0400Body .6 cmMarla Knight PA Work Phone: no[facility] CenterRftagaeugi66-08-0966 12:02-0400Body mass index (BMI) [Ratio]41.37 kg/a5Itjhf Hemmer PA Work Phone: [facility] CenterQijzdwqvjr62-02-6946 12:02-0400Body temperature 98.4 [degF]Marla Hemmer PA Work Phone: [facility] CenterXuzatrjiuv90-18-3714 12:02-0400Body xbosph530.32 kgMarla Hemmer PA Work Phone: [facility] CenterSuueigagtx48-51-0650 12:02-0400Diastolic blood foadobou98 mm[Hg]Marla Hemmer PA Work Phone: no[facility] CenterEyndzudmsc56-56-0274 12:02-0400Heart rate64 /min Marla Hemmer PA Work Phone: no[facility] CenterMoizzwftna31-00-6447 12:02-0400Respiratory rate16 /minMarla Hemmer PA Work Phone: no[facility] CenterHmwijwqyod17-72-0285 12:02-9819BlP3% (BldA) [Mass fraction]96 %Marla Hemmer PA Work Phone: no[facility] CenterGnnuwccjgf21-64-6803 12:02-0400Systolic blood llmfayaa884 mm[Hg]Marla Hemmer PA Work Phone: [facility] CenterWovdjnwibh00-58-8783 09:00-0400Body zkdeqk114.6 cmLazaro Milian DO Work Phone: [employer] Kybbcxsxpk72-39-5908 09:00-0400Body mass index (BMI) [Ratio]41.88 kg/m9HkoqbLazaro Milian DO Work Phone: [employer] Bbyydrccza51-27-0249 09:00-0400Body onyjwy007.68 kgLazaro Milian DO Work Phone: no[facility] CenterYeniioaqsm40-52-8110 09:41-0400Body qagfdq674.1 cmMily Hackett MD Work Phone: 1(674)863-[address] [place], [place] 0503209-19-2024 09:41-0400 Body mass index (BMI) [Ratio]40.6 kg/i9HtcpdsMily Hackett MD Work Phone: 1(478)[address]09-19-2024 09:41-0400 Body afonvz077.68 kgMily Hackett MD Work Phone: 1(172)[address]09-19-2024 09:41-0400 Diastolic blood osnceezi16 mm[Hg]Mily Hackett MD Work Phone: 1(162)[address]09-19-2024 09:41-0400 Heart rate66 /minMily Hackett MD Work Phone: 1(613)[address]09-19-2024 09:41-0400 Systolic blood dckflypr263 mm[Hg]Mily Hackett MD Work Phone: 1(690)[address]08-20-2024 09:37-0400 Body mass index (BMI) [Ratio]41.92 kg/d3DhtiacDenisha Gracia [employer] Work Phone: [facility] CenterQbvrhwjeih66-94-4924 09:37-0400Body .77 kgDenisha Gracia [employer] Work Phone: [facility] CenterCftotyborq33-53-5086 09:37-0400Diastolic blood bvasrayx09 mm[Hg]Denisha Gracia [employer] Work Phone: [facility] CenterYyzcnwceys54-44-8695 09:37-0400Heart rate50 /min Denisha Gracia [employer] Work Phone: [facility] CenterZnuptlbdjy27-23-3259 09:37-0400Respiratory rate16 /minStamela Gracia [employer]ERSON Work Phone: [facility] CenterVtvhnzhrhl12-41-7637 09:37-2519JjF5% (BldA) [Mass fraction]98 %Denisha Gracia [employer] Work Phone: 1(419)483-[address] [place], [place] [address]Sopwrvmrip83-58-2812 09:37-0400Systolic blood qegoyjeq984 mm[Hg]Denisha Gracia NP Work Phone: [facility] CenterDvgvxxrlvq66-97-1674 14:42-0500Diastolic blood wpoclalv88 mm[Hg]Mily Hackett MD Work Phone: 1(729)[address]03-04-2024 14:42-0500 Systolic blood hdbonkoq886 mm[Hg]Mily Hackett MD Work Phone: 1(426)[address]03-04-2024 14:20-0500 Body latogw100.1 cmMily Hackett MD Work Phone: 1(010)[address]03-04-2024 14:20-0500 Body mass index (BMI) [Ratio]39.94 kg/w1ZkzetoMily Hackett MD Work Phone: 1(334)197[address]03-04-2024 14:20-0500 Body aaekjm557.86 kgMily Hackett MD Work Phone: 1(540)[address]03-04-2024 14:20-0500 Heart rate56 /minMily Hackett MD Work Phone: 1(566)[address]02-07-2024 14:08-0500 Body uxjumr972.6 cmNoel Farnsworth MD Work Phone: [facility] CenterHxlmmtxwxb28-42-7376 14:08-0500Body mass index (BMI) [Ratio]41.37 kg/e4VgclxgNoel Farnsworth MD Work Phone: [facility] CenterIdxmyouygy80-42-5237 14:08-0500Body temperature 98.71 [degF]Noel Farnsworth MD Work Phone: [facility] CenterYjjvjbubcl86-77-1435 14:08-0500Body .32 kgNoel Farnsworth MD Work Phone: [facility] CenterJijuknbvsl32-03-8040 14:08-0500Diastolic blood tdfjzrfo94 mm[Hg]Noel Farnsworth MD Work Phone: [facility] CenterIwsyqkyswf66-61-3900 14:08-0500Heart rate82 /min Noel Farnsworth MD Work Phone: [facility] CenterQxtctthjzf93-49-8023 14:08-8464LwB1% (BldA) [Mass fraction]98 %Noel Farnsworth MD Work Phone: [facility] CenterHksrsuoasz39-28-4912 14:08-0500Systolic blood kqxezkbj904 mm[Hg]Noel Farnsworth MD Work Phone: [facility] CenterYciljbfjuu58-31-3679 11:59-0400Body dzggiv678.1 cmDaerica Snow Farnsworth Work Phone: 1(751) [phone]-Mnpmv [facility] DO Work Phone: 1(157) 482-869708-15-2023 11:59-0400Body mass index (BMI) [Ratio] 39.44 kg/i8Lwnykr B Farnsworth Work Phone: 1(892) [phone]-Psrvy [facility] DO Work Phone: 1(210)135-93910-795785-62334331-75-9761 11:59-0400Body surface area Derived from formula2.13 p5Raiwbi B Farnsworth Work Phone: 1(350) [phone]-Vfuvq [facility] DO Work Phone: 1(989)370-52962-664794-22709038-91-3933 11:59-0400Body ialspd153.5 kgDaerica Snow Javad Work Phone: 1(618) [phone]-Idhhv [facility] DO Work Phone: 1(511)015-56602-260067-62010289-52-4075 11:59-0400Diastolic blood efjmniqw23 mm[Hg] Noel Snow Farnsworth Work Phone: 1(188) [phone]-Haiow [facility] DO Work Phone: 1(443) 105-625608-15-2023 11:59-0400Heart rate72 /minDkimberley Snow Farnsworth Work Phone: 1(216) [phone]-Ywjbz [facility] DO Work Phone: 1(439) 786-783408-15-2023 11:59-0400Systolic blood rphibzmu688 mm[Hg] Noel Farnsworth Work Phone: mp425-0040SF-Hyqvv [facility] DO Work Phone: 1(414) 402-835208-24-2022 09:33-0400Body hciudc931.1 cmMily Hackett MD Work Phone: mp414-5338NH-Sorri [facility] DO Work Phone: 1(161) 251-812808-24-2022 09:33-0400Body mass index (BMI) [Ratio] 41.81 kg/h8KtzpxoMily Hackett MD Work Phone: mp106-0484NH-Dlwpw [facility] DO Work Phone: 1(795) 695-495308-24-2022 09:33-0400Body surface area Derived from formula2.18 o9FtrawxMily Hackett MD Work Phone: mp414-2800FE-Pgsqm [facility] DO Work Phone: 1(611) 872-790408-24-2022 09:33-0400Body uhkhiy855.97 kgMily Hackett MD Work Phone: mp507-5330HX-Mbgpa [facility] DO Work Phone: 1(228) 446-200608-24-2022 09:33-0400Diastolic blood uvnfeexm21 mm[Hg] Mily Hackett MD Work Phone: mp791-1303SP-Xfyuj [facility] DO Work Phone: 1(250) 908-370408-24-2022 09:33-0400Heart rate60 /minMily Hackett MD Work Phone: mp613-9804CI-Cwyzk [facility] DO Work Phone: 1(728) 299-722408-24-2022 09:33-0400Systolic blood lljfiecm188 mm[Hg] Mily Hackett MD Work Phone: mp601-0677ZS-Ogzpi [facility] DO Work Phone: 1(832) 188-418402-16-2022 11:21-0500Body quixts541.1 cmMily Hackett MD Work Phone: mp556-1097VG-Hovfd [facility] DO Work Phone: 1(839) 919-949002-16-2022 11:21-0500Body mass index (BMI) [Ratio] 42.77 kg/y6SkodsfMily Hackett MD Work Phone: mp486-1688GF-Ieyjb [facility] DO Work Phone: 1(729) 631-695702-16-2022 11:21-0500Body surface area Derived from formula2.2 y3YzdjzqMily Hackett MD Work Phone: mp988-5765CF-Ysndo [facility] DO Work Phone: 1(933) 139-977402-16-2022 11:21-0500Body griyjm405.58 kgMily Hackett MD Work Phone: mp983-0129VN-Xdett [facility] DO Work Phone: 1(595) 575-925102-16-2022 11:21-0500Diastolic blood dlvjrdru16 mm[Hg] Mily Hackett MD Work Phone: mp049-1622PW-Soxpk [facility] DO Work Phone: 1(467) 640-385602-16-2022 11:21-0500Heart rate59 /minMily Hackett MD Work Phone: mp558-1336EI-Orbvz [facility] DO Work Phone: 1(518) 400-674102-16-2022 11:21-0500Systolic blood vtfylpal372 mm[Hg] Mily Hackett MD Work Phone: mp889-2510CW-Bfbav [facility] DO Work Phone: Encounters Encounter DateEncounter TypeCare ProviderFacilityStart: 02-35-5410garthqfxvz Nona TannaFacility:EU BellevueStart: 01-19-2025 End: 21-65-4314Vyrwcghlg Result EncounterGeneric External Data ProviderNOMS External Department UnsolicitedStart: 01-19-2025 End: 84-93-6552Yzeavbyxa Result EncounterGeneric External Data ProviderNOMS External Department UnsolicitedStart: 12-31-2024 End: 75-30-4111Pqumdt flowsRonit Milian DO Work Phone: NO[facility] OrthopaedicsStart: 12-31-2024 End: 72-51-2205Jvegtn flowsRonit Milian DO Work Phone: [facility]opaedicsStart: 12-31-2024 End: 66-72-9411Rndwcuz encounter procedureLazaro Milian DO Work Phone: [facility] [place] [facility] OrthopaedicsComment on above:Right anterior shoulder painStart: 12-31-2024 End: 89-13-5180mexowbqqkaINIXG A BROWNNot AvailableStart: 12-24-2024 End: 54-14-5110Wcrmyj OnlyAmanda Rukhsana LPNProMedica Adult Endocrinology, A Department of [facility] Union HospitalComment on above:Subclinical hypothyroidism (Primary Dx); Vitamin D deficiencyStart: 12-02-2024 End: 47-92-3519fcbqwlfpewIdrmpz TannaFacility:FTMCStart: 12-02-2024 End: 04-93-5775vuazepbovqQueja M. LueFacility:[facility] [place]vueStart: 12-02-2024 End: 14-85-6877Njvomnn encounter procedureAditi Eduardo [facility] start: 10-26-2024 End: 20-98-8341Poywtrrnc encounterDaerica Farnsworth MD Work Phone: [facility] Lg Cardona MedinceStart: 10-06-2024 End: 35-89-7655Nicmjy Yu WILSON Work Phone: [facility] Family MedinceStart: 10-06-2024 End: 20-10-8220Toyagu Yu WILSON Work Phone: [facility] Family MedinceStart: 10-06-2024 End: 88-73-8793Bijddvjg Result EncounterMarla WILSON Work Phone: [facility] External Department UnsolicitedStart: 10-06-2024 End: 37-20-3989Jbrxua outpatient visit 25 minutesMarla WILSON Work Phone: [facility]nceComment on above:Acute cystitis with hematuria (Primary Dx); Urinary urgency; Morbid obesity ([facility])Start: 10-06-2024 End: 08-52-0371kvgysjchiuJYLDJ M HEMMERNot AvailableStart: 09-28-2024 End: 94-64-2144Uxppvf Kristi Farnsworth MD Work Phone: [facility] CI FMStart: 09-28-2024 End: 20-48-3732Idjqjp Kristi Farnsworth MD Work Phone: [facility] CI FMStart: 09-28-2024 End: 90-89-4120Ajknwh outpatient visit 25 minutesNoel Farnsworth MD Work Phone: [facility] CI FMComment on above:Gastroesophageal reflux disease with esophagitis without hemorrhage (Primary Dx); Polyp of colon, unspecified part of colon, unspecified type; Obesity, unspecified class, unspecified obesity type, unspecified whether serious comorbidity present; Other chronic pancreatitis (HCC); Longstanding persistent atrial fibrillation (HCC); DiverticulosisStart: 09-28-2024 End: 48-88-2386hwlxgvbmxbDNZKKW B BERRYNot AvailableStart: 09-22-2024 End: 27-90-3765Nvtayo Bridger Gracia [employer] Work Phone: [facility] CI FMStart: 09-22-2024 End: 43-45-1153Xkbtkk Bridger Gracia [employer] Work Phone: [facility] CI FMStart: 09-22-2024 End: 50-67-0625Kgmuvt outpatient visit 25 minutesDenisha Gracia [employer] Work Phone: [facility] CI FMComment on above:Wound infection (Primary Dx)Start: 09-22-2024 End: 03-16-5244etywulofqtJHHQNMSudhir Reyes AvailableStart: 09-15-2024 End: 57-19-2242ljssbamsobHpebds BerryFacility:[facility] Start: 77-82-8639Srv-patient / Non-visitCatherine L Ly [facility] Work Phone: Start: 08-27-2024 End: 54-17-7975Loejjj outpatient visit 25 minutesMily Hackett MD Work Phone: uh [facility] CenterComment on above:Permanent atrial fibrillation with RVR (Multi) (Primary Dx); Essential hypertension; Anticoagulated; Obstructive sleep apnea syndrome; Edema of both legs; BMI 40.0-44.9, adult (Multi); Former smoker; Morbid obesity (Multi)Start: 08-27-2024 End: 34-14-4156siwngblkouFSQKOM M [facility] AmbulatoryStart: 08-26-2024 End: 98-45-7510oblzzdshzjSQAQJS B BERRYFacility:[facility] BellevueStart: 08-26-2024 End: 04-00-8178Emismfv encounter procedureAditi Eduardo [facility] start: 08-25-2024 End: 00-57-1967boxijndqfvTgsaka BerryFacility:[facility] Start: 08-25-2024 End: 00-65-5291Vleojdcdjo Nohemi Park [facility] Start: 08-24-2024 End: 15-40-2369Vgampf outpatient visit 15 minutesNoel Farnsworth MD Work Phone: NOMS CI FMComment on above:Gastroesophageal reflux disease with esophagitis without hemorrhage (Primary Dx); Alcides esophagitis (HCC); DysuriaStart: 08-24-2024 End: 45-55-3913llbxjybpngYLDEEM B BERRYNot AvailableStart: 08-24-2024 End: 99-58-9248Sbaefm flowsheetNoel Farnsworth MD Work Phone: noMS CI FMStart: 08-24-2024 End: 51-28-6887Tbrsoo Kristi Farnsworth MD Work Phone: NOMS CI FMStart: 23-56-7287udzgspwxdeVlkpjb [place] [facility]uskyStart: 08-17-2024 End: 64-13-4317Aoqwvn outpatient visit 25 minutesNoel Farnsworth MD Work Phone: NOMS CI FMComment on above:Alcides esophagitis (CMS/HCC) (Primary Dx); Dysuria; Gastroesophageal reflux disease with esophagitis without hemorrhage; History of gastric bypassStart: 08-17-2024 End: 14-74-7005rojjirkpwrDPBWLK B BERRYNot AvailableStart: 08-07-2024 End: 75-61-6958Weaamb outpatient visit 25 minutesMarla WILSON Work Phone: NOMS CI FMComment on above:Dysuria (Primary Dx); Acute cystitis with hematuria; Seasonal allergies; Cyst of soft tissueStart: 08-07-2024 End: 66-56-1100wspxbimruwJSWON M HEMMERNot AvailableStart: 07-23-2024 End: 36-08-6950Kbstgopsp Result EncounterMarla WILSON Work Phone: NOMS External Department UnsolicitedStart: 07-23-2024 End: 69-55-5724Npzyjfquu Result EncounterMarla WILSON Work Phone: NOMS External Department UnsolicitedStart: 07-07-2024 End: 54-60-1575Moykyw flowsJennifer WILSON Work Phone: NOMS CI FMStart: 07-07-2024 End: 97-87-4553Ddwiee flowsJennifer Knight PA Work Phone: NOMS CI FMStart: 07-07-2024 End: 80-25-3378Iohlyao encounter procedureMarla WILSON Work Phone: NOMS CI FMComment on above:Medicare annual wellness visit, subsequent (Primary Dx); ACP (advance care planning); Elevated AST (SGOT); Other problems related to lifestyle; Primary hypertension ([facility]); Neck pain; Bilateral carpal tunnel syndrome; Lumbar radiculopathy; Obstructive sleep apnea syndrome; Right cervical radiculopathy; Mild intermittent asthmatic bronchitis without complication ([facility]); Longstanding persistent atrial fibrillation ([facility]); Chronic venous insufficiency; Mitral valve prolapse; Abnormal intestinal absorption ([facility]); Gastroesophageal reflux disease without esophagitis; 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; Right anterior shoulder pain; Senile osteoporosis ([facility]); Hyperparathyroidism ([facility]); Morbid obesity ([facility]); Non-toxic multinodular goiter ([facility]); BMI 40.0-44.9, adult ([facility]); Subclinical hypothyroidism ([facility]); Vitamin B-complex deficiency; Vitamin D deficiency; Other iron deficiency anemia; Thrombocytopenia ([facility]); Other chronic sinusitis; Anticoagulated; Elevated levels of [...] left ear with unrestricted hearing of right earStart: 07-07-2024 End: 79-51-2915iyvoxvpidsAFUBUYeny Kelley AvailableStart: 07-02-2024 End: 06-09-3276Zggljg Talisha Milian DO Work Phone: NOMS ORTHOStart: 07-02-2024 End: 60-11-3073Vdsxxlyoel Milian DO Work Phone: NOMS ORTHOStart: 07-02-2024 End: 75-51-1112Tbuuoft encounter procedureLazaro Milian DO Work Phone: NOMS NB ORTHOComment on above:Complete tear of right rotator cuff, unspecified whether traumatic (Primary Dx)Start: 07-02-2024 End: 80-58-2688uzcwfhowxqMNVHJ Kenzie RUKHSANANot AvailableStart: 06-24-2024 End: 80-33-3968Wknkgi Vidya Park [employer] Work Phone: NOMS CI FMStart: 06-24-2024 End: 20-38-4675Vhbfatyoel Park [employer] Work Phone: NOMS CI FMStart: 06-24-2024 End: 24-19-8335Jddrkv outpatient visit 25 minutesEmily Park [employer] Work Phone: NOMS CI FMComment on above:Acute frontal sinusitis, recurrence not specified (Primary Dx); PND (post-nasal drip)Start: 06-24-2024 End: 28-08-3012zrsoyreyxsYLQGissel Hector AvailableStart: 06-23-2024 End: 26-90-9321Mvhjod outpatient visit 25 minutesTrung Rivas MD Work Phone: proMedjmq Adult Endocrinology, A [facility] of [facility] HospitalComment on above:Subclinical hypothyroidism (Primary Dx); Vitamin D deficiency; Age-related osteoporosis without current pathological fractureStart: 06-23-2024 End: 06-55-2459gkftkbnnbpTBCBRUQTS M GUARDIA-GONZALESUC [facility] Start: 06-09-2024 End: 57-71-5223Mozygaumd Result EncounterGeneric External Data ProviderNOMS External Department UnsolicitedStart: 06-09-2024 End: 86-48-9213Btqrtclro Result EncounterGeneric External Data ProviderNOMS External Department UnsolicitedStart: 05-28-2024 End: 46-47-1475otelmmknucMHJGissel Hector AvailableStart: 04-30-2024 End: 43-25-4656Fiofibcem Park [employer] Work Phone: noms CI FMStart: 04-30-2024 End: 43-60-5232Pssloc Vidya Park [employer] Work Phone: noms CI FMStart: 04-30-2024 End: 94-12-2491etqhsgpfqjPPHGissel Hector AvailableStart: 04-30-2024 End: 90-01-0574Xkrlzw outpatient visit 25 minutesEmily Park [employer] Work Phone: NOMS CI FMComment on above:Cellulitis, unspecified cellulitis site (Primary Dx)Start: 04-16-2024 End: 68-02-1265Ojhqer outpatient visit 25 minutesEmily Park [employer] Work Phone: noMS CI FMComment on above:Acute non-recurrent sinusitis, unspecified location (Primary Dx); Edema of lower extremity; Bariatric surgery status; Unspecified atrial fibrillation (CMS/HCC); Morbid (severe) obesity due to excess calories (CMS/HCC); Body mass index (BMI) 40.0-44.9, adult (CMS/HCC)Start: 04-16-2024 End: 75-71-0794gyjpnfjigcWTKGissel Hector AvailableStart: 04-16-2024 End: 30-08-2580Yguqbd Vidya Park [employer] Work Phone: noms CI FMStart: 04-16-2024 End: 77-26-5059Hcsflm Vidya Park [employer] Work Phone: noms CI FMStart: 03-19-2024 End: 35-44-2040Glyjnxk encounter procedureDaerica Farnsworth II Work Phone: [facility] Work Phone: Start: 03-19-2024 End: 63-55-6858jkfwzwoekrSongev Farnsworth II Work Phone: [facility] Work Phone: Start: 03-18-2024 End: 54-62-6344Fbyjei flowsheetKathleen E Rinkes DO Work Phone: noms SWS OBStart: 03-18-2024 End: 98-96-8582Yaxxyu flowsheetKathleen E Rinkes DO Work Phone: noms SWS OBStart: 03-18-2024 End: 72-29-4786Ehhisg outpatient visit 25 minutesKathleen E Rinkes DO Work Phone: noms [facility] OBComment on above:Vaginal atrophy; Encounter for mammogram to establish baseline mammogramStart: 03-18-2024 End: 85-19-9159dgygzssbpjJOQTXWPY E RINKESNot AvailableStart: 03-12-2024 End: 37-28-1397Rtphep Kristi Farnsworth MD Work Phone: NOMS CI FMStart: 03-12-2024 End: 15-71-8256Tzqurb Kristi Farnsworth MD Work Phone: NOMS CI FMStart: 03-12-2024 End: 56-32-6049Kruvrf outpatient visit 25 minutesNoel Farnsworth MD Work Phone: NOMS CI FMComment on above:Acute non-recurrent sinusitis, unspecified location (Primary Dx); Acute cystitis without hematuria; Anemia, unspecified typeStart: 03-12-2024 End: 51-29-5995ezwljircdwZHHIXW B BERRYNot AvailableStart: 02-28-2024 End: 20-47-5386Jhxsna Kristi Farnsworth MD Work Phone: NOMS CI FMStart: 02-28-2024 End: 67-25-5341Xziubg Kristi Farnsworth MD Work Phone: NOMS CI FMStart: 02-28-2024 End: 66-76-9155Sghtbk outpatient visit 25 minutesNoel Farnsworth MD Work Phone: NOMS CI FMComment on above:Acute non-recurrent sinusitis, unspecified location (Primary Dx); Acute cystitis without hematuria; Anemia, unspecified typeStart: 02-28-2024 End: 09-28-7193xbramxadawGLXYPN B BERRYNot AvailableStart: 01-20-2024 End: 40-24-0860Gxnszsunp Result EncounterGeneric External Data ProviderNOMS External Department UnsolicitedStart: 01-20-2024 End: 63-35-0718Zucecbysu Result EncounterGeneric External Data ProviderNOMS External Department UnsolicitedStart: 01-03-2024 End: 66-97-8087Esrtfz Yu WILSON Work Phone: NOMS CI FMStart: 01-03-2024 End: 01-07-7076Adhuiy Yu WILSON Work Phone: NOMS CI FMStart: 01-03-2024 End: 27-22-2336Hzazva outpatient visit 25 minutesMarla WILSON Work Phone: noMS CI FMComment on above:Acute URI (Primary Dx); Laryngitis; Longstanding persistent atrial fibrillation (CMS/HCC); Right ear impacted cerumenStart: 01-03-2024 End: 94-05-6214hfqpvaahrlOQMYU M HEMMERNot AvailableStart: 01-02-2024 End: 04-09-8711Uwsazqy encounter Andrey Milian DO Work Phone: noms NB ORTHOComment on above:Complete tear of right rotator cuff, unspecified whether traumatic (Primary Dx)Start: 11-28-2023 End: 86-91-8278lwuvaubkkoIWSMBB M [facility] AmbulatoryStart: 11-28-2023 End: 10-97-0845Hmyuug outpatient visit 25 minutesMily Hackett MD Work Phone: uh FirelandsComment on above:Permanent atrial fibrillation with RVR (Multi) (Primary Dx); Anticoagulated; Essential hypertension; Obstructive sleep apnea syndrome; Iron deficiency anemia, unspecified iron deficiency anemia type; Former smoker; BMI 39.0-39.9,adult; Cellulitis of right lower extremity; High risk medication useStart: 11-06-2023 End: 25-55-8367Jluihaurt Result EncounterMarla WILSON Work Phone: NOMS External Department UnsolicitedStart: 11-06-2023 End: 15-12-1272Hsjiwqehq Result EncounterMarla Batista Em PA Work Phone: NOMS External Department UnsolicitedStart: 11-01-2023 End: 98-78-6662Xfehgyduh Result EncounterStamela Gracia [employer] Work Phone: NOMS External Department UnsolicitedStart: 11-01-2023 End: 04-30-5576Szgtqbkqz Result EncounterStamela Gracia [employer] Work Phone: NOMS External Department UnsolicitedStart: 10-29-2023 End: 54-89-0301Zqnwwf flowsheetStamela Gracia [employer] Work Phone: NOMS CI FMStart: 10-29-2023 End: 95-25-2526Ztxcdn flowsClarita Gracia [employer] Work Phone: NOMS CI FMStart: 10-29-2023 End: 89-76-7933Pruxj of hemosiderin, quantShcody Gracia [employer]ERSON Work Phone: NOMS HealthcareStart: 10-29-2023 End: 87-98-3375Rwjqire encounter procedureStamela Gracia [employer] Work Phone: NOMS CI FMComment on above:Medicare annual wellness visit, subsequent (Primary Dx); Bilateral carpal tunnel [...] Vitamin D deficiency; Anemia, unspecified type; Thrombocytopenia (CMS/HCC); Fibrocystic breast changes, unspecified laterality; Hypercalcemia; Hypokalemia; Chronic bilateral low back pain without sciatica; Lymphedema; Seasonal allergies; Sensorineural hearing loss (SNHL) of left ear with unrestricted hearing of right ear; Body mass index (BMI) 40.0-44.9, adult (CMS/HCC); Other thrombophilia ([facility]/HCC); Secondary hyperparathyroidism of renal origin ([facility]/HCC); Primary hyperparathyroidism ([facility]/HCC); Secondary hyperparathyroidism, not elsewhere classified ([facility]); Routine general medical examination at health care facility; Hypomagnesemia; Disorder of left eustachian tubeStart: 06-18-2023 End: 36-45-7675ujcpfhfzvsYIHPSAHHACritical access hospital Ambulatory PPGStart: 05-13-2023 End: 53-73-7522Xfwcep outpatient visit 25 minutesMily Hackett MD Work Phone: uh FirelandsComment on above:Permanent atrial fibrillation with RVR ([facility]) (Primary Dx); Essential hypertension; Hypokalemia; BMI 39.0-39.9,adult; Former smoker; Obstructive sleep apnea; High risk medication useStart: 04-17-2023 End: 50-26-6290Trtwro outpatient visit 15 minutesNoel Farnsworth MD Work Phone: NOMS CI FMComment on above:Acute non-recurrent sinusitis, unspecified locationStart: 47-39-9680Umcqlr flowsAlonso Farnsworth MD Work Phone: NOMS CI FMStart: 10-99-1026Pfglfk Kristi Farnsworth MD Work Phone: NOMS CI FMStart: 03-25-2023 End: 57-27-5545xtljgyntbkPP Daniel Berry Work Phone: [facility] Work Phone: Start: 03-25-2023 End: 43-68-7837Jvrtunm encounter procedureII Noel Farnsworth Work Phone: [facility] Work Phone: Start: 03-07-2023 End: 23-03-8307Jcosavu encounter procedureII Noel Farnsworth Work Phone: [facility] Work Phone: Start: 02-20-2023 End: 06-83-0948qqxaotxcnoWG Noel Farnsworth Work Phone: [facility] Work Phone: Start: 02-20-2023 End: 26-89-0085Enssdrl encounter procedureII Noel Farnsworth Work Phone: [facility] Work Phone: Start: 87-45-6775Bseoakamr encounterDanicolbossman Farnsworth Work Phone: [phone]-Fuobz [facility] [address] DO Work Phone: Start: 39-57-2293Gbuqpl outpatient visit 25 minutes Noel Farnsworth Work Phone: [phone]-Tcbrx [facility] [address] DO Work Phone: Start: 55-37-8412gwlshmqrtfNmDr. Mily Hackett Facility:[id number]: 08-02-2022 End: 97-04-9645ovzztznjxhWI DANIEL BERRYFacility:M1Uujni: 07-09-2022 End: 12-27-8989ntpvsyisaeQUOSON H FAWWADFacility:S6Gdruh: 06-11-2022 End: 28-17-5793paelwdvzieKVGTVE H FAWWADFacility:S3Hrxdf: 06-05-2022 End: 50-66-1924otygzsapxqSXCYZDJOC GUARDIAFacility:C9Ssdko: 32-12-8412bzludmaael Dr. Mily HackettFacility:[address]Ujcfo: 05-09-2022 End: 63-63-1147xrzpliapssRFDDLA H FAWWADFacility:L6Zxgct: 04-24-2022 End: 46-90-3618hquvetlmiyLVVWH LALORFacility:E2Fxaqh: 04-11-2022 End: 34-50-9136sjcugmlsuiYNMKNZ H FAWWADFacility:D9Ghjlo: 03-12-2022 End: 55-86-9707vuzncxnjzxPCPUMV H FAWWADFacility:F7Cnerc: 02-08-2022 End: 82-17-1575nkcxgpibnwGDPGHY H FAWWADFacility:K6Vtuza: 02-05-2022 End: 26-82-5665hywmwpjuvfCMJQK LALORFacility:I3Hwdvs: 02-05-2022 End: 52-79-4418uwyysjtccfYW DOCTOR MISCFacility:B4Rwpbq: 01-17-2022 End: 85-89-5955ykndfasihpCD Noel Farnsworth Work Phone: [facility] Work Phone: Start: 01-17-2022 End: 94-32-3803Xmijvqk encounter procedureII Noel Farnsworth Work Phone: [facility] Start: 01-09-2022 End: 39-31-3993qnrgdmmdhjVZHIAI H FAWWADFacility:H1Ensyx: 12-25-2021 End: 09-36-0614motxejgokjJY Noel Farnsworth Work Phone: [facility] Work Phone: Start: 12-25-2021 End: 81-05-9915Nlikdrsqnt RecurringII Noel Farnsworth Work Phone: [facility]-Quality Systems Manager [address]Start: 02-11-6426Cuxfrodfva RecurringII Noel Farnsworth Work Phone: [facility]-Quality Systems Manager [address] RdStart: 12-10-2021 End: 24-22-8909twbkvayuqxIJKOLQ H FAWWADFacility:F9Liocs: 15-99-4494Oq Chloé Hackett MD Work Phone: [phone]-Dmmru [facility] [address] DO Work Phone: Start: 84-14-6709Ebezhvmyh for general adult medical examination without abnormal findingsDR MILY HACKETTCenterville Start: 11-14-2021 End: 62-01-1344plhwkavqxnZX NOEL FARNSWORTHFacility:W0Ecjjw: 11-14-2021 End: 17-06-4927Jufuvicxa for general adult medical examination without abnormal findingsDR NOEL JAVADFacility:O8Mavfz: 11-10-2021 End: 41-50-7459miaultcvszIQ DANIEL BERRYFacility:P6Okitq: 11-09-2021 End: 51-27-8624hvfvupgbvqWG NOEL JAVADFacility:B4Xmdrc: 11-09-2021 End: 99-88-5345wlzjaupkxsGACPUO H FAWWADFacility:M2Oxxee: 50-11-3377Gmppepvqa encounterMily Hackett MD Work Phone: [phone]-Wtdpg [facility] [address] DO Work Phone: Start: 11-06-2021 End: 55-92-0838rmunxhejosAM NOEL JAVADFacility:Y1Bgivv: 46-40-7565Ublvuu outpatient visit 25 minutesMily Hackett MD Work Phone: [phone]-Jyxts [facility] DO Work Phone: Start: 10-09-2021 End: 00-83-7862lgwlzcpiknQJWTKJ H FAWWADFacility:C4Slkmu: 09-15-2021 End: 82-09-1478gfeylctpepXK NOEL JAVADFacility:E6Sqxvz: 09-08-2021 End: 87-87-3267xmeqgxgblvMJISDQ H FAWWADFacility:R1Wqiwz: 37-26-0317Db Renewal Mily Hackett MD Work Phone: mpLocated Within [facility] [address] DO Work Phone: Start: 08-31-4154Gwjkbx outpatient visit 25 minutes Mily Hackett MD Work Phone: mp-[facility] [address] DO Work Phone: Start: 57-92-9029Qhklgkv encounter procedureMily Hackett MD Work Phone: mp-[facility] [address] DO Work Phone: Start: 12-09-2017 End: 50-49-4813Sbflqse encounter procedureDEFAULT PHYSICIANFacility:[facility]OSPITALtart: 09-16-2017 End: 88-17-9986Mzjqrzw encounter procedureLAURA AM MURPHYFacility:[facility] Procedures DateProcedureProcedure DetailPerforming ClinicianStart: 99-28-3879XPH CBC WITH AUTO DIFFGeneric External Data ProviderStart: 12-31-2024 End: 38-05-0019Ywxjljpqmgifsy aspir&/inj major jt/bursa w/Britta Milian DO Work Phone: Start: 07-83-2711Wzpan dip stick/tablet rgnt non-auto w/o Melinda WILSON Work Phone: Start: 91-74-7763BNNSHDY TRACT INFECTION (HTRX)Marla WILSON Work Phone: Start: 72-71-6624VowsqmvvkxjMkbjrz Germaine [employer] Work Phone: Start: 02-83-9128Oadcr dip stick/tablet rgnt non-auto w/o micrscpDkimberley Farnsworth MD Work Phone: Start: 07-34-5476Bfqzo dip stick/tablet rgnt non-auto w/o Melinda WILSON Work Phone: Start: 17-36-6204NYV LIPID PROFILE (FASTING)Marla WILSON Work Phone: Start: 63-57-6474Aymhqxtknztqps aspir&/inj major jt/bursa w/Britta Milian DO Work Phone: Start: 51-77-8922BZF THYROID STIM HORMONEGeneric External Data ProviderStart: 32-21-2650CLQ CMP (CMP) (FOR [facility])Generic External Data ProviderStart: 03-19-2024 End: 39-28-5112Lqxuqtizx mammography of bilateral breastsDkimberley Farnsworth SALMA Work Phone: Start: 95-44-9929Wrxvs dip stick/tablet rgnt non-auto w/o micrscpDkimberley Farnsworth MD Work Phone: Start: 92-84-6272GES CBC WITH AUTO DIFFGeneric External Data ProviderStart: 70-50-7546PRH FOLIC ACIDGeneric External Data ProviderStart: 65-61-1866QIT MAGNESIUMGeneric External Data ProviderStart: 73-33-5997QMK PHOSPHOROUSGeneric External Data ProviderStart: 32-94-9982ZIZ CMP (CMP) (FOR [facility])Generic External Data ProviderStart: 13-04-5537RYC FERRITINGeneric External Data ProviderStart: 07-74-3737Lwyleuikskiakx vitamin b-12Generic External Data ProviderStart: 98-25-3414BZIPF IRON AND TIBCGeneric External Data ProviderStart: 09-60-9341IDVBX VITAMIN B1, WHOLE BLOODGeneric External Data ProviderStart: 75-60-0155FWM VITAMIN D 25 OHGeneric External Data ProviderStart: 35-88-2036Bihctajaqkmhjh aspir&/inj major jt/bursa w/usLazaro Milian DO Work Phone: Start: 57-71-5469Nevab shoulder complete minimum 2 viewsJason Kenzie Brown DO Work Phone: Start: 53-70-0831CU FOOT RT MIN 3VMarla Knight PA Work Phone: Start: 73-87-7454DSH CBC WITH AUTO DIFFSherri Shannon Gracia NP Work Phone: Start: 40-77-4595Qolt energy X-ray absorptiometryII Noel Javad Work Phone: Start: 02-20-2023 End: 18-04-8393Bxnbempop mammography of bilateral breastsII Noel Javad Work Phone: start: 01-17-2022 End: 64-83-9758Danzgvzjk mammography of bilateral breastsII Noel Javad Work Phone: Start: 00-05-8172MuxpssxnlkyRcjnjz Berry MD Work Phone: Start: 46-14-6586Azbqoqi of thyroidectomyH/O thyroidectomyNoel Farnsworth MD Work Phone: AppendectomyMily Hackett MD Work Phone: Bypass of stomachKathy Ludebbie CholecystectomyMily Hackett MD Work Phone: ColonoscopyAditi Eduardo Decompression of median nerveMily Hackett MD Work Phone: Hemorrhoids (disorder)Aditi Eduardo Herniated structure (morphologic abnormality)Aditi Eduardo History of thyroidectomyH/O thyroidectomyKaren M Em WILSON Work Phone: Ligation of varicose veinMily Hackett MD Work Phone: Operation on skinDanibossman Fanrsworth Work Phone: Operation on stomachMily Hackett MD Work Phone: Release of trigger fingerMily Hackett MD Work Phone: ThyroidectomyMily Hackett MD Work Phone: Tonsillectome (physical object)Aditi Eduardo Total colonoscopyMily Hackett MD Work Phone: Plan of Treatment DateCare ActivityDetailAuthorStart: 85-16-0404Pmbdsthlw for malignant neoplasm of colonNOMS HealthcareStart: 23-61-7147Inknregoj for malignant neoplasm of colonNOMS HealthcareStart: 08-31-2025 End: 63-90-5981Ztpnhgd encounter bkqjnkbni61/ 9:00 AM EDT Office Visit [facility] [address] [facility] [address] [place] [id number] Mily Hackett MD [address] [facility] [address] [place] [address] [facility]Start: 04-29-2026Medicare Annual Wellness (AWV) Medicare Annual Wellness (AWV)[facility]Start: 07-01-2025 End: 35-83-8004Nqnnsrz encounter rzofnfrhq39/23/2026 8:30 AM EDT Office Visit [facility] [address] [place] [id number] Lazaro Milian DO [address] [place] [address] [facility]opa[facility]icsStart: 06-23-2025 Adult BMI ScreeningAdult BMI ScreeningProParkview Health [facility]pel[facility] SystemStart: 06-23-2025 End: 07-22-9718AVN Skeletal system Views for bone densityDexa scan central skeletal Imaging Routine Age-related osteoporosis without current pathological fracture Expected: 06/23/2025, Expires: 06/23/2026ProParkview Health Montpelier Hospital SystemComment on above:Expected: 06/23/2025, Expires: 06/23/2026Start: 48-04-4819Ssczyqf ScreeningTobacco ScreeningProParkview Health [facility]pel[facility] Hospital SystemStart: 06-22-2025 End: 10-88-9909Hxnmioi encounter procedureProElyria Memorial Hospitalca Adult Endocrinology, A Department of [facility] Hospitaltart: 06-09-2025 End: 32-19-8740Zvjxrrjcjwrig metabolic 2000 panel - Serum or PlasmaComprehensive metabolic panel Lab Routine Subclinical hypothyroidism Expected: 06/09/2025, Expires:06/23/2025ProParkview Health Montpelier Hospital SystemComment on above:Expected: 06/09/2025, Expires: 06/23/2025Start: 06-09-2025 End: 76-19-2470Oxnievi profile includes TSH CH2Vfzymys profile includes TSH FT4 Lab Routine Subclinical hypothyroidism Expected: 06/09/2025, Expires: 06/23/2025 [facility] SystemComment on above:Expected: 06/09/2025, Expires: 06/23/2025Start: 06-09-2025 End: 21-43-0970Mvgwsjv D 25 hydroxyVitamin D 25 hydroxy Lab Routine Vitamin D deficiency Expected: 06/09/2025, Expires: 06/23/2025[facility] Work Phone: Comment on above:Expected: 06/09/2025, Expires: 06/23/2025Start: 04-01-2025 End: 46-76-1450Benqbqo encounter procedureNOMS SWS OBStart: 46-70-9494Snjnhwdmu for osteoporosisBone Density ScanSumma HealthStart: 05-77-9695Jclkibpuh for malignant neoplasm of breastMammogramNOMD Healthcare Start: 12-31-2024 End: 59-39-1446Nfcpfze encounter procedureNOMS ORTHOComment on above:Arrived Start: 11-13-2024 End: 84-30-8995Lzvkadl encounter cwtitznni29/05/2025 11:00 AM EDT Office Visit [facility] [place] [address] [facility] [address] [place] [address] Noel Farnsworth MD [address] [facility] [address] [place] [address] [facility] [place] [facility] HospitalnceStart: 11-09-2024 COVID-19 Vaccine ( season)COVID-19 Vaccine ( season) [facility] SystemStart: 67-56-7419Qgodwcxew vaccinationProParkview Health [facility]pel[facility] Hospital SystemStart: 11-06-2024 End: 66-28-5147Tqmtsqs encounter byjxkwonc86/29/2025 9:00 AM EDT Office Visit [facility] [address] [place] [address] Noel Farnsworth MD [address] [facility] [address] [place] [address] [facility] CI FMStart: 08-20-2025Medicare Annual Wellness (AWV) Medicare Annual Wellness (AWV)[facility] HealthcareStart: 10-06-2024 End: 42-81-7884WFDVKAZ TRACT INFECTION (HTRX)URINARY TRACT INFECTION (HTRX) Lab Routine Acute cystitis with hematuria Expected: 10/06/2024 (Approximate), Expires: 10/06/2025[facility] Work Phone: Comment on above:Expected: 10/06/2024 (Approximate), Expires: 10/06/2025Start: 09-28-2024 End: 08-54-1717Sdizhpr encounter procedureNOMS CI FMComment on above:Arrived Start: 09-22-2024 End: 62-92-4666Xbodjtb encounter jagtgrpmp89/15/2025 8:30 AM EDT Office Visit [facility] [address] [facility] [address] [place] [id number] Denisha Gracia NP [address] [facility] [address] [place] [address] ArrivedNOMS CI FMComment on above:ArrivedStart: 28-30-2775CfxfbokkiNewark Hospitaltart: 08-27-2024 End: 93-10-3929Jefzmbi encounter vznlqebml56/19/2025 9:00 AM EDT Office Visit [address] [place] [phone] Mily Hackett MD [address] [place] [address] 2, [address] [place] [address] [facility]: [facility] End: 39-18-0859Qfrgflg encounter procedureNOMS CI FMComment on above:Arrived Start: 08-07-2024 End: 08-50-9810EEUYPOK TRACT INFECTION (HTRX)URINARY TRACT INFECTION (HTRX) Lab Routine Acute cystitis with hematuria Expected: 08/07/2024 (Approximate), Expires: 08/07/2025[facility] Work Phone: Comment on above:Expected: 08/07/2024 (Approximate), Expires: 08/07/2025Start: 07-07-2024 End: 48-65-9753Kpknyim encounter ngfrnruel43/29/2025 9:30 AM EDT Office Visit [facility] [address] [place] [address] [place] [address] Marla Knight PA [address] [place] [address] ArrivedNOMS CI FMComment on above:ArrivedStart: 07-02-2024 End: 54-97-5333Bligpak encounter procedureNOMS NB ORTHOComment on above:Arrived Start: 06-24-2024 End: 58-80-7092Lvwaxqx encounter fubhicjfo60/16/2025 1:30 PM EDT Office Visit [facility] [address] [place] [place] [address] Emily Park, [employer] [address] [place] [place] [address] ArrivedNOMS CI FMComment on above:ArrivedStart: 04-16-2024 End: 19-00-4574Actxsuw encounter /06/2025 3:30 PM EST Office Visit [facility] [address] [place] [address] [place] [address] Emily Park, [employer] [address] [place] [address] ArrivedNOMS CI FMComment on above:ArrivedStart: 03-18-2024 End: 34-64-2929Zwtxyhk encounter procedureNOMS SWS OBComment on above:Vaginal atrophy; Encounter for mammogram to establish baseline mammogramStart: 03-12-2024 End: 31-51-9209Tmmahsx encounter secefhclm18/02/2025 9:00 AM EST Office Visit [facility] [address] [place] [address] Noel Farnsworth MD [address] [place] [address] [place] [address] [facility] CI FMComment on above:ArrivedStart: 02-28-2024 End: 35-57-2677Emokfjdln (Vitamin B12) [Mass/volume] in Serum or PlasmaVitamin B12 Lab Routine Anemia, unspecified type Expected: 02/28/2024 (Approximate), Expires: 02/27/2025[facility] Work Phone: Comment on above:Expected: 02/28/2024 (Approximate), Expires: 02/27/2025Start: 02-28-2024 End: 15-56-3109Qtgske [Mass/volume] in Serum or PlasmaFolate Lab Routine Anemia, unspecified type Expected: 02/28/2024 (Approximate), Expires: 02/27/2025N[facility] HealthcareComment on above:Expected: 02/28/2024 (Approximate), Expires: 02/27/2025Start: 02-28-2024 End: 85-13-2747Bhggjuayfsdki panel - BloodReticulocytes Lab Routine Anemia, unspecified type Expected: 02/28/2024 (Approximate), Expires: 02/27/2025[facility] HealthcareComment on above:Expected: 02/28/2024 (Approximate), Expires: 02/27/2025Start: 02-28-2024 End: 37-55-2513Wxxatzd encounter wheucmypu52/20/2024 9:00 AM EST Office Visit [facility] [address] [place] [address] Noel Farnsworth MD [address] [facility] [address] [place] [address] [facility] CI FMComment on above:ArrivedStart: 02-21-2024 Screening for malignant neoplasm of breastMammogramNOMS HealthcareStart: 12-08-2024Medicare Annual Wellness (AWV)Medicare Annual Wellness (AWV)NOMS HealthcareStart: 01-03-2024 End: 05-44-7452GESDQI RESPIRATORY BACTERIAL/VIRAL INFECTION (HTRX)COMMON RESPIRATORY BACTERIAL/VIRAL INFECTION (HTRX) Lab Routine Acute URI Laryngitis Expected: 01/03/2024 (Approximate), Expires: 01/02/2025[facility] Work Phone: Comment on above:Expected: 01/03/2024 (Approximate), Expires: 01/02/2025Start: 01-03-2024 End: 08-89-0212Axkmtln encounter procedureNOMS FMComment on above:Arrived Start: 01-02-2024 End: 10-44-9770Drttoii encounter mbnymvzyf39/24/2024 9:00 AM EDT Office Visit [facility] [address] [address] Lazaro Milian DO [address] [place] [address] [facility] ORTHOStart: 11-28-2023 End: 04-55-7306Xcwbneh encounter mskqbwqil76/19/2024 9:30 AM EDT Office Visit [facility] [address] [facility] [address] [place] [address] Mily Hackett MD [address] [facility] 2, [address] [place] [address] [facility] CenterStart: 77-87-6397VVEIG-19 Vaccine ( season)COVID-19 Vaccine ( season)[facility] Start: 26-86-5266RVHOI-19 Vaccine ( season)COVID-19 Vaccine ( season)[facility] HospitalHexaditeNew Prague Hospital SystemStart: 54-98-6492Cyarjcyfi vaccination Influenza Vaccine (#1)[facility] HealthcareStart: 10-29-2023 End: 70-27-147911758740-hurrmplkrujtwh D3 [Mass/volume] in Serum or PlasmaVitamin D 25 hydroxy Lab Routine Vitamin D deficiency Expected: 10/29/2023 (Approximate), Expires: 10/28/2024[facility] HealthcareComment on above:Expected: 10/29/2023 (Approximate), Expires: 10/28/2024Start: 10-29-2023 End: 12-53-0715LLZ panel - Blood by Automated countCBC Lab Routine Atrial fibrillation, unspecified type ([facility]) Chronic venous insufficiency Primary hypertension ([facility]) Gastroesophageal reflux disease without esophagitis Seasonal allergies Medicare annual wellness visit, subsequent Expected: 10/29/2023 (Approximate), Expires: 10/28/2024[facility] HealthcareComment on above: Expected: 10/29/2023 (Approximate), Expires: 10/28/2024Start: 10-29-2023 End: 99-17-5820Dsdxecnvtmcys metabolic 2000 panel - Serum or PlasmaComprehensive metabolic panel Lab Routine Primary hypertension ([facility]) Hypercalcemia Hypokalemia Primary hyperparathyroidism ([facility]) Medicare annual wellness visit, subsequent Expected: 10/29/2023 (Approximate), Expires: 10/28/2024MD HealthcareComment on above:Expected: 10/29/2023 (Approximate), Expires: 10/28/2024Start: 10-29-2023 End: 55-66-7691Dkwopetkj [Mass/volume] in Serum or PlasmaMagnesium Lab Routine Hypomagnesemia Expected: 10/29/2023 (Approximate), Expires: 10/28/2024[facility] HealthcareComment on above:Expected: 10/29/2023 (Approximate), Expires: 10/28/2024Start: 10-29-2023 End: 85-87-7956Hjfygucxcyt [Units/volume] in Serum or PlasmaTSH Lab Routine Non- toxic multinodular goiter ([facility]) Medicare annual wellness visit, subsequent E xpected: 10/29/2023 (Approximate), Expires: 10/28/2024[facility] Work Phone: Comment on above:Expected: 10/29/2023 (Approximate), Expires: 10/28/2024Start: 10-29-2023 End: 89-40-7738Evvaxgj encounter procedureNOMS CI FMComment on above:Arrived Start: 10-13-2023 End: 76-94-4270Kzgrs metabolic 2000 panel - Serum or PlasmaBasic Metabolic Panel Lab Routine Permanent atrial fibrillation with RVR (CMS/HCC) Essential hyperte nsion Hypokalemia Expected: 10/13/2023, Expires: 05/12/2024[facility] Service Area Work Phone: Comment on above:Expected: 10/13/2023, Expires: 05/12/2024Start: 10-13-2023 End: 49-73-8750UDY panel - Blood by Automated countCBC Lab Routine Permanent atrial fibrillation with RVR (CMS/HCC) Essential hypertension Hypokalemia Expected: 10/13/2023, Expires: 05/12/2024[facility] Work Phone: Comment on above:Expected: 10/13/2023, Expires: 05/12/2024Start: 07-25-2023 End: 92-13-0423Ngiyvlh encounter lwribiduf15/16/2024 9:30 AM EDT Office Visit [facility] [address] [place] [address] Lazaro Milian DO [address] [place] [address] [facility] ORTHOStart: 05-01-2023 End: 11-70-9179Lhcsddk encounter voarirqcm70/21/2024 9:30 AM EST Office Visit [facility] [address] [facility] [address] [place] [address] Noel Farnsworth MD [address] [facility] [address] [place] [address] [facility] CI FMStart: 26-94-6349AOR, Provider: Mily Hackett, Status: Pen, Time: 9:30 AMFUV, Provider: Mily Hackett, Status: Pen, Time: 9:30 [facility] [address] DO Work Phone: Start: 04-17-2023 End: 59-46-5348Rvjnvif encounter eeeabxtfl17/07/2024 2:15 PM EST Office Visit [facility] [address] [facility] [address] [place] [address] Noel Farnsworth MD 112 [facility] [address] [place] [address] ArrivedNOMD CI FMComment on above:ArrivedStart: 01-17-2023 Screening for malignant neoplasm of breastMammogramNOMD HealthcareStart: 03-47-0396YHVXT-19 Vaccine ( season)COVID-19 Vaccine ( season)[facility]: 28-34-1479Spkreibmf vaccination Influenza Vaccine (#1)[facility] HealthcareStart: 60-27-3482PYA, Provider: Mily Hackett, Status: Pen, Time: 9:20 AMFUV, Provider: Mily Hackett, Status: Pen, Time: 9:20 AMMP-[facility] [employer] 250 DO Work Phone: Start: 10-19-0004GKA, Provider: Mily Hackett, Status: Pen, Time: 9:30 AMFUV, Provider: Mily Hackett, Status: Pen, Time: 9:30 AMMP-[facility] [employer] 250 DO Work Phone: Start: 24-01-2213Pluc Risk ScreeningFall Risk ScreeningUniversity Hospitals Health System SystemStart: 19-67-9386Rjprvxoitjau Vaccine: 65+ Years (1 - PCV)Pneumococcal Vaccine: 65+ Years (1 - PCV)[facility]: 95-64-6432DEA High Risk: (Elderly (60+) or Population) (1 - Risk 60-74 years 1-dose series)RSV High Risk: (Elderly (60+) or Population) (1 - Risk 60-74 years 1-dose series)[facility]: 66-14-2585OEB patients and/or patients aged 60+ years (1 - 1-dose 60+ series)RSV patients and/or patients aged 60+ years (1 - 1-dose 60+ series)[facility]: 2004 Administration of varicella zoster vaccineZoster (Shingles) Vaccine (1 of 2) [facility] SystemStart: 04-25-7797Hrjztp Vaccines (1 of 2)Zoster Vaccines (1 of 2)[facility]: 71-10-2153XLwN/Tdap/Td Vaccines (1 - Tdap)DTaP/Tdap/Td Vaccines (1 - Tdap)[facility] Start: 44-81-8362ACdO,Tdap and Td Vaccines (1 - Tdap)DTaP,Tdap and Td Vaccines (1 - Tdap)[facility]: 83-11-6093Czskdweckrsf vaccination Pneumococcal Vaccine (1 of 2 - PCV)[facility]: 71-54-4087Mumimirifnwm Vaccine: 65+ Years (1 of 2 - PCV)Pneumococcal Vaccine: 65+ Years (1 of 2 - PCV)[facility] HealthcareStart: 09-61-6674Qxzavmms mellitus screeningDiabetes ScreeningUnMercy Health St. [facility]: 1973 Hepatitis C screeningHepatitis C ScreeningUnHarrison Community Hospital Start: 69-85-5671Sofyehbfud ScreeningDepression ScreeningUniversity Hospitals Health System System Start: 41-81-7180Qibslbruairw Vaccine: 65+ Years (1 - PCV)Pneumococcal Vaccine: 65+ Years (1 - PCV)[facility] HealthcareStart: 67-78-6422Skajbgsikaqb Vaccine: 65+ Years (1 of 2 - PCV)Pneumococcal Vaccine: 65+ Years (1 of 2 - PCV)[facility] HealthcareStart: 26-50-7667Mlchi panelLipid PanelUnMercy Health St. [facility]: 07-14-1956Medicare Annual Wellness VisitMedicare Annual Wellness Visit (AWV)[facility]: 29-26-0508Bzjwdksku for malignant neoplasm of colonNOMS HealthcareCBC W Auto Differential panel - Blood CBC and differential Lab Routine Anemia, unspecified type Ordered: 02/28/2024 [facility] HealthcareComment on above:Ordered: 02/28/2024 End: 78-05-2214Vcmkwjaiapgzm metabolic 2000 panel - Serum or PlasmaComprehensive metabolic panel Lab Routine Subclinical hypothyroidism Vitamin D deficiency 1 Occurrences starting 12/24/2024 until 12/24/2025ProAn[employer] SystemComment on above:1 Occurrences starting 12/24/2024 until 12/24/2025DBT Breast - bilateral screeningBilateral screening mammogram with tomosynthesis Imaging Routine Encounter for mammogram to establish baseline mammogram Ordered: 03/18/2024[facility] Healthcare Work Phone: comment on above:Ordered: 03/18/2024HEPATITIS C AB W/RFL RNS, PCR W/RFL GENOTYPE,LIPAHEPATITIS C AB W/RFL RNS, PCR W/RFL GENOTYPE,LIPA Lab Routine Medicare annual wellness visit, subsequent Other problems related to lifestyle Ordered: 07/07/2024[facility] Healthcare Work Phone: Comment on above:Ordered: 07/07/2024Lipid 1996 panel - Serum or PlasmaLipid panel Lab Routine Medicare annual wellness visit, subsequent Elevated AST (SGOT) Primary hypertension (CMS/HCC) Ordered: 07/07/2024[facility] HealthcareComment on above:Ordered: 07/07/2024Patient Education Hemorrhoids Colon polyps Know your [facility] Work Phone: End: 43-60-5731Kjdougq profile includes TSH UD6Dusufyx profile includes TSH FT4 Lab Routine Subclinical hypothyroidism 1 Occurrences starting 12/24/2024 until 12/24/2025[facility] Work Phone: comment on above:1 Occurrences starting 12/24/2024 until 12/24/2025 End: 74-68-3756Cvhdqxq D 25 hydroxyVitamin D 25 hydroxy Lab Routine Vitamin D deficiency 1 Occurrences starting 12/24/2024 until 12/24/2025ProElyria Memorial HospitalSiteskin Web Solution SystemComment on above:1 Occurrences starting 12/24/2024 until 12/24/2025 Immunizations Immunization DateImmunizationNotesCare ScqipssuHguftdqr56-01-6720Dpobwd-QocICwkl COVID-19 Vacc 30 MCG/0.3ML Intramuscular SuspensionMily Hackett MD Work Phone: [facility]04-22-2021Pfizer- BioNTech COVID-19 Vacc 30 MCG/0.3ML Intramuscular SuspensionMily Hackett MD Work Phone: [phone]-Ajgpq [facility] [address] DO Work Phone: [phone]-PqvTOnws COVID-19 Vacc 30 MCG/0.3ML Intramuscular SuspensionMily Hackett MD Work Phone: [facility]10-29-2012influenza, seasonal, injectable, preservative Herminia Farnsworth MD Work Phone: [facility] CenterQgrscclqoc92-82-8747lstayblkr virus vaccine, unspecified formulationNoel Farnsworth MD Work Phone: [facility] Payers DatePayer CategoryPayerPolicy [id number] [id number] 2023Medicare [id number] 2023Medicare (Managed Care) [id number] [id number] [id number] 1960Private Health Insurance [id number] [id number] 2.16.840.1.386021.3.579.2.08-18-3879Svpdlhq53228123 2.16.840.1.628370.3.579.[id number] 2.16.840.1.393127.3.57[id number] 2.16.840.1.458998.3.579.2.86676-42-7422Komigap6111749 2.16.840.1.803553.3.579.2.04059-97-1682Vwgqxnv2383019 2.16.840.1.819352.3.579.2.88422-03-8432Pgihyhs3053717 2.16.840.1.694177.3.579.2.96286-59-5314Etemcrn1660001 2.16.840.1.476692.3.579.2.11719-72-3473Oxrwxgl4375739 2.16.840.1.391537.3.579.2.38154-74-4846Dwbctuj3180682 2.16.840.1.831469.3.579.2.03898-44-5715Sotjhjn0123041 2.16840.1.806156.3.579.2.18742-56-0930Vjciryt8093707 2.16.840.1.621889.3.579.2.64544-72-2980Iaulidw2186087 2.16.840.1.844029.3.579.2.41132-37-3376Gsplusx7304716 2.16840.1.771292.3.579.2.60959-18-7344Emlfynm7356454 2.16.840.1.102331.3.579.2.06016-97-4457Rlyzbgx7660366 2.16.840.1.916005.3.579.2.22092-88-5358Omfynel1968888 2.16.840.1.167956.3.579.2.28652-16-7361Spwquil0799157 2.16.840.1.930989.3.579.2.54951-15-1522Rmcudlc5859023 2.16.840.1.158312.3.579.2.87081-78-7401Mwrqddi4255695 2.16.840.1.845178.3.579.2.99216-88-2155Ubclfhw0233697 2.16.840.1.251242.3.579.2.64497-03-4279Lizntiz7313970 2.16.840.1.703387.3.579.2.79153-82-2538Lfygzsy2802941 2.16.840.1.983643.3.579.2.71028-36-5287Llliagw995191262 2.16.840.1.812978.3.579.2.87654-32-7574Hmruckf820814440 2.16840.1.076915.3.579.2.89563-73-4589Agsjhev74423643 2.16.840.1.435946.3.579.2.794242-65-7821Wwnovld112833982 2.16.840.1.904576.3.579.2.806619-28-0746Prjypfx328992520 2.16.840.1.375539.3.579.2.051664-96-1544Ozzfscx69258620 2.16.840.1.851805.3.579.2.648916-51-5407Uwhmyif36485967 2.16.840.1.520397.3.579.2.32292-63-1635Qmcjzco50020230 2.16.840.1.754886.3.579.2.65909-46-4328Tdewfbj26368216 2.16.840.1.480594.3.579.2.00431-49-7739Mvgcwrd07786347 2.16.840.1.290884.3.579.2.09663-04-5684Nmxgpro60692985 2.16.840.1.756627.3.579.2.38400-04-7943Nnvokwt23169678 2.16.840.1.675735.3.579.2.492915-56-1677Eziygax96903808 2.16.840.1.097020.3.579.2.981000-91-3225Usgrjck10321010 2.16.840.1.511423.3.579.2.333952-62-4721Jtucurq51198977 2.16.840.1.148125.3.579.2.874969-46-4614Hntrwjl39210309 2.16.840.1.412987.3.579.2.914211-17-5966Sgjabqt20285600 2.16.840.1.878771.3.579.2.693782-83-4064Jgeginx1728582 2.16.840.1.558223.3.579.2.747326-87-8697Ogboxix5704537 2.16.840.1.128810.3.579.2.622831-02-7309Pdycfra2902447 2.16.840.1.045643.3.579.2.019745-73-1190Kjgbcnz4696981 2.16.840.1.555222.3.579.2.935800-34-1016Qhllpsy2026972 2.16840.1.490370.3.579.2.297130-12-1928Kodjsfm3608730 2.16.840.1.542513.3.579.2.636631-49-7843Uuwxjzp5261226 2.16.840.1.212786.3.579.2.998770-79-1976Rekzveq7573138 2..840.1.405763.3.579.2.892669-28-9919Igpqdsn4771927 2.16.840.1.423488.3.579.2.794790-67-6939Gxasawd5364212 2..0.1.026833.3.579.2.498958-45-7113Kchzcen3061040 2.16.840.1.474142.3.579.2.1259Blue [facility] Ul[facility] Medical [id number] [id number] 1vwke760-[id number]-[id number] Qsbuhwd21402528 2.840.1.799626.3.579.2.979Gsgmcnj31288223 2.0.1.630501.3.579.2.386Ilipyax96435333 2.840.1.954876.3.579.2.531 Social History DateTypeDetailFacilityStart: 04-17-2023 End: 00-31-8120Yipkvd alcohol useSocial alcohol useNOMS HealthcareStart: 96-47-4120Hoc Assigned At BirthBrown Memorial Hospitaltart: 10-18-2022 End: 90-55-9761Htwbvnr smoking status NHISNever smoked tobaccoNOMS Healthcare Start: 06-13-2022 End: 82-08-5001Najlcwi use and exposureSmokeless tobacco non-userNOMS Healthcare Start: 04-17-2023 End: 56-63-4149Vtkmfeh intakeLifetime non-drinker (finding)[facility] HealthcareStart: 04-17-2023 End: 78-54-9335Wlfblhh use panelNOMS HealthcareStart: 90-89-7306Ccayjsa Comment caffeine: noneNOMS HealthcareStart: 85-91-4102Oph Assigned At BirthNot on file [facility] HealthcareStart: 06-13-2022 End: 20-90-8741Mpyxbtl smoking status NHISEx-smokerUnHarrison Community Hospital Work Phone: End: 74-29-6757Rurzvzc of tobacco useCurrent smokerUnHarrison Community Hospital Work Phone: End: 93-46-1789Wdpmfqc of tobacco useCigarette SmokerUnHarrison Community Hospital Work Phone: Start: 05-13-2023 End: 05-50-4666Dnnoljj intakeCurrent drinker of alcohol (finding)[facility] Work Phone: Start: 35-09-8471Gflodxc CommentsocialSumma Health Work Phone: Start: 05-03-2023 End: 38-46-6451Vongfvgr to SARS-CoV-2 (event)Not sureSumma HealthTobaintegris grove hospital – grove smoking status NHISUnknown if ever smokedDayton Va Medical Center Work Phone: Start: 10-14-2014 End: 85-04-5976VixSfaqrt (finding)[facility] Hospital[facility]art: 84-82-9250DcrnxtmrdFxwtilqKjcJtujlm Health SystemStart: 63-74-7353Crdamvh Tqmtdsy95 years agoProRegional Medical Center [facility] Health SystemStart: 16-59-9010Rreihyq Commentmaybe 2 a monthProRegional Medical [facility] Health SystemSexual OrientationExecutive [facility] Functional Status EodnMravknlygnBhlyxbVnyeuwes67-80-3264Fyhuqbe Health Questionnaire 2 item (PHQ- 2) [Reported][facility] CenterXgvddlwrzg40-59-7664Ggpufrs Health Questionnaire 2 item (PHQ- 2) [Reported][facility] Medical CenterCojhcjswcz00-02-8703Dybwjjz Health Questionnaire 2 item (PHQ- 2) [Reported][facility] Medical CenterDxqtcyyuvp00-09-2162Nidnjcn Health Questionnaire 2 item (PHQ- 2) [Reported][facility] Medical CenterRdgsbvgwfz92-05-8224Tgusqri Health Questionnaire 2 item (PHQ- 2) [Reported][facility] Medical CenterCopjfukenb23-95-9422Mijmdik Health Questionnaire 2 item (PHQ- 2) [Reported][facility] Medical CenterImbpreubhb96-32-3827Xhxgrzq Health Questionnaire 2 item (PHQ- 2) [Reported][facility] Medical CenterAttkflvgzg17-91-2991Hinjunq Health Questionnaire 2 item (PHQ- 2) [Reported][facility] Clinical Notes 09-15-2021 to 12-31-2024 Note Date & NghqGzfaUdfquudb59-32-4718 History of Present illness Narrative* FRANCK Morel - 12/31/2024 9:15 AM EDTAssociated Order(s): L Inj/Asp: R glenohumeral; L Inj/Asp: R subacromial bursa Post-Procedure Diagnose(s): Right anterior shoulder pain L Inj/Asp: R glenohumeral on 12/31/2024 9:39 AM Indications: pain Details: 25 G needle, ultrasound-guided Medications: 1 mL betamethasone acetate-betamethasone sodium phosphate 6 (3-3) MG/ML Consent was given by the patient. L Inj/Asp: R subacromial bursa on 12/31/2024 9:39 AM Indications: pain Details: 25 G needle, ultrasound-guided Medications: 1 mL betamethasone acetate-betamethasone sodium phosphate 6 (3-3) MG/ML Consent was given by the patient. * Lazaro Milian DO - 12/31/2024 9:15 AM EDT Images from the original note were not included. @ENCDATE@ Marla Espino Terell is a 69 y.o. female who presents for Follow-up of the Right Shoulder HPI: History of Present Illness The patient is a 69-year-old right-hand dominant female who presents today for evaluation of her right shoulder. She received a cortisone injection on 01/02/2024, with the last injection administeredon 07/02/2024. She reports that the effects of the cortisone injection lasted for approximately 6 months. She is able to tolerate the pain. Additionally, she mentions that her left shoulder has begun to exhibit similar symptoms. Despite this, she maintains the ability to raise her arm above her head, although sheexercises caution and keeps it close to her body. SUBJECTIVE: MEDICATIONS: Current Outpatient Medications Medication Instructions Ascorbic Acid (vitamin C) 1000 MG tablet aspirin 81 MG EC tablet 1 tablet, Daily calcium carbonate 600 mg, Daily RT cholecalciferol (Vitamin D-3) 1.25 MG (48233 UT) capsule Take one capsule daily Copper Gluconate 2 MG tablet 1 tablet, Daily RT Estrace 0.1 MG/GM vaginal cream See Instructions, 42.5 gm, Refill(s) 6, Apply pea-sized amount around urethra and inside vagina 3 times per week at night for one month then 2 times per week after formaintenance., [facility]/pharmacy #[id number] famotidine (Pepcid) 20 MG tablet ferrous sulfate 325 mg, Oral, 2 times daily fluticasone (Flonase) 50 MCG/ACT nasal spray 1 spray, Each Nostril, Daily, Shake gently. Before first use, prime pump. After use, clean tip and replace cap. MAGNESIUM PO 250 mg, Daily RT metoprolol tartrate (LOPRESSOR) 25 mg, Oral, Every 12 hours [place]-3 Fatty Acids (Fish Oil) 1200 MG capsule delayed-release potassium chloride CR (Klor-Con M20) 20 MEQ ER tablet spironolactone (ALDACTONE) 25 mg, 2 times daily torsemide (Demadex) 20 MG tablet TAKE 1 TABLET BY MOUTH EVERY DAY Turmeric 500 MG tablet 1 tablet, Daily RT Voquezna 20 mg, Oral, Daily warfarin (Coumadin) 2.5 MG tablet warfarin (Coumadin) 5 MG tablet Every 24 hours zinc gluconate 50 mg, Daily RT ALLERGIES: Allergies[1] SURGICAL HISTORY: Surgical History[2] FAMILY HISTORY: Family History[3] SOCIAL HISTORY: Social History[4] Depression: Not at risk (10/06/2024) PHQ-2 PHQ-2 Score: 0 REVIEW OF SYMPTOMS: Review of Systems The review of systems, history and current medications list are all reviewed today. OBJECTIVE: Visit Vitals Ht 5' 4 Wt 232 lb BMI 39.82 kg/m Smoking Status Never BSA 2.18 m Physical Exam Alert and oriented, no [...] rotation, resisted supination, or forward flexion. Negative [place]'s. Positive Neer/Keita impingement. No tenderness over the AC joint. Negative cross-arm adduction. Negative Speed's and Yergason's. No instability. Ortho Exam Results ASSESSMENT AND PLAN: I reviewed the history, physical exam, diagnostic studies, and diagnosis with the patient. Assessment & Plan 1. Rotator cuff tear, SLAP tear, biceps tendinosis right shoulder. Received a cortisone injection on 07/02/2024, providing relief for approximately six months. She prefers to tolerate the pain as long as possible. It was discussed that up to three cortisone injections per year could be administered if needed. A cortisone injection was given today. A limited ultrasound examination of the right shoulder was performed. The patient's hand was placedin the lap in the supinated position. The biceps tendon, subscapularis, and pectoralis major were visualized at the anterior aspect of the shoulder. The acromioclavicular joint was then identified atthe superior aspect of the shoulder. The patient's [...] adjacent to the supraspinatus. A mixture of 1 mL of 1% plain lidocaine and1 mL of betamethasone was then injected. The patient's arm was then placed back at the side and theprobe was moved to the posterior aspect of the shoulder. The glenohumeral joint was visualized. Thearea was prepped with alcohol and betadine. Using ultrasound guidance, a new 25 gauge 1-1/2 inch needle was inserted into the glenohumeral joint from a posterior approach. A mixture of 1 mL of 1% plain lidocaine and 1 mL of betamethasone was then injected. The patient tolerated this well. A Band-Aid was applied. The patient was instructed to ice the shoulder and to watch for any signs of infection including redness, increased pain, drainage from the injection site, fever, chills, etc. The patient was instructed to call the office if he/she experiences any adverse reaction to the injection. Follow-up: In 6 months or sooner if necessary. A total of 30 to 39 minutes was spent on this patient encounter which included chart review, check in, nurse triage, history taking, physical examination, diagnostic study review, patient counseling and discussion, entering information into the patient's medical record, and coordinating patient care. Diagnoses and all orders for this visit: Right anterior shoulder pain - L Inj/Asp: R glenohumeral - L Inj/Asp: R subacromial bursa Lazaro Milian D.O. Attestation This note was created using voice recognition through [employer] artificial intelligence. [1] Allergies Allergen Reactions Chlorzoxazone Hives and Unknown Gabapentin Unknown [2] Past Surgical History: Procedure Laterality Date * CT SCAN : SINUS 2011 mucoperiosteal thickeing maxillaty sinues CARDIOVERSION 11/2014 CARPAL TUNNEL RELEASE Bilateral right (2000), left (2002) COLONOSCOPY 2001, 2005, 2013 COLONOSCOPY W/ POLYPECTOMY 09/15/2024 CT SCAN : HEAD WITH AND WITHOUT CONTRANST 2011 DILATION AND CURETTAGE 2005 EGD 03/30/2020 EGD 09/15/2024 With Biopsy GASTRIC BYPASS 1997 HERNIA REPAIR 2000 LASIK 2000 eye OTHER SURGICAL HISTORY 1999 tummy tuck THYROIDECTOMY, PARTIAL TRIGGER FINGER RELEASE Bilateral VEIN LIGATION AND STRIPPING Right [3] Family History Problem Relation Name Age of Onset Diabetes Mother Stroke Mother Heart disease Mother Heart failure Mother Diabetes Father Stroke Father Parkinsonism Father Multiple sclerosis Father Tongue cancer Brother Colon cancer Maternal Cousin Melanoma Neg Hx [4] Social History Tobacco Use Smoking status: Never Smokeless tobacco: Never Vaping Use Vaping status: Never Used Substance Use Topics Alcohol use: Never Comment: caffeine: none Drug use: Never documented in this encounterSaint [facility] [id number] Hospital Discharge instructions Patient Education 12/02/2024 09:27:51 Hematuria, Adult Hematuria, Adult Hematuria is blood in the urine. Blood may be visible in the urine, or it may be identified with a test. This condition can be caused by infections of the bladder, urethra, kidney, or prostate. Otherpossible causes include: Kidney stones. Cancer of the urinary tract. Too much calcium in the urine. Conditions that are passed from parent to child (inherited conditions). Exercise that requires a lot of energy. Infections can usually be treated with medicine, and a kidney stone usually will pass through your urine. If neither of these is the cause of your hematuria, more tests may be needed to identify the cause of your symptoms. It is very important to tell your health care provider about any blood in your urine, even if it ispainless or the blood stops without treatment. Blood in the urine, when it happens and then stops and then happens again, can be a symptom of a very serious condition, including cancer. There is no pain in the initial stages of many urinary cancers. Follow these instructions at home: Medicines Take ighu-vna-xivlwmo and prescription medicines only as told by your health care provider. If you were prescribed an antibiotic medicine, take it as told by your health care provider. Do notstop taking the antibiotic even if you start to feel better. Eating and drinking Drink enough fluid to keep your urine pale yellow. It is recommended that you drink 3 4 quarts (2.83.8 L) a day. If you have been diagnosed with an infection, drinking cranberry juice in addition tolarge amounts of water is recommended. Avoid caffeine, tea, and carbonated beverages. These tend to irritate the bladder. Avoid alcohol because it may irritate the prostate (in males). General instructions If you have been diagnosed with a kidney stone, follow your health care provider's instructions about straining your urine to catch the stone. Empty your bladder often. Avoid holding urine for long periods of time. If you are female: ?After a bowel movement, wipe from front to back and use each piece of toilet paper only once. ?Empty your bladder before and after sex. Pay attention to any changes in your symptoms. Tell your health care provider about any changes or any new symptoms. It is up to you to get the results of any tests. Ask your health care provider, or the department that is doing the test, when your results will be ready. Keep all follow-up visits. This is important. Contact a health care provider if: You develop back pain. You have a fever or chills. You have nausea or vomiting. Your symptoms do not improve after 3 days. Your symptoms get worse. Get help right away if: You develop severe vomiting and are unable to take medicine without vomiting. You develop severe pain in your back or abdomen even though you are taking medicine. You pass a large amount of blood in your urine. You pass blood clots in your urine. You feel very weak or like you might faint. You faint. Summary Hematuria is blood in the urine. It has many possible causes. It is very important that you tell your health care provider about any blood in your urine, even ifit is painless or the blood stops without treatment. Take bgtf-rei-gwvjqsp and prescription medicines only as told by your health care provider. Drink enough fluid to keep your urine pale yellow. This information is not intended to replace advice given to you by your health care provider. Make sure you discuss any questions you have with your health care provider. Document Revised: 10/26/2020 Document Reviewed: 10/26/2020 [employer] Patient Education 2023 [employer]. Follow Up Care 08/26/2024 11:20:41 With:Jayce TIJERINA, PORFIRIO Fenton, URO Address: When: Unknown [facility] 09-24-2025 NotePatient Education Urology Hematuria, Adult Hematuria is blood in the urine. Blood may be visible in the urine, or it may be identified with a test. This condition can be caused by infections of the bladder, urethra, kidney, or prostate. Otherpossible causes include: ??? Kidney stones. ??? Cancer of the urinary tract. ??? Too much calcium in the urine. ??? Conditions that are passed from parent to child (inherited conditions). ??? Exercise that requires a lot of energy. Infections can usually be treated with medicine, and a kidney stone usually will pass through your urine. If neither of these is the cause of your hematuria, more tests may be needed to identify the cause of your symptoms. It is very important to tell your health care provider about any blood in your urine, even if it ispainless or the blood stops without treatment. Blood in the urine, when it happens and then stops and then happens again, can be a symptom of a very serious condition, including cancer. There is no pain in the initial stages of many urinary cancers. Follow these instructions at home: Medicines ??? Take qplf-xae-ukrufro and prescription medicines only as told by your health care provider. ??? If you were prescribed an antibiotic medicine, take it as told by your health care provider. Donot stop taking the antibiotic even if you start to feel better. Eating and drinking ??? Drink enough fluid to keep your urine pale yellow. It is recommended that you drink 3?4 quarts (2.8?3.8 L) a day. If you have been diagnosed with an infection, drinking cranberry juice in addition to large amounts of water is recommended. ??? Avoid caffeine, tea, and carbonated beverages. These tend to irritate the bladder. ??? Avoid alcohol because it may irritate the prostate (in males). General instructions ??? If you have been diagnosed with a kidney stone, follow your health care provider's instructionsabout straining your urine to catch the stone. ??? Empty your bladder often. Avoid holding urine for long periods of time. ??? If you are female: ? After a bowel movement, wipe from front to back and use each piece of toilet paper only once. ? Empty your bladder before and after sex. ??? Pay attention to any changes in your symptoms. Tell your health care provider about any changesor any new symptoms. ??? It is up to you to get the results of any tests. Ask your health care provider, or the department that is doing the test, when your results will be ready. ??? Keep all follow-up visits. This is important. Contact a health care provider if: ??? You develop back pain. ??? You have a fever or chills. ??? You have nausea or vomiting. ??? Your symptoms do not improve after 3 days. ??? Your symptoms get worse. Get help right away if: ??? You develop severe vomiting and are unable to take medicine without vomiting. ??? You develop severe pain in your back or abdomen even though you are taking medicine. ??? You pass a large amount of blood in your urine. ??? You pass blood clots in your urine. ??? You feel very weak or like you might faint. ??? You faint. Summary ??? Hematuria is blood in the urine. It has many possible causes. ??? It is very important that you tell your health care provider about any blood in your urine, even if it is painless or the blood stops without treatment. ??? Take wizw-xjl-pqnuizq and prescription medicines only as told by your health care provider. ??? Drink enough fluid to keep your urine pale yellow. This information is not intended to replace advice given to you by your health care provider. Make sure you discuss any questions you have with your health care provider. Document Revised: 10/26/2020 Document Reviewed: 10/26/2020 [employer] Patient Education ? 2023 [employer].[facility] 10-26-2024 Telephone encounter Note* Telephone Encounter - KATIE Parker - 10/26/2024 2:59 PM EDT Zithromax [facility] for pt [facility] [id number] Miscellaneous Notes* Telephone Encounter - KATIE Parker - 10/26/2024 2:59 PM EDT Zithromax sent in for pt * Telephone Encounter - Beena Khan - 10/26/2024 9:07 AM EDT Patient called stating that her and her are going to [place] soon. She wondered if her and magda would be able to get a zpac sent in for them just in case they were to get sick while away for vacation. She said we've done this in the past for them. documented in this encounterSaint John's [facility] [id number] Telephone encounter Note* Telephone Encounter - Beena Khan - 10/26/2024 9:07 AM EDT Patient called stating that her and her are going to [place] soon. She wondered if her and magda would be able to get a zpac sent in for them just in case they were to get sick while away for vacation. She said we've done this in the past for them. [facility] [id number] History of Present illness Narrative* KATIE Parker - 10/06/2024 8:30 AM EDT Images from the original note were not included. Subjective Patient ID: Marla Figueredo is a 69 y.o. female who presents for fever. Marla is present today for evaluation of fever. Admits had a low grade fever for a 3 days (100.5), no fever yesterday but woke up sweaty. She did have a little diarrhea and it was green in color felt like she missed a step when I pooped out , took tylenol, low back pain on bilateral sides. She also gets urgency with her urine. Has not started the Ozempic yet due to recent diarrhea. Over the past 2 weeks, how often have you been bothered by any of the following problems? Little interest or pleasure in doing things: Not at all Feeling down, depressed, or hopeless: Not at all Patient Health Questionnaire-2 Score: 0 Current Outpatient Medications on File Prior to Visit Medication Sig Dispense Refill Estrace 0.1 MG/GM vaginal cream See Instructions, 42.5 gm, Refill(s) 6, Apply pea-sized amount around urethra and inside vagina 3 times per week at night for one month then 2 times per week after formaintenance., [facility]/pharmacy #2014 Ascorbic Acid (vitamin C) 1000 MG tablet aspirin 81 MG EC tablet Take 1 tablet by mouth Daily Azelastine HCl 137 MCG/SPRAY solution Administer 1 spray into affected nostril(s) in the morning and 1 spray before bedtime. Do all this for 14 days. 30 mL 0 calcium carbonate 1500 (600 Ca) MG tablet Take 600 mg by mouth in the morning. cholecalciferol (Vitamin D-3) 1.25 MG (34101 UT) capsule Take one capsule daily 100 [...] (25 mg) by mouth every 12 (twelve) [id number] tablet 3 [place]-3 Fatty Acids (Fish Oil) 1200 MG capsule delayed-release potassium chloride CR (Klor-Con M20) 20 MEQ ER tablet spironolactone (Aldactone) 25 MG tablet Take 25 mg by mouth in the morning and 25 mg before bedtime. torsemide (Demadex) 20 MG tablet TAKE 1 TABLET BY MOUTH EVERY DAY 100 tablet 3 Turmeric 500 MG tablet Take 1 tablet by mouth in the morning. Vonoprazan Fumarate (Voquezna) 20 MG tablet Take 20 mg by mouth Daily warfarin (Coumadin) 2.5 MG tablet warfarin (Coumadin) 5 MG tablet 1 (one) time each day at the same time zinc gluconate 50 MG tablet Take 50 mg by mouth in the morning. [DISCONTINUED] cephalexin (Keflex) 500 MG capsule Take 1 capsule (500 mg) by mouth in the morning and 1 capsule (500 mg) in the evening and 1 capsule (500 mg) before bedtime. Do all this for 10 days.30 capsule 0 [DISCONTINUED] tiZANidine (Zanaflex) 4 MG tablet Take 1 tablet (4 mg) by mouth every 12 (twelve) hours if needed for muscle spasms for up to 10 days 20 tablet 0 [DISCONTINUED] Vonoprazan Fumarate (Voquezna) 20 MG tablet Take 20 mg by mouth Daily 90 tablet 3 No current facility-administered medications on file prior [...] Hx Past Medical History: Diagnosis Date A-fib (HCC) Acute sinusitis Anemia DVT (deep venous thrombosis) (HCC) GERD (gastroesophageal reflux disease) History of medical problems mucoperiosteal thickening maxillary sinuses History of medical problems 12/23/2019 ECHO EF 55-60% Mitral valve prolapse Seasonal allergic rhinitis Thyroid disease Trigger finger, acquired Past Surgical History: Procedure Laterality Date * CT SCAN : SINUS 2011 mucoperiosteal thickeing maxillaty sinues CARDIOVERSION 11/2014 CARPAL TUNNEL RELEASE Bilateral right (2000), left (2002) COLONOSCOPY 2001, 2005, 2013 COLONOSCOPY W/ POLYPECTOMY 09/15/2024 CT SCAN : HEAD WITH AND WITHOUT CONTRANST 2012 DILATION AND CURETTAGE 2005 EGD 03/30/2020 EGD 09/15/2024 With Biopsy GASTRIC BYPASS 1997 HERNIA REPAIR 1999 LASIK 2000 eye OTHER SURGICAL HISTORY 1999 tummy tuck THYROIDECTOMY, PARTIAL TRIGGER FINGER RELEASE Bilateral VEIN LIGATION AND STRIPPING Right Visit Vitals BP 104/72 Pulse 68 Temp 98.1 F Resp 16 Ht 5' 4 Wt 232 lb 6.4 oz SpO2 99% BMI 39.89 kg/m Smoking Status Never BSA 2.18 m Review of Systems Constitutional: Positive for fever. Negative for chills and fatigue. Respiratory: Negative for cough, shortness of breath and wheezing. Cardiovascular: Negative for chest pain, palpitations and leg swelling. Gastrointestinal: Positive for diarrhea. Negative for abdominal pain, constipation, nausea and vomiting. Genitourinary: Positive for urgency. Musculoskeletal: Positive for back pain. Skin: Negative for rash. Objective Physical Exam Constitutional: General: She is not in acute distress. Appearance: She is well-developed. She is obese. HENT: Head: Normocephalic and atraumatic. Eyes: General: No scleral icterus. Conjunctiva/sclera: Conjunctivae normal. Neck: Thyroid: No thyromegaly. Cardiovascular: Rate and Rhythm: Normal rate and regular rhythm. Heart sounds: Normal heart sounds. No murmur heard. Pulmonary: Effort: Pulmonary effort is normal. No respiratory distress. Breath sounds: Normal breath sounds. No wheezing, rhonchi or rales. Abdominal: General: There is no distension. Palpations: Abdomen is soft. Tenderness: There is abdominal tenderness (Mild diffuse). There is no right CVA tenderness or left CVA tenderness. Skin: General: Skin is warm and dry. Neurological: General: No focal deficit present. Mental Status: She is alert and oriented to person, place, and time. Psychiatric: Mood and Affect: Mood normal. Behavior: Behavior normal. Office Visit on 10/06/2024 Component Date Value Ref Range Status Color, UA 10/06/2024 Kimberly In process Clarity, UA 10/06/2024 Cloudy In process Glucose, UA 10/06/2024 Negative Negative - 1999(110) ++++ mg/dL In process Bilirubin, UA 10/06/2024 Negative Negative - 4(70) +++ mg/dL In process Ketones, UA 10/06/2024 Negative Negative - 160(16) ++++ mg/dL In process Spec Grav, UA 10/06/2024 1.020 1 - 1.03 In process Blood, 10/06/2024 Positive Negative - 50 Binh/mcL In process hemo trace pH, UA 10/06/2024 5.0 5 - 9 In process Protein, UA 10/06/2024 3+ Negative - 2000(20) ++++ mg/dL In process Urobilinogen, UA 10/06/2024 1.0 0.2 - 12 mg/dL In process Leukocytes, UA 10/06/2024 Positive Negative - 500+++ Ashu/mcL In process moderate Nitrite, UA 10/06/2024 Negative Negative - Positive In process Assessment/Plan Diagnoses and all orders for this visit: Acute cystitis with hematuria - ciprofloxacin (Cipro) 250 MG tablet; Take 1 tablet (250 mg) by mouth in the morning and 1 tablet (250 mg) before bedtime. Do all this for 5 days. - phenazopyridine (Pyridium) 200 MG tablet; Take 1 tablet (200 mg) by mouth 3 (three) times a day as needed for bladder spasms for up to 2 days - URINARY TRACT INFECTION (HTRX); Future Start the above medications as directed. Advised pt to hold the iron, calcium, and magnesium while on the Cipro. Provided patient with prescription for Pyridium for symptomatic relief. Advised of potential side effects including discoloration of urine. Increase water intake, get plenty of rest. Advised patient that the urine will be sent out for culture. May need to change the antibiotic based onthe culture results. She has had some diarrhea recently, likely caused current UTI. Encouraged her to continue th probiotic daily. Discussed if patient develops any N/V, fever/chills, or symptoms dramatically increase, the patient is to go to the ER. Otherwise follow up at our office if no improvement in one week. Urinary urgency - POCT Urinalysis dipstick. UA abnormal today. Morbid obesity (CMS-HCC) Encouraged portion control, decrease simple sugars and carbohydrates, gradually increase activity level. Aim for gradual steady weight loss. Did provide pt with handout regarding low glycemic index diet at her request. Follow up for Appointment As Scheduled. documented in this encounterSaint [facility] [id number] History of Present illness Narrative* Noel Farnsworth MD - 09/28/2024 10:30 AM EDT Images from the original note were not included. Subjective Patient ID: Marla Figueredo is a 69 y.o. female who presents for No chief complaint on file.. Marla presents today for a follow for see GI and Urology. Over the past 2 weeks, how often have you been bothered by any of the following problems? Little interest or pleasure in doing things: Not at all Feeling down, depressed, or hopeless: Not at all Patient Health Questionnaire-2 Score: 0 Current Outpatient Medications on File Prior to Visit Medication Sig Dispense Refill Ascorbic Acid (vitamin C) 1000 MG tablet aspirin 81 MG EC tablet Take 1 tablet by mouth Daily Azelastine HCl 137 MCG/SPRAY solution Administer 1 spray into affected nostril(s) in the morning and 1 spray before bedtime. Do all this for 14 days. 30 mL 0 calcium carbonate 1500 (600 Ca) MG tablet Take 600 mg by mouth in the morning. cephalexin (Keflex) 500 MG capsule Take 1 capsule (500 mg) by mouth in the morning and 1 capsule (500 mg) in the evening and 1 capsule (500 mg) before bedtime. Do all this for 10 days. 30 capsule 0 cholecalciferol (Vitamin D-3) 1.25 MG (68313 UT) capsule Take one capsule daily 100 [...] (25 mg) by mouth every 12 (twelve) tablet 3 [place]-3 Fatty Acids (Fish Oil) 1200 MG capsule delayed-release potassium chloride CR (Klor-Con M20) 20 MEQ [...] 1 tablet by mouth in the morning. Vonoprazan Fumarate (Voquezna) 20 MG tablet Take 20 mg by mouth Daily 90 tablet 3 Vonoprazan Fumarate (Voquezna) 20 MG tablet Take 20 mg by mouth Daily warfarin (Coumadin) 2.5 MG tablet warfarin (Coumadin) 5 MG tablet 1 (one) time each day at the same time zinc gluconate 50 MG tablet Take 50 mg by mouth in the morning. [DISCONTINUED] pantoprazole (ProtoNix) 40 MG EC tablet TAKE 1 TABLET BY MOUTH DAILY 100 tablet 3 No current facility-administered medications on file prior [...] Hx Past Medical History: Diagnosis Date A-fib (HCC) Acute sinusitis Anemia DVT (deep venous thrombosis) (HCC) GERD (gastroesophageal reflux disease) History of medical problems mucoperiosteal thickening maxillary sinuses History of medical problems 12/23/2019 ECHO EF 55-60% Mitral valve prolapse Seasonal allergic rhinitis Thyroid disease Trigger finger, acquired Past Surgical History: Procedure Laterality Date * CT SCAN : SINUS 2011 mucoperiosteal thickeing maxillaty sinues CARDIOVERSION 11/2014 CARPAL TUNNEL RELEASE Bilateral right (2000), left (2002) COLONOSCOPY 2001, 2005, 2013 COLONOSCOPY W/ POLYPECTOMY 09/15/2024 CT SCAN : HEAD WITH AND WITHOUT CONTRANST 2011 DILATION AND CURETTAGE 2005 EGD 03/30/2020 EGD 09/15/2024 With Biopsy GASTRIC BYPASS 1998 HERNIA REPAIR 2000 LASIK 2000 eye OTHER SURGICAL HISTORY 2000 tummy tuck THYROIDECTOMY, PARTIAL TRIGGER FINGER RELEASE Bilateral VEIN LIGATION AND STRIPPING Right Visit Vitals BP 128/78 Pulse 51 Resp 16 Ht 5' 4 Wt 242 lb SpO2 97% BMI 41.54 kg/m Smoking Status Never BSA 2.23 m Review of Systems Objective Physical Exam Constitutional: General: She is not in acute distress. Appearance: She is well-developed. She is obese. HENT: Head: Normocephalic and atraumatic. Left Ear: Tympanic membrane and ear canal normal. Nose: Right Turbinates: Not swollen. Left Turbinates: Not swollen. Comments: Turbinates with mild erythema Mouth/Throat: Mouth: Mucous membranes are moist. Pharynx: No postnasal drip. Eyes: General: No scleral icterus. [...] Diagnoses and all orders for this visit: Gastroesophageal reflux disease with esophagitis without hemorrhage - awaiting Pathology Polyp of colon, unspecified part of colon, unspecified type - Awaiting Pathology Obesity, unspecified class, unspecified obesity type, unspecified whether serious comorbidity present - Trial (sample) of Ozempic. Other chronic pancreatitis (HCC) Longstanding persistent atrial fibrillation (HCC) - Seeing Cardiology, stable. Follow up in about 6 weeks (around 11/09/2024) for F/U med changes. documented in this encounterSaint John's [facility] [id number] History of Present illness Narrative* Denisha Gracia NP - 09/22/2024 8:30 AM EDT Images from the original note were not included. Subjective Patient ID: Marla Figueredo is a 69 y.o. female who presents for No chief complaint on file.. Maral presents today after smashing her left index finger in an RV door. The nail is damaged and itlooks like the nail may fall off. Since she is taking a blood thinner she didn't want to pull on anything. Over the past 2 weeks, how often have you been bothered by any of the following problems? Little interest or pleasure in doing things: Not at all Feeling down, depressed, or hopeless: Not at all Patient Health Questionnaire-2 Score: 0 Current Outpatient Medications on File Prior to Visit Medication Sig Dispense Refill Ascorbic Acid (vitamin C) 1000 MG tablet aspirin 81 MG EC tablet Take 1 tablet by mouth Daily Azelastine HCl 137 MCG/SPRAY solution Administer 1 spray into affected nostril(s) in the morning and 1 spray before bedtime. Do all this for 14 days. 30 mL 0 calcium carbonate 1500 (600 Ca) MG tablet Take 600 mg by mouth in the morning. cholecalciferol (Vitamin D-3) 1.25 MG (79447 UT) capsule Take one capsule daily 100 [...] (25 mg) by mouth every 12 (twelve) [id number] tablet 3 [place]-3 Fatty Acids (Fish Oil) 1200 MG capsule [...] 1 tablet by mouth in the morning. Vonoprazan Fumarate (Voquezna) 20 MG tablet Take 20 mg by mouth Daily 90 tablet 3 warfarin (Coumadin) 2.5 MG tablet warfarin (Coumadin) [...] Hx Past Medical History: Diagnosis Date A-fib (HCC) Acute sinusitis Anemia DVT (deep venous thrombosis) (HCC) GERD (gastroesophageal reflux disease) History of medical problems mucoperiosteal thickening maxillary sinuses History of medical problems 12/23/2019 ECHO EF 55-60% Mitral valve prolapse Seasonal allergic rhinitis Thyroid disease Trigger finger, acquired Past Surgical History: Procedure Laterality Date * CT SCAN : SINUS 2011 mucoperiosteal thickeing maxillaty sinues CARDIOVERSION 11/2014 CARPAL TUNNEL RELEASE Bilateral right (2000), left (2002) COLONOSCOPY 2001, 2005, 2013 COLONOSCOPY W/ POLYPECTOMY 09/15/2024 CT SCAN : HEAD WITH AND WITHOUT CONTRANST 2011 DILATION AND CURETTAGE 2005 EGD 03/30/2020 EGD 09/15/2024 With Biopsy GASTRIC BYPASS 1997 HERNIA REPAIR 1999 LASIK 1999 eye OTHER SURGICAL HISTORY 1999 tummy tuck THYROIDECTOMY, PARTIAL TRIGGER FINGER RELEASE Bilateral VEIN LIGATION AND STRIPPING Right Visit Vitals Smoking Status Never Review of Systems Constitutional: Negative. HENT: Negative. Eyes: Negative. Respiratory: Negative. Cardiovascular: Negative. Gastrointestinal: Negative. Genitourinary: Negative. Musculoskeletal: Negative. Skin: Index finger wound Neurological: Negative. Psychiatric/Behavioral: Negative. Objective Physical Exam Vitals reviewed. Constitutional: Appearance: Normal appearance. HENT: Head: Normocephalic. Right Ear: Tympanic membrane normal. Left Ear: Tympanic membrane normal. Nose: Nose normal. Mouth/Throat: Mouth: Mucous membranes are moist. Pharynx: Oropharynx is clear. Eyes: Conjunctiva/sclera: Conjunctivae normal. Cardiovascular: Rate and Rhythm: Normal rate. Pulmonary: Effort: Pulmonary effort is normal. Abdominal: General: Bowel sounds are normal. Palpations: Abdomen is soft. Musculoskeletal: General: Normal range of motion. Skin: General: Skin is warm and dry. Comments: Left index finger-nail is loose, dried red drainage, 2mm skin gone inner aspect of nail bed with mild edema. Neurological: General: No focal deficit present. Mental Status: She is alert and oriented to person, place, and time. Psychiatric: Mood and Affect: Mood normal. Behavior: Behavior normal. Assessment/Plan Diagnoses and all orders for this visit: Wound infection - cephalexin (Keflex) 500 MG capsule; Take 1 capsule (500 mg) by mouth in the morning and 1 capsule(500 mg) in the evening and 1 capsule (500 mg) before bedtime. Do all this for 10 days. Take all of ATB until gone. If there is a change in the wound, come back to the office for evaluation. Eat yogurt or take a probiotic while on ATB to help prevent diarrhea from ATB. Follow up as needed. No follow-ups on file. documented in this encounterSaint [facility] [id number] History of Present illness Narrative* Mily Hackett MD - 08/27/2024 9:00 AM EDT HPI Patient is in the office for annual follow-up for permanent atrial fibrillation which has been treated with metoprolol and long-term anticoagulation with Coumadin. She does have obstructive sleep apnea but unfortunately did not tolerate CPAP machine. She reports no palpitations or dyspnea. She has chronic lower extremity edema with intermittent cellulitis. She has lymphedema as well and has been through treatment with the lymphedema clinic at [facility] for 16 sessions with improvement. I reviewed with her her lab data that were done this past June through her PCP which included lipid profile, CBC, comprehensive metabolic profile along with vitamin D level. All the lab data fell into the nor mal range and this was shared with her. We discussed the options available for her weight which shehas not been able to change lately. Her weight is down only 2 pounds in 1 year. She has had no complications related to Coumadin therapy. Her heart rate is completely under control and her blood pressure is completely normal. Assessment/recommendations: 1-permanent atrial fibrillation that is asymptomatic. Heart rate is controlled on metoprolol 25 mg twice daily and on chronic anticoagulation with Coumadin managed by the Coumadin clinic at [facility]. There has been no complications related to atrial fibrillation. Long-term outcome was discussed with the patient. Rate control and anticoagulation her setting is as good as rhythm control. Potential complications such as heart failure and thromboembolic events have been mitigated by the treatment provided 2-essential hypertension under control on metoprolol. Emphasized the value of maintaining ideal body weight and low-salt diet. 3- history of severe lower extremity edema and cellulitis, completed a course of treatment at the wound clinic for lymphedema at [facility]. Reiterated the value of weight control, compression stockings and continuous use of diuretic therapy. 4-morbid obesity status post bariatric surgery but remains morbidly obese, I advised patient to discuss with her PCP the options of other therapy such as Ozempic 5-high risk medication with anticoagulation with no bleeding problems. 6-nuclear stress test in [place] several years ago was normal, no need to repeat. 7-obstructive sleep apnea intolerant to CPAP machine. More weight loss was recommended Review of Systems All other systems reviewed and are negative. Vitals: 08/27/24 0906 BP: 100/68 BP Location: Left arm Patient Position: Sitting Pulse: 60 Weight: 110 kg (242 lb) Height: 1.651 m (5' 5 ) Objective Physical Exam Constitutional: Appearance: Normal appearance. HENT: Nose: Nose normal. Neck: Vascular: No carotid bruit. Cardiovascular: Rate and Rhythm: Normal rate. Rhythm irregularly irregular. Pulses: Normal pulses. Heart sounds: Normal heart sounds. Pulmonary: Effort: Pulmonary effort is normal. Abdominal: General: Bowel sounds are normal. Palpations: Abdomen is soft. Musculoskeletal: General: Normal range of motion. Cervical back: Normal range of motion. Right lower le+ Pitting Edema present. Left lower le+ Pitting Edema present. Skin: General: Skin is warm and dry. Neurological: General: No focal deficit present. Mental Status: She is alert. Psychiatric: Mood and Affect: Mood normal. Behavior: Behavior normal. Thought Content: Thought content normal. Judgment: Judgment normal. Allergies Chlorzoxazone Current Medications Current Outpatient Medications Medication Instructions ascorbic acid (Vitamin C) 1,000 mg tablet 2 tablets, Daily BACILLUS COAGULANS-INULIN ORAL 1 tablet, Daily calcium carbonate 600 mg calcium (1,500 mg) tablet 1 tablet, Daily cholecalciferol (VITAMIN D-3) 80,000 Units, Daily copper gluconate 2 mg tablet 1 tablet, Daily cyanocobalamin, vitamin B-12, (VITAMIN B-12 ORAL) 1 tablet, Daily docosahexaenoic acid/epa (FISH OIL ORAL) 1,400 mg, Daily famotidine (Pepcid) 20 mg tablet 1 tablet, Nightly PRN ferrous sulfate 325 (65 Fe) MG tablet 1 tablet, 2 times daily MAGNESIUM ORAL 400 mg, Daily metoprolol tartrate (LOPRESSOR) 25 mg, oral, 2 times daily multivitamin capsule 1 tablet, Daily potassium chloride CR 20 mEq ER tablet 20 mEq, oral, 4 times daily spironolactone (ALDACTONE) 25 mg, oral, Daily torsemide (DEMADEX) 20 mg, oral, Daily turmeric root extract 500 mg tablet 1 tablet, Daily vonoprazan (Voquezna) 20 mg tablet Take by mouth. warfarin (Coumadin) 2.5 mg tablet Take by mouth. As directed by [place] [facility] zinc gluconate 50 mg tablet 1 tablet, Daily Assessment/Plan 1. Permanent atrial fibrillation with RVR (Multi) Follow Up In Cardiology 2. Essential hypertension Follow Up In Cardiology metoprolol tartrate (Lopressor) 25 mg tablet torsemide (Demadex) 20 mg tablet 3. Anticoagulated 4. Obstructive sleep apnea syndrome 5. Edema of both legs 6. BMI 40.0-44.9, adult (Multi) 7. Former smoker 8. Morbid obesity (Multi) Scribe Attestation By signing my name below, I, Urszula Snow LPN, Scribe attest that this documentation has been prepared under the direction and in the presence of Mily Hackett MD. Provider Attestation - Scribe documentation All medical record entries made by the Scribe were at my direction and personally dictated by me. Ihave reviewed the chart and agree that the record accurately reflects my personal performance of the history, physical exam, discussion and plan. documented in this [facility] Work Phone: [phone] Instructions* Patient Instructions* Urszula Starks LPN - 08/27/2024 9:00 AM EDT Please bring all medicines, vitamins, and herbal supplements with you when you come to the office. Prescriptions will not be filled unless you are compliant with your follow up appointments or have a follow up appointment scheduled as per instruction of your physician. Refills should be requested at the time of your visit. BMI was above normal measurement. Current weight: 110 kg (242 lb) Weight change since last visit (-) denotes wt loss -2 lbs Weight loss needed to achieve BMI 25: 92.1 Lbs Weight loss needed to achieve BMI 30: 62.1 Lbs Provided instructions on dietary changes Provided instructions on exercise. * Attachments The following attachments cannot be sent through Care Everywhere. * Diet and health ([place]) documented in this [facility] Work Phone: [phone] Hospital Discharge instructions Patient Education 08/26/2024 11:01:24 Atrophic Vaginitis Atrophic Vaginitis Atrophic vaginitis is a condition in which the tissues that line the vagina become dry and thin. This condition is most common in women who have stopped having regular menstrual periods (are in menopause). This usually starts when a woman is 45 to 55 years old. That is the time when a woman's estrogen levels begin to decrease. Estrogen is a female hormone. It helps to keep the tissues of the vagina moist. It stimulates the vagina to produce a clear fluid that lubricates the vagina for sex. This fluid also protects the vagina from infection. Lack of estrogen can cause the lining of the vagina to get thinner and dryer. Thevagina may also shrink in size. It may become less elastic. Atrophic vaginitis tends to get worse over time as a woman's estrogen level drops. What are the causes? This condition is caused by the normal drop in estrogen that happens around the time of menopause. What increases the risk? Certain conditions or situations may lower a woman's estrogen level, leading to a higher risk for atrophic vaginitis. You are more likely to develop this condition if: You are taking medicines that block estrogen. You have had your ovaries removed. You are being treated for cancer with radiation or medicines (chemotherapy). You have given or are . You are older than age 50. You smoke. What are the signs or symptoms? Symptoms of this condition include: Pain, soreness, a feeling of pressure, or bleeding during sex (dyspareunia). Vaginal burning, irritation, or itching. Pain or bleeding when a speculum is used in a vaginal exam. Having burning pain while urinating. Vaginal discharge. In some cases, there are no symptoms. How is this diagnosed? This condition is diagnosed based on your medical history and a physical exam. This will include a pelvic exam that checks the vaginal tissues. Though rare, you may also have other tests, including: A urine test. A test that checks the acid balance in your vagina (acid balance test). How is this treated? Treatment for this condition depends on how severe your symptoms are. Treatment may include: Using an xbjp-yuk-vwzukyg vaginal lubricant before sex. Using a long-acting vaginal moisturizer. Using low-dose estrogen for moderate to severe symptoms that do not respond to other treatments. Options include creams, tablets, and inserts (vaginal rings). Before you use a vaginal estrogen, tell your health care provider if you have a history of: ?Breast cancer. ?Endometrial cancer. ?Blood clots. If you are not sexually active and your symptoms are very mild, you may not need treatment. Follow these instructions at home: Medicines Take nbkk-jqp-opgtgnc and prescription medicines only as told by your health care provider. Do not use herbal or alternative medicines unless your health care provider says that you can. Use sjfs-gly-heitldg creams, lubricants, or moisturizers for dryness only as told by your health care provider. General instructions If your atrophic vaginitis is caused by menopause, discuss all of your menopause symptoms and treatment options with your health care provider. Do not douche. Do not use products that can make your vagina dry. These include: ?Scented feminine sprays. ?Scented tampons. ?Scented soaps. Vaginal sex can help to improve blood flow and elasticity of vaginal tissue. If you choose to have sex and it hurts, try using a water-soluble lubricant or moisturizer right before having sex. Contact a health care provider if: Your discharge looks different than normal. Your vagina has an unusual smell. You have new symptoms. Your symptoms do not improve with treatment. Your symptoms get worse. Summary Atrophic vaginitis is a condition in which the tissues that line the vagina become dry and thin. Itis most common in women who have stopped having regular menstrual periods (are in menopause). Treatment options include using vaginal lubricants and low-dose vaginal estrogen. Contact a health care provider if your vagina has an unusual smell, or if your symptoms get worse or do not improve after treatment. This information is not intended to replace advice given to you by your health care provider. Make sure you discuss any questions you have with your health care provider. Document Revised: 08/25/2020 Document Reviewed: 08/25/2020 [employer] Patient Education 2023 [employer]. Follow Up Care 08/19/2024 08:23:35 With:Jayce TIJERINA, Aditi Lorenzo URL, URO Address: When: Unknown [facility] 06-18-2025 NoteUrology Office/Clinic Note HPI Staff Referral for dysuria from Dr. Farnsworth. Had pressure, pain, and burning/prickling sensation 3 wks ago. Was given empiric bactrim. Ucx came back neg. She completed the bactrim course anyway. Takes water pill around 7:30-9:00 am. Urinary sx worse in the evening. History of Present Illness Tests reviewed: UA, external referral records: UAs, UCX/PCRs, notes I have reviewed the previous health record information and history for this patient from Dr Farnsworth. I have reviewed and verified the staff HPI to be accurate for this encounter. Review of Systems ROS - Provider Constitutional: denies weight loss, denies hot flashes. Eyes: denies eye problems. Gastrointestinal: denies nausea, denies vomiting. Cardiovascular: denies chest pain or angina. Integumentary: no dryness Musculoskeletal: denies musculoskeletal symptoms. ENMT: denies otolaryngeal symptoms. Respiratory: no shortness of breath. Heme/Lymph: denies easy bleeding tendency, denies easy bruising tendency. Psychiatric: no confusion, no anxiety. Genitourinary: See HPI. Physical Exam General Appearance: alert, no distress, well nourished, well developed adult. Assessment/Plan Marla is a 68 yo F new pt referred by Dr Noel Farnsworth d/ dysuria. 1. UTI symptoms (R39.9: Unspecified symptoms and signs involving the genitourinary system) Recently had UTI sx, was treated with Bactrim empirically however ucx was neg, sx did not significantly improve. Sx include pressure, burning at the end of stream in the evening. Concentrated urine can cause bladder irritation. Denies constipation. UCx/PCR neg Discussed how vaginal atrophy can mimic UTIs. -Timed voids q2hr -Increase fluid intake -Avoid bladder irritants -See #2 Ordered: 71491 Measure Post Void residual urine and/or bladder capacity by US- non-imaging 2. 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 Denies feeling of prolapse. We discussed vaginal atrophy. I explained the lack of estrogen secondary to menopause causes changes in the vaginal epithelium that can predispose to lower urinary tract symptoms, vaginal discomfort,urge urinary incontinence, urgency, frequency, nocturia, dyspareunia, and recurrent urinary tract infections. This can be treated with topical application of estrogen to the vagina, which has been shown to reduce frequency of UTIs by up to 70%. She was reassured that there is minimal systemic absorption with application of vaginal estrogen cream and most of the benefits will be to the local tissues. -Start estrace cream. Patient was told to apply a pea-sized amount 3 times weekly at night for 4 weeks and then 2 times per week thereafter, may take up to 3 months for full effect. She should stop medication and notify us if she feels breast tenderness or has vaginal spotting. Follow up 3 mos (new med) or sooner if needed. Pt understands and agrees with plan. 3. Abnormal urinalysis (R82.90: Unspecified abnormal findings in urine) UA from [facility]: 08/07/24 - + blood (trace) and moderate leuks 08/17/24 - neg for blood and leuks UA shows small blood and small leuks. Asx today. Not a clean catch - Did not use wipe prior, likelycontamination since she has WBCs too. Denies gross hematuria. When she was having UTI sx, was told she had a tinge of blood in her urine (trace above). Explained true microhematuria warrants cysto, could proceed if she is concerned or have pt do clean catch next time. -Clean catch UA at next OV -Cysto, CTU in future if urinary sx persistent or true microhematuria on clean catch 4. Urge incontinence (N39.41: Urge incontinence) BBS 16. Sx include pressure, burning at the end of stream in the evening. Pt is also on a water pill which can exacerbate frequency. Voids ~q2hr on water pill. Dribbling in-between urination every once in a while d/t UUI not KORTNEY. This occurs if she has held her bladder too long. Concentrated urine can cause bladder irritation. Denies constipation. PVR 198 cc Risk of retention with OAB meds, especially while on diuretics. - Start estrace as above - Timed voids - Bladder emptying maneuvers -Cysto in future if no improvement Orders: estradiol topical, See Instructions, 42.5 gm, Refill(s) 6, Apply pea-sized amount around urethra and inside vagina 3 times per week at night for one month then 2 times per week after for maintenance., [id number] Urnls Dip Stick Auto w/o Microscopy POC 03999 Follow-up With When Contact Information Jayce TIJERINA, Aditi Lorenzo, URL, URO Additional Instructions: 3 mos (new med) Patient Education Atrophic Vaginitis I, Tiera Glass, personally scribed for Dr. Eduardo on 08/26/2024 11:15:49. . Documentation recorded by the scribe, Tiera Glass, accurately reflects the services(s) I performed and decisions made by me. Authenticated by Dr. Eduardo on 08/26/2024 11:49 (more content not included)...[facility] CenterComment on above:Result Comment: Electronically Signed By: Aditi Eduardo MD\.br\Date and Time Signed: 08/26/24 11:[id number] NotePatient Education Obstetrics and Gynecology Atrophic Vaginitis Atrophic vaginitis is a condition in which the tissues that line the vagina become dry and thin. This condition is most common in women who have stopped having regular menstrual periods (are in menopause). This usually starts when a woman is 45 to 55 years old. That is the time when a woman's estrogen levels begin to decrease. Estrogen is a female hormone. It helps to keep the tissues of the vagina moist. It stimulates the vagina to produce a clear fluid that lubricates the vagina for sex. This fluid also protects the vagina from infection. Lack of estrogen can cause the lining of the vagina to get thinner and dryer. Thevagina may also shrink in size. It may become less elastic. Atrophic vaginitis tends to get worse over time as a woman's estrogen level drops. What are the causes? This condition is caused by the normal drop in estrogen that happens around the time of menopause. What increases the risk? Certain conditions or situations may lower a woman's estrogen level, leading to a higher risk for atrophic vaginitis. You are more likely to develop this condition if: ??? You are taking medicines that block estrogen. ??? You have had your ovaries removed. ??? You are being treated for cancer with radiation or medicines (chemotherapy). ??? You have given or are . ??? You are older than age 50. ??? You smoke. What are the signs or symptoms? Symptoms of this condition include: ??? Pain, soreness, a feeling of pressure, or bleeding during sex (dyspareunia). ??? Vaginal burning, irritation, or itching. ??? Pain or bleeding when a speculum is used in a vaginal exam. ??? Having burning pain while urinating. ??? Vaginal discharge. In some cases, there are no symptoms. How is this diagnosed? This condition is diagnosed based on your medical history and a physical exam. This will include a pelvic exam that checks the vaginal tissues. Though rare, you may also have other tests, including: ??? A urine test. ??? A test that checks the acid balance in your vagina (acid balance test). How is this treated? Treatment for this condition depends on how severe your symptoms are. Treatment may include: ??? Using an tmfp-qpt-nsuzhgv vaginal lubricant before sex. ??? Using a long-acting vaginal moisturizer. ??? Using low-dose estrogen for moderate to severe symptoms that do not respond to other treatments. Options include creams, tablets, and inserts (vaginal rings). Before you use a vaginal estrogen, tell your health care provider if you have a history of: ? Breast cancer. ? Endometrial cancer. ? Blood clots. If you are not sexually active and your symptoms are very mild, you may not need treatment. Follow these instructions at home: Medicines ??? Take viec-ibb-muycivh and prescription medicines only as told by your health care provider. ??? Do not use herbal or alternative medicines unless your health care provider says that you can. ??? Use murr-cqb-flssuak creams, lubricants, or moisturizers for dryness only as told by your health care provider. General instructions ??? If your atrophic vaginitis is caused by menopause, discuss all of your menopause symptoms and treatment options with your health care provider. ??? Do not douche. ??? Do not use products that can make your vagina dry. These include: ? Scented feminine sprays. ? Scented tampons. ? Scented soaps. ??? Vaginal sex can help to improve blood flow and elasticity of vaginal tissue. If you choose to have sex and it hurts, try using a water-soluble lubricant or moisturizer right before having sex. Contact a health care provider if: ??? Your discharge looks different than normal. ??? Your vagina has an unusual smell. ??? You have new symptoms. ??? Your symptoms do not improve with treatment. ??? Your symptoms get worse. Summary ??? Atrophic vaginitis is a condition in which the tissues that line the vagina become dry and thin. It is most common in women who have stopped having regular menstrual periods (are in menopause). ??? Treatment options include using vaginal lubricants and low-dose vaginal estrogen. ??? Contact a health care provider if your vagina has an unusual smell, or if your symptoms get worse or do not improve after treatment. This information is not intended to replace advice given to you by your health care provider. Make sure you discuss any questions you have with your health care provider. Document Revised: 08/25/2020 Document Reviewed: 08/25/2020 [employer] Patient Education ? 2023 [employer] 08-24-2024 History of Present illness Narrative* Noel Farnsworth MD - 08/24/2024 4:45 PM EDT Images from the original note were not included. Subjective Patient ID: Marla Figueredo is a 68 y.o. female who presents for GERD. Pt has been taking clotrimazole as directed she has 1 day left and then will switch to the samples of Voquenzna she was given her symptoms are still present but have improved in severity and frequency overall She is sched to see GI 09/15/24 for endoscopy GERD Over the past 2 weeks, how often have you been bothered by any of the following problems? Little interest or pleasure in doing things: Not at all Feeling down, depressed, or hopeless: Not at all Patient Health Questionnaire-2 Score: 0 Current Outpatient Medications on File Prior to Visit Medication Sig Dispense Refill Ascorbic Acid (vitamin C) 1000 MG tablet aspirin 81 MG EC tablet Take 1 tablet by mouth Daily Azelastine HCl 137 MCG/SPRAY solution Administer 1 spray into affected nostril(s) in the morning and 1 spray before bedtime. Do all this for 14 days. 30 mL 0 calcium carbonate 1500 (600 Ca) MG tablet Take 600 mg by mouth in the morning. cholecalciferol (Vitamin D-3) 1.25 MG (45903 UT) capsule Take one capsule daily 100 capsule 3 clotrimazole (Mycelex) 10 MG yelena Take 1 tablet (10 mg) by mouth 5 (five) times a day for 7 days 35 tablet 0 Copper Gluconate 2 MG tablet Take 1 [...] (25 mg) by mouth every 12 (twelve) [id number] tablet 3 [place]-3 Fatty Acids (Fish Oil) 1200 MG capsule [...] mg by mouth in the morning. [DISCONTINUED] sulfamethoxazole-trimethoprim (Bactrim DS) 800-160 MG per tablet Take 1 tablet by mouth in the morning and 1 tablet before bedtime. Do all this for 7 days. 14 tablet 0 No current facility-administered medications on [...] Hx Past Medical History: Diagnosis Date A-fib (HCC) Acute sinusitis Anemia DVT (deep venous thrombosis) (HCC) GERD (gastroesophageal reflux disease) History of medical problems mucoperiosteal thickening maxillary sinuses History of medical problems 12/23/2019 ECHO EF 55-60% Mitral valve prolapse Seasonal allergic rhinitis Thyroid disease Trigger finger, acquired Past Surgical History: Procedure [...] STRIPPING Right Visit Vitals BP 122/70 Pulse 75 Ht 5' 4 Wt 241 lb SpO2 97% BMI 41.37 kg/m Smoking Status Never BSA 2.22 m Review of Systems Objective Physical Exam Constitutional: General: She is not in acute distress. Appearance: She is well-developed. She is obese. HENT: Head: Normocephalic and atraumatic. Left Ear: Tympanic membrane and ear canal normal. Nose: Right Turbinates: Not swollen. Left Turbinates: Not swollen. Comments: Turbinates with mild erythema Mouth/Throat: Mouth: Mucous membranes are moist. Pharynx: No postnasal drip. Eyes: General: No scleral icterus. [...] Diagnoses and all orders for this visit: Gastroesophageal reflux disease with esophagitis without hemorrhage - Start Voquezna 20mg daily. Hold AM PPI. Alcides esophagitis (HCC) - Better with clotrimazole. Dysuria - Has appt with Urology. Follow up in about 4 weeks (around 2024) for Recheck. documented in this encounterSaint John's [facility]ree[facility] Medical [id number] History of Present illness Narrative* Noel Farnsworth MD - 08/17/2024 3:15 PM EDT Images from the original note were not included. Subjective Patient ID: Marla Figueredo is a 68 y.o. female who presents for ER F/U. Marla presents today for an ER Follow up for GERD. She is currently taking pantoprazole daily. She Is also taking an OTC Acid -Pep, (famotidine) daily. She is also still have urinary burning and bad smell. Current Outpatient Medications on File Prior to Visit Medication Sig Dispense Refill Ascorbic Acid (vitamin C) 1000 MG tablet aspirin 81 MG EC tablet Take 1 tablet by mouth Daily Azelastine HCl 137 MCG/SPRAY solution Administer 1 spray into affected nostril(s) in the morning and 1 spray before bedtime. Do all this for 14 days. 30 mL 0 calcium carbonate 1500 (600 Ca) MG tablet Take 600 mg by mouth in the morning. cholecalciferol (Vitamin D-3) 1.25 MG (44034 UT) capsule Take one capsule daily 100 [...] (25 mg) by mouth every 12 (twelve) [id number] tablet 3 [place]-3 Fatty Acids (Fish Oil) 1200 MG capsule delayed-release pantoprazole (ProtoNix) 40 MG EC tablet TAKE 1 TABLET BY MOUTH DAILY 100 tablet 3 potassium chloride CR (Klor-Con M20) 20 MEQ ER tablet spironolactone (Aldactone) 25 MG tablet Take 25 mg by mouth in the morning and 25 mg before bedtime. [] sulfamethoxazole-trimethoprim (Bactrim DS) 800-160 MG per tablet Take 1 tablet by mouth in the morning and 1 tablet before bedtime. Do all this for 7 days. 14 tablet 0 tiZANidine (Zanaflex) 4 MG tablet Take 1 [...] Hx Past Medical History: Diagnosis Date A-fib ([facility]) Acute sinusitis Anemia DVT (deep venous thrombosis) ([facility]) GERD (gastroesophageal reflux disease) History of medical problems mucoperiosteal thickening maxillary sinuses History of medical problems 12/23/2019 ECHO EF 55-60% Mitral valve prolapse Seasonal allergic rhinitis Thyroid disease ([facility]) Trigger finger, acquired Past Surgical History: Procedure [...] LIGATION AND STRIPPING Right Visit Vitals BP 128/78 Pulse 67 Resp 17 Ht 5' 4 Wt 237 lb SpO2 97% BMI 40.68 kg/m Smoking Status Never BSA 2.21 m Review of Systems Objective Physical Exam Constitutional: General: She is not in acute distress. Appearance: She is well-developed. She is obese. HENT: Head: Normocephalic and atraumatic. Left Ear: Tympanic membrane and ear canal normal. Nose: Right Turbinates: Not swollen. Left Turbinates: Not swollen. Comments: Turbinates with mild erythema Mouth/Throat: Mouth: Mucous membranes are moist. Oral lesions present. Pharynx: Oropharyngeal exudate and posterior oropharyngeal erythema present. No postnasal drip. Eyes: General: No scleral icterus. [...] Diagnoses and all orders for this visit: Alcides esophagitis ([facility]) - clotrimazole (Mycelex) 10 MG yelena; Take 1 tablet (10 mg) by mouth 5 (five) times a day for 7 days Dysuria - POCT Urinalysis dipstick - Ambulatory referral to Urology; Future Gastroesophageal reflux disease with esophagitis without hemorrhage - Ambulatory referral to Gastroenterology; Future - Trial of Voquezna 20mg daily, hold Pantoprazole History of gastric bypass - Ambulatory referral to Gastroenterology; Future Follow up in about 1 week (around 08/24/2024) for Recheck. documented in this encounterSaint John's [facility]ree[facility] Medical [id number] History of Present illness Narrative* KATIE Parker - 08/07/2024 12:30 PM EDT Images from [...] the morning. cholecalciferol (Vitamin D-3) 1.25 MG (76840 UT) capsule Take one capsule daily 100 [...] (25 mg) by mouth every 12 (twelve) [id number] tablet 3 [place]-3 Fatty Acids (Fish Oil) 1200 MG capsule [...] Hx Past Medical History: Diagnosis Date A-fib ([facility]) Acute sinusitis Anemia DVT (deep venous thrombosis) ([facility]) GERD (gastroesophageal reflux disease) History of medical problems mucoperiosteal thickening maxillary sinuses History of medical problems 12/23/2019 ECHO EF 55-60% Mitral valve prolapse Seasonal allergic rhinitis Thyroid disease ([facility]) Trigger finger, acquired Past Surgical History: Procedure [...] process Protein, UA 08/07/2024 Negative Negative - 1999(20) ++++ mg/dL In process Urobilinogen, UA 08/07/2024 [...] exists to indicate HCV infection. Performed at: [address] [id number] [place] [employer] Br[employer]her: Bharat Cain PhD, Phone: [phone] Assessment/Plan Diagnoses and all orders for this [...] or fail to improve. documented in this encounterSaint John's Breech [facility] Medical [id number] History of Present illness Narrative* KATIE Parker - 07/07/2024 9:30 AM EDT Images from the original note were not included. HPI Back Pain Additional comments: Cervical pain, she was making easter bread so was not sure if her rolling the bread caused the pain, The pain has improved but still is having pain in bilateral sides of neck anddoes cause her to have some headaches. She [...] pain and sinus pressure. Pertinent negatives include nochills, congestion, coughing, ear pain, shortness of breath [...] Do you have a medical power of estate attorney?: No Current Outpatient Medications on File [...] the morning. cholecalciferol (Vitamin D-3) 1.25 MG (32239 UT) capsule Take one capsule daily 100 [...] (25 mg) by mouth every 12 (twelve) [id number] tablet 3 [place]-3 Fatty Acids (Fish Oil) 1200 MG capsule [...] All needed testing was ordered. Will continue withyearly Medicare Wellness exams. - HEPATITIS C AB [...] a living will and durable power of estate attorney for healthcare. We discussed telling mcgill [...] controlled. Continue with current medications and I willcontinue to monitor. Goal BP remains less than [...] (CMS/HCC) The patient is seeing a medical technologist chief for this condition, treatment is deferred to that specialist. Correspondence from that specialist and any available testing were reviewed during today's visit. 13. Chronic venous insufficiency The patient is seeing a medical technologist chief for this condition, treatment is deferred to that specialist. Correspondence from that specialist and any available testing were reviewed during today's visit. 14. Mitral valve prolapse The patient is seeing a medical technologist chief for this condition, treatment is deferred to [...] vagina The patient is seeing a medical technologist chief for this condition, treatment is deferred to that specialist. Correspondence from that specialist and any available testing were reviewed during today's visit. 19. Urge incontinence of urine This is a chronic medical condition that is stable since last assessment. No treatment indicated atthis time. 20. Acquired pes planus of left foot This is a chronic medical condition that is stable since last assessment. No treatment indicated atthis time. 21. Acquired trigger finger This is a chronic medical condition that is stable since last assessment. No treatment indicated atthis time. 22. Cervical paraspinal muscle spasm Can [...] last assessment. Can be referred to ENT ifneeded. 24. Cramp of limb This is a chronic medical condition that is stable since last assessment. No treatment indicated atthis time. 25. Disorder of bone and cartilage The patient is seeing a medical technologist chief for this condition, treatment is deferred to that specialist. Correspondence from that specialist and any available testing were reviewed during today's visit. 26. Edema of both legs Following with [facility]ema [facility]. Continue current treatment plan as per their recommendations. 27. Internal derangement of left shoulder The patient is seeing a medical technologist chief for this condition, treatment is deferred to that specialist. Correspondence from that specialist and any available testing were reviewed during today's visit. 28. Left Achilles tendinitis This is a chronic medical condition that is stable since last assessment. No treatment indicated atthis time. 29. Monoarticular arthritis This is a chronic medical condition that is stable since last assessment. No treatment indicated atthis time. 30. Pes planus of both feet This is a chronic medical condition that is stable since last assessment. No treatment indicated atthis time. 31. Plantar fasciitis, bilateral This is a chronic medical condition that is stable since last assessment. No treatment indicated atthis time. 32. Primary osteoarthritis of right knee The patient is seeing a medical technologist chief for this condition, treatment is deferred to that specialist. Correspondence from that specialist and any available testing were reviewed during today's visit. 33. Right anterior shoulder pain The patient is seeing a medical technologist chief for this condition, treatment is deferred to that specialist. Correspondence from that specialist and any available testing were reviewed during today's visit. 34. Senile osteoporosis ([facility]) The patient is seeing a medical technologist chief for this condition, treatment is deferred to that specialist. Correspondence from that specialist and any available testing were reviewed during today's visit. 35. Hyperparathyroidism ([facility]) The patient is seeing a medical technologist chief for this condition, treatment is deferred to that specialist. Correspondence from that specialist and any available testing were reviewed during today's visit. 36. Morbid obesity ([facility]) Encouraged portion control, decrease simple sugars and carbohydrates, gradually increase activity level. Aim for gradual steady weight loss. 37. Non-toxic multinodular goiter ([facility]) The patient is seeing a medical technologist chief for this condition, treatment is deferred to that specialist. Correspondence from that specialist and any available testing were reviewed during today's visit. 38. BMI 40.0-44.9, adult ([facility]) Encouraged portion control, decrease simple sugars and carbohydrates, gradually increase activity level. Aim for gradual steady weight loss. 39. Subclinical hypothyroidism (CMS/HCC) The patient is seeing a medical technologist chief for this condition, treatment is deferred to that specialist. Correspondence from that specialist and any available testing were reviewed during today's visit. 40. Vitamin B-complex deficiency The patient is seeing a medical technologist chief for this condition, treatment is deferred to that specialist. Correspondence from that specialist and any available testing were reviewed during today's visit. 41. Vitamin D deficiency The patient is seeing a medical technologist chief for this condition, treatment is deferred to that specialist. Correspondence from that specialist and any available testing were reviewed during today's visit. 42. Other iron deficiency anemia This is a chronic medical condition that is stable since last assessment. Will continue to monitor with routine labs. 43. Thrombocytopenia ([facility]) This is a chronic medical condition that is stable since last assessment. Will continue to monitor with routine labs. 44. Other chronic sinusitis This is a chronic medical condition that is stable since last assessment. No changes in treatment are suggested at this time. Continue Flonase. 45. Anticoagulated The patient is seeing a medical technologist chief for this condition, treatment is deferred to [...] laterality The patient is seeing a medical technologist chief for this condition, treatment is deferred to that specialist. Correspondence from that specialist and any available testing were reviewed during today's visit. 49. Former smoker The patient was counseled on the importance of maintaining cigarette smoking abstinence. The patient continues to refrain from smoking and is committed to avoiding tobacco use. 50. H/O thyroidectomy The patient is seeing a medical technologist chief for this condition, treatment is deferred to that specialist. Correspondence from that specialist and any available testing were reviewed during today's visit. 51. Height loss This is a chronic medical condition that is stable since last assessment. No changes in treatment are suggested at this time. 52. High risk medication use The patient is seeing a medical technologist chief for this condition, treatment is deferred to [...] last assessment. Can be referred to ENT ifneeded. 57. LPRD (laryngopharyngeal reflux disease) This is [...] last assessment. Can be referred to ENT ifneeded. Follow up in about 6 months (around 01/06/2025) for Hypertension. Marla MEDEIROS PA-C documented in this encounterSaint John's Breech [facility] Medical [id number] History of Present illness Narrative* Margaux Walker MA - 07/02/2024 9:30 AM EDTAssociated Order(s): L Inj/Asp: R glenohumeral Post-Procedure Diagnose(s): Complete tear of right rotator cuff, unspecified whether traumatic L Inj/Asp: R glenohumeral on 07/02/2024 9:57 AM Indications: pain Details: 25 G needle, ultrasound-guided Medications: 12 mg betamethasone acetate-betamethasone sodium phosphate 6 (3-3) MG/ML Consent was given by the patient. * Lazaro Milian, - 07/02/2024 9:30 AM EDT Images from the original note were [...] Daily RT cholecalciferol (Vitamin D-3) 1.25 MG (78494 UT) capsule Take one capsule daily Copper [...] (LOPRESSOR) 25 mg, Oral, Every 12 hours [place]-3 Fatty Acids (Fish Oil) 1200 MG capsule [...] rotation, resisted supination, or forward flexion. Negative [place]'s. Negative Neer/Keita impingement. No tenderness over the [...] shoulder was performed. The patient's hand was placedin the lap in the supinated position. The biceps tendon, subscapularis, and pectoralis major were visualized at the anterior aspect of the shoulder. The acromioclavicular joint was then identified atthe superior aspect of the shoulder. The patient's [...] of 2 mL of 1% plain lidocaine and2 mL of betamethasone was then injected. The [...] note was created using voice recognition through [employer]. documented in this encounterSaint John's Breech [facility] Medical [id number] History of Present illness Narrative* Emily Park NP - 06/24/2024 1:30 PM EDT Subjective Patient ID: Marla Figueredo is a [...] the morning. cholecalciferol (Vitamin D-3) 1.25 MG (25181 UT) capsule Take one capsule daily 100 [...] (25 mg) by mouth every 12 (twelve) tablet 3 [place]-3 Fatty Acids (Fish Oil) 1200 MG capsule [...] No follow-ups on file. documented in this encounterSaint John's Breech [facility] Medical [id number] Evaluation + Plan note* Assessment & Plan Note - Trung Rivas MD - 06/23/2024 11:06 AM EDTAssociated Problem(s): Subclinical hypothyroidism Continue monitoring. We will obtain thyroid function studies prior to her next appointment [facility]04-15-2025 Evaluation + Plan note* Assessment & Plan Note - Trung Rivas MD - 06/23/2024 11:06 AM EDTAssociated Problem(s): Vitamin D deficiency 25 hydroxy vitamin-D levels at target on current regimen. We will obtain 25 hydroxyvitamin D prior to her next appointment in 1 year [facility]04-15-2025 Miscellaneous Notes* Assessment & Plan Note - Trung Rivas MD - 06/23/2024 11:06 AM EDTAssociated Problem(s): Subclinical hypothyroidism Continue monitoring. We will obtain thyroid function studies prior to her next appointment * Assessment & Plan Note - Trung Rivas MD - 06/23/2024 11:06 AM EDTAssociated Problem(s): Vitamin D deficiency 25 hydroxy vitamin-D levels at target on current regimen. We will obtain 25 hydroxyvitamin D prior to her next appointment in 1 year * Assessment & Plan Note - Trung Rivas MD - 06/23/2024 11:05 AM EDTAssociated Problem(s): Primary hyperparathyroidism No compelling reasons to recommend parathyroidectomy. We will continue serum calcium monitoring * Assessment & Plan Note - Trung Rivas MD - 06/23/2024 11:05 AM EDTAssociated Problem(s): Age-related osteoporosis without current pathological fracture Patient doing well on calcium and vitamin-D supplementation without clinical evidence of fractures.On a drug holiday after completing 5 years of Reclast. We will obtain a follow-up bone mineral density in March 2025. Fall precautions and the importance of exercise discussed with patient documented in this encounterCrystal Clinic [facility] Center04-15-2025 Evaluation + Plan note* Assessment & Plan Note - Trung Rivas MD - 06/23/2024 11:05 AM EDTAssociated Problem(s): Primary hyperparathyroidism No compelling reasons to recommend parathyroidectomy. We will continue serum calcium monitoring [facility]04-15-2025 Evaluation + Plan note* Assessment & Plan Note - Trung Rivas MD - 06/23/2024 11:05 AM EDTAssociated Problem(s): Age-related osteoporosis without current pathological fracture Patient doing well on calcium and vitamin-D supplementation without clinical evidence of fractures.On a drug holiday after completing 5 years of Reclast. We will obtain a follow-up bone mineral density in March 2025. Fall precautions and the importance of exercise discussed with patient [facility]04-15-2025 History of Present illness Narrative* Trung Rivas MD - 06/23/2024 9:30 AM EDT Reason for visit: Primary Hyperparathyroidism Secondary hyperparathyroidism [...] of D3 and 3 capsules of 5000 unitsof D3. She is also taking calcium 650 mg 2 tablets daily. . Blood work from June 2024 showed a serum calcium of 9.9, 25-hydroxyvitamin D 64, cr 0.8. Previous 24-hour urine showed normal urinary calcium at 101, high urinary sodium at 270. Mrs. Figueredo also has low bone mineral density. She was previously getting yearly Reclast infusions at the [facility] on a drug holiday after she completed 5 years of treatment. BMD done in July 2017 [place] showed a L1-L2 T score of -1.7, [...] November 2013. Had a Dexa scan at [facility] in [facility] in March 2023 which showed a lumbar spine T-score of -1.4, left femoral neck T-score -1.7, r ight femoral neck T-score of -2.1 right total hip T-score of -2.3. Past Medical History: Diagnosis Date Osteopenia Primary hyperparathyroidism Vitamin D deficiency Current Outpatient Medications: ascorbic acid, vitamin C, (VITAMIN C) 1000 mg tablet, Vitamin C 1,000 mg tablet Take 1 tablet twicea day by oral route., Disp: , Rfl: [...] , CREATININE , CALCIUMUR , CREATININEUR , [id number] , PTHINTACT , VITD25 , MG ASSESSMENT: [...] of exercise discussed with patient Primary hyperparathyroidism ([facility]) No compelling reasons to recommend parathyroidectomy. We will continue serum calcium monitoring Vitamin D deficiency 25 hydroxy vitamin-D levels at target on current regimen. We will obtain 25 hydroxyvitamin D prior to her next appointment in 1 year Subclinical hypothyroidism Continue monitoring. We will obtain thyroid function studies prior to her next appointment documented in this encounterCrystal [facility]02-20-2025 History of Present illness Narrative* Emily Park NP - 04/30/2024 1:00 PM EST Images from the original note were not [...] the morning. cholecalciferol (Vitamin D-3) 1.25 MG (64770 UT) capsule Take one capsule daily 100 [...] (25 mg) by mouth every 12 (twelve) [id number] tablet 3 [place]-3 Fatty Acids (Fish Oil) 1200 MG capsule [...] area of forming blisters to the right anteriorleg Neurological: General: No focal deficit present. Mental [...] up with the lymphedema clinic when she returnsfrom her vacation. - cephalexin (Keflex) 500 MG capsule; Take 1 capsule (500 mg) by mouth in the morning and 1 capsule(500 mg) in the evening and 1 capsule (500 mg) before bedtime. Do all this for 10 days. Dispense: 30 capsule; Refill: 0 No follow-ups on file. documented in this [facility]02-20-2025 Instructions* Patient Instructions* Emily Park NP - 04/30/2024 1:00 PM EST Keflex is added today. documented in this [facility]02-06-2025 History of Present illness Narrative* Emily Park NP - 04/16/2024 3:30 PM EST Images from the original note were not [...] the morning. cholecalciferol (Vitamin D-3) 1.25 MG (91591 UT) capsule Take one capsule daily 100 [...] (25 mg) by mouth every 12 (twelve) [id number] tablet 3 [place]-3 Fatty Acids (Fish Oil) 1200 MG capsule [...] No follow-ups on file. documented in this encounterSaint John's Breech [facility] Medical [id number] Instructions* Patient Instructions* Emily Park NP - 04/16/2024 3:30 PM EST Augmentin added Flonase added Refill of feso4 is sent. documented in this [facility]01-08-2025 History of Present illness Narrative* Sherlyn Rucker DO - 03/18/2024 9:45 AM EST Images from the original note were not [...] smear 02/15/23 wnl, Mammogram 02/20/23 wnl @ [facility] 03/25/23 Review of Systems - General: [...] Review Audit Reviewed by Ivette Rizo MA (Middle School Tutor) on 03/18/24 at 0935 Medication Order Taking? Sig Documenting Provider Last Dose Status Ascorbic Acid (vitamin C) 1000 MG tablet [id number] No 2 tablets Historical Provider, Taking Active aspirin 81 MG EC tablet [id number] Take 1 tablet by mouth in the morning. Historical ProviderMD Active calcium carbonate 1500 (600 Ca) MG tablet [id number] No Take 600 mg by mouth in the morning. Emily Park NP Taking Active Discontinued 03/12/24911 cholecalciferol (Vitamin D-3) 1.25 MG (31625 UT) capsule [id number] No Take one capsule daily Noel Farnsworth MD Taking Active Copper Gluconate 2 MG tablet [id number] No Take 1 tablet by mouth in the morning. Emily Park NP Taking Active famotidine (Pepcid) 20 MG tablet [id number] No TAKE 1 TABLET BY MOUTH EVERY DAY AT BEDTIME NEEDED for 90 Historical ProviderMD Taking Active ferrous sulfate 325 (65 Fe) MG tablet [id number] No TAKE 1 TABLET BY MOUTH 3 TIMES A WEEK (SATURDAY, SATURDAY,SATURDAY) Patient taking differently: Take 325 mg by mouth in the morning and 325 mg before bedtime. Noel Farnsworth MD Taking Active fluticasone (Flonase) 50 MCG/ACT nasal spray [id number] No Administer 1 spray into each nostril in the morning. Shake gently. Before first use, prime pump. After use, clean tip and replace cap.. KATIE Parker Taking Active loratadine (Claritin) 10 MG tablet [id number] No 1 (one) time each day at the same time. Historical ProviderMD Taking Active MAGNESIUM PO [id number] No Take 250 mg by mouth in the morning. Emily Park NP Taking Active metoprolol tartrate (Lopressor) 25 MG tablet [id number] No Take 1 tablet (25 mg) by mouth every 12 (twelve) hours Noel Farnsworth MD Taking Active [place]-3 Fatty Acids (Fish Oil) 1200 MG capsule delayed-release [id number] No Fish Oil Historical ProviderMD Taking Active pantoprazole (ProtoNix) 40 MG EC tablet [id number] TAKE 1 TABLET BY MOUTH DAILY Noel Farnsworth MD Active potassium chloride CR (Klor-Con M20) 20 MEQ ER tablet [id number] No TAKE 4 TABLETS BY MOUTH EVERY DAYHistorical ProviderMD Taking Active spironolactone (Aldactone) 25 MG tablet [id number] No Take 25 mg by mouth in the morning and 25 mg before bedtime. Historical Provider, Taking Active sulfamethoxazole-trimethoprim (Bactrim DS) 800-160 MG per tablet [id number] Take 1 tablet by mouth inthe morning and 1 tablet before bedtime. Do all this for 7 days. Noel Farnsworth MD Active torsemide (Demadex) 20 MG tablet [id number] No TAKE 1 TABLET BY MOUTH EVERY DAY Mallory Stewart MD Taking Active Turmeric 500 MG tablet [id number] No Take 1 tablet by mouth in the morning. Emily Park NP Taking Active warfarin (Coumadin) 5 MG tablet [id number] No 1 (one) time each day at the same time. Historical Provider, Taking Active zinc gluconate 50 MG tablet [id number] No Take 50 mg by mouth in the morning. Emily Park NP TakingActive Past Medical History: Diagnosis Date A-fib ([facility]) Acute sinusitis Anemia DVT (deep venous thrombosis) ([facility]) GERD (gastroesophageal reflux disease) History of medical problems mucoperiosteal thickening maxillary sinuses History of medical problems 12/23/2019 ECHO EF 55-60% Mitral valve prolapse Seasonal allergic rhinitis Thyroid disease ([facility]) Trigger finger, acquired Past Surgical History: Procedure [...] to gross testing, coordination, and gait are normalor at baseline unless noted below. General Examination: [...] patient is to contact the office with anychanges to her gynecological condition. The patient is to return in 1 year or as needed ICD-10-CM 1. Vaginal atrophy N95.2 2. Encounter for mammogram to establish baseline mammogram Z12.31 documented in this encounterSaint John's [facility]ree[facility] [id number] History of Present illness Narrative* Noel Farnsworth MD - 03/12/2024 9:00 AM EST Images from the original note were not [...] sinus issues. Admits sinus pressure, congestion post nasaldrainage, sore throat, hoarseness. She finished abx was [...] the morning. cholecalciferol (Vitamin D-3) 1.25 MG (90516 UT) capsule Take one capsule daily 100 [...] (25 mg) by mouth every 12 (twelve) tablet 3 [place]-3 Fatty Acids (Fish Oil) 1200 MG capsule [...] 0.55 - 1.02 mg/dL Final [facility] EGFR-AF LITHUANIAN 01/20/2024 >60 >=60 mL/min/1.73m 2 Final [facility] EGFR-NON AF LITHUANIAN 01/20/2024 >60 >=60 mL/min/1.73m 2 Final BUN [...] - 1245 pg/mL Final Comment: Performed at: [address] [id number] [employer]: Bharat Cain PhD, Phone: [phone] VITAMIN B1 (THIAMINE), BLOOD 01/20/2024 193.7 66.5 - 200.0 nmol/L Final Comment: This test was developed and its performance characteristics determined by [facility]. It has not been cleared or approved by the Food and Drug Administration. Performed at: [address] [id number] [employer] [employer]: Bernice Gant MD, Phone: [phone] COPPER LEVEL 01/20/2024 88 80 - 158 ug/dL Final Comment: This test was developed and its performance characteristics determined by [facility]. It has not been cleared or approved by the Food and Drug Administration. Detection Limit = 5 ZINC LEVEL 01/20/2024 90 44 - 115 ug/dL Final Comment: This test was developed and its performance characteristics determined [facility]. It has not been cleared or approved by the Food and Drug Administration. Detection Limit = 5 Performed at: [address] [id number] [employer]: Bernice Gant MD, Phone: [phone] VITAMIN A, SERUM 01/20/2024 51.2 22.0 - 69.5 ug/dL Final Comment: Reference intervals for vitamin A determined from [facility] internal studies. Individuals with vitamin A less than 20 ug/dL are considered vitamin A deficient and those with serum concentrations less than 10 ug/dL are considered severely deficient. This test was developed and its performance characteristics determined by [facility]. It has not been cleared or approved by the Food and Drug Administration. Performed at: [address] [id number] [place] [employer]: Bernice Gant MD, Phone: [phone] Assessment/Plan Diagnoses and all orders for this [...] 09/09/2024) for Routine F/U. documented in this encounterSaint John's Bree[facility] Medical [id number] History of Present illness Narrative* Noel Farnsworth MD - 02/28/2024 9:00 AM EST Images from the original note were not [...] the morning. cholecalciferol (Vitamin D-3) 1.25 MG (99139 UT) capsule Take one capsule daily 100 [...] (25 mg) by mouth every 12 (twelve) [id number] tablet 3 [place]-3 Fatty Acids (Fish Oil) 1200 MG capsule [...] for Test/Lab Review, Recheck. documented in this encounterSaint John's Breech [facility] Medical [id number] History of Present illness Narrative* KATIE Parker - 01/03/2024 12:00 PM EDT Images from the original note [...] apnea. Wanting to discuss the Watchman Procedure. [place] that this is for A fib. Current [...] the morning. cholecalciferol (Vitamin D-3) 1.25 MG (54537 UT) capsule Take one capsule daily 100 [...] (25 mg) by mouth every 12 (twelve) [id number] tablet 3 [place]-3 Fatty Acids (Fish Oil) 1200 MG capsule [...] rest. Can continue to take OTC allergy medicationfor symptomatic relief, restart Flonase for next week. Continue humidifier. Contact office if no improvement after one week of symptoms. Laryngitis - COMMON RESPIRATORY BACTERIAL/VIRAL INFECTION (HTRX); Future Advised most laryngitis is caused by a virus. Will r/o other cause with nasal swab today. Will notify pt of results once received. Longstanding persistent atrial fibrillation (CMS/HCC) The patient is seeing a medical technologist chief for this condition, treatment is deferred to [...] or fail to improve. documented in this encounterSaint John's Bree[facility] Medical [id number] History of Present illness Narrative* Lazaro Milian, - 01/02/2024 9:00 AM EDT Images from the original note were [...] her initial visit, but therapy has provided somerelief. She is requesting another cortisone injection today. [...] Daily RT cholecalciferol (Vitamin D-3) 1.25 MG (27921 UT) capsule Take one capsule daily Copper [...] (LOPRESSOR) 25 mg, Oral, Every 12 hours [place]-3 Fatty Acids (Fish Oil) 1200 MG capsule [...] rotation, resisted supination, or forward flexion. Negative [place]'s. Negative Neer/Keita impingement. No tenderness over the AC joint. Negative cross-arm adduction. Negative Speed's and Yergason's. No instability. Ortho Exam Results MRI of the right shoulder performed at the [facility] on 10/09/2022; report and images are reviewed. [...] shoulder was performed. The patient's hand was placedin the lap in the supinated position. The biceps tendon, subscapularis, and pectoralis major were visualized at the anterior aspect of the shoulder. The acromioclavicular joint was then identified atthe superior aspect of the shoulder. The patient's [...] of 2 mL of 1% plain lidocaine and2 mL of betamethasone was then injected. The [...] note was created using voice recognition through [employer]. * FRANCK Morel - 01/02/2024 9:00 AM EDTAssociated Order(s): L Inj/Asp: R glenohumeral Post-Procedure Diagnose(s): Complete tear of right rotator cuff, unspecified whether traumatic L Inj/Asp: R glenohumeral on 01/02/2024 9:18 AM Indications: pain Details: 25 G needle, ultrasound-guided Medications: 2 mL betamethasone acetate-betamethasone sodium phosphate 6 (3-3) MG/ML Consent was given by the patient. documented in this encounterSaint John's Breech Regional Medical [id number] History of Present illness Narrative* Mily Hackett MD - 11/28/2023 9:30 AM EDT Subjective Marla Figueredo is a 68 y.o. [...] Coumadin managed by the Coumadin clinic at [facility]. 2-essential hypertension under control on metoprolol. 3- history of severe lower extremity edema and cellulitis with recent flareup on the right side requiring therapy with improvement 4-morbid obesity status post bariatric surgery but remains in class II obesity, more aggressive weight loss was recommended 5-high risk medication with anticoagulation with no bleeding problems. 6-nuclear stress test in [place] several years ago was normal, no need [...] Take 80 tablets (80,000 Units) by mouth oncedaily., Disp: , Rfl: copper gluconate 2 mg [...] by mouth once daily., Disp: 90 tablet, Rfl:3 turmeric root extract 500 mg tablet, Take 1 tablet by mouth once daily., Disp: , Rfl: warfarin (Coumadin) 2.5 mg tablet, Take by mouth. As directed by [place] [facility], Disp: , Rfl: zinc gluconate [...] Attestation By signing my name below, I, Carlotta Hima Lorenzo LPN attest that this documentation has been prepared under the direction and in the presence of Mily Hackett MD. Provider Attestation - Scribe documentation All medical record entries made by the Scribe were at my direction and personally dictated by me. Ihave reviewed the chart and agree that the record accurately reflects my personal performance of the history, physical exam, discussion and plan. documented in this encounterSumma Health Work Phone: 1(227) 115-475409-19-2024 Instructions* Patient Instructions* Carlotta Ybarra LPN - 11/28/2023 9:30 AM [...] 64.1 Lbs Provided instructions on dietary changes. * Attachments The following attachments cannot be sent through Care Everywhere. * Mediterranean Diet ([place]) documented in this encounterSumma Health Work Phone: 1(837) 519-994408-20-2024 History of Present illness Narrative* Denisha Gracia NP - 10/29/2023 9:30 AM EDT Images from the original note were [...] the morning. cholecalciferol (Vitamin D-3) 1.25 MG (48564 UT) capsule Take one capsule daily 100 [...] (25 mg) by mouth every 12 (twelve) tablet 3 [place]-3 Fatty Acids (Fish Oil) 1200 MG capsule [...] controlled. Continue with current medications and I willcontinue to monitor. Goal BP remains less than [...] suggested at this time. 13. Senile osteoporosis (CMS/HCC) This is a chronic medical condition [...] Discussed minimizing high carb, high sugar, high sodium,portion control, and processed foods while making healthy choice replacements. Additionally discussed recommendations of 30 minutes of aerobic exercise at least 5 days per week, that includes, walking, and chair exercises. . Instructed importance of drinking adequate water consumption (if not on fluid restriction) with minimal sugar and caffiene. 15. Hyperparathyroidism ([facility]) Followed by endocrinology 16. Morbid obesity ([facility]) Discussed goal of BMI < 30. Advised on weight loss options. Encouraged diet and exercise. Discussed with patient appropriate lifestyle modification changes necessary for weight management, heart healthy eating and overall health promotion. Discussed minimizing high carb, high sugar, high sodium,portion control, and processed foods while making healthy choice replacements. Additionally discussed recommendations of 30 minutes of aerobic exercise at least 5 days per week, that includes, walking, and chair exercises. . Instructed importance of drinking adequate water consumption (if not on fluid restriction) with minimal sugar and caffiene. 17. Non-toxic multinodular goiter ([facility]) This is a chronic medical condition that is stable since last assessment. No changes in treatment are suggested at this time. - TSH; Future - TSH 18. Thyroid disease ([facility]) Followed by endocrinolgy 19. Vitamin B-complex deficiency [...] this time. Followed by hematology 22. Thrombocytopenia ([facility]) Followed by hematology 23. Fibrocystic breast changes, [...] 30. Body mass index (BMI) 40.0-44.9, adult ([facility]) Discussed goal of BMI < 30. Advised on weight loss options. Encouraged diet and exercise. Discussed with patient appropriate lifestyle modification changes necessary for weight management, heart healthy eating and overall health promotion. Discussed minimizing high carb, high sugar, high sodium,portion control, and processed foods while making healthy choice replacements. Additionally discussed recommendations of 30 minutes of aerobic exercise at least 5 days per week, that includes, walking, and chair exercises. . Instructed importance of drinking adequate water consumption (if not on fluid restriction) with minimal sugar and caffiene. 31. Other thrombophilia ([facility]) Followed by hematology 32. Secondary hyperparathyroidism of renal origin ([facility]) Followed by endocrinology 33. Primary hyperparathyroidism ([facility]) Followed by endocrinology - Comprehensive metabolic panel; Future - Comprehensive metabolic panel 34. Secondary hyperparathyroidism, not elsewhere classified ([facility]) Followed by endocrinology 35. Medicare annual wellness visit, subsequent Reviewed all relevant preventative screenings with the patient in detail. Medicare Wellness form completed and will be scanned into patient's chart. All needed testing was ordered. Will continue withyearly Medicare Wellness exams. - TSH; Future - CBC; Future - Comprehensive metabolic panel; Future - TSH - CBC - Comprehensive metabolic panel 36. [facility] Reviewed all relevant preventative screenings with the patient in detail. Medicare Wellness form completed and will be scanned into patient's chart. All needed testing was ordered. Will continue withyearly Medicare Wellness exams. 37. Hypomagnesemia Await lab [...] Do you have a medical power of estate attorney?: No Objective : BP 120/75 Pulse [...] in living will or durable power of estate attorney. No orders of the defined types were placed in this encounter. Electronically signed by Denisha Gracia NP on October 29, 2023 documented in this encounterSaint John's Breech [facility] Medical [id number] History of Present illness Narrative* Mily Hackett MD - 05/13/2023 2:00 PM EST Subjective Marla Figueredo is a 67 y.o. [...] Coumadin managed by the Coumadin clinic at [facility]. 2-essential hypertension under control on metoprolol. 3- history of severe lower extremity edema and Neurontin event resolved on medical therapy. We willcontinue triple diuretics and follow renal function closely.. 4-morbid obesity status post bariatric surgery but remains in class II obesity, more aggressive weight loss was recommended 5-high risk medication with anticoagulation with no bleeding problems. 6-nuclear stress test in [place] several years ago was normal, no need [...] Take 80 tablets (80,000 Units) by mouth oncedaily., Disp: , Rfl: copper gluconate 2 mg [...] tablet, Take by mouth. As directed by [place] [facility], Disp: , Rfl: zinc gluconate [...] by mouth once daily., Disp: 90 tablet, Rfl:3 Assessment/Plan 1. Permanent atrial fibrillation with RVR [...] my name below, Dianne Mejia LPN , Scribdebbie attest that this documentation has been prepared under the direction and in the presence of Mily Hackett MD. Provider Attestation - Scribe documentation All medical record entries made by the Scribe were at my direction and personally dictated by me. Ihave reviewed the chart and agree that the record accurately reflects my personal performance of the history, physical exam, discussion and plan. documented in this encounterSumma Health Work Phone: 1(283) 860-692203-04-2024 Instructions* Patient Instructions* Dianne Gerardo LPN - 05/13/2023 2:00 PM [...] instructions on dietary changes. documented in this encounterSumma Health Work Phone: [phone]) 807-122902-07-2024 History of Present illness Narrative* Noel Farnsworth MD - 04/17/2023 2:15 PM EST Subjective Patient ID: Marla Figueredo is a [...] the morning. cholecalciferol (Vitamin D-3) 1.25 MG (20551 UT) capsule Take one capsule daily 100 [...] (25 mg) by mouth every 12 (twelve) tablet 3 metroNIDAZOLE (Flagyl) 500 MG tablet Take 500 mg by mouth in the morning. [place]-3 Fatty Acids (Fish Oil) 1200 MG capsule [...] and sinus pain. Negative for ear pain andsore throat. Respiratory: Negative for cough, shortness of [...] or fail to improve. documented in this encounterSaint John's Breech [facility] Medical [id number] NotePROCEDURE: CT CSPINE WO CON COMPARISON: None. HISTORY: [...] Electronically authenticated by: HARPREET QUINTERO Date: 2021-11-10 14:37[place]07-08-2022 NotePROCEDURE: XR FOOT LT MIN 3 VIEWS HISTORY: Pain in left [...] Electronically authenticated by: BETY GIORDANO Date: 2021-09-15 16:00[place] + Plan note Future Appointments Appointment Date:12/02/2024 08:45:00 AM Scheduled Provider:Aditi Eduardo MD Location:[facility] Appointment Type:URO Office Visit [facility] evaluation + Plan note Future Appointments Appointment Date:05/19/2025 09:00:00 AM Scheduled Provider:Nona Barahona PA-C Location:[facility] Appointment Type:URO Office Visit [facility] evallywrcd noteNo assessment information available [facility] Work Phone: Evaluation note* Diagnosis Acute non-recurrent sinusitis, unspecified location documented in this encounter [facility]* Diagnosis Permanent atrial fibrillation with RVR ([facility])- Primary Essential hypertension Unspecified essential hypertension Hypokalemia Hypopotassemia BMI 39.0-39.9,adult Former smoker Personal history of tobacco use, presenting hazards to health Obstructive sleep apnea Obstructive sleep apnea (adult) (pediatric) High risk medication use documented in this encounter [facility] Work Phone: Evaluation note* Diagnosis Complete tear of right rotator cuff, unspecified whether traumatic- Primary documented in this encounter [facility]* Diagnosis Acute URI- Primary Acute upper respiratory infections of unspecified site Laryngitis Acute laryngitis, without mention of obstruction Longstanding persistent atrial fibrillation (CMS/HCC) Right ear impacted cerumen Impacted cerumen documented in this encounter [facility] HealthcareEvaluation note* Diagnosis Permanent atrial fibrillation with [...] risk medication use documented in this encounter [facility] Work Phone: Evaluation note* Diagnosis Medicare annual [...] Primary hyperparathyroidism Secondary hyperparathyroidism, not elsewhere classified ([facility]) Routine general medical examination at health care facility Routine general medical examination at a health care facility Hypomagnesemia Disorders of magnesium metabolism Disorder of left eustachian tube documented in this encounter [facility]Evaluation [facility]* Diagnosis Acute non-recurrent sinusitis, unspecified location- Primary Acute cystitis without hematuria Anemia, unspecified type documented in this encounter [facility]* Diagnosis Acute non-recurrent sinusitis, unspecified location- Primary Acute cystitis without hematuria Anemia, unspecified type documented in this encounter [facility] HealthcareEvaluation note* Diagnosis Vaginal atrophy Postmenopausal atrophic vaginitis Encounter for mammogram to establish baseline mammogram Other screening mammogram documented in this encounter [facility] HealthcareEvaluation note* Diagnosis Acute non-recurrent sinusitis, unspecified location- Primary Edema of lower extremity Bariatric surgery status Unspecified atrial fibrillation ([facility]) Morbid (severe) obesity due to excess calories ([facility]) Body mass index (BMI) 40.0-44.9, adult ([facility]) documented in this encounter [facility] HealthcareEvaluation note* Diagnosis Cellulitis, unspecified cellulitis site- Primary documented in this encounter [facility] HealthcareEvaluation note* Diagnosis Hyperparathyroidism- Primary Hyperparathyroidism, unspecified Age-related osteoporosis without current pathological fracture Vitamin D deficiency- Primary Subclinical hypothyroidism Other specified acquired hypothyroidism Primary hyperparathyroidism Age-related osteoporosis without current pathological fracture Subclinical hypothyroidism- Primary Other specified acquired hypothyroidism Vitamin D deficiency Age-related osteoporosis without current pathological fracture documented in this encounter [facility] System[facility]* Diagnosis Complete tear of right rotator cuff, unspecified whether traumatic- Primary documented in this encounter [facility] HealthcareEvaluation note* Diagnosis Medicare annual wellness visit, subsequent- Primary ACP (advance care planning) Other specified counseling Elevated AST (SGOT) Other problems related to lifestyle Primary hypertension ([facility]) Unspecified essential hypertension Neck pain Cervicalgia Bilateral carpal tunnel syndrome Carpal tunnel syndrome Lumbar radiculopathy Thoracic or lumbosacral neuritis or radiculitis, unspecified Obstructive sleep apnea syndrome Obstructive sleep apnea (adult) (pediatric) Right cervical radiculopathy Mild intermittent asthmatic bronchitis without complication ([facility]) Longstanding persistent atrial fibrillation ([facility]) Chronic venous insufficiency Unspecified venous (peripheral) insufficiency Mitral valve prolapse Mitral valve disorders Abnormal intestinal absorption ([facility]) Unspecified intestinal malabsorption Gastroesophageal reflux disease without [...] knee Right anterior shoulder pain Senile osteoporosis ([facility]) Senile osteoporosis Hyperparathyroidism ([facility]) Hyperparathyroidism, unspecified Morbid obesity ([facility]) Morbid obesity Non-toxic multinodular goiter ([facility]) Nontoxic multinodular goiter BMI 40.0-44.9, adult ([facility]) Subclinical hypothyroidism ([facility]) Other specified acquired hypothyroidism Vitamin B-complex deficiency Unspecified vitamin B deficiency Vitamin D deficiency Other iron deficiency anemia Thrombocytopenia ([facility]) Unspecified thrombocytopenia Other chronic sinusitis Anticoagulated Encounter [...] of right ear documented in this encounter 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[facility])- Primary Candidiasis of the esophagus Dysuria Gastroesophageal reflux disease with esophagitis without hemorrhage History of gastric bypass documented in this encounter [facility]* Diagnosis Gastroesophageal reflux disease with esophagitis without hemorrhage- Primary Alcides esophagitis (HCC) Candidiasis of the esophagus Dysuria documented in this encounter [facility] HealthcareEvaluation note* Diagnosis Permanent atrial fibrillation with RVR (Multi)- Primary Essential hypertension Unspecified essential hypertension Anticoagulated Encounter for long-term (current) use of anticoagulants Obstructive sleep apnea syndrome Obstructive sleep apnea (adult) (pediatric) Edema of both legs Edema BMI 40.0-44.9, adult (Multi) Former smoker Personal history of tobacco use, presenting hazards to health Morbid obesity (Multi) Morbid obesity documented in this encounter [facility] Work Phone: Evaluation note* Diagnosis Wound infection- Primary Posttraumatic wound infection not elsewhere classified documented in this encounter [facility] HealthcareEvaluation note* Diagnosis Gastroesophageal reflux disease with esophagitis without hemorrhage- Primary Polyp of colon, unspecified part of colon, unspecified type Obesity, unspecified class, unspecified obesity type, unspecified whether serious comorbidity present Other chronic pancreatitis (HCC) Longstanding persistent atrial fibrillation (HCC) Diverticulosis Diverticulosis of colon (without mention of hemorrhage) documented in this encounter [facility] HealthcareEvaluation note* Diagnosis Acute cystitis with hematuria- Primary Urinary urgency Urgency of urination Morbid obesity ([facility]) Morbid obesity documented in this encounter [facility] HealthcareEvaluation note* Diagnosis Mild intermittent asthmatic bronchitis without complication (HCC)- Primary documented in this encounter [facility] HealthcareEvaluation note* Diagnosis Hyperparathyroidism- Primary Hyperparathyroidism, unspecified Age-related osteoporosis without current pathological fracture Vitamin D deficiency- Primary Subclinical hypothyroidism Other specified acquired hypothyroidism Primary hyperparathyroidism Age-related osteoporosis without current pathological fracture Subclinical hypothyroidism- Primary Other specified acquired hypothyroidism Vitamin D deficiency Age-related osteoporosis without current pathological fracture Subclinical hypothyroidism- Primary Other specified acquired hypothyroidism Vitamin D deficiency documented in this encounter [facility] System[facility]* Diagnosis Right anterior shoulder pain documented in this encounter [facility] HealthcareHospital course Narrative No data available for this section [facility] Hospital Discharge instructions Additional Instructions DISCHARGE INSTRUCTIONS FOR UPPER ENDOSCOPY WHAT TO EXPECT: - You may feel full, gassy or cramping after your procedure. In some cases, this may be from a few hours to a day. Walking may help relieve the discomfort. - Your throat may feel sore today from the scope that the doctor passed through your throat to visualize your stomach. Take a throat lozenge or suck on ice to ease the discomfort. - You may notice some streaks of blood in your sputum if the doctor has taken a biopsy. - You should begin to recover from anesthesia within 1 hour of the procedure, however may feel groggy for the next 24 hours. DO's AND DON'Ts: - Call your doctor right away if you have a hard abdomen, severe pain, vomiting or if you cough up large amounts of blood. - Call your doctor if you develop any rashes, hives or difficulty breathing. - If you take 81 mg aspirin for your heart it is safe to resume this medication. - If you take other blood thinner medications your doctor will instruct you when these can safely be resumed. - Do NOT drive for 24 hours. - Do NOT operate machinery such as power tools, [employer] mowers, snow blowers, sewing machines, etc. for 24 hours. - Avoid alcoholic beverages and drugs for allergies, nerves, or sleep. - Do NOT stay alone. Do NOT leave your child unattended. - Do NOT make important personal or business decisions or sign any legal documents. - Eat solid foods and drink liquids in smaller amounts than usual until normal appetite returns. If you should experience an upset stomach, liquids high in sugar content (soda, Gt-Aid, non-acid juices) are recommended. - Do NOT smoke. - Do take it easy today. You need not stay in bed, but avoid strenuous activities such as jogging or working out. DISCHARGE INSTRUCTIONS FOR COLONOSCOPY WHAT TO EXPECT: - You may feel full, gassy or cramping after your procedure. In some cases, this may be from a few hours to a day. Walking may help relieve the discomfort. - If you have polyp(s) removed you may note some minor bloody discharge after your first bowel movements. - You should begin to recover from anesthesia within 1 hour of the procedure, however may feel groggy for the next 24 hours. DO's AND DON'Ts: - Call your doctor right away if you have a hard abdomen, sever pain, are passing lots of bright red blood or clots. - Call your doctor if you develop any rashes, hives or difficulty breathing. - Let your doctor know if you have not had a bowel movement by 3 days after your procedure. - If you take 81 mg aspirin for your heart it is safe to resume this medication. - If you take other blood thinner medications your doctor will instruct you when these can safely be resumed. - Do NOT drive for 24 hours. - Do NOT operate machinery such as power tools, lawn mowers, snow blowers, sewing machines, etc. for 24 hours. - Avoid alcoholic beverages and drugs for allergies, nerves, or sleep. - Do NOT stay alone. Do NOT leave your child unattended. - Do NOT make important personal or business decisions or sign any legal documents. - Eat solid foods and drink liquids in smaller amounts than usual until normal appetite returns. If you should experience an upset stomach, liquids high in sugar content (soda, Gt-Aid, non-acid juices) are recommended. - You can resume normal activities tomorrow. FOLLOW UP & RECOMMENDATIONS: -Please call the office and make a follow up appointment to see me if symptoms persist -Notify the doctor if you have any problems. -Repeat colonoscopy in 3 years with a 2-day bowel prep -Follow up with PCP. - Office number [phone]. [facility] Work Phone: InstructionsNot on filedocumented in this encounter [facility] System[facility]ructionsNot on filedocumented in this encounter [facility] SystemProgress note No data available for this section [facility] reason for referral (narrative)* Consultation (Routine) - AuthorizedSpecialtyDiagnoses / ProceduresReferred By ContactReferred To ContactCardiology Diagnoses Permanent atrial fibrillation with RVR ([facility]) Procedures Follow Up In Cardiology Mily Hackett MD [address] [facility] [address], [place] [address] [place] [id number] Mily Hackett MD [address] [facility] [address], [place] [address] [place] [address] Referral IDStatusReasonStart DateExpiration DateVisits RequestedVisits [id number]/ [facility] Work Phone: reason for referral (narrative)* Consultation (Routine) - AuthorizedSpecialtyDiagnoses / ProceduresReferred By Contact Referred To ContactCardiology Diagnoses Permanent atrial fibrillation with RVR (Multi) Procedures Follow Up In Cardiology Mily Hackett MD [address] [place] [address] [address], [address] [address] Mily Hackett MD [address] [place] [address] 2, [address] [address] Referral IDStatusReasonStart DateExpiration DateVisits RequestedVisits [id number]/[id number]/ [facility] Work Phone: reason for referral (narrative)No reason for referral information availableDay[facility] Work Phone: Summary Purpose Family History Unknown Family Member Name Dates Details Family history of cerebrovas cular accident (CVA): Mother, Father(V17.1, Z82.3) Status:ActiveFH: Parkinson's disease: Father(V17.2, Z82.0) Status:ActiveFamily history of myocardial infarction: Brother(V17.3, Z82.49) Status:ActiveFamily history of throat cancer: Brother(V16.0, Z80.0) Status:Active Unknown Family Member Name Dates Details Family history of cerebrovas cular accident (CVA): Mother, Father(V17.1, Z82.3) Status:ActiveFH: Parkinson's disease: Father(V17.2, Z82.0) Status:ActiveFamily history of myocardial infarction: Brother(V17.3, Z82.49) Status:ActiveFamily history of throat cancer: Brother(V16.0, Z80.0) Status:Active Unknown Family Member Name Dates Details Family history of cerebrovas cular accident (CVA): Mother, Father(V17.1, Z82.3) Status:ActiveFH: Parkinson's disease: Father(V17.2, Z82.0) Status:ActiveFamily history of myocardial infarction: Brother(V17.3, Z82.49) Status:ActiveFamily history of throat cancer: Brother(V16.0, Z80.0) Status:Active Unknown Family Member Name Dates Details Family history of throat can cer: Brother(V16.0, Z80.0) Status:ActiveFamily history of myocardial infarction: Brother(V17.3, Z82.49) Status:ActiveFH: Parkinson's disease: Father(V17.2, Z82.0) Status:ActiveFamily history of cerebrovascular accident (CVA): Mother, Father (V17.1, Z82.3) Status:Active Unknown Family Member Name Dates Details Family history of cerebrovas cular accident (CVA): Mother, Father(V17.1, Z82.3) Status:ActiveFH: Parkinson's disease: Father(V17.2, Z82.0) Status:ActiveFamily history of myocardial infarction: Brother(V17.3, Z82.49) Status:ActiveFamily history of throat cancer: Brother(V16.0, Z80.0) Status:Active Unknown Family Member Name Dates Details Family history of throat can cer: Brother(V16.0, Z80.0) Status:ActiveFamily history of myocardial infarction: Brother(V17.3, Z82.49) Status:ActiveFH: Parkinson's disease: Father(V17.2, Z82.0) Status:ActiveFamily history of cerebrovascular accident (CVA): Mother, Father (V17.1, Z82.3) Status:Active Unknown Family Member Name Dates Details Family history of cerebrovas cular accident (CVA): Mother, Father(V17.1, Z82.3) Status:ActiveFH: Parkinson's disease: Father(V17.2, Z82.0) Status:ActiveFamily history of myocardial infarction: Brother(V17.3, Z82.49) Status:ActiveFamily history of throat cancer: Brother(V16.0, Z80.0) Status:Active Unknown Family Member Name Dates Details Family history of cerebrovas cular accident (CVA): Mother, Father(V17.1, Z82.3) Status:ActiveFH: Parkinson's disease: Father(V17.2, Z82.0) Status:ActiveFamily history of myocardial infarction: Brother(V17.3, Z82.49) Status:ActiveFamily history of throat cancer: Brother(V16.0, Z80.0) Status:Active Relationship Condition Age at Onset Recorded Date/T vadim father History of stroke Unknown DeceasedUnknownDiabetes mellitusUnknownmotherDiabetes mellitusUnknownHistory of strokeUnknown Relationship Condition Age at Onset Recorded Date/T vadim father Diabetes mellitus Unknown DeceasedUnknownHistory of strokeUnknownmotherDiabetes mellitusUnknownfamily memberMalignant neoplasm of colonUnknown Advance Directives Advance Directive Response Recorded Date/ Time Advance Directives No June 10 12:52pm Advance Directive Response Recorded Date/ Time Advance Directives No June 10 1:52pm Chief Complaint MARLA FIGUEREDO is being seen [...] Coumadin managed by the Coumadin clinic at [facility]. We agreed to pursue rate control versus [...] [facility]. She does have chronic lower extremity edema [...] Coumadin managed by the Coumadin clinic at [facility]. We agreed to pursue rate control versus [...] fibrillation managed by the Coumadin clinic at [facility]. Her weight is couple pounds below her [...] Coumadin managed by the Coumadin clinic at [facility]. * 2 essential hypertension under control on [...] problems. * 6 nuclear stress test in [place] several years ago was normal, no need [...] fibrillation managed by the Coumadin clinic at [facility]. Her weight is couple pounds below her [...] Coumadin managed by the Coumadin clinic at [facility]. * 2 essential hypertension under control on [...] problems. * 6 nuclear stress test in [place] several years ago was normal, no need [...] Date Screening March 19, 2024 1: 14pm Chief Complaint Admit Date Lymphedema - legs August 25, 2024 8:00 am GERD, HX GASTRIC BYPASS, FAM HX CRC, ABD PAIN September 15, 2024 10:23am Additional Source Comments INFORMATION SOURCE (unrecogn ized section and content) DATE CREATED AUTHOR 07/29/2018 [facility] DATE CREATED AUTHOR AUTHOR'S ORGANIZ ATION 08/17/2022 [facility] DATE CREATED AUTHOR AUTHOR'S ORGANIZ ATION 10/24/2022 [employer] DATE CREATED AUTHOR AUTHOR'S ORGANIZ ATION 12/23/2022 [facility] DATE CREATED AUTHOR AUTHOR'S ORGANIZ ATION 06/19/2023 [facility] DATE CREATED AUTHOR AUTHOR'S ORGANIZ ATION 05/31/2024 [facility] DATE CREATED AUTHOR AUTHOR'S ORGANIZ ATION 06/24/2024 [facility] DATE CREATED AUTHOR AUTHOR'S ORGANIZ ATION 08/30/2024 [facility] DATE CREATED AUTHOR AUTHOR'S ORGANIZ ATION 09/27/2024 [facility] DATE CREATED AUTHOR AUTHOR'S ORGANIZ ATION 12/03/2024 [facility] DATE CREATED AUTHOR AUTHOR'S ORGANIZ ATION 12/04/2024 [facility] DATE CREATED AUTHOR AUTHOR'S ORGANIZ ATION 12/11/2024 [facility] DATE CREATED AUTHOR AUTHOR'S ORGANIZ ATION 12/12/2024 [facility] DATE CREATED AUTHOR AUTHOR'S ORGANIZ ATION 01/01/2025 [facility] EPIC Care Teams (unrecognized sec tion and content) Team Status: Inactive Member Role Status Dates Noel Farnsworth II MD Primary Care Provider Active Sherlyn Rucker , DOReferring ProviderActiveaMrla Knight HOTEL CASINO FLOORPERSON-CAttending ProviderActive Team Status: Active Member Role Status Dates Noel Farnsworth II MD Primary Care Provider Active Marla Knight PA-CAttenjuany ProviderActive Team Status: Active Member Role Status Dates Noel Farnsworth II MD Primary Care Provider Active Team Status: Inactive Member Role Status Dates Noel Farnsworth II MD Primary Care Provider Active Marla Knight PA-CAttenjuany ProviderActive Team Status: Inactive Member Role Status Dates Noel Farnsworth II MD Primary Care Provider Active Referral SelfAttending ProviderActive Team Status: Inactive Member Role Status Dates Noel Farnsworth II MD Primary Care Provider, Attending Provider Active Team MemberRelationshipSpecialtyStart DateEnd Date Noel Farnsworth MD [address] [facility] [address] [place] [address] PCP - GeneralInternal Medicine08/14/22Team MemberRelationshipSpecialtyStart Date End Date Noel Farnsworth MD [address] [facility] [address] [place] [address] PCP - GeneralInternal Medicine08/14/22Team MemberRelationshipSpecialtyStart Date End Date Noel Farnsworth MD [address] [facility] [address] [place] [address] PCP - General10/19/22Team MemberRelationshipSpecialtyStart DateEnd Date Noel Farnsworth MD [address] [facility] [address] [place] [address] PCP - GeneralInternal Medicine08/14/22Team MemberRelationshipSpecialtyStart Date End Date Noel Farnsworth MD [address] [place] [address] [place] [address] PCP - GeneralInternal Medicine08/14/22Team MemberRelationshipSpecialtyStart Date End Date Noel Farnsworth MD [address] [place] [address] [place] [address] PCP - GeneralInternal Medicine08/14/22Team MemberRelationshipSpecialtyStart Date End Date Noel Farnsworth MD [address] [place] [address] [place] [address] PCP - GeneralInternal Medicine08/14/22Team MemberRelationshipSpecialtyStart Date End Date Noel Farnsworth MD [address] [place] [address] [place] [address] PCP - General10/19/22Team MemberRelationshipSpecialtyStart DateEnd Date Noel Farnsworth MD [address] [place] [address] [place] [address] PCP - GeneralInternal Medicine08/14/22Team MemberRelationshipSpecialtyStart Date End Date Noel Farnsworth MD [address] [place] [address] [place] [address] PCP - GeneralInternal Medicine08/14/22Team MemberRelationshipSpecialtyStart Date End Date Noel Farnsworth MD [address] [place] [address] [place] [address] PCP - GeneralInternal Medicine08/14/22Team MemberRelationshipSpecialtyStart Date End Date Noel Farnsworth MD [address] [place] [address] [place] [address] PCP - GeneralInternal Medicine08/14/22 Team Status: Inactive Member Role Status Dates Noel Farnsworth II MD Primary Care Provider Active Start: March 19, 2024 End: March 19, 2024Katarnoldo Rucker Safia ProviderActiveStart: March 19, 2024 End: March 19, 2024Team MemberRelationshipSpecialtyStart DateEnd Date Noel Farnsworth MD [address] [place] [address] [place] [address] PCP - GeneralInternal Medicine08/14/22Team MemberRelationshipSpecialtyStart Date End Date Noel Farnsworth MD [address] [place] [address] [place] [address] PCP - GeneralInternal Medicine08/14/22Team MemberRelationshipSpecialtyStart Date End Date Noel Farnsworth MD [address] [place] [address] [place] [address] PCP - GeneralInternal Medicine08/14/22Team MemberRelationshipSpecialtyStart Date End Date Noel Farnsworth MD [address] [place] [address] [place] [address] PCP - GeneralInternal Medicine08/14/22Team MemberRelationshipSpecialtyStart Date End Date Noel Farnsworth MD [address], [place] [address] [place] [address] PCP - GeneralInternal Medicine06/13/22Team MemberRelationshipSpecialtyStart Date End Date Noel Farnsworth MD [address] [place] [address] [place] [address] PCP - GeneralInternal Medicine08/14/22Team MemberRelationshipSpecialtyStart Date End Date Noel Farnsworth MD [address] [place] [address] [place] [address] PCP - GeneralInternal Medicine08/14/22Team MemberRelationshipSpecialtyStart Date End Date Noel Farnsworth MD [address] [place] [address] [place] [address] PCP - GeneralInternal Medicine08/14/22Team MemberRelationshipSpecialtyStart Date End Date Noel Farnsworth MD [address] [place] [address] [place] [address] PCP - GeneralInternal Medicine08/14/22Team MemberRelationshipSpecialtyStart Date End Date Noel Farnsworth MD [address] [place] [address] [place] [address] PCP - GeneralInternal Medicine08/14/22Team MemberRelationshipSpecialtyStart Date End Date Noel Farnsworth MD [address] [place] [address] [place] [address] PCP - General10/19/22 Team Status: Inactive Member Role Status Dates Noel Farnsworth II MD Primary Care Provider Active Start: August 25, 2024 End: August 25, 2024Emily Park NP-CAttenjuany ProviderActiveStart: August 25, 2024 End: August 25, 2024 Team Status: Active Member Role Status Dates Noel Farnsworth II MD Primary Care Provider Active Start: September 15, 2024 Fernanda L Ly , DOAttending ProviderActiveStart: September 15, 2024 Fernanda L Ly , DOOther ProviderActiveStart: September 15, 2024 Team MemberRelationshipSpecialtyStart DateEnd Date oNel Farnsworth MD [address] [place] [address] [place] [address] PCP - GeneralInternal Medicine08/14/22Team MemberRelationshipSpecialtyStart Date End Date Noel Farnsworth MD [address] [place] [address] [place] [address] PCP - GeneralInternal Medicine08/14/22Team MemberRelationshipSpecialtyStart Date End Date Noel Farnsworth MD [address], [place] [address] [place] [address] PCP - GeneralInternal Medicine06/13/22Team MemberRelationshipSpecialtyStart Date End Date Noel Farnsworth MD [address] [place] [address] [place] [address] PCP - GeneralInternal Medicine08/14/22Team MemberRelationshipSpecialtyStart Date End Date Noel Farnsworth MD [address] [place] [address] [place] [address] PCP - GeneralInternal Medicine08/14/22Team MemberRelationshipSpecialtyStart Date End Date Noel Farnsworth MD [address] [place] [address] [place] [address] PCP - GeneralInternal Medicine08/14/22 Goals (unrecognized section and content) Goals may be documented in a n alternate sectionGoals may be documented in an alternate sectionGoals may be documented in an alternate sectionGoals may be documented in an alternate sectionGoals may be documented in an alternate sectionGoals may be documented in an alternate sectionNot on filedocumented as of this encounter No data available for this sectionGoals may be documented in an alternate section No data available for this sectionNot on filedocumented as of this encounter Reason for Visit (unrecogniz ed section and content) [id number] CommentsFollow-up6 monthsSpecialtyDiagnoses / ProceduresReferred By Contact Referred To ContactCardiology Diagnoses Permanent atrial fibrillation with RVR (Multi) Procedures Follow Up In Cardiology Mily Hackett MD [address] [facility] [address], [place] [address] [place] [address] Mily Hackett MD [address] [facility] [address], [place] [address] [place] [address] Referral IDStatusReasonStart DateExpiration DateVisits RequestedVisits [id number]tcexlh LABS--SPECIFICALLY THE CBC RESULTSUTIReasonCommentsFollow-upSinusitis/uti- treated with abxResultslabsAnemiaReasonCommentsGynecologic ExamPt states notice since last year notice a little more bladder leakage. Pt States she was told by a friend to do Kegel exercise. Denies vaginal bleeding/spotting. Denies breast concerns. Pt is scheduled tomorrow for mammogram.ReasonCommentsLeg Swelling ReasonCommentsThyroid ProblemReasonCommentsMedicare Annual Wellness Visit SubsequentBack PainCervical pain, she was making easter bread so was not sure if her rolling the bread caused the pain, The pain has improved but still is having pain in bilateral sides of neck and does cause her to have some headaches. She has been using ice, heat, massage, tylenol. She is ?ing if maybe a few sessions of PT would help.SinusitisSinus pressure - she is on Augmentin and has been on it for 12 days, she is not sure if maybe her neck could still be affecting her sinsues.ReasonCommentsSinusitisUTIReasonCommentsGERDReason CommentsFollow-up9 month Permanent atrial fibrillation with RVR (MultiSpecialty Diagnoses / ProceduresReferred By ContactReferred To ContactCardiology Diagnoses Permanent atrial fibrillation with RVR (Multi) Procedures Follow Up In Cardiology Mily Hackett MD [address] [facility], [address] [address] Phone: tel: fax: Mily Hackett MD [address] [facility] [address], [address] [address] Phone: tel: fax: Referral IDStatusReasonStart DateExpiration DateVisits RequestedVisits [id number] FOR RECORDS PERTAINING TO PATIENTS WHO ARE [...] BE BASED ON THE PRIMARY CLINICAL RECORDS. [employer] provides no warranty or guarantee of the accuracy or completeness of information in this document.
== END 2025-02-01 07:48 | disposition home or self-care (01) ==
LOC: LAB 07:47
PROVIDERS: PCP Internal Medicine; Visit Provider Nurse Practitioner Family
DX: Z98.84 Bariatric surgery status (principal)
CPT/HCPCS: 36415; 84425

== ENCOUNTER 2025-03-02 13:19 | Outpatient (RCR) | payer MEDICARE, SELFPAY | END 2025-03-10 13:20 | disposition home or self-care (01) | LOC: MM 13:19 | PROVIDERS: PCP Internal Medicine; Visit Provider Internal Medicine | DX: Z51.81 Encounter for therapeutic drug level monitoring (principal); Z79.01 Long term (current) use of anticoagulants; I48.20 Chronic atrial fibrillation, unspecified | CPT/HCPCS: 85610; G0463 ==